=== PATIENT | male | born 1945 | race American Indian/Alaskan Native ===

== ENCOUNTER 2018-01-12 05:55 | Inpatient (IN) | payer MEDICARE, OTHER ==
[2018-01-12] MEDS ORDERED: TYLENOL PR ONE ×2 (06:35→06:46)
[2018-01-12] MEDS ORDERED: MAXIPIME/NS 2 GM/100 ML 2 GM/100 ML BAG IV ONE (06:57)
[2018-01-12] MEDS ORDERED: NACL 0.9% 1000 ML IV ONE (06:57)
--- NOTE | 2018-01-12 07:00 | Emergency Department Report ---
ED General Adult HPI - General Chief complaint: GI Bleed Stated complaint: GI BLEED Time Seen by Provider: 01/12/18 06:46 Source: EMS (ems notes not available at time of chart dictation), RN notes reviewed, old records reviewed Mode of arrival: Stretcher Limitations: Altered Mental Status, Physical Limitation - History of Present Illness Initial comments: This is a 72-year-old male. The patient is previously known to this provider, has a past medical history of stroke, neurogenic dysphasia, recent placement of a PEG tube, comes to us from a local retirement where his primary physician there is Dr. Lay. Patient is sent to the ER by his retirement for evaluation of coffee-ground emesis. Upon arrival to the ER, the patient was found to be septic with a fever and tachycardia. He had urine culture sent last month which demonstrated the following organism: P Stuartii; which was pansensitive with the exception of nitrofurantoin, tetracycline, and tobramycin. The patient is nonverbal and cannot describe exacerbating or relieving factors. No further history is available at this time. Patient found to have suspected pneumonia in the ER, he was hypoxic and placed on room oxygen. A CT scan of the abdomen and pelvis read demonstrated pneumonia, with no obvious intra-abdominal source of infection. Patient was treated empirically according to the sepsis pathway, and had appropriate broad-spectrum antibiotics given. Given renal insufficiency, he was given vancomycin and cefepime instead of Zosyn, which can predispose to worsening renal insufficiency. He is also given Levaquin. Case was discussed with gastroenterology, Dr. Ramos, his group will follow in consultation. Case is presented to the Hospital physician, Dr. Nick Rodrigues; she accepted the patient to the medical service. -: Gradual Severity scale (0 -10): 0 Consistency: other Improves with: other Associated Symptoms: confusion, fever/chills, weakness, other - Related Data Home Medications Medication Instructions Recorded Confirmed Last Taken Amlodipine Besylate [Norvasc] 10 mg PO DAILY 12/27/17 12/27/17 Unknown Finasteride [Proscar] 5 mg PO DAILY 12/27/17 12/27/17 Unknown Previous Rx's Medication Instructions Recorded Last Taken Type Apixaban [Eliquis] 5 mg PO BID #60 tablet 01/04/18 Unknown Rx Aspirin [Aspirin EC] 81 mg PO DAILY #30 tablet. 01/04/18 Unknown Rx AtorvaSTATin [Lipitor] 80 mg PO QHS #30 tablet 01/04/18 Unknown Rx Cefuroxime [Ceftin] 500 mg PO Q12H 5 Days tablet 01/04/18 Unknown Rx HYDROcodone/ACETAMINOPHEN [[place] 1 each PO Q6H PRN #10 tablet 01/04/18 Unknown Rx 5-325 Tablet] Metoprolol [Lopressor TAB] 25 mg PO BID #60 tablet 01/04/18 Unknown Rx Pantoprazole [Protonix] 40 mg PO QDAY #30 tablet 01/04/18 Unknown Rx hydrALAZINE [Apresoline TAB] 50 mg PO Q8HR #30 tablet 01/04/18 Unknown Rx Allergies Allergy/AdvReac Type Severity Reaction Status Date / Time No Known Allergies Allergy Verified 12/26/14 12:14 ED Review of Systems ROS: Stated complaint: GI BLEED Other details as noted in HPI Comment: Unobtainable due to pts medical conditions ED Past Medical Hx - Past Medical History Hx Hypertension: Yes Hx Heart Attack/AMI: No Hx Diabetes: Yes Hx Renal Disease: Yes Hx Sickle Cell Disease: No Hx Seizures: No Hx Kidney Stones: Yes Hx Asthma: No Hx COPD: No Hx Dementia: Yes Additional medical history: high cholesterol. ulcers. anemia. Alzheimer's. Dementia - Surgical History Hx Pacemaker: No Hx Internal Defibrillator: No - Social History Smoking Status: Unknown if ever smoked Substance Use Type: None - Medications Home Medications: Home Medications Medication Instructions Recorded Confirmed Last Taken Type Amlodipine Besylate [Norvasc] 10 mg PO DAILY 12/27/17 12/27/17 Unknown History Finasteride [Proscar] 5 mg PO DAILY 12/27/17 12/27/17 Unknown History Apixaban [Eliquis] 5 mg PO BID #60 tablet 01/04/18 Unknown Rx Aspirin [Aspirin EC] 81 mg PO DAILY #30 tablet. 01/04/18 Unknown Rx AtorvaSTATin [Lipitor] 80 mg PO QHS #30 tablet 01/04/18 Unknown Rx Cefuroxime [Ceftin] 500 mg PO Q12H 5 Days tablet 01/04/18 Unknown Rx HYDROcodone/ACETAMINOPHEN [[place] 1 each PO Q6H PRN #10 tablet 01/04/18 Unknown Rx 5-325 Tablet] Metoprolol [Lopressor TAB] 25 mg PO BID #60 tablet 01/04/18 Unknown Rx Pantoprazole [Protonix] 40 mg PO QDAY #30 tablet 01/04/18 Unknown Rx hydrALAZINE [Apresoline TAB] 50 mg PO Q8HR #30 tablet 01/04/18 Unknown Rx ED Physical Exam - General Limitations: Altered Mental Status, Physical Limitation General appearance: lethargic - Head Head exam: Present: atraumatic, normocephalic - Eye Eye exam: Present: normal appearance - ENT ENT exam: Present: mucous membranes dry - Neck Neck exam: Present: normal inspection, full ROM - Respiratory Respiratory exam: Present: respiratory distress, rales, rhonchi - Cardiovascular Cardiovascular Exam: Present: normal rhythm, tachycardia, normal heart sounds. Absent: systolic murmur, diastolic murmur, rubs, gallop - GI/Abdominal GI/Abdominal exam: Present: soft, normal bowel sounds, other (PEG tube is in place, with no redness, pus or streaking). Absent: distended, tenderness, guarding, rebound, rigid, pulsatile mass - Rectal Rectal exam: Present: normal inspection, heme (-) stool - exam: Present: normal inspection External exam: Present: normal external exam - Extremities Exam Extremities exam: Present: normal inspection, full ROM, other (the compartments are soft. There is no palpable cord.). Absent: tenderness, pedal edema, joint swelling - Back Exam Back exam: Present: normal inspection. Absent: tenderness, CVA tenderness (R), paraspinal tenderness, vertebral tenderness - Neurological Exam Neurological exam: Present: altered, other (nonverbal. Moving 4 extremities. Neurologic examination limited secondary to delirium and acute septic illness.) - Psychiatric Psychiatric exam: Present: normal affect, normal mood - Skin Skin exam: Present: warm, dry, intact, normal color. Absent: rash ED Course Vital Signs 01/12/18 01/12/18 01/12/18 06:06 06:23 06:47 Temperature 101.3 F H Pulse Rate 108 H 98 H Respiratory 28 H 16 16 Rate Blood Pressure Blood Pressure 123/81 [Left] O2 Sat by Pulse 91 95 95 Oximetry 01/12/18 01/12/18 01/12/18 07:00 07:30 09:10 Temperature 100.2 F H 100.2 F H Pulse Rate 100 H 97 H 106 H Respiratory 24 18 18 Rate Blood Pressure 120/80 Blood Pressure 121/80 129/90 [Left] O2 Sat by Pulse 93 100 100 Oximetry ED Medical Decision Making - Lab Data Result diagrams: 01/12/18 07:19 01/12/18 07:19 Vital Signs 01/12/18 01/12/18 01/12/18 06:06 06:23 06:47 Temperature 101.3 F H Pulse Rate 108 H 98 H Respiratory 28 H 16 16 Rate Blood Pressure Blood Pressure 123/81 [Left] O2 Sat by Pulse 91 95 95 Oximetry 01/12/18 01/12/18 01/12/18 07:00 07:30 09:10 Temperature 100.2 F H 100.2 F H Pulse Rate 100 H 97 H 106 H Respiratory 24 18 18 Rate Blood Pressure 120/80 Blood Pressure 121/80 129/90 [Left] O2 Sat by Pulse 93 100 100 Oximetry Lab Results 01/12/18 01/12/18 01/12/18 Range/Units 06:35 07:11 07:19 WBC 12.3 H (4.5-11.0) K/mm3 RBC 4.18 (3.65-5.03) M/mm3 Hgb 12.3 (11.8-15.2) gm/dl Hct 37.6 (35.5-45.6) % MCV 90 (84-94) fl MCH 29 (28-32) pg MCHC 33 (32-34) % RDW 15.2 (13.2-15.2) % Plt Count 524 H (140-440) K/mm3 Lymph % (Auto) 4.6 L (13.4-35.0) % [place] % (Auto) 4.5 (0.0-7.3) % Eos % (Auto) 0.7 (0.0-4.3) % Baso % (Auto) 0.4 (0.0-1.8) % Lymph # 0.6 L (1.2-5.4) K/mm3 Clark # 0.5 (0.0-0.8) K/mm3 Eos # 0.1 (0.0-0.4) K/mm3 Baso # 0.0 (0.0-0.1) K/mm3 Seg Neutrophils % 89.8 H (40.0-70.0) % Seg Neutrophils # 11.0 H (1.8-7.7) K/mm3 PT 17.2 H (12.2-14.9) Sec. INR 1.33 H (0.87-1.13) Sodium (137-145) mmol/L Potassium (3.6-5.0) mmol/L Chloride (98-107) mmol/L Carbon Dioxide (22-30) mmol/L Anion Gap mmol/L BUN (9-20) mg/dL Creatinine (0.8-1.5) mg/dL Estimated GFR ml/min BUN/Creatinine Ratio % Glucose (75-100) mg/dL Lactic Acid (0.7-2.0) mmol/L Calcium (8.4-10.2) mg/dL Magnesium (1.7-2.3) mg/dL Total Bilirubin (0.1-1.2) mg/dL AST (5-40) units/L ALT (7-56) units/L Alkaline Phosphatase (35-129) units/L Troponin T (0.00-0.029) ng/mL Total Protein (6.3-8.2) g/dL Albumin (3.9-5) g/dL Albumin/Globulin Ratio % Triglycerides (2-149) mg/dL Cholesterol (50-199) mg/dL LDL Cholesterol Direct (50-130) mg/dL HDL Cholesterol (40-59) mg/dL Cholesterol/HDL Ratio % Urine Color Yellow (Yellow) Urine Turbidity Clear (Clear) Urine pH 6.0 (5.0-7.0) Ur Specific [place] 1.014 (1.003-1.030) Urine Protein <15 mg/dl (Negative) mg/dL Urine Glucose (UA) Neg (Negative) mg/dL Urine Ketones Neg (Negative) mg/dL Urine Blood Neg (Negative) Urine Nitrite Neg (Negative) Urine Bilirubin Neg (Negative) Urine Urobilinogen < 2.0 (<2.0) mg/dL Ur Leukocyte Esterase Neg (Negative) Urine WBC (Auto) 1.0 (0.0-6.0) /HPF Urine RBC (Auto) 4.0 (0.0-6.0) /HPF U Epithel Cells (Auto) < 1.0 (0-13.0) /HPF Urine Mucus Few /HPF 01/12/18 01/12/18 01/12/18 Range/Units 07:19 07:19 07:19 WBC (4.5-11.0) K/mm3 RBC (3.65-5.03) M/mm3 Hgb (11.8-15.2) gm/dl Hct (35.5-45.6) % MCV (84-94) fl MCH (28-32) pg MCHC (32-34) % RDW (13.2-15.2) % Plt Count (140-440) K/mm3 Lymph % (Auto) (13.4-35.0) % Clark % (Auto) (0.0-7.3) % Eos % (Auto) (0.0-4.3) % Baso % (Auto) (0.0-1.8) % Lymph # (1.2-5.4) K/mm3 Clark # (0.0-0.8) K/mm3 Eos # (0.0-0.4) K/mm3 Baso # (0.0-0.1) K/mm3 Seg Neutrophils % (40.0-70.0) % Seg Neutrophils # (1.8-7.7) K/mm3 PT (12.2-14.9) Sec. INR (0.87-1.13) Sodium 143 (137-145) mmol/L Potassium 4.8 (3.6-5.0) mmol/L Chloride 104.3 (98-107) mmol/L Carbon Dioxide 23 (22-30) mmol/L Anion Gap 21 mmol/L BUN 43 H (9-20) mg/dL Creatinine 1.7 H (0.8-1.5) mg/dL Estimated GFR 48 ml/min BUN/Creatinine Ratio 25 % Glucose 118 H (75-100) mg/dL Lactic Acid 1.20 (0.7-2.0) mmol/L Calcium 9.5 (8.4-10.2) mg/dL Magnesium 2.90 H (1.7-2.3) mg/dL Total Bilirubin 1.70 H (0.1-1.2) mg/dL AST 62 H (5-40) units/L ALT 46 (7-56) units/L Alkaline Phosphatase 105 (35-129) units/L Troponin T 0.172 H* (0.00-0.029) ng/mL Total Protein 8.3 H (6.3-8.2) g/dL Albumin 3.6 L (3.9-5) g/dL Albumin/Globulin Ratio 0.8 % Triglycerides 76 (2-149) mg/dL Cholesterol 90 (50-199) mg/dL LDL Cholesterol Direct 39 L (50-130) mg/dL HDL Cholesterol 35 L (40-59) mg/dL Cholesterol/HDL Ratio 2.57 % Urine Color (Yellow) Urine Turbidity (Clear) Urine pH (5.0-7.0) Ur Specific [place] (1.003-1.030) Urine Protein (Negative) mg/dL Urine Glucose (UA) (Negative) mg/dL Urine Ketones (Negative) mg/dL Urine Blood (Negative) Urine Nitrite (Negative) Urine Bilirubin (Negative) Urine Urobilinogen (<2.0) mg/dL Ur Leukocyte Esterase (Negative) Urine WBC (Auto) (0.0-6.0) /HPF Urine RBC (Auto) (0.0-6.0) /HPF U Epithel Cells (Auto) (0-13.0) /HPF Urine Mucus /HPF - EKG Data -: EKG Interpreted by Fl EKG shows normal: sinus rhythm Rate: tachycardia - EKG Data Interpretation: unchanged when compared t 01/12/18 09:21 Sinus tachycardia, 100 bpm, low voltage, left axis deviation, poor R-wave progression, abnormal EKG, not consistent with a STEMI, appears unchanged when compared to prior EKG from December 28 - Radiology Data Radiology results: report reviewed, image reviewed X-ray the chest, interpreted by radiology: Lower lobe pneumonia CT scan of the abdomen and pelvis, interpreted by radiology: Bilateral lower lobe pneumonia/atelectasis - Medical Decision Making Differential diagnosis, including but not limited to: Sepsis, pneumonia, bacteremia, urinary tract infection patient is managed according to the sepsis pathway and algorithm. Blood cultures, lactic acid ordered, appropriate fluid bolus has been administered. The patient does not demonstrate the need for vasopressor requirements at this time. Critical care attestation.: If time is entered above; I have spent that time in minutes in the direct care of this critically ill patient, excluding procedure time. ED Disposition Clinical Impression: Sepsis Disposition: OP ADMIT IP TO THIS HOSP Is pt being admited?: Yes Condition: Fair Referrals: PRIMARY CARE, [Primary Care Provider] - 3-5 Days Forms: Accompanied Note
[2018-01-12 07:04] LABS: Bilirubin,Urine NEG (Negative); Blood,Urine NEG (Negative); Color,Urine Yellow (Yellow); Mucus,Urine FEW /HPF; Protein,Urine <15 mg/dL mg/dL (Negative); Urobilinogen,Urine < 2.0 mg/dL (<2.0)
--- NOTE | 2018-01-12 07:33 | XRay Report ---
FINAL REPORT EXAM: XR CHEST 1V AP HISTORY: Fever/Sepsis. TECHNIQUE: A single frontal portable radiograph of the chest was obtained. No prior studies are available for comparison. FINDINGS: There is moderate lordotic positioning. The heart is normal in size, and the aortic arch is moderately calcified. There is hazy opacification at the retrocardiac left lung base, in keeping with infiltrate/atelectasis. There is no pleural effusion or pneumothorax. Mild spondylotic changes are seen in the spine. IMPRESSION: Opacification of the left lung base, in keeping with infiltrate and/or atelectasis.
[2018-01-12] MEDS ORDERED: NACL 0.9% 250ML 250 ML ONE (07:39)
[2018-01-12 07:42] LABS: Basophils % (Auto) 0.4 % (0.0-1.8); Eosinophils # (Auto) 0.1 K/mm3 (0.0-0.4); Eosinophils % (Auto) 0.7 % (0.0-4.3); Hematocrit 37.6 % (35.5-45.6); Hemoglobin 12.3 gm/dl (11.8-15.2); Lymphocytes # (Auto) 0.6 K/mm3 (1.2-5.4); Lymphocytes % (Auto) 4.6 % (13.4-35.0); Mean Corpuscular HGB Conc 33 % (32-34); Mean Corpuscular Hemoglobin 29 pg (28-32); Mean Corpuscular Volume 90 fl (84-94); Monocytes # (Auto) 0.5 K/mm3 (0.0-0.8); Monocytes % (Auto) 4.5 % (0.0-7.3); Platelet Count 524 K/mm3 (140-440); Red Blood Count 4.18 M/mm3 (3.65-5.03); Red Cell Distribution Width 15.2 % (13.2-15.2)
[2018-01-12 07:53] LABS: INR 1.33 (0.87-1.13)
[2018-01-12] MEDS ORDERED: PROTONIX IV ONE (08:00)
[2018-01-12] MEDS ORDERED: VANCOMYCIN/NS 1 GM/250 ML 1 GM/250 ML BAG IV NR (08:00)
[2018-01-12] MEDS ORDERED: MAXIPIME 2 GM in NACL 0.9% 20 ML IV ONE (08:00)
[2018-01-12 08:26] LABS: Albumin 3.6 g/dL (3.9-5); Calcium 9.5 mg/dL (8.4-10.2)
[2018-01-12 09:00] LABS: Chol/HDL Ratio 2.57 %
--- NOTE | 2018-01-12 09:08 | Cat Scan Report ---
CT scan of abdomen and pelvis without IV contrast: History: Fever and sepsis. Findings: Left basilar atelectasis/infiltrate. No pleural pericardial effusion. Moderate size sliding hiatal hernia. Faint calcification liver probably old calcified granuloma. No mass. No intrahepatic or extrahepatic duct dilatation. Normal pancreas and spleen. Suspicion of tiny calculi in the gallbladder. Normal adrenals. Vascular calcifications in the kidneys. No calculi kidney parenchyma or bladder. 1.9 cm cyst left kidney No free intraperitoneal fluid or air. No evidence of an adenopathy. Atherosclerotic aorta. Fecal impaction in rectum. Moderate amount of stool in colon. No significant distention. No evidence of appendicitis or diverticulitis. Stable gastrostomy tube. Impression: Left basilar atelectasis/infiltrates. Moderate-sized sliding hiatal hernia. Suspicion of tiny calculi in the gallbladder. Cystoscopy left kidney. Additional findings as detailed above
[2018-01-12] MEDS ORDERED: LEVAQUIN 750MG/150ML 750 MG/150 ML BAG IV ONE (09:12)
[2018-01-12] MEDS ORDERED: NORCO 5/325 PO PRN (10:43)
--- NOTE | 2018-01-12 10:48 | History and Physical Report ---
History of Present Illness Date of examination: 01/12/18 Date of admission: 01/12/18 09:23 Chief complaint: Coffee-ground emesis History of present illness: 72-year-old male patient with history of CVA dysphagia recently underwent PEG placement in intermediate resident presented to the emergency room with history of coffee-ground emesis. Initial evaluation in the emergency room is consistent with possible pneumonia Patient unable to give proper history, Initial evaluation also revealed acute kidney injury, leukocytosis and mild elevation of troponin Past History Past Medical History: hypertension, hyperlipidemia, stroke (the residual weakness, dysphagia), other (carotid artery stenosis) Past Surgical History: Other (PEG placement) Social history: full code, other (intermediate resident). denies: smoking, alcohol abuse Family history: hypertension Medications and Allergies Allergies Allergy/AdvReac Type Severity Reaction Status Date / Time No Known Allergies Allergy Verified 12/26/14 12:14 Home Medications Medication Instructions Recorded Confirmed Last Taken Type Amlodipine Besylate [Norvasc] 10 mg PO DAILY 12/27/17 01/12/18 Unknown History Finasteride [Proscar] 5 mg PO DAILY 12/27/17 01/12/18 Unknown History Apixaban [Eliquis] 5 mg PO BID #60 tablet 01/04/18 01/12/18 Unknown Rx Aspirin [Aspirin EC] 81 mg PO DAILY #30 tablet. 01/04/18 01/12/18 Unknown Rx AtorvaSTATin [Lipitor] 80 mg PO QHS #30 tablet 01/04/18 01/12/18 Unknown Rx HYDROcodone/ACETAMINOPHEN [[place] 1 each PO Q6H PRN #10 tablet 01/04/18 01/12/18 Unknown Rx 5-325 Tablet] Metoprolol [Lopressor TAB] 25 mg PO BID #60 tablet 01/04/18 01/12/18 Unknown Rx hydrALAZINE [Apresoline TAB] 50 mg PO Q8HR #30 tablet 01/04/18 01/12/18 Unknown Rx Active Meds: Active Medications Acetaminophen/Hydrocodone Bitart ([place] 5/325) 1 each PO Q6H PRN PRN Reason: Pain Amlodipine Besylate (Norvasc) 10 mg PO DAILY DERREK Atorvastatin Calcium (Lipitor) 80 mg PO QHS DERREK Finasteride (Proscar) 5 mg PO DAILY DERREK Hydralazine HCl (Apresoline) 50 mg PO Q8HR DERREK Metoprolol Tartrate (Lopressor) 25 mg PO BID DERREK Pantoprazole Sodium (Protonix) 40 mg IV BID DERREK Review of Systems ROS unobtainable: due to mental status Exam - Constitutional Vitals: Temp Pulse Resp BP Pulse Ox 100.2 F H 106 H 18 129/90 100 01/12/18 09:10 01/12/18 09:10 01/12/18 09:10 01/12/18 09:10 01/12/18 09:10 General appearance: Present: no acute distress, cachectic, disheveled, other ( noncommunicative) - EENT Eyes: Present: PERRL, EOM intact - Neck Neck: Present: supple, normal ROM - Respiratory Respiratory effort: normal Respiratory: bilateral: diminished, rhonchi, negative: rales, wheezing - Cardiovascular Rhythm: regular Heart Sounds: Present: S1 & S2 - Extremities Extremities: no ischemia, No edema - Abdominal General gastrointestinal: Present: soft, non-tender, non-distended, normal bowel sounds, other (PEG in place) - Integumentary Integumentary: Present: clear, warm - Musculoskeletal Musculoskeletal: other (residual weakness) - Psychiatric Psychiatric: other (noncommunicative) - Neurologic Neurologic: other (CVA with history of weakness) Results - Labs CBC & Chem 7: 01/12/18 07:19 01/12/18 07:19 Labs: Abnormal lab results 01/12/18 01/12/18 01/12/18 Range/Units 07:11 07:19 07:19 WBC 12.3 H (4.5-11.0) K/mm3 Plt Count 524 H (140-440) K/mm3 Lymph % (Auto) 4.6 L (13.4-35.0) % Lymph # 0.6 L (1.2-5.4) K/mm3 Seg Neutrophils % 89.8 H (40.0-70.0) % Seg Neutrophils # 11.0 H (1.8-7.7) K/mm3 PT 17.2 H (12.2-14.9) Sec. INR 1.33 H (0.87-1.13) BUN 43 H (9-20) mg/dL Creatinine 1.7 H (0.8-1.5) mg/dL Glucose 118 H (75-100) mg/dL Magnesium (1.7-2.3) mg/dL Total Bilirubin 1.70 H (0.1-1.2) mg/dL AST 62 H (5-40) units/L Troponin T 0.172 H* (0.00-0.029) ng/mL Total Protein 8.3 H (6.3-8.2) g/dL Albumin 3.6 L (3.9-5) g/dL LDL Cholesterol Direct 39 L (50-130) mg/dL HDL Cholesterol 35 L (40-59) mg/dL 01/12/18 Range/Units 07:19 WBC (4.5-11.0) K/mm3 Plt Count (140-440) K/mm3 Lymph % (Auto) (13.4-35.0) % Lymph # (1.2-5.4) K/mm3 Seg Neutrophils % (40.0-70.0) % Seg Neutrophils # (1.8-7.7) K/mm3 PT (12.2-14.9) Sec. INR (0.87-1.13) BUN (9-20) mg/dL Creatinine (0.8-1.5) mg/dL Glucose (75-100) mg/dL Magnesium 2.90 H (1.7-2.3) mg/dL Total Bilirubin (0.1-1.2) mg/dL AST (5-40) units/L Troponin T (0.00-0.029) ng/mL Total Protein (6.3-8.2) g/dL Albumin (3.9-5) g/dL LDL Cholesterol Direct (50-130) mg/dL HDL Cholesterol (40-59) mg/dL Assessment and Plan --Coffee-ground emesis; closely monitor H&H and transfuse as needed GI evaluation for possible endoscopy, Protonix --Sepsis; empiric antibiotics, follow cultures, IV fluids Consider ID evaluation if needed --Acute kidney injury; vasomotor nephropathy, gentle hydration, closely monitor renal function Avoid nephrotoxins --Left lower lobe pneumonia; continue antibiotics follow cultures and supportive care --Hypertension; moderate control, continue current antihypertensives and when necessary medications --Dyslipidemia; stable on lipid-lowering medicine --History of CVA with residual weakness; supportive care Physical therapy occupational therapy --Dysphagia; status post PEG; continue PEG care PEG feeds per protocol --DVT prophylaxis; hold Eliquis, SCDs --Full CODE STATUS
[2018-01-12] MEDS ORDERED: VANCOMYCIN PHARMACY TO DOSE IV SCH (11:00)
[2018-01-12] MEDS ORDERED: VANCOMYCIN/NS 1 GM/250 ML 1 GM/250 ML BAG IV SCH (11:00)
[2018-01-12] MEDS: ZOSYN/NS 2.25 GM/50ML 2.25 GM/50 ML BAG IV SCH ×2 (11:33→18:32)
[2018-01-12] MEDS: LOPRESSOR PO SCH ×2 (11:33→22:55)
[2018-01-12] MEDS: APRESOLINE PO SCH (13:16)
[2018-01-12] MEDS ORDERED: ZOSYN/NS 4.5GM/100ML 4.5 GM/100 ML VIAL IV SCH (14:00)
--- NOTE | 2018-01-12 17:27 | Gastroenterology Consultation ---
History of Present Illness - Reason for Consult Consult date: 01/12/18 coffee ground emesis Requesting physician: NICOLE CASTILLO - History of Present Illness Mr Swanson is a 73 yo male with h/o CVA, dementia, and neurogenic dysphagia with recent PEG tube placement who presents with intermediate with reported coffee ground emesis episode. Patient found to be septic on arrival to ED with imaging showing suspected pneumonia. Pt unable to provide history 2/2 mental status, and history obtained from chart review and discussion with care team. He has had no gi bleeding episodes since arrival to the ED and admission to the floor. No reported intolerance to peg tube feedings or blood in peg tube. No melena or hematemesis since admission. H/H normal on admission. Past History Past Medical History: diabetes, hypertension, stroke, other (dementia, ckd) Past Surgical History: Other (peg tube placement) Social history: other (unable to obtain) Family history: other (unable to obtain) Medications and Allergies Allergies Allergy/AdvReac Type Severity Reaction Status Date / Time No Known Allergies Allergy Verified 12/26/14 12:14 Home Medications Medication Instructions Recorded Confirmed Last Taken Type Amlodipine Besylate [Norvasc] 10 mg PO DAILY 12/27/17 01/12/18 Unknown History Finasteride [Proscar] 5 mg PO DAILY 12/27/17 01/12/18 Unknown History Apixaban [Eliquis] 5 mg PO BID #60 tablet 01/04/18 01/12/18 Unknown Rx Aspirin [Aspirin EC] 81 mg PO DAILY #30 tablet. 01/04/18 01/12/18 Unknown Rx AtorvaSTATin [Lipitor] 80 mg PO QHS #30 tablet 01/04/18 01/12/18 Unknown Rx HYDROcodone/ACETAMINOPHEN [[place] 1 each PO Q6H PRN #10 tablet 01/04/18 01/12/18 Unknown Rx 5-325 Tablet] Metoprolol [Lopressor TAB] 25 mg PO BID #60 tablet 01/04/18 01/12/18 Unknown Rx hydrALAZINE [Apresoline TAB] 50 mg PO Q8HR #30 tablet 01/04/18 01/12/18 Unknown Rx Active Meds: Active Medications Acetaminophen/Hydrocodone Bitart ([place] 5/325) 1 each PO Q6H PRN PRN Reason: Pain Amlodipine Besylate (Norvasc) 10 mg PO DAILY [facility]REK Atorvastatin Calcium (Lipitor) 80 mg PO QHS [facility] Finasteride (Proscar) 5 mg PO DAILY [facility] Hydralazine HCl (Apresoline) 50 mg PO Q8HR [facility] Last Admin: 01/12/18 13:16 Dose: 50 mg Piperacillin Sod/Tazobactam Sod (Zosyn/Ns 2.25 Gm/50ml) 2.25 gm in 50 mls @ 100 mls/hr IV Q6HR [facility] Last Admin: 01/12/18 11:33 Dose: 100 mls/hr Vancomycin HCl (Vancomycin/Ns 1 Gm/250 Ml) 1 gm in 250 mls @ 166.667 mls/hr IV Q24HR [facility] Metoprolol Tartrate (Lopressor) 25 mg PO BID [facility] Last Admin: 01/12/18 11:33 Dose: 25 mg Pantoprazole Sodium (Protonix) 40 mg IV BID [facility] Vancomycin HCl (Vancomycin Pharmacy To Dose) 1 each IV PKCONSULT [facility] Review of Systems - Review of Systems ROS unobtainable: due to mental status Exam - Constitutional Vital Signs: Temp Pulse Resp BP Pulse Ox 98.4 F 104 H 20 129/87 97 01/12/18 12:11 01/12/18 12:11 01/12/18 12:11 01/12/18 12:11 01/12/18 12:11 General appearance: other (non-verbal, nad, chronically ill appearing) - EENT ENT: other (dry mucous membranes) - Respiratory Respiratory effort: normal Respiratory: bilateral: CTA - Cardiovascular Rhythm: regular Heart Sounds: Present: S1 & S2 Extremities: No edema - Gastrointestinal General gastrointestinal: Present: soft, non-distended, normal bowel sounds, other (+ peg tube site c/d/i) - Neurologic Neurological: other (non-verbal) - Labs CBC & Chem 7: 01/12/18 07:19 01/12/18 07:19 Lab Results: Laboratory Results - last 24 hr 01/12/18 01/12/18 01/12/18 06:35 07:11 07:19 WBC 12.3 H RBC 4.18 Hgb 12.3 Hct 37.6 MCV 90 MCH 29 MCHC 33 RDW 15.2 Plt Count 524 H Lymph % (Auto) 4.6 L [place] % (Auto) 4.5 Eos % (Auto) 0.7 Baso % (Auto) 0.4 Lymph # 0.6 L [place] # 0.5 Eos # 0.1 Baso # 0.0 Seg Neutrophils % 89.8 H Seg Neutrophils # 11.0 H PT 17.2 H INR 1.33 H Sodium Potassium Chloride Carbon Dioxide Anion Gap BUN Creatinine Estimated GFR BUN/Creatinine Ratio Glucose POC Glucose Lactic Acid Calcium Magnesium Total Bilirubin AST ALT Alkaline Phosphatase Troponin T Total Protein Albumin Albumin/Globulin Ratio Triglycerides Cholesterol LDL Cholesterol Direct HDL Cholesterol Cholesterol/HDL Ratio Urine Color Yellow Urine Turbidity Clear Urine pH 6.0 Ur Specific [place] 1.014 Urine Protein <15 mg/dl Urine Glucose (UA) Neg Urine Ketones Neg Urine Blood Neg Urine Nitrite Neg Urine Bilirubin Neg Urine Urobilinogen < 2.0 Ur Leukocyte Esterase Neg Urine WBC (Auto) 1.0 Urine RBC (Auto) 4.0 U Epithel Cells (Auto) < 1.0 Urine Mucus Few 01/12/18 01/12/18 01/12/18 07:19 07:19 07:19 WBC RBC Hgb Hct MCV MCH MCHC RDW Plt Count Lymph % (Auto) [place] % (Auto) Eos % (Auto) Baso % (Auto) Lymph # [place] # Eos # Baso # Seg Neutrophils % Seg Neutrophils # PT INR Sodium 143 Potassium 4.8 Chloride 104.3 Carbon Dioxide 23 Anion Gap 21 BUN 43 H Creatinine 1.7 H Estimated GFR 48 BUN/Creatinine Ratio 25 Glucose 118 H POC Glucose Lactic Acid 1.20 Calcium 9.5 Magnesium 2.90 H Total Bilirubin 1.70 H AST 62 H ALT 46 Alkaline Phosphatase 105 Troponin T 0.172 H* Total Protein 8.3 H Albumin 3.6 L Albumin/Globulin Ratio 0.8 Triglycerides 76 Cholesterol 90 LDL Cholesterol Direct 39 L HDL Cholesterol 35 L Cholesterol/HDL Ratio 2.57 Urine Color Urine Turbidity Urine pH Ur Specific [place] Urine Protein Urine Glucose (UA) Urine Ketones Urine Blood Urine Nitrite Urine Bilirubin Urine Urobilinogen Ur Leukocyte Esterase Urine WBC (Auto) Urine RBC (Auto) U Epithel Cells (Auto) Urine Mucus 01/12/18 01/12/18 09:49 12:01 WBC RBC Hgb Hct MCV MCH MCHC RDW Plt Count Lymph % (Auto) [place] % (Auto) Eos % (Auto) Baso % (Auto) Lymph # [place] # Eos # Baso # Seg Neutrophils % Seg Neutrophils # PT INR Sodium Potassium Chloride Carbon Dioxide Anion Gap BUN Creatinine Estimated GFR BUN/Creatinine Ratio Glucose POC Glucose 117 H Lactic Acid 0.90 Calcium Magnesium Total Bilirubin AST ALT Alkaline Phosphatase Troponin T Total Protein Albumin Albumin/Globulin Ratio Triglycerides Cholesterol LDL Cholesterol Direct HDL Cholesterol Cholesterol/HDL Ratio Urine Color Urine Turbidity Urine pH Ur Specific [place] Urine Protein Urine Glucose (UA) Urine Ketones Urine Blood Urine Nitrite Urine Bilirubin Urine Urobilinogen Ur Leukocyte Esterase Urine WBC (Auto) Urine RBC (Auto) U Epithel Cells (Auto) Urine Mucus - Imaging CT Scan: report reviewed Assessment and Plan 1. Coffee ground emesis 2. Sepsis 3. oropharyngeal dysphagia -no signs of gi bleeding since admission and H/H stable on initial labs. given sepsis and co-morbidities, would hold off on endoscopy unless there were signs further signs of overt gi bleeding. start PPI BID dosing, trend labs. will follow.
[2018-01-12] MEDS: PROTONIX IV SCH (22:55)
[2018-01-13] MEDS: ZOSYN/NS 2.25 GM/50ML 2.25 GM/50 ML BAG IV SCH ×2 (00:02→06:55)
[2018-01-13] MEDS: APRESOLINE PO SCH ×4 (00:02→21:55)
--- NOTE | 2018-01-13 10:04 | Gastroenterology Progress Note ---
<JS ALFREDO - Last Filed: 01/13/18 10:10> Assessment and Plan 1. Coffee ground emesis 2. Sepsis/penumonia 3. oropharyngeal dysphagia (s/p PEG) -H/H stable- continue to monitor and transfuse as needed -no active signs of bleeding -no plans for an EGD at this time unless overt bleeding develops -continue PPI and supportive care -okay to resume TFs at 10ml/hr- advance per nutrition recommendations -no further GI recommendations -will sign off, please call if needed Subjective Date of service: 01/13/18 Principal diagnosis: coffee-ground emesis Interval history: No acute distress. No signs of active bleeding overnight or this am per nursing. Objective - Constitutional Vitals: Temp Pulse Resp BP Pulse Ox 97.9 F 86 20 109/71 100 01/13/18 07:54 01/13/18 07:54 01/13/18 07:54 01/13/18 07:54 01/13/18 07:54 General appearance: no acute distress, other (nonverbal) - Respiratory Respiratory: bilateral: diminished, rhonchi - Cardiovascular Rhythm: regular Heart Sounds: Present: S1 & S2 - Gastrointestinal General gastrointestinal: Present: soft, non-distended, normal bowel sounds, other (+PEG-site benign) - Labs CBC & Chem 7: 01/12/18 07:19 01/12/18 07:19 Labs: Laboratory Results - last 24 hr 01/12/18 01/12/18 01/12/18 09:49 12:01 15:29 POC Glucose 117 H 114 H Lactic Acid 0.90 01/13/18 01/13/18 00:13 06:22 POC Glucose 88 78 Lactic Acid <JASON AGUIRRE - Last Filed: 01/13/18 15:34> Assessment and Plan Patient seen and examined. Agree with note above. No signs of gi bleeding since admission. okay to restart tube feeds per nutrition recommendations. cont PPI. will sign off, please call as needed or with questions. Objective - Constitutional Vitals: Temp Pulse Resp BP Pulse Ox 98.9 F 80 20 129/78 95 01/13/18 11:13 01/13/18 11:13 01/13/18 11:13 01/13/18 11:13 01/13/18 11:13 - Labs CBC & Chem 7: 05/03/18 07:19 01/12/18 07:19 Labs: Laboratory Results - last 24 hr 01/12/18 01/13/18 01/13/18 15:29 00:13 06:22 POC Glucose 114 H 88 78 01/13/18 11:18 POC Glucose 91
[2018-01-13] MEDS ORDERED: SIMPLE SYRUP FEEDTUBE PRN ×2 (11:18)
[2018-01-13] MEDS ORDERED: PANCREAZE DR 10,500 UNIT FEEDTUBE PRN (11:18)
[2018-01-13] MEDS ORDERED: SODIUM BICARBONATE FEEDTUBE PRN (11:18)
[2018-01-13] MEDS: LOPRESSOR PO SCH ×2 (11:39→21:56)
[2018-01-13] MEDS: NORVASC PO SCH (11:39)
[2018-01-13] MEDS: PROSCAR PO SCH (11:40)
[2018-01-13] MEDS: VANCOMYCIN/NS 1 GM/250 ML 1 GM/250 ML BAG IV SCH (11:41)
[2018-01-13] MEDS: PROTONIX IV SCH (11:41)
[2018-01-13] MEDS: ZOSYN/NS 4.5GM/100ML 4.5 GM/100 ML VIAL IV SCH ×2 (17:56→22:00)
--- NOTE | 2018-01-13 18:25 | Progress Note ---
Assessment and Plan Assessment and plan: --Coffee-ground emesis; no new episodes since admission , hemodynamically stable H&H is stable , GI evaluated the patient , no need for endoscopy at this point Conservative management continue Protonix --Sepsis; due to pneumonia ,empiric antibiotics, follow cultures, IV fluids --Acute kidney injury; vasomotor nephropathy, gentle hydration, closely monitor renal function, Avoid nephrotoxins --Left lower lobe pneumonia; continue antibiotics follow cultures and supportive care --Hypertension; moderate control, continue current antihypertensives --Dyslipidemia; stable on lipid-lowering medicine --History of CVA with residual weakness; supportive care Physical therapy occupational therapy --Dysphagia; status post PEG; continue PEG care PEG feeds per protocol --DVT prophylaxis; hold Eliquis, SCDs --Full CODE STATUS Possible discharge in 1-2 days for staple History Interval history: Patient seen and examined medical records reviewed Patient is noncommunicative, hemodynamically stable No new events reported by the nursing staff GI evaluated no acute intervention Vital signs reviewed Hospitalist Physical - Constitutional Vitals: Temp Pulse Resp BP Pulse Ox 97.6 F 77 20 127/79 96 01/13/18 15:23 01/13/18 15:23 01/13/18 15:23 01/13/18 15:23 01/13/18 15:23 General appearance: Present: no acute distress, cachectic, disheveled, other ( noncommunicative) - EENT Eyes: Present: PERRL, EOM intact - Neck Neck: Present: supple, normal ROM - Respiratory Respiratory effort: normal Respiratory: bilateral: diminished, negative: rales, rhonchi, wheezing - Cardiovascular Rhythm: regular Heart Sounds: Present: S1 & S2 - Extremities Extremities: no ischemia, pulses intact, pulses symmetrical - Abdominal General gastrointestinal: soft, non-tender, non-distended, normal bowel sounds - Integumentary Integumentary: Present: clear, warm - Psychiatric Psychiatric: appropriate mood/affect, cooperative - Neurologic Neurologic: CNII-XII intact, moves all extremities Results - Labs CBC & Chem 7: 01/12/18 07:19 01/12/18 07:19 Labs: Laboratory Last Values WBC 12.3 K/mm3 (4.5-11.0) H 01/12/18 07:19 RBC 4.18 M/mm3 (3.65-5.03) 01/12/18 07:19 Hgb 12.3 gm/dl (11.8-15.2) 01/12/18 07:19 Hct 37.6 % (35.5-45.6) 01/12/18 07:19 MCV 90 fl (84-94) 01/12/18 07:19 MCH 29 pg (28-32) 01/12/18 07:19 MCHC 33 % (32-34) 01/12/18 07:19 RDW 15.2 % (13.2-15.2) 01/12/18 07:19 Plt Count 524 K/mm3 (140-440) H 01/12/18 07:19 Lymph % (Auto) 4.6 % (13.4-35.0) L 01/12/18 07:19 [place] % (Auto) 4.5 % (0.0-7.3) 01/12/18 07:19 Eos % (Auto) 0.7 % (0.0-4.3) 01/12/18 07:19 Baso % (Auto) 0.4 % (0.0-1.8) 01/12/18 07:19 Lymph # 0.6 K/mm3 (1.2-5.4) L 01/12/18 07:19 [place] # 0.5 K/mm3 (0.0-0.8) 01/12/18 07:19 Eos # 0.1 K/mm3 (0.0-0.4) 01/12/18 07:19 Baso # 0.0 K/mm3 (0.0-0.1) 01/12/18 07:19 Seg Neutrophils % 89.8 % (40.0-70.0) H 01/12/18 07:19 Seg Neutrophils # 11.0 K/mm3 (1.8-7.7) H 01/12/18 07:19 PT 17.2 Sec. (12.2-14.9) H 01/12/18 07:11 INR 1.33 (0.87-1.13) H 01/12/18 07:11 Sodium 143 mmol/L (137-145) 01/12/18 07:19 Potassium 4.8 mmol/L (3.6-5.0) 01/12/18 07:19 Chloride 104.3 mmol/L (98-107) 01/12/18 07:19 Carbon Dioxide 23 mmol/L (22-30) 01/12/18 07:19 Anion Gap 21 mmol/L 01/12/18 07:19 BUN 43 mg/dL (9-20) H 01/12/18 07:19 Creatinine 1.7 mg/dL (0.8-1.5) H 01/12/18 07:19 Estimated GFR 48 ml/min 01/12/18 07:19 BUN/Creatinine Ratio 25 % 01/12/18 07:19 Glucose 118 mg/dL (75-100) H 01/12/18 07:19 POC Glucose 78 (70-105) 01/13/18 15:28 Lactic Acid 0.90 mmol/L (0.7-2.0) 01/12/18 09:49 Calcium 9.5 mg/dL (8.4-10.2) 01/12/18 07:19 Magnesium 2.90 mg/dL (1.7-2.3) H 01/12/18 07:19 Total Bilirubin 1.70 mg/dL (0.1-1.2) H 01/12/18 07:19 AST 62 units/L (5-40) H 01/12/18 07:19 ALT 46 units/L (7-56) 01/12/18 07:19 Alkaline Phosphatase 105 units/L (35-129) 01/12/18 07:19 Troponin T 0.172 ng/mL (0.00-0.029) H* 01/12/18 07:19 Total Protein 8.3 g/dL (6.3-8.2) H 01/12/18 07:19 Albumin 3.6 g/dL (3.9-5) L 01/12/18 07:19 Albumin/Globulin Ratio 0.8 % 01/12/18 07:19 Triglycerides 76 mg/dL (2-149) 01/12/18 07:19 Cholesterol 90 mg/dL (50-199) 01/12/18 07:19 LDL Cholesterol Direct 39 mg/dL (50-130) L 01/12/18 07:19 HDL Cholesterol 35 mg/dL (40-59) L 01/12/18 07:19 Cholesterol/HDL Ratio 2.57 % 01/12/18 07:19 Urine Color Yellow (Yellow) 01/12/18 06:35 Urine Turbidity Clear (Clear) 01/12/18 06:35 Urine pH 6.0 (5.0-7.0) 01/12/18 06:35 Ur Specific [employer] 1.014 (1.003-1.030) 01/12/18 06:35 Urine Protein <15 mg/dl mg/dL (Negative) 01/12/18 06:35 Urine Glucose (UA) Neg mg/dL (Negative) 01/12/18 06:35 Urine Ketones Neg mg/dL (Negative) 01/12/18 06:35 Urine Blood Neg (Negative) 01/12/18 06:35 Urine Nitrite Neg (Negative) 01/12/18 06:35 Urine Bilirubin Neg (Negative) 01/12/18 06:35 Urine Urobilinogen < 2.0 mg/dL (<2.0) 01/12/18 06:35 Ur Leukocyte Esterase Neg (Negative) 01/12/18 06:35 Urine WBC (Auto) 1.0 /HPF (0.0-6.0) 01/12/18 06:35 Urine RBC (Auto) 4.0 /HPF (0.0-6.0) 01/12/18 06:35 U Epithel Cells (Auto) < 1.0 /HPF (0-13.0) 01/12/18 06:35 Urine Mucus Few /HPF 01/12/18 06:35
[2018-01-13] MEDS: PROTONIX FEEDTUBE SCH (21:58)
[2018-01-14] MEDS: ZOSYN/NS 4.5GM/100ML 4.5 GM/100 ML VIAL IV SCH (05:47)
[2018-01-14] MEDS: APRESOLINE PO SCH ×2 (05:49→16:20)
[2018-01-14 07:28] LABS: Calcium 8.6 mg/dL (8.4-10.2)
[2018-01-14] MEDS: LOPRESSOR PO SCH (10:47)
[2018-01-14] MEDS: PROSCAR PO SCH (10:47)
[2018-01-14] MEDS: NORVASC PO SCH (10:48)
[2018-01-14] MEDS: PROTONIX FEEDTUBE SCH (10:48)
[2018-01-14] MEDS: VANCOMYCIN/NS 1 GM/250 ML 1 GM/250 ML BAG IV SCH (11:33)
--- NOTE | 2018-01-14 12:53 | Discharge Summary ---
Providers - Providers Date of Admission: 01/12/18 09:23 Date of discharge: 01/14/18 Attending physician: MARK GOODMAN 01/12/18 06:59 Consult to Physician [CONS] Urgent Comment: Consulting Provider: VIRI COLLADO Physician Instructions: Reason For Exam: hx of coffee gound emesis 01/12/18 18:33 Consult to Dietitian/Nutrition [CONS] Routine Physician Instructions: Reason For Exam: Reason for Consult: Write/Manage Tube Feeding Primary care physician: FARA BROWNLEE Hospitalization Condition: Fair Disposition: DC/[place]-03 SNF [facility] CERT Core Measure Documentation - Palliative Care Palliative Care/ Comfort Measures: Not Applicable - Core Measures Any of the following diagnoses?: none Exam - Constitutional Vitals: Temp Pulse Resp BP Pulse Ox 98.2 F 90 20 121/79 100 01/14/18 10:57 01/14/18 10:57 01/14/18 10:57 01/14/18 10:57 01/14/18 10:57 General appearance: Present: no acute distress, well-nourished - EENT Eyes: Present: PERRL, EOM intact - Neck Neck: Present: supple, normal ROM - Respiratory Respiratory effort: normal Respiratory: bilateral: rhonchi, negative: rales, wheezing - Cardiovascular Rhythm: regular Heart Sounds: Present: S1 & S2 - Extremities Extremities: no ischemia, No edema Peripheral Pulses: within normal limits - Abdominal General gastrointestinal: Present: soft, non-tender, non-distended, normal bowel sounds, other (PEG tube in place) - Integumentary Integumentary: Present: clear, warm - Musculoskeletal Musculoskeletal: strength equal bilaterally - Psychiatric Psychiatric: other (noncommunicative) - Neurologic Neurologic: other (minimally communicative) Plan Activity: advance as tolerated, fall precautions Diet: other (PEG feeds per protocol) Special Instructions: physical therapy Additional Instructions: Follow GI as needed. Aspiration precautions. Fall precautions Follow up with: PRIMARY CAREMD [Referring] - 3-5 Days JASON AGUIRRE MD [Staff Physician] - 7 Days Forms: Accompanied Note Prescriptions: Levofloxacin [Levaquin TAB] 500 mg PO Q24HR #5 tablet
[2018-01-14] MEDS ORDERED: LEVAQUIN PO ONE (14:00)
[2018-01-14] MEDS ORDERED: SODIUM BICARBONATE FEEDTUBE PRN (14:06)
[2018-01-14] MEDS ORDERED: PANCREAZE DR 10,500 UNIT FEEDTUBE PRN (14:06)
[2018-01-14] MEDS ORDERED: SIMPLE SYRUP FEEDTUBE PRN ×2 (14:06)
[2018-01-14 16:05] VITALS: BP 114/69
[2018-01-15] MEDS ORDERED: LEVAQUIN PO SCH (14:00)
== END 2018-01-14 18:20 | disposition home or self-care (01) | DRG 871 ==
LOC: ED 05:55 → 3A 09:23 → 4A 10:35
PROVIDERS: ADMIT Internal Medicine; ATTEND Internal Medicine
DX: A41.9 Sepsis, unspecified organism (principal); N17.0 Acute kidney failure with tubular necrosis; J18.1 Lobar pneumonia, unspecified organism; I10 Essential (primary) hypertension; E11.9 Type 2 diabetes mellitus without complications; F03.90 Unspecified dementia, unspecified severity, without behavioral disturbance, psychotic disturbance, mood disturbance, and anxiety; R13.12 Dysphagia, oropharyngeal phase; E78.5 Hyperlipidemia, unspecified; Z86.73 Personal history of transient ischemic attack (TIA), and cerebral infarction without residual deficits; Z79.899 Other long term (current) drug therapy; Z87.442 Personal history of urinary calculi; Z79.82 Long term (current) use of aspirin; Z82.49 Family history of ischemic heart disease and other diseases of the circulatory system
CPT/HCPCS: 36415; 71045; 74176; 80048; 80053; 80061; 81001; 82140; 82962; 83735; 84100; 84484; 85025; 85610; 87040; 87086; 93005; 93010; A9270-GY; C9113; J0692; J2543; J3370; J7030; J7050

== ENCOUNTER 2018-02-25 22:51 | Inpatient (IN) | payer MEDICARE, OTHER ==
[2018-02-25] MEDS ORDERED: NACL 0.9% 500 ML 500 ML IV ONE (23:01)
[2018-02-25] MEDS ORDERED: PROVENTIL IH ONE ×2 (23:26→23:28)
[2018-02-25] MEDS ORDERED: NACL 0.9% 1000 ML IV ONE (23:27)
[2018-02-25] MEDS ORDERED: TYLENOL PR ONE (23:27)
[2018-02-25] MEDS ORDERED: LEVAQUIN 500MG/100ML 500 MG/100 ML BAG IV ONE (23:29)
[2018-02-25] MEDS ORDERED: ZOSYN/NS 3.375GM/50ML 3.375 GM/50 ML BAG IV SCH (23:30)
--- NOTE | 2018-02-25 23:34 | XRay Report ---
FINAL REPORT PROCEDURE: XR CHEST 1V AP TECHNIQUE: Chest radiograph anteroposterior view. CPT 75408 HISTORY: possible Sepsis COMPARISON: 01/12/2018 FINDINGS: Heart: Normal. Mediastinum/Vessels: Moderate atherosclerosis of the aorta. Lungs/Pleural space: Mild vascular congestion. No consolidation, effusion or pneumothorax. Bony thorax: No acute osseous abnormality. Life support devices: None. IMPRESSION: Mild vascular congestion. No consolidation or effusion..
[2018-02-25 23:41] LABS: Mean Corpuscular HGB Conc 30 % (32-34); Mean Corpuscular Hemoglobin 29 pg (28-32); Mean Corpuscular Volume 95 fl (84-94); Platelet Count 384 K/mm3 (140-440); Red Blood Count 3.56 M/mm3 (3.65-5.03); Red Cell Distribution Width 17.7 % (13.2-15.2)
[2018-02-25] MEDS ORDERED: NACL 0.9% 1000 ML 1,500 ML IV ONE (23:42)
[2018-02-25] MEDS ORDERED: VANCOMYCIN/NS 1 GM/250 ML 1 GM/250 ML BAG IV SCH (23:45)
[2018-02-25] MEDS ORDERED: VANCOMYCIN PHARMACY TO DOSE IV SCH (23:45)
[2018-02-25] MEDS ORDERED: ASPIRIN PR ONE (23:48)
--- NOTE | 2018-02-25 23:48 | Emergency Department Report ---
HPI - General Chief Complaint: Fever Time Seen by Provider: 02/25/18 22:51 - HPI HPI: The patient is a 72-year-old male with a history of CVA, hemiplegia, Alzheimer's , noncommunicative, who presents from half-way for evaluation of decreasing baseline activity and mental status since 7 PM earlier today, approximately 4 hours prior to arrival, per nursing staff. This medicine EMS and the patient was not acting his normal self and exhibited increased work of breathing. Per EMS the patient was found was seen hypoxic and hypotensive. ED Past Medical Hx - Past Medical History Previous Medical History?: Yes Hx Hypertension: Yes Hx Heart Attack/AMI: No Hx Diabetes: Yes Hx Renal Disease: Yes Hx Sickle Cell Disease: No Hx Seizures: No Hx Kidney Stones: Yes Hx Asthma: No Hx COPD: No Hx Dementia: Yes Hx HIV: No Additional medical history: high cholesterol. ulcers. anemia. Alzheimer's. Dementia - Surgical History Hx Pacemaker: No Hx Internal Defibrillator: No - Social History Smoking Status: Unknown if ever smoked - Medications Home Medications: Home Medications Medication Instructions Recorded Confirmed Last Taken Type Amlodipine Besylate [Norvasc] 10 mg PO DAILY 12/27/17 01/12/18 Unknown History Finasteride [Proscar] 5 mg PO DAILY 12/27/17 01/12/18 Unknown History Apixaban [Eliquis] 5 mg PO BID #60 tablet 01/04/18 01/12/18 Unknown Rx AtorvaSTATin [Lipitor] 80 mg PO QHS #30 tablet 01/04/18 01/12/18 Unknown Rx HYDROcodone/ACETAMINOPHEN [[place] 1 each PO Q6H PRN #10 tablet 01/04/18 01/12/18 Unknown Rx 5-325 Tablet] Metoprolol [Lopressor TAB] 25 mg PO BID #60 tablet 01/04/18 01/12/18 Unknown Rx hydrALAZINE [Apresoline TAB] 50 mg PO Q8HR #30 tablet 01/04/18 01/12/18 Unknown Rx Levofloxacin [Levaquin TAB] 500 mg PO Q24HR #5 tablet 01/14/18 Unknown Rx ED Review of Systems ROS: Stated complaint: AMS Other details as noted in HPI Comment: Unobtainable due to pts medical conditions (non-communicative) Physical Exam - Physical Exam Vital Signs: Vital Signs 02/25/18 02/25/18 22:56 23:29 Pulse Rate 130 H Pulse Rate [ 78 Anterior Bilateral] Respiratory 44 H Rate Respiratory 30 H Rate [Anterior Bilateral] Blood Pressure 65/46 O2 Sat by Pulse 91 Oximetry Physical Exam: General: well-nourished, well-developed Head: Normocephalic, atraumatic Eyes: normal sclera ENT: Mucous membranes are pale and dry Neck: No neck stiffness, no cervical adenopathy Respiratory: Patient tachypnea, with costal retractions,diminished breath sounds , and rhonchi throughout lung [place], in acute respiratory distress Cardio: S1 and S2 present, no murmurs, rubs, gallops, capillary refill is delayed Abdomen: Normoactive bowel sounds, soft abdomen, no rigidity, no guarding or rebound tenderness Musc: No pitting edema Skin: No rash Neuro: Alert, noncommunicative, unable to follow instructions, Psych: Normal affect ED Course Vital Signs 02/25/18 02/25/18 22:56 23:29 Pulse Rate 130 H Pulse Rate [ 78 Anterior Bilateral] Respiratory 44 H Rate Respiratory 30 H Rate [Anterior Bilateral] Blood Pressure 65/46 O2 Sat by Pulse 91 Oximetry - Central Line Placement Right Femoral Consent Obtained: emergent situation Time Out Performed: Yes ([id number]) Patient Placed on Monitor/Pulse Ox: Yes MD Prep: mask, gown, gloves Central Line Prep: Chlorhexidine scrub Local Anesthesia Used: Lidocaine 1% Amount of Anesthesia Used (mls): 5 Ultrasound Used for Placement: Yes Central Line Lumen Inserted: triple Central Line Position: good blood return, all ports aspirated, flus, sutured in place with 2-0 Dressing Applied: Tegaderm Patient Tolerated Procedure: well, no complications ED Medical Decision Making - Lab Data Result diagrams: 02/25/18 23:15 02/25/18 23:15 - Medical Decision Making The patient was seen and examined by myself. The patient is placed on a threat monitoring analyst and continuous pulse ox. On initial evaluation, the patient was found to be in respiratory distress, hypotensive, tachycardic, and febrile, temperature 101F. Code sepsis was called and the patient is given 30 cc/kg normal saline fluid bolus, albuterol breathing treatment, placed on nonrebreather. X-ray of the chest reveals likely left lower lobe pneumonia. The patient is given triple antibiotic coverage of his pneumonia. Extensive bedside monitoring and reevaluation were performed to assess hypotension responsiveness to fluids resuscitation, in respiratory distress responsiveness to breathing treatments. Lab results revealed low PO2 of 69 on ABG, and leukocytosis 12, elevated lactic acid 7, and elevated creatinine of 5.2. The patient is reevaluated and found to remain hypotensive despite 4 L normal saline fluid bolus. The patient is started on a Levophed drip and a right femoral central line was placed by myself. Dr. Chowdhury the physician on-call for the hospital service was contacted. He agreed to admit the patient for further treatment and close monitoring. The ED admit order was placed. The patient was admitted in critical condition. Critical Care Time: Yes Critical care time in (mins) excluding proc time.: 65 Critical care attestation.: Due to the critical nature of this patients presentation, which necessitated multiple bedside assessments, manipulation and supportive measures to prevent further life threatening deterioration, I would like to bill for a total of 65 minutes of critical care time. This was exclusive of any separately billable procedures. Critical Care Time: 65 min ED Disposition Clinical Impression: Septic shock, Acute hypoxemic respiratory failure, Dehydration, severe Pneumonia Qualifiers: Pneumonia type: due to unspecified organism Laterality: left Lung location: lower lobe of lung Qualified Code(s): J18.1 - Lobar pneumonia, unspecified organism Acute on chronic renal failure Qualifiers: Acute renal failure type: unspecified Chronic kidney disease stage: unspecified stage Qualified Code(s): N17.9 - Acute kidney failure, unspecified Disposition: 09 OP ADMIT IP TO THIS HOSP Is pt being admited?: Yes Does the pt Need Aspirin: Yes Condition: Critical Instructions: Bacterial Pneumonia (ED) Referrals: FARA BROWNLEE MD [Primary Care Provider] - 3-5 Days Time of Disposition: 23:45
[2018-02-25 23:51] LABS: INR 1.63 (0.87-1.13)
[2018-02-25 23:55] LABS: Albumin 2.7 g/dL (3.9-5)
[2018-02-25 23:57] LABS: Hematocrit 33.7 % (35.5-45.6); Hemoglobin 10.2 gm/dl (11.8-15.2)
[2018-02-26] MEDS ORDERED: VANCOMYCIN 1,250 MG in NACL 0.9% 250ML 250 ML IV ONE (00:15)
[2018-02-26] MEDS: ZOSYN/NS 2.25 GM/50ML 2.25 GM/50 ML BAG IV SCH ×4 (00:47→23:20)
[2018-02-26 01:17] LABS: Amorphous Crystals,Urine 3+; Bilirubin,Urine NEG (Negative); Blood,Urine NEG (Negative); Color,Urine Amber (Yellow); Hyaline Casts,Urine 4 /LPF; Mucus,Urine FEW /HPF; Protein,Urine <15 mg/dL mg/dL (Negative)
[2018-02-26] MEDS: LEVOPHED DRIP 4 MG/NS 250 ML 4 MG/250 ML BAG IV ONE ×2 (01:31→06:55)
[2018-02-26 02:19] LABS: Band Neutrophils # (Manual) 5.4 K/mm3; Basophils % (Manual) 0 % (0.0-1.8); Eosinophils % (Manual) 0 % (0.0-4.3); Total Cells Counted 100
[2018-02-26 02:20] LABS: Anisocytosis Few; Hypochromasia Few
[2018-02-26] MEDS ORDERED: KETAMINE HCL IV ONE ×2 (04:08→11:03)
--- NOTE | 2018-02-26 04:37 | Emergency Department Report ---
Blank Doc - Documentation Documentation: Procedure note, endotracheal intubation, delayed sequence 0425 hrs. Asked by hospitalist, Dr. Chowdhury, to evaluate patient for endotracheal intubation due to increased work of breathing, and likelihood of ventilatory failure. On my examination, patient is breathing approximately 30 times for a minute, exhibited significant work effort, despite assist with BiPAP breathing. Although patient has adequate oxygen saturation on this examination, it is clear that he is inevitably going to use suffer respiratory failure due to muscular fatigue and ventilatory failure. I concur with recommendation for endotracheal intubation. Patient was placed in semi-upright position, at approximately 30 of elevation of bed him up BiPAP was continued, and nurse rehab care assistant and respiratory therapists were available for support during procedure. Patient given initial sedation with 100 mg of ketamine, and on quick look after ketamine, larynx and vocal cords could be easily visualized, and patient was intubated directly with #7.5 mm cuffed endotracheal tube, with direct visualization of the cords, at 24 cm, but with some decrease in breath sounds on the left, tube was pulled back to 22 cm, but patient still had decreased breath sounds, but is also productive of significant amounts of respiratory secretions, and although ventilations could be heard, I suspect patient has significant accumulation of respiratory secretions, or possible aspiration 11 field. No sounds could be heard on auscultation of the stomach, PEG tube was in place, some soft and flat, and no gurgling was heard with ventilations during that sound. Postprocedure chest x-ray was ordered, and confirmation in meantime by auscultation and color change by capnometry was confirmed initially. X-ray shows good placement of endotracheal tube 4 cm above the jose luis, and there is no acute pulmonary process identified in either lung field.
[2018-02-26] MEDS ORDERED: LEVOPHED DRIP 4 MG/NS 250 ML 4 MG/250 ML BAG IV ONE (04:47)
--- NOTE | 2018-02-26 04:52 | XRay Report ---
FINAL REPORT PROCEDURE: XR CHEST 1V AP TECHNIQUE: Chest radiograph anteroposterior view. CPT 10719 HISTORY: tube placement, endotracheal COMPARISON: 04/27/2018 FINDINGS: Heart: Normal. Mediastinum/Vessels: Normal. Lungs/Pleural space: Slight vascular congestion. No consolidation, effusion or pneumothorax. Bony thorax: No acute osseous abnormality. Life support devices: The endotracheal tube ends 4 centimeters above the jose luis. IMPRESSION: Slight vascular congestion is again noted. Endotracheal tube is properly positioned..
--- NOTE | 2018-02-26 06:15 | History and Physical Report ---
History of Present Illness Date of examination: 02/26/18 Date of admission: 02/26/18 01:43 Chief complaint: Chief complaint: Increasing shortness of breath for 1 day. High fever of 103F History of present illness: [place]: 72-year-old male with history of cerebrovascular accident hemiplegia. Alzheimer's and nonverbal from [facility] sent for altered mental state. Since yesterday and high fever and increasing shortness of breath and respiratory distress. Patient's temperature was 103.2F in the initial evaluation in the emergency room. Patient was also severely tachypneic with respiratory rate of 40. Sudden onset. No exacerbating or relieving factors. Patient is a resident of [facility]. Past Medical History Previous Medical History?: Yes Hx Hypertension: Yes Hx Diabetes: Yes Hx Renal Disease: Yes Hx Kidney Stones: Yes Hx CVA Hx Asthma: No Hx COPD: No Hx Dementia: Yes Additional medical history: high cholesterol. ulcers. anemia. Alzheimer's. Dementia - Surgical History Hx Pacemaker: No Hx Internal Defibrillator: No - Social History Smoking Status: Unknown if ever smoked Family history Unavailable - Medications Home Medications: Home Medications Medication Instructions Recorded Confirmed Last Taken Type Amlodipine Besylate [Norvasc] 10 mg PO DAILY 12/27/17 01/12/18 Unknown History Finasteride [Proscar] 5 mg PO DAILY 12/27/17 01/12/18 Unknown History Apixaban [Eliquis] 5 mg PO BID #60 tablet 01/04/18 01/12/18 Unknown Rx AtorvaSTATin [Lipitor] 80 mg PO QHS #30 tablet 01/04/18 01/12/18 Unknown Rx HYDROcodone/ACETAMINOPHEN [[place] 1 each PO Q6H PRN #10 tablet 01/04/18 01/12/18 Unknown Rx 5-325 Tablet] Metoprolol [Lopressor TAB] 25 mg PO BID #60 tablet 01/04/18 01/12/18 Unknown Rx hydrALAZINE [Apresoline TAB] 50 mg PO Q8HR #30 tablet 01/04/18 01/12/18 Unknown Rx Levofloxacin [Levaquin TAB] 500 mg PO Q24HR #5 tablet 01/14/18 Unknown Rx Review of Systems ROS: Stated complaint: AMS Other details as noted in HPI Patient has high fever and severe respiratory distress Comment: Unobtainable due to pts medical conditions (non-communicative) Medications and Allergies Allergies Allergy/AdvReac Type Severity Reaction Status Date / Time No Known Allergies Allergy Verified 12/26/14 12:14 Home Medications Medication Instructions Recorded Confirmed Last Taken Type Amlodipine Besylate [Norvasc] 10 mg PO DAILY 12/27/17 02/26/18 Unknown History Finasteride [Proscar] 5 mg PO DAILY 12/27/17 02/26/18 Unknown History HYDROcodone/ACETAMINOPHEN [[place] 1 each PO Q6H PRN #10 tablet 01/04/18 02/26/18 Unknown Rx 5-325 Tablet] Metoprolol [Lopressor TAB] 25 mg PO BID #60 tablet 01/04/18 02/26/18 Unknown Rx hydrALAZINE [Apresoline TAB] 50 mg PO Q8HR #30 tablet 01/04/18 02/26/18 Unknown Rx Acetaminophen 650 mg PO Q6H PRN 02/26/18 02/26/18 Unknown History Apixaban [Eliquis] 2.5 mg PO BID 02/26/18 02/26/18 Unknown History Omeprazole Magnesium [PriLOSEC Otc] 20 mg PO QDAY 02/26/18 02/26/18 Unknown History Torsemide [Demadex] 10 mg PO QDAY 02/26/18 02/26/18 Unknown History Active Meds: Active Medications Piperacillin Sod/Tazobactam Sod (Zosyn/Ns 2.25 Gm/50ml) 2.25 gm in 50 mls @ 100 mls/hr IV Q8H [facility] Last Admin: 02/26/18 00:47 Dose: 100 mls/hr Norepinephrine (Levophed Drip 4 Mg/Ns 250 Ml) 4 mg in 250 mls @ 7.5 mls/hr IV TITR ONE; Protocol Stop: 02/27/18 10:21 Last Admin: 02/26/18 01:31 Dose: 4 mcg/min, 15 mls/hr Vancomycin HCl (Vancomycin Pharmacy To Dose) 1 each IV PKCONSULT [facility] Exam - Physical Exam Narrative exam: Patient on BiPAP and severe respiratory distress - Constitutional Vitals: Temp Pulse Resp BP Pulse Ox 99.8 F H 101 H 31 H 97/64 98 02/26/18 02:30 02/26/18 05:30 02/26/18 05:30 02/26/18 05:30 02/26/18 05:30 General appearance: Present: no acute distress, severe distress, well-nourished - EENT Eyes: Present: PERRL ENT: hearing intact, clear oral mucosa - Neck Neck: Present: supple, normal ROM - Respiratory Respiratory effort: normal Respiratory: bilateral: rales, rhonchi - Cardiovascular Heart rate: 100 Rhythm: regular Heart Sounds: Present: S1 & S2. Absent: rub, click - Extremities Extremities: no ischemia, pulses intact, pulses symmetrical, No edema Peripheral Pulses: within normal limits - Abdominal General gastrointestinal: Present: soft, non-tender, non-distended, normal bowel sounds Male genitourinary: Present: normal - Rectal Rectal Exam: deferred - Integumentary Integumentary: Present: clear, warm, dry - Musculoskeletal Musculoskeletal: left sided weakness, generalized weakness, other - Psychiatric Psychiatric: other (severely altered sensorium) - Neurologic Neurologic: focal deficits, other (severely altered sensorium and nearly unresponsive) Results - Labs CBC & Chem 7: 02/25/18 23:15 02/25/18 23:15 Labs: Laboratory Last Values WBC 12.3 K/mm3 (4.5-11.0) H 02/25/18 23:15 RBC 3.56 M/mm3 (3.65-5.03) L 02/25/18 23:15 Hgb 10.2 gm/dl (11.8-15.2) L 02/25/18 23:15 Hct 33.7 % (35.5-45.6) L 02/25/18 23:15 MCV 95 fl (84-94) H 02/25/18 23:15 MCH 29 pg (28-32) 02/25/18 23:15 MCHC 30 % (32-34) L 02/25/18 23:15 RDW 17.7 % (13.2-15.2) H 02/25/18 23:15 Plt Count 384 K/mm3 (140-440) 02/25/18 23:15 Add Manual Diff Complete 02/25/18 23:15 Total Counted 100 02/25/18 23:15 Seg Neuts % (Manual) 35.0 % (40.0-70.0) L 02/25/18 23:15 Band Neutrophils % 44.0 % 02/25/18 23:15 Lymphocytes % (Manual) 13.0 % (13.4-35.0) L 02/25/18 23:15 Reactive Lymphs % (Man) 0 % 02/25/18 23:15 Monocytes % (Manual) 8.0 % (0.0-7.3) H 02/25/18 23:15 Eosinophils % (Manual) 0 % (0.0-4.3) 02/25/18 23:15 Basophils % (Manual) 0 % (0.0-1.8) 02/25/18 23:15 Metamyelocytes % 0 % 02/25/18 23:15 Myelocytes % 0 % 02/25/18 23:15 Promyelocytes % 0 % 02/25/18 23:15 Blast Cells % 0 % 02/25/18 23:15 Nucleated RBC % Not Reportable 02/25/18 23:15 Seg Neutrophils # Man 4.3 K/mm3 (1.8-7.7) 02/25/18 23:15 Band Neutrophils # 5.4 K/mm3 02/25/18 23:15 Lymphocytes # (Manual) 1.6 K/mm3 (1.2-5.4) 02/25/18 23:15 Abs React Lymphs (Man) 0.0 K/mm3 02/25/18 23:15 Monocytes # (Manual) 1.0 K/mm3 (0.0-0.8) H 02/25/18 23:15 Eosinophils # (Manual) 0.0 K/mm3 (0.0-0.4) 02/25/18 23:15 Basophils # (Manual) 0.0 K/mm3 (0.0-0.1) 02/25/18 23:15 Metamyelocytes # 0.0 K/mm3 02/25/18 23:15 Myelocytes # 0.0 K/mm3 02/25/18 23:15 Promyelocytes # 0.0 K/mm3 02/25/18 23:15 Blast Cells # 0.0 K/mm3 02/25/18 23:15 WBC Morphology Not Reportable 02/25/18 23:15 Hypersegmented Neuts Not Reportable 02/25/18 23:15 Hyposegmented Neuts Not Reportable 02/25/18 23:15 Hypogranular Neuts Not Reportable 02/25/18 23:15 Smudge Cells Not Reportable 02/25/18 23:15 Toxic Granulation Not Reportable 02/25/18 23:15 Toxic Vacuolation Not Reportable 02/25/18 23:15 Dohle Bodies Not Reportable 02/25/18 23:15 Pelger-Huet Anomaly Not Reportable 02/25/18 23:15 Erwin Rods Not Reportable 02/25/18 23:15 Platelet Estimate Appears normal 02/25/18 23:15 Clumped Platelets Not Reportable 02/25/18 23:15 Plt Clumps, EDTA Not Reportable 02/25/18 23:15 Large Platelets Not Reportable 02/25/18 23:15 Giant Platelets Not Reportable 02/25/18 23:15 Platelet Satelliting Not Reportable 02/25/18 23:15 Plt Morphology Comment Not Reportable 02/25/18 23:15 RBC Morphology Not Reportable 02/25/18 23:15 Dimorphic RBCs Not Reportable 02/25/18 23:15 Polychromasia Not Reportable 02/25/18 23:15 Hypochromasia Few 02/25/18 23:15 Poikilocytosis Not Reportable 02/25/18 23:15 Anisocytosis Few 02/25/18 23:15 Microcytosis Not Reportable 02/25/18 23:15 Macrocytosis Not Reportable 02/25/18 23:15 Spherocytes Not Reportable 02/25/18 23:15 Pappenheimer Bodies Not Reportable 02/25/18 23:15 Sickle Cells Not Reportable 02/25/18 23:15 Target Cells Not Reportable 02/25/18 23:15 Tear Drop Cells Not Reportable 02/25/18 23:15 Ovalocytes Not Reportable 02/25/18 23:15 Helmet Cells Not Reportable 02/25/18 23:15 Chase-[place]ron Bodies Not Reportable 02/25/18 23:15 [place] Rings Not Reportable 02/25/18 23:15 Lyle Cells Not Reportable 02/25/18 23:15 Bite Cells Not Reportable 02/25/18 23:15 Crenated Cell Not Reportable 02/25/18 23:15 Elliptocytes Not Reportable 02/25/18 23:15 Acanthocytes (Spur) Not Reportable 02/25/18 23:15 Rouleaux Not Reportable 02/25/18 23:15 Hemoglobin C Crystals Not Reportable 02/25/18 23:15 Schistocytes Not Reportable 02/25/18 23:15 Malaria parasites Not Reportable 02/25/18 23:15 Aric Bodies Not Reportable 02/25/18 23:15 Hem Pathologist Commnt No 02/25/18 23:15 PT 20.3 Sec. (12.2-14.9) H 02/25/18 23:15 INR 1.63 (0.87-1.13) H 02/25/18 23:15 POC ABG pH 7.379 (7.35-7.45) 02/26/18 05:43 POC ABG pCO2 19.5 (35-45) L 02/26/18 05:43 POC ABG pO2 72 (80-105) L 02/26/18 05:43 POC ABG HCO3 11.5 02/26/18 05:43 POC ABG Total CO2 12 02/26/18 05:43 POC ABG O2 Sat 94 02/26/18 05:43 POC ABG Base Excess -14 02/26/18 05:43 VBG pH 7.406 (7.320-7.420) 02/25/18 23:15 FiO2 85 % 02/26/18 05:43 Sodium 152 mmol/L (137-145) H 02/25/18 23:15 Potassium 4.7 mmol/L (3.6-5.0) 02/25/18 23:15 Chloride 108.7 mmol/L (98-107) H 02/25/18 23:15 Carbon Dioxide 18 mmol/L (22-30) L 02/25/18 23:15 Anion Gap 30 mmol/L 02/25/18 23:15 BUN 136 mg/dL (9-20) H 02/25/18 23:15 Creatinine 5.2 mg/dL (0.8-1.5) H 02/25/18 23:15 Estimated GFR 13 ml/min 02/25/18 23:15 BUN/Creatinine Ratio 26 % 02/25/18 23:15 Glucose 87 mg/dL (75-100) 02/25/18 23:15 Lactic Acid 9.70 mmol/L (0.7-2.0) H* 02/26/18 03:06 Calcium 8.0 mg/dL (8.4-10.2) L 02/25/18 23:15 Total Bilirubin 4.50 mg/dL (0.1-1.2) H 02/25/18 23:15 AST 83 units/L (5-40) H 02/25/18 23:15 ALT 48 units/L (7-56) 02/25/18 23:15 Alkaline Phosphatase 117 units/L (35-129) 02/25/18 23:15 Total Protein 6.4 g/dL (6.3-8.2) 02/25/18 23:15 Albumin 2.7 g/dL (3.9-5) L 02/25/18 23:15 Albumin/Globulin Ratio 0.7 % 02/25/18 23:15 Lipase 35 units/L (13-60) 02/26/18 02:58 TSH 2.670 mlU/mL (0.270-4.200) 02/26/18 00:10 Free T4 1.26 ng/dL (0.76-1.46) 02/26/18 00:10 Urine Color [place]ley (Yellow) 02/26/18 00:32 Urine Turbidity Hazy (Clear) 02/26/18 00:32 Urine pH 5.0 (5.0-7.0) 02/26/18 00:32 Ur Specific [place] 1.015 (1.003-1.030) 02/26/18 00:32 Urine Protein <15 mg/dl mg/dL (Negative) 02/26/18 00:32 Urine Glucose (UA) Neg mg/dL (Negative) 02/26/18 00:32 Urine Ketones Neg mg/dL (Negative) 02/26/18 00:32 Urine Blood Neg (Negative) 02/26/18 00:32 Urine Nitrite Neg (Negative) 02/26/18 00:32 Urine Bilirubin Neg (Negative) 02/26/18 00:32 Urine Urobilinogen 4.0 mg/dL (<2.0) 02/26/18 00:32 Ur Leukocyte Esterase Neg (Negative) 02/26/18 00:32 Urine WBC (Auto) 1.0 /HPF (0.0-6.0) 02/26/18 00:32 Urine RBC (Auto) 1.0 /HPF (0.0-6.0) 02/26/18 00:32 U Epithel Cells (Auto) 1.0 /HPF (0-13.0) 02/26/18 00:32 Amorphous Crystals 3+ 02/26/18 00:32 Hyaline Casts 4 /LPF 02/26/18 00:32 Urine Mucus Few /HPF 02/26/18 00:32 - Imaging and Cardiology EKG: report reviewed (sinus tachycardia) Chest x-ray: report reviewed (mild vascular congestion and no infiltrates) Assessment and Plan Assessment and plan: The high probability of a clinically significant, sudden or life threatening deterioration of the [Pulmonary, cadiac, renal] system(s) required my full and direct attention, intervention and personal management. The aggregate critical care time was [45] minutes. This time is in addition to time spent performing reported procedures but includes the following: [x] Data Review and interpretation [x] Patient assessment and monitoring of vital signs [x] Documentation [x] Medication orders and management Advance Directives: Yes (full code) VTE prophylaxis?: Chemical Plan of care discussed with patient/family: Yes - Patient Problems (1) Septic shock Current Visit: Yes Status: Acute Plan to address problem: Patient is a heart rate in the 120s and low blood pressure of 86/50 and high lactic acid and high-grade fever consistent with sepsis and septic shock. IV Zosyn and vancomycin initiated Prognosis poor DO NOT RESUSCITATE to be discussed with the family No family was available We will defer to the hospitalist team (2) Acute hypoxemic respiratory failure Current Visit: Yes Status: Acute Plan to address problem: Patient very tachypneic No infiltrates Probably underlying pneumonia Patient to be intubated because the patient is very tachypneic and increased work of breathing. Requested ER physician Dr. Cosme to intubate. He agreed to intubate. Broad-spectrum IV antibiotics Nebulizer treatments IV [employer] Nurse consult (3) Acute encephalopathy Current Visit: No Status: Acute Plan to address problem: Secondary to sepsis (4) Acute on chronic renal failure Current Visit: Yes Status: Acute Qualifiers: Acute renal failure type: unspecified Chronic kidney disease stage: unspecified stage Qualified Code(s): N17.9 - Acute kidney failure, unspecified ; N18.9 - Chronic kidney disease, unspecified Plan to address problem: IV fluids for now Nephrology consulted (5) Dehydration, severe Current Visit: Yes Status: Acute Plan to address problem: IV fluids for now (6) Sepsis Current Visit: Yes Status: Acute Qualifiers: Sepsis type: sepsis due to unspecified organism Qualified Code(s): A41.9 - Sepsis, unspecified organism Plan to address problem: Elevated blood cultures IV Zosyn and vancomycin (7) Hypertension Current Visit: Yes Status: Chronic Qualifiers: Hypertension type: essential hypertension Qualified Code(s): I10 - Essential (primary) hypertension Plan to address problem: We will hold antihypertensives because of the hypotension (8) BPH (benign prostatic hyperplasia) Current Visit: Yes Status: Chronic Qualifiers: Lower urinary tract symptom presence: symptoms present Plan to address problem: Continue finasteride (9) Hyperlipidemia Current Visit: Yes Status: Chronic Qualifiers: Hyperlipidemia type: mixed hyperlipidemia Qualified Code(s): E78.2 - Mixed hyperlipidemia Plan to address problem: Hold statins for now (10) DVT prophylaxis Current Visit: No Status: Acute Plan to address problem: Heparin 5000 subcutaneous every 12
[2018-02-26] MEDS ORDERED: PANCREAZE DR 10,500 UNIT FEEDTUBE PRN ×2 (06:38→11:06)
[2018-02-26] MEDS ORDERED: MORPHINE IV PRN (06:38)
[2018-02-26] MEDS ORDERED: PHENERGAN PR PRN (06:38)
[2018-02-26] MEDS ORDERED: SIMPLE SYRUP FEEDTUBE PRN ×4 (06:38→11:06)
[2018-02-26] MEDS ORDERED: TYLENOL PR PRN (06:38)
[2018-02-26] MEDS ORDERED: SODIUM BICARBONATE FEEDTUBE PRN ×2 (06:38→11:06)
[2018-02-26] MEDS ORDERED: VASELINE LIP THERAPY TP PRN (06:58)
[2018-02-26] MEDS ORDERED: D5/0.45NS 1,000 ML IV SCH (07:00)
[2018-02-26] MEDS ORDERED: DIPRIVAN 10 MG/ML 1,000 MG/100 ML BOTTLE IV SCH (07:00)
[2018-02-26] MEDS ORDERED: NACL 0.9% 500 ML IV SCH (07:00)
[2018-02-26] MEDS ORDERED: fentaNYL DRIP Premix 2,000 MCG/100 ML BAG IV ONE (07:34)
[2018-02-26] MEDS: fentaNYL DRIP Premix 2,000 MCG/100 ML BAG IV SCH ×2 (07:59→22:49)
[2018-02-26 08:09] LABS: Mean Corpuscular HGB Conc 30 % (32-34); Mean Corpuscular Hemoglobin 29 pg (28-32); Mean Corpuscular Volume 95 fl (84-94); Platelet Count 353 K/mm3 (140-440); Red Blood Count 3.27 M/mm3 (3.65-5.03); Red Cell Distribution Width 17.4 % (13.2-15.2)
[2018-02-26 08:24] LABS: Albumin 2.4 g/dL (3.9-5); Calcium 7.7 mg/dL (8.4-10.2)
[2018-02-26 08:30] LABS: Hemoglobin 9.3 gm/dl (11.8-15.2)
[2018-02-26 08:31] LABS: Hematocrit 31.1 % (35.5-45.6)
--- NOTE | 2018-02-26 08:57 | Consultation ---
History of Present Illness - Reason for Consult Consult date: 02/26/18 acute renal failure - History of Present Illness Obtained from medical record as patient is intubated. The patient is a 72-year-old male with a history of CVA, hemiplegia, Alzheimer's , noncommunicative, who presents from intermediate for evaluation of decreasing baseline activity and mental status. Patient was not acting his normal self and exhibited increased work of breathing. Per EMS the patient was found was seen hypoxic and hypotensive. Medications and Allergies Allergies Allergy/AdvReac Type Severity Reaction Status Date / Time No Known Allergies Allergy Verified 12/26/14 12:14 Home Medications Medication Instructions Recorded Confirmed Last Taken Type Amlodipine Besylate [Norvasc] 10 mg PO DAILY 12/27/17 02/26/18 Unknown History Finasteride [Proscar] 5 mg PO DAILY 12/27/17 02/26/18 Unknown History HYDROcodone/ACETAMINOPHEN [[facility] 1 each PO Q6H PRN #10 tablet 01/04/18 02/26/18 Unknown Rx 5-325 Tablet] Metoprolol [Lopressor TAB] 25 mg PO BID #60 tablet 01/04/18 02/26/18 Unknown Rx hydrALAZINE [Apresoline TAB] 50 mg PO Q8HR #30 tablet 01/04/18 02/26/18 Unknown Rx Acetaminophen 650 mg PO Q6H PRN 02/26/18 02/26/18 Unknown History Apixaban [Eliquis] 2.5 mg PO BID 02/26/18 02/26/18 Unknown History Omeprazole Magnesium [PriLOSEC Otc] 20 mg PO QDAY 02/26/18 02/26/18 Unknown History Torsemide [Demadex] 10 mg PO QDAY 02/26/18 02/26/18 Unknown History Active Meds: Active Medications Acetaminophen (Tylenol) 650 mg IN Q6H PRN PRN Reason: Pain MILD(1-3)/Fever >100.5/GALVIN Acetaminophen (Tylenol) 650 mg FEEDTUBE Q6H PRN PRN Reason: Pain MILD(1-3)/Fever >100.5/GALVIN Lipase/Protease/Amylase (Pancreaze Dr 10,500 Unit) 1 each FEEDTUBE PRN PRN PRN Reason: For Clogged Feeding Tube Famotidine (Pepcid) 20 mg IV BID [facility] Hydrophilic Ointment (Vaseline Lip Therapy) 1 applic TP Q2HR PRN PRN Reason: Dry Lips Piperacillin Sod/Tazobactam Sod (Zosyn/Ns 2.25 Gm/50ml) 2.25 gm in 50 mls @ 100 mls/hr IV Q8H [facility] Last Admin: 02/26/18 08:27 Dose: 100 mls/hr Norepinephrine (Levophed Drip 4 Mg/Ns 250 Ml) 4 mg in 250 mls @ 7.5 mls/hr IV TITR ONE; Protocol Stop: 02/27/18 10:21 Last Admin: 02/26/18 06:55 Dose: 4 mcg/min, 15 mls/hr Dextrose/Sodium Chloride (D5/0.45ns) 1,000 mls @ 125 mls/hr IV DIRECT [facility] Last Admin: 02/26/18 08:44 Dose: 125 mls/hr Fentanyl Citrate (Fentanyl Drip Premix) 2,000 mcg in 100 mls @ 3.402 mls/hr IV TITR [facility]; Protocol Last Admin: 02/26/18 07:59 Dose: 1 mcg/kg/hr, 3.402 mls/hr Propofol (Diprivan 10 Mg/Ml) 1,000 mg in 100 mls @ 2.041 mls/hr IV TITR [facility]; Protocol Morphine Sulfate (Morphine) 2 mg IV Q4H PRN PRN Reason: Pain, Moderate (4-6) Multi-Ingred Cream/Lotion/Oil/Oint (Artificial Tears Ophth Oint) 1 applic OU Q4HR PRN PRN Reason: Dry Eye(s) Promethazine HCl (Phenergan) 25 mg IN Q6H PRN PRN Reason: N/V IF NPO AND NO IV ACCESS Simple Syrup (Simple Syrup) 15 ml FEEDTUBE PRN PRN PRN Reason: Hypoglycemia Simple Syrup (Simple Syrup) 30 ml FEEDTUBE PRN PRN PRN Reason: Hypoglycemia Sodium Bicarbonate (Sodium Bicarbonate) 325 mg FEEDTUBE PRN PRN PRN Reason: For Clogged Feeding Tube Sodium Chloride (Sodium Chloride Flush Syringe 10 Ml) 10 ml IV BID [facility] Sodium Chloride (Sodium Chloride Flush Syringe 10 Ml) 10 ml IV PRN PRN PRN Reason: LINE FLUSH Sodium Chloride (Nacl 0.9% 500 Ml) 1 ml IV DIRECT D[facility] Vancomycin HCl (Vancomycin Pharmacy To Dose) 1 each IV PKCONSULT [facility] Review of Systems ROS unobtainable: due to endotracheal tube Exam - Vital Signs Vital signs: Vital Signs Pulse Resp 128 H 16 02/25/18 22:50 02/25/18 22:50 - General Appearance General appearance: intubated EENT: other (ETT in place) Neck: Present: neck supple Respiratory: Other (Coarse breath sounds) Heart: regular, S1S2 Gastrointestinal: Present: normal. Absent: tenderness, distended Integumentary: warm and dry Neurologic: other (sedated on Fentanyl gtt) Musculoskeletal: Present: other (no edema) Results - Lab Results 02/26/18 07:39 02/26/18 07:39 Most recent lab results Calcium 7.7 mg/dL (8.4-10.2) L 02/26/18 07:39 Assessment and Plan Impression: * Acute kidney injury secondary to prerenal azotemia/ATN due to dehydration vs sepsis * Acute hypoxic respiratory failure * Sepsis * HCAP * Hypernatremia secondary to dehydration * Metabolic acidosis secondary to lactic acidosis Plan: * Renal prognosis is guarded - no acute indication for dialysis today * Continue IVF will change to D5 1/4NS - continue 125ml/hour * Start NaBicarb per NGT * Will obtain urine studies * No serologic work up at this time - suspicion for vasculitis is unlikely as patient w/ minimal proteinuria and w/o microscopic hematuria * Vent management per [facility] * Broad spectrum abx * Dose medications for renal function * Avoid potential nephrotoxins
[2018-02-26 09:58] LABS: Band Neutrophils # (Manual) 2.1 K/mm3; Basophils % (Manual) 0 % (0.0-1.8); Eosinophils % (Manual) 0 % (0.0-4.3); Myelocytes # (Manual) 0.5 K/mm3; Total Cells Counted 100
[2018-02-26 09:59] LABS: Burr Cells Rare; Platelet Estimate Consistent w Auto; Tear Drop Cells Rare
[2018-02-26] MEDS: PEPCID IV SCH ×2 (10:27→22:50)
--- NOTE | 2018-02-26 10:27 | Cat Scan Report ---
CT CHEST, ABDOMEN AND PELVIS WITHOUT CONTRAST: 02/26/18 01:43:00 CLINICAL: Fever and dyspnea. COMPARISON: CT abdomen and pelvis without contrast 01/12/18 TECHNIQUE: Volumetric acquisition and 1.25 millimeter scan reconstructions without contrast. Oral contrast was not given. FINDINGS: Chest: Patchy and confluent air space disease involving the upper lobes, lingula and bilateral lower lobes. Bilateral lower lobe volume loss. No pleural effusion. No mass or lymphadenopathy. A 7 mm right lower lobe calcified granuloma. An endotracheal tube is in satisfactory position. Cardiomegaly and coronary artery calcifications. Extensive atherosclerotic disease aorta with aortic calcifications and ectasia. Normal esophagus. Abdomen: Normal liver size and overall density. A few benign hepatic calcifications. The gallbladder is distended and tiny calculi layer dependently in the gallbladder. No gallbladder wall thickening or pericholecystic fluid. Bile ducts are normal. Mild fatty infiltration of the pancreas and otherwise normal pancreas. The stomach is normal with a gastrostomy tube. Small bowel is normal. The appendix is normal. The colon is normal except for mild diverticulosis of the distal descending colon and sigmoid colon. No mass or lymphadenopathy.No ascites and no pneumoperitoneum. Extensive calcification of the abdominal aorta and iliac arteries. No abdominal aortic aneurysm. The adrenal glands are normal. Small bilateral renal cysts. Renal collecting systems and ureters are nondilated. A 5 mm nonobstructive calculus in the lower midportion of the left kidney. Pelvis: Absence of the uterus a normal vaginal cuff. Normal urinary bladder. The rectum is greatly distended with stool. Mild sigmoid diverticulosis but no diverticulitis. Ovaries are not identified. No adnexal mass or free fluid. Bone windows demonstrate no suspicious bone lesion. IMPRESSION:1. Multilobar pneumonia involving bilateral upper lobes and lower lobes. 2. Bilateral lower lobe atelectasis. 3. Cholelithiasis but no signs of acute cholecystitis. 4. A 5 mm nonobstructive left renal calculus. 5. No signs of pyelonephritis or pyonephrosis.
[2018-02-26] MEDS: SODIUM CHLORIDE FLUSH SYRINGE 10 ML IV SCH ×2 (10:28→22:50)
[2018-02-26] MEDS ORDERED: ZEMURON IV ONE (11:03)
[2018-02-26] MEDS: SODIUM BICARBONATE FEEDTUBE SCH ×2 (13:59→20:00)
[2018-02-26 14:09] LABS: Creatinine,Urine 38.6 mg/dL (0.1-20.0)
[2018-02-26] MEDS: ARTIFICIAL TEARS OPHTH OINT OU PRN (14:48)
[2018-02-26] MEDS: D5NS 0.2% 1,000 ML IV SCH ×2 (16:05→23:20)
--- NOTE | 2018-02-26 16:25 | Consultation ---
History of Present Illness Consult date: 02/26/18 Requesting physician: ROSIBEL ACOSTA Reason for consult: other (Acute HypoxemicResp Failure on MVS; Sepsis Syndrome) History of present illness: PULMONARY/CCM CONSULT NOTE (full dictation # [id number]) Please see dictated notes for full details Medications and Allergies Allergies Allergy/AdvReac Type Severity Reaction Status Date / Time No Known Allergies Allergy Verified 12/26/14 12:14 Home Medications Medication Instructions Recorded Confirmed Last Taken Type Amlodipine Besylate [Norvasc] 10 mg PO DAILY 12/27/17 02/26/18 Unknown History Finasteride [Proscar] 5 mg PO DAILY 12/27/17 02/26/18 Unknown History HYDROcodone/ACETAMINOPHEN [[place] 1 each PO Q6H PRN #10 tablet 01/04/18 02/26/18 Unknown Rx 5-325 Tablet] Metoprolol [Lopressor TAB] 25 mg PO BID #60 tablet 01/04/18 02/26/18 Unknown Rx hydrALAZINE [Apresoline TAB] 50 mg PO Q8HR #30 tablet 01/04/18 02/26/18 Unknown Rx Acetaminophen 650 mg PO Q6H PRN 02/26/18 02/26/18 Unknown History Apixaban [Eliquis] 2.5 mg PO BID 02/26/18 02/26/18 Unknown History Omeprazole Magnesium [PriLOSEC Otc] 20 mg PO QDAY 02/26/18 02/26/18 Unknown History Torsemide [Demadex] 10 mg PO QDAY 02/26/18 02/26/18 Unknown History Active Meds: Active Medications Acetaminophen (Tylenol) 650 mg ID Q6H PRN PRN Reason: Pain MILD(1-3)/Fever >100.5/GALVIN Acetaminophen (Tylenol) 650 mg FEEDTUBE Q6H PRN PRN Reason: Pain MILD(1-3)/Fever >100.5/GALVIN Lipase/Protease/Amylase (Pancreyeny Pitt[place] 10,500 Unit) 1 each FEEDTUBE PRN PRN PRN Reason: For Clogged Feeding Tube Famotidine (Pepcid) 20 mg IV BID DERREK Last Admin: 02/26/18 10:27 Dose: 20 mg Hydrophilic Ointment (Vaseline Lip Therapy) 1 applic TP Q2HR PRN PRN Reason: Dry Lips Last Admin: 02/26/18 16:05 Dose: 1 applic Piperacillin Sod/Tazobactam Sod (Zosyn/Ns 2.25 Gm/50ml) 2.25 gm in 50 mls @ 100 mls/hr IV Q8H DERREK Last Admin: 02/26/18 15:43 Dose: 100 mls/hr Norepinephrine (Levophed Drip 4 Mg/Ns 250 Ml) 4 mg in 250 mls @ 7.5 mls/hr IV TITR ONE; Protocol Stop: 02/27/18 10:21 Last Titration: 02/26/18 15:33 Dose: 6 mcg/min, 22.5 mls/hr Fentanyl Citrate (Fentanyl Drip Premix) 2,000 mcg in 100 mls @ 3.402 mls/hr IV TITR DERREK; Protocol Last Admin: 02/26/18 07:59 Dose: 1 mcg/kg/hr, 3.402 mls/hr Propofol (Diprivan 10 Mg/Ml) 1,000 mg in 100 mls @ 2.041 mls/hr IV TITR DERREK; Protocol Dextrose/Sodium Chloride (D5ns 0.2%) 1,000 mls @ 125 mls/hr IV DIRECT DERREK Last Admin: 02/26/18 16:05 Dose: 125 mls/hr Morphine Sulfate (Morphine) 2 mg IV Q4H PRN PRN Reason: Pain, Moderate (4-6) Multi-Ingred Cream/Lotion/Oil/Oint (Artificial Tears Ophth Oint) 1 applic OU Q4HR PRN PRN Reason: Dry Eye(s) Last Admin: 02/26/18 14:48 Dose: 1 applic Promethazine HCl (Phenergan) 25 mg ID Q6H PRN PRN Reason: N/V IF NPO AND NO IV ACCESS Simple Syrup (Simple Syrup) 15 ml FEEDTUBE PRN PRN PRN Reason: Hypoglycemia Simple Syrup (Simple Syrup) 30 ml FEEDTUBE PRN PRN PRN Reason: Hypoglycemia Sodium Bicarbonate (Sodium Bicarbonate) 325 mg FEEDTUBE PRN PRN PRN Reason: For Clogged Feeding Tube Sodium Bicarbonate (Sodium Bicarbonate) 1,300 mg FEEDTUBE TID DERREK Last Admin: 02/26/18 13:59 Dose: 1,300 mg Sodium Chloride (Sodium Chloride Flush Syringe 10 Ml) 10 ml IV BID DERREK Last Admin: 02/26/18 10:28 Dose: 10 ml Sodium Chloride (Sodium Chloride Flush Syringe 10 Ml) 10 ml IV PRN PRN PRN Reason: LINE FLUSH Sodium Chloride (Nacl 0.9% 500 Ml) 1 ml IV DIRECT DERREK Vancomycin HCl (Vancomycin Pharmacy To Dose) 1 each IV PKCONSULT DERREK Physical Examination Vital signs: Vital Signs Pulse Resp 128 H 16 02/25/18 22:50 02/25/18 22:50 Results - Laboratory Findings CBC and BMP: 02/26/18 07:39 02/26/18 07:39 ABG POC ABG pH 7.379 (7.35-7.45) 02/26/18 12:06 POC ABG pCO2 27.8 (35-45) L 02/26/18 12:06 POC ABG pO2 168 (80-105) H 02/26/18 12:06 POC ABG HCO3 16.4 02/26/18 12:06 POC ABG Total CO2 17 02/26/18 12:06 POC ABG O2 Sat 100 02/26/18 12:06 PT/INR, D-dimer PT 20.3 Sec. (12.2-14.9) H 02/25/18 23:15 INR 1.63 (0.87-1.13) H 02/25/18 23:15 Abnormal lab findings: Abnormal Labs 02/25/18 02/25/18 02/25/18 23:15 23:15 23:15 WBC 12.3 H RBC 3.56 L Hgb 10.2 L Hct 33.7 L MCV 95 H MCHC 30 L RDW 17.7 H Seg Neuts % (Manual) 35.0 L Lymphocytes % (Manual) 13.0 L Monocytes % (Manual) 8.0 H Nucleated RBC % Seg Neutrophils # Man Lymphocytes # (Manual) Monocytes # (Manual) 1.0 H PT 20.3 H INR 1.63 H POC ABG pCO2 POC ABG pO2 Sodium 152 H Chloride 108.7 H Carbon Dioxide 18 L BUN 136 H Creatinine 5.2 H Glucose Lactic Acid Calcium 8.0 L Total Bilirubin 4.50 H AST 83 H Albumin 2.7 L Urine Creatinine 02/25/18 02/25/18 02/26/18 23:15 23:30 03:06 WBC RBC Hgb Hct MCV MCHC RDW Seg Neuts % (Manual) Lymphocytes % (Manual) Monocytes % (Manual) Nucleated RBC % Seg Neutrophils # Man Lymphocytes # (Manual) Monocytes # (Manual) PT INR POC ABG pCO2 25.2 L POC ABG pO2 69 L Sodium Chloride Carbon Dioxide BUN Creatinine Glucose Lactic Acid 7.00 H* 9.70 H* Calcium Total Bilirubin AST Albumin Urine Creatinine 02/26/18 02/26/18 02/26/18 05:12 05:43 07:39 WBC 23.7 H RBC 3.27 L Hgb 9.3 L Hct 31.1 L MCV 95 H MCHC 30 L RDW 17.4 H Seg Neuts % (Manual) Lymphocytes % (Manual) 2.0 L Monocytes % (Manual) Nucleated RBC % 1.0 H Seg Neutrophils # Man 16.1 H Lymphocytes # (Manual) 0.5 L Monocytes # (Manual) 1.2 H PT INR POC ABG pCO2 19.5 L POC ABG pO2 72 L Sodium Chloride Carbon Dioxide BUN Creatinine Glucose Lactic Acid 8.80 H* Calcium Total Bilirubin AST Albumin Urine Creatinine 02/26/18 02/26/18 02/26/18 07:39 12:06 13:08 WBC RBC Hgb Hct MCV MCHC RDW Seg Neuts % (Manual) Lymphocytes % (Manual) Monocytes % (Manual) Nucleated RBC % Seg Neutrophils # Man Lymphocytes # (Manual) Monocytes # (Manual) PT INR POC ABG pCO2 27.8 L POC ABG pO2 168 H Sodium 155 H Chloride 114.2 H Carbon Dioxide 14 L BUN 120 H Creatinine 4.6 H Glucose 108 H Lactic Acid Calcium 7.7 L Total Bilirubin 4.50 H AST 105 H Albumin 2.4 L Urine Creatinine 38.6 H
[2018-02-26 21:24] LABS: INR 1.75 (0.87-1.13)
--- NOTE | 2018-02-27 02:51 | XRay Report ---
FINAL REPORT PROCEDURE: XR CHEST 1V AP TECHNIQUE: Chest radiograph anteroposterior view. CPT 42992 HISTORY: follow up respiratory failure COMPARISON: 02/26/2018 FINDINGS: Heart: Normal. Mediastinum/Vessels: Normal. Lungs/Pleural space: Mild vascular congestion is again noted. No consolidation or effusion. No pneumothorax. Bony thorax: No acute osseous abnormality. Life support devices: The endotracheal tube ends 5 centimeters above the jose luis. IMPRESSION: No significant change in mild vascular congestion. The endotracheal tube is properly positioned..
--- NOTE | 2018-02-27 03:15 | Consultation ---
CONSULTING PHYSICIAN: Dr. Chowdhury. REASON FOR CONSULTATION: Acute hypoxemic respiratory failure, on mechanical ventilator support, sepsis syndrome. 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 He also has a history of Alzheimer dementia. He was at [facility] and sent in secondary to acute on chronic encephalopathy according to the nurse. His son mentioned, he had checked on his dad yesterday or the day before presentation and noticed that he was exhibiting some shortness of breath. The patient was brought into the Emergency Room last night. He was severely tachypneic. His respiratory rate is in the 40s, trial of bilevel positive air pressure ventilation therapy was filled, and he ultimately required intubation. Post-intubation, I am asked to stop by and see him. The patient also was running fevers as high as 103 degrees Fahrenheit and was hypotensive. When I stopped by to see him, he was resting on the mechanical ventilator. He was likely sedated. He would open his eyes to name calling. He was on Levophed drip at 6 mcg per minute. I do not have any history of vomiting or overt aspiration. I do not have any history of seizures. The above is as much of the history of presentation as I have. The patient is not a current smoker. Remote tobacco smoking history is unknown. PAST MEDICAL HISTORY: Hypertension, diabetes, chronic kidney disease, nephrolithiasis, cerebrovascular accident, dementia, hyperlipidemia, peptic ulcer disease, and anemia. PAST SURGICAL HISTORY: Status post percutaneous endoscopic gastrostomy tube placement. MEDICATIONS: He was on at the time I stopped by to see him were reviewed. Pertinent medications included the following: Tylenol p.r.n. He was on Levophed drip at 6 mcg per minute. He was on Pepcid 20 mg IV b.i.d., fentanyl drip was going at 1 mcg/kg per hour, morphine 2 mg IV q.4 hours p.r.n. moderate pain, Zosyn 2.25 grams IV q.8 hours, Propofol drip had been going at 5 mcg per kilogram per minute. He was receiving sodium bicarbonate 1300 mg via feeding tube t.i.d., and vancomycin, he received a one-time dose of 1.25 grams. He also received a one-time dose of Levaquin 500 mg IV. ALLERGIES: No known drug allergies. DIET: Thin gentleman, acute weight loss or gain history is unknown. FAMILY AND SOCIAL HISTORY: [facility] patient. No current alcohol, tobacco, or illicit drug use or abuse. Remote history is unknown. REVIEW OF SYSTEMS: Unobtainable secondary to the patient's medical and mental condition. Since he has been here, no gross hematochezia or melena. No gross hematuria, no hematemesis, no bloody tracheal secretions. No witnessed seizures. Review of systems is otherwise unobtainable or as in the body of history above. PHYSICAL EXAMINATION: VITAL SIGNS: At presentation, he had a fever of 103.2 degrees Fahrenheit rectally, pulse 128, respiratory rate 44, blood pressure was 65/46, O2 sats were 91%, inspired oxygen concentration was not recorded. At the time, I stopped by to see him, he was on the mechanical ventilator settings. He was on the assist control mode of ventilation, tidal volumes were 480, PEEP of 7, rate of 18, and I believe his FiO2 was down to 50%. GENERAL: Elderly looking -[place] male. Normocephalic, atraumatic, on the mechanical ventilator with mildly increased work of breathing. HEAD, EYES, EARS, NOSE, AND THROAT: He had scleral icterus. No conjunctival erythema. Endotracheal tube was taped at the lips around 24 cm. Grossly, there were no palpable lymph nodes in the supraclavicular or submandibular lymph node chains. No gross jugular venous distention. LUNGS: Auscultation of both lung davis, bibasilar rhonchi. No wheezing. HEART: Heart sounds 1 and 2 are heard at the time of my evaluation, regular rate and rhythm. No rubs or murmurs. ABDOMEN: Soft, full, bowel sounds are positive, nontender. He had a PEG tube in place. No palpable hepatosplenomegaly. EXTREMITIES: Without overt digital clubbing or cyanosis, no pedal edema. The skin was actually of normal turgor. No cellulitis. No rash that I could see. NEUROLOGIC: The pupils were equal, round, about 4 mm, reactive to light. He had a left-sided paresis. LABORATORY DATA: From my review were as follows: Admission white cell count 12,300, hemoglobin 10.2, hematocrit 33.7, platelets 384. INR was 1.63. Arterial blood gas showed a pH of 7.42, pCO2 of 25, pO2 of 69 at presentation that was on 100% FiO2. Most recent gas showed a pH of 7.38, pO2 of 168 on 85% FiO2 at that time. Serum sodium on admission 152, potassium 4.7, chloride 109, bicarbonate 18, BUN 136, creatinine 5.2, glucose was 87. Lactic acid level was elevated at 7.0. AST 83. Albumin 2.7. TSH is within normal limits. Urinalysis was unremarkable, negative for nitrites and leukocyte esterase. Lactic acid level peaked at 9.7, it is now trending down. Blood cultures, tracheal aspirate no growth to date. Radiographic studies have been reviewed. I have also reviewed the radiologist's interpretation. A CT scan of the abdomen and pelvis was done. Essentially, it showed multilobar pneumonia involving the upper lobes and lower lobes with lower lobe atelectasis. No obvious pyelonephritis or intraabdominal abscess. A chest x-ray shows cardiomegaly, borderline cardiomegaly with bilateral interstitial and alveolar type infiltrates. The film is rotated to the left. Post-intubation chest x-ray shows the ET tube at the lower border of the clavicular heads. Actually, he also did get a CT scan of the chest without contrast. I have reviewed the CT scan and mediastinal window shows no significant mediastinal adenopathy. He has the consolidation and atelectasis of the lower lobes bilaterally, mostly dependent atelectasis. Lung windows reveal bilateral upper lobe infiltrates and significant motion artifact. It is consistent with aspiration in the supine position though. ASSESSMENT: 1. Severe sepsis with septic shock. 2. Aspiration pneumonia, healthcare associated. 3. Acute on chronic encephalopathy. 4. Acute on chronic kidney injury. 5. Anemia. 6. Hypernatremia. 7. Metabolic acidosis. 8. Lactic acidosis. 9. History of hypertension. 10. History of diabetes. 11. History of Alzheimer dementia. PLAN: 1. We will continue full mechanical ventilator support in the short term. His numbers are much better, not consistent with adult respiratory distress syndrome. I will keep his PEEP at 7. Continue to wean FiO2 to keep sats greater than or equal to about 90%. Aspiration precautions will be continued. Ventilator-associated pneumonia bundle will be instituted. We will continue healthcare-associated pneumonia. Empiric coverage. Infectious Disease consultation may be in order. We will continue to trend his lactic acid level. I will get a CRP level. All adjuncts antibiotics de-escalation down the road. Enteral nutrition will be the feeding modality of choice. He is appropriately on GI prophylaxis. I note his INR is elevated and some evidence of shock liver. He will ultimately require DVT prophylaxis. He is currently on D5 NS, I think going at 125 mL per hour. We will continue same. Nephrology evaluation has been instituted. I will defer to them. He will also benefit from some free water for his hypernatremia. I will give him free water through the feeding tube about 250 mL q.6 hours in the short term. Flu and pneumonia vaccination will be addressed per protocol. Thank you very much for the consult Dr. Chowdhury. We will follow along and make further recommendations as picture progresses/becomes clearer. He is critically ill on life-sustaining interventions including mechanical ventilatory support, at high risk for further deterioration including . At this time, I have spent about 40-45 minutes of critical care time without overlap. JOB# [id number] KALEIGH/TINY OVALLE
[2018-02-27 05:52] LABS: Hematocrit 27.5 % (35.5-45.6); Hemoglobin 8.4 gm/dl (11.8-15.2); Mean Corpuscular HGB Conc 31 % (32-34); Mean Corpuscular Hemoglobin 29 pg (28-32); Mean Corpuscular Volume 94 fl (84-94); Platelet Count 274 K/mm3 (140-440); Red Blood Count 2.92 M/mm3 (3.65-5.03); Red Cell Distribution Width 17.1 % (13.2-15.2)
[2018-02-27 06:17] LABS: Calcium 7.8 mg/dL (8.4-10.2)
[2018-02-27 06:51] LABS: Band Neutrophils # (Manual) 0.4 K/mm3; Total Cells Counted 100
[2018-02-27 06:52] LABS: Anisocytosis 1+; Basophils % (Manual) 0 % (0.0-1.8); Burr Cells 1+; Eosinophils % (Manual) 0 % (0.0-4.3); Platelet Estimate Cons; Poikilocytosis 1+
--- NOTE | 2018-02-27 08:37 | Progress Note ---
Assessment and Plan Impression: * Acute kidney injury secondary to prerenal azotemia/ATN due to dehydration vs sepsis * Acute hypoxic respiratory failure * Sepsis * HCAP * Hypernatremia secondary to dehydration * Metabolic acidosis secondary to lactic acidosis Plan: * Renal function improving - no acute indication for dialysis today * Continue D5 1/4NS - 125ml/hour and free water flushes * Continue NaBicarb per NGT * Vent management per CCM * Broad spectrum abx * Dose medications for renal function * Avoid potential nephrotoxins Subjective Date of service: 02/27/18 Interval history: No acute events overnight. Objective - Vital Signs Vital signs: Vital Signs - 12hr 02/26/18 02/26/18 02/26/18 20:46 21:00 21:16 Temperature Pulse Rate 96 H 97 H 98 H Pulse Rate [ From Monitor] Respiratory 16 15 17 Rate Blood Pressure 102/64 105/65 102/63 O2 Sat by Pulse 99 98 99 Oximetry 02/26/18 02/26/18 02/26/18 21:30 22:00 22:17 Temperature 98.3 F Pulse Rate 98 H 94 H Pulse Rate [ From Monitor] Respiratory 16 Rate Blood Pressure 94/61 108/64 O2 Sat by Pulse 98 100 Oximetry 02/26/18 02/26/18 02/26/18 22:20 22:30 22:36 Temperature Pulse Rate 97 H 97 H 97 H Pulse Rate [ From Monitor] Respiratory 17 17 Rate Blood Pressure 102/62 100/65 O2 Sat by Pulse 99 99 Oximetry 02/26/18 02/26/18 02/26/18 22:45 23:00 23:15 Temperature Pulse Rate 96 H 96 H 98 H Pulse Rate [ From Monitor] Respiratory 17 16 16 Rate Blood Pressure 105/62 105/62 108/64 O2 Sat by Pulse 99 99 100 Oximetry 02/26/18 02/26/18 02/26/18 23:30 23:45 23:59 Temperature 97.9 F Pulse Rate 101 H 103 H Pulse Rate [ From Monitor] Respiratory 18 15 Rate Blood Pressure 108/64 84/56 O2 Sat by Pulse 99 99 Oximetry 02/27/18 02/27/18 02/27/18 00:00 00:16 00:30 Temperature Pulse Rate 107 H 83 94 H Pulse Rate [ 92 H From Monitor] Respiratory 19 18 11 L Rate Blood Pressure 93/59 115/63 115/63 O2 Sat by Pulse 99 100 100 Oximetry 06/18/18 06/18/18 06/18/18 00:45 01:00 01:15 Temperature Pulse Rate 94 H 92 H 91 H Pulse Rate [ From Monitor] Respiratory 17 18 16 Rate Blood Pressure 99/60 105/64 96/61 O2 Sat by Pulse 100 99 100 Oximetry 06/18/18 06/18/18 06/18/18 01:30 01:45 02:00 Temperature Pulse Rate 93 H 96 H 101 H Pulse Rate [ From Monitor] Respiratory 17 15 15 Rate Blood Pressure 104/58 97/63 97/63 O2 Sat by Pulse 100 100 99 Oximetry 06/18/18 06/18/18 06/18/18 02:15 02:30 02:45 Temperature Pulse Rate 95 H 95 H 94 H Pulse Rate [ From Monitor] Respiratory 15 16 16 Rate Blood Pressure 98/65 98/65 92/62 O2 Sat by Pulse 100 100 99 Oximetry /18/18 06/18/18 06/18/18 03:00 03:15 03:25 Temperature Pulse Rate 99 H 94 H 95 H Pulse Rate [ From Monitor] Respiratory 15 17 Rate Blood Pressure 88/55 95/62 95/62 O2 Sat by Pulse 99 100 99 Oximetry /18/18 06/18/18 06/18/18 03:30 03:45 04:00 Temperature 98.8 F Pulse Rate 95 H 96 H 94 H Pulse Rate [ 100 H From Monitor] Respiratory 18 18 16 Rate Blood Pressure 100/64 101/63 97/59 O2 Sat by Pulse 100 100 100 Oximetry /18/18 06/18/18 06/18/18 04:15 04:31 04:45 Temperature Pulse Rate 94 H 98 H 97 H Pulse Rate [ From Monitor] Respiratory 15 11 L 11 L Rate Blood Pressure 94/58 94/58 97/63 O2 Sat by Pulse 99 99 100 Oximetry 06/18/18 06/18/18 06/18/18 05:00 05:15 05:30 Temperature Pulse Rate 94 H 93 H 96 H Pulse Rate [ From Monitor] Respiratory 16 21 17 Rate Blood Pressure 99/57 93/64 98/66 O2 Sat by Pulse 100 100 99 Oximetry 06/18/18 06/18/18 06/18/18 05:45 06:00 06:15 Temperature Pulse Rate 92 H 98 H 97 H Pulse Rate [ From Monitor] Respiratory 16 18 15 Rate Blood Pressure 101/66 106/67 99/65 O2 Sat by Pulse 100 99 99 Oximetry 02/27/18 02/27/18 02/27/18 06:30 06:45 07:00 Temperature Pulse Rate 91 H 102 H 104 H Pulse Rate [ From Monitor] Respiratory 16 18 18 Rate Blood Pressure 101/61 101/59 99/63 O2 Sat by Pulse 99 94 94 Oximetry 02/27/18 02/27/18 02/27/18 07:15 07:30 07:58 Temperature 98.7 F Pulse Rate 100 H 110 H Pulse Rate [ From Monitor] Respiratory 17 19 Rate Blood Pressure 99/63 98/54 O2 Sat by Pulse 93 93 Oximetry - General Appearance General appearance: well-developed, well-nourished EENT: ATNC, other (ETT in place) Respiratory: Present: Other (coarse BS) Cardiology: regular, S1S2 Gastrointestinal: normal, no tenderness, no distended Neurologic: other (sedated) Musculoskeletal: other (no edema) - Lab 02/27/18 04:56 02/27/18 04:56 Most recent lab results Calcium 7.8 mg/dL (8.4-10.2) L 02/27/18 04:56 Urine Creatinine 38.6 mg/dL (0.1-20.0) H 02/26/18 13:08 Urine Sodium 67 mmol/L 02/26/18 13:08
[2018-02-27] MEDS: ZOSYN/NS 2.25 GM/50ML 2.25 GM/50 ML BAG IV SCH ×2 (08:55→16:35)
[2018-02-27] MEDS: D5NS 0.2% 1,000 ML IV SCH ×2 (08:55→18:22)
[2018-02-27] MEDS: LEVOPHED DRIP 4 MG/NS 250 ML 4 MG/250 ML BAG IV SCH ×2 (09:40→15:28)
[2018-02-27] MEDS: PEPCID IV SCH (12:35)
[2018-02-27] MEDS: SODIUM CHLORIDE FLUSH SYRINGE 10 ML IV SCH ×2 (12:37→22:28)
[2018-02-27] MEDS: SODIUM BICARBONATE FEEDTUBE SCH ×3 (12:39→22:19)
[2018-02-27] MEDS: LACTATED RINGERS 1,000 ML IV SCH ×2 (13:10→22:30)
[2018-02-27] MEDS: HEPARIN SUB-Q SCH ×2 (13:10→22:19)
--- NOTE | 2018-02-27 14:18 | Progress Note ---
Assessment and Plan Severe sepsis with septic shock. Aspiration pneumonia, healthcare associated. Acute on chronic encephalopathy. Acute on chronic kidney injury. Anemia. Hypernatremia. Metabolic acidosis. Lactic acidosis. History of hypertension. History of diabetes. History of Alzheimer dementia. - continue full MVS for now - pull ETT back 1-2 cm - reduce TV to 450mls and reduced set rate to 12/min - daily SAT's and SBT's - continue bronchodilators with pulmonary hygiene per RT - continue to wean FiO2 for sats > 90% - addressing VAP bundle daily - continue to wean levophed for MAP > 65 mmHg (at 15 mics/min now) - continue free water flushes - strict I's & O's re: DIANNA and will leave shrestha catheter in place for now - begin LR @ 100mls/hr for 3 liters re: hypotension - trend CRP and lactate prn - continue enteral nutrition as tolerated - continue mobility protocol for pressure ulcer prophylaxis - continue GI & VTE prophylaxis - continue antibiotics empirically - ID consult - contact precautions as now 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 The aggregate critical care time was [35] minutes without overlap. Time includes spent on; [x] Data Review and interpretation [x] Patient assessment and monitoring of vital signs [x] Documentation [x] Medication orders and management Subjective Date of service: 02/27/18 Principal diagnosis: Acute Hypoxemic Resp Failure; Severe Sepsis; Aspiration Pneumonai (HCAP) Interval history: Patient is seen today for: Acute Hypoxemic Resp Failure; Severe Sepsis; Aspiration Pneumonai (HCAP) Seen and examined at bedside; 24hour events reviewed; nursing and respiratory care staff consulted; no adverse overnight events reported to me; remains on MVS ; AMS is persistent; remains on levophed; no emesis or overt aspiration; no seizure activity Objective Vital Signs - 12hr 02/27/18 02/27/18 02/27/18 02:15 02:30 02:45 Temperature Pulse Rate 95 H 95 H 94 H Pulse Rate [ From Monitor] Respiratory 15 16 16 Rate Blood Pressure 98/65 98/65 92/62 O2 Sat by Pulse 100 100 99 Oximetry 06/18/18 06/18/18 06/18/18 03:00 03:15 03:25 Temperature Pulse Rate 99 H 94 H 95 H Pulse Rate [ From Monitor] Respiratory 15 17 Rate Blood Pressure 88/55 95/62 95/62 O2 Sat by Pulse 99 100 99 Oximetry 18/18 06/18/18 06/18/18 03:30 03:45 04:00 Temperature 98.8 F Pulse Rate 95 H 96 H 94 H Pulse Rate [ 100 H From Monitor] Respiratory 18 18 16 Rate Blood Pressure 100/64 101/63 97/59 O2 Sat by Pulse 100 100 100 Oximetry 18/18 06/18/18 06/18/18 04:15 04:31 04:45 Temperature Pulse Rate 94 H 98 H 97 H Pulse Rate [ From Monitor] Respiratory 15 11 L 11 L Rate Blood Pressure 94/58 94/58 97/63 O2 Sat by Pulse 99 99 100 Oximetry 18/18 /18/18 06/18/18 05:00 05:15 05:30 Temperature Pulse Rate 94 H 93 H 96 H Pulse Rate [ From Monitor] Respiratory 16 21 17 Rate Blood Pressure 99/57 93/64 98/66 O2 Sat by Pulse 100 100 99 Oximetry 18/18 06/18/18 06/18/18 05:45 06:00 06:15 Temperature Pulse Rate 92 H 98 H 97 H Pulse Rate [ From Monitor] Respiratory 16 18 15 Rate Blood Pressure 101/66 106/67 99/65 O2 Sat by Pulse 100 99 99 Oximetry 18/18 /18/18 /18/18 06:30 06:45 07:00 Temperature Pulse Rate 91 H 102 H 104 H Pulse Rate [ From Monitor] Respiratory 16 18 18 Rate Blood Pressure 101/61 101/59 99/63 O2 Sat by Pulse 99 94 94 Oximetry 18/18 06/18/18 06/18/18 07:15 07:30 07:45 Temperature Pulse Rate 100 H 110 H 115 H Pulse Rate [ From Monitor] Respiratory 17 19 22 Rate Blood Pressure 99/63 98/54 92/53 O2 Sat by Pulse 93 93 93 Oximetry 18/18 06/18/18 06/18/18 07:58 08:00 08:15 Temperature 98.7 F Pulse Rate 111 H 112 H Pulse Rate [ 111 H From Monitor] Respiratory 19 18 Rate Blood Pressure 103/56 98/56 O2 Sat by Pulse 93 93 Oximetry 02/27/18 02/27/18 02/27/18 08:30 08:45 09:01 Temperature Pulse Rate 115 H 112 H 116 H Pulse Rate [ From Monitor] Respiratory 19 17 24 Rate Blood Pressure 101/56 91/54 91/54 O2 Sat by Pulse 94 94 97 Oximetry 02/27/18 02/27/18 02/27/18 09:04 09:15 09:30 Temperature Pulse Rate 115 H 112 H 109 H Pulse Rate [ From Monitor] Respiratory 21 17 Rate Blood Pressure 90/46 90/46 78/45 O2 Sat by Pulse 96 96 97 Oximetry 02/27/18 02/27/18 02/27/18 09:45 10:00 10:15 Temperature Pulse Rate 103 H 110 H 112 H Pulse Rate [ From Monitor] Respiratory 15 17 17 Rate Blood Pressure 94/45 92/46 90/52 O2 Sat by Pulse 97 96 96 Oximetry 02/27/18 02/27/18 02/27/18 10:30 10:45 11:00 Temperature Pulse Rate 111 H 113 H 113 H Pulse Rate [ From Monitor] Respiratory 18 18 19 Rate Blood Pressure 90/49 90/55 87/45 O2 Sat by Pulse 97 96 95 Oximetry 02/27/18 02/27/18 02/27/18 11:15 11:30 11:39 Temperature 98.6 F Pulse Rate 113 H Pulse Rate [ 109 H From Monitor] Respiratory 18 20 Rate Blood Pressure 86/50 O2 Sat by Pulse 96 97 Oximetry 02/27/18 02/27/18 11:42 12:00 Temperature 98.6 F Pulse Rate 109 H Pulse Rate [ From Monitor] Respiratory Rate Blood Pressure 84/49 O2 Sat by Pulse 96 Oximetry Constitutional: appears uncomfortable, other (elderly looking AAM, normocephalic and atraumativ on MVS with increased respiratory effort) Eyes: icteric ENT: oropharynx moist, other (ETT 24 cm TERESA) Neck: supple, no lymphadenopathy, no JVD, other (no thyromegaly) Effort: mildly labored Ascultation: Bilateral: diminished breath sounds, rales Percussion: Bilateral: not dull Cardiovascular: regular rate and rhythm, other (No R/M) Gastrointestinal: normoactive bowel sounds, soft, non-tender, non-distended, other (+ PEG; No HSM) Integumentary: other (poor turgor) Extremities: no cyanosis, no edema, pulses normal, no ischemia or petechiae Neurologic: pupils equal and round, other (left hemiplegia) Psychiatric: other (unable to assess re: encephalopathy) CBC and BMP: 02/27/18 04:56 02/27/18 04:56 ABG, PT/INR, D-dimer: ABG POC ABG pH 7.453 (7.35-7.45) H 02/27/18 03:39 POC ABG pCO2 27.2 (35-45) L 02/27/18 03:39 POC ABG pO2 91 (80-105) 02/27/18 03:39 POC ABG HCO3 19.0 02/27/18 03:39 POC ABG Total CO2 20 02/27/18 03:39 POC ABG O2 Sat 98 02/27/18 03:39 PT/INR, D-dimer PT 21.5 Sec. (12.2-14.9) H 02/26/18 20:50 INR 1.75 (0.87-1.13) H 02/26/18 20:50 Abnormal lab findings: Abnormal Labs 02/25/18 02/25/18 02/25/18 23:15 23:15 23:15 WBC 12.3 H RBC 3.56 L Hgb 10.2 L Hct 33.7 L MCV 95 H MCHC 30 L RDW 17.7 H Seg Neuts % (Manual) 35.0 L Lymphocytes % (Manual) 13.0 L Monocytes % (Manual) 8.0 H Nucleated RBC % Seg Neutrophils # Man Lymphocytes # (Manual) Monocytes # (Manual) 1.0 H PT 20.3 H INR 1.63 H POC ABG pH POC ABG pCO2 POC ABG pO2 Sodium 152 H Chloride 108.7 H Carbon Dioxide 18 L BUN 136 H Creatinine 5.2 H Glucose POC Glucose Lactic Acid Calcium 8.0 L Total Bilirubin 4.50 H AST 83 H C-Reactive Protein Albumin 2.7 L Urine Creatinine 02/25/18 02/25/18 02/26/18 23:15 23:30 03:06 WBC RBC Hgb Hct MCV MCHC RDW Seg Neuts % (Manual) Lymphocytes % (Manual) Monocytes % (Manual) Nucleated RBC % Seg Neutrophils # Man Lymphocytes # (Manual) Monocytes # (Manual) PT INR POC ABG pH POC ABG pCO2 25.2 L POC ABG pO2 69 L Sodium Chloride Carbon Dioxide BUN Creatinine Glucose POC Glucose Lactic Acid 7.00 H* 9.70 H* Calcium Total Bilirubin AST C-Reactive Protein Albumin Urine Creatinine 02/26/18 02/26/18 02/26/18 05:12 05:43 07:39 WBC 23.7 H RBC 3.27 L Hgb 9.3 L Hct 31.1 L MCV 95 H MCHC 30 L RDW 17.4 H Seg Neuts % (Manual) Lymphocytes % (Manual) 2.0 L Monocytes % (Manual) Nucleated RBC % 1.0 H Seg Neutrophils # Man 16.1 H Lymphocytes # (Manual) 0.5 L Monocytes # (Manual) 1.2 H PT INR POC ABG pH POC ABG pCO2 19.5 L POC ABG pO2 72 L Sodium Chloride Carbon Dioxide BUN Creatinine Glucose POC Glucose Lactic Acid 8.80 H* Calcium Total Bilirubin AST C-Reactive Protein Albumin Urine Creatinine 02/26/18 02/26/18 02/26/18 07:39 12:06 13:08 WBC RBC Hgb Hct MCV MCHC RDW Seg Neuts % (Manual) Lymphocytes % (Manual) Monocytes % (Manual) Nucleated RBC % Seg Neutrophils # Man Lymphocytes # (Manual) Monocytes # (Manual) PT INR POC ABG pH POC ABG pCO2 27.8 L POC ABG pO2 168 H Sodium 155 H Chloride 114.2 H Carbon Dioxide 14 L BUN 120 H Creatinine 4.6 H Glucose 108 H POC Glucose Lactic Acid Calcium 7.7 L Total Bilirubin 4.50 H AST 105 H C-Reactive Protein Albumin 2.4 L Urine Creatinine 38.6 H 02/26/18 02/26/18 02/26/18 18:41 20:50 20:50 WBC RBC Hgb Hct MCV MCHC RDW Seg Neuts % (Manual) Lymphocytes % (Manual) Monocytes % (Manual) Nucleated RBC % Seg Neutrophils # Man Lymphocytes # (Manual) Monocytes # (Manual) PT 21.5 H INR 1.75 H POC ABG pH POC ABG pCO2 POC ABG pO2 Sodium Chloride Carbon Dioxide BUN Creatinine Glucose POC Glucose 135 H Lactic Acid Calcium Total Bilirubin AST C-Reactive Protein 33.90 H Albumin Urine Creatinine 02/27/18 02/27/18 02/27/18 03:39 04:56 04:56 WBC 20.1 H RBC 2.92 L Hgb 8.4 L Hct 27.5 L MCV MCHC 31 L RDW 17.1 H Seg Neuts % (Manual) 92.0 H Lymphocytes % (Manual) 3.0 L Monocytes % (Manual) Nucleated RBC % Seg Neutrophils # Man 18.5 H Lymphocytes # (Manual) 0.6 L Monocytes # (Manual) PT INR POC ABG pH 7.453 H POC ABG pCO2 27.2 L POC ABG pO2 Sodium 149 H Chloride 113.1 H Carbon Dioxide 18 L BUN 103 H Creatinine 3.8 H Glucose 120 H POC Glucose Lactic Acid Calcium 7.8 L Total Bilirubin AST C-Reactive Protein Albumin Urine Creatinine 02/27/18 12:37 WBC RBC Hgb Hct MCV MCHC RDW Seg Neuts % (Manual) Lymphocytes % (Manual) Monocytes % (Manual) Nucleated RBC % Seg Neutrophils # Man Lymphocytes # (Manual) Monocytes # (Manual) PT INR POC ABG pH POC ABG pCO2 POC ABG pO2 Sodium Chloride Carbon Dioxide BUN Creatinine Glucose POC Glucose 169 H Lactic Acid Calcium Total Bilirubin AST C-Reactive Protein Albumin Urine Creatinine Chest x-ray: image reviewed (persistent bilateral infiltrates; ETT low and will be pulled back 1-2 cm) Allied health notes reviewed: nursing
--- NOTE | 2018-02-27 15:15 | Progress Note ---
Assessment and Plan Assessment and plan: 72-year-old male with history of cerebrovascular accident hemiplegia. Alzheimer's and nonverbal from [facility] sent for altered mental state. Since yesterday and high fever and increasing shortness of breath and respiratory distress. Patient's temperature was 103.2F in the initial evaluation in the emergency room. Patient was also severely tachypneic with respiratory rate of 40. Sudden onset. No exacerbating or relieving factors. Patient is a resident of [facility]. Septic Shock * started on vanco and zosyn now on the later with zyvox started and vanco discontinued * follow cultures * continue isolation per ID Acute Hypoxemic Respiratory Failure * Continues on mechanical ventilation * Pulmonary following. * IV solumedrol and Nebs Aspiration Pneumonia * Continue abx as noted above Acute Encephalopathy * patient with alzhimers disease Acute Kidney injury * Likely secondary to ATN * Continue IV fluids BPH * Continue Finasterid Hyperlipidemia * continue statin CVA PER HX * Complete immobility due to frailty per documentation DVT/GI prophy No family present at this time. History Interval history: Patient seen and examined, remains intubated and sedated, opens eyes to verbal stimuli but not following any commands. Hospitalist Physical - Physical exam Narrative exam: General appearance: Present: no acute distress, severe distress, well-nourished - EENT Eyes: Present: PERRL ENT: hearing intact, clear oral mucosa - Neck Neck: Present: supple, normal ROM - Respiratory Respiratory effort: INTUBATED Respiratory: bilateral: rales, rhonchi - Cardiovascular Heart rate: 100 Rhythm: regular Heart Sounds: Present: S1 & S2. Absent: rub, click - Extremities Extremities: no ischemia, pulses intact, pulses symmetrical, No edema Peripheral Pulses: within normal limits - Abdominal General gastrointestinal: Present: soft, non-tender, non-distended, normal bowel sounds Male genitourinary: Present: normal - Rectal Rectal Exam: deferred - Integumentary Integumentary: Present: clear, warm, dry - Musculoskeletal Musculoskeletal: left sided weakness, generalized weakness, other - Psychiatric Psychiatric: other (severely altered sensorium) - Neurologic Neurologic: focal deficits, other (severely altered sensorium and nearly unresponsive) - Constitutional Vitals: Temp Pulse Resp BP Pulse Ox 98.6 F 94 H 19 98/63 96 02/27/18 12:00 02/27/18 15:00 02/27/18 15:00 02/27/18 15:00 02/27/18 15:00 General appearance: Present: no acute distress, severe distress, well-nourished Results - Labs CBC & Chem 7: 02/27/18 04:56 02/27/18 04:56 Labs: Laboratory Last Values WBC 20.1 K/mm3 (4.5-11.0) H 02/27/18 04:56 RBC 2.92 M/mm3 (3.65-5.03) L 02/27/18 04:56 Hgb 8.4 gm/dl (11.8-15.2) L 02/27/18 04:56 Hct 27.5 % (35.5-45.6) L 02/27/18 04:56 MCV 94 fl (84-94) 02/27/18 04:56 MCH 29 pg (28-32) 02/27/18 04:56 MCHC 31 % (32-34) L 02/27/18 04:56 RDW 17.1 % (13.2-15.2) H 02/27/18 04:56 Plt Count 274 K/mm3 (140-440) 02/27/18 04:56 Add Manual Diff Complete 02/27/18 04:56 Total Counted 100 02/27/18 04:56 Seg Neutrophils % [employer] 02/26/18 07:39 Seg Neuts % (Manual) 92.0 % (40.0-70.0) H 02/27/18 04:56 Band Neutrophils % 2.0 % 02/27/18 04:56 Lymphocytes % (Manual) 3.0 % (13.4-35.0) L 02/27/18 04:56 Reactive Lymphs % (Man) 0 % 02/27/18 04:56 Monocytes % (Manual) 3.0 % (0.0-7.3) 02/27/18 04:56 Eosinophils % (Manual) 0 % (0.0-4.3) 02/27/18 04:56 Basophils % (Manual) 0 % (0.0-1.8) 02/27/18 04:56 Metamyelocytes % 0 % 02/27/18 04:56 Myelocytes % 0 % 02/27/18 04:56 Promyelocytes % 0 % 02/27/18 04:56 Blast Cells % 0 % 02/27/18 04:56 Nucleated RBC % Not Reportable 02/27/18 04:56 Seg Neutrophils # Man 18.5 K/mm3 (1.8-7.7) H 02/27/18 04:56 Band Neutrophils # 0.4 K/mm3 02/27/18 04:56 Lymphocytes # (Manual) 0.6 K/mm3 (1.2-5.4) L 02/27/18 04:56 Abs React Lymphs (Man) 0.0 K/mm3 02/27/18 04:56 Monocytes # (Manual) 0.6 K/mm3 (0.0-0.8) 02/27/18 04:56 Eosinophils # (Manual) 0.0 K/mm3 (0.0-0.4) 02/27/18 04:56 Basophils # (Manual) 0.0 K/mm3 (0.0-0.1) 02/27/18 04:56 Metamyelocytes # 0.0 K/mm3 02/27/18 04:56 Myelocytes # 0.0 K/mm3 02/27/18 04:56 Promyelocytes # 0.0 K/mm3 02/27/18 04:56 Blast Cells # 0.0 K/mm3 02/27/18 04:56 WBC Morphology Not Reportable 02/27/18 04:56 Hypersegmented Neuts Not Reportable 02/27/18 04:56 Hyposegmented Neuts Not Reportable 02/27/18 04:56 Hypogranular Neuts Not Reportable 02/27/18 04:56 Smudge Cells Not Reportable 02/27/18 04:56 Toxic Granulation Not Reportable 02/27/18 04:56 Toxic Vacuolation Not Reportable 02/27/18 04:56 Dohle Bodies Not Reportable 02/27/18 04:56 Pelger-Huet Anomaly Not Reportable 02/27/18 04:56 Erwin Rods Not Reportable 02/27/18 04:56 Platelet Estimate Cons 02/27/18 04:56 Clumped Platelets Not Reportable 02/27/18 04:56 Plt Clumps, EDTA Not Reportable 02/27/18 04:56 Large Platelets Not Reportable 02/27/18 04:56 Giant Platelets Not Reportable 02/27/18 04:56 Platelet Satelliting Not Reportable 02/27/18 04:56 Plt Morphology Comment Not Reportable 02/27/18 04:56 RBC Morphology Not Reportable 02/27/18 04:56 Dimorphic RBCs Not Reportable 02/27/18 04:56 Polychromasia Not Reportable 02/27/18 04:56 Hypochromasia Not Reportable 02/27/18 04:56 Poikilocytosis 1+ 02/27/18 04:56 Anisocytosis 1+ 02/27/18 04:56 Microcytosis Not Reportable 02/27/18 04:56 Macrocytosis Not Reportable 02/27/18 04:56 Spherocytes Not Reportable 02/27/18 04:56 Pappenheimer Bodies Not Reportable 02/27/18 04:56 Sickle Cells Not Reportable 02/27/18 04:56 Target Cells Not Reportable 02/27/18 04:56 Tear Drop Cells Not Reportable 02/27/18 04:56 Ovalocytes Not Reportable 02/27/18 04:56 Helmet Cells Not Reportable 02/27/18 04:56 [place] Bodies Not Reportable 02/27/18 04:56 [place] Rings Not Reportable 02/27/18 04:56 [place] Cells 1+ 02/27/18 04:56 Bite Cells Not Reportable 02/27/18 04:56 Crenated Cell Not Reportable 02/27/18 04:56 Elliptocytes Not Reportable 02/27/18 04:56 Acanthocytes (Spur) Not Reportable 02/27/18 04:56 Rouleaux Not Reportable 02/27/18 04:56 Hemoglobin C Crystals Not Reportable 02/27/18 04:56 Schistocytes Not Reportable 02/27/18 04:56 Malaria parasites Not Reportable 02/27/18 04:56 Aric Bodies Not Reportable 02/27/18 04:56 Hem Pathologist Commnt No 02/27/18 04:56 PT 21.5 Sec. (12.2-14.9) H 02/26/18 20:50 INR 1.75 (0.87-1.13) H 02/26/18 20:50 POC ABG pH 7.453 (7.35-7.45) H 02/27/18 03:39 POC ABG pCO2 27.2 (35-45) L 02/27/18 03:39 POC ABG pO2 91 (80-105) 02/27/18 03:39 POC ABG HCO3 19.0 02/27/18 03:39 POC ABG Total CO2 20 02/27/18 03:39 POC ABG O2 Sat 98 02/27/18 03:39 POC ABG Base Excess -5 02/27/18 03:39 VBG pH 7.406 (7.320-7.420) 02/25/18 23:15 FiO2 40 % 02/27/18 03:39 Sodium 149 mmol/L (137-145) H 02/27/18 04:56 Potassium 3.7 mmol/L (3.6-5.0) 02/27/18 04:56 Chloride 113.1 mmol/L (98-107) H 02/27/18 04:56 Carbon Dioxide 18 mmol/L (22-30) L 02/27/18 04:56 Anion Gap 22 mmol/L 02/27/18 04:56 BUN 103 mg/dL (9-20) H 02/27/18 04:56 Creatinine 3.8 mg/dL (0.8-1.5) H 02/27/18 04:56 Estimated GFR 19 ml/min 02/27/18 04:56 BUN/Creatinine Ratio 27 % 02/27/18 04:56 Glucose 120 mg/dL (75-100) H 02/27/18 04:56 POC Glucose 169 (70-105) H 02/27/18 12:37 Lactic Acid 2.90 mmol/L (0.7-2.0) H* 02/27/18 12:45 Calcium 7.8 mg/dL (8.4-10.2) L 02/27/18 04:56 Total Bilirubin 4.50 mg/dL (0.1-1.2) H 02/26/18 07:39 AST 105 units/L (5-40) H 02/26/18 07:39 ALT 48 units/L (7-56) 02/26/18 07:39 Alkaline Phosphatase 109 units/L (35-129) 02/26/18 07:39 C-Reactive Protein 33.90 mg/dL (0.00-1.30) H 02/26/18 20:50 Total Protein 6.4 g/dL (6.3-8.2) 02/26/18 07:39 Albumin 2.4 g/dL (3.9-5) L 02/26/18 07:39 Albumin/Globulin Ratio 0.6 % 02/26/18 07:39 Lipase 35 units/L (13-60) 02/26/18 02:58 TSH 2.670 mlU/mL (0.270-4.200) 02/26/18 00:10 Free T4 1.26 ng/dL (0.76-1.46) 02/26/18 00:10 Urine Color [place] (Yellow) 02/26/18 00:32 Urine Turbidity Hazy (Clear) 02/26/18 00:32 Urine pH 5.0 (5.0-7.0) 02/26/18 00:32 Ur Specific [place] 1.015 (1.003-1.030) 02/26/18 00:32 Urine Protein <15 mg/dl mg/dL (Negative) 02/26/18 00:32 Urine Glucose (UA) Neg mg/dL (Negative) 02/26/18 00:32 Urine Ketones Neg mg/dL (Negative) 02/26/18 00:32 Urine Blood Neg (Negative) 02/26/18 00:32 Urine Nitrite Neg (Negative) 02/26/18 00:32 Urine Bilirubin Neg (Negative) 02/26/18 00:32 Urine Urobilinogen 4.0 mg/dL (<2.0) 02/26/18 00:32 Ur Leukocyte Esterase Neg (Negative) 02/26/18 00:32 Urine WBC (Auto) 1.0 /HPF (0.0-6.0) 02/26/18 00:32 Urine RBC (Auto) 1.0 /HPF (0.0-6.0) 02/26/18 00:32 U Epithel Cells (Auto) 1.0 /HPF (0-13.0) 02/26/18 00:32 Amorphous Crystals 3+ 02/26/18 00:32 Hyaline Casts 4 /LPF 02/26/18 00:32 Urine Mucus Few /HPF 02/26/18 00:32 Urine Creatinine 38.6 mg/dL (0.1-20.0) H 02/26/18 13:08 Urine Sodium 67 mmol/L 02/26/18 13:08
[2018-02-27] MEDS: TYLENOL FEEDTUBE PRN (16:13)
--- NOTE | 2018-02-27 20:48 | Consultation ---
History of Present Illness - Reason for Consult Consult date: 02/27/18 severe sepsis Requesting physician: LEXI MENDEZ - History of Present Illness 72 y/o male with history of previous CVA with residual hemiparesia, non verbal, resident of a long term, admitted on 02/25/18 due to 2 day-history of fever, AMS and worsening SOB. Patient is currently intubated unable to provide a history. In the ED, temp 103.2, HR 128, R 44, BP 65/46, O2 sat 91%, WBC 12.3, Hg 10.2, Plat 384. Band 44%. Creat 5.2. Lactate 7. UA neg. CXR shoed mild vascular congestion. CT showed multilobar pneumonia bilateral upper and lower lobes. Micro: Blood cx 02/26 ngtd Urine cx 02/26 neg Tracheal asp 02/26 MRSA x 2 Abx: zosyn vanco Past History Past Medical History: other (CVA) Past Surgical History: No surgical history Medications and Allergies Allergies Allergy/AdvReac Type Severity Reaction Status Date / Time No Known Allergies Allergy Verified 12/26/14 12:14 Home Medications Medication Instructions Recorded Confirmed Last Taken Type Amlodipine Besylate [Norvasc] 10 mg PO DAILY 12/27/17 02/26/18 Unknown History Finasteride [Proscar] 5 mg PO DAILY 12/27/17 02/26/18 Unknown History HYDROcodone/ACETAMINOPHEN [Parsons 1 each PO Q6H PRN #10 tablet 01/04/18 02/26/18 Unknown Rx 5-325 Tablet] Metoprolol [Lopressor TAB] 25 mg PO BID #60 tablet 01/04/18 02/26/18 Unknown Rx hydrALAZINE [Apresoline TAB] 50 mg PO Q8HR #30 tablet 01/04/18 02/26/18 Unknown Rx Acetaminophen 650 mg PO Q6H PRN 02/26/18 02/26/18 Unknown History Apixaban [Eliquis] 2.5 mg PO BID 02/26/18 02/26/18 Unknown History Omeprazole Magnesium [PriLOSEC Otc] 20 mg PO QDAY 02/26/18 02/26/18 Unknown History Torsemide [Demadex] 10 mg PO QDAY 02/26/18 02/26/18 Unknown History Active Meds: Active Medications Acetaminophen (Tylenol) 650 mg WA Q6H PRN PRN Reason: Pain MILD(1-3)/Fever >100.5/GALVIN Acetaminophen (Tylenol) 650 mg FEEDTUBE Q6H PRN PRN Reason: Pain MILD(1-3)/Fever >100.5/GALVIN Last Admin: 02/27/18 16:13 Dose: 650 mg Lipase/Protease/Amylase (Pancreaze Dr 10,500 Unit) 1 each FEEDTUBE PRN PRN PRN Reason: For Clogged Feeding Tube Famotidine (Pepcid) 20 mg IV DAILY DERREK Last Admin: 02/27/18 12:35 Dose: 20 mg Heparin Sodium (Porcine) (Heparin) 5,000 unit SUB-Q Q12HR DERREK Last Admin: 02/27/18 13:10 Dose: 5,000 unit Hydrophilic Ointment (Vaseline Lip Therapy) 1 applic TP Q2HR PRN PRN Reason: Dry Lips Last Admin: 02/26/18 16:05 Dose: 1 applic Piperacillin Sod/Tazobactam Sod (Zosyn/Ns 2.25 Gm/50ml) 2.25 gm in 50 mls @ 100 mls/hr IV Q8H DERREK Last Admin: 02/27/18 16:35 Dose: 100 mls/hr Fentanyl Citrate (Fentanyl Drip Premix) 2,000 mcg in 100 mls @ 3.402 mls/hr IV TITR DERREK; Protocol Last Admin: 02/26/18 22:49 Dose: 1 mcg/kg/hr, 3.402 mls/hr Propofol (Diprivan 10 Mg/Ml) 1,000 mg in 100 mls @ 2.041 mls/hr IV TITR DERREK; Protocol Dextrose/Sodium Chloride (D5ns 0.2%) 1,000 mls @ 125 mls/hr IV DIRECT DERREK Last Admin: 02/27/18 18:22 Dose: 125 mls/hr Norepinephrine (Levophed Drip 4 Mg/Ns 250 Ml) 4 mg in 250 mls @ 7.5 mls/hr IV TITR DERREK; Protocol Last Titration: 02/27/18 18:28 Dose: 4 mcg/min, 15 mls/hr Lactated Ringer's (Lactated Ringers) 1,000 mls @ 100 mls/hr IV DIRECT DERREK Stop: 03/01/18 22:59 Last Admin: 02/27/18 13:10 Dose: 100 mls/hr Morphine Sulfate (Morphine) 2 mg IV Q4H PRN PRN Reason: Pain, Moderate (4-6) Multi-Ingred Cream/Lotion/Oil/Oint (Artificial Tears Ophth Oint) 1 applic OU Q4HR PRN PRN Reason: Dry Eye(s) Last Admin: 02/26/18 14:48 Dose: 1 applic Promethazine HCl (Phenergan) 25 mg WA Q6H PRN PRN Reason: N/V IF NPO AND NO IV ACCESS Simple Syrup (Simple Syrup) 15 ml FEEDTUBE PRN PRN PRN Reason: Hypoglycemia Simple Syrup (Simple Syrup) 30 ml FEEDTUBE PRN PRN PRN Reason: Hypoglycemia Sodium Bicarbonate (Sodium Bicarbonate) 325 mg FEEDTUBE PRN PRN PRN Reason: For Clogged Feeding Tube Sodium Bicarbonate (Sodium Bicarbonate) 1,300 mg FEEDTUBE TID [facility] Last Admin: 02/27/18 13:09 Dose: 1,300 mg Sodium Chloride (Sodium Chloride Flush Syringe 10 Ml) 10 ml IV BID [facility] Last Admin: 02/27/18 12:37 Dose: 10 ml Sodium Chloride (Sodium Chloride Flush Syringe 10 Ml) 10 ml IV PRN PRN PRN Reason: LINE FLUSH Sodium Chloride (Nacl 0.9% 500 Ml) 1 ml IV DIRECT DERREK Vancomycin HCl (Vancomycin Pharmacy To Dose) 1 each IV PKCONSULT DERREK Physical Examination - Physical Exam Narrative exam: Sedated on the vent NC/AT, ASH, OP with ETT, OGT Neck no LNs Lungs josh scattered rhonchi CV tachycardic Abd soft distended Ext +josh leg edema Neuro sedated Skin no rash Lines: shrestha and right fem TLC - Constitutional Vitals: Vital Signs Temp Pulse Resp BP Pulse Ox 98 F 97 H 19 91/60 95 02/27/18 20:00 02/27/18 18:15 02/27/18 18:15 02/27/18 18:15 02/27/18 18:15 Temperature -Last 24 Hours Temperature 98 F Temperature 100.1 F Temperature 98.6 F Temperature 98.6 F Temperature 98.7 F Temperature 98.8 F Temperature 97.9 F Temperature 98.3 F Results - Labs CBC & Chem 7: 02/27/18 04:56 02/27/18 04:56 Labs: Abnormal lab results 02/26/18 02/26/18 02/27/18 Range/Units 20:50 20:50 03:39 WBC (4.5-11.0) K/mm3 RBC (3.65-5.03) M/mm3 Hgb (11.8-15.2) gm/dl Hct (35.5-45.6) % MCHC (32-34) % RDW (13.2-15.2) % Seg Neuts % (Manual) (40.0-70.0) % Lymphocytes % (Manual) (13.4-35.0) % Seg Neutrophils # Man (1.8-7.7) K/mm3 Lymphocytes # (Manual) (1.2-5.4) K/mm3 PT 21.5 H (12.2-14.9) Sec. INR 1.75 H (0.87-1.13) POC ABG pH 7.453 H (7.35-7.45) POC ABG pCO2 27.2 L (35-45) Sodium (137-145) mmol/L Chloride (98-107) mmol/L Carbon Dioxide (22-30) mmol/L BUN (9-20) mg/dL Creatinine (0.8-1.5) mg/dL Glucose (75-100) mg/dL POC Glucose (70-105) Lactic Acid (0.7-2.0) mmol/L Calcium (8.4-10.2) mg/dL C-Reactive Protein 33.90 H (0.00-1.30) mg/dL 02/27/18 02/27/18 02/27/18 Range/Units 04:56 04:56 12:37 WBC 20.1 H (4.5-11.0) K/mm3 RBC 2.92 L (3.65-5.03) M/mm3 Hgb 8.4 L (11.8-15.2) gm/dl Hct 27.5 L (35.5-45.6) % MCHC 31 L (32-34) % RDW 17.1 H (13.2-15.2) % Seg Neuts % (Manual) 92.0 H (40.0-70.0) % Lymphocytes % (Manual) 3.0 L (13.4-35.0) % Seg Neutrophils # Man 18.5 H (1.8-7.7) K/mm3 Lymphocytes # (Manual) 0.6 L (1.2-5.4) K/mm3 PT (12.2-14.9) Sec. INR (0.87-1.13) POC ABG pH (7.35-7.45) POC ABG pCO2 (35-45) Sodium 149 H (137-145) mmol/L Chloride 113.1 H (98-107) mmol/L Carbon Dioxide 18 L (22-30) mmol/L BUN 103 H (9-20) mg/dL Creatinine 3.8 H (0.8-1.5) mg/dL Glucose 120 H (75-100) mg/dL POC Glucose 169 H (70-105) Lactic Acid (0.7-2.0) mmol/L Calcium 7.8 L (8.4-10.2) mg/dL C-Reactive Protein (0.00-1.30) mg/dL 02/27/18 02/27/18 Range/Units 12:45 17:51 WBC (4.5-11.0) K/mm3 RBC (3.65-5.03) M/mm3 Hgb (11.8-15.2) gm/dl Hct (35.5-45.6) % MCHC (32-34) % RDW (13.2-15.2) % Seg Neuts % (Manual) (40.0-70.0) % Lymphocytes % (Manual) (13.4-35.0) % Seg Neutrophils # Man (1.8-7.7) K/mm3 Lymphocytes # (Manual) (1.2-5.4) K/mm3 PT (12.2-14.9) Sec. INR (0.87-1.13) POC ABG pH (7.35-7.45) POC ABG pCO2 (35-45) Sodium (137-145) mmol/L Chloride (98-107) mmol/L Carbon Dioxide (22-30) mmol/L BUN (9-20) mg/dL Creatinine (0.8-1.5) mg/dL Glucose (75-100) mg/dL POC Glucose 133 H (70-105) Lactic Acid 2.90 H* (0.7-2.0) mmol/L Calcium (8.4-10.2) mg/dL C-Reactive Protein (0.00-1.30) mg/dL Assessment and Plan Assessment: 1) Severe sepsis with septic shock: manifested by fever, leukocytosis, bandemia , hypotension; source pneumonia 2) Multilobar pneumonia: due to MRSA 3) Acute respiratory failure 4) Acute encephalopathy 5) DIANNA 6) History of CVA Plan: -stop vanco -start zyvox IV -continue zosyn for now - will stop soon -contact isolation -remove femoral central line and shrestha cath when possible Thanks Mimi Lay MD
[2018-02-27] MEDS: ZYVOX 600MG/300ML 600 MG/300 ML BAG IV SCH (22:27)
[2018-02-27] MEDS: SODIUM CHLORIDE FLUSH SYRINGE 10 ML IV PRN (22:28)
[2018-02-28] MEDS: fentaNYL DRIP Premix 2,000 MCG/100 ML BAG IV SCH (00:20)
[2018-02-28] MEDS: ZOSYN/NS 2.25 GM/50ML 2.25 GM/50 ML BAG IV SCH ×4 (00:20→23:09)
--- NOTE | 2018-02-28 02:54 | XRay Report ---
FINAL REPORT PROCEDURE: XR CHEST 1V AP TECHNIQUE: Chest radiograph anteroposterior view. CPT 89540 HISTORY: follow up respiratory failure COMPARISON: 02/27/2018 FINDINGS: Heart: Normal. Mediastinum/Vessels: Normal. Lungs/Pleural space: Mild vascular congestion. Slight infiltrate left lower lung. No effusion or pneumothorax. Bony thorax: No acute osseous abnormality. Life support devices: The endotracheal tube ends 4 centimeters above the jose luis. IMPRESSION: Slight infiltrate left lower lung. Mild vascular congestion. Endotracheal tube is properly positioned..
[2018-02-28] MEDS: D5NS 0.2% 1,000 ML IV SCH ×2 (03:27→14:46)
[2018-02-28] MEDS: LEVOPHED DRIP 4 MG/NS 250 ML 4 MG/250 ML BAG IV SCH (07:39)
--- NOTE | 2018-02-28 08:25 | Progress Note ---
Assessment and Plan Impression: * Acute kidney injury secondary to prerenal azotemia/ATN due to dehydration vs sepsis * Acute hypoxic respiratory failure * Sepsis * HCAP * Hypernatremia secondary to dehydration * Metabolic acidosis secondary to lactic acidosis Plan: * Renal function improved - no acute indication for dialysis today * Change IVF to 1/2 NS 100ml/hour * K repletion noted * Continue NaBicarb per NGT * Vent management per CCM * Broad spectrum abx * Dose medications for renal function * Avoid potential nephrotoxins Subjective Date of service: 02/28/18 Principal diagnosis: Acute Hypoxemic Resp Failure; Severe Sepsis; Aspiration Pneumonai (HCAP) Interval history: No acute events overnight. Objective - Vital Signs Vital signs: Vital Signs - 12hr 02/27/18 02/27/18 02/27/18 20:30 20:45 20:51 Temperature Pulse Rate 101 H 98 H 102 H Pulse Rate [ From Monitor] Respiratory 14 16 Rate Blood Pressure 80/50 96/49 96/49 O2 Sat by Pulse 96 100 96 Oximetry 02/27/18 02/27/18 02/27/18 21:00 21:12 21:15 Temperature Pulse Rate 102 H 102 H 98 H Pulse Rate [ From Monitor] Respiratory 16 19 21 Rate Blood Pressure 81/47 81/47 91/44 O2 Sat by Pulse 96 96 96 Oximetry 02/27/18 02/27/18 02/27/18 21:30 21:45 22:00 Temperature Pulse Rate 104 H 100 H 102 H Pulse Rate [ 101 H From Monitor] Respiratory 18 15 18 Rate Blood Pressure 85/52 91/47 90/51 O2 Sat by Pulse 94 95 95 Oximetry 02/27/18 02/27/18 02/27/18 22:15 22:30 22:45 Temperature Pulse Rate 101 H 105 H 104 H Pulse Rate [ From Monitor] Respiratory 14 19 22 Rate Blood Pressure 96/53 102/55 98/53 O2 Sat by Pulse 93 94 95 Oximetry 02/27/18 02/27/18 02/27/18 23:00 23:15 23:30 Temperature Pulse Rate 107 H 105 H 109 H Pulse Rate [ From Monitor] Respiratory 17 19 17 Rate Blood Pressure 91/45 92/46 98/42 O2 Sat by Pulse 93 92 95 Oximetry 02/27/18 02/28/18 02/28/18 23:45 00:00 00:15 Temperature 98.6 F Pulse Rate 106 H 105 H 105 H Pulse Rate [ 110 H From Monitor] Respiratory 19 19 18 Rate Blood Pressure 93/51 75/47 97/52 O2 Sat by Pulse 95 95 95 Oximetry 02/28/18 02/28/18 02/28/18 00:31 00:34 00:45 Temperature Pulse Rate 111 H 110 H 104 H Pulse Rate [ From Monitor] Respiratory 20 18 Rate Blood Pressure 117/72 97/52 120/74 O2 Sat by Pulse 94 97 97 Oximetry 02/28/18 02/28/18 02/28/18 01:00 01:15 01:31 Temperature Pulse Rate 108 H 111 H 117 H Pulse Rate [ From Monitor] Respiratory 21 22 26 H Rate Blood Pressure 120/74 112/70 111/68 O2 Sat by Pulse 98 100 Oximetry 02/28/18 02/28/18 02/28/18 01:45 02:00 02:15 Temperature Pulse Rate 109 H 121 H 125 H Pulse Rate [ From Monitor] Respiratory 22 22 25 H Rate Blood Pressure 110/69 120/69 127/70 O2 Sat by Pulse 99 98 97 Oximetry 02/28/18 02/28/18 02/28/18 02:27 02:31 02:45 Temperature 98.3 F Pulse Rate 144 H 154 H Pulse Rate [ From Monitor] Respiratory 32 H 36 H Rate Blood Pressure 127/70 127/70 O2 Sat by Pulse 93 90 Oximetry 02/28/18 02/28/18 02/28/18 03:00 03:15 03:30 Temperature Pulse Rate 131 H 132 H 122 H Pulse Rate [ From Monitor] Respiratory 24 24 20 Rate Blood Pressure 104/67 117/75 115/70 O2 Sat by Pulse 93 85 85 Oximetry 02/28/18 02/28/18 02/28/18 03:31 03:45 04:00 Temperature Pulse Rate 127 H 120 H 114 H Pulse Rate [ 140 H From Monitor] Respiratory 20 22 Rate Blood Pressure 104/65 107/72 O2 Sat by Pulse 94 93 Oximetry 02/28/18 02/28/18 02/28/18 04:15 04:30 04:45 Temperature Pulse Rate 112 H 111 H 113 H Pulse Rate [ From Monitor] Respiratory 18 21 21 Rate Blood Pressure 112/70 119/72 120/72 O2 Sat by Pulse 94 93 93 Oximetry 02/28/18 02/28/18 02/28/18 05:00 05:15 05:25 Temperature Pulse Rate 113 H 113 H 111 H Pulse Rate [ From Monitor] Respiratory 16 15 Rate Blood Pressure 126/69 124/75 124/75 O2 Sat by Pulse 94 98 97 Oximetry 02/28/18 02/28/18 02/28/18 05:31 05:45 06:01 Temperature Pulse Rate 116 H 109 H 109 H Pulse Rate [ From Monitor] Respiratory 19 16 16 Rate Blood Pressure 122/66 116/75 106/73 O2 Sat by Pulse 96 96 95 Oximetry 02/28/18 02/28/18 02/28/18 06:15 06:30 06:45 Temperature Pulse Rate 108 H 106 H 105 H Pulse Rate [ From Monitor] Respiratory 19 20 16 Rate Blood Pressure 106/73 114/69 109/65 O2 Sat by Pulse 95 95 96 Oximetry 02/28/18 02/28/18 02/28/18 07:00 07:15 08:00 Temperature Pulse Rate 117 H 111 H 102 H Pulse Rate [ From Monitor] Respiratory 20 14 5 L Rate Blood Pressure 120/66 103/62 99/66 O2 Sat by Pulse 94 95 97 Oximetry - General Appearance General appearance: well-developed, well-nourished, intubated EENT: ATNC Respiratory: Present: Other (coarse breath sounds) Neurologic: other (awake) Musculoskeletal: other (no edema) - Lab 02/28/18 09:00 02/28/18 09:00 Most recent lab results Calcium 7.8 mg/dL (8.4-10.2) L 02/27/18 04:56 Urine Creatinine 38.6 mg/dL (0.1-20.0) H 02/26/18 13:08 Urine Sodium 67 mmol/L 02/26/18 13:08
--- NOTE | 2018-02-28 08:31 | Progress Note ---
Assessment and Plan Severe sepsis with septic shock. Aspiration pneumonia, healthcare associated. Acute on chronic encephalopathy. Acute on chronic kidney injury. Anemia. Hypernatremia. Metabolic acidosis. Lactic acidosis. History of hypertension. History of diabetes. History of Alzheimer dementia. - continue full MVS for now - daily SAT's and SBT's - continue bronchodilators with pulmonary hygiene per RT - continue to wean FiO2 for sats > 90% - addressing VAP bundle daily - continue to wean levophed for MAP > 65 mmHg - continue free water flushes - strict I's & O's re: DIANNA and will leave shrestha catheter in place for now - volume resuscitate. Once hemodynamically normal and off vasopressor support, initiate volume restrictive strategies - trend CRP and lactate prn - continue enteral nutrition as tolerated - continue mobility protocol for pressure ulcer prophylaxis - continue GI & VTE prophylaxis - continue antibiotics deescalate an adjust based oon culture results and MICAELA - ID consult notes reviewed - contact precautions as now 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 The aggregate critical care time was [35] minutes without overlap. Time includes spent on; [x] Data Review and interpretation [x] Patient assessment and monitoring of vital signs [x] Documentation [x] Medication orders and management Subjective Date of service: 02/28/18 Principal diagnosis: Acute Hypoxemic Resp Failure; Severe Sepsis; Aspiration Pneumonai (HCAP) Objective Vital Signs - 12hr 02/27/18 02/27/18 02/27/18 20:45 20:51 21:00 Temperature Pulse Rate 98 H 102 H 102 H Pulse Rate [ From Monitor] Respiratory 16 16 Rate Blood Pressure 96/49 96/49 81/47 O2 Sat by Pulse 100 96 96 Oximetry 02/27/18 02/27/18 02/27/18 21:12 21:15 21:30 Temperature Pulse Rate 102 H 98 H 104 H Pulse Rate [ From Monitor] Respiratory 19 21 18 Rate Blood Pressure 81/47 91/44 85/52 O2 Sat by Pulse 96 96 94 Oximetry 02/27/18 02/27/18 02/27/18 21:45 22:00 22:15 Temperature Pulse Rate 100 H 102 H 101 H Pulse Rate [ 101 H From Monitor] Respiratory 15 18 14 Rate Blood Pressure 91/47 90/51 96/53 O2 Sat by Pulse 95 95 93 Oximetry 02/27/18 02/27/18 02/27/18 22:30 22:45 23:00 Temperature Pulse Rate 105 H 104 H 107 H Pulse Rate [ From Monitor] Respiratory 19 22 17 Rate Blood Pressure 102/55 98/53 91/45 O2 Sat by Pulse 94 95 93 Oximetry 02/27/18 02/27/18 02/27/18 23:15 23:30 23:45 Temperature Pulse Rate 105 H 109 H 106 H Pulse Rate [ From Monitor] Respiratory 19 17 19 Rate Blood Pressure 92/46 98/42 93/51 O2 Sat by Pulse 92 95 95 Oximetry 02/28/18 02/28/18 02/28/18 00:00 00:15 00:31 Temperature 98.6 F Pulse Rate 105 H 105 H 111 H Pulse Rate [ 110 H From Monitor] Respiratory 19 18 20 Rate Blood Pressure 75/47 97/52 117/72 O2 Sat by Pulse 95 95 94 Oximetry 02/28/18 02/28/18 02/28/18 00:34 00:45 01:00 Temperature Pulse Rate 110 H 104 H 108 H Pulse Rate [ From Monitor] Respiratory 18 21 Rate Blood Pressure 97/52 120/74 120/74 O2 Sat by Pulse 97 97 Oximetry 02/28/18 02/28/18 02/28/18 01:15 01:31 01:45 Temperature Pulse Rate 111 H 117 H 109 H Pulse Rate [ From Monitor] Respiratory 22 26 H 22 Rate Blood Pressure 112/70 111/68 110/69 O2 Sat by Pulse 98 100 99 Oximetry 02/28/18 02/28/18 02/28/18 02:00 02:15 02:27 Temperature 98.3 F Pulse Rate 121 H 125 H Pulse Rate [ From Monitor] Respiratory 22 25 H Rate Blood Pressure 120/69 127/70 O2 Sat by Pulse 98 97 Oximetry 02/28/18 02/28/18 02/28/18 02:31 02:45 03:00 Temperature Pulse Rate 144 H 154 H 131 H Pulse Rate [ From Monitor] Respiratory 32 H 36 H 24 Rate Blood Pressure 127/70 127/70 104/67 O2 Sat by Pulse 93 90 93 Oximetry 02/28/18 02/28/18 02/28/18 03:15 03:30 03:31 Temperature Pulse Rate 132 H 122 H 127 H Pulse Rate [ From Monitor] Respiratory 24 20 Rate Blood Pressure 117/75 115/70 O2 Sat by Pulse 85 85 Oximetry 02/28/18 02/28/18 02/28/18 03:45 04:00 04:15 Temperature Pulse Rate 120 H 114 H 112 H Pulse Rate [ 140 H From Monitor] Respiratory 20 22 18 Rate Blood Pressure 104/65 107/72 112/70 O2 Sat by Pulse 94 93 94 Oximetry 02/28/18 02/28/18 02/28/18 04:30 04:45 05:00 Temperature Pulse Rate 111 H 113 H 113 H Pulse Rate [ From Monitor] Respiratory 21 21 16 Rate Blood Pressure 119/72 120/72 126/69 O2 Sat by Pulse 93 93 94 Oximetry 02/28/18 02/28/18 02/28/18 05:15 05:25 05:31 Temperature Pulse Rate 113 H 111 H 116 H Pulse Rate [ From Monitor] Respiratory 15 19 Rate Blood Pressure 124/75 124/75 122/66 O2 Sat by Pulse 98 97 96 Oximetry 02/28/18 02/28/18 02/28/18 05:45 06:01 06:15 Temperature Pulse Rate 109 H 109 H 108 H Pulse Rate [ From Monitor] Respiratory 16 16 19 Rate Blood Pressure 116/75 106/73 106/73 O2 Sat by Pulse 96 95 95 Oximetry 02/28/18 02/28/18 02/28/18 06:30 06:45 07:00 Temperature Pulse Rate 106 H 105 H 117 H Pulse Rate [ From Monitor] Respiratory 20 16 20 Rate Blood Pressure 114/69 109/65 120/66 O2 Sat by Pulse 95 96 94 Oximetry 02/28/18 02/28/18 07:15 08:00 Temperature Pulse Rate 111 H 102 H Pulse Rate [ From Monitor] Respiratory 14 5 L Rate Blood Pressure 103/62 99/66 O2 Sat by Pulse 95 97 Oximetry Constitutional: appears uncomfortable, other (elderly looking AAM, normocephalic and atraumativ on MVS with increased respiratory effort) Eyes: icteric ENT: oropharynx moist, other (ETT 24 cm TERESA) Neck: supple, no lymphadenopathy, no JVD, other (no thyromegaly) Effort: mildly labored Ascultation: Bilateral: diminished breath sounds, rales Percussion: Bilateral: not dull Cardiovascular: regular rate and rhythm, other (No R/M) Gastrointestinal: normoactive bowel sounds, soft, non-tender, non-distended, other (+ PEG; No HSM) Integumentary: other (poor turgor) Extremities: no cyanosis, no edema, pulses normal, no ischemia or petechiae Neurologic: pupils equal and round, other (left hemiplegia) Psychiatric: other (unable to assess re: encephalopathy) CBC and BMP: 03/02/18 06:00 03/02/18 06:00 ABG, PT/INR, D-dimer: ABG POC ABG pH 7.477 (7.35-7.45) H 02/28/18 05:28 POC ABG pCO2 24.6 (35-45) L 02/28/18 05:28 POC ABG pO2 57 (80-105) L 02/28/18 05:28 POC ABG HCO3 18.2 02/28/18 05:28 POC ABG Total CO2 19 02/28/18 05:28 POC ABG O2 Sat 92 02/28/18 05:28 PT/INR, D-dimer PT 21.5 Sec. (12.2-14.9) H 02/26/18 20:50 INR 1.75 (0.87-1.13) H 02/26/18 20:50 Abnormal lab findings: Abnormal Labs 02/25/18 02/25/18 02/25/18 23:15 23:15 23:15 WBC 12.3 H RBC 3.56 L Hgb 10.2 L Hct 33.7 L MCV 95 H MCHC 30 L RDW 17.7 H Seg Neuts % (Manual) 35.0 L Lymphocytes % (Manual) 13.0 L Monocytes % (Manual) 8.0 H Nucleated RBC % Seg Neutrophils # Man Lymphocytes # (Manual) Monocytes # (Manual) 1.0 H PT 20.3 H INR 1.63 H POC ABG pH POC ABG pCO2 POC ABG pO2 Sodium 152 H Chloride 108.7 H Carbon Dioxide 18 L BUN 136 H Creatinine 5.2 H Glucose POC Glucose Lactic Acid Calcium 8.0 L Total Bilirubin 4.50 H AST 83 H C-Reactive Protein Albumin 2.7 L Urine Creatinine 02/25/18 02/25/18 02/26/18 23:15 23:30 03:06 WBC RBC Hgb Hct MCV MCHC RDW Seg Neuts % (Manual) Lymphocytes % (Manual) Monocytes % (Manual) Nucleated RBC % Seg Neutrophils # Man Lymphocytes # (Manual) Monocytes # (Manual) PT INR POC ABG pH POC ABG pCO2 25.2 L POC ABG pO2 69 L Sodium Chloride Carbon Dioxide BUN Creatinine Glucose POC Glucose Lactic Acid 7.00 H* 9.70 H* Calcium Total Bilirubin AST C-Reactive Protein Albumin Urine Creatinine 02/26/18 02/26/18 02/26/18 05:12 05:43 07:39 WBC 23.7 H RBC 3.27 L Hgb 9.3 L Hct 31.1 L MCV 95 H MCHC 30 L RDW 17.4 H Seg Neuts % (Manual) Lymphocytes % (Manual) 2.0 L Monocytes % (Manual) Nucleated RBC % 1.0 H Seg Neutrophils # Man 16.1 H Lymphocytes # (Manual) 0.5 L Monocytes # (Manual) 1.2 H PT INR POC ABG pH POC ABG pCO2 19.5 L POC ABG pO2 72 L Sodium Chloride Carbon Dioxide BUN Creatinine Glucose POC Glucose Lactic Acid 8.80 H* Calcium Total Bilirubin AST C-Reactive Protein Albumin Urine Creatinine 02/26/18 02/26/18 02/26/18 07:39 12:06 13:08 WBC RBC Hgb Hct MCV MCHC RDW Seg Neuts % (Manual) Lymphocytes % (Manual) Monocytes % (Manual) Nucleated RBC % Seg Neutrophils # Man Lymphocytes # (Manual) Monocytes # (Manual) PT INR POC ABG pH POC ABG pCO2 27.8 L POC ABG pO2 168 H Sodium 155 H Chloride 114.2 H Carbon Dioxide 14 L BUN 120 H Creatinine 4.6 H Glucose 108 H POC Glucose Lactic Acid Calcium 7.7 L Total Bilirubin 4.50 H AST 105 H C-Reactive Protein Albumin 2.4 L Urine Creatinine 38.6 H 02/26/18 02/26/18 02/26/18 18:41 20:50 20:50 WBC RBC Hgb Hct MCV MCHC RDW Seg Neuts % (Manual) Lymphocytes % (Manual) Monocytes % (Manual) Nucleated RBC % Seg Neutrophils # Man Lymphocytes # (Manual) Monocytes # (Manual) PT 21.5 H INR 1.75 H POC ABG pH POC ABG pCO2 POC ABG pO2 Sodium Chloride Carbon Dioxide BUN Creatinine Glucose POC Glucose 135 H Lactic Acid Calcium Total Bilirubin AST C-Reactive Protein 33.90 H Albumin Urine Creatinine 02/27/18 02/27/18 02/27/18 03:39 04:56 04:56 WBC 20.1 H RBC 2.92 L Hgb 8.4 L Hct 27.5 L MCV MCHC 31 L RDW 17.1 H Seg Neuts % (Manual) 92.0 H Lymphocytes % (Manual) 3.0 L Monocytes % (Manual) Nucleated RBC % Seg Neutrophils # Man 18.5 H Lymphocytes # (Manual) 0.6 L Monocytes # (Manual) PT INR POC ABG pH 7.453 H POC ABG pCO2 27.2 L POC ABG pO2 Sodium 149 H Chloride 113.1 H Carbon Dioxide 18 L BUN 103 H Creatinine 3.8 H Glucose 120 H POC Glucose Lactic Acid Calcium 7.8 L Total Bilirubin AST C-Reactive Protein Albumin Urine Creatinine 02/27/18 02/27/18 02/27/18 12:37 12:45 17:51 WBC RBC Hgb Hct MCV MCHC RDW Seg Neuts % (Manual) Lymphocytes % (Manual) Monocytes % (Manual) Nucleated RBC % Seg Neutrophils # Man Lymphocytes # (Manual) Monocytes # (Manual) PT INR POC ABG pH POC ABG pCO2 POC ABG pO2 Sodium Chloride Carbon Dioxide BUN Creatinine Glucose POC Glucose 169 H 133 H Lactic Acid 2.90 H* Calcium Total Bilirubin AST C-Reactive Protein Albumin Urine Creatinine 02/28/18 02/28/18 02/28/18 00:23 05:00 05:02 WBC RBC Hgb Hct MCV MCHC RDW Seg Neuts % (Manual) Lymphocytes % (Manual) Monocytes % (Manual) Nucleated RBC % Seg Neutrophils # Man Lymphocytes # (Manual) Monocytes # (Manual) PT INR POC ABG pH POC ABG pCO2 POC ABG pO2 Sodium Chloride Carbon Dioxide BUN Creatinine Glucose POC Glucose 161 H 116 H Lactic Acid 2.70 H* Calcium Total Bilirubin AST C-Reactive Protein Albumin Urine Creatinine 02/28/18 02/28/18 05:28 07:04 WBC RBC Hgb Hct MCV MCHC RDW Seg Neuts % (Manual) Lymphocytes % (Manual) Monocytes % (Manual) Nucleated RBC % Seg Neutrophils # Man Lymphocytes # (Manual) Monocytes # (Manual) PT INR POC ABG pH 7.477 H POC ABG pCO2 24.6 L POC ABG pO2 57 L Sodium Chloride Carbon Dioxide BUN Creatinine Glucose POC Glucose Lactic Acid 3.10 H* Calcium Total Bilirubin AST C-Reactive Protein Albumin Urine Creatinine Allied health notes reviewed: nursing
[2018-02-28] MEDS: SODIUM BICARBONATE FEEDTUBE SCH ×3 (08:34→23:09)
--- NOTE | 2018-02-28 08:36 | Progress Note ---
Assessment and Plan Assessment and plan: 72-year-old male with history of cerebrovascular accident hemiplegia. Alzheimer's and nonverbal from [facility] sent for altered mental state. Since yesterday and high fever and increasing shortness of breath and respiratory distress. Patient's temperature was 103.2F in the initial evaluation in the emergency room. Patient was also severely tachypneic with respiratory rate of 40. Sudden onset. No exacerbating or relieving factors. Patient is a resident of intermediate facility. Septic Shock * started on vanco and zosyn now on the later with zyvox started and vanco discontinued * follow cultures * continue isolation per ID Acute Hypoxemic Respiratory Failure * Continues on mechanical ventilation * Pulmonary following. * IV solumedrol and Nebs Aspiration Pneumonia * Continue abx as noted above Acute Encephalopathy * patient with alzhimers disease Acute Kidney injury * Likely secondary to ATN * Continue IV fluids Sacral Pressure ulcer * wound care consult BPH * Continue Finasterid Hyperlipidemia * continue statin CVA PER HX-WITH LEFT SIDED HEMIPLEGIA * Complete immobility due to frailty per documentation ANEMIA * Of chronic disease, monitor closely DVT/GI prophy Discussed with son. The high probability of a clinically significant, sudden or life threatening deterioration of the [PULMONARY] system(s) required my full and direct attention , intervention and personal management. The aggregate critical care time was [35 ] minutes. This time is in addition to time spent performing reported procedures but includes the following: [X] Data Review and interpretation [X] Patient assessment and monitoring of vital signs [X] Documentation [X] Medication orders and management History Interval history: Patient seen and examined, remains intubated and sedated, opens eyes to verbal stimuli but not following any commands. moves left side Hospitalist Physical - Physical exam Narrative exam: General appearance: Present: no acute distress, severe distress, on mechanical ventilation - EENT Eyes: Present: PERRL ENT: hearing intact, clear oral mucosa - Neck Neck: Present: supple, normal ROM - Respiratory Respiratory effort: INTUBATED Respiratory: bilateral: rales, rhonchi - Cardiovascular Heart rate: 100 Rhythm: regular Heart Sounds: Present: S1 & S2. Absent: rub, click - Extremities Extremities: no ischemia, pulses intact, pulses symmetrical, No edema Peripheral Pulses: within normal limits - Abdominal General gastrointestinal: Present: soft, non-tender, non-distended, normal bowel sounds Male genitourinary: Present: normal - Rectal Rectal Exam: deferred - Integumentary Integumentary: Present: scaral pressure ulcer - Musculoskeletal Musculoskeletal: left sided weakness, generalized weakness, other - Psychiatric Psychiatric: other (severely altered sensorium) - Neurologic Neurologic: focal deficits, other (severely altered sensorium and nearly unresponsive) - Constitutional Vitals: Temp Pulse Resp BP Pulse Ox 98.3 F 102 H 5 L 99/66 97 02/28/18 02:27 02/28/18 08:00 02/28/18 08:00 02/28/18 08:00 02/28/18 08:00 General appearance: Present: no acute distress, severe distress, well-nourished Results - Labs CBC & Chem 7: 02/28/18 09:00 02/28/18 09:00 Labs: Laboratory Last Values WBC 20.1 K/mm3 (4.5-11.0) H 02/27/18 04:56 RBC 2.92 M/mm3 (3.65-5.03) L 02/27/18 04:56 Hgb 8.4 gm/dl (11.8-15.2) L 02/27/18 04:56 Hct 27.5 % (35.5-45.6) L 02/27/18 04:56 MCV 94 fl (84-94) 02/27/18 04:56 MCH 29 pg (28-32) 02/27/18 04:56 MCHC 31 % (32-34) L 02/27/18 04:56 RDW 17.1 % (13.2-15.2) H 02/27/18 04:56 Plt Count 274 K/mm3 (140-440) 02/27/18 04:56 Add Manual Diff Complete 02/27/18 04:56 Total Counted 100 02/27/18 04:56 Seg Neutrophils % [place] Worker 02/26/18 07:39 Seg Neuts % (Manual) 92.0 % (40.0-70.0) H 02/27/18 04:56 Band Neutrophils % 2.0 % 02/27/18 04:56 Lymphocytes % (Manual) 3.0 % (13.4-35.0) L 02/27/18 04:56 Reactive Lymphs % (Man) 0 % 02/27/18 04:56 Monocytes % (Manual) 3.0 % (0.0-7.3) 02/27/18 04:56 Eosinophils % (Manual) 0 % (0.0-4.3) 02/27/18 04:56 Basophils % (Manual) 0 % (0.0-1.8) 02/27/18 04:56 Metamyelocytes % 0 % 02/27/18 04:56 Myelocytes % 0 % 02/27/18 04:56 Promyelocytes % 0 % 02/27/18 04:56 Blast Cells % 0 % 02/27/18 04:56 Nucleated RBC % Not Reportable 02/27/18 04:56 Seg Neutrophils # Man 18.5 K/mm3 (1.8-7.7) H 02/27/18 04:56 Band Neutrophils # 0.4 K/mm3 02/27/18 04:56 Lymphocytes # (Manual) 0.6 K/mm3 (1.2-5.4) L 02/27/18 04:56 Abs React Lymphs (Man) 0.0 K/mm3 02/27/18 04:56 Monocytes # (Manual) 0.6 K/mm3 (0.0-0.8) 02/27/18 04:56 Eosinophils # (Manual) 0.0 K/mm3 (0.0-0.4) 02/27/18 04:56 Basophils # (Manual) 0.0 K/mm3 (0.0-0.1) 02/27/18 04:56 Metamyelocytes # 0.0 K/mm3 02/27/18 04:56 Myelocytes # 0.0 K/mm3 02/27/18 04:56 Promyelocytes # 0.0 K/mm3 02/27/18 04:56 Blast Cells # 0.0 K/mm3 02/27/18 04:56 WBC Morphology Not Reportable 02/27/18 04:56 Hypersegmented Neuts Not Reportable 02/27/18 04:56 Hyposegmented Neuts Not Reportable 02/27/18 04:56 Hypogranular Neuts Not Reportable 02/27/18 04:56 Smudge Cells Not Reportable 02/27/18 04:56 Toxic Granulation Not Reportable 02/27/18 04:56 Toxic Vacuolation Not Reportable 02/27/18 04:56 Dohle Bodies Not Reportable 02/27/18 04:56 Pelger-Huet Anomaly Not Reportable 02/27/18 04:56 Erwin Rods Not Reportable 02/27/18 04:56 Platelet Estimate Cons 02/27/18 04:56 Clumped Platelets Not Reportable 02/27/18 04:56 Plt Clumps, EDTA Not Reportable 02/27/18 04:56 Large Platelets Not Reportable 02/27/18 04:56 Giant Platelets Not Reportable 02/27/18 04:56 Platelet Satelliting Not Reportable 02/27/18 04:56 Plt Morphology Comment Not Reportable 02/27/18 04:56 RBC Morphology Not Reportable 02/27/18 04:56 Dimorphic RBCs Not Reportable 02/27/18 04:56 Polychromasia Not Reportable 02/27/18 04:56 Hypochromasia Not Reportable 02/27/18 04:56 Poikilocytosis 1+ 02/27/18 04:56 Anisocytosis 1+ 02/27/18 04:56 Microcytosis Not Reportable 02/27/18 04:56 Macrocytosis Not Reportable 02/27/18 04:56 Spherocytes Not Reportable 02/27/18 04:56 Pappenheimer Bodies Not Reportable 02/27/18 04:56 Sickle Cells Not Reportable 02/27/18 04:56 Target Cells Not Reportable 02/27/18 04:56 Tear Drop Cells Not Reportable 02/27/18 04:56 Ovalocytes Not Reportable 02/27/18 04:56 Helmet Cells Not Reportable 02/27/18 04:56 [place] Bodies Not Reportable 02/27/18 04:56 [place] Rings Not Reportable 02/27/18 04:56 [place] Cells 1+ 02/27/18 04:56 Bite Cells Not Reportable 02/27/18 04:56 Crenated Cell Not Reportable 02/27/18 04:56 Elliptocytes Not Reportable 02/27/18 04:56 Acanthocytes (Spur) Not Reportable 02/27/18 04:56 Rouleaux Not Reportable 02/27/18 04:56 Hemoglobin C Crystals Not Reportable 02/27/18 04:56 Schistocytes Not Reportable 02/27/18 04:56 Malaria parasites Not Reportable 02/27/18 04:56 Aric Bodies Not Reportable 02/27/18 04:56 Hem Pathologist Commnt No 02/27/18 04:56 PT 21.5 Sec. (12.2-14.9) H 02/26/18 20:50 INR 1.75 (0.87-1.13) H 02/26/18 20:50 POC ABG pH 7.477 (7.35-7.45) H 02/28/18 05:28 POC ABG pCO2 24.6 (35-45) L 02/28/18 05:28 POC ABG pO2 57 (80-105) L 02/28/18 05:28 POC ABG HCO3 18.2 02/28/18 05:28 POC ABG Total CO2 19 02/28/18 05:28 POC ABG O2 Sat 92 02/28/18 05:28 POC ABG Base Excess -5 02/28/18 05:28 VBG pH 7.406 (7.320-7.420) 02/25/18 23:15 FiO2 35 % 02/28/18 05:28 Sodium 149 mmol/L (137-145) H 02/27/18 04:56 Potassium 3.7 mmol/L (3.6-5.0) 02/27/18 04:56 Chloride 113.1 mmol/L (98-107) H 02/27/18 04:56 Carbon Dioxide 18 mmol/L (22-30) L 02/27/18 04:56 Anion Gap 22 mmol/L 02/27/18 04:56 BUN 103 mg/dL (9-20) H 02/27/18 04:56 Creatinine 3.8 mg/dL (0.8-1.5) H 02/27/18 04:56 Estimated GFR 19 ml/min 02/27/18 04:56 BUN/Creatinine Ratio 27 % 02/27/18 04:56 Glucose 120 mg/dL (75-100) H 02/27/18 04:56 POC Glucose 116 (70-105) H 02/28/18 05:02 Lactic Acid 3.10 mmol/L (0.7-2.0) H* 02/28/18 07:04 Calcium 7.8 mg/dL (8.4-10.2) L 02/27/18 04:56 Total Bilirubin 4.50 mg/dL (0.1-1.2) H 02/26/18 07:39 AST 105 units/L (5-40) H 02/26/18 07:39 ALT 48 units/L (7-56) 02/26/18 07:39 Alkaline Phosphatase 109 units/L (35-129) 02/26/18 07:39 C-Reactive Protein 33.90 mg/dL (0.00-1.30) H 02/26/18 20:50 Total Protein 6.4 g/dL (6.3-8.2) 02/26/18 07:39 Albumin 2.4 g/dL (3.9-5) L 02/26/18 07:39 Albumin/Globulin Ratio 0.6 % 02/26/18 07:39 Lipase 35 units/L (13-60) 02/26/18 02:58 TSH 2.670 mlU/mL (0.270-4.200) 02/26/18 00:10 Free T4 1.26 ng/dL (0.76-1.46) 02/26/18 00:10 Urine Color [place] (Yellow) 02/26/18 00:32 Urine Turbidity Hazy (Clear) 02/26/18 00:32 Urine pH 5.0 (5.0-7.0) 02/26/18 00:32 Ur Specific [place] 1.015 (1.003-1.030) 02/26/18 00:32 Urine Protein <15 mg/dl mg/dL (Negative) 02/26/18 00:32 Urine Glucose (UA) Neg mg/dL (Negative) 02/26/18 00:32 Urine Ketones Neg mg/dL (Negative) 02/26/18 00:32 Urine Blood Neg (Negative) 02/26/18 00:32 Urine Nitrite Neg (Negative) 02/26/18 00:32 Urine Bilirubin Neg (Negative) 02/26/18 00:32 Urine Urobilinogen 4.0 mg/dL (<2.0) 02/26/18 00:32 Ur Leukocyte Esterase Neg (Negative) 02/26/18 00:32 Urine WBC (Auto) 1.0 /HPF (0.0-6.0) 02/26/18 00:32 Urine RBC (Auto) 1.0 /HPF (0.0-6.0) 02/26/18 00:32 U Epithel Cells (Auto) 1.0 /HPF (0-13.0) 02/26/18 00:32 Amorphous Crystals 3+ 02/26/18 00:32 Hyaline Casts 4 /LPF 02/26/18 00:32 Urine Mucus Few /HPF 02/26/18 00:32 Urine Creatinine 38.6 mg/dL (0.1-20.0) H 02/26/18 13:08 Urine Sodium 67 mmol/L 02/26/18 13:08
[2018-02-28] MEDS: LACTATED RINGERS 1,000 ML IV SCH (09:12)
[2018-02-28 09:27] LABS: Hematocrit 24.1 % (35.5-45.6); Hemoglobin 7.6 gm/dl (11.8-15.2); Mean Corpuscular HGB Conc 31 % (32-34); Mean Corpuscular Hemoglobin 29 pg (28-32); Mean Corpuscular Volume 92 fl (84-94); Platelet Count 257 K/mm3 (140-440); Red Blood Count 2.63 M/mm3 (3.65-5.03); Red Cell Distribution Width 17.4 % (13.2-15.2)
[2018-02-28 09:40] LABS: Calcium 7.6 mg/dL (8.4-10.2)
[2018-02-28 10:31] LABS: Total Cells Counted 100
[2018-02-28 10:32] LABS: Anisocytosis 1+; Band Neutrophils # (Manual) 0.2 K/mm3; Basophils % (Manual) 0 % (0.0-1.8); Burr Cells Few; Large Platelets Few; Ovalocytes 1+; Poikilocytosis 1+; Stomatocytes Few
--- NOTE | 2018-02-28 10:45 | XRay Report ---
AP CHEST: HISTORY: Left arm PICC placement There is mild rotation to left. A left arm PICC has been inserted which terminates in the right atrium. Consider retraction by 2.5 cm to the cavoatrial junction. The endotracheal tube remains in good position. Mild bilateral pulmonary infiltrates or pulmonary edema is stable. Trace left pleural effusion is suspected. Heart size is stable at the upper limits of normal. IMPRESSION: Left arm PICC as described.
[2018-02-28] MEDS: SODIUM CHLORIDE FLUSH SYRINGE 10 ML IV SCH ×2 (11:25→22:44)
[2018-02-28] MEDS: HEPARIN SUB-Q SCH ×2 (11:26→22:44)
[2018-02-28] MEDS: PEPCID IV SCH (11:26)
[2018-02-28] MEDS: KCL 10MEQ/100ML 10 MEQ/100 ML BAG IV SCH ×2 (11:28→12:53)
[2018-02-28] MEDS: ZYVOX 600MG/300ML 600 MG/300 ML BAG IV SCH ×2 (11:29→22:44)
[2018-02-28] MEDS: SODIUM CHLORIDE FLUSH SYRINGE 10 ML IV PRN (12:53)
[2018-02-28] MEDS ORDERED: SODIUM BICARBONATE FEEDTUBE PRN (14:41)
[2018-02-28] MEDS ORDERED: SIMPLE SYRUP FEEDTUBE PRN ×2 (14:41)
[2018-02-28] MEDS ORDERED: PANCREAZE DR 10,500 UNIT FEEDTUBE PRN (14:41)
--- NOTE | 2018-02-28 15:57 | Progress Note ---
Assessment and Plan Assessment: 1) Severe sepsis with septic shock: better, stil on levophed but minimal req, leukocytosis is up; source pneumonia 2) Multilobar pneumonia: due to MRSA and GAS 3) Acute respiratory failure: on the vent 4) Acute encephalopathy 5) DIANNA - better 6) History of CVA Plan: -continue zyvox IV D2 -continue zosyn for now - will stop soon -contact isolation -remove femoral central line and shrestha cath when possible Thanks Mimi Lay MD Subjective Date of service: 02/28/18 Principal diagnosis: Acute Hypoxemic Resp Failure; Severe Sepsis; Aspiration Pneumonai (HCAP) Interval history: Remains on the vent, levophed at 2, on fentanyl and propofol. Micro: Blood cx 02/26 ngtd Urine cx 02/26 neg Tracheal asp 02/26 MRSA and GAS x 2 Current Abx: zyvox 02/28 Previous Abx: zosyn vanco Objective - Exam Narrative Exam: Sedated on the vent NC/AT, ASH, OP with ETT, OGT Neck no LNs Lungs josh scattered rhonchi CV tachycardic Abd soft distended Ext +josh leg edema Neuro sedated Skin no rash Lines: shrestha and right fem TLC - Constitutional Vitals: Vital Signs Temp Pulse Resp BP Pulse Ox 99.6 F 103 H 17 92/57 107 H 02/28/18 15:45 02/28/18 15:15 02/28/18 15:00 02/28/18 15:15 02/28/18 15:15 Temperature -Last 24 Hours Temperature 99.6 F Temperature 99.3 F Temperature 98.5 F Temperature 99.6 F Temperature 99.6 F Temperature 98.3 F Temperature 98.6 F Temperature 98 F Temperature 100.1 F - Labs CBC & Chem 7: 02/28/18 09:00 02/28/18 09:00 Labs: Abnormal lab results 02/27/18 02/28/18 02/28/18 Range/Units 17:51 00:23 05:00 WBC (4.5-11.0) K/mm3 RBC (3.65-5.03) M/mm3 Hgb (11.8-15.2) gm/dl Hct (35.5-45.6) % MCHC (32-34) % RDW (13.2-15.2) % Seg Neuts % (Manual) (40.0-70.0) % Lymphocytes % (Manual) (13.4-35.0) % Seg Neutrophils # Man (1.8-7.7) K/mm3 Monocytes # (Manual) (0.0-0.8) K/mm3 POC ABG pH (7.35-7.45) POC ABG pCO2 (35-45) POC ABG pO2 (80-105) Potassium (3.6-5.0) mmol/L Carbon Dioxide (22-30) mmol/L BUN (9-20) mg/dL Creatinine (0.8-1.5) mg/dL Glucose (75-100) mg/dL POC Glucose 133 H 161 H (70-105) Lactic Acid 2.70 H* (0.7-2.0) mmol/L Calcium (8.4-10.2) mg/dL 02/28/18 02/28/18 02/28/18 Range/Units 05:02 05:28 07:04 WBC (4.5-11.0) K/mm3 RBC (3.65-5.03) M/mm3 Hgb (11.8-15.2) gm/dl Hct (35.5-45.6) % MCHC (32-34) % RDW (13.2-15.2) % Seg Neuts % (Manual) (40.0-70.0) % Lymphocytes % (Manual) (13.4-35.0) % Seg Neutrophils # Man (1.8-7.7) K/mm3 Monocytes # (Manual) (0.0-0.8) K/mm3 POC ABG pH 7.477 H (7.35-7.45) POC ABG pCO2 24.6 L (35-45) POC ABG pO2 57 L (80-105) Potassium (3.6-5.0) mmol/L Carbon Dioxide (22-30) mmol/L BUN (9-20) mg/dL Creatinine (0.8-1.5) mg/dL Glucose (75-100) mg/dL POC Glucose 116 H (70-105) Lactic Acid 3.10 H* (0.7-2.0) mmol/L Calcium (8.4-10.2) mg/dL 02/28/18 02/28/1818 Range/Units 09:00 09:00 11:36 WBC 22.3 H (4.5-11.0) K/mm3 RBC 2.63 L (3.65-5.03) M/mm3 Hgb 7.6 L (11.8-15.2) gm/dl Hct 24.1 L (35.5-45.6) % MCHC 31 L (32-34) % RDW 17.4 H (13.2-15.2) % Seg Neuts % (Manual) 84.0 H (40.0-70.0) % Lymphocytes % (Manual) 8.0 L (13.4-35.0) % Seg Neutrophils # Man 18.7 H (1.8-7.7) K/mm3 Monocytes # (Manual) 1.1 H (0.0-0.8) K/mm3 POC ABG pH (7.35-7.45) POC ABG pCO2 (35-45) POC ABG pO2 (80-105) Potassium 3.3 L (3.6-5.0) mmol/L Carbon Dioxide 21 L (22-30) mmol/L BUN 76 H (9-20) mg/dL Creatinine 2.8 H (0.8-1.5) mg/dL Glucose 104 H (75-100) mg/dL POC Glucose 107 H (70-105) Lactic Acid (0.7-2.0) mmol/L Calcium 7.6 L (8.4-10.2) mg/dL
[2018-02-28] MEDS: NACL 0.45% 1000 ML 1,000 ML IV SCH (16:52)
[2018-02-28 18:20] LABS: Calcium 7.3 mg/dL (8.4-10.2)
--- NOTE | 2018-03-01 05:33 | XRay Report ---
FINAL REPORT EXAM: XR CHEST 1V AP HISTORY: follow up respiratory failure TECHNIQUE: A portable upright view the chest was obtained and compared to the study of 02/28/2018. FINDINGS: The tip of the ET tube is 3.8 cm above the jose luis. The tip of the left-sided PICC line is in good position in the distal superior vena cava. The lungs remain congested with patchy airspace disease throughout the lower 2/3 of both lungs. Pleural effusions cannot be excluded. The heart is mildly enlarged. The bones and soft tissues otherwise are unchanged. IMPRESSION: Stable pulmonary congestion with bilateral airspace disease. Bilateral effusions noted. Overall appearance of the chest is unchanged from the previous study.
[2018-03-01] MEDS: NACL 0.45% 1000 ML 1,000 ML IV SCH ×2 (06:46→18:53)
[2018-03-01] MEDS: ZOSYN/NS 2.25 GM/50ML 2.25 GM/50 ML BAG IV SCH ×2 (08:55→15:57)
[2018-03-01] MEDS: ZYVOX 600MG/300ML 600 MG/300 ML BAG IV SCH (09:57)
[2018-03-01] MEDS: SODIUM BICARBONATE FEEDTUBE SCH ×2 (09:57→16:04)
[2018-03-01] MEDS: PEPCID PO SCH (09:58)
[2018-03-01] MEDS: HEPARIN SUB-Q SCH (09:58)
[2018-03-01] MEDS: SODIUM CHLORIDE FLUSH SYRINGE 10 ML IV SCH (10:00)
[2018-03-01] MEDS: TYLENOL FEEDTUBE PRN (10:02)
--- NOTE | 2018-03-01 11:23 | Progress Note ---
Assessment and Plan Severe sepsis with septic shock. Aspiration pneumonia, healthcare associated. Acute on chronic encephalopathy. Acute on chronic kidney injury. Anemia. Hypernatremia. Metabolic acidosis. Lactic acidosis. History of hypertension. History of diabetes. History of Alzheimer dementia. - continue full MVS for now - ETT repositioned appropriately - continue TV at 450mls and set rate to 12/min - daily SAT's and SBT's - continue bronchodilators with pulmonary hygiene per RT - continue to wean FiO2 for sats > 90% - addressing VAP bundle daily - continue to wean levophed for MAP > 65 mmHg (at 15 mics/min now) - continue free water flushes - strict I's & O's re: DIANNA and will leave shrestha catheter in place for now - gentle volume resuscitation - continue to trend CRP and lactate prn - continue enteral nutrition as tolerated - continue mobility protocol for pressure ulcer prophylaxis - continue GI & VTE prophylaxis - continue antibiotics empirically - ID evaluation ongoing - continue contact precautions as now 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 The aggregate critical care time was [35] minutes without overlap. Time includes spent on; [x] Data Review and interpretation [x] Patient assessment and monitoring of vital signs [x] Documentation [x] Medication orders and management Subjective Date of service: 03/01/18 Principal diagnosis: Acute Hypoxemic Resp Failure; Severe Sepsis; Aspiration Pneumonai (HCAP) Interval history: Patient is seen today for: Acute Hypoxemic Resp Failure; Severe Sepsis; Aspiration Pneumonai (HCAP) Seen and examined at bedside; 24hour events reviewed; nursing and respiratory care staff consulted; no adverse overnight events reported to me; remains on MVS ; remains hypotensive; AMS is persistent; no seizures; no emesis or overt aspiration Objective Vital Signs - 12hr 02/28/18 02/28/18 02/28/18 23:31 23:33 23:45 Temperature Pulse Rate 119 H 120 H 117 H Pulse Rate [ From Monitor] Respiratory 22 23 21 Rate Blood Pressure 94/67 94/67 94/67 O2 Sat by Pulse 92 93 94 Oximetry 03/01/18 03/01/18 03/01/18 00:00 00:15 00:20 Temperature 100.0 F H Pulse Rate 118 H 119 H 116 H Pulse Rate [ 120 H From Monitor] Respiratory 23 24 Rate Blood Pressure 95/63 95/63 95/63 O2 Sat by Pulse 94 96 95 Oximetry 03/01/18 03/01/18 03/01/18 00:30 00:45 01:00 Temperature Pulse Rate 117 H 115 H 112 H Pulse Rate [ From Monitor] Respiratory 22 21 24 Rate Blood Pressure 88/55 94/57 95/59 O2 Sat by Pulse 93 96 95 Oximetry 03/01/18 03/01/18 03/01/18 01:15 01:30 01:45 Temperature Pulse Rate 115 H 110 H 121 H Pulse Rate [ From Monitor] Respiratory 21 23 25 H Rate Blood Pressure 95/59 101/68 101/68 O2 Sat by Pulse 96 94 95 Oximetry 03/01/18 03/01/18 03/01/18 02:00 02:15 02:30 Temperature Pulse Rate 116 H 120 H 116 H Pulse Rate [ From Monitor] Respiratory 24 24 24 Rate Blood Pressure 101/71 101/71 95/62 O2 Sat by Pulse 93 94 94 Oximetry 03/01/18 03/01/18 03/01/18 02:45 03:00 03:15 Temperature Pulse Rate 117 H 120 H 120 H Pulse Rate [ From Monitor] Respiratory 22 20 24 Rate Blood Pressure 95/62 92/51 92/51 O2 Sat by Pulse 95 93 94 Oximetry 03/01/18 03/01/18 03/01/18 03:30 03:45 04:00 Temperature 99.8 F H Pulse Rate 116 H 114 H 112 H Pulse Rate [ 128 H From Monitor] Respiratory 23 22 22 Rate Blood Pressure 88/58 94/59 95/61 O2 Sat by Pulse 94 95 93 Oximetry 03/01/18 03/01/18 03/01/18 04:15 04:30 04:45 Temperature Pulse Rate 115 H 117 H 117 H Pulse Rate [ From Monitor] Respiratory 22 22 22 Rate Blood Pressure 95/61 99/64 99/64 O2 Sat by Pulse 95 94 96 Oximetry 03/01/18 03/01/18 03/01/18 05:00 05:15 05:30 Temperature Pulse Rate 116 H 116 H 119 H Pulse Rate [ From Monitor] Respiratory 21 20 22 Rate Blood Pressure 90/56 90/56 88/63 O2 Sat by Pulse 95 95 95 Oximetry 03/01/18 03/01/18 03/01/18 05:45 06:00 06:15 Temperature Pulse Rate 116 H 113 H 115 H Pulse Rate [ From Monitor] Respiratory 22 23 20 Rate Blood Pressure 88/63 98/67 98/67 O2 Sat by Pulse 95 93 96 Oximetry 03/01/18 03/01/18 03/01/18 06:30 06:45 07:00 Temperature Pulse Rate 117 H 128 H 125 H Pulse Rate [ From Monitor] Respiratory 20 25 H 23 Rate Blood Pressure 99/56 99/56 83/57 O2 Sat by Pulse 94 94 91 Oximetry 03/01/18 03/01/18 03/01/18 07:15 07:30 07:44 Temperature Pulse Rate 128 H 128 H 139 H Pulse Rate [ From Monitor] Respiratory 23 25 H Rate Blood Pressure 105/66 93/55 93/55 O2 Sat by Pulse 92 94 95 Oximetry 03/01/18 03/01/18 07:45 08:00 Temperature Pulse Rate 134 H 128 H Pulse Rate [ From Monitor] Respiratory 26 H 26 H Rate Blood Pressure 93/55 78/48 O2 Sat by Pulse 90 93 Oximetry Constitutional: appears uncomfortable, other (elderly looking AAM, normocephalic and atraumativ on MVS with increased respiratory effort) Eyes: icteric ENT: oropharynx moist, other (ETT 24 cm TERESA) Neck: supple, no lymphadenopathy, no JVD, other (no thyromegaly) Effort: mildly labored Ascultation: Bilateral: diminished breath sounds, rales Percussion: Bilateral: not dull Cardiovascular: regular rate and rhythm, other (No R/M) Gastrointestinal: normoactive bowel sounds, soft, non-tender, non-distended, other (+ PEG; No HSM) Integumentary: other (poor turgor) Extremities: no cyanosis, no edema, pulses normal, no ischemia or petechiae Neurologic: pupils equal and round, other (left hemiplegia) Psychiatric: other (unable to assess re: encephalopathy) CBC and BMP: 03/10/18 06:55 03/10/18 06:55 ABG, PT/INR, D-dimer: ABG POC ABG pH 7.542 (7.35-7.45) H 03/01/18 06:25 POC ABG pCO2 23.3 (35-45) L 03/01/18 06:25 POC ABG pO2 62 (80-105) L 03/01/18 06:25 POC ABG HCO3 20.0 03/01/18 06:25 POC ABG Total CO2 21 03/01/18 06:25 POC ABG O2 Sat 94 03/01/18 06:25 PT/INR, D-dimer PT 21.5 Sec. (12.2-14.9) H 02/26/18 20:50 INR 1.75 (0.87-1.13) H 02/26/18 20:50 Abnormal lab findings: Abnormal Labs 02/25/18 02/25/18 02/25/18 23:15 23:15 23:15 WBC 12.3 H RBC 3.56 L Hgb 10.2 L Hct 33.7 L MCV 95 H MCHC 30 L RDW 17.7 H Seg Neuts % (Manual) 35.0 L Lymphocytes % (Manual) 13.0 L Monocytes % (Manual) 8.0 H Nucleated RBC % Seg Neutrophils # Man Lymphocytes # (Manual) Monocytes # (Manual) 1.0 H PT 20.3 H INR 1.63 H POC ABG pH POC ABG pCO2 POC ABG pO2 Sodium 152 H Potassium Chloride 108.7 H Carbon Dioxide 18 L BUN 136 H Creatinine 5.2 H Glucose POC Glucose Lactic Acid Calcium 8.0 L Phosphorus Total Bilirubin 4.50 H AST 83 H C-Reactive Protein Albumin 2.7 L Urine Creatinine 02/25/18 02/25/18 02/26/18 23:15 23:30 03:06 WBC RBC Hgb Hct MCV MCHC RDW Seg Neuts % (Manual) Lymphocytes % (Manual) Monocytes % (Manual) Nucleated RBC % Seg Neutrophils # Man Lymphocytes # (Manual) Monocytes # (Manual) PT INR POC ABG pH POC ABG pCO2 25.2 L POC ABG pO2 69 L Sodium Potassium Chloride Carbon Dioxide BUN Creatinine Glucose POC Glucose Lactic Acid 7.00 H* 9.70 H* Calcium Phosphorus Total Bilirubin AST C-Reactive Protein Albumin Urine Creatinine 02/26/18 02/26/18 02/26/18 05:12 05:43 07:39 WBC 23.7 H RBC 3.27 L Hgb 9.3 L Hct 31.1 L MCV 95 H MCHC 30 L RDW 17.4 H Seg Neuts % (Manual) Lymphocytes % (Manual) 2.0 L Monocytes % (Manual) Nucleated RBC % 1.0 H Seg Neutrophils # Man 16.1 H Lymphocytes # (Manual) 0.5 L Monocytes # (Manual) 1.2 H PT INR POC ABG pH POC ABG pCO2 19.5 L POC ABG pO2 72 L Sodium Potassium Chloride Carbon Dioxide BUN Creatinine Glucose POC Glucose Lactic Acid 8.80 H* Calcium Phosphorus Total Bilirubin AST C-Reactive Protein Albumin Urine Creatinine 02/26/18 02/26/18 02/26/18 07:39 12:06 13:08 WBC RBC Hgb Hct MCV MCHC RDW Seg Neuts % (Manual) Lymphocytes % (Manual) Monocytes % (Manual) Nucleated RBC % Seg Neutrophils # Man Lymphocytes # (Manual) Monocytes # (Manual) PT INR POC ABG pH POC ABG pCO2 27.8 L POC ABG pO2 168 H Sodium 155 H Potassium Chloride 114.2 H Carbon Dioxide 14 L BUN 120 H Creatinine 4.6 H Glucose 108 H POC Glucose Lactic Acid Calcium 7.7 L Phosphorus Total Bilirubin 4.50 H AST 105 H C-Reactive Protein Albumin 2.4 L Urine Creatinine 38.6 H 02/26/18 02/26/18 02/26/18 18:41 20:50 20:50 WBC RBC Hgb Hct MCV MCHC RDW Seg Neuts % (Manual) Lymphocytes % (Manual) Monocytes % (Manual) Nucleated RBC % Seg Neutrophils # Man Lymphocytes # (Manual) Monocytes # (Manual) PT 21.5 H INR 1.75 H POC ABG pH POC ABG pCO2 POC ABG pO2 Sodium Potassium Chloride Carbon Dioxide BUN Creatinine Glucose POC Glucose 135 H Lactic Acid Calcium Phosphorus Total Bilirubin AST C-Reactive Protein 33.90 H Albumin Urine Creatinine 02/27/18 02/27/18 02/27/18 03:39 04:56 04:56 WBC 20.1 H RBC 2.92 L Hgb 8.4 L Hct 27.5 L MCV MCHC 31 L RDW 17.1 H Seg Neuts % (Manual) 92.0 H Lymphocytes % (Manual) 3.0 L Monocytes % (Manual) Nucleated RBC % Seg Neutrophils # Man 18.5 H Lymphocytes # (Manual) 0.6 L Monocytes # (Manual) PT INR POC ABG pH 7.453 H POC ABG pCO2 27.2 L POC ABG pO2 Sodium 149 H Potassium Chloride 113.1 H Carbon Dioxide 18 L BUN 103 H Creatinine 3.8 H Glucose 120 H POC Glucose Lactic Acid Calcium 7.8 L Phosphorus Total Bilirubin AST C-Reactive Protein Albumin Urine Creatinine 02/27/18 02/27/18 02/27/18 12:37 12:45 17:51 WBC RBC Hgb Hct MCV MCHC RDW Seg Neuts % (Manual) Lymphocytes % (Manual) Monocytes % (Manual) Nucleated RBC % Seg Neutrophils # Man Lymphocytes # (Manual) Monocytes # (Manual) PT INR POC ABG pH POC ABG pCO2 POC ABG pO2 Sodium Potassium Chloride Carbon Dioxide BUN Creatinine Glucose POC Glucose 169 H 133 H Lactic Acid 2.90 H* Calcium Phosphorus Total Bilirubin AST C-Reactive Protein Albumin Urine Creatinine 02/28/18 02/28/18 02/28/18 00:23 05:00 05:02 WBC RBC Hgb Hct MCV MCHC RDW Seg Neuts % (Manual) Lymphocytes % (Manual) Monocytes % (Manual) Nucleated RBC % Seg Neutrophils # Man Lymphocytes # (Manual) Monocytes # (Manual) PT INR POC ABG pH POC ABG pCO2 POC ABG pO2 Sodium Potassium Chloride Carbon Dioxide BUN Creatinine Glucose POC Glucose 161 H 116 H Lactic Acid 2.70 H* Calcium Phosphorus Total Bilirubin AST C-Reactive Protein Albumin Urine Creatinine 02/28/18 02/28/18 02/28/18 05:28 07:04 09:00 WBC 22.3 H RBC 2.63 L Hgb 7.6 L Hct 24.1 L MCV MCHC 31 L RDW 17.4 H Seg Neuts % (Manual) 84.0 H Lymphocytes % (Manual) 8.0 L Monocytes % (Manual) Nucleated RBC % Seg Neutrophils # Man 18.7 H Lymphocytes # (Manual) Monocytes # (Manual) 1.1 H PT INR POC ABG pH 7.477 H POC ABG pCO2 24.6 L POC ABG pO2 57 L Sodium Potassium Chloride Carbon Dioxide BUN Creatinine Glucose POC Glucose Lactic Acid 3.10 H* Calcium Phosphorus Total Bilirubin AST C-Reactive Protein Albumin Urine Creatinine 02/28/18 02/28/18 02/28/18 09:00 11:36 17:10 WBC RBC Hgb Hct MCV MCHC RDW Seg Neuts % (Manual) Lymphocytes % (Manual) Monocytes % (Manual) Nucleated RBC % Seg Neutrophils # Man Lymphocytes # (Manual) Monocytes # (Manual) PT INR POC ABG pH POC ABG pCO2 POC ABG pO2 Sodium Potassium 3.3 L 3.5 L Chloride Carbon Dioxide 21 L 19 L BUN 76 H 69 H Creatinine 2.8 H 2.5 H Glucose 104 H 124 H POC Glucose 107 H Lactic Acid Calcium 7.6 L 7.3 L Phosphorus 1.50 L Total Bilirubin AST C-Reactive Protein Albumin Urine Creatinine 02/28/18 02/28/18 03/01/18 17:36 23:40 06:25 WBC RBC Hgb Hct MCV MCHC RDW Seg Neuts % (Manual) Lymphocytes % (Manual) Monocytes % (Manual) Nucleated RBC % Seg Neutrophils # Man Lymphocytes # (Manual) Monocytes # (Manual) PT INR POC ABG pH 7.542 H POC ABG pCO2 23.3 L POC ABG pO2 62 L Sodium Potassium Chloride Carbon Dioxide BUN Creatinine Glucose POC Glucose 151 H 111 H Lactic Acid Calcium Phosphorus Total Bilirubin AST C-Reactive Protein Albumin Urine Creatinine Chest x-ray: image reviewed (left PICC line in place; persistent R>L basilar infiltrates; ETT in good position) Allied health notes reviewed: nursing
[2018-03-01 11:37] LABS: Calcium 7.5 mg/dL (8.4-10.2)
--- NOTE | 2018-03-01 11:46 | Progress Note ---
Assessment and Plan Impression: * Nonoliguric acute kidney injury secondary to prerenal azotemia/ATN due to dehydration vs sepsis --Baseline SCr 1.6-1.8mg/dL * Acute hypoxic respiratory failure * Sepsis * HCAP --sputum w/ MRSA, group A beta hemolytic strep * Hypernatremia secondary to dehydration - resolved * Metabolic acidosis secondary to lactic acidosis Plan: * Renal function is stable - no acute indication for dialysis today * Continue IVF * Replete lytes prn * Continue NaBicarb per NGT * Vent management per CCM * Broad spectrum abx * Dose medications for renal function * Avoid potential nephrotoxins Subjective Date of service: 03/01/18 Principal diagnosis: Acute Hypoxemic Resp Failure; Severe Sepsis; Aspiration Pneumonai (HCAP) Interval history: No acute events overnight. Objective - Vital Signs Vital signs: Vital Signs - 12hr 02/28/18 03/01/18 03/01/18 23:45 00:00 00:15 Temperature 100.0 F H Pulse Rate 117 H 118 H 119 H Pulse Rate [ 120 H From Monitor] Respiratory 21 23 24 Rate Blood Pressure 94/67 95/63 95/63 O2 Sat by Pulse 94 94 96 Oximetry 03/01/18 03/01/18 03/01/18 00:20 00:30 00:45 Temperature Pulse Rate 116 H 117 H 115 H Pulse Rate [ From Monitor] Respiratory 22 21 Rate Blood Pressure 95/63 88/55 94/57 O2 Sat by Pulse 95 93 96 Oximetry 03/01/18 03/01/18 03/01/18 01:00 01:15 01:30 Temperature Pulse Rate 112 H 115 H 110 H Pulse Rate [ From Monitor] Respiratory 24 21 23 Rate Blood Pressure 95/59 95/59 101/68 O2 Sat by Pulse 95 96 94 Oximetry 03/01/18 03/01/18 03/01/18 01:45 02:00 02:15 Temperature Pulse Rate 121 H 116 H 120 H Pulse Rate [ From Monitor] Respiratory 25 H 24 24 Rate Blood Pressure 101/68 101/71 101/71 O2 Sat by Pulse 95 93 94 Oximetry 03/01/18 03/01/18 03/01/18 02:30 02:45 03:00 Temperature Pulse Rate 116 H 117 H 120 H Pulse Rate [ From Monitor] Respiratory 24 22 20 Rate Blood Pressure 95/62 95/62 92/51 O2 Sat by Pulse 94 95 93 Oximetry 03/01/18 03/01/18 03/01/18 03:15 03:30 03:45 Temperature Pulse Rate 120 H 116 H 114 H Pulse Rate [ From Monitor] Respiratory 24 23 22 Rate Blood Pressure 92/51 88/58 94/59 O2 Sat by Pulse 94 94 95 Oximetry 03/01/1818 03/01/18 04:00 04:15 04:30 Temperature 99.8 F H Pulse Rate 112 H 115 H 117 H Pulse Rate [ 128 H From Monitor] Respiratory 22 22 22 Rate Blood Pressure 95/61 95/61 99/64 O2 Sat by Pulse 93 95 94 Oximetry 03/01/18 03/01/18 03/01/18 04:45 05:00 05:15 Temperature Pulse Rate 117 H 116 H 116 H Pulse Rate [ From Monitor] Respiratory 22 21 20 Rate Blood Pressure 99/64 90/56 90/56 O2 Sat by Pulse 96 95 95 Oximetry 03/01/18 03/01/18 03/01/18 05:30 05:45 06:00 Temperature Pulse Rate 119 H 116 H 113 H Pulse Rate [ From Monitor] Respiratory 22 22 23 Rate Blood Pressure 88/63 88/63 98/67 O2 Sat by Pulse 95 95 93 Oximetry 03/01/18 03/01/18 03/01/18 06:15 06:30 06:45 Temperature Pulse Rate 115 H 117 H 128 H Pulse Rate [ From Monitor] Respiratory 20 20 25 H Rate Blood Pressure 98/67 99/56 99/56 O2 Sat by Pulse 96 94 94 Oximetry 03/01/18 03/01/18 03/01/18 07:00 07:15 07:30 Temperature Pulse Rate 125 H 128 H 128 H Pulse Rate [ From Monitor] Respiratory 23 23 25 H Rate Blood Pressure 83/57 105/66 93/55 O2 Sat by Pulse 91 92 94 Oximetry 03/01/18 03/01/18 03/01/18 07:44 07:45 08:00 Temperature Pulse Rate 139 H 134 H 128 H Pulse Rate [ From Monitor] Respiratory 26 H 26 H Rate Blood Pressure 93/55 93/55 78/48 O2 Sat by Pulse 95 90 93 Oximetry 03/01/18 11:30 Temperature Pulse Rate 126 H Pulse Rate [ From Monitor] Respiratory Rate Blood Pressure 92/48 O2 Sat by Pulse 90 Oximetry - General Appearance General appearance: intubated EENT: ATNC, other (ETT in place) Respiratory: Present: Other (coarse breath sounds) Cardiology: regular, S1S2 Gastrointestinal: normal, no tenderness, no distended Integumentary: no rash Musculoskeletal: other (no edema) - Lab 02/28/18 09:00 03/01/18 10:00 Most recent lab results Calcium 7.5 mg/dL (8.4-10.2) L 03/01/18 10:00 Phosphorus 1.50 mg/dL (2.5-4.5) L 02/28/18 17:10 Magnesium 2.00 mg/dL (1.7-2.3) 02/28/18 17:10 Urine Creatinine 38.6 mg/dL (0.1-20.0) H 02/26/18 13:08 Urine Sodium 67 mmol/L 02/26/18 13:08
[2018-03-01] MEDS ORDERED: KPHOS 20 MMOL in NACL 0.9% 250ML 250 ML IV ONE (13:00)
[2018-03-01] MEDS ORDERED: D50W (25GM) Syringe IV PRN (13:10)
[2018-03-01] MEDS: LEVOPHED DRIP 4 MG/NS 250 ML 4 MG/250 ML BAG IV SCH (15:29)
--- NOTE | 2018-03-01 18:24 | Progress Note ---
Assessment and Plan Assessment: 1) Severe sepsis with septic shock: increased levophed at 10, leukocytosis is up , still fever; source pneumonia 2) Multilobar pneumonia: due to MRSA and GAS 3) Acute respiratory failure: on the vent 4) Acute encephalopathy 5) DIANNA - better 6) History of CVA Plan: -continue zyvox IV D3 -add penicillin G and Clindamycin IV in light of worsening septic shock and GAS -if not better in 1-2 days consider IVIG and repeat chest CT to eval for lung abscesses -stop zosyn -contact isolation -remove shrestha cath when possible Guarded prognosis I am rounding on 03/03 Thanks Mimi Lay MD Subjective Date of service: 03/01/18 Principal diagnosis: Acute Hypoxemic Resp Failure; Severe Sepsis; Aspiration Pneumonai (HCAP) Interval history: Remains on the vent CMV fiO2 40, p12, levophed at 10, on fentanyl and propofol. Micro: Blood cx 02/26 ngtd Urine cx 02/26 neg Tracheal asp 02/26 MRSA and GAS x 2 Current Abx: zyvox 02/28 Previous Abx: zosyn vanco Objective - Exam Narrative Exam: Sedated on the vent NC/AT, ASH, OP with ETT, OGT Neck no LNs Lungs josh scattered rhonchi CV tachycardic Abd soft distended Ext +josh leg edema Neuro sedated Skin no rash Lines: shrestha and right fem TLC - Constitutional Vitals: Vital Signs Temp Pulse Resp BP Pulse Ox 98.8 F 112 H 22 116/88 97 03/01/18 16:00 03/01/18 17:00 03/01/18 17:00 03/01/18 17:00 03/01/18 17:00 Temperature -Last 24 Hours Temperature 98.8 F Temperature 99.6 F Temperature 99.6 F Temperature 99.8 F Temperature 100.0 F Temperature 100.7 F - Labs CBC & Chem 7: 02/28/18 09:00 03/01/18 10:00 Labs: Abnormal lab results 02/28/18 02/28/18 03/01/18 Range/Units 17:10 23:40 06:25 POC ABG pH 7.542 H (7.35-7.45) POC ABG pCO2 23.3 L (35-45) POC ABG pO2 62 L (80-105) Potassium 3.5 L (3.6-5.0) mmol/L Carbon Dioxide 19 L (22-30) mmol/L BUN 69 H (9-20) mg/dL Creatinine 2.5 H (0.8-1.5) mg/dL Glucose 124 H (75-100) mg/dL POC Glucose 111 H (70-105) Calcium 7.3 L (8.4-10.2) mg/dL Phosphorus 1.50 L (2.5-4.5) mg/dL 03/01/18 03/01/18 Range/Units 10:00 12:12 POC ABG pH (7.35-7.45) POC ABG pCO2 (35-45) POC ABG pO2 (80-105) Potassium 3.5 L (3.6-5.0) mmol/L Carbon Dioxide 18 L (22-30) mmol/L BUN 66 H (9-20) mg/dL Creatinine 2.8 H (0.8-1.5) mg/dL Glucose 103 H (75-100) mg/dL POC Glucose 176 H (70-105) Calcium 7.5 L (8.4-10.2) mg/dL Phosphorus (2.5-4.5) mg/dL
--- NOTE | 2018-03-01 18:40 | Progress Note ---
Assessment and Plan Assessment and plan: 72-year-old male with history of cerebrovascular accident hemiplegia. Alzheimer's and nonverbal from [facility] sent for altered mental state. Since yesterday and high fever and increasing shortness of breath and respiratory distress. Patient's temperature was 103.2F in the initial evaluation in the emergency room. Patient was also severely tachypneic with respiratory rate of 40. Sudden onset. No exacerbating or relieving factors. Patient is a resident of care home facility. Septic Shock * started on vanco and zosyn Discontinued,zyvox started * follow cultures * continue isolation per ID * on pressors Acute Hypoxemic Respiratory Failure * Continues on mechanical ventilation >72HRS * Pulmonary following. * Aspiration precautions * IV solumedrol taper and Nebs Aspiration Pneumonia- Multilobar * Continue abx as noted above * Cultures showing MRSA, GAS * PCN AND CLINDAMYCIN ADDED * CONTACT ISOATION Acute Encephalopathy * patient with alzhimers disease Acute Kidney injury * Likely secondary to ATN * improved Sacral Pressure ulcer * wound care consult BPH * Continue Finasterid Hyperlipidemia * continue statin CVA PER HX-WITH LEFT SIDED HEMIPLEGIA * Complete immobility due to frailty per documentation ANEMIA * Of chronic disease, monitor closely DVT/GI prophy Discussed with son. Poor prognosis The high probability of a clinically significant, sudden or life threatening deterioration of the [PULMONARY] system(s) required my full and direct attention , intervention and personal management. The aggregate critical care time was [45 ] minutes. This time is in addition to time spent performing reported procedures but includes the following: [X] Data Review and interpretation [X] Patient assessment and monitoring of vital signs [X] Documentation [X] Medication orders and management History Interval history: Patient seen and examined, remains intubated and sedated, opens eyes to verbal stimuli but not following any commands. moves left side..Still with low bp Hospitalist Physical - Physical exam Narrative exam: General appearance: Present: no acute distress, severe distress, on mechanical ventilation - EENT Eyes: Present: PERRL ENT: hearing intact, clear oral mucosa - Neck Neck: Present: supple, normal ROM - Respiratory Respiratory effort: INTUBATED Respiratory: bilateral: rales, rhonchi - Cardiovascular Heart rate: 100 Rhythm: regular Heart Sounds: Present: S1 & S2. Absent: rub, click - Extremities Extremities: no ischemia, pulses intact, pulses symmetrical, No edema Peripheral Pulses: within normal limits - Abdominal General gastrointestinal: Present: soft, non-tender, non-distended, normal bowel sounds Male genitourinary: Present: normal - Rectal Rectal Exam: deferred - Integumentary Integumentary: Present: scaral pressure ulcer - Musculoskeletal Musculoskeletal: left sided weakness, generalized weakness, other - Psychiatric Psychiatric: other (severely altered sensorium) - Neurologic Neurologic: focal deficits, other (severely altered sensorium and nearly unresponsive) - Constitutional Vitals: Temp Pulse Resp BP Pulse Ox 98.8 F 112 H 22 116/88 97 03/01/18 16:00 03/01/18 17:00 03/01/18 17:00 03/01/18 17:00 03/01/18 17:00 General appearance: Present: no acute distress, severe distress, well-nourished Results - Labs CBC & Chem 7: 02/28/18 09:00 03/01/18 10:00 Labs: Laboratory Last Values WBC 22.3 K/mm3 (4.5-11.0) H 02/28/18 09:00 RBC 2.63 M/mm3 (3.65-5.03) L 02/28/18 09:00 Hgb 7.6 gm/dl (11.8-15.2) L 02/28/18 09:00 Hct 24.1 % (35.5-45.6) L 02/28/18 09:00 MCV 92 fl (84-94) 02/28/18 09:00 MCH 29 pg (28-32) 02/28/18 09:00 MCHC 31 % (32-34) L 02/28/18 09:00 RDW 17.4 % (13.2-15.2) H 02/28/18 09:00 Plt Count 257 K/mm3 (140-440) 02/28/18 09:00 Add Manual Diff Complete 02/28/18 09:00 Total Counted 100 02/28/18 09:00 Seg Neutrophils % Sulfonation Equipment Operator 02/26/18 07:39 Seg Neuts % (Manual) 84.0 % (40.0-70.0) H 02/28/18 09:00 Band Neutrophils % 1.0 % 02/28/18 09:00 Lymphocytes % (Manual) 8.0 % (13.4-35.0) L 02/28/18 09:00 Reactive Lymphs % (Man) 0 % 02/28/18 09:00 Monocytes % (Manual) 5.0 % (0.0-7.3) 02/28/18 09:00 Eosinophils % (Manual) 1.0 % (0.0-4.3) 02/28/18 09:00 Basophils % (Manual) 0 % (0.0-1.8) 02/28/18 09:00 Metamyelocytes % 1.0 % 02/28/18 09:00 Myelocytes % 0 % 02/28/18 09:00 Promyelocytes % 0 % 02/28/18 09:00 Blast Cells % 0 % 02/28/18 09:00 Nucleated RBC % Not Reportable 02/28/18 09:00 Seg Neutrophils # Man 18.7 K/mm3 (1.8-7.7) H 02/28/18 09:00 Band Neutrophils # 0.2 K/mm3 02/28/18 09:00 Lymphocytes # (Manual) 1.8 K/mm3 (1.2-5.4) 02/28/18 09:00 Abs React Lymphs (Man) 0.0 K/mm3 02/28/18 09:00 Monocytes # (Manual) 1.1 K/mm3 (0.0-0.8) H 02/28/18 09:00 Eosinophils # (Manual) 0.2 K/mm3 (0.0-0.4) 02/28/18 09:00 Basophils # (Manual) 0.0 K/mm3 (0.0-0.1) 02/28/18 09:00 Metamyelocytes # 0.2 K/mm3 02/28/18 09:00 Myelocytes # 0.0 K/mm3 02/28/18 09:00 Promyelocytes # 0.0 K/mm3 02/28/18 09:00 Blast Cells # 0.0 K/mm3 02/28/18 09:00 WBC Morphology Not Reportable 02/28/18 09:00 Hypersegmented Neuts Not Reportable 02/28/18 09:00 Hyposegmented Neuts Not Reportable 02/28/18 09:00 Hypogranular Neuts Not Reportable 02/28/18 09:00 Smudge Cells Not Reportable 02/28/18 09:00 Toxic Granulation Not Reportable 02/28/18 09:00 Toxic Vacuolation Not Reportable 02/28/18 09:00 Dohle Bodies Not Reportable 02/28/18 09:00 Pelger-Huet Anomaly Not Reportable 02/28/18 09:00 Erwin Rods Not Reportable 02/28/18 09:00 Platelet Estimate Appears normal 02/28/18 09:00 Clumped Platelets Not Reportable 02/28/18 09:00 Plt Clumps, EDTA Not Reportable 02/28/18 09:00 Large Platelets Few 02/28/18 09:00 Giant Platelets Not Reportable 02/28/18 09:00 Platelet Satelliting Not Reportable 02/28/18 09:00 Plt Morphology Comment Not Reportable 02/28/18 09:00 RBC Morphology Not Reportable 02/28/18 09:00 Dimorphic RBCs Not Reportable 02/28/18 09:00 Polychromasia Few 02/28/18 09:00 Hypochromasia Not Reportable 02/28/18 09:00 Poikilocytosis 1+ 02/28/18 09:00 Anisocytosis 1+ 02/28/18 09:00 Microcytosis Not Reportable 02/28/18 09:00 Macrocytosis Not Reportable 02/28/18 09:00 Spherocytes Not Reportable 02/28/18 09:00 Pappenheimer Bodies Not Reportable 02/28/18 09:00 Sickle Cells Not Reportable 02/28/18 09:00 Target Cells Not Reportable 02/28/18 09:00 Tear Drop Cells Not Reportable 02/28/18 09:00 Ovalocytes 1+ 02/28/18 09:00 Stomatocytes Few 02/28/18 09:00 Helmet Cells Not Reportable 02/28/18 09:00 [place] Bodies Not Reportable 02/28/18 09:00 [place] Rings Not Reportable 02/28/18 09:00 [place] Cells Few 02/28/18 09:00 Bite Cells Not Reportable 02/28/18 09:00 Crenated Cell Not Reportable 02/28/18 09:00 Elliptocytes Few 02/28/18 09:00 Acanthocytes (Spur) Not Reportable 02/28/18 09:00 Rouleaux Not Reportable 02/28/18 09:00 Hemoglobin C Crystals Not Reportable 02/28/18 09:00 Schistocytes Not Reportable 02/28/18 09:00 Malaria parasites Not Reportable 02/28/18 09:00 Aric Bodies Not Reportable 02/28/18 09:00 Hem Pathologist Commnt No 02/28/18 09:00 PT 21.5 Sec. (12.2-14.9) H 02/26/18 20:50 INR 1.75 (0.87-1.13) H 02/26/18 20:50 POC ABG pH 7.542 (7.35-7.45) H 03/01/18 06:25 POC ABG pCO2 23.3 (35-45) L 03/01/18 06:25 POC ABG pO2 62 (80-105) L 03/01/18 06:25 POC ABG HCO3 20.0 03/01/18 06:25 POC ABG Total CO2 21 03/01/18 06:25 POC ABG O2 Sat 94 03/01/18 06:25 POC ABG Base Excess -2 03/01/18 06:25 VBG pH 7.406 (7.320-7.420) 02/25/18 23:15 FiO2 40 % 03/01/18 06:25 Sodium 138 mmol/L (137-145) 03/01/18 10:00 Potassium 3.5 mmol/L (3.6-5.0) L 03/01/18 10:00 Chloride 102.8 mmol/L (98-107) 03/01/18 10:00 Carbon Dioxide 18 mmol/L (22-30) L 03/01/18 10:00 Anion Gap 21 mmol/L 03/01/18 10:00 BUN 66 mg/dL (9-20) H 03/01/18 10:00 Creatinine 2.8 mg/dL (0.8-1.5) H 03/01/18 10:00 Estimated GFR 27 ml/min 03/01/18 10:00 BUN/Creatinine Ratio 24 % 03/01/18 10:00 Glucose 103 mg/dL (75-100) H 03/01/18 10:00 POC Glucose 176 (70-105) H 03/01/18 12:12 Lactic Acid 3.10 mmol/L (0.7-2.0) H* 02/28/18 07:04 Calcium 7.5 mg/dL (8.4-10.2) L 03/01/18 10:00 Phosphorus 1.50 mg/dL (2.5-4.5) L 02/28/18 17:10 Magnesium 2.00 mg/dL (1.7-2.3) 02/28/18 17:10 Total Bilirubin 4.50 mg/dL (0.1-1.2) H 02/26/18 07:39 AST 105 units/L (5-40) H 02/26/18 07:39 ALT 48 units/L (7-56) 02/26/18 07:39 Alkaline Phosphatase 109 units/L (35-129) 02/26/18 07:39 C-Reactive Protein 33.90 mg/dL (0.00-1.30) H 02/26/18 20:50 Total Protein 6.4 g/dL (6.3-8.2) 02/26/18 07:39 Albumin 2.4 g/dL (3.9-5) L 02/26/18 07:39 Albumin/Globulin Ratio 0.6 % 02/26/18 07:39 Lipase 35 units/L (13-60) 02/26/18 02:58 TSH 2.670 mlU/mL (0.270-4.200) 02/26/18 00:10 Free T4 1.26 ng/dL (0.76-1.46) 02/26/18 00:10 Urine Color Lesley (Yellow) 02/26/18 00:32 Urine Turbidity Hazy (Clear) 02/26/18 00:32 Urine pH 5.0 (5.0-7.0) 02/26/18 00:32 Ur Specific [place] 1.015 (1.003-1.030) 02/26/18 00:32 Urine Protein <15 mg/dl mg/dL (Negative) 02/26/18 00:32 Urine Glucose (UA) Neg mg/dL (Negative) 02/26/18 00:32 Urine Ketones Neg mg/dL (Negative) 02/26/18 00:32 Urine Blood Neg (Negative) 02/26/18 00:32 Urine Nitrite Neg (Negative) 02/26/18 00:32 Urine Bilirubin Neg (Negative) 02/26/18 00:32 Urine Urobilinogen 4.0 mg/dL (<2.0) 02/26/18 00:32 Ur Leukocyte Esterase Neg (Negative) 02/26/18 00:32 Urine WBC (Auto) 1.0 /HPF (0.0-6.0) 02/26/18 00:32 Urine RBC (Auto) 1.0 /HPF (0.0-6.0) 02/26/18 00:32 U Epithel Cells (Auto) 1.0 /HPF (0-13.0) 02/26/18 00:32 Amorphous Crystals 3+ 02/26/18 00:32 Hyaline Casts 4 /LPF 02/26/18 00:32 Urine Mucus Few /HPF 02/26/18 00:32 Urine Creatinine 38.6 mg/dL (0.1-20.0) H 02/26/18 13:08 Urine Sodium 67 mmol/L 02/26/18 13:08
[2018-03-01] MEDS: HumuLIN R SUB-Q SCH (18:51)
[2018-03-01] MEDS: fentaNYL DRIP Premix 2,000 MCG/100 ML BAG IV SCH (21:00)
[2018-03-02] MEDS: PFIZERPEN IV SCH ×2 (00:17→10:27)
[2018-03-02] MEDS: CLEOCIN 600 MG/50 mL 600 MG/50 ML BAG IV SCH ×4 (01:14→23:07)
[2018-03-02] MEDS: ZYVOX 600MG/300ML 600 MG/300 ML BAG IV SCH ×3 (01:14→23:03)
[2018-03-02] MEDS: SODIUM CHLORIDE FLUSH SYRINGE 10 ML IV PRN (01:15)
[2018-03-02] MEDS: HEPARIN SUB-Q SCH ×3 (01:16→22:58)
[2018-03-02] MEDS: SODIUM CHLORIDE FLUSH SYRINGE 10 ML IV SCH ×2 (01:16→10:25)
[2018-03-02] MEDS: HumuLIN R SUB-Q SCH ×4 (01:16→17:31)
[2018-03-02] MEDS: SODIUM BICARBONATE FEEDTUBE SCH ×3 (01:20→14:17)
--- NOTE | 2018-03-02 02:41 | XRay Report ---
FINAL REPORT EXAM: XR CHEST 1V AP HISTORY: follow up respiratory failure TECHNIQUE: A portable upright view the chest was obtained and compared to the study of 03/01/2018. FINDINGS: The tip of the ET tube is 5.6 cm above the jose luis. The left-sided PICC line tip is in good position in the superior vena cava. The heart is mildly enlarged. The lungs remain congested. There is stable with patchy airspace disease in both lower lobes. There are small effusions. There are EKG leads overlying the chest wall. The bones and soft tissues otherwise are unchanged. IMPRESSION: Stable pulmonary congestion with airspace disease particularly in the lower lobes. Small effusions noted also.
[2018-03-02] MEDS: PFIZERPEN 4 MIL.UNITS in NACL 0.9% 50 ML IV SCH ×5 (03:44→17:40)
[2018-03-02] MEDS: LEVOPHED DRIP 4 MG/NS 250 ML 4 MG/250 ML BAG IV SCH ×3 (05:48→18:51)
[2018-03-02] MEDS: NACL 0.45% 1000 ML 1,000 ML IV SCH ×2 (05:49→17:35)
[2018-03-02 06:42] LABS: Hematocrit 22.6 % (35.5-45.6); Hemoglobin 7.2 gm/dl (11.8-15.2); Mean Corpuscular HGB Conc 32 % (32-34); Mean Corpuscular Hemoglobin 30 pg (28-32); Mean Corpuscular Volume 93 fl (84-94); Platelet Count 219 K/mm3 (140-440); Red Blood Count 2.43 M/mm3 (3.65-5.03); Red Cell Distribution Width 17.6 % (13.2-15.2)
[2018-03-02 06:58] LABS: Calcium 7.2 mg/dL (8.4-10.2)
--- NOTE | 2018-03-02 08:27 | Progress Note ---
Assessment and Plan Severe sepsis with septic shock. Aspiration pneumonia, healthcare associated. Acute hypoxemic respiratory failure on MVS Acute on chronic encephalopathy. Acute on chronic kidney injury. Anemia. Hypernatremia. Metabolic acidosis. Lactic acidosis. History of hypertension. History of diabetes. History of Alzheimer dementia. - continue full MVS for now - initiate SAT's and SBT's tomorrow -change vasopressor to dopamine in view of bradycardia -discuss with renal need for ROOM ATTENDANTS, as his renal function is worsening and the arrythmias are probably related to his metabolic/electrolyte derangement - continue bronchodilators with pulmonary hygiene per RT - continue to wean FiO2 for sats > 90% - addressing VAP bundle daily - continue to wean levophed for MAP > 65 mmHg - continue free water flushes - strict I's & O's re: DIANNA and will leave shrestha catheter in place for now, especially with worsening renal function - volume resuscitate. Once hemodynamically normal and off vasopressor support, initiate volume restrictive strategies - trend CRP and lactate prn - continue enteral nutrition as tolerated - continue mobility protocol for pressure ulcer prophylaxis - continue GI & VTE prophylaxis - continue antibiotics deescalate an adjust based oon culture results and MICAELA - ID consult notes reviewed - contact precautions - MRSA from trach aspirate - continue other care per attending / other consultants The high probability of a clinically significant, sudden or life threatening deterioration of the [cardiac, respiratory and GI] system(s) required my full and direct attention, intervention and personal management. The aggregate critical care time was [35] minutes without overlap. Time includes spent on; [x] Data Review and interpretation [x] Patient assessment and monitoring of vital signs [x] Documentation [x] Medication orders and management Subjective Date of service: 03/02/18 Principal diagnosis: Acute Hypoxemic Resp Failure; Severe Sepsis; Aspiration Pneumonai (HCAP) Interval history: Seen and examined. Vitals, labs, medications, chart and imaging reviewed. On going bradycardia with ongoing need for vasopressor suppport. Continues to remain critically ill on full ventilatory and on going vasopressor support. Discussed with RT and RN at the bedside Discussed during IDT-ICU rounds Objective Vital Signs - 12hr 03/01/18 03/01/18 03/01/18 20:30 20:46 20:57 Temperature Pulse Rate 128 H 125 H 128 H Pulse Rate [ From Monitor] Pulse Rate [ Left Dorsalis Pedis] Respiratory 23 22 Rate Blood Pressure 105/77 105/77 104/68 O2 Sat by Pulse 96 97 96 Oximetry 03/01/18 03/01/18 03/01/18 21:00 21:16 21:30 Temperature Pulse Rate 132 H 127 H 130 H Pulse Rate [ From Monitor] Pulse Rate [ Left Dorsalis Pedis] Respiratory 22 21 23 Rate Blood Pressure 104/68 104/68 101/77 O2 Sat by Pulse 96 96 94 Oximetry 03/01/18 03/01/18 03/01/18 21:46 22:00 22:16 Temperature Pulse Rate 124 H 128 H 131 H Pulse Rate [ From Monitor] Pulse Rate [ Left Dorsalis Pedis] Respiratory 23 23 25 H Rate Blood Pressure 101/77 104/67 104/67 O2 Sat by Pulse 95 95 96 Oximetry 03/01/18 03/01/18 03/01/18 22:30 22:46 23:00 Temperature Pulse Rate 132 H 143 H 147 H Pulse Rate [ From Monitor] Pulse Rate [ Left Dorsalis Pedis] Respiratory 23 30 H 29 H Rate Blood Pressure 105/75 105/75 105/75 O2 Sat by Pulse 95 95 95 Oximetry 03/01/18 03/01/18 03/01/18 23:16 23:30 23:46 Temperature Pulse Rate 141 H 137 H 137 H Pulse Rate [ From Monitor] Pulse Rate [ Left Dorsalis Pedis] Respiratory 27 H 27 H 26 H Rate Blood Pressure 114/65 98/60 98/60 O2 Sat by Pulse 95 93 96 Oximetry 03/01/18 03/02/18 03/02/18 23:54 00:00 00:16 Temperature 99.7 F H Pulse Rate 129 H 128 H Pulse Rate [ From Monitor] Pulse Rate [ Left Dorsalis Pedis] Respiratory 26 H 26 H Rate Blood Pressure 106/23 98/60 O2 Sat by Pulse 94 97 Oximetry 03/02/18 03/02/18 03/02/18 00:30 00:46 01:00 Temperature Pulse Rate 128 H 131 H 127 H Pulse Rate [ From Monitor] Pulse Rate [ Left Dorsalis Pedis] Respiratory 26 H 27 H 26 H Rate Blood Pressure 98/60 106/23 92/48 O2 Sat by Pulse 97 97 95 Oximetry 03/02/18 03/02/18 03/02/18 01:16 01:30 01:46 Temperature Pulse Rate 129 H 126 H 128 H Pulse Rate [ From Monitor] Pulse Rate [ Left Dorsalis Pedis] Respiratory 26 H 26 H 26 H Rate Blood Pressure 89/54 95/56 95/56 O2 Sat by Pulse 98 96 97 Oximetry 03/02/18 03/02/18 03/02/18 02:00 02:16 02:30 Temperature Pulse Rate 128 H 127 H 132 H Pulse Rate [ From Monitor] Pulse Rate [ Left Dorsalis Pedis] Respiratory 27 H 26 H 28 H Rate Blood Pressure 88/50 92/48 93/55 O2 Sat by Pulse 96 96 93 Oximetry 03/02/18 03/02/18 03/02/18 02:46 03:00 03:16 Temperature Pulse Rate 130 H 139 H 137 H Pulse Rate [ From Monitor] Pulse Rate [ Left Dorsalis Pedis] Respiratory 27 H 28 H 29 H Rate Blood Pressure 93/55 99/62 93/55 O2 Sat by Pulse 96 94 96 Oximetry 03/02/18 03/02/18 03/02/18 03:30 03:46 04:00 Temperature 99.1 F Pulse Rate 136 H 136 H 138 H Pulse Rate [ From Monitor] Pulse Rate [ Left Dorsalis Pedis] Respiratory 29 H 27 H 28 H Rate Blood Pressure 102/66 99/62 97/66 O2 Sat by Pulse 94 96 95 Oximetry 03/02/18 03/02/18 03/02/18 04:16 04:30 04:46 Temperature Pulse Rate 138 H 131 H 129 H Pulse Rate [ From Monitor] Pulse Rate [ Left Dorsalis Pedis] Respiratory 28 H 25 H 23 Rate Blood Pressure 102/66 88/56 97/66 O2 Sat by Pulse 96 94 97 Oximetry 03/02/18 03/02/18 03/02/18 04:50 05:00 05:16 Temperature Pulse Rate 128 H 127 H Pulse Rate [ From Monitor] Pulse Rate [ Left Dorsalis Pedis] Respiratory 22 Rate Blood Pressure 97/60 97/60 97/60 O2 Sat by Pulse 98 97 98 Oximetry 03/02/18 03/02/18 03/02/18 05:30 05:46 06:00 Temperature Pulse Rate 130 H 123 H 119 H Pulse Rate [ From Monitor] Pulse Rate [ Left Dorsalis Pedis] Respiratory 21 20 37 H Rate Blood Pressure 97/60 86/55 93/57 O2 Sat by Pulse 95 96 99 Oximetry 03/02/18 03/02/18 03/02/18 06:16 06:30 06:46 Temperature Pulse Rate 119 H 121 H 119 H Pulse Rate [ From Monitor] Pulse Rate [ Left Dorsalis Pedis] Respiratory 25 H 18 20 Rate Blood Pressure 93/57 87/57 87/57 O2 Sat by Pulse 99 98 98 Oximetry 03/02/18 03/02/18 03/02/18 07:00 07:16 07:30 Temperature Pulse Rate 120 H 120 H 121 H Pulse Rate [ From Monitor] Pulse Rate [ Left Dorsalis Pedis] Respiratory 25 H 18 36 H Rate Blood Pressure 94/59 94/59 98/64 O2 Sat by Pulse 97 98 96 Oximetry 03/02/18 03/02/18 03/02/18 07:46 07:54 08:00 Temperature 100.0 F H Pulse Rate 123 H 121 H Pulse Rate [ 121 H From Monitor] Pulse Rate [ 121 H Left Dorsalis Pedis] Respiratory 29 H 20 Rate Blood Pressure 98/64 98/64 96/62 O2 Sat by Pulse 97 97 98 Oximetry Constitutional: appears uncomfortable, other (elderly looking AAM, normocephalic and atraumativ on MVS with increased respiratory effort) Eyes: icteric ENT: oropharynx moist, other (ETT 24 cm TERESA) Neck: supple, no lymphadenopathy, no JVD, other (no thyromegaly) Effort: mildly labored Ascultation: Bilateral: diminished breath sounds, rales Percussion: Bilateral: not dull Cardiovascular: regular rate and rhythm, other (No R/M) Gastrointestinal: normoactive bowel sounds, soft, non-tender, non-distended, other (+ PEG; No HSM) Integumentary: other (poor turgor) Extremities: no cyanosis, no edema, pulses normal, no ischemia or petechiae Neurologic: pupils equal and round, other (left hemiplegia) Psychiatric: other (unable to assess re: encephalopathy) CBC and BMP: 03/03/18 06:15 03/03/18 06:15 ABG, PT/INR, D-dimer: ABG POC ABG pH 7.473 (7.35-7.45) H 03/02/18 05:21 POC ABG pCO2 21.5 (35-45) L 03/02/18 05:21 POC ABG pO2 79 (80-105) L 03/02/18 05:21 POC ABG HCO3 15.8 03/02/18 05:21 POC ABG Total CO2 16 03/02/18 05:21 POC ABG O2 Sat 97 03/02/18 05:21 PT/INR, D-dimer PT 21.5 Sec. (12.2-14.9) H 02/26/18 20:50 INR 1.75 (0.87-1.13) H 02/26/18 20:50 Abnormal lab findings: Abnormal Labs 02/25/18 02/25/18 02/25/18 23:15 23:15 23:15 WBC 12.3 H RBC 3.56 L Hgb 10.2 L Hct 33.7 L MCV 95 H MCHC 30 L RDW 17.7 H Seg Neuts % (Manual) 35.0 L Lymphocytes % (Manual) 13.0 L Monocytes % (Manual) 8.0 H Nucleated RBC % Seg Neutrophils # Man Lymphocytes # (Manual) Monocytes # (Manual) 1.0 H PT 20.3 H INR 1.63 H POC ABG pH POC ABG pCO2 POC ABG pO2 Sodium 152 H Potassium Chloride 108.7 H Carbon Dioxide 18 L BUN 136 H Creatinine 5.2 H Glucose POC Glucose Lactic Acid Calcium 8.0 L Phosphorus Total Bilirubin 4.50 H AST 83 H C-Reactive Protein Albumin 2.7 L Urine Creatinine 02/25/18 02/25/18 02/26/18 23:15 23:30 03:06 WBC RBC Hgb Hct MCV MCHC RDW Seg Neuts % (Manual) Lymphocytes % (Manual) Monocytes % (Manual) Nucleated RBC % Seg Neutrophils # Man Lymphocytes # (Manual) Monocytes # (Manual) PT INR POC ABG pH POC ABG pCO2 25.2 L POC ABG pO2 69 L Sodium Potassium Chloride Carbon Dioxide BUN Creatinine Glucose POC Glucose Lactic Acid 7.00 H* 9.70 H* Calcium Phosphorus Total Bilirubin AST C-Reactive Protein Albumin Urine Creatinine 02/26/18 02/26/18 02/26/18 05:12 05:43 07:39 WBC 23.7 H RBC 3.27 L Hgb 9.3 L Hct 31.1 L MCV 95 H MCHC 30 L RDW 17.4 H Seg Neuts % (Manual) Lymphocytes % (Manual) 2.0 L Monocytes % (Manual) Nucleated RBC % 1.0 H Seg Neutrophils # Man 16.1 H Lymphocytes # (Manual) 0.5 L Monocytes # (Manual) 1.2 H PT INR POC ABG pH POC ABG pCO2 19.5 L POC ABG pO2 72 L Sodium Potassium Chloride Carbon Dioxide BUN Creatinine Glucose POC Glucose Lactic Acid 8.80 H* Calcium Phosphorus Total Bilirubin AST C-Reactive Protein Albumin Urine Creatinine 02/26/18 02/26/18 02/26/18 07:39 12:06 13:08 WBC RBC Hgb Hct MCV MCHC RDW Seg Neuts % (Manual) Lymphocytes % (Manual) Monocytes % (Manual) Nucleated RBC % Seg Neutrophils # Man Lymphocytes # (Manual) Monocytes # (Manual) PT INR POC ABG pH POC ABG pCO2 27.8 L POC ABG pO2 168 H Sodium 155 H Potassium Chloride 114.2 H Carbon Dioxide 14 L BUN 120 H Creatinine 4.6 H Glucose 108 H POC Glucose Lactic Acid Calcium 7.7 L Phosphorus Total Bilirubin 4.50 H AST 105 H C-Reactive Protein Albumin 2.4 L Urine Creatinine 38.6 H 02/26/18 02/26/18 02/26/18 18:41 20:50 20:50 WBC RBC Hgb Hct MCV MCHC RDW Seg Neuts % (Manual) Lymphocytes % (Manual) Monocytes % (Manual) Nucleated RBC % Seg Neutrophils # Man Lymphocytes # (Manual) Monocytes # (Manual) PT 21.5 H INR 1.75 H POC ABG pH POC ABG pCO2 POC ABG pO2 Sodium Potassium Chloride Carbon Dioxide BUN Creatinine Glucose POC Glucose 135 H Lactic Acid Calcium Phosphorus Total Bilirubin AST C-Reactive Protein 33.90 H Albumin Urine Creatinine 02/27/18 02/27/18 02/27/18 03:39 04:56 04:56 WBC 20.1 H RBC 2.92 L Hgb 8.4 L Hct 27.5 L MCV MCHC 31 L RDW 17.1 H Seg Neuts % (Manual) 92.0 H Lymphocytes % (Manual) 3.0 L Monocytes % (Manual) Nucleated RBC % Seg Neutrophils # Man 18.5 H Lymphocytes # (Manual) 0.6 L Monocytes # (Manual) PT INR POC ABG pH 7.453 H POC ABG pCO2 27.2 L POC ABG pO2 Sodium 149 H Potassium Chloride 113.1 H Carbon Dioxide 18 L BUN 103 H Creatinine 3.8 H Glucose 120 H POC Glucose Lactic Acid Calcium 7.8 L Phosphorus Total Bilirubin AST C-Reactive Protein Albumin Urine Creatinine 02/27/18 02/27/18 02/27/18 12:37 12:45 17:51 WBC RBC Hgb Hct MCV MCHC RDW Seg Neuts % (Manual) Lymphocytes % (Manual) Monocytes % (Manual) Nucleated RBC % Seg Neutrophils # Man Lymphocytes # (Manual) Monocytes # (Manual) PT INR POC ABG pH POC ABG pCO2 POC ABG pO2 Sodium Potassium Chloride Carbon Dioxide BUN Creatinine Glucose POC Glucose 169 H 133 H Lactic Acid 2.90 H* Calcium Phosphorus Total Bilirubin AST C-Reactive Protein Albumin Urine Creatinine 02/28/18 02/28/18 02/28/18 00:23 05:00 05:02 WBC RBC Hgb Hct MCV MCHC RDW Seg Neuts % (Manual) Lymphocytes % (Manual) Monocytes % (Manual) Nucleated RBC % Seg Neutrophils # Man Lymphocytes # (Manual) Monocytes # (Manual) PT INR POC ABG pH POC ABG pCO2 POC ABG pO2 Sodium Potassium Chloride Carbon Dioxide BUN Creatinine Glucose POC Glucose 161 H 116 H Lactic Acid 2.70 H* Calcium Phosphorus Total Bilirubin AST C-Reactive Protein Albumin Urine Creatinine 02/28/18 02/28/18 02/28/18 05:28 07:04 09:00 WBC 22.3 H RBC 2.63 L Hgb 7.6 L Hct 24.1 L MCV MCHC 31 L RDW 17.4 H Seg Neuts % (Manual) 84.0 H Lymphocytes % (Manual) 8.0 L Monocytes % (Manual) Nucleated RBC % Seg Neutrophils # Man 18.7 H Lymphocytes # (Manual) Monocytes # (Manual) 1.1 H PT INR POC ABG pH 7.477 H POC ABG pCO2 24.6 L POC ABG pO2 57 L Sodium Potassium Chloride Carbon Dioxide BUN Creatinine Glucose POC Glucose Lactic Acid 3.10 H* Calcium Phosphorus Total Bilirubin AST C-Reactive Protein Albumin Urine Creatinine 02/28/18 02/28/18 02/28/18 09:00 11:36 17:10 WBC RBC Hgb Hct MCV MCHC RDW Seg Neuts % (Manual) Lymphocytes % (Manual) Monocytes % (Manual) Nucleated RBC % Seg Neutrophils # Man Lymphocytes # (Manual) Monocytes # (Manual) PT INR POC ABG pH POC ABG pCO2 POC ABG pO2 Sodium Potassium 3.3 L 3.5 L Chloride Carbon Dioxide 21 L 19 L BUN 76 H 69 H Creatinine 2.8 H 2.5 H Glucose 104 H 124 H POC Glucose 107 H Lactic Acid Calcium 7.6 L 7.3 L Phosphorus 1.50 L Total Bilirubin AST C-Reactive Protein Albumin Urine Creatinine 02/28/18 02/28/18 03/01/18 17:36 23:40 06:25 WBC RBC Hgb Hct MCV MCHC RDW Seg Neuts % (Manual) Lymphocytes % (Manual) Monocytes % (Manual) Nucleated RBC % Seg Neutrophils # Man Lymphocytes # (Manual) Monocytes # (Manual) PT INR POC ABG pH 7.542 H POC ABG pCO2 23.3 L POC ABG pO2 62 L Sodium Potassium Chloride Carbon Dioxide BUN Creatinine Glucose POC Glucose 151 H 111 H Lactic Acid Calcium Phosphorus Total Bilirubin AST C-Reactive Protein Albumin Urine Creatinine 03/01/18 03/01/18 03/02/18 10:00 12:12 05:21 WBC RBC Hgb Hct MCV MCHC RDW Seg Neuts % (Manual) Lymphocytes % (Manual) Monocytes % (Manual) Nucleated RBC % Seg Neutrophils # Man Lymphocytes # (Manual) Monocytes # (Manual) PT INR POC ABG pH 7.473 H POC ABG pCO2 21.5 L POC ABG pO2 79 L Sodium Potassium 3.5 L Chloride Carbon Dioxide 18 L BUN 66 H Creatinine 2.8 H Glucose 103 H POC Glucose 176 H Lactic Acid Calcium 7.5 L Phosphorus Total Bilirubin AST C-Reactive Protein Albumin Urine Creatinine 03/02/18 03/02/18 06:00 06:00 WBC 18.2 H RBC 2.43 L Hgb 7.2 L Hct 22.6 L MCV MCHC RDW 17.6 H Seg Neuts % (Manual) Lymphocytes % (Manual) Monocytes % (Manual) Nucleated RBC % Seg Neutrophils # Man Lymphocytes # (Manual) Monocytes # (Manual) PT INR POC ABG pH POC ABG pCO2 POC ABG pO2 Sodium Potassium Chloride Carbon Dioxide 17 L BUN 68 H Creatinine 3.1 H Glucose 106 H POC Glucose Lactic Acid Calcium 7.2 L Phosphorus Total Bilirubin AST C-Reactive Protein Albumin Urine Creatinine Chest x-ray: image reviewed Allied health notes reviewed: RT (intra-arterial line)
[2018-03-02] MEDS: PEPCID PO SCH (10:20)
[2018-03-02] MEDS: fentaNYL DRIP Premix 2,000 MCG/100 ML BAG IV SCH (10:30)
--- NOTE | 2018-03-02 10:45 | Progress Note ---
Assessment and Plan Impression: * Nonoliguric acute kidney injury secondary to prerenal azotemia/ATN due to dehydration vs sepsis --Baseline SCr 1.6-1.8mg/dL * Acute hypoxic respiratory failure * Sepsis * HCAP --sputum w/ MRSA, group A beta hemolytic strep * Hypernatremia secondary to dehydration - resolved * Metabolic acidosis secondary to lactic acidosis Plan: * Bolus 500ml NS * Continue IVF * Patient may require addition of pressor - MAP is borderline * Hb 7.2, declining - consider transfusion of pRBC * Replete lytes prn * Continue NaBicarb per NGT * Vent management per CCM * Broad spectrum abx * Dose medications for renal function * Avoid potential nephrotoxins Subjective Date of service: 03/02/18 Principal diagnosis: Acute Hypoxemic Resp Failure; Severe Sepsis; Aspiration Pneumonai (HCAP) Interval history: No acute events overnight Objective - Vital Signs Vital signs: Vital Signs - 12hr 03/01/18 03/01/18 03/01/18 22:46 23:00 23:16 Temperature Pulse Rate 143 H 147 H 141 H Pulse Rate [ From Monitor] Pulse Rate [ Left Dorsalis Pedis] Respiratory 30 H 29 H 27 H Rate Blood Pressure 105/75 105/75 114/65 O2 Sat by Pulse 95 95 95 Oximetry 03/01/18 03/01/18 03/01/18 23:30 23:46 23:54 Temperature 99.7 F H Pulse Rate 137 H 137 H Pulse Rate [ From Monitor] Pulse Rate [ Left Dorsalis Pedis] Respiratory 27 H 26 H Rate Blood Pressure 98/60 98/60 O2 Sat by Pulse 93 96 Oximetry 03/02/18 03/02/18 03/02/18 00:00 00:16 00:30 Temperature Pulse Rate 129 H 128 H 128 H Pulse Rate [ 125 H From Monitor] Pulse Rate [ 123 H Left Dorsalis Pedis] Respiratory 20 26 H 26 H Rate Blood Pressure 106/23 98/60 98/60 O2 Sat by Pulse 97 97 97 Oximetry 03/02/18 03/02/18 03/02/18 00:46 01:00 01:16 Temperature Pulse Rate 131 H 127 H 129 H Pulse Rate [ From Monitor] Pulse Rate [ Left Dorsalis Pedis] Respiratory 27 H 26 H 26 H Rate Blood Pressure 106/23 92/48 89/54 O2 Sat by Pulse 97 95 98 Oximetry 03/02/18 03/02/18 03/02/18 01:30 01:46 02:00 Temperature Pulse Rate 126 H 128 H 128 H Pulse Rate [ From Monitor] Pulse Rate [ Left Dorsalis Pedis] Respiratory 26 H 26 H 27 H Rate Blood Pressure 95/56 95/56 88/50 O2 Sat by Pulse 96 97 96 Oximetry 03/02/18 03/02/18 03/02/18 02:16 02:30 02:46 Temperature Pulse Rate 127 H 132 H 130 H Pulse Rate [ From Monitor] Pulse Rate [ Left Dorsalis Pedis] Respiratory 26 H 28 H 27 H Rate Blood Pressure 92/48 93/55 93/55 O2 Sat by Pulse 96 93 96 Oximetry 03/02/18 03/02/18 03/02/18 03:00 03:16 03:30 Temperature Pulse Rate 139 H 137 H 136 H Pulse Rate [ From Monitor] Pulse Rate [ Left Dorsalis Pedis] Respiratory 28 H 29 H 29 H Rate Blood Pressure 99/62 93/55 102/66 O2 Sat by Pulse 94 96 94 Oximetry 03/02/18 03/02/18 03/02/18 03:46 04:00 04:16 Temperature 99.1 F Pulse Rate 136 H 138 H 138 H Pulse Rate [ 118 H From Monitor] Pulse Rate [ 118 H Left Dorsalis Pedis] Respiratory 27 H 20 28 H Rate Blood Pressure 99/62 97/66 102/66 O2 Sat by Pulse 96 97 96 Oximetry 03/02/18 03/02/18 03/02/18 04:30 04:46 04:50 Temperature Pulse Rate 131 H 129 H 128 H Pulse Rate [ From Monitor] Pulse Rate [ Left Dorsalis Pedis] Respiratory 25 H 23 Rate Blood Pressure 88/56 97/66 97/60 O2 Sat by Pulse 94 97 98 Oximetry 03/02/18 03/02/18 03/02/18 05:00 05:16 05:30 Temperature Pulse Rate 127 H 130 H Pulse Rate [ From Monitor] Pulse Rate [ Left Dorsalis Pedis] Respiratory 22 21 Rate Blood Pressure 97/60 97/60 97/60 O2 Sat by Pulse 97 98 95 Oximetry 03/02/18 03/02/18 03/02/18 05:46 06:00 06:16 Temperature Pulse Rate 123 H 119 H 119 H Pulse Rate [ From Monitor] Pulse Rate [ Left Dorsalis Pedis] Respiratory 20 37 H 25 H Rate Blood Pressure 86/55 93/57 93/57 O2 Sat by Pulse 96 99 99 Oximetry 03/02/18 03/02/18 03/02/18 06:30 06:46 07:00 Temperature Pulse Rate 121 H 119 H 120 H Pulse Rate [ From Monitor] Pulse Rate [ Left Dorsalis Pedis] Respiratory 18 20 25 H Rate Blood Pressure 87/57 87/57 94/59 O2 Sat by Pulse 98 98 97 Oximetry 03/02/18 03/02/18 03/02/18 07:16 07:30 07:46 Temperature Pulse Rate 120 H 121 H 123 H Pulse Rate [ From Monitor] Pulse Rate [ Left Dorsalis Pedis] Respiratory 18 36 H 29 H Rate Blood Pressure 94/59 98/64 98/64 O2 Sat by Pulse 98 96 97 Oximetry 03/02/18 03/02/18 07:54 08:00 Temperature 100.0 F H Pulse Rate 121 H Pulse Rate [ 121 H From Monitor] Pulse Rate [ 121 H Left Dorsalis Pedis] Respiratory 20 Rate Blood Pressure 98/64 96/62 O2 Sat by Pulse 97 98 Oximetry - General Appearance General appearance: intubated EENT: ATNC, other (ETT in place) Respiratory: Present: Other (coarse breath sounds) Cardiology: tachycardia, S1S2 Gastrointestinal: normal, no distended Integumentary: no rash, warm and dry Musculoskeletal: other (no edema) - Lab 03/02/18 06:00 03/02/18 06:00 Most recent lab results Calcium 7.2 mg/dL (8.4-10.2) L 03/02/18 06:00 Phosphorus 1.50 mg/dL (2.5-4.5) L 02/28/18 17:10 Magnesium 2.00 mg/dL (1.7-2.3) 02/28/18 17:10 Urine Creatinine 38.6 mg/dL (0.1-20.0) H 02/26/18 13:08 Urine Sodium 67 mmol/L 02/26/18 13:08
[2018-03-02] MEDS ORDERED: NACL 0.9% 500 ML 500 ML IV ONE (11:30)
--- NOTE | 2018-03-02 21:51 | Progress Note ---
Assessment and Plan - Patient Problems (1) Sacral decubitus ulcer, stage III Current Visit: Yes Status: Acute Plan to address problem: 10 units local wound care. We'll be difficult to heal now in face of severe sepsis and continued to supply nutritional support and local wound care (2) Acute hypoxemic respiratory failure Current Visit: Yes Status: Acute Plan to address problem: Patient remains hypoxic unable to wean this particular time most likely secondary to sepsis and shock. Continue pressor support vent support. (3) Acute on chronic renal failure Current Visit: Yes Status: Acute Qualifiers: Acute renal failure type: unspecified Chronic kidney disease stage: unspecified stage Qualified Code(s): N17.9 - Acute kidney failure, unspecified ; N18.9 - Chronic kidney disease, unspecified Plan to address problem: BUN/creatinine 60 over 3.1. Minimal improvement nephrology following. (4) Pneumonia Current Visit: Yes Status: Acute Qualifiers: Pneumonia type: due to unspecified organism Laterality: left Lung location: lower lobe of lung Qualified Code(s): J18.1 - Lobar pneumonia, unspecified organism Plan to address problem: As likely etiology for acute respiratory failure pneumonia aspiration versus pneumonia. Patient also has evidence of MRSA patients on Clinda Zyvox and penicillin. WBC count remains 18. Fever curve appears to be downtrending somewhat. (5) Septic shock Current Visit: Yes Status: Acute (6) Hypertension Current Visit: Yes Status: Chronic Qualifiers: Hypertension type: essential hypertension Qualified Code(s): I10 - Essential (primary) hypertension History Interval history: Remains intubated and sedated unable to follow commands. Hospitalist Physical - Constitutional Vitals: Temp Pulse Resp BP Pulse Ox 100.1 F H 121 H 17 104/64 99 03/02/18 16:00 03/02/18 19:35 03/02/18 18:30 03/02/18 19:35 03/02/18 19:35 General appearance: Present: no acute distress, severe distress, well-nourished - EENT Eyes: Present: EOM intact ENT: hearing intact - Respiratory Respiratory effort: normal Respiratory: bilateral: CTA, diminished, rhonchi - Cardiovascular Rhythm: other (echocardiogram) - Extremities Extremities: no ischemia, pulses intact Extremity abnormal: edema Peripheral Pulses: within normal limits - Abdominal General gastrointestinal: soft, non-tender, hypoactive bowel sounds, other ( lightly distended) - Integumentary Integumentary: Present: clear, warm, dry - Psychiatric Psychiatric: other (cephalopathic) Results - Labs CBC & Chem 7: 03/02/18 06:00 03/02/18 06:00 Labs: Laboratory Last Values WBC 18.2 K/mm3 (4.5-11.0) H 03/02/18 06:00 RBC 2.43 M/mm3 (3.65-5.03) L 03/02/18 06:00 Hgb 7.2 gm/dl (11.8-15.2) L 03/02/18 06:00 Hct 22.6 % (35.5-45.6) L 03/02/18 06:00 MCV 93 fl (84-94) 03/02/18 06:00 MCH 30 pg (28-32) 03/02/18 06:00 MCHC 32 % (32-34) 03/02/18 06:00 RDW 17.6 % (13.2-15.2) H 03/02/18 06:00 Plt Count 219 K/mm3 (140-440) 03/02/18 06:00 Add Manual Diff Complete 02/28/18 09:00 Total Counted 100 02/28/18 09:00 Seg Neutrophils % Fur Grader 02/26/18 07:39 Seg Neuts % (Manual) 84.0 % (40.0-70.0) H 02/28/18 09:00 Band Neutrophils % 1.0 % 02/28/18 09:00 Lymphocytes % (Manual) 8.0 % (13.4-35.0) L 02/28/18 09:00 Reactive Lymphs % (Man) 0 % 02/28/18 09:00 Monocytes % (Manual) 5.0 % (0.0-7.3) 02/28/18 09:00 Eosinophils % (Manual) 1.0 % (0.0-4.3) 02/28/18 09:00 Basophils % (Manual) 0 % (0.0-1.8) 02/28/18 09:00 Metamyelocytes % 1.0 % 02/28/18 09:00 Myelocytes % 0 % 02/28/18 09:00 Promyelocytes % 0 % 02/28/18 09:00 Blast Cells % 0 % 02/28/18 09:00 Nucleated RBC % Not Reportable 02/28/18 09:00 Seg Neutrophils # Man 18.7 K/mm3 (1.8-7.7) H 02/28/18 09:00 Band Neutrophils # 0.2 K/mm3 02/28/18 09:00 Lymphocytes # (Manual) 1.8 K/mm3 (1.2-5.4) 02/28/18 09:00 Abs React Lymphs (Man) 0.0 K/mm3 02/28/18 09:00 Monocytes # (Manual) 1.1 K/mm3 (0.0-0.8) H 02/28/18 09:00 Eosinophils # (Manual) 0.2 K/mm3 (0.0-0.4) 02/28/18 09:00 Basophils # (Manual) 0.0 K/mm3 (0.0-0.1) 02/28/18 09:00 Metamyelocytes # 0.2 K/mm3 02/28/18 09:00 Myelocytes # 0.0 K/mm3 02/28/18 09:00 Promyelocytes # 0.0 K/mm3 02/28/18 09:00 Blast Cells # 0.0 K/mm3 02/28/18 09:00 WBC Morphology Not Reportable 02/28/18 09:00 Hypersegmented Neuts Not Reportable 02/28/18 09:00 Hyposegmented Neuts Not Reportable 02/28/18 09:00 Hypogranular Neuts Not Reportable 02/28/18 09:00 Smudge Cells Not Reportable 02/28/18 09:00 Toxic Granulation Not Reportable 02/28/18 09:00 Toxic Vacuolation Not Reportable 02/28/18 09:00 Dohle Bodies Not Reportable 02/28/18 09:00 Pelger-Huet Anomaly Not Reportable 02/28/18 09:00 Erwin Rods Not Reportable 02/28/18 09:00 Platelet Estimate Appears normal 02/28/18 09:00 Clumped Platelets Not Reportable 02/28/18 09:00 Plt Clumps, EDTA Not Reportable 02/28/18 09:00 Large Platelets Few 02/28/18 09:00 Giant Platelets Not Reportable 02/28/18 09:00 Platelet Satelliting Not Reportable 02/28/18 09:00 Plt Morphology Comment Not Reportable 02/28/18 09:00 RBC Morphology Not Reportable 02/28/18 09:00 Dimorphic RBCs Not Reportable 02/28/18 09:00 Polychromasia Few 02/28/18 09:00 Hypochromasia Not Reportable 02/28/18 09:00 Poikilocytosis 1+ 02/28/18 09:00 Anisocytosis 1+ 02/28/18 09:00 Microcytosis Not Reportable 02/28/18 09:00 Macrocytosis Not Reportable 02/28/18 09:00 Spherocytes Not Reportable 02/28/18 09:00 Pappenheimer Bodies Not Reportable 02/28/18 09:00 Sickle Cells Not Reportable 02/28/18 09:00 Target Cells Not Reportable 02/28/18 09:00 Tear Drop Cells Not Reportable 02/28/18 09:00 Ovalocytes 1+ 02/28/18 09:00 Stomatocytes Few 02/28/18 09:00 Helmet Cells Not Reportable 02/28/18 09:00 [place] Bodies Not Reportable 02/28/18 09:00 [place] Rings Not Reportable 02/28/18 09:00 [place] Cells Few 02/28/18 09:00 Bite Cells Not Reportable 02/28/18 09:00 Crenated Cell Not Reportable 02/28/18 09:00 Elliptocytes Few 02/28/18 09:00 Acanthocytes (Spur) Not Reportable 02/28/18 09:00 Rouleaux Not Reportable 02/28/18 09:00 Hemoglobin C Crystals Not Reportable 02/28/18 09:00 Schistocytes Not Reportable 02/28/18 09:00 Malaria parasites Not Reportable 02/28/18 09:00 Aric Bodies Not Reportable 02/28/18 09:00 Hem Pathologist Commnt No 02/28/18 09:00 PT 21.5 Sec. (12.2-14.9) H 02/26/18 20:50 INR 1.75 (0.87-1.13) H 02/26/18 20:50 POC ABG pH 7.473 (7.35-7.45) H 03/02/18 05:21 POC ABG pCO2 21.5 (35-45) L 03/02/18 05:21 POC ABG pO2 79 (80-105) L 03/02/18 05:21 POC ABG HCO3 15.8 03/02/18 05:21 POC ABG Total CO2 16 03/02/18 05:21 POC ABG O2 Sat 97 03/02/18 05:21 POC ABG Base Excess -8 03/02/18 05:21 VBG pH 7.406 (7.320-7.420) 02/25/18 23:15 FiO2 40 % 03/02/18 05:21 Sodium 138 mmol/L (137-145) 03/02/18 06:00 Potassium 3.6 mmol/L (3.6-5.0) 03/02/18 06:00 Chloride 101.3 mmol/L (98-107) 03/02/18 06:00 Carbon Dioxide 17 mmol/L (22-30) L 03/02/18 06:00 Anion Gap 23 mmol/L 03/02/18 06:00 BUN 68 mg/dL (9-20) H 03/02/18 06:00 Creatinine 3.1 mg/dL (0.8-1.5) H 03/02/18 06:00 Estimated GFR 24 ml/min 03/02/18 06:00 BUN/Creatinine Ratio 22 % 03/02/18 06:00 Glucose 106 mg/dL (75-100) H 03/02/18 06:00 POC Glucose 109 (70-105) H 03/02/18 17:35 Lactic Acid 3.10 mmol/L (0.7-2.0) H* 02/28/18 07:04 Calcium 7.2 mg/dL (8.4-10.2) L 03/02/18 06:00 Phosphorus 1.50 mg/dL (2.5-4.5) L 02/28/18 17:10 Magnesium 2.00 mg/dL (1.7-2.3) 02/28/18 17:10 Total Bilirubin 4.50 mg/dL (0.1-1.2) H 02/26/18 07:39 AST 105 units/L (5-40) H 02/26/18 07:39 ALT 48 units/L (7-56) 02/26/18 07:39 Alkaline Phosphatase 109 units/L (35-129) 02/26/18 07:39 C-Reactive Protein 33.90 mg/dL (0.00-1.30) H 02/26/18 20:50 Total Protein 6.4 g/dL (6.3-8.2) 02/26/18 07:39 Albumin 2.4 g/dL (3.9-5) L 02/26/18 07:39 Albumin/Globulin Ratio 0.6 % 02/26/18 07:39 Lipase 35 units/L (13-60) 02/26/18 02:58 TSH 2.670 mlU/mL (0.270-4.200) 02/26/18 00:10 Free T4 1.26 ng/dL (0.76-1.46) 02/26/18 00:10 Urine Color Lesley (Yellow) 02/26/18 00:32 Urine Turbidity Hazy (Clear) 02/26/18 00:32 Urine pH 5.0 (5.0-7.0) 02/26/18 00:32 Ur Specific [place] 1.015 (1.003-1.030) 02/26/18 00:32 Urine Protein <15 mg/dl mg/dL (Negative) 02/26/18 00:32 Urine Glucose (UA) Neg mg/dL (Negative) 02/26/18 00:32 Urine Ketones Neg mg/dL (Negative) 02/26/18 00:32 Urine Blood Neg (Negative) 02/26/18 00:32 Urine Nitrite Neg (Negative) 02/26/18 00:32 Urine Bilirubin Neg (Negative) 02/26/18 00:32 Urine Urobilinogen 4.0 mg/dL (<2.0) 02/26/18 00:32 Ur Leukocyte Esterase Neg (Negative) 02/26/18 00:32 Urine WBC (Auto) 1.0 /HPF (0.0-6.0) 02/26/18 00:32 Urine RBC (Auto) 1.0 /HPF (0.0-6.0) 02/26/18 00:32 U Epithel Cells (Auto) 1.0 /HPF (0-13.0) 18 00:32 Amorphous Crystals 3+ 02/26/18 00:32 Hyaline Casts 4 /LPF 02/26/18 00:32 Urine Mucus Few /HPF 02/26/18 00:32 Urine Creatinine 38.6 mg/dL (0.1-20.0) H 02/26/18 13:08 Urine Sodium 67 mmol/L 02/26/18 13:08
--- NOTE | 2018-03-03 02:37 | XRay Report ---
FINAL REPORT EXAM: XR CHEST 1V AP HISTORY: follow up respiratory failure TECHNIQUE: A portable upright view the chest was obtained and compared to the study of 03/02/2018. FINDINGS: The tip of the ET tube is 3.8 cm above the jose luis. The tip of the left-sided PICC line is in good position in the superior vena cava. The lungs remain congested. There patchy airspace disease in both lung bases along with small effusions. This is unchanged. The heart size is normal. The bones and soft tissues otherwise are unchanged. IMPRESSION: Stable pulmonary vascular congestion with bilateral airspace disease particularly in the lung bases. Stable small effusions.
[2018-03-03] MEDS: NACL 0.45% 1000 ML 1,000 ML IV SCH (04:47)
[2018-03-03] MEDS: PFIZERPEN 4 MIL.UNITS in NACL 0.9% 50 ML IV SCH ×5 (04:50→23:01)
[2018-03-03] MEDS: LEVOPHED DRIP 4 MG/NS 250 ML 4 MG/250 ML BAG IV SCH ×3 (04:53→19:21)
[2018-03-03] MEDS: SODIUM BICARBONATE FEEDTUBE SCH ×4 (05:12→20:18)
[2018-03-03] MEDS: HumuLIN R SUB-Q SCH ×4 (05:21→19:13)
[2018-03-03] MEDS: SODIUM CHLORIDE FLUSH SYRINGE 10 ML IV SCH ×2 (05:24→11:35)
[2018-03-03] MEDS: CLEOCIN 600 MG/50 mL 600 MG/50 ML BAG IV SCH ×4 (05:25→23:12)
[2018-03-03] MEDS ORDERED: SODIUM BICARBONATE IV ONE (07:45)
[2018-03-03] MEDS ORDERED: ADRENALIN ONE (07:45)
[2018-03-03] MEDS ORDERED: CALCIUM CHLORIDE IV ONE (07:45)
[2018-03-03] MEDS ORDERED: XYLOCAINE CARDIAC IV ONE (07:45)
--- NOTE | 2018-03-03 08:16 | Progress Note ---
Assessment and Plan 72-year-old male with history of cerebrovascular accident hemiplegia. Alzheimer's and nonverbal from [facility] sent for altered mental state. Since yesterday and high fever and increasing shortness of breath and respiratory distress. Patient's temperature was 103.2F in the initial evaluation in the emergency room. Patient was also severely tachypneic with respiratory rate of 40. Sudden onset. No exacerbating or relieving factors. Patient is a resident of halfway facility. 03/03: Went into cardiopulmonary arrest. Resuscitated according to ACLS protocol and commenced on IV Levophed for hypotension Septic Shock * started on vanco and zosyn Discontinued, Zyvox started * Blood Cx negative Tracheal aspirate positive for MRSA * continue isolation per ID * on pressors Cardiopulmonary arrest * Resuscitated according to ACLS protocol * Commenced on Levophed drip for hypotension Acute Hypoxemic Respiratory Failure * Continues on mechanical ventilation >72HRS * Pulmonary following. * Aspiration precautions * IV solumedrol taper and Nebs Aspiration Pneumonia- Multilobar * Continue abx as noted above * Cultures showing MRSA, GAS * PCN AND CLINDAMYCIN ADDED * CONTACT ISOATION Acute Encephalopathy * patient with alzhimers disease Acute Kidney injury * Likely secondary to ATN * improved Sacral Pressure ulcer * wound care consult BPH * Continue Finasterid Hyperlipidemia * continue statin CVA PER HX-WITH LEFT SIDED HEMIPLEGIA * Complete immobility due to frailty per documentation ANEMIA * Of chronic disease, monitor closely DVT/GI prophy Discussed with son. Poor prognosis The high probability of a clinically significant, sudden or life threatening deterioration of the [PULMONARY] system(s) required my full and direct attention , intervention and personal management. The aggregate critical care time was [45 ] minutes. This time is in addition to time spent performing reported procedures but includes the following: [X] Data Review and interpretation [X] Patient assessment and monitoring of vital signs [X] Documentation [X] Medication orders and management Subjective Date of service: 03/03/18 Principal diagnosis: Acute Hypoxemic Resp Failure; Severe Sepsis; Aspiration Pneumonai (HCAP) Interval history: Patent seen and examined. Patient said to have gone into the cardiopulmonary arrest. Code was called. Resuscitated according to ACLS protocol. Pt still on the vent. Objective - Exam Narrative Exam: Constitutional: Emaciated, intubated and on mechanical ventilation Head: Normocephalic atraumatic Eyes: Pupils are equal round and reactive to light Nose: No enlarged turbinates, no septal deviation. Mouth: Moist mucous membranes. Neck: Supple no thyromegaly. No bruit. No JVD Heart: Regular rate and rhythm, S1-S2 abnormal. No rubs murmurs or gallop Lungs: Clear to auscultation bilaterally no rales or rhonchi Abdomen: Soft, nontender. Bowel sound are present. Extremities: No edema no cyanosis and no clubbing. Neuro: Alert oriented Oriented x3. No focal sensory or motor deficit. Skin: No rashes no hyperemic spots Psychiatry: Euthymic. Calm. - Constitutional Vitals: Vital Signs - 12hr 03/02/18 03/02/18 03/02/18 20:30 20:45 21:00 Temperature Pulse Rate 121 H 121 H 118 H Pulse Rate [ From Monitor] Pulse Rate [ Left Dorsalis Pedis] Respiratory 17 17 18 Rate Blood Pressure 104/69 100/72 114/70 O2 Sat by Pulse 97 Oximetry 03/02/18 03/02/18 03/02/18 21:15 21:30 21:45 Temperature Pulse Rate 114 H 119 H 121 H Pulse Rate [ From Monitor] Pulse Rate [ Left Dorsalis Pedis] Respiratory 14 15 17 Rate Blood Pressure 103/72 96/66 105/68 O2 Sat by Pulse Oximetry 03/02/18 03/02/18 03/02/18 22:00 22:15 22:30 Temperature Pulse Rate 123 H 121 H 133 H Pulse Rate [ 122 H From Monitor] Pulse Rate [ 122 H Left Dorsalis Pedis] Respiratory 16 16 15 Rate Blood Pressure 115/73 110/68 118/64 O2 Sat by Pulse 97 96 97 Oximetry 03/02/18 03/02/18 03/02/18 22:45 23:00 23:16 Temperature Pulse Rate 150 H 126 H 127 H Pulse Rate [ From Monitor] Pulse Rate [ Left Dorsalis Pedis] Respiratory 21 19 21 Rate Blood Pressure 125/60 125/60 88/52 O2 Sat by Pulse 96 97 96 Oximetry 03/02/18 03/02/18 03/02/18 23:30 23:33 23:45 Temperature Pulse Rate 128 H 128 H 136 H Pulse Rate [ From Monitor] Pulse Rate [ Left Dorsalis Pedis] Respiratory 21 20 Rate Blood Pressure 90/53 91/84 84/52 O2 Sat by Pulse 100 99 100 Oximetry 03/03/18 03/03/18 03/03/18 00:00 00:15 00:30 Temperature 100.3 F H Pulse Rate 122 H 120 H 118 H Pulse Rate [ 122 H From Monitor] Pulse Rate [ 125 H Left Dorsalis Pedis] Respiratory 19 20 18 Rate Blood Pressure 92/50 87/55 88/53 O2 Sat by Pulse 100 99 99 Oximetry 03/03/18 03/03/18 03/03/18 00:45 01:00 01:15 Temperature Pulse Rate 122 H 122 H 126 H Pulse Rate [ From Monitor] Pulse Rate [ Left Dorsalis Pedis] Respiratory 20 18 21 Rate Blood Pressure 92/56 98/55 101/63 O2 Sat by Pulse 100 100 100 Oximetry 03/03/18 03/03/18 03/03/18 01:30 01:46 02:00 Temperature Pulse Rate 123 H 134 H 144 H Pulse Rate [ 134 H From Monitor] Pulse Rate [ 135 H Left Dorsalis Pedis] Respiratory 19 23 29 H Rate Blood Pressure 92/56 102/54 102/54 O2 Sat by Pulse 100 100 98 Oximetry 03/03/18 03/03/18 03/03/18 02:15 02:30 02:45 Temperature Pulse Rate 136 H 131 H 133 H Pulse Rate [ From Monitor] Pulse Rate [ Left Dorsalis Pedis] Respiratory 20 19 18 Rate Blood Pressure 106/70 95/59 91/49 O2 Sat by Pulse 96 96 96 Oximetry 03/03/18 03/03/18 03/03/18 02:52 03:32 07:50 Temperature 98 F Pulse Rate 127 H 122 H Pulse Rate [ From Monitor] Pulse Rate [ Left Dorsalis Pedis] Respiratory Rate Blood Pressure 90/54 113/61 O2 Sat by Pulse 99 100 Oximetry 03/03/18 08:00 Temperature 99.8 F H Pulse Rate Pulse Rate [ From Monitor] Pulse Rate [ Left Dorsalis Pedis] Respiratory Rate Blood Pressure O2 Sat by Pulse Oximetry - Labs CBC & Chem 7: 03/03/18 06:15 03/03/18 06:15 Labs: Abnormal lab results 03/02/18 03/02/18 03/03/18 Range/Units 11:47 17:35 00:54 POC ABG pH (7.35-7.45) POC ABG pCO2 (35-45) Sodium (137-145) mmol/L Chloride (98-107) mmol/L Carbon Dioxide (22-30) mmol/L BUN (9-20) mg/dL Creatinine (0.8-1.5) mg/dL POC Glucose 136 H 109 H 131 H (70-105) Calcium (8.4-10.2) mg/dL 03/03/18 03/03/18 Range/Units 03:38 06:15 POC ABG pH 7.451 H (7.35-7.45) POC ABG pCO2 20.5 L (35-45) Sodium 130 L D (137-145) mmol/L Chloride 96.4 L (98-107) mmol/L Carbon Dioxide 14 L (22-30) mmol/L BUN 69 H (9-20) mg/dL Creatinine 3.1 H (0.8-1.5) mg/dL POC Glucose (70-105) Calcium 7.0 L (8.4-10.2) mg/dL
--- NOTE | 2018-03-03 08:16 | Event Note ---
Date: 03/03/18 Code Chay called. I was first Hospitalist to respond because I was the closest doctor to patient. Chest compressions had begun. Patient already intubated. I was told by nursing that patient dante down and lost his pulse. I gave him epi, stopped sedation, iv calcium and 1 amp of bicarb and pulse was restored. Labs reviewed. I updated Speech Language Pathologist, Dr. Brown and handed off patient to attending , Dr. Hardin at nursing station. CCT [id number]
[2018-03-03 09:29] LABS: Hematocrit 20.8 % (35.5-45.6); Hemoglobin 6.3 gm/dl (11.8-15.2); Mean Corpuscular HGB Conc 30 % (32-34); Mean Corpuscular Hemoglobin 29 pg (28-32); Mean Corpuscular Volume 95 fl (84-94); Platelet Count 241 K/mm3 (140-440); Red Cell Distribution Width 17.8 % (13.2-15.2)
[2018-03-03] MEDS: ZYVOX 600MG/300ML 600 MG/300 ML BAG IV SCH ×2 (09:30→23:01)
[2018-03-03] MEDS: PEPCID PO SCH (09:31)
[2018-03-03] MEDS: HEPARIN SUB-Q SCH ×2 (09:31→23:02)
[2018-03-03] MEDS ORDERED: NACL 0.9% 500 ML 500 ML IV ONE (10:15)
[2018-03-03 10:26] LABS: Anisocytosis 1+; Band Neutrophils # (Manual) 2.1 K/mm3; Basophils % (Manual) 0 % (0.0-1.8); Platelet Estimate Consistent w Auto; Total Cells Counted 100
--- NOTE | 2018-03-03 11:36 | Progress Note ---
Assessment and Plan Severe sepsis with septic shock. Aspiration pneumonia, healthcare associated. Acute on chronic encephalopathy. Acute on chronic kidney injury. Anemia. Hypernatremia. Metabolic acidosis. Lactic acidosis. History of hypertension. History of diabetes. History of Alzheimer dementia. - continue full MVS for now - continue TV at 450mls and set rate to 12/min - resume daily SAT's and SBT's - continue bronchodilators with pulmonary hygiene per RT - continue to wean FiO2 for sats > 90% - addressing VAP bundle daily - continue to wean levophed for MAP > 65 mmHg - continue free water flushes - strict I's & O's re: DIANNA and will leave shrestha catheter in place for now - further azotemia management per clinical phlebotomist - continue volume resuscitation - continue to trend CRP and lactate prn - continue enteral nutrition as tolerated - continue mobility protocol for pressure ulcer prophylaxis - continue GI & VTE prophylaxis - continue antibiotics; on vancomycin for MRSA pneumonia and following other cultures - ID evaluation ongoing - continue contact precautions as now 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 The aggregate critical care time was [35] minutes without overlap. Time includes spent on; [x] Data Review and interpretation [x] Patient assessment and monitoring of vital signs [x] Documentation [x] Medication orders and management Subjective Date of service: 03/03/18 Principal diagnosis: Acute Hypoxemic Resp Failure; Severe Sepsis; Aspiration Pneumonai (HCAP) Interval history: Patient is seen today for: Acute Hypoxemic Resp Failure; Severe Sepsis; Aspiration Pneumonai (HCAP) Seen and examined at bedside; 24hour events reviewed; nursing and respiratory care staff consulted; no adverse overnight events reported to me; remains on MVS ; s/p CODE BLUE with ROSC; AMS is persistent; levophed up to 12 mics/min; No emesis or overt aspiration and no gross bleeding Objective Vital Signs - 12hr 03/02/18 03/03/18 03/03/18 23:45 00:00 00:15 Temperature 100.3 F H Pulse Rate 136 H 122 H 120 H Pulse Rate [ 122 H From Monitor] Pulse Rate [ 125 H Left Dorsalis Pedis] Respiratory 20 19 20 Rate Blood Pressure 84/52 92/50 87/55 O2 Sat by Pulse 100 100 99 Oximetry 03/03/18 03/03/18 03/03/18 00:30 00:45 01:00 Temperature Pulse Rate 118 H 122 H 122 H Pulse Rate [ From Monitor] Pulse Rate [ Left Dorsalis Pedis] Respiratory 18 20 18 Rate Blood Pressure 88/53 92/56 98/55 O2 Sat by Pulse 99 100 100 Oximetry 03/03/18 03/03/18 03/03/18 01:15 01:30 01:46 Temperature Pulse Rate 126 H 123 H 134 H Pulse Rate [ From Monitor] Pulse Rate [ Left Dorsalis Pedis] Respiratory 21 19 23 Rate Blood Pressure 101/63 92/56 102/54 O2 Sat by Pulse 100 100 100 Oximetry 03/03/18 03/03/18 03/03/18 02:00 02:15 02:30 Temperature Pulse Rate 144 H 136 H 131 H Pulse Rate [ 134 H From Monitor] Pulse Rate [ 135 H Left Dorsalis Pedis] Respiratory 29 H 20 19 Rate Blood Pressure 102/54 106/70 95/59 O2 Sat by Pulse 98 96 96 Oximetry 03/03/18 03/03/18 03/03/18 02:45 02:52 03:00 Temperature 98 F Pulse Rate 133 H 126 H Pulse Rate [ From Monitor] Pulse Rate [ Left Dorsalis Pedis] Respiratory 18 18 Rate Blood Pressure 91/49 88/49 O2 Sat by Pulse 96 97 Oximetry 03/03/18 03/03/18 03/03/18 03:15 03:30 03:32 Temperature Pulse Rate 126 H 125 H 127 H Pulse Rate [ From Monitor] Pulse Rate [ Left Dorsalis Pedis] Respiratory 17 17 Rate Blood Pressure 90/54 92/58 90/54 O2 Sat by Pulse 96 98 99 Oximetry 03/03/18 03/03/18 03/03/18 03:45 04:00 04:15 Temperature Pulse Rate 122 H 124 H 123 H Pulse Rate [ 134 H From Monitor] Pulse Rate [ 117 H Left Dorsalis Pedis] Respiratory 16 17 17 Rate Blood Pressure 92/58 101/64 99/60 O2 Sat by Pulse 100 99 99 Oximetry 03/03/18 03/03/18 03/03/18 04:30 04:46 05:00 Temperature Pulse Rate 133 H 112 H 153 H Pulse Rate [ From Monitor] Pulse Rate [ Left Dorsalis Pedis] Respiratory 27 H 24 32 H Rate Blood Pressure 99/60 79/48 89/56 O2 Sat by Pulse 100 94 90 Oximetry 03/03/18 03/03/18 03/03/18 05:15 05:30 05:46 Temperature Pulse Rate 140 H 131 H 131 H Pulse Rate [ From Monitor] Pulse Rate [ Left Dorsalis Pedis] Respiratory 35 H 44 H 32 H Rate Blood Pressure 108/54 108/54 76/40 O2 Sat by Pulse 90 94 90 Oximetry 03/03/18 03/03/18 03/03/18 06:00 06:16 06:30 Temperature Pulse Rate 126 H 135 H 134 H Pulse Rate [ 134 H From Monitor] Pulse Rate [ 135 H Left Dorsalis Pedis] Respiratory 35 H 38 H 49 H Rate Blood Pressure 74/41 64/40 74/50 O2 Sat by Pulse 90 92 91 Oximetry 03/03/18 03/03/18 03/03/18 06:46 07:00 07:15 Temperature Pulse Rate 127 H 129 H 142 H Pulse Rate [ From Monitor] Pulse Rate [ Left Dorsalis Pedis] Respiratory 28 H 52 H 33 H Rate Blood Pressure 81/51 90/54 95/59 O2 Sat by Pulse 91 89 90 Oximetry 03/03/18 03/03/18 03/03/18 07:30 07:45 07:50 Temperature Pulse Rate 131 H 119 H 122 H Pulse Rate [ From Monitor] Pulse Rate [ Left Dorsalis Pedis] Respiratory 29 H 32 H Rate Blood Pressure 95/59 79/57 113/61 O2 Sat by Pulse 87 76 L 100 Oximetry 03/03/18 03/03/18 03/03/18 08:00 08:01 08:15 Temperature 99.8 F H Pulse Rate 141 H 134 H Pulse Rate [ 141 H From Monitor] Pulse Rate [ Left Dorsalis Pedis] Respiratory 20 20 18 Rate Blood Pressure 113/61 92/49 O2 Sat by Pulse 98 98 100 Oximetry 03/03/18 03/03/18 08:30 09:47 Temperature Pulse Rate 131 H 121 H Pulse Rate [ From Monitor] Pulse Rate [ Left Dorsalis Pedis] Respiratory 26 H Rate Blood Pressure 92/55 95/64 O2 Sat by Pulse 99 100 Oximetry Constitutional: appears uncomfortable, other (elderly looking AAM, normocephalic and atraumativ on MVS with increased respiratory effort) Eyes: icteric ENT: oropharynx moist, other (ETT 24 cm TERESA) Neck: supple, no lymphadenopathy, no JVD, other (no thyromegaly) Effort: mildly labored Ascultation: Bilateral: diminished breath sounds, rales Percussion: Bilateral: not dull Cardiovascular: regular rate and rhythm, other (No R/M) Gastrointestinal: normoactive bowel sounds, soft, non-tender, non-distended, other (+ PEG; No HSM) Integumentary: other (poor turgor) Extremities: no cyanosis, no edema, pulses normal, no ischemia or petechiae Neurologic: pupils equal and round, other (left hemiplegia) Psychiatric: other (unable to assess re: encephalopathy) CBC and BMP: 03/10/18 06:55 03/10/18 06:55 ABG, PT/INR, D-dimer: ABG POC ABG pH 7.381 (7.35-7.45) 03/03/18 09:38 POC ABG pCO2 23.8 (35-45) L 03/03/18 09:38 POC ABG pO2 156 (80-105) H 03/03/18 09:38 POC ABG HCO3 14.1 03/03/18 09:38 POC ABG Total CO2 15 03/03/18 09:38 POC ABG O2 Sat 99 03/03/18 09:38 PT/INR, D-dimer PT 21.5 Sec. (12.2-14.9) H 02/26/18 20:50 INR 1.75 (0.87-1.13) H 02/26/18 20:50 Abnormal lab findings: Abnormal Labs 02/25/18 02/25/18 02/25/18 23:15 23:15 23:15 WBC 12.3 H RBC 3.56 L Hgb 10.2 L Hct 33.7 L MCV 95 H MCHC 30 L RDW 17.7 H Seg Neuts % (Manual) 35.0 L Lymphocytes % (Manual) 13.0 L Monocytes % (Manual) 8.0 H Nucleated RBC % Seg Neutrophils # Man Lymphocytes # (Manual) Monocytes # (Manual) 1.0 H PT 20.3 H INR 1.63 H POC ABG pH POC ABG pCO2 POC ABG pO2 Sodium 152 H Potassium Chloride 108.7 H Carbon Dioxide 18 L BUN 136 H Creatinine 5.2 H Glucose POC Glucose Lactic Acid Calcium 8.0 L Phosphorus Total Bilirubin 4.50 H AST 83 H C-Reactive Protein Albumin 2.7 L Urine Creatinine Crossmatch 02/25/18 02/25/18 02/26/18 23:15 23:30 03:06 WBC RBC Hgb Hct MCV MCHC RDW Seg Neuts % (Manual) Lymphocytes % (Manual) Monocytes % (Manual) Nucleated RBC % Seg Neutrophils # Man Lymphocytes # (Manual) Monocytes # (Manual) PT INR POC ABG pH POC ABG pCO2 25.2 L POC ABG pO2 69 L Sodium Potassium Chloride Carbon Dioxide BUN Creatinine Glucose POC Glucose Lactic Acid 7.00 H* 9.70 H* Calcium Phosphorus Total Bilirubin AST C-Reactive Protein Albumin Urine Creatinine Crossmatch 02/26/18 02/26/18 02/26/18 05:12 05:43 07:39 WBC 23.7 H RBC 3.27 L Hgb 9.3 L Hct 31.1 L MCV 95 H MCHC 30 L RDW 17.4 H Seg Neuts % (Manual) Lymphocytes % (Manual) 2.0 L Monocytes % (Manual) Nucleated RBC % 1.0 H Seg Neutrophils # Man 16.1 H Lymphocytes # (Manual) 0.5 L Monocytes # (Manual) 1.2 H PT INR POC ABG pH POC ABG pCO2 19.5 L POC ABG pO2 72 L Sodium Potassium Chloride Carbon Dioxide BUN Creatinine Glucose POC Glucose Lactic Acid 8.80 H* Calcium Phosphorus Total Bilirubin AST C-Reactive Protein Albumin Urine Creatinine Crossmatch 02/26/18 02/26/18 02/26/18 07:39 12:06 13:08 WBC RBC Hgb Hct MCV MCHC RDW Seg Neuts % (Manual) Lymphocytes % (Manual) Monocytes % (Manual) Nucleated RBC % Seg Neutrophils # Man Lymphocytes # (Manual) Monocytes # (Manual) PT INR POC ABG pH POC ABG pCO2 27.8 L POC ABG pO2 168 H Sodium 155 H Potassium Chloride 114.2 H Carbon Dioxide 14 L BUN 120 H Creatinine 4.6 H Glucose 108 H POC Glucose Lactic Acid Calcium 7.7 L Phosphorus Total Bilirubin 4.50 H AST 105 H C-Reactive Protein Albumin 2.4 L Urine Creatinine 38.6 H Crossmatch 02/26/18 02/26/18 02/26/18 18:41 20:50 20:50 WBC RBC Hgb Hct MCV MCHC RDW Seg Neuts % (Manual) Lymphocytes % (Manual) Monocytes % (Manual) Nucleated RBC % Seg Neutrophils # Man Lymphocytes # (Manual) Monocytes # (Manual) PT 21.5 H INR 1.75 H POC ABG pH POC ABG pCO2 POC ABG pO2 Sodium Potassium Chloride Carbon Dioxide BUN Creatinine Glucose POC Glucose 135 H Lactic Acid Calcium Phosphorus Total Bilirubin AST C-Reactive Protein 33.90 H Albumin Urine Creatinine Crossmatch 02/27/18 02/27/18 02/27/18 03:39 04:56 04:56 WBC 20.1 H RBC 2.92 L Hgb 8.4 L Hct 27.5 L MCV MCHC 31 L RDW 17.1 H Seg Neuts % (Manual) 92.0 H Lymphocytes % (Manual) 3.0 L Monocytes % (Manual) Nucleated RBC % Seg Neutrophils # Man 18.5 H Lymphocytes # (Manual) 0.6 L Monocytes # (Manual) PT INR POC ABG pH 7.453 H POC ABG pCO2 27.2 L POC ABG pO2 Sodium 149 H Potassium Chloride 113.1 H Carbon Dioxide 18 L BUN 103 H Creatinine 3.8 H Glucose 120 H POC Glucose Lactic Acid Calcium 7.8 L Phosphorus Total Bilirubin AST C-Reactive Protein Albumin Urine Creatinine Crossmatch 02/27/18 02/27/18 02/27/18 12:37 12:45 17:51 WBC RBC Hgb Hct MCV MCHC RDW Seg Neuts % (Manual) Lymphocytes % (Manual) Monocytes % (Manual) Nucleated RBC % Seg Neutrophils # Man Lymphocytes # (Manual) Monocytes # (Manual) PT INR POC ABG pH POC ABG pCO2 POC ABG pO2 Sodium Potassium Chloride Carbon Dioxide BUN Creatinine Glucose POC Glucose 169 H 133 H Lactic Acid 2.90 H* Calcium Phosphorus Total Bilirubin AST C-Reactive Protein Albumin Urine Creatinine Crossmatch 02/28/18 02/28/18 02/28/18 00:23 05:00 05:02 WBC RBC Hgb Hct MCV MCHC RDW Seg Neuts % (Manual) Lymphocytes % (Manual) Monocytes % (Manual) Nucleated RBC % Seg Neutrophils # Man Lymphocytes # (Manual) Monocytes # (Manual) PT INR POC ABG pH POC ABG pCO2 POC ABG pO2 Sodium Potassium Chloride Carbon Dioxide BUN Creatinine Glucose POC Glucose 161 H 116 H Lactic Acid 2.70 H* Calcium Phosphorus Total Bilirubin AST C-Reactive Protein Albumin Urine Creatinine Crossmatch 02/28/18 02/28/18 02/28/18 05:28 07:04 09:00 WBC 22.3 H RBC 2.63 L Hgb 7.6 L Hct 24.1 L MCV MCHC 31 L RDW 17.4 H Seg Neuts % (Manual) 84.0 H Lymphocytes % (Manual) 8.0 L Monocytes % (Manual) Nucleated RBC % Seg Neutrophils # Man 18.7 H Lymphocytes # (Manual) Monocytes # (Manual) 1.1 H PT INR POC ABG pH 7.477 H POC ABG pCO2 24.6 L POC ABG pO2 57 L Sodium Potassium Chloride Carbon Dioxide BUN Creatinine Glucose POC Glucose Lactic Acid 3.10 H* Calcium Phosphorus Total Bilirubin AST C-Reactive Protein Albumin Urine Creatinine Crossmatch 02/28/18 02/28/18 02/28/18 09:00 11:36 17:10 WBC RBC Hgb Hct MCV MCHC RDW Seg Neuts % (Manual) Lymphocytes % (Manual) Monocytes % (Manual) Nucleated RBC % Seg Neutrophils # Man Lymphocytes # (Manual) Monocytes # (Manual) PT INR POC ABG pH POC ABG pCO2 POC ABG pO2 Sodium Potassium 3.3 L 3.5 L Chloride Carbon Dioxide 21 L 19 L BUN 76 H 69 H Creatinine 2.8 H 2.5 H Glucose 104 H 124 H POC Glucose 107 H Lactic Acid Calcium 7.6 L 7.3 L Phosphorus 1.50 L Total Bilirubin AST C-Reactive Protein Albumin Urine Creatinine Crossmatch 02/28/18 02/28/18 03/01/18 17:36 23:40 06:25 WBC RBC Hgb Hct MCV MCHC RDW Seg Neuts % (Manual) Lymphocytes % (Manual) Monocytes % (Manual) Nucleated RBC % Seg Neutrophils # Man Lymphocytes # (Manual) Monocytes # (Manual) PT INR POC ABG pH 7.542 H POC ABG pCO2 23.3 L POC ABG pO2 62 L Sodium Potassium Chloride Carbon Dioxide BUN Creatinine Glucose POC Glucose 151 H 111 H Lactic Acid Calcium Phosphorus Total Bilirubin AST C-Reactive Protein Albumin Urine Creatinine Crossmatch 03/01/18 03/01/18 03/02/18 10:00 12:12 05:21 WBC RBC Hgb Hct MCV MCHC RDW Seg Neuts % (Manual) Lymphocytes % (Manual) Monocytes % (Manual) Nucleated RBC % Seg Neutrophils # Man Lymphocytes # (Manual) Monocytes # (Manual) PT INR POC ABG pH 7.473 H POC ABG pCO2 21.5 L POC ABG pO2 79 L Sodium Potassium 3.5 L Chloride Carbon Dioxide 18 L BUN 66 H Creatinine 2.8 H Glucose 103 H POC Glucose 176 H Lactic Acid Calcium 7.5 L Phosphorus Total Bilirubin AST C-Reactive Protein Albumin Urine Creatinine Crossmatch 03/02/18 03/02/18 03/02/18 06:00 06:00 11:47 WBC 18.2 H RBC 2.43 L Hgb 7.2 L Hct 22.6 L MCV MCHC RDW 17.6 H Seg Neuts % (Manual) Lymphocytes % (Manual) Monocytes % (Manual) Nucleated RBC % Seg Neutrophils # Man Lymphocytes # (Manual) Monocytes # (Manual) PT INR POC ABG pH POC ABG pCO2 POC ABG pO2 Sodium Potassium Chloride Carbon Dioxide 17 L BUN 68 H Creatinine 3.1 H Glucose 106 H POC Glucose 136 H Lactic Acid Calcium 7.2 L Phosphorus Total Bilirubin AST C-Reactive Protein Albumin Urine Creatinine Crossmatch 03/02/18 03/03/18 03/03/18 17:35 00:54 03:38 WBC RBC Hgb Hct MCV MCHC RDW Seg Neuts % (Manual) Lymphocytes % (Manual) Monocytes % (Manual) Nucleated RBC % Seg Neutrophils # Man Lymphocytes # (Manual) Monocytes # (Manual) PT INR POC ABG pH 7.451 H POC ABG pCO2 20.5 L POC ABG pO2 Sodium Potassium Chloride Carbon Dioxide BUN Creatinine Glucose POC Glucose 109 H 131 H Lactic Acid Calcium Phosphorus Total Bilirubin AST C-Reactive Protein Albumin Urine Creatinine Crossmatch 03/03/18 03/03/18 03/03/18 06:15 06:15 08:37 WBC 21.1 H RBC 2.20 L Hgb 6.3 L Hct 20.8 L MCV 95 H MCHC 30 L RDW 17.8 H Seg Neuts % (Manual) 71.0 H Lymphocytes % (Manual) 8.0 L Monocytes % (Manual) Nucleated RBC % Seg Neutrophils # Man 15.0 H Lymphocytes # (Manual) Monocytes # (Manual) 1.3 H PT INR POC ABG pH POC ABG pCO2 POC ABG pO2 Sodium 130 L D Potassium Chloride 96.4 L Carbon Dioxide 14 L BUN 69 H Creatinine 3.1 H Glucose POC Glucose Lactic Acid Calcium 7.0 L Phosphorus Total Bilirubin AST C-Reactive Protein Albumin Urine Creatinine Crossmatch See Detail 03/03/18 09:38 WBC RBC Hgb Hct MCV MCHC RDW Seg Neuts % (Manual) Lymphocytes % (Manual) Monocytes % (Manual) Nucleated RBC % Seg Neutrophils # Man Lymphocytes # (Manual) Monocytes # (Manual) PT INR POC ABG pH POC ABG pCO2 23.8 L POC ABG pO2 156 H Sodium Potassium Chloride Carbon Dioxide BUN Creatinine Glucose POC Glucose Lactic Acid Calcium Phosphorus Total Bilirubin AST C-Reactive Protein Albumin Urine Creatinine Crossmatch Chest x-ray: image reviewed Allied health notes reviewed: nursing
--- NOTE | 2018-03-03 11:42 | Progress Note ---
Assessment and Plan Impression: * Nonoliguric acute kidney injury secondary to prerenal azotemia/ATN due to dehydration vs sepsis --Baseline SCr 1.6-1.8mg/dL * Acute hypoxic respiratory failure * Sepsis * metabolic acidosis * HCAP --sputum w/ MRSA, group A beta hemolytic strep * Hypernatremia secondary to dehydration - resolved * Metabolic acidosis secondary to lactic acidosis Plan: * Bolus 500ml NS * Continue IVF--add NA bicarb * if refractory, may need personal service workers * Patient may require addition of pressor - MAP is borderline * prn transfusion of pRBC * Replete lytes prn * Vent management per CCM * Broad spectrum abx * Dose medications for renal function * Avoid potential nephrotoxins Subjective Date of service: 03/03/18 Principal diagnosis: Acute Hypoxemic Resp Failure; Severe Sepsis; Aspiration Pneumonai (HCAP) Interval history: resting well in bed today Objective - Exam Narrative Exam: General appearance: intubated EENT: ATNC, other (ETT in place) Respiratory: Present: Other (coarse breath sounds) Cardiology: tachycardia, S1S2 Gastrointestinal: normal, no distended Integumentary: no rash, warm and dry Musculoskeletal: other (no edema) - Vital Signs Vital signs: Vital Signs - 12hr 03/02/18 03/03/18 03/03/18 23:45 00:00 00:15 Temperature 100.3 F H Pulse Rate 136 H 122 H 120 H Pulse Rate [ 122 H From Monitor] Pulse Rate [ 125 H Left Dorsalis Pedis] Respiratory 20 19 20 Rate Blood Pressure 84/52 92/50 87/55 O2 Sat by Pulse 100 100 99 Oximetry 03/03/18 03/03/18 03/03/18 00:30 00:45 01:00 Temperature Pulse Rate 118 H 122 H 122 H Pulse Rate [ From Monitor] Pulse Rate [ Left Dorsalis Pedis] Respiratory 18 20 18 Rate Blood Pressure 88/53 92/56 98/55 O2 Sat by Pulse 99 100 100 Oximetry 03/03/18 03/03/18 03/03/18 01:15 01:30 01:46 Temperature Pulse Rate 126 H 123 H 134 H Pulse Rate [ From Monitor] Pulse Rate [ Left Dorsalis Pedis] Respiratory 21 19 23 Rate Blood Pressure 101/63 92/56 102/54 O2 Sat by Pulse 100 100 100 Oximetry 03/03/18 03/03/1818 02:00 02:15 02:30 Temperature Pulse Rate 144 H 136 H 131 H Pulse Rate [ 134 H From Monitor] Pulse Rate [ 135 H Left Dorsalis Pedis] Respiratory 29 H 20 19 Rate Blood Pressure 102/54 106/70 95/59 O2 Sat by Pulse 98 96 96 Oximetry 03/03/18 03/03/18 03/03/18 02:45 02:52 03:00 Temperature 98 F Pulse Rate 133 H 126 H Pulse Rate [ From Monitor] Pulse Rate [ Left Dorsalis Pedis] Respiratory 18 18 Rate Blood Pressure 91/49 88/49 O2 Sat by Pulse 96 97 Oximetry 03/03/18 03/03/18 03/03/18 03:15 03:30 03:32 Temperature Pulse Rate 126 H 125 H 127 H Pulse Rate [ From Monitor] Pulse Rate [ Left Dorsalis Pedis] Respiratory 17 17 Rate Blood Pressure 90/54 92/58 90/54 O2 Sat by Pulse 96 98 99 Oximetry 03/03/18 03/03/18 03/03/18 03:45 04:00 04:15 Temperature Pulse Rate 122 H 124 H 123 H Pulse Rate [ 134 H From Monitor] Pulse Rate [ 117 H Left Dorsalis Pedis] Respiratory 16 17 17 Rate Blood Pressure 92/58 101/64 99/60 O2 Sat by Pulse 100 99 99 Oximetry 03/03/18 03/03/18 03/03/18 04:30 04:46 05:00 Temperature Pulse Rate 133 H 112 H 153 H Pulse Rate [ From Monitor] Pulse Rate [ Left Dorsalis Pedis] Respiratory 27 H 24 32 H Rate Blood Pressure 99/60 79/48 89/56 O2 Sat by Pulse 100 94 90 Oximetry 03/03/18 03/03/18 03/03/18 05:15 05:30 05:46 Temperature Pulse Rate 140 H 131 H 131 H Pulse Rate [ From Monitor] Pulse Rate [ Left Dorsalis Pedis] Respiratory 35 H 44 H 32 H Rate Blood Pressure 108/54 108/54 76/40 O2 Sat by Pulse 90 94 90 Oximetry 03/03/18 03/03/18 03/03/18 06:00 06:16 06:30 Temperature Pulse Rate 126 H 135 H 134 H Pulse Rate [ 134 H From Monitor] Pulse Rate [ 135 H Left Dorsalis Pedis] Respiratory 35 H 38 H 49 H Rate Blood Pressure 74/41 64/40 74/50 O2 Sat by Pulse 90 92 91 Oximetry 03/03/18 03/03/18 03/03/18 06:46 07:00 07:15 Temperature Pulse Rate 127 H 129 H 142 H Pulse Rate [ From Monitor] Pulse Rate [ Left Dorsalis Pedis] Respiratory 28 H 52 H 33 H Rate Blood Pressure 81/51 90/54 95/59 O2 Sat by Pulse 91 89 90 Oximetry 03/03/18 03/03/18 03/03/18 07:30 07:45 07:50 Temperature Pulse Rate 131 H 119 H 122 H Pulse Rate [ From Monitor] Pulse Rate [ Left Dorsalis Pedis] Respiratory 29 H 32 H Rate Blood Pressure 95/59 79/57 113/61 O2 Sat by Pulse 87 76 L 100 Oximetry 03/03/18 03/03/18 03/03/18 08:00 08:01 08:15 Temperature 99.8 F H Pulse Rate 141 H 134 H Pulse Rate [ 141 H From Monitor] Pulse Rate [ Left Dorsalis Pedis] Respiratory 20 20 18 Rate Blood Pressure 113/61 92/49 O2 Sat by Pulse 98 98 100 Oximetry 03/03/18 03/03/18 08:30 09:47 Temperature Pulse Rate 131 H 121 H Pulse Rate [ From Monitor] Pulse Rate [ Left Dorsalis Pedis] Respiratory 26 H Rate Blood Pressure 92/55 95/64 O2 Sat by Pulse 99 100 Oximetry - Lab 03/03/18 06:15 03/03/18 06:15 Most recent lab results Calcium 7.0 mg/dL (8.4-10.2) L 03/03/18 06:15 Phosphorus 1.50 mg/dL (2.5-4.5) L 02/28/18 17:10 Magnesium 2.00 mg/dL (1.7-2.3) 02/28/18 17:10 Urine Creatinine 38.6 mg/dL (0.1-20.0) H 02/26/18 13:08 Urine Sodium 67 mmol/L 02/26/18 13:08
--- NOTE | 2018-03-03 12:13 | Progress Note ---
Assessment and Plan Assessment: 1) Severe sepsis with septic shock: increased levophed at 12 after cardiac arrest, leukocytosis is up, still fever; source pneumonia 2) Complicated Multilobar pneumonia: due to MRSA and GAS 3) Acute respiratory failure: on the vent 4) Acute encephalopathy 5) DIANNA - better 6) History of CVA 7) S/p cardiac arrest Plan: -continue zyvox IV D5 -continue penicillin G and Clindamycin IV D3 -consider repeat chest CT to eval for lung abscesses -contact isolation Guarded prognosis I am rounding tomorrow Thanks Mimi Lay MD Subjective Date of service: 03/03/18 Principal diagnosis: Acute Hypoxemic Resp Failure; Severe Sepsis; Aspiration Pneumonai (HCAP) Interval history: S/p cardiac arrest on VT then PEA s/p CPR this morning, tmax 100.3, remains on the vent CMV fiO2 100%, p12, levophed at 12, on fentanyl and propofol. Micro: Blood cx 02/26 ngtd Urine cx 02/26 neg Tracheal asp 02/26 MRSA and GAS x 2 Current Abx: zyvox 02/28 clinda 03/01 pen G 03/01 Previous Abx: zosyn vanco Objective - Exam Narrative Exam: Sedated on the vent NC/AT, ASH, OP with ETT, OGT Neck no LNs Lungs josh scattered rhonchi CV tachycardic Abd soft distended Ext +josh leg edema Neuro sedated Skin no rash Lines: shrestha and right fem TLC - Constitutional Vitals: Vital Signs Temp Pulse Resp BP Pulse Ox 99.8 F H 121 H 26 H 95/64 100 03/03/18 08:00 03/03/18 09:47 03/03/18 08:30 03/03/18 09:47 03/03/18 09:47 Temperature -Last 24 Hours Temperature 99.8 F Temperature 98 F Temperature 100.3 F Temperature 99.1 F Temperature 100.1 F - Labs CBC & Chem 7: 03/03/18 06:15 03/03/18 06:15 Labs: Abnormal lab results 03/02/18 03/02/18 03/03/18 Range/Units 11:47 17:35 00:54 WBC (4.5-11.0) K/mm3 RBC (3.65-5.03) M/mm3 Hgb (11.8-15.2) gm/dl Hct (35.5-45.6) % MCV (84-94) fl MCHC (32-34) % RDW (13.2-15.2) % Seg Neuts % (Manual) (40.0-70.0) % Lymphocytes % (Manual) (13.4-35.0) % Seg Neutrophils # Man (1.8-7.7) K/mm3 Monocytes # (Manual) (0.0-0.8) K/mm3 POC ABG pH (7.35-7.45) POC ABG pCO2 (35-45) POC ABG pO2 (80-105) Sodium (137-145) mmol/L Chloride (98-107) mmol/L Carbon Dioxide (22-30) mmol/L BUN (9-20) mg/dL Creatinine (0.8-1.5) mg/dL POC Glucose 136 H 109 H 131 H (70-105) Calcium (8.4-10.2) mg/dL Crossmatch 03/03/18 03/03/18 03/03/18 Range/Units 03:38 06:15 06:15 WBC 21.1 H (4.5-11.0) K/mm3 RBC 2.20 L (3.65-5.03) M/mm3 Hgb 6.3 L (11.8-15.2) gm/dl Hct 20.8 L (35.5-45.6) % MCV 95 H (84-94) fl MCHC 30 L (32-34) % RDW 17.8 H (13.2-15.2) % Seg Neuts % (Manual) 71.0 H (40.0-70.0) % Lymphocytes % (Manual) 8.0 L (13.4-35.0) % Seg Neutrophils # Man 15.0 H (1.8-7.7) K/mm3 Monocytes # (Manual) 1.3 H (0.0-0.8) K/mm3 POC ABG pH 7.451 H (7.35-7.45) POC ABG pCO2 20.5 L (35-45) POC ABG pO2 (80-105) Sodium 130 L D (137-145) mmol/L Chloride 96.4 L (98-107) mmol/L Carbon Dioxide 14 L (22-30) mmol/L BUN 69 H (9-20) mg/dL Creatinine 3.1 H (0.8-1.5) mg/dL POC Glucose (70-105) Calcium 7.0 L (8.4-10.2) mg/dL Crossmatch 03/03/18 03/03/18 Range/Units 08:37 09:38 WBC (4.5-11.0) K/mm3 RBC (3.65-5.03) M/mm3 Hgb (11.8-15.2) gm/dl Hct (35.5-45.6) % MCV (84-94) fl MCHC (32-34) % RDW (13.2-15.2) % Seg Neuts % (Manual) (40.0-70.0) % Lymphocytes % (Manual) (13.4-35.0) % Seg Neutrophils # Man (1.8-7.7) K/mm3 Monocytes # (Manual) (0.0-0.8) K/mm3 POC ABG pH (7.35-7.45) POC ABG pCO2 23.8 L (35-45) POC ABG pO2 156 H (80-105) Sodium (137-145) mmol/L Chloride (98-107) mmol/L Carbon Dioxide (22-30) mmol/L BUN (9-20) mg/dL Creatinine (0.8-1.5) mg/dL POC Glucose (70-105) Calcium (8.4-10.2) mg/dL Crossmatch See Detail
[2018-03-03] MEDS ORDERED: SODIUM BICARBONATE IV SCH (13:00)
[2018-03-03] MEDS ORDERED: NACL 0.45% IV SCH (13:00)
[2018-03-03] MEDS: SODIUM BICARBONATE 150 MEQ, KCL 20 MEQ in D5W 1,000 ML IV SCH (13:33)
[2018-03-03] MEDS: DUONEB *Not for PRN Use IH SCH ×2 (16:57→22:29)
[2018-03-04] MEDS: LEVOPHED DRIP 4 MG/NS 250 ML 4 MG/250 ML BAG IV SCH ×3 (00:27→10:09)
[2018-03-04] MEDS: SODIUM CHLORIDE FLUSH SYRINGE 10 ML IV SCH ×2 (00:31→10:00)
[2018-03-04] MEDS: SODIUM BICARBONATE 150 MEQ, KCL 20 MEQ in D5W 1,000 ML IV SCH ×3 (00:41→21:31)
[2018-03-04] MEDS: HumuLIN R SUB-Q SCH ×4 (00:44→18:28)
[2018-03-04] MEDS: DUONEB *Not for PRN Use IH SCH ×3 (02:52→15:31)
[2018-03-04] MEDS: CLEOCIN 600 MG/50 mL 600 MG/50 ML BAG IV SCH ×3 (05:27→21:32)
[2018-03-04] MEDS: PFIZERPEN 4 MIL.UNITS in NACL 0.9% 50 ML IV SCH ×4 (06:46→23:48)
[2018-03-04 06:47] LABS: Calcium 7.1 mg/dL (8.4-10.2)
[2018-03-04 06:54] LABS: C-Reactive Protein 19.8 mg/dL (0.00-1.30)
[2018-03-04 07:02] LABS: Hematocrit 21.7 % (35.5-45.6); Hemoglobin 7.1 gm/dl (11.8-15.2); Mean Corpuscular HGB Conc 33 % (32-34); Mean Corpuscular Hemoglobin 29 pg (28-32); Mean Corpuscular Volume 88 fl (84-94); Platelet Count 247 K/mm3 (140-440); Red Blood Count 2.46 M/mm3 (3.65-5.03); Red Cell Distribution Width 17.2 % (13.2-15.2)
--- NOTE | 2018-03-04 09:22 | XRay Report ---
AP CHEST: HISTORY: Postop code blue Compared to 03/03/18 at 0211 hours. This exam is just presented to me for interpretation. The endotracheal tube and left arm PICC remain in adequate position. Heart size is within normal limits. Patchy airspace densities are identified in the right perihilar region and lingula which probably represent atelectatic changes. If fever is present, pneumonia could be considered. No pleural effusion or pneumothorax is identified. IMPRESSION: Bilateral lung opacities as described above. Given differences in the level of inspiration, no overwhelming change is appreciated since the previous exam.
--- NOTE | 2018-03-04 09:23 | XRay Report ---
AP CHEST: HISTORY: Follow up respiratory failure Compared to 03/03/18 at 0806 hrs. The endotracheal tube and left arm PICC remain in adequate position. Heart size remains within normal limits. Mild increase in central pulmonary venous congestion is suspected. Mild improvement in the right perihilar opacities is demonstrated suggesting decreased atelectasis. The lingular opacity is unchanged. No large pleural effusion or pneumothorax is identified.
--- NOTE | 2018-03-04 09:48 | Progress Note ---
Assessment and Plan Severe sepsis with septic shock. Aspiration pneumonia, healthcare associated. Acute hypoxemic respiratory failure on MVS Acute on chronic encephalopathy. Acute on chronic kidney injury. Anemia. Hypernatremia. Metabolic acidosis. Lactic acidosis. History of hypertension. History of diabetes. History of Alzheimer dementia. - continue full MVS for now - initiate SAT's and SBT's tomorrow -change vasopressor to dopamine in view of bradycardia -discuss with renal need for [employer], as his renal function is worsening and the arrythmias are probably related to his metabolic/electrolyte derangement - continue bronchodilators with pulmonary hygiene per RT - continue to wean FiO2 for sats > 90% - addressing VAP bundle daily - continue to wean levophed for MAP > 65 mmHg - continue free water flushes - strict I's & O's re: DIANNA and will leave shrestha catheter in place for now, especially with worsening renal function - volume resuscitate. Once hemodynamically normal and off vasopressor support, initiate volume restrictive strategies - trend CRP and lactate prn - continue enteral nutrition as tolerated - continue mobility protocol for pressure ulcer prophylaxis - continue GI & VTE prophylaxis - continue antibiotics deescalate an adjust based oon culture results and MICAELA - ID consult notes reviewed - contact precautions - MRSA from trach aspirate - continue other care per attending / other consultants The high probability of a clinically significant, sudden or life threatening deterioration of the [cardiac, respiratory and GI] system(s) required my full and direct attention, intervention and personal management. The aggregate critical care time was [35] minutes without overlap. Time includes spent on; [x] Data Review and interpretation [x] Patient assessment and monitoring of vital signs [x] Documentation [x] Medication orders and management Subjective Date of service: 03/04/18 Principal diagnosis: Acute Hypoxemic Resp Failure; Severe Sepsis; Aspiration Pneumonai (HCAP) Interval history: Seen and examined. Vitals, labs, medications, chart and imaging reviewed. On going bradycardia with ongoing need for vasopressor suppport. s/p PEA arrest yesterday with ROSC within 6 minutes Continues to remain critically ill on full ventilatory and on going vasopressor support. Discussed with RT and RN at the bedside Discussed during IDT-ICU rounds Objective Vital Signs - 12hr 03/03/18 03/03/18 03/03/18 22:00 22:15 22:29 Temperature Pulse Rate 121 H 122 H Pulse Rate [ 112 H Anterior Bilateral Throughout] Pulse Rate [ From Monitor] Respiratory 23 21 Rate Respiratory 28 H Rate [Anterior Bilateral Throughout] Blood Pressure 101/66 110/69 O2 Sat by Pulse 100 100 Oximetry 03/03/18 03/03/18 03/03/18 22:30 22:39 22:45 Temperature Pulse Rate 127 H 125 H Pulse Rate [ 122 H Anterior Bilateral Throughout] Pulse Rate [ From Monitor] Respiratory 25 H 29 H Rate Respiratory 27 H Rate [Anterior Bilateral Throughout] Blood Pressure 120/71 105/67 O2 Sat by Pulse 98 99 Oximetry 03/03/18 03/03/18 03/03/18 23:00 23:04 23:15 Temperature Pulse Rate 123 H 123 H 121 H Pulse Rate [ Anterior Bilateral Throughout] Pulse Rate [ From Monitor] Respiratory 28 H 27 H 25 H Rate Respiratory Rate [Anterior Bilateral Throughout] Blood Pressure 99/65 94/56 96/62 O2 Sat by Pulse 100 100 100 Oximetry 03/03/18 03/03/18 03/04/18 23:30 23:45 00:00 Temperature 98.8 F Pulse Rate 126 H 118 H 128 H Pulse Rate [ Anterior Bilateral Throughout] Pulse Rate [ 114 H From Monitor] Respiratory 31 H 24 24 Rate Respiratory Rate [Anterior Bilateral Throughout] Blood Pressure 100/70 104/55 99/58 O2 Sat by Pulse 100 100 99 Oximetry 03/04/18 03/04/18 03/04/18 00:15 00:30 00:45 Temperature Pulse Rate 137 H 126 H 121 H Pulse Rate [ Anterior Bilateral Throughout] Pulse Rate [ From Monitor] Respiratory 34 H 25 H 26 H Rate Respiratory Rate [Anterior Bilateral Throughout] Blood Pressure 104/55 95/58 92/61 O2 Sat by Pulse 97 98 99 Oximetry 03/04/18 03/04/18 03/04/18 01:00 01:15 01:30 Temperature Pulse Rate 118 H 119 H 120 H Pulse Rate [ Anterior Bilateral Throughout] Pulse Rate [ From Monitor] Respiratory 22 24 25 H Rate Respiratory Rate [Anterior Bilateral Throughout] Blood Pressure 92/61 101/65 102/65 O2 Sat by Pulse 100 98 98 Oximetry 03/04/18 03/04/18 03/04/18 01:45 02:00 02:15 Temperature Pulse Rate 124 H 121 H 123 H Pulse Rate [ Anterior Bilateral Throughout] Pulse Rate [ From Monitor] Respiratory 28 H 24 28 H Rate Respiratory Rate [Anterior Bilateral Throughout] Blood Pressure 107/72 108/73 116/67 O2 Sat by Pulse 98 98 99 Oximetry 03/04/18 03/04/18 03/04/18 02:30 02:45 03:00 Temperature Pulse Rate 125 H 124 H 123 H Pulse Rate [ Anterior Bilateral Throughout] Pulse Rate [ From Monitor] Respiratory 30 H 28 H 26 H Rate Respiratory Rate [Anterior Bilateral Throughout] Blood Pressure 101/71 97/63 95/65 O2 Sat by Pulse 97 99 98 Oximetry 03/04/18 03/04/18 03/04/18 03:01 03:15 03:30 Temperature 100.1 F H Pulse Rate 126 H 126 H Pulse Rate [ Anterior Bilateral Throughout] Pulse Rate [ From Monitor] Respiratory 31 H 28 H Rate Respiratory Rate [Anterior Bilateral Throughout] Blood Pressure 104/69 109/64 O2 Sat by Pulse 100 98 Oximetry 03/04/18 03/04/18 03/04/18 03:45 04:00 04:15 Temperature Pulse Rate 123 H 122 H 123 H Pulse Rate [ Anterior Bilateral Throughout] Pulse Rate [ 125 H From Monitor] Respiratory 27 H 25 H 25 H Rate Respiratory Rate [Anterior Bilateral Throughout] Blood Pressure 96/59 87/58 91/60 O2 Sat by Pulse 99 100 100 Oximetry 03/04/18 03/04/18 03/04/18 04:30 04:45 05:01 Temperature Pulse Rate 125 H 130 H 130 H Pulse Rate [ Anterior Bilateral Throughout] Pulse Rate [ From Monitor] Respiratory 24 23 21 Rate Respiratory Rate [Anterior Bilateral Throughout] Blood Pressure 107/68 102/62 107/76 O2 Sat by Pulse 99 99 98 Oximetry 03/04/18 03/04/18 03/04/18 05:15 05:30 05:45 Temperature Pulse Rate 128 H 129 H 127 H Pulse Rate [ Anterior Bilateral Throughout] Pulse Rate [ From Monitor] Respiratory 29 H 35 H 28 H Rate Respiratory Rate [Anterior Bilateral Throughout] Blood Pressure 107/76 110/61 105/56 O2 Sat by Pulse 99 98 100 Oximetry 03/04/18 03/04/18 03/04/18 06:00 06:15 06:30 Temperature Pulse Rate 133 H 137 H 129 H Pulse Rate [ Anterior Bilateral Throughout] Pulse Rate [ From Monitor] Respiratory 40 H 32 H 26 H Rate Respiratory Rate [Anterior Bilateral Throughout] Blood Pressure 101/63 119/56 O2 Sat by Pulse 95 97 Oximetry 03/04/18 03/04/18 03/04/18 06:45 07:01 07:15 Temperature Pulse Rate 127 H 118 H 116 H Pulse Rate [ Anterior Bilateral Throughout] Pulse Rate [ From Monitor] Respiratory 21 17 17 Rate Respiratory Rate [Anterior Bilateral Throughout] Blood Pressure 104/67 94/55 88/53 O2 Sat by Pulse 99 100 100 Oximetry 03/04/18 03/04/18 03/04/18 07:30 07:45 08:00 Temperature 98.7 F Pulse Rate 116 H 118 H 117 H Pulse Rate [ Anterior Bilateral Throughout] Pulse Rate [ 117 H From Monitor] Respiratory 17 21 19 Rate Respiratory Rate [Anterior Bilateral Throughout] Blood Pressure 91/58 115/67 115/67 O2 Sat by Pulse 100 100 100 Oximetry 03/04/18 03/04/18 03/04/18 08:15 08:24 08:30 Temperature Pulse Rate 120 H 118 H 120 H Pulse Rate [ 118 H Anterior Bilateral Throughout] Pulse Rate [ From Monitor] Respiratory 20 21 Rate Respiratory 21 Rate [Anterior Bilateral Throughout] Blood Pressure 114/66 114/66 104/69 O2 Sat by Pulse 100 100 100 Oximetry 03/04/18 03/04/18 08:35 08:45 Temperature Pulse Rate 117 H Pulse Rate [ 117 H Anterior Bilateral Throughout] Pulse Rate [ From Monitor] Respiratory 19 Rate Respiratory 20 Rate [Anterior Bilateral Throughout] Blood Pressure 108/59 O2 Sat by Pulse 100 Oximetry Constitutional: appears uncomfortable, other (elderly looking AAM, normocephalic and atraumativ on MVS with increased respiratory effort) Eyes: icteric ENT: oropharynx moist, other (ETT 24 cm TERESA) Neck: supple, no lymphadenopathy, no JVD, other (no thyromegaly) Effort: mildly labored Ascultation: Bilateral: diminished breath sounds, rales Percussion: Bilateral: not dull Cardiovascular: regular rate and rhythm, other (No R/M) Gastrointestinal: normoactive bowel sounds, soft, non-tender, non-distended, other (+ PEG; No HSM) Integumentary: other (poor turgor) Extremities: no cyanosis, no edema, pulses normal, no ischemia or petechiae Neurologic: pupils equal and round, other (left hemiplegia) Psychiatric: other (unable to assess re: encephalopathy) CBC and BMP: 03/04/18 05:30 03/04/18 05:30 ABG, PT/INR, D-dimer: ABG POC ABG pH 7.486 (7.35-7.45) H 03/04/18 04:27 POC ABG pCO2 24.8 (35-45) L 03/04/18 04:27 POC ABG pO2 84 (80-105) 03/04/18 04:27 POC ABG HCO3 18.7 03/04/18 04:27 POC ABG Total CO2 19 03/04/18 04:27 POC ABG O2 Sat 97 03/04/18 04:27 PT/INR, D-dimer PT 21.5 Sec. (12.2-14.9) H 02/26/18 20:50 INR 1.75 (0.87-1.13) H 02/26/18 20:50 Abnormal lab findings: Abnormal Labs 02/25/18 02/25/18 02/25/18 23:15 23:15 23:15 WBC 12.3 H RBC 3.56 L Hgb 10.2 L Hct 33.7 L MCV 95 H MCHC 30 L RDW 17.7 H Seg Neuts % (Manual) 35.0 L Lymphocytes % (Manual) 13.0 L Monocytes % (Manual) 8.0 H Nucleated RBC % Seg Neutrophils # Man Lymphocytes # (Manual) Monocytes # (Manual) 1.0 H PT 20.3 H INR 1.63 H POC ABG pH POC ABG pCO2 POC ABG pO2 Sodium 152 H Potassium Chloride 108.7 H Carbon Dioxide 18 L BUN 136 H Creatinine 5.2 H Glucose POC Glucose Lactic Acid Calcium 8.0 L Phosphorus Total Bilirubin 4.50 H AST 83 H C-Reactive Protein Albumin 2.7 L Urine Creatinine Crossmatch 02/25/18 02/25/18 02/26/18 23:15 23:30 03:06 WBC RBC Hgb Hct MCV MCHC RDW Seg Neuts % (Manual) Lymphocytes % (Manual) Monocytes % (Manual) Nucleated RBC % Seg Neutrophils # Man Lymphocytes # (Manual) Monocytes # (Manual) PT INR POC ABG pH POC ABG pCO2 25.2 L POC ABG pO2 69 L Sodium Potassium Chloride Carbon Dioxide BUN Creatinine Glucose POC Glucose Lactic Acid 7.00 H* 9.70 H* Calcium Phosphorus Total Bilirubin AST C-Reactive Protein Albumin Urine Creatinine Crossmatch 02/26/18 02/26/18 02/26/18 05:12 05:43 07:39 WBC 23.7 H RBC 3.27 L Hgb 9.3 L Hct 31.1 L MCV 95 H MCHC 30 L RDW 17.4 H Seg Neuts % (Manual) Lymphocytes % (Manual) 2.0 L Monocytes % (Manual) Nucleated RBC % 1.0 H Seg Neutrophils # Man 16.1 H Lymphocytes # (Manual) 0.5 L Monocytes # (Manual) 1.2 H PT INR POC ABG pH POC ABG pCO2 19.5 L POC ABG pO2 72 L Sodium Potassium Chloride Carbon Dioxide BUN Creatinine Glucose POC Glucose Lactic Acid 8.80 H* Calcium Phosphorus Total Bilirubin AST C-Reactive Protein Albumin Urine Creatinine Crossmatch 02/26/18 02/26/18 02/26/18 07:39 12:06 13:08 WBC RBC Hgb Hct MCV MCHC RDW Seg Neuts % (Manual) Lymphocytes % (Manual) Monocytes % (Manual) Nucleated RBC % Seg Neutrophils # Man Lymphocytes # (Manual) Monocytes # (Manual) PT INR POC ABG pH POC ABG pCO2 27.8 L POC ABG pO2 168 H Sodium 155 H Potassium Chloride 114.2 H Carbon Dioxide 14 L BUN 120 H Creatinine 4.6 H Glucose 108 H POC Glucose Lactic Acid Calcium 7.7 L Phosphorus Total Bilirubin 4.50 H AST 105 H C-Reactive Protein Albumin 2.4 L Urine Creatinine 38.6 H Crossmatch 02/26/18 02/26/18 02/26/18 18:41 20:50 20:50 WBC RBC Hgb Hct MCV MCHC RDW Seg Neuts % (Manual) Lymphocytes % (Manual) Monocytes % (Manual) Nucleated RBC % Seg Neutrophils # Man Lymphocytes # (Manual) Monocytes # (Manual) PT 21.5 H INR 1.75 H POC ABG pH POC ABG pCO2 POC ABG pO2 Sodium Potassium Chloride Carbon Dioxide BUN Creatinine Glucose POC Glucose 135 H Lactic Acid Calcium Phosphorus Total Bilirubin AST C-Reactive Protein 33.90 H Albumin Urine Creatinine Crossmatch 02/27/18 02/27/18 02/27/18 03:39 04:56 04:56 WBC 20.1 H RBC 2.92 L Hgb 8.4 L Hct 27.5 L MCV MCHC 31 L RDW 17.1 H Seg Neuts % (Manual) 92.0 H Lymphocytes % (Manual) 3.0 L Monocytes % (Manual) Nucleated RBC % Seg Neutrophils # Man 18.5 H Lymphocytes # (Manual) 0.6 L Monocytes # (Manual) PT INR POC ABG pH 7.453 H POC ABG pCO2 27.2 L POC ABG pO2 Sodium 149 H Potassium Chloride 113.1 H Carbon Dioxide 18 L BUN 103 H Creatinine 3.8 H Glucose 120 H POC Glucose Lactic Acid Calcium 7.8 L Phosphorus Total Bilirubin AST C-Reactive Protein Albumin Urine Creatinine Crossmatch 02/27/18 02/27/18 02/27/18 12:37 12:45 17:51 WBC RBC Hgb Hct MCV MCHC RDW Seg Neuts % (Manual) Lymphocytes % (Manual) Monocytes % (Manual) Nucleated RBC % Seg Neutrophils # Man Lymphocytes # (Manual) Monocytes # (Manual) PT INR POC ABG pH POC ABG pCO2 POC ABG pO2 Sodium Potassium Chloride Carbon Dioxide BUN Creatinine Glucose POC Glucose 169 H 133 H Lactic Acid 2.90 H* Calcium Phosphorus Total Bilirubin AST C-Reactive Protein Albumin Urine Creatinine Crossmatch 02/28/18 02/28/18 02/28/18 00:23 05:00 05:02 WBC RBC Hgb Hct MCV MCHC RDW Seg Neuts % (Manual) Lymphocytes % (Manual) Monocytes % (Manual) Nucleated RBC % Seg Neutrophils # Man Lymphocytes # (Manual) Monocytes # (Manual) PT INR POC ABG pH POC ABG pCO2 POC ABG pO2 Sodium Potassium Chloride Carbon Dioxide BUN Creatinine Glucose POC Glucose 161 H 116 H Lactic Acid 2.70 H* Calcium Phosphorus Total Bilirubin AST C-Reactive Protein Albumin Urine Creatinine Crossmatch 02/28/18 02/28/18 02/28/18 05:28 07:04 09:00 WBC 22.3 H RBC 2.63 L Hgb 7.6 L Hct 24.1 L MCV MCHC 31 L RDW 17.4 H Seg Neuts % (Manual) 84.0 H Lymphocytes % (Manual) 8.0 L Monocytes % (Manual) Nucleated RBC % Seg Neutrophils # Man 18.7 H Lymphocytes # (Manual) Monocytes # (Manual) 1.1 H PT INR POC ABG pH 7.477 H POC ABG pCO2 24.6 L POC ABG pO2 57 L Sodium Potassium Chloride Carbon Dioxide BUN Creatinine Glucose POC Glucose Lactic Acid 3.10 H* Calcium Phosphorus Total Bilirubin AST C-Reactive Protein Albumin Urine Creatinine Crossmatch 02/28/18 02/28/18 02/28/18 09:00 11:36 17:10 WBC RBC Hgb Hct MCV MCHC RDW Seg Neuts % (Manual) Lymphocytes % (Manual) Monocytes % (Manual) Nucleated RBC % Seg Neutrophils # Man Lymphocytes # (Manual) Monocytes # (Manual) PT INR POC ABG pH POC ABG pCO2 POC ABG pO2 Sodium Potassium 3.3 L 3.5 L Chloride Carbon Dioxide 21 L 19 L BUN 76 H 69 H Creatinine 2.8 H 2.5 H Glucose 104 H 124 H POC Glucose 107 H Lactic Acid Calcium 7.6 L 7.3 L Phosphorus 1.50 L Total Bilirubin AST C-Reactive Protein Albumin Urine Creatinine Crossmatch 02/28/18 02/28/18 03/01/18 17:36 23:40 06:25 WBC RBC Hgb Hct MCV MCHC RDW Seg Neuts % (Manual) Lymphocytes % (Manual) Monocytes % (Manual) Nucleated RBC % Seg Neutrophils # Man Lymphocytes # (Manual) Monocytes # (Manual) PT INR POC ABG pH 7.542 H POC ABG pCO2 23.3 L POC ABG pO2 62 L Sodium Potassium Chloride Carbon Dioxide BUN Creatinine Glucose POC Glucose 151 H 111 H Lactic Acid Calcium Phosphorus Total Bilirubin AST C-Reactive Protein Albumin Urine Creatinine Crossmatch 03/01/18 03/01/18 03/02/18 10:00 12:12 05:21 WBC RBC Hgb Hct MCV MCHC RDW Seg Neuts % (Manual) Lymphocytes % (Manual) Monocytes % (Manual) Nucleated RBC % Seg Neutrophils # Man Lymphocytes # (Manual) Monocytes # (Manual) PT INR POC ABG pH 7.473 H POC ABG pCO2 21.5 L POC ABG pO2 79 L Sodium Potassium 3.5 L Chloride Carbon Dioxide 18 L BUN 66 H Creatinine 2.8 H Glucose 103 H POC Glucose 176 H Lactic Acid Calcium 7.5 L Phosphorus Total Bilirubin AST C-Reactive Protein Albumin Urine Creatinine Crossmatch 03/02/18 03/02/18 03/02/18 06:00 06:00 11:47 WBC 18.2 H RBC 2.43 L Hgb 7.2 L Hct 22.6 L MCV MCHC RDW 17.6 H Seg Neuts % (Manual) Lymphocytes % (Manual) Monocytes % (Manual) Nucleated RBC % Seg Neutrophils # Man Lymphocytes # (Manual) Monocytes # (Manual) PT INR POC ABG pH POC ABG pCO2 POC ABG pO2 Sodium Potassium Chloride Carbon Dioxide 17 L BUN 68 H Creatinine 3.1 H Glucose 106 H POC Glucose 136 H Lactic Acid Calcium 7.2 L Phosphorus Total Bilirubin AST C-Reactive Protein Albumin Urine Creatinine Crossmatch 03/02/18 03/03/18 03/03/18 17:35 00:54 03:38 WBC RBC Hgb Hct MCV MCHC RDW Seg Neuts % (Manual) Lymphocytes % (Manual) Monocytes % (Manual) Nucleated RBC % Seg Neutrophils # Man Lymphocytes # (Manual) Monocytes # (Manual) PT INR POC ABG pH 7.451 H POC ABG pCO2 20.5 L POC ABG pO2 Sodium Potassium Chloride Carbon Dioxide BUN Creatinine Glucose POC Glucose 109 H 131 H Lactic Acid Calcium Phosphorus Total Bilirubin AST C-Reactive Protein Albumin Urine Creatinine Crossmatch 03/03/18 03/03/18 03/03/18 06:15 06:15 08:37 WBC 21.1 H RBC 2.20 L Hgb 6.3 L Hct 20.8 L MCV 95 H MCHC 30 L RDW 17.8 H Seg Neuts % (Manual) 71.0 H Lymphocytes % (Manual) 8.0 L Monocytes % (Manual) Nucleated RBC % Seg Neutrophils # Man 15.0 H Lymphocytes # (Manual) Monocytes # (Manual) 1.3 H PT INR POC ABG pH POC ABG pCO2 POC ABG pO2 Sodium 130 L D Potassium Chloride 96.4 L Carbon Dioxide 14 L BUN 69 H Creatinine 3.1 H Glucose POC Glucose Lactic Acid Calcium 7.0 L Phosphorus Total Bilirubin AST C-Reactive Protein Albumin Urine Creatinine Crossmatch See Detail 03/03/18 03/03/18 03/03/18 09:38 12:13 18:05 WBC RBC Hgb Hct MCV MCHC RDW Seg Neuts % (Manual) Lymphocytes % (Manual) Monocytes % (Manual) Nucleated RBC % Seg Neutrophils # Man Lymphocytes # (Manual) Monocytes # (Manual) PT INR POC ABG pH POC ABG pCO2 23.8 L POC ABG pO2 156 H Sodium Potassium Chloride Carbon Dioxide BUN Creatinine Glucose POC Glucose 119 H 154 H Lactic Acid Calcium Phosphorus Total Bilirubin AST C-Reactive Protein Albumin Urine Creatinine Crossmatch 03/04/18 03/04/18 03/04/18 00:59 04:27 05:30 WBC RBC Hgb Hct MCV MCHC RDW Seg Neuts % (Manual) Lymphocytes % (Manual) Monocytes % (Manual) Nucleated RBC % Seg Neutrophils # Man Lymphocytes # (Manual) Monocytes # (Manual) PT INR POC ABG pH 7.486 H POC ABG pCO2 24.8 L POC ABG pO2 Sodium 135 L Potassium Chloride 96.2 L Carbon Dioxide 19 L BUN 69 H Creatinine 3.1 H Glucose 121 H POC Glucose 159 H Lactic Acid Calcium 7.1 L Phosphorus Total Bilirubin AST C-Reactive Protein 19.80 H Albumin Urine Creatinine Crossmatch 03/04/18 03/04/18 05:30 05:38 WBC 22.6 H RBC 2.46 L Hgb 7.1 L Hct 21.7 L MCV MCHC RDW 17.2 H Seg Neuts % (Manual) Lymphocytes % (Manual) Monocytes % (Manual) Nucleated RBC % Seg Neutrophils # Man Lymphocytes # (Manual) Monocytes # (Manual) PT INR POC ABG pH POC ABG pCO2 POC ABG pO2 Sodium Potassium Chloride Carbon Dioxide BUN Creatinine Glucose POC Glucose 134 H Lactic Acid Calcium Phosphorus Total Bilirubin AST C-Reactive Protein Albumin Urine Creatinine Crossmatch Allied health notes reviewed: RT (intra-arterial line)
[2018-03-04] MEDS: HEPARIN SUB-Q SCH ×2 (10:08→21:40)
[2018-03-04] MEDS: ZYVOX 600MG/300ML 600 MG/300 ML BAG IV SCH ×2 (10:08→21:30)
[2018-03-04] MEDS: SODIUM BICARBONATE FEEDTUBE SCH ×2 (10:08→13:04)
[2018-03-04] MEDS: PEPCID PO SCH (10:08)
[2018-03-04 10:29] LABS: Anisocytosis 1+; Band Neutrophils # (Manual) 2.3 K/mm3; Basophils % (Manual) 0 % (0.0-1.8); Eosinophils % (Manual) 0 % (0.0-4.3); Target Cells Few; Total Cells Counted 100
--- NOTE | 2018-03-04 10:46 | Progress Note ---
Assessment and Plan Impression: * Nonoliguric acute kidney injury secondary to prerenal azotemia/ATN due to dehydration vs sepsis --Baseline SCr 1.6-1.8mg/dL * Acute hypoxic respiratory failure * Sepsis * HCAP --sputum w/ MRSA, group A beta hemolytic strep * Hypernatremia secondary to dehydration - resolved * Metabolic acidosis secondary to lactic acidosis Plan: * Continue IVF--added NA bicarb, co2 is better * if refractory to medical treatment, may need manager intern, no indication today * Keep MAP>65 * prn transfusion of pRBC * Replete lytes prn * Vent management per CCM * Broad spectrum abx * Dose medications for renal function * Avoid potential nephrotoxins Subjective Date of service: 03/04/18 Principal diagnosis: Acute Hypoxemic Resp Failure; Severe Sepsis; Aspiration Pneumonai (HCAP) Interval history: resting well in bed today Objective - Exam Narrative Exam: General appearance: intubated EENT: ATNC, other (ETT in place) Respiratory: Present: Other (coarse breath sounds) Cardiology: tachycardia, S1S2 Gastrointestinal: normal, no distended Integumentary: no rash, warm and dry Musculoskeletal: other (no edema) - Vital Signs Vital signs: Vital Signs - 12hr 03/03/18 03/03/18 03/03/18 22:45 23:00 23:04 Temperature Pulse Rate 125 H 123 H 123 H Pulse Rate [ Anterior Bilateral Throughout] Pulse Rate [ From Monitor] Respiratory 29 H 28 H 27 H Rate Respiratory Rate [Anterior Bilateral Throughout] Blood Pressure 105/67 99/65 94/56 O2 Sat by Pulse 99 100 100 Oximetry 03/03/18 03/03/18 03/03/18 23:15 23:30 23:45 Temperature Pulse Rate 121 H 126 H 118 H Pulse Rate [ Anterior Bilateral Throughout] Pulse Rate [ From Monitor] Respiratory 25 H 31 H 24 Rate Respiratory Rate [Anterior Bilateral Throughout] Blood Pressure 96/62 100/70 104/55 O2 Sat by Pulse 100 100 100 Oximetry 03/04/18 03/04/18 03/04/18 00:00 00:15 00:30 Temperature 98.8 F Pulse Rate 128 H 137 H 126 H Pulse Rate [ Anterior Bilateral Throughout] Pulse Rate [ 114 H From Monitor] Respiratory 24 34 H 25 H Rate Respiratory Rate [Anterior Bilateral Throughout] Blood Pressure 99/58 104/55 95/58 O2 Sat by Pulse 99 97 98 Oximetry 03/04/18 03/04/18 03/04/18 00:45 01:00 01:15 Temperature Pulse Rate 121 H 118 H 119 H Pulse Rate [ Anterior Bilateral Throughout] Pulse Rate [ From Monitor] Respiratory 26 H 22 24 Rate Respiratory Rate [Anterior Bilateral Throughout] Blood Pressure 92/61 92/61 101/65 O2 Sat by Pulse 99 100 98 Oximetry 03/04/18 03/04/18 03/04/18 01:30 01:45 02:00 Temperature Pulse Rate 120 H 124 H 121 H Pulse Rate [ Anterior Bilateral Throughout] Pulse Rate [ From Monitor] Respiratory 25 H 28 H 24 Rate Respiratory Rate [Anterior Bilateral Throughout] Blood Pressure 102/65 107/72 108/73 O2 Sat by Pulse 98 98 98 Oximetry 03/04/18 03/04/18 03/04/18 02:15 02:30 02:45 Temperature Pulse Rate 123 H 125 H 124 H Pulse Rate [ Anterior Bilateral Throughout] Pulse Rate [ From Monitor] Respiratory 28 H 30 H 28 H Rate Respiratory Rate [Anterior Bilateral Throughout] Blood Pressure 116/67 101/71 97/63 O2 Sat by Pulse 99 97 99 Oximetry 03/04/18 03/04/18 03/04/18 03:00 03:01 03:15 Temperature 100.1 F H Pulse Rate 123 H 126 H Pulse Rate [ Anterior Bilateral Throughout] Pulse Rate [ From Monitor] Respiratory 26 H 31 H Rate Respiratory Rate [Anterior Bilateral Throughout] Blood Pressure 95/65 104/69 O2 Sat by Pulse 98 100 Oximetry 03/04/18 03/04/18 03/04/18 03:30 03:45 04:00 Temperature Pulse Rate 126 H 123 H 122 H Pulse Rate [ Anterior Bilateral Throughout] Pulse Rate [ 125 H From Monitor] Respiratory 28 H 27 H 25 H Rate Respiratory Rate [Anterior Bilateral Throughout] Blood Pressure 109/64 96/59 87/58 O2 Sat by Pulse 98 99 100 Oximetry 03/04/18 03/04/18 03/04/18 04:15 04:30 04:45 Temperature Pulse Rate 123 H 125 H 130 H Pulse Rate [ Anterior Bilateral Throughout] Pulse Rate [ From Monitor] Respiratory 25 H 24 23 Rate Respiratory Rate [Anterior Bilateral Throughout] Blood Pressure 91/60 107/68 102/62 O2 Sat by Pulse 100 99 99 Oximetry 03/04/18 03/04/18 03/04/18 05:01 05:15 05:30 Temperature Pulse Rate 130 H 128 H 129 H Pulse Rate [ Anterior Bilateral Throughout] Pulse Rate [ From Monitor] Respiratory 21 29 H 35 H Rate Respiratory Rate [Anterior Bilateral Throughout] Blood Pressure 107/76 107/76 110/61 O2 Sat by Pulse 98 99 98 Oximetry 03/04/18 03/04/18 03/04/18 05:45 06:00 06:15 Temperature Pulse Rate 127 H 133 H 137 H Pulse Rate [ Anterior Bilateral Throughout] Pulse Rate [ From Monitor] Respiratory 28 H 40 H 32 H Rate Respiratory Rate [Anterior Bilateral Throughout] Blood Pressure 105/56 101/63 O2 Sat by Pulse 100 95 Oximetry 03/04/18 03/04/18 03/04/18 06:30 06:45 07:01 Temperature Pulse Rate 129 H 127 H 118 H Pulse Rate [ Anterior Bilateral Throughout] Pulse Rate [ From Monitor] Respiratory 26 H 21 17 Rate Respiratory Rate [Anterior Bilateral Throughout] Blood Pressure 119/56 104/67 94/55 O2 Sat by Pulse 97 99 100 Oximetry 03/04/18 03/04/18 03/04/18 07:15 07:30 07:45 Temperature Pulse Rate 116 H 116 H 118 H Pulse Rate [ Anterior Bilateral Throughout] Pulse Rate [ From Monitor] Respiratory 17 17 21 Rate Respiratory Rate [Anterior Bilateral Throughout] Blood Pressure 88/53 91/58 115/67 O2 Sat by Pulse 100 100 100 Oximetry 03/04/18 03/04/18 03/04/18 08:00 08:15 08:24 Temperature 98.7 F Pulse Rate 117 H 120 H 118 H Pulse Rate [ 118 H Anterior Bilateral Throughout] Pulse Rate [ 117 H From Monitor] Respiratory 19 20 Rate Respiratory 21 Rate [Anterior Bilateral Throughout] Blood Pressure 115/67 114/66 114/66 O2 Sat by Pulse 100 100 100 Oximetry 03/04/18 03/04/18 03/04/18 08:30 08:35 08:45 Temperature Pulse Rate 120 H 117 H Pulse Rate [ 117 H Anterior Bilateral Throughout] Pulse Rate [ From Monitor] Respiratory 21 19 Rate Respiratory 20 Rate [Anterior Bilateral Throughout] Blood Pressure 104/69 108/59 O2 Sat by Pulse 100 100 Oximetry - Lab 03/04/18 05:30 03/04/18 05:30 Most recent lab results Calcium 7.1 mg/dL (8.4-10.2) L 03/04/18 05:30 Phosphorus 1.50 mg/dL (2.5-4.5) L 02/28/18 17:10 Magnesium 2.00 mg/dL (1.7-2.3) 02/28/18 17:10 Urine Creatinine 38.6 mg/dL (0.1-20.0) H 02/26/18 13:08 Urine Sodium 67 mmol/L 02/26/18 13:08
[2018-03-04] MEDS ORDERED: REGLAN IV ONE (12:00)
--- NOTE | 2018-03-04 12:00 | Progress Note ---
Assessment and Plan The high probability of a clinically significant, sudden or life threatening deterioration of the [Pulmonary, cadiac, renal] system(s) required my full and direct attention, intervention and personal management. The aggregate critical care time was [45] minutes. This time is in addition to time spent performing reported procedures but includes the following: [x] Data Review and interpretation [x] Patient assessment and monitoring of vital signs [x] Documentation [x] Medication orders and management - Patient Problems (1) Septic shock Current Visit: Yes Status: Acute Plan to address problem: Severe sepsis with septic shock: increased levophed after cardiac arrest, leukocytosis is up, still fever; source pneumonia Complicated Multilobar pneumonia: due to MRSA and GAS (2) Acute hypoxemic respiratory failure Current Visit: Yes Status: Acute Plan to address problem: Patient on Vent Multilobar PNA On IV Abx--Clindamycin and Zyvox (3) Acute encephalopathy Current Visit: No Status: Acute Plan to address problem: Secondary to sepsis (4) Acute on chronic renal failure Current Visit: Yes Status: Acute Qualifiers: Acute renal failure type: unspecified Chronic kidney disease stage: unspecified stage Qualified Code(s): N17.9 - Acute kidney failure, unspecified ; N18.9 - Chronic kidney disease, unspecified Plan to address problem: IV fluids for now Nephrology consulted (5) Dehydration, severe Current Visit: Yes Status: Acute Plan to address problem: IV fluids for now (6) Sepsis Current Visit: Yes Status: Acute Qualifiers: Sepsis type: sepsis due to unspecified organism Qualified Code(s): A41.9 - Sepsis, unspecified organism Plan to address problem: On Clinda and Zyvox (7) Hypertension Current Visit: Yes Status: Chronic Qualifiers: Hypertension type: essential hypertension Qualified Code(s): I10 - Essential (primary) hypertension Plan to address problem: We will hold antihypertensives because of the hypotension (8) BPH (benign prostatic hyperplasia) Current Visit: Yes Status: Chronic Qualifiers: Lower urinary tract symptom presence: symptoms present Plan to address problem: Continue finasteride (9) Hyperlipidemia Current Visit: Yes Status: Chronic Qualifiers: Hyperlipidemia type: mixed hyperlipidemia Qualified Code(s): E78.2 - Mixed hyperlipidemia Plan to address problem: Hold statins for now (10) DVT prophylaxis Current Visit: No Status: Acute Plan to address problem: Heparin 5000 subcutaneous every 12 Subjective Date of service: 03/04/18 Principal diagnosis: Acute Hypoxemic Resp Failure; Severe Sepsis; Aspiration Pneumonai (HCAP) Interval history: S/p cardiac arrest Objective - Exam Narrative Exam: Patient on BiPAP and severe respiratory distress - Constitutional Vitals: Vital Signs - 12hr 03/04/18 03/04/18 03/04/18 00:00 00:15 00:30 Temperature 98.8 F Pulse Rate 128 H 137 H 126 H Pulse Rate [ Anterior Bilateral Throughout] Pulse Rate [ 114 H From Monitor] Respiratory 24 34 H 25 H Rate Respiratory Rate [Anterior Bilateral Throughout] Blood Pressure 99/58 104/55 95/58 O2 Sat by Pulse 99 97 98 Oximetry 03/04/18 03/04/18 03/04/18 00:45 01:00 01:15 Temperature Pulse Rate 121 H 118 H 119 H Pulse Rate [ Anterior Bilateral Throughout] Pulse Rate [ From Monitor] Respiratory 26 H 22 24 Rate Respiratory Rate [Anterior Bilateral Throughout] Blood Pressure 92/61 92/61 101/65 O2 Sat by Pulse 99 100 98 Oximetry 03/04/18 03/04/18 03/04/18 01:30 01:45 02:00 Temperature Pulse Rate 120 H 124 H 121 H Pulse Rate [ Anterior Bilateral Throughout] Pulse Rate [ From Monitor] Respiratory 25 H 28 H 24 Rate Respiratory Rate [Anterior Bilateral Throughout] Blood Pressure 102/65 107/72 108/73 O2 Sat by Pulse 98 98 98 Oximetry 03/04/18 03/04/18 03/04/18 02:15 02:30 02:45 Temperature Pulse Rate 123 H 125 H 124 H Pulse Rate [ Anterior Bilateral Throughout] Pulse Rate [ From Monitor] Respiratory 28 H 30 H 28 H Rate Respiratory Rate [Anterior Bilateral Throughout] Blood Pressure 116/67 101/71 97/63 O2 Sat by Pulse 99 97 99 Oximetry 03/04/18 03/04/18 03/04/18 03:00 03:01 03:15 Temperature 100.1 F H Pulse Rate 123 H 126 H Pulse Rate [ Anterior Bilateral Throughout] Pulse Rate [ From Monitor] Respiratory 26 H 31 H Rate Respiratory Rate [Anterior Bilateral Throughout] Blood Pressure 95/65 104/69 O2 Sat by Pulse 98 100 Oximetry 03/04/18 03/04/18 03/04/18 03:30 03:45 04:00 Temperature Pulse Rate 126 H 123 H 122 H Pulse Rate [ Anterior Bilateral Throughout] Pulse Rate [ 125 H From Monitor] Respiratory 28 H 27 H 25 H Rate Respiratory Rate [Anterior Bilateral Throughout] Blood Pressure 109/64 96/59 87/58 O2 Sat by Pulse 98 99 100 Oximetry 03/04/18 03/04/18 03/04/18 04:15 04:30 04:45 Temperature Pulse Rate 123 H 125 H 130 H Pulse Rate [ Anterior Bilateral Throughout] Pulse Rate [ From Monitor] Respiratory 25 H 24 23 Rate Respiratory Rate [Anterior Bilateral Throughout] Blood Pressure 91/60 107/68 102/62 O2 Sat by Pulse 100 99 99 Oximetry 03/04/18 03/04/18 03/04/18 05:01 05:15 05:30 Temperature Pulse Rate 130 H 128 H 129 H Pulse Rate [ Anterior Bilateral Throughout] Pulse Rate [ From Monitor] Respiratory 21 29 H 35 H Rate Respiratory Rate [Anterior Bilateral Throughout] Blood Pressure 107/76 107/76 110/61 O2 Sat by Pulse 98 99 98 Oximetry 03/04/18 03/04/18 03/04/18 05:45 06:00 06:15 Temperature Pulse Rate 127 H 133 H 137 H Pulse Rate [ Anterior Bilateral Throughout] Pulse Rate [ From Monitor] Respiratory 28 H 40 H 32 H Rate Respiratory Rate [Anterior Bilateral Throughout] Blood Pressure 105/56 101/63 O2 Sat by Pulse 100 95 Oximetry 03/04/18 03/04/18 03/04/18 06:30 06:45 07:01 Temperature Pulse Rate 129 H 127 H 118 H Pulse Rate [ Anterior Bilateral Throughout] Pulse Rate [ From Monitor] Respiratory 26 H 21 17 Rate Respiratory Rate [Anterior Bilateral Throughout] Blood Pressure 119/56 104/67 94/55 O2 Sat by Pulse 97 99 100 Oximetry 03/04/18 03/04/18 03/04/18 07:15 07:30 07:45 Temperature Pulse Rate 116 H 116 H 118 H Pulse Rate [ Anterior Bilateral Throughout] Pulse Rate [ From Monitor] Respiratory 17 17 21 Rate Respiratory Rate [Anterior Bilateral Throughout] Blood Pressure 88/53 91/58 115/67 O2 Sat by Pulse 100 100 100 Oximetry 03/04/18 03/04/18 03/04/18 08:00 08:15 08:24 Temperature 98.7 F Pulse Rate 117 H 120 H 118 H Pulse Rate [ 118 H Anterior Bilateral Throughout] Pulse Rate [ 117 H From Monitor] Respiratory 19 20 Rate Respiratory 21 Rate [Anterior Bilateral Throughout] Blood Pressure 115/67 114/66 114/66 O2 Sat by Pulse 100 100 100 Oximetry 03/04/18 03/04/18 03/04/18 08:30 08:35 08:45 Temperature Pulse Rate 120 H 117 H Pulse Rate [ 117 H Anterior Bilateral Throughout] Pulse Rate [ From Monitor] Respiratory 21 19 Rate Respiratory 20 Rate [Anterior Bilateral Throughout] Blood Pressure 104/69 108/59 O2 Sat by Pulse 100 100 Oximetry General appearance: Present: no acute distress, well-nourished - EENT Eyes: PERRL, EOM intact ENT: hearing intact, clear oral mucosa Ears: bilateral: normal - Neck Neck: supple, normal ROM - Respiratory Respiratory effort: normal Respiratory: bilateral: CTA - Breasts Breasts: normal - Cardiovascular Rhythm: regular Heart Sounds: Present: S1 & S2. Absent: gallop, rub Extremities: pulses intact, No edema, normal color, Full ROM - Gastrointestinal General gastrointestinal: Present: soft, non-tender, non-distended, normal bowel sounds - Genitourinary Male genitourinary: normal - Integumentary Integumentary: clear, warm, dry - Musculoskeletal Musculoskeletal: 1, strength equal bilaterally - Neurologic Neurologic: moves all extremities - Psychiatric Psychiatric: memory intact, appropriate mood/affect, intact judgment & insight - Labs CBC & Chem 7: 03/04/18 05:30 03/04/18 05:30 Labs: Abnormal lab results 03/03/18 03/03/18 03/03/18 Range/Units 08:37 12:13 18:05 WBC (4.5-11.0) K/mm3 RBC (3.65-5.03) M/mm3 Hgb (11.8-15.2) gm/dl Hct (35.5-45.6) % RDW (13.2-15.2) % Seg Neuts % (Manual) (40.0-70.0) % Lymphocytes % (Manual) (13.4-35.0) % Seg Neutrophils # Man (1.8-7.7) K/mm3 Lymphocytes # (Manual) (1.2-5.4) K/mm3 POC ABG pH (7.35-7.45) POC ABG pCO2 (35-45) Sodium (137-145) mmol/L Chloride (98-107) mmol/L Carbon Dioxide (22-30) mmol/L BUN (9-20) mg/dL Creatinine (0.8-1.5) mg/dL Glucose (75-100) mg/dL POC Glucose 119 H 154 H (70-105) Calcium (8.4-10.2) mg/dL C-Reactive Protein (0.00-1.30) mg/dL Crossmatch See Detail 03/04/18 03/04/18 03/04/18 Range/Units 00:59 04:27 05:30 WBC (4.5-11.0) K/mm3 RBC (3.65-5.03) M/mm3 Hgb (11.8-15.2) gm/dl Hct (35.5-45.6) % RDW (13.2-15.2) % Seg Neuts % (Manual) (40.0-70.0) % Lymphocytes % (Manual) (13.4-35.0) % Seg Neutrophils # Man (1.8-7.7) K/mm3 Lymphocytes # (Manual) (1.2-5.4) K/mm3 POC ABG pH 7.486 H (7.35-7.45) POC ABG pCO2 24.8 L (35-45) Sodium 135 L (137-145) mmol/L Chloride 96.2 L (98-107) mmol/L Carbon Dioxide 19 L (22-30) mmol/L BUN 69 H (9-20) mg/dL Creatinine 3.1 H (0.8-1.5) mg/dL Glucose 121 H (75-100) mg/dL POC Glucose 159 H (70-105) Calcium 7.1 L (8.4-10.2) mg/dL C-Reactive Protein 19.80 H (0.00-1.30) mg/dL Crossmatch 03/04/18 03/04/18 03/04/18 Range/Units 05:30 05:38 11:47 WBC 22.6 H (4.5-11.0) K/mm3 RBC 2.46 L (3.65-5.03) M/mm3 Hgb 7.1 L (11.8-15.2) gm/dl Hct 21.7 L (35.5-45.6) % RDW 17.2 H (13.2-15.2) % Seg Neuts % (Manual) 84.0 H (40.0-70.0) % Lymphocytes % (Manual) 5.0 L (13.4-35.0) % Seg Neutrophils # Man 19.0 H (1.8-7.7) K/mm3 Lymphocytes # (Manual) 1.1 L (1.2-5.4) K/mm3 POC ABG pH (7.35-7.45) POC ABG pCO2 (35-45) Sodium (137-145) mmol/L Chloride (98-107) mmol/L Carbon Dioxide (22-30) mmol/L BUN (9-20) mg/dL Creatinine (0.8-1.5) mg/dL Glucose (75-100) mg/dL POC Glucose 134 H 109 H (70-105) Calcium (8.4-10.2) mg/dL C-Reactive Protein (0.00-1.30) mg/dL Crossmatch
--- NOTE | 2018-03-04 17:17 | Progress Note ---
Assessment and Plan Assessment: 1) Severe sepsis with septic shock: increased levophed at 12 after cardiac arrest, leukocytosis is up, still fever; source pneumonia 2) Complicated Multilobar pneumonia: due to MRSA and GAS 3) Acute respiratory failure: on the vent 4) Acute encephalopathy 5) DIANNA - better 6) History of CVA 7) S/p cardiac arrest Plan: -recheck bloodd ca -continue zyvox IV D6 -continue penicillin G and Clindamycin IV D4 -consider repeat chest CT to eval for lung abscesses -contact isolation Guarded prognosis Thanks Mimi Lay MD Subjective Date of service: 03/04/18 Principal diagnosis: Acute Hypoxemic Resp Failure; Severe Sepsis; Aspiration Pneumonai (HCAP) Interval history: Remains on the vent, alert, n levophed at 4. S/p cardiac arrest on VT then PEA s /p CPR yesterday, tmax 100.1 Micro: Blood cx 02/26 ngtd Urine cx 02/26 neg Tracheal asp 02/26 MRSA and GAS x 2 Current Abx: zyvox 02/28 clinda 03/01 pen G 03/01 Previous Abx: zosyn vanco Objective - Exam Narrative Exam: Sedated eyes open on the vent NC/AT, ASH, OP with ETT, OGT Neck no LNs Lungs josh scattered rhonchi CV tachycardic Abd soft distended Ext +josh leg edema Neuro sedated Skin no rash Lines: shrestha and right fem TLC - Constitutional Vitals: Vital Signs Temp Pulse Resp BP Pulse Ox 98.9 F 119 H 20 90/60 100 03/04/18 12:00 03/04/18 16:15 03/04/18 16:15 03/04/18 16:15 03/04/18 16:15 Temperature -Last 24 Hours Temperature 98.9 F Temperature 98.7 F Temperature 100.1 F Temperature 98.8 F Temperature 98.9 F - Labs CBC & Chem 7: 03/04/18 05:30 03/04/18 05:30 Labs: Abnormal lab results 03/03/18 03/04/18 03/04/18 Range/Units 18:05 00:59 04:27 WBC (4.5-11.0) K/mm3 RBC (3.65-5.03) M/mm3 Hgb (11.8-15.2) gm/dl Hct (35.5-45.6) % RDW (13.2-15.2) % Seg Neuts % (Manual) (40.0-70.0) % Lymphocytes % (Manual) (13.4-35.0) % Seg Neutrophils # Man (1.8-7.7) K/mm3 Lymphocytes # (Manual) (1.2-5.4) K/mm3 POC ABG pH 7.486 H (7.35-7.45) POC ABG pCO2 24.8 L (35-45) Sodium (137-145) mmol/L Chloride (98-107) mmol/L Carbon Dioxide (22-30) mmol/L BUN (9-20) mg/dL Creatinine (0.8-1.5) mg/dL Glucose (75-100) mg/dL POC Glucose 154 H 159 H (70-105) Calcium (8.4-10.2) mg/dL C-Reactive Protein (0.00-1.30) mg/dL 03/04/18 03/04/18 03/04/18 Range/Units 05:30 05:30 05:38 WBC 22.6 H (4.5-11.0) K/mm3 RBC 2.46 L (3.65-5.03) M/mm3 Hgb 7.1 L (11.8-15.2) gm/dl Hct 21.7 L (35.5-45.6) % RDW 17.2 H (13.2-15.2) % Seg Neuts % (Manual) 84.0 H (40.0-70.0) % Lymphocytes % (Manual) 5.0 L (13.4-35.0) % Seg Neutrophils # Man 19.0 H (1.8-7.7) K/mm3 Lymphocytes # (Manual) 1.1 L (1.2-5.4) K/mm3 POC ABG pH (7.35-7.45) POC ABG pCO2 (35-45) Sodium 135 L (137-145) mmol/L Chloride 96.2 L (98-107) mmol/L Carbon Dioxide 19 L (22-30) mmol/L BUN 69 H (9-20) mg/dL Creatinine 3.1 H (0.8-1.5) mg/dL Glucose 121 H (75-100) mg/dL POC Glucose 134 H (70-105) Calcium 7.1 L (8.4-10.2) mg/dL C-Reactive Protein 19.80 H (0.00-1.30) mg/dL 03/04/18 Range/Units 11:47 WBC (4.5-11.0) K/mm3 RBC (3.65-5.03) M/mm3 Hgb (11.8-15.2) gm/dl Hct (35.5-45.6) % RDW (13.2-15.2) % Seg Neuts % (Manual) (40.0-70.0) % Lymphocytes % (Manual) (13.4-35.0) % Seg Neutrophils # Man (1.8-7.7) K/mm3 Lymphocytes # (Manual) (1.2-5.4) K/mm3 POC ABG pH (7.35-7.45) POC ABG pCO2 (35-45) Sodium (137-145) mmol/L Chloride (98-107) mmol/L Carbon Dioxide (22-30) mmol/L BUN (9-20) mg/dL Creatinine (0.8-1.5) mg/dL Glucose (75-100) mg/dL POC Glucose 109 H (70-105) Calcium (8.4-10.2) mg/dL C-Reactive Protein (0.00-1.30) mg/dL
--- NOTE | 2018-03-04 23:07 | Cat Scan Report ---
FINAL REPORT PROCEDURE: CT HEAD/BRAIN WO CON TECHNIQUE: Computerized tomography of the head was performed without contrast material. HISTORY: headache COMPARISON: 12/26/2017 FINDINGS: 2.8 x 2.2 centimeter diffusely calcified lesion with a broad meningeal base in the left frontal region is again identified most consistent with calcified meningioma. Cerebral sulci and ventricles are prominent consistent with cerebral atrophy appropriate for patient's age. Diffuse hypodensity is noted involving predominantly right temporal lobe and extending into the right parietal lobe with effacement of underlying sulci. 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 Irregular areas of encephalomalacia are noted involving right frontal lobe and left cerebellar hemisphere. An acute intra-axial or extra-axial hemorrhage is not identified. Atherosclerotic calcification is noted involving bilateral internal carotid and vertebral arteries. An air-fluid level is noted in left maxillary sinus. There also partial opacification of bilateral mastoid air cells. A well-defined subcutaneous cystic lesion involving the left mastoid region is again identified measuring 2.3 by 1.4 centimeters. IMPRESSION: There is evidence of acute/subacute infarct involving right MCA territory. 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 Acute left maxillary sinusitis Bilateral mastoiditis
[2018-03-05] MEDS: BABY ASPIRIN PO SCH ×2 (00:03→22:23)
[2018-03-05] MEDS: LEVOPHED DRIP 4 MG/NS 250 ML 4 MG/250 ML BAG IV SCH ×3 (00:21→10:07)
[2018-03-05] MEDS ORDERED: KEPPRA 1,000 MG/NS 0.75% 100ML 1,000 MG/100 ML BAG IV ONE (01:46)
[2018-03-05] MEDS ORDERED: ATIVAN IV PRN (01:56)
--- NOTE | 2018-03-05 02:44 | XRay Report ---
FINAL REPORT PROCEDURE: XR CHEST 1V AP TECHNIQUE: Chest radiograph anteroposterior view. CPT 05909 HISTORY: follow up respiratory failure COMPARISON: 03/03/2018 FINDINGS: Heart: Normal. Mediastinum/Vessels: Normal. Lungs/Pleural space: Slightly improved vascular congestion. Scattered densities both lungs may represent slight infiltrates. No effusion or pneumothorax. Bony thorax: No acute osseous abnormality. Life support devices: There is an endotracheal tube this ends 5 centimeters above the jose luis. Left PICC catheter ends in the SVC. IMPRESSION: Slightly improved vascular congestion with bilateral scattered infiltrates both lung bases. Endotracheal tube and PICC catheter are properly positioned..
[2018-03-05] MEDS: HumuLIN R SUB-Q SCH ×4 (02:49→16:59)
[2018-03-05] MEDS: SODIUM CHLORIDE FLUSH SYRINGE 10 ML IV SCH ×2 (03:00→09:09)
[2018-03-05 05:51] LABS: Hematocrit 20.3 % (35.5-45.6); Hemoglobin 6.8 gm/dl (11.8-15.2); Mean Corpuscular HGB Conc 34 % (32-34); Mean Corpuscular Hemoglobin 30 pg (28-32); Mean Corpuscular Volume 88 fl (84-94); Platelet Count 231 K/mm3 (140-440); Red Blood Count 2.29 M/mm3 (3.65-5.03); Red Cell Distribution Width 16.7 % (13.2-15.2)
[2018-03-05 05:59] LABS: Calcium 6.9 mg/dL (8.4-10.2)
[2018-03-05] MEDS: CLEOCIN 600 MG/50 mL 600 MG/50 ML BAG IV SCH ×3 (06:10→22:24)
[2018-03-05] MEDS: PFIZERPEN 4 MIL.UNITS in NACL 0.9% 50 ML IV SCH ×3 (06:15→18:24)
[2018-03-05] MEDS: SODIUM BICARBONATE FEEDTUBE SCH ×4 (07:27→22:21)
[2018-03-05 07:40] LABS: Anisocytosis 1+; Band Neutrophils # (Manual) 1.9 K/mm3; Basophils % (Manual) 0 % (0.0-1.8); Eosinophils % (Manual) 0 % (0.0-4.3); Hypochromasia 1+; Total Cells Counted 100
[2018-03-05 07:41] LABS: Platelet Estimate Consistent w Auto
[2018-03-05] MEDS: DUONEB *Not for PRN Use IH SCH ×4 (08:19→23:50)
[2018-03-05] MEDS: SODIUM BICARBONATE 150 MEQ, KCL 20 MEQ in D5W 1,000 ML IV SCH ×2 (09:06→18:37)
[2018-03-05] MEDS: HEPARIN SUB-Q SCH ×2 (09:08→22:24)
[2018-03-05] MEDS: PEPCID PO SCH (09:08)
--- NOTE | 2018-03-05 10:17 | Progress Note ---
Assessment and Plan Impression: * Nonoliguric acute kidney injury secondary to prerenal azotemia/ATN due to dehydration vs sepsis --Baseline SCr 1.6-1.8mg/dL * Acute hypoxic respiratory failure * Sepsis * HCAP --sputum w/ MRSA, group A beta hemolytic strep * Hypernatremia secondary to dehydration - resolved * Metabolic acidosis secondary to lactic acidosis Plan: * Continue IVF--added NA bicarb, co2 is better * if refractory to medical treatment, may need reshipping clerk, no indication today * Keep MAP>65 * prn transfusion of pRBC * Replete lytes prn * Vent management per CCM * Broad spectrum abx * Dose medications for renal function * Avoid potential nephrotoxins Subjective Date of service: 03/05/18 Principal diagnosis: Acute Hypoxemic Resp Failure; Severe Sepsis; Aspiration Pneumonai (HCAP) Interval history: resting well in bed today Objective - Exam Narrative Exam: General appearance: intubated EENT: ATNC, other (ETT in place) Respiratory: Present: Other (coarse breath sounds) Cardiology: tachycardia, S1S2 Gastrointestinal: normal, no distended Integumentary: no rash, warm and dry Musculoskeletal: other (no edema) - Vital Signs Vital signs: Vital Signs - 12hr 03/04/18 03/04/18 03/04/18 22:45 23:00 23:15 Temperature Pulse Rate 135 H 130 H 129 H Pulse Rate [ Anterior Bilateral Throughout] Respiratory 34 H 25 H 25 H Rate Respiratory Rate [Anterior Bilateral Throughout] Blood Pressure 98/65 133/70 101/66 O2 Sat by Pulse 96 90 92 Oximetry 03/04/18 03/04/18 03/05/18 23:30 23:45 00:00 Temperature 98.5 F Pulse Rate 127 H 124 H 129 H Pulse Rate [ 126 H Anterior Bilateral Throughout] Respiratory 21 25 H 21 Rate Respiratory 22 Rate [Anterior Bilateral Throughout] Blood Pressure 110/68 114/66 105/63 O2 Sat by Pulse 93 94 96 Oximetry 03/05/18 03/05/18 03/05/18 00:03 00:15 00:30 Temperature Pulse Rate 128 H 128 H 125 H Pulse Rate [ Anterior Bilateral Throughout] Respiratory 20 21 21 Rate Respiratory Rate [Anterior Bilateral Throughout] Blood Pressure 118/73 105/63 113/62 O2 Sat by Pulse 96 93 94 Oximetry 03/05/18 03/05/18 03/05/18 00:45 01:00 01:15 Temperature Pulse Rate 123 H 123 H 120 H Pulse Rate [ Anterior Bilateral Throughout] Respiratory 18 20 20 Rate Respiratory Rate [Anterior Bilateral Throughout] Blood Pressure 107/56 100/62 95/58 O2 Sat by Pulse 93 95 95 Oximetry 03/05/18 03/05/18 03/05/18 01:30 01:45 02:00 Temperature Pulse Rate 131 H 124 H 130 H Pulse Rate [ Anterior Bilateral Throughout] Respiratory 26 H 20 27 H Rate Respiratory Rate [Anterior Bilateral Throughout] Blood Pressure 114/83 100/55 100/55 O2 Sat by Pulse 94 94 Oximetry 03/05/18 03/05/18 03/05/18 02:15 02:30 02:45 Temperature Pulse Rate 134 H 138 H 134 H Pulse Rate [ Anterior Bilateral Throughout] Respiratory Rate Respiratory Rate [Anterior Bilateral Throughout] Blood Pressure 130/50 113/75 89/54 O2 Sat by Pulse 90 90 93 Oximetry 03/05/18 03/05/18 03/05/18 03:00 03:15 03:30 Temperature Pulse Rate 129 H 128 H 129 H Pulse Rate [ Anterior Bilateral Throughout] Respiratory Rate Respiratory Rate [Anterior Bilateral Throughout] Blood Pressure 80/45 92/50 92/48 O2 Sat by Pulse 92 91 91 Oximetry 03/05/18 03/05/18 03/05/18 03:40 03:45 04:00 Temperature 99.8 F H Pulse Rate 129 H 133 H Pulse Rate [ Anterior Bilateral Throughout] Respiratory Rate Respiratory Rate [Anterior Bilateral Throughout] Blood Pressure 93/47 127/70 O2 Sat by Pulse 91 96 Oximetry 03/05/18 03/05/18 03/05/18 04:01 04:15 04:30 Temperature Pulse Rate 125 H 124 H 124 H Pulse Rate [ Anterior Bilateral Throughout] Respiratory Rate Respiratory Rate [Anterior Bilateral Throughout] Blood Pressure 85/47 95/53 83/50 O2 Sat by Pulse 91 91 90 Oximetry 03/05/18 03/05/18 03/05/18 04:45 05:00 05:15 Temperature Pulse Rate 122 H 116 H 129 H Pulse Rate [ Anterior Bilateral Throughout] Respiratory Rate Respiratory Rate [Anterior Bilateral Throughout] Blood Pressure 81/45 77/38 127/70 O2 Sat by Pulse 90 78 L 96 Oximetry 03/05/18 03/05/18 03/05/18 05:30 05:45 06:00 Temperature Pulse Rate 131 H 125 H 123 H Pulse Rate [ Anterior Bilateral Throughout] Respiratory Rate Respiratory Rate [Anterior Bilateral Throughout] Blood Pressure 124/74 85/50 97/66 O2 Sat by Pulse 94 96 95 Oximetry 03/05/18 03/05/18 03/05/18 06:15 06:30 06:45 Temperature Pulse Rate 128 H 124 H 124 H Pulse Rate [ Anterior Bilateral Throughout] Respiratory Rate Respiratory Rate [Anterior Bilateral Throughout] Blood Pressure 108/70 109/64 120/72 O2 Sat by Pulse 95 95 96 Oximetry 03/05/18 03/05/18 03/05/18 07:00 07:15 07:30 Temperature Pulse Rate 126 H 126 H 124 H Pulse Rate [ Anterior Bilateral Throughout] Respiratory Rate Respiratory Rate [Anterior Bilateral Throughout] Blood Pressure 125/69 131/76 139/76 O2 Sat by Pulse 97 95 96 Oximetry 03/05/18 03/05/18 03/05/18 07:45 08:00 08:15 Temperature Pulse Rate 124 H 125 H 125 H Pulse Rate [ Anterior Bilateral Throughout] Respiratory Rate Respiratory Rate [Anterior Bilateral Throughout] Blood Pressure 135/78 141/81 125/73 O2 Sat by Pulse 97 97 96 Oximetry 03/05/18 03/05/18 08:19 08:30 Temperature Pulse Rate 124 H 125 H Pulse Rate [ 124 H 127 H Anterior Bilateral Throughout] Respiratory Rate Respiratory 27 H 28 H Rate [Anterior Bilateral Throughout] Blood Pressure 140/77 140/77 O2 Sat by Pulse 99 97 Oximetry - Lab 03/05/18 05:15 03/05/18 05:15 Most recent lab results Calcium 6.9 mg/dL (8.4-10.2) L 03/05/18 05:15 Phosphorus 1.50 mg/dL (2.5-4.5) L 02/28/18 17:10 Magnesium 1.40 mg/dL (1.7-2.3) L 03/03/18 12:37 Urine Creatinine 38.6 mg/dL (0.1-20.0) H 02/26/18 13:08 Urine Sodium 67 mmol/L 02/26/18 13:08
--- NOTE | 2018-03-05 10:32 | Progress Note ---
Assessment and Plan Severe sepsis with septic shock. Aspiration pneumonia, healthcare associated. Acute hypoxemic respiratory failure on MVS Acute right MCA stroke Acute on chronic encephalopathy. Acute on chronic kidney injury. Anemia. Hypernatremia. Metabolic acidosis/lactic acidosis. Leukocytosis History of hypertension. History of diabetes. History of Alzheimer dementia. - continue full MVS for now -secondary stroke prophylaxis, get Neurology consult -Antiseizure medications...Keprra 500mg bid - continue bronchodilators with pulmonary hygiene per RT - continue to wean FiO2 for sats > 90% - addressing VAP bundle daily - strict I's & O's re: DIANNA and will leave shrestha catheter in place for now, especially with worsening renal function - Once hemodynamically normal and off vasopressor support, initiate volume restrictive strategies - trend CRP and lactate prn - continue enteral nutrition as tolerated - continue mobility protocol for pressure ulcer prophylaxis - continue GI & VTE prophylaxis - continue antibiotics deescalate an adjust based on culture results and MICAELA - Antibiotics per ID - contact precautions - MRSA from trach aspirate - continue other care per attending / other consultants The high probability of a clinically significant, sudden or life threatening deterioration of the [cardiac, neurology, respiratory and GI] system(s) required my full and direct attention, intervention and personal management. The aggregate critical care time was [35] minutes without overlap. Time includes spent on; [x] Data Review and interpretation [x] Patient assessment and monitoring of vital signs [x] Documentation [x] Medication orders and management Subjective Date of service: 03/05/18 Principal diagnosis: Acute Hypoxemic Resp Failure; Severe Sepsis; Aspiration Pneumonai (HCAP) Interval history: Seen and examined. Vitals, labs, medications, chart and imaging reviewed. On going bradycardia with ongoing need for vasopressor suppport. Continues to remain critically ill on full ventilatory and on going vasopressor support. Discussed with RT and RN at the bedside Overnight events...I was called late last night with report of new onset seizures. They were reported as tonic-clonic and witnessed by RN. I ordered a stat CT head, which the radiologist called in as frontal meningioma with new acute right MCA infarct. Objective Vital Signs - 12hr 03/04/18 03/04/18 03/04/18 22:45 23:00 23:15 Temperature Pulse Rate 135 H 130 H 129 H Pulse Rate [ Anterior Bilateral Throughout] Respiratory 34 H 25 H 25 H Rate Respiratory Rate [Anterior Bilateral Throughout] Blood Pressure 98/65 133/70 101/66 O2 Sat by Pulse 96 90 92 Oximetry 03/04/18 03/04/18 03/05/18 23:30 23:45 00:00 Temperature 98.5 F Pulse Rate 127 H 124 H 129 H Pulse Rate [ 126 H Anterior Bilateral Throughout] Respiratory 21 25 H 21 Rate Respiratory 22 Rate [Anterior Bilateral Throughout] Blood Pressure 110/68 114/66 105/63 O2 Sat by Pulse 93 94 96 Oximetry 03/05/18 03/05/18 03/05/18 00:03 00:15 00:30 Temperature Pulse Rate 128 H 128 H 125 H Pulse Rate [ Anterior Bilateral Throughout] Respiratory 20 21 21 Rate Respiratory Rate [Anterior Bilateral Throughout] Blood Pressure 118/73 105/63 113/62 O2 Sat by Pulse 96 93 94 Oximetry 03/05/18 03/05/18 03/05/18 00:45 01:00 01:15 Temperature Pulse Rate 123 H 123 H 120 H Pulse Rate [ Anterior Bilateral Throughout] Respiratory 18 20 20 Rate Respiratory Rate [Anterior Bilateral Throughout] Blood Pressure 107/56 100/62 95/58 O2 Sat by Pulse 93 95 95 Oximetry 03/05/18 03/05/18 03/05/18 01:30 01:45 02:00 Temperature Pulse Rate 131 H 124 H 130 H Pulse Rate [ Anterior Bilateral Throughout] Respiratory 26 H 20 27 H Rate Respiratory Rate [Anterior Bilateral Throughout] Blood Pressure 114/83 100/55 100/55 O2 Sat by Pulse 94 94 Oximetry 03/05/18 03/05/18 03/05/18 02:15 02:30 02:45 Temperature Pulse Rate 134 H 138 H 134 H Pulse Rate [ Anterior Bilateral Throughout] Respiratory Rate Respiratory Rate [Anterior Bilateral Throughout] Blood Pressure 130/50 113/75 89/54 O2 Sat by Pulse 90 90 93 Oximetry 03/05/18 03/05/18 03/05/18 03:00 03:15 03:30 Temperature Pulse Rate 129 H 128 H 129 H Pulse Rate [ Anterior Bilateral Throughout] Respiratory Rate Respiratory Rate [Anterior Bilateral Throughout] Blood Pressure 80/45 92/50 92/48 O2 Sat by Pulse 92 91 91 Oximetry 03/05/18 03/05/18 03/05/18 03:40 03:45 04:00 Temperature 99.8 F H Pulse Rate 129 H 133 H Pulse Rate [ Anterior Bilateral Throughout] Respiratory Rate Respiratory Rate [Anterior Bilateral Throughout] Blood Pressure 93/47 127/70 O2 Sat by Pulse 91 96 Oximetry 03/05/18 03/05/18 03/05/18 04:01 04:15 04:30 Temperature Pulse Rate 125 H 124 H 124 H Pulse Rate [ Anterior Bilateral Throughout] Respiratory Rate Respiratory Rate [Anterior Bilateral Throughout] Blood Pressure 85/47 95/53 83/50 O2 Sat by Pulse 91 91 90 Oximetry 03/05/18 03/05/18 03/05/18 04:45 05:00 05:15 Temperature Pulse Rate 122 H 116 H 129 H Pulse Rate [ Anterior Bilateral Throughout] Respiratory Rate Respiratory Rate [Anterior Bilateral Throughout] Blood Pressure 81/45 77/38 127/70 O2 Sat by Pulse 90 78 L 96 Oximetry 03/05/18 03/05/18 03/05/18 05:30 05:45 06:00 Temperature Pulse Rate 131 H 125 H 123 H Pulse Rate [ Anterior Bilateral Throughout] Respiratory Rate Respiratory Rate [Anterior Bilateral Throughout] Blood Pressure 124/74 85/50 97/66 O2 Sat by Pulse 94 96 95 Oximetry 03/05/18 03/05/18 03/05/18 06:15 06:30 06:45 Temperature Pulse Rate 128 H 124 H 124 H Pulse Rate [ Anterior Bilateral Throughout] Respiratory Rate Respiratory Rate [Anterior Bilateral Throughout] Blood Pressure 108/70 109/64 120/72 O2 Sat by Pulse 95 95 96 Oximetry 03/05/18 03/05/18 03/05/18 07:00 07:15 07:30 Temperature Pulse Rate 126 H 126 H 124 H Pulse Rate [ Anterior Bilateral Throughout] Respiratory Rate Respiratory Rate [Anterior Bilateral Throughout] Blood Pressure 125/69 131/76 139/76 O2 Sat by Pulse 97 95 96 Oximetry 03/05/18 03/05/18 03/05/18 07:45 08:00 08:15 Temperature Pulse Rate 124 H 125 H 125 H Pulse Rate [ Anterior Bilateral Throughout] Respiratory Rate Respiratory Rate [Anterior Bilateral Throughout] Blood Pressure 135/78 141/81 125/73 O2 Sat by Pulse 97 97 96 Oximetry 03/05/18 03/05/18 08:19 08:30 Temperature Pulse Rate 124 H 125 H Pulse Rate [ 124 H 127 H Anterior Bilateral Throughout] Respiratory Rate Respiratory 27 H 28 H Rate [Anterior Bilateral Throughout] Blood Pressure 140/77 140/77 O2 Sat by Pulse 99 97 Oximetry Constitutional: appears uncomfortable, other (elderly looking AAM, normocephalic and atraumativ on MVS with increased respiratory effort) Eyes: non-icteric ENT: oropharynx moist, other (ETT 24 cm TERESA) Neck: supple, no lymphadenopathy, no JVD, other (no thyromegaly) Effort: mildly labored Ascultation: Bilateral: diminished breath sounds, rales Percussion: Bilateral: not dull Cardiovascular: regular rate and rhythm, other (No R/M, S1,S2) Gastrointestinal: normoactive bowel sounds, soft, non-tender, non-distended, other (+ PEG; No HSM) Integumentary: other (poor turgor) Extremities: no cyanosis, no edema, pulses normal, no ischemia or petechiae Neurologic: pupils equal and round, unable to assess Psychiatric: other (unable to assess re: encephalopathy) CBC and BMP: 03/05/18 05:15 03/05/18 05:15 ABG, PT/INR, D-dimer: ABG POC ABG pH 7.519 (7.35-7.45) H 03/05/18 05:36 POC ABG pCO2 27.0 (35-45) L 03/05/18 05:36 POC ABG pO2 68 (80-105) L 03/05/18 05:36 POC ABG HCO3 21.9 03/05/18 05:36 POC ABG Total CO2 23 03/05/18 05:36 POC ABG O2 Sat 95 03/05/18 05:36 PT/INR, D-dimer PT 21.5 Sec. (12.2-14.9) H 02/26/18 20:50 INR 1.75 (0.87-1.13) H 02/26/18 20:50 Abnormal lab findings: Abnormal Labs 02/25/18 02/25/18 02/25/18 23:15 23:15 23:15 WBC 12.3 H RBC 3.56 L Hgb 10.2 L Hct 33.7 L MCV 95 H MCHC 30 L RDW 17.7 H Seg Neuts % (Manual) 35.0 L Lymphocytes % (Manual) 13.0 L Monocytes % (Manual) 8.0 H Nucleated RBC % Seg Neutrophils # Man Lymphocytes # (Manual) Monocytes # (Manual) 1.0 H PT 20.3 H INR 1.63 H POC ABG pH POC ABG pCO2 POC ABG pO2 Sodium 152 H Potassium Chloride 108.7 H Carbon Dioxide 18 L BUN 136 H Creatinine 5.2 H Glucose POC Glucose Lactic Acid Calcium 8.0 L Phosphorus Magnesium Total Bilirubin 4.50 H AST 83 H C-Reactive Protein Albumin 2.7 L Urine Creatinine Crossmatch 02/25/18 02/25/18 02/26/18 23:15 23:30 03:06 WBC RBC Hgb Hct MCV MCHC RDW Seg Neuts % (Manual) Lymphocytes % (Manual) Monocytes % (Manual) Nucleated RBC % Seg Neutrophils # Man Lymphocytes # (Manual) Monocytes # (Manual) PT INR POC ABG pH POC ABG pCO2 25.2 L POC ABG pO2 69 L Sodium Potassium Chloride Carbon Dioxide BUN Creatinine Glucose POC Glucose Lactic Acid 7.00 H* 9.70 H* Calcium Phosphorus Magnesium Total Bilirubin AST C-Reactive Protein Albumin Urine Creatinine Crossmatch 02/26/18 02/26/18 02/26/18 05:12 05:43 07:39 WBC 23.7 H RBC 3.27 L Hgb 9.3 L Hct 31.1 L MCV 95 H MCHC 30 L RDW 17.4 H Seg Neuts % (Manual) Lymphocytes % (Manual) 2.0 L Monocytes % (Manual) Nucleated RBC % 1.0 H Seg Neutrophils # Man 16.1 H Lymphocytes # (Manual) 0.5 L Monocytes # (Manual) 1.2 H PT INR POC ABG pH POC ABG pCO2 19.5 L POC ABG pO2 72 L Sodium Potassium Chloride Carbon Dioxide BUN Creatinine Glucose POC Glucose Lactic Acid 8.80 H* Calcium Phosphorus Magnesium Total Bilirubin AST C-Reactive Protein Albumin Urine Creatinine Crossmatch 02/26/18 02/26/18 02/26/18 07:39 12:06 13:08 WBC RBC Hgb Hct MCV MCHC RDW Seg Neuts % (Manual) Lymphocytes % (Manual) Monocytes % (Manual) Nucleated RBC % Seg Neutrophils # Man Lymphocytes # (Manual) Monocytes # (Manual) PT INR POC ABG pH POC ABG pCO2 27.8 L POC ABG pO2 168 H Sodium 155 H Potassium Chloride 114.2 H Carbon Dioxide 14 L BUN 120 H Creatinine 4.6 H Glucose 108 H POC Glucose Lactic Acid Calcium 7.7 L Phosphorus Magnesium Total Bilirubin 4.50 H AST 105 H C-Reactive Protein Albumin 2.4 L Urine Creatinine 38.6 H Crossmatch 02/26/18 02/26/18 02/26/18 18:41 20:50 20:50 WBC RBC Hgb Hct MCV MCHC RDW Seg Neuts % (Manual) Lymphocytes % (Manual) Monocytes % (Manual) Nucleated RBC % Seg Neutrophils # Man Lymphocytes # (Manual) Monocytes # (Manual) PT 21.5 H INR 1.75 H POC ABG pH POC ABG pCO2 POC ABG pO2 Sodium Potassium Chloride Carbon Dioxide BUN Creatinine Glucose POC Glucose 135 H Lactic Acid Calcium Phosphorus Magnesium Total Bilirubin AST C-Reactive Protein 33.90 H Albumin Urine Creatinine Crossmatch 02/27/18 02/27/18 02/27/18 03:39 04:56 04:56 WBC 20.1 H RBC 2.92 L Hgb 8.4 L Hct 27.5 L MCV MCHC 31 L RDW 17.1 H Seg Neuts % (Manual) 92.0 H Lymphocytes % (Manual) 3.0 L Monocytes % (Manual) Nucleated RBC % Seg Neutrophils # Man 18.5 H Lymphocytes # (Manual) 0.6 L Monocytes # (Manual) PT INR POC ABG pH 7.453 H POC ABG pCO2 27.2 L POC ABG pO2 Sodium 149 H Potassium Chloride 113.1 H Carbon Dioxide 18 L BUN 103 H Creatinine 3.8 H Glucose 120 H POC Glucose Lactic Acid Calcium 7.8 L Phosphorus Magnesium Total Bilirubin AST C-Reactive Protein Albumin Urine Creatinine Crossmatch 02/27/18 02/27/18 02/27/18 12:37 12:45 17:51 WBC RBC Hgb Hct MCV MCHC RDW Seg Neuts % (Manual) Lymphocytes % (Manual) Monocytes % (Manual) Nucleated RBC % Seg Neutrophils # Man Lymphocytes # (Manual) Monocytes # (Manual) PT INR POC ABG pH POC ABG pCO2 POC ABG pO2 Sodium Potassium Chloride Carbon Dioxide BUN Creatinine Glucose POC Glucose 169 H 133 H Lactic Acid 2.90 H* Calcium Phosphorus Magnesium Total Bilirubin AST C-Reactive Protein Albumin Urine Creatinine Crossmatch 02/28/18 02/28/18 02/28/18 00:23 05:00 05:02 WBC RBC Hgb Hct MCV MCHC RDW Seg Neuts % (Manual) Lymphocytes % (Manual) Monocytes % (Manual) Nucleated RBC % Seg Neutrophils # Man Lymphocytes # (Manual) Monocytes # (Manual) PT INR POC ABG pH POC ABG pCO2 POC ABG pO2 Sodium Potassium Chloride Carbon Dioxide BUN Creatinine Glucose POC Glucose 161 H 116 H Lactic Acid 2.70 H* Calcium Phosphorus Magnesium Total Bilirubin AST C-Reactive Protein Albumin Urine Creatinine Crossmatch 02/28/18 02/28/18 02/28/18 05:28 07:04 09:00 WBC 22.3 H RBC 2.63 L Hgb 7.6 L Hct 24.1 L MCV MCHC 31 L RDW 17.4 H Seg Neuts % (Manual) 84.0 H Lymphocytes % (Manual) 8.0 L Monocytes % (Manual) Nucleated RBC % Seg Neutrophils # Man 18.7 H Lymphocytes # (Manual) Monocytes # (Manual) 1.1 H PT INR POC ABG pH 7.477 H POC ABG pCO2 24.6 L POC ABG pO2 57 L Sodium Potassium Chloride Carbon Dioxide BUN Creatinine Glucose POC Glucose Lactic Acid 3.10 H* Calcium Phosphorus Magnesium Total Bilirubin AST C-Reactive Protein Albumin Urine Creatinine Crossmatch 02/28/18 02/28/18 02/28/18 09:00 11:36 17:10 WBC RBC Hgb Hct MCV MCHC RDW Seg Neuts % (Manual) Lymphocytes % (Manual) Monocytes % (Manual) Nucleated RBC % Seg Neutrophils # Man Lymphocytes # (Manual) Monocytes # (Manual) PT INR POC ABG pH POC ABG pCO2 POC ABG pO2 Sodium Potassium 3.3 L 3.5 L Chloride Carbon Dioxide 21 L 19 L BUN 76 H 69 H Creatinine 2.8 H 2.5 H Glucose 104 H 124 H POC Glucose 107 H Lactic Acid Calcium 7.6 L 7.3 L Phosphorus 1.50 L Magnesium Total Bilirubin AST C-Reactive Protein Albumin Urine Creatinine Crossmatch 02/28/18 02/28/18 03/01/18 17:36 23:40 06:25 WBC RBC Hgb Hct MCV MCHC RDW Seg Neuts % (Manual) Lymphocytes % (Manual) Monocytes % (Manual) Nucleated RBC % Seg Neutrophils # Man Lymphocytes # (Manual) Monocytes # (Manual) PT INR POC ABG pH 7.542 H POC ABG pCO2 23.3 L POC ABG pO2 62 L Sodium Potassium Chloride Carbon Dioxide BUN Creatinine Glucose POC Glucose 151 H 111 H Lactic Acid Calcium Phosphorus Magnesium Total Bilirubin AST C-Reactive Protein Albumin Urine Creatinine Crossmatch 03/01/18 03/01/18 03/02/18 10:00 12:12 05:21 WBC RBC Hgb Hct MCV MCHC RDW Seg Neuts % (Manual) Lymphocytes % (Manual) Monocytes % (Manual) Nucleated RBC % Seg Neutrophils # Man Lymphocytes # (Manual) Monocytes # (Manual) PT INR POC ABG pH 7.473 H POC ABG pCO2 21.5 L POC ABG pO2 79 L Sodium Potassium 3.5 L Chloride Carbon Dioxide 18 L BUN 66 H Creatinine 2.8 H Glucose 103 H POC Glucose 176 H Lactic Acid Calcium 7.5 L Phosphorus Magnesium Total Bilirubin AST C-Reactive Protein Albumin Urine Creatinine Crossmatch 03/02/18 03/02/18 03/02/18 06:00 06:00 11:47 WBC 18.2 H RBC 2.43 L Hgb 7.2 L Hct 22.6 L MCV MCHC RDW 17.6 H Seg Neuts % (Manual) Lymphocytes % (Manual) Monocytes % (Manual) Nucleated RBC % Seg Neutrophils # Man Lymphocytes # (Manual) Monocytes # (Manual) PT INR POC ABG pH POC ABG pCO2 POC ABG pO2 Sodium Potassium Chloride Carbon Dioxide 17 L BUN 68 H Creatinine 3.1 H Glucose 106 H POC Glucose 136 H Lactic Acid Calcium 7.2 L Phosphorus Magnesium Total Bilirubin AST C-Reactive Protein Albumin Urine Creatinine Crossmatch 03/02/18 03/03/18 03/03/18 17:35 00:54 03:38 WBC RBC Hgb Hct MCV MCHC RDW Seg Neuts % (Manual) Lymphocytes % (Manual) Monocytes % (Manual) Nucleated RBC % Seg Neutrophils # Man Lymphocytes # (Manual) Monocytes # (Manual) PT INR POC ABG pH 7.451 H POC ABG pCO2 20.5 L POC ABG pO2 Sodium Potassium Chloride Carbon Dioxide BUN Creatinine Glucose POC Glucose 109 H 131 H Lactic Acid Calcium Phosphorus Magnesium Total Bilirubin AST C-Reactive Protein Albumin Urine Creatinine Crossmatch 03/03/18 03/03/18 03/03/18 06:15 06:15 08:37 WBC 21.1 H RBC 2.20 L Hgb 6.3 L Hct 20.8 L MCV 95 H MCHC 30 L RDW 17.8 H Seg Neuts % (Manual) 71.0 H Lymphocytes % (Manual) 8.0 L Monocytes % (Manual) Nucleated RBC % Seg Neutrophils # Man 15.0 H Lymphocytes # (Manual) Monocytes # (Manual) 1.3 H PT INR POC ABG pH POC ABG pCO2 POC ABG pO2 Sodium 130 L D Potassium Chloride 96.4 L Carbon Dioxide 14 L BUN 69 H Creatinine 3.1 H Glucose POC Glucose Lactic Acid Calcium 7.0 L Phosphorus Magnesium Total Bilirubin AST C-Reactive Protein Albumin Urine Creatinine Crossmatch See Detail 03/03/18 03/03/18 03/03/18 09:38 12:13 12:37 WBC RBC Hgb Hct MCV MCHC RDW Seg Neuts % (Manual) Lymphocytes % (Manual) Monocytes % (Manual) Nucleated RBC % Seg Neutrophils # Man Lymphocytes # (Manual) Monocytes # (Manual) PT INR POC ABG pH POC ABG pCO2 23.8 L POC ABG pO2 156 H Sodium Potassium Chloride Carbon Dioxide BUN Creatinine Glucose POC Glucose 119 H Lactic Acid Calcium Phosphorus Magnesium 1.40 L Total Bilirubin AST C-Reactive Protein Albumin Urine Creatinine Crossmatch 03/03/18 03/04/18 03/04/18 18:05 00:59 04:27 WBC RBC Hgb Hct MCV MCHC RDW Seg Neuts % (Manual) Lymphocytes % (Manual) Monocytes % (Manual) Nucleated RBC % Seg Neutrophils # Man Lymphocytes # (Manual) Monocytes # (Manual) PT INR POC ABG pH 7.486 H POC ABG pCO2 24.8 L POC ABG pO2 Sodium Potassium Chloride Carbon Dioxide BUN Creatinine Glucose POC Glucose 154 H 159 H Lactic Acid Calcium Phosphorus Magnesium Total Bilirubin AST C-Reactive Protein Albumin Urine Creatinine Crossmatch 03/04/18 03/04/18 03/04/18 05:30 05:30 05:38 WBC 22.6 H RBC 2.46 L Hgb 7.1 L Hct 21.7 L MCV MCHC RDW 17.2 H Seg Neuts % (Manual) 84.0 H Lymphocytes % (Manual) 5.0 L Monocytes % (Manual) Nucleated RBC % Seg Neutrophils # Man 19.0 H Lymphocytes # (Manual) 1.1 L Monocytes # (Manual) PT INR POC ABG pH POC ABG pCO2 POC ABG pO2 Sodium 135 L Potassium Chloride 96.2 L Carbon Dioxide 19 L BUN 69 H Creatinine 3.1 H Glucose 121 H POC Glucose 134 H Lactic Acid Calcium 7.1 L Phosphorus Magnesium Total Bilirubin AST C-Reactive Protein 19.80 H Albumin Urine Creatinine Crossmatch 03/04/18 03/04/18 03/05/18 11:47 17:53 00:22 WBC RBC Hgb Hct MCV MCHC RDW Seg Neuts % (Manual) Lymphocytes % (Manual) Monocytes % (Manual) Nucleated RBC % Seg Neutrophils # Man Lymphocytes # (Manual) Monocytes # (Manual) PT INR POC ABG pH POC ABG pCO2 POC ABG pO2 Sodium Potassium Chloride Carbon Dioxide BUN Creatinine Glucose POC Glucose 109 H 113 H 113 H Lactic Acid Calcium Phosphorus Magnesium Total Bilirubin AST C-Reactive Protein Albumin Urine Creatinine Crossmatch 03/05/18 03/05/18 03/05/18 05:15 05:15 05:36 WBC 24.3 H RBC 2.29 L Hgb 6.8 L Hct 20.3 L MCV MCHC RDW 16.7 H Seg Neuts % (Manual) 88.0 H Lymphocytes % (Manual) 3.0 L Monocytes % (Manual) Nucleated RBC % Seg Neutrophils # Man 21.4 H Lymphocytes # (Manual) 0.7 L Monocytes # (Manual) PT INR POC ABG pH 7.519 H POC ABG pCO2 27.0 L POC ABG pO2 68 L Sodium 132 L Potassium Chloride 91.2 L Carbon Dioxide BUN 69 H Creatinine 3.3 H Glucose POC Glucose Lactic Acid Calcium 6.9 L Phosphorus Magnesium Total Bilirubin AST C-Reactive Protein Albumin Urine Creatinine Crossmatch Allied health notes reviewed: nursing
--- NOTE | 2018-03-05 10:52 | Progress Note ---
Assessment and Plan 72-year-old male with history of cerebrovascular accident and hemiplegia, Alzheimer's and nonverbal from [facility] sent for altered mental state. Since yesterday and high fever and increasing shortness of breath and respiratory distress. Patient's temperature was 103.2F in the initial evaluation in the emergency room. Patient was also severely tachypneic with respiratory rate of 40. Sudden onset. No exacerbating or relieving factors. [facility] 03/03: Went into cardiopulmonary arrest. Resuscitated according to ACLS protocol and commenced on IV Levophed for hypotension 03/05: Pt had recurrent seizure over the night and CT head showed right MCA acute /subacute stroke and calcified meningioma in the left frontal area Septic Shock * started on vanco and zosyn Discontinued, Zyvox started * Blood Cx negative Tracheal aspirate positive for MRSA * continue isolation per ID * on pressors Cardiopulmonary arrest * Resuscitated according to ACLS protocol * Commenced on Levophed drip for hypotension Acute Hypoxemic Respiratory Failure * Continues on mechanical ventilation >72HRS * Pulmonary following. * Aspiration precautions * IV solumedrol taper and Nebs Aspiration Pneumonia- Multilobar * Continue abx as noted above * Cultures showing MRSA, GAS * PCN AND CLINDAMYCIN ADDED * CONTACT ISOATION Acute Encephalopathy * patient with alzhimers disease Acute/ Subacute right MCA distribution stroke * Commence on Keppra after a laoding dose Meningioma left frontal area 2.8 x 2.2cm * calcified, old. Acute Kidney injury * Likely secondary to ATN * improved Sacral Pressure ulcer * wound care consult BPH * Continue Finasteride Hyperlipidemia * continue statin CVA PER HX-WITH LEFT SIDED HEMIPLEGIA * Complete immobility due to frailty per documentation ANEMIA * Of chronic disease. Will transfuse blood one unit DVT/GI prophy Called pt's son and discussed at length with him regarding pt's status and management plan but no response. Poor prognosis The high probability of a clinically significant, sudden or life threatening deterioration of the [PULMONARY] system(s) required my full and direct attention , intervention and personal management. The aggregate critical care time was [45 ] minutes. This time is in addition to time spent performing reported procedures but includes the following: [X] Data Review and interpretation [X] Patient assessment and monitoring of vital signs [X] Documentation [X] Medication orders and management Subjective Date of service: 03/05/18 Principal diagnosis: Acute Hypoxemic Resp Failure; Severe Sepsis; Aspiration Pneumonai (HCAP) Interval history: Patent seen and examined. Said to have recurrent seizures last night for which CT head was done. Findings remarkable for Acute stroke. Pt remanis intubated s/ p cardiopulmonary arrest and supported by mechanical ventilation. Pt still on the vent. Objective - Exam Narrative Exam: Constitutional: intubated and on mechanical ventilation Head: Normocephalic atraumatic Eyes: Pupils are equal round and reactive to light Nose: No enlarged turbinates, no septal deviation. Mouth: Moist mucous membranes. Neck: Supple no thyromegaly. No bruit. No JVD Heart: Regular rate and rhythm, S1-S2 abnormal. No rubs murmurs or gallop Lungs: Decreased breath sound bilaterally no rales or rhonchi Abdomen: Soft, nontender. Bowel sound are present. Extremities: No edema no cyanosis and no clubbing. Neuro: Alert oriented Oriented x3. No focal sensory or motor deficit. Skin: No rashes no hyperemic spots Psychiatry: Euthymic. Calm. - Constitutional Vitals: Vital Signs - 12hr 03/04/18 03/04/18 03/04/18 22:45 23:00 23:15 Temperature Pulse Rate 135 H 130 H 129 H Pulse Rate [ Anterior Bilateral Throughout] Respiratory 34 H 25 H 25 H Rate Respiratory Rate [Anterior Bilateral Throughout] Blood Pressure 98/65 133/70 101/66 O2 Sat by Pulse 96 90 92 Oximetry 03/04/18 03/04/18 03/05/18 23:30 23:45 00:00 Temperature 98.5 F Pulse Rate 127 H 124 H 129 H Pulse Rate [ 126 H Anterior Bilateral Throughout] Respiratory 21 25 H 21 Rate Respiratory 22 Rate [Anterior Bilateral Throughout] Blood Pressure 110/68 114/66 105/63 O2 Sat by Pulse 93 94 96 Oximetry 03/05/18 03/05/18 03/05/18 00:03 00:15 00:30 Temperature Pulse Rate 128 H 128 H 125 H Pulse Rate [ Anterior Bilateral Throughout] Respiratory 20 21 21 Rate Respiratory Rate [Anterior Bilateral Throughout] Blood Pressure 118/73 105/63 113/62 O2 Sat by Pulse 96 93 94 Oximetry 03/05/18 03/05/18 03/05/18 00:45 01:00 01:15 Temperature Pulse Rate 123 H 123 H 120 H Pulse Rate [ Anterior Bilateral Throughout] Respiratory 18 20 20 Rate Respiratory Rate [Anterior Bilateral Throughout] Blood Pressure 107/56 100/62 95/58 O2 Sat by Pulse 93 95 95 Oximetry 03/05/18 03/05/18 03/05/18 01:30 01:45 02:00 Temperature Pulse Rate 131 H 124 H 130 H Pulse Rate [ Anterior Bilateral Throughout] Respiratory 26 H 20 27 H Rate Respiratory Rate [Anterior Bilateral Throughout] Blood Pressure 114/83 100/55 100/55 O2 Sat by Pulse 94 94 Oximetry 03/05/18 03/05/18 03/05/18 02:15 02:30 02:45 Temperature Pulse Rate 134 H 138 H 134 H Pulse Rate [ Anterior Bilateral Throughout] Respiratory Rate Respiratory Rate [Anterior Bilateral Throughout] Blood Pressure 130/50 113/75 89/54 O2 Sat by Pulse 90 90 93 Oximetry 03/05/18 03/05/18 03/05/18 03:00 03:15 03:30 Temperature Pulse Rate 129 H 128 H 129 H Pulse Rate [ Anterior Bilateral Throughout] Respiratory Rate Respiratory Rate [Anterior Bilateral Throughout] Blood Pressure 80/45 92/50 92/48 O2 Sat by Pulse 92 91 91 Oximetry 03/05/18 03/05/18 03/05/18 03:40 03:45 04:00 Temperature 99.8 F H Pulse Rate 129 H 133 H Pulse Rate [ Anterior Bilateral Throughout] Respiratory Rate Respiratory Rate [Anterior Bilateral Throughout] Blood Pressure 93/47 127/70 O2 Sat by Pulse 91 96 Oximetry 03/05/18 03/05/18 03/05/18 04:01 04:15 04:30 Temperature Pulse Rate 125 H 124 H 124 H Pulse Rate [ Anterior Bilateral Throughout] Respiratory Rate Respiratory Rate [Anterior Bilateral Throughout] Blood Pressure 85/47 95/53 83/50 O2 Sat by Pulse 91 91 90 Oximetry 03/05/18 03/05/18 03/05/18 04:45 05:00 05:15 Temperature Pulse Rate 122 H 116 H 129 H Pulse Rate [ Anterior Bilateral Throughout] Respiratory Rate Respiratory Rate [Anterior Bilateral Throughout] Blood Pressure 81/45 77/38 127/70 O2 Sat by Pulse 90 78 L 96 Oximetry 03/05/18 03/05/18 03/05/18 05:30 05:45 06:00 Temperature Pulse Rate 131 H 125 H 123 H Pulse Rate [ Anterior Bilateral Throughout] Respiratory Rate Respiratory Rate [Anterior Bilateral Throughout] Blood Pressure 124/74 85/50 97/66 O2 Sat by Pulse 94 96 95 Oximetry 03/05/18 03/05/18 03/05/18 06:15 06:30 06:45 Temperature Pulse Rate 128 H 124 H 124 H Pulse Rate [ Anterior Bilateral Throughout] Respiratory Rate Respiratory Rate [Anterior Bilateral Throughout] Blood Pressure 108/70 109/64 120/72 O2 Sat by Pulse 95 95 96 Oximetry 03/05/18 03/05/18 03/05/18 07:00 07:15 07:30 Temperature Pulse Rate 126 H 126 H 124 H Pulse Rate [ Anterior Bilateral Throughout] Respiratory Rate Respiratory Rate [Anterior Bilateral Throughout] Blood Pressure 125/69 131/76 139/76 O2 Sat by Pulse 97 95 96 Oximetry 03/05/18 03/05/18 03/05/18 07:45 08:00 08:15 Temperature Pulse Rate 124 H 125 H 125 H Pulse Rate [ Anterior Bilateral Throughout] Respiratory Rate Respiratory Rate [Anterior Bilateral Throughout] Blood Pressure 135/78 141/81 125/73 O2 Sat by Pulse 97 97 96 Oximetry 03/05/18 03/05/18 08:19 08:30 Temperature Pulse Rate 124 H 125 H Pulse Rate [ 124 H 127 H Anterior Bilateral Throughout] Respiratory Rate Respiratory 27 H 28 H Rate [Anterior Bilateral Throughout] Blood Pressure 140/77 140/77 O2 Sat by Pulse 99 97 Oximetry General appearance: Present: no acute distress, well-nourished - EENT Eyes: PERRL, EOM intact ENT: hearing intact, clear oral mucosa Ears: bilateral: normal - Neck Neck: supple, normal ROM - Respiratory Respiratory effort: normal Respiratory: bilateral: CTA - Breasts Breasts: normal - Cardiovascular Rhythm: regular Heart Sounds: Present: S1 & S2. Absent: gallop, rub Extremities: pulses intact, No edema, normal color, Full ROM - Gastrointestinal General gastrointestinal: Present: soft, non-tender, non-distended, normal bowel sounds - Genitourinary Male genitourinary: normal - Integumentary Integumentary: clear, warm, dry - Musculoskeletal Musculoskeletal: 1, strength equal bilaterally - Neurologic Neurologic: moves all extremities - Psychiatric Psychiatric: memory intact, appropriate mood/affect, intact judgment & insight - Labs CBC & Chem 7: 03/05/18 05:15 03/05/18 05:15 Labs: Abnormal lab results 03/03/1818 03/04/18 Range/Units 12:37 11:47 17:53 WBC (4.5-11.0) K/mm3 RBC (3.65-5.03) M/mm3 Hgb (11.8-15.2) gm/dl Hct (35.5-45.6) % RDW (13.2-15.2) % Seg Neuts % (Manual) (40.0-70.0) % Lymphocytes % (Manual) (13.4-35.0) % Seg Neutrophils # Man (1.8-7.7) K/mm3 Lymphocytes # (Manual) (1.2-5.4) K/mm3 POC ABG pH (7.35-7.45) POC ABG pCO2 (35-45) POC ABG pO2 (80-105) Sodium (137-145) mmol/L Chloride (98-107) mmol/L BUN (9-20) mg/dL Creatinine (0.8-1.5) mg/dL POC Glucose 109 H 113 H (70-105) Calcium (8.4-10.2) mg/dL Magnesium 1.40 L (1.7-2.3) mg/dL 03/05/18 03/05/18 03/05/18 Range/Units 00:22 05:15 05:15 WBC 24.3 H (4.5-11.0) K/mm3 RBC 2.29 L (3.65-5.03) M/mm3 Hgb 6.8 L (11.8-15.2) gm/dl Hct 20.3 L (35.5-45.6) % RDW 16.7 H (13.2-15.2) % Seg Neuts % (Manual) 88.0 H (40.0-70.0) % Lymphocytes % (Manual) 3.0 L (13.4-35.0) % Seg Neutrophils # Man 21.4 H (1.8-7.7) K/mm3 Lymphocytes # (Manual) 0.7 L (1.2-5.4) K/mm3 POC ABG pH (7.35-7.45) POC ABG pCO2 (35-45) POC ABG pO2 (80-105) Sodium 132 L (137-145) mmol/L Chloride 91.2 L (98-107) mmol/L BUN 69 H (9-20) mg/dL Creatinine 3.3 H (0.8-1.5) mg/dL POC Glucose 113 H (70-105) Calcium 6.9 L (8.4-10.2) mg/dL Magnesium (1.7-2.3) mg/dL 03/05/18 Range/Units 05:36 WBC (4.5-11.0) K/mm3 RBC (3.65-5.03) M/mm3 Hgb (11.8-15.2) gm/dl Hct (35.5-45.6) % RDW (13.2-15.2) % Seg Neuts % (Manual) (40.0-70.0) % Lymphocytes % (Manual) (13.4-35.0) % Seg Neutrophils # Man (1.8-7.7) K/mm3 Lymphocytes # (Manual) (1.2-5.4) K/mm3 POC ABG pH 7.519 H (7.35-7.45) POC ABG pCO2 27.0 L (35-45) POC ABG pO2 68 L (80-105) Sodium (137-145) mmol/L Chloride (98-107) mmol/L BUN (9-20) mg/dL Creatinine (0.8-1.5) mg/dL POC Glucose (70-105) Calcium (8.4-10.2) mg/dL Magnesium (1.7-2.3) mg/dL
[2018-03-05] MEDS ORDERED: KEPPRA PO SCH (11:00)
[2018-03-05] MEDS ORDERED: NACL 0.9% 500 ML 500 ML IV ONE (11:06)
[2018-03-05] MEDS: ZYVOX 600MG/300ML 600 MG/300 ML BAG IV SCH ×2 (12:06→22:25)
--- NOTE | 2018-03-05 18:49 | Cat Scan Report ---
FINAL REPORT PROCEDURE: CT CHEST WO CON TECHNIQUE: Computerized axial tomography of the chest was performed without contrast material. This study is performed without intravenous contrast and the sensitivity for pathology, including neoplasms, adenopathy, abscess, pulmonary embolism and aortic dissection, is reduced. HISTORY: respiratory failure COMPARISON: No prior studies are available for comparison. TECHNICAL QUALITY: Satisfactory. FINDINGS: Heart and pericardium: No pericardial effusion or thickening. Thoracic aorta: There is atherosclerotic calcification. Pulmonary vasculature: Normal caliber. Lymph nodes: No enlarged thoracic lymph nodes. Lungs: There is airspace consolidation in bilateral lower lobes and inferior bilateral upper lobes. Pleural space: Small right pleural effusion. Musculoskeletal structures: No significant abnormality. Upper abdominal structures: There is free fluid in the upper abdomen and possibly in the gallbladder fossa. IMPRESSION: Bilateral airspace consolidation as described above may be related to pneumonia.
[2018-03-05] MEDS: KEPPRA FEEDTUBE SCH (22:24)
[2018-03-06] MEDS: KEPPRA FEEDTUBE SCH ×3 (01:37→18:06)
[2018-03-06] MEDS: LEVOPHED DRIP 4 MG/NS 250 ML 4 MG/250 ML BAG IV SCH ×2 (01:38→19:02)
[2018-03-06] MEDS: PFIZERPEN 4 MIL.UNITS in NACL 0.9% 50 ML IV SCH ×4 (01:39→18:05)
[2018-03-06] MEDS: HumuLIN R SUB-Q SCH ×4 (01:42→18:56)
[2018-03-06] MEDS: SODIUM BICARBONATE 150 MEQ, KCL 20 MEQ in D5W 1,000 ML IV SCH (04:21)
[2018-03-06 05:02] LABS: Hematocrit 25.8 % (35.5-45.6); Hemoglobin 8.5 gm/dl (11.8-15.2); Mean Corpuscular HGB Conc 33 % (32-34); Mean Corpuscular Hemoglobin 29 pg (28-32); Mean Corpuscular Volume 89 fl (84-94); Platelet Count 220 K/mm3 (140-440); Red Cell Distribution Width 16.3 % (13.2-15.2)
[2018-03-06] MEDS: CLEOCIN 600 MG/50 mL 600 MG/50 ML BAG IV SCH ×3 (06:06→21:50)
[2018-03-06 06:07] LABS: Band Neutrophils # (Manual) 0.4 K/mm3; Basophils % (Manual) 0 % (0.0-1.8); Eosinophils % (Manual) 0 % (0.0-4.3); Monocytes % (Manual) 0.5 % (0.0-7.3); Myelocytes # (Manual) 0.1 K/mm3; Total Cells Counted 200
[2018-03-06 06:09] LABS: Platelet Estimate Consistent w Auto; Target Cells Few
[2018-03-06 06:52] LABS: Calcium 7.2 mg/dL (8.4-10.2)
[2018-03-06] MEDS: SODIUM CHLORIDE FLUSH SYRINGE 10 ML IV SCH ×2 (07:38→15:13)
[2018-03-06] MEDS: DUONEB *Not for PRN Use IH SCH ×3 (08:32→23:23)
--- NOTE | 2018-03-06 09:22 | Progress Note ---
Assessment and Plan Assessment and plan: 72-year-old male with history of cerebrovascular accident hemiplegia. Alzheimer's and nonverbal from [facility] sent for altered mental state. Since yesterday and high fever and increasing shortness of breath and respiratory distress. Patient's temperature was 103.2F in the initial evaluation in the emergency room. Patient was also severely tachypneic with respiratory rate of 40. Sudden onset. No exacerbating or relieving factors. Patient is a resident of assisted facility. Patient continued in the ICU started on broad septurm abx and later de-escalated to Zyvox for MRSA and had rapid response was called following worsening symptoms with chest compression ensuing. CT brain shows New CVA/SUBACUTE CVA, with again noted with mengioma, Neurology consulted and EEG, with extensive family conversation. Nephrology was also on board with notation of Nonoliguric acute kidney injury secondary to prerenal azotemia/ATN due to dehydration vs sepsis and Metabolic acidosis secondary to lactic acidosis among others but with no indication for PHOTOTYPESETTING EQUIPMENT MONITOR at the time. ID/precision farming specialist following 03/03: Went into cardiopulmonary arrest. Resuscitated according to ACLS protocol and commenced on IV Levophed for hypotension 03/05: Pt had recurrent seizure over the night and CT head showed right MCA acute /subacute stroke and calcified meningioma in the left frontal area Acute right MCA stroke * Neurology pending consulted * EEG, WITH anti-seizure meds Septic Shock * started on vanco and zosyn Discontinued,zyvox started * follow cultures * continue isolation per ID * on pressors Cardiopulmonary arrest * Resuscitated according to ACLS protocol * Commenced on Levophed drip for hypotension Acute Hypoxemic Respiratory Failure * Continues on mechanical ventilation >96HRS * Pulmonary following. * Aspiration precautions * Plan for Trach and PEg * MRSA on sputum * Continue nebs, now off solumedrol Aspiration Pneumonia- Multilobar * Continue abx as noted above * Cultures showing MRSA, GAS * PCN AND CLINDAMYCIN ADDED * CONTACT ISOATION Acute ON CHRONIC Encephalopathy * patient with alzhimers disease Acute Kidney injury * Likely secondary to ATN * improved Sacral Pressure ulcer * wound care consult Hypernatermia * Resolving Diabetes. * Continue sliding scale coverage History of Alzheimer dementia. BPH * Continue Finasterid Hyperlipidemia * continue statin CVA PER HX-WITH LEFT SIDED HEMIPLEGIA * Complete immobility due to frailty per documentation ANEMIA * Of chronic disease, monitor closely s/p 3 units PRBC DVT/GI prophy Discussed with son. Poor prognosis Plan for LTAC eval The high probability of a clinically significant, sudden or life threatening deterioration of the [PULMONARY] system(s) required my full and direct attention , intervention and personal management. The aggregate critical care time was [45 ] minutes. This time is in addition to time spent performing reported procedures but includes the following: [X] Data Review and interpretation [X] Patient assessment and monitoring of vital signs [X] Documentation [X] Medication orders and management History Interval history: Patient seen and examined, remains intubated, opens eyes to verbal stimuli but not following any commands. Still with low bp AND ON LEVOPHED Hospitalist Physical - Physical exam Narrative exam: VITAL SIGNS: Reviewed. GENERAL: The patient appeared Chronically ill, on mechanical ventilation. Vital signs as documented. HEAD: No signs of head trauma. Marked temporal wasting EYES: Pupils are equal. Extraocular motions intact. EARS: Hearing grossly intact. MOUTH: ETT NECK: No adenopathy, no JVD. CHEST: Chest with crackles breath sounds bilaterally bases. CARDIAC: Regular rate and rhythm. S1 and S2, without murmurs, gallops, or rubs. VASCULAR: No Edema. Peripheral pulses normal and equal in all extremities. ABDOMEN: Soft, without detectable tenderness. No sign of distention. No rebound or guarding, and no masses palpated. Bowel Sounds normal. MUSCULOSKELETAL: Extremities without clubbing, cyanosis or edema. NEUROLOGIC EXAM: Awake, but lethargic. Unable to examine. Left sided weakness. focal deficits, severely altered sensorium and nearly unresponsive PSYCHIATRIC: unable to assess. SKIN: Pressure Ulcer - Constitutional Vitals: Temp Pulse Resp BP Pulse Ox 98.7 F 123 H 27 H 98/61 100 03/06/18 08:00 03/06/18 08:33 03/06/18 08:33 03/06/18 08:29 03/06/18 08:29 General appearance: Present: no acute distress, well-nourished Results - Labs CBC & Chem 7: 03/08/18 04:30 03/07/18 05:00 Labs: Laboratory Last Values WBC 24.5 K/mm3 (4.5-11.0) H 03/06/18 04:44 RBC 2.90 M/mm3 (3.65-5.03) L 03/06/18 04:44 Hgb 8.5 gm/dl (11.8-15.2) L 03/06/18 04:44 Hct 25.8 % (35.5-45.6) L 03/06/18 04:44 MCV 89 fl (84-94) 03/06/18 04:44 MCH 29 pg (28-32) 03/06/18 04:44 MCHC 33 % (32-34) 03/06/18 04:44 RDW 16.3 % (13.2-15.2) H 03/06/18 04:44 Plt Count 220 K/mm3 (140-440) 03/06/18 04:44 Add Manual Diff Complete 03/06/18 04:44 Total Counted 200 03/06/18 04:44 Seg Neutrophils % Floor Renovator 03/06/18 04:44 Seg Neuts % (Manual) 96.0 % (40.0-70.0) H 03/06/18 04:44 Band Neutrophils % 1.5 % 03/06/18 04:44 Lymphocytes % (Manual) 1.5 % (13.4-35.0) L 03/06/18 04:44 Reactive Lymphs % (Man) 0 % 03/06/18 04:44 Monocytes % (Manual) 0.5 % (0.0-7.3) 03/06/18 04:44 Eosinophils % (Manual) 0 % (0.0-4.3) 03/06/18 04:44 Basophils % (Manual) 0 % (0.0-1.8) 03/06/18 04:44 Metamyelocytes % 0 % 03/06/18 04:44 Myelocytes % 0.5 % 03/06/18 04:44 Promyelocytes % 0 % 03/06/18 04:44 Blast Cells % 0 % 03/06/18 04:44 Nucleated RBC % 1.0 % (0.0-0.9) H 03/06/18 04:44 Seg Neutrophils # Man 23.5 K/mm3 (1.8-7.7) H 03/06/18 04:44 Band Neutrophils # 0.4 K/mm3 03/06/18 04:44 Lymphocytes # (Manual) 0.4 K/mm3 (1.2-5.4) L 03/06/18 04:44 Abs React Lymphs (Man) 0.0 K/mm3 03/06/18 04:44 Monocytes # (Manual) 0.1 K/mm3 (0.0-0.8) 03/06/18 04:44 Eosinophils # (Manual) 0.0 K/mm3 (0.0-0.4) 03/06/18 04:44 Basophils # (Manual) 0.0 K/mm3 (0.0-0.1) 03/06/18 04:44 Metamyelocytes # 0.0 K/mm3 03/06/18 04:44 Myelocytes # 0.1 K/mm3 03/06/18 04:44 Promyelocytes # 0.0 K/mm3 03/06/18 04:44 Blast Cells # 0.0 K/mm3 03/06/18 04:44 WBC Morphology Not Reportable 03/06/18 04:44 Hypersegmented Neuts Not Reportable 03/06/18 04:44 Hyposegmented Neuts Not Reportable 03/06/18 04:44 Hypogranular Neuts Not Reportable 03/06/18 04:44 Smudge Cells Not Reportable 03/06/18 04:44 Toxic Granulation Not Reportable 03/06/18 04:44 Toxic Vacuolation Not Reportable 03/06/18 04:44 Dohle Bodies Not Reportable 03/06/18 04:44 Pelger-Huet Anomaly Not Reportable 03/06/18 04:44 Erwin Rods Not Reportable 03/06/18 04:44 Platelet Estimate Consistent w auto 03/06/18 04:44 Clumped Platelets Not Reportable 03/06/18 04:44 Plt Clumps, EDTA Not Reportable 03/06/18 04:44 Large Platelets Not Reportable 03/06/18 04:44 Giant Platelets Not Reportable 03/06/18 04:44 Platelet Satelliting Not Reportable 03/06/18 04:44 Plt Morphology Comment Not Reportable 03/06/18 04:44 RBC Morphology Not Reportable 03/06/18 04:44 Dimorphic RBCs Not Reportable 03/06/18 04:44 Polychromasia Not Reportable 03/06/18 04:44 Hypochromasia Not Reportable 03/06/18 04:44 Poikilocytosis Not Reportable 03/06/18 04:44 Anisocytosis Not Reportable 03/06/18 04:44 Microcytosis Not Reportable 03/06/18 04:44 Macrocytosis Not Reportable 03/06/18 04:44 Spherocytes Not Reportable 03/06/18 04:44 Pappenheimer Bodies Not Reportable 03/06/18 04:44 Sickle Cells Not Reportable 03/06/18 04:44 Target Cells Few 03/06/18 04:44 Tear Drop Cells Not Reportable 03/06/18 04:44 Ovalocytes Not Reportable 03/06/18 04:44 Stomatocytes Few 02/28/18 09:00 Helmet Cells Not Reportable 03/06/18 04:44 [place] Bodies Not Reportable 03/06/18 04:44 [place] Rings Not Reportable 03/06/18 04:44 Lyle Cells Not Reportable 03/06/18 04:44 Bite Cells Not Reportable 03/06/18 04:44 Crenated Cell Not Reportable 03/06/18 04:44 Elliptocytes Not Reportable 03/06/18 04:44 Acanthocytes (Spur) Not Reportable 03/06/18 04:44 Rouleaux Not Reportable 03/06/18 04:44 Hemoglobin C Crystals Not Reportable 03/06/18 04:44 Schistocytes Not Reportable 03/06/18 04:44 Malaria parasites Not Reportable 03/06/18 04:44 Aric Bodies Not Reportable 03/06/18 04:44 Hem Pathologist Commnt No 03/06/18 04:44 PT 21.5 Sec. (12.2-14.9) H 02/26/18 20:50 INR 1.75 (0.87-1.13) H 02/26/18 20:50 POC ABG pH 7.551 (7.35-7.45) H 03/06/18 04:54 POC ABG pCO2 29.5 (35-45) L 03/06/18 04:54 POC ABG pO2 57 (80-105) L 03/06/18 04:54 POC ABG HCO3 25.9 03/06/18 04:54 POC ABG Total CO2 27 03/06/18 04:54 POC ABG O2 Sat 93 03/06/18 04:54 POC ABG Base Excess 4 03/06/18 04:54 VBG pH 7.406 (7.320-7.420) 02/25/18 23:15 FiO2 40 % 03/06/18 04:54 Sodium 141 mmol/L (137-145) D 03/06/18 00:00 Potassium 4.3 mmol/L (3.6-5.0) 03/06/18 00:00 Chloride 92.9 mmol/L (98-107) L 03/06/18 00:00 Carbon Dioxide 24 mmol/L (22-30) 03/06/18 00:00 Anion Gap 28 mmol/L 03/06/18 00:00 BUN 67 mg/dL (9-20) H 03/06/18 00:00 Creatinine 3.4 mg/dL (0.8-1.5) H 03/06/18 00:00 Estimated GFR 22 ml/min 03/06/18 00:00 BUN/Creatinine Ratio 20 % 03/06/18 00:00 Glucose 97 mg/dL (75-100) 03/06/18 00:00 POC Glucose 108 (70-105) H 03/06/18 05:54 Lactic Acid 3.10 mmol/L (0.7-2.0) H* 02/28/18 07:04 Calcium 7.2 mg/dL (8.4-10.2) L 03/06/18 00:00 Phosphorus 1.50 mg/dL (2.5-4.5) L 02/28/18 17:10 Magnesium 1.40 mg/dL (1.7-2.3) L 03/03/18 12:37 Total Bilirubin 4.50 mg/dL (0.1-1.2) H 02/26/18 07:39 AST 105 units/L (5-40) H 02/26/18 07:39 ALT 48 units/L (7-56) 02/26/18 07:39 Alkaline Phosphatase 109 units/L (35-129) 02/26/18 07:39 C-Reactive Protein 19.80 mg/dL (0.00-1.30) H 03/04/18 05:30 Total Protein 6.4 g/dL (6.3-8.2) 02/26/18 07:39 Albumin 2.4 g/dL (3.9-5) L 02/26/18 07:39 Albumin/Globulin Ratio 0.6 % 02/26/18 07:39 Lipase 35 units/L (13-60) 02/26/18 02:58 TSH 2.670 mlU/mL (0.270-4.200) 02/26/18 00:10 Free T4 1.26 ng/dL (0.76-1.46) 02/26/18 00:10 Urine Color Lesley (Yellow) 02/26/18 00:32 Urine Turbidity Hazy (Clear) 02/26/18 00:32 Urine pH 5.0 (5.0-7.0) 02/26/18 00:32 Ur Specific M[place] 1.015 (1.003-1.030) 02/26/18 00:32 Urine Protein <15 mg/dl mg/dL (Negative) 02/26/18 00:32 Urine Glucose (UA) Neg mg/dL (Negative) 02/26/18 00:32 Urine Ketones Neg mg/dL (Negative) 02/26/18 00:32 Urine Blood Neg (Negative) 02/26/18 00:32 Urine Nitrite Neg (Negative) 02/26/18 00:32 Urine Bilirubin Neg (Negative) 02/26/18 00:32 Urine Urobilinogen 4.0 mg/dL (<2.0) 02/26/18 00:32 Ur Leukocyte Esterase Neg (Negative) 02/26/18 00:32 Urine WBC (Auto) 1.0 /HPF (0.0-6.0) 02/26/18 00:32 Urine RBC (Auto) 1.0 /HPF (0.0-6.0) 02/26/18 00:32 U Epithel Cells (Auto) 1.0 /HPF (0-13.0) 02/26/18 00:32 Amorphous Crystals 3+ 02/26/18 00:32 Hyaline Casts 4 /LPF 02/26/18 00:32 Urine Mucus Few /HPF 02/26/18 00:32 Urine Creatinine 38.6 mg/dL (0.1-20.0) H 02/26/18 13:08 Urine Sodium 67 mmol/L 02/26/18 13:08 Blood Type A POSITIVE 03/03/18 08:37 Antibody Screen Negative 03/03/18 08:37 Crossmatch See Detail 03/03/18 08:37
--- NOTE | 2018-03-06 09:29 | Progress Note ---
Assessment and Plan Impression: * Nonoliguric acute kidney injury secondary to prerenal azotemia/ATN due to dehydration vs sepsis --Baseline SCr 1.6-1.8mg/dL * Acute hypoxic respiratory failure * Sepsis * Asp PNA * HCAP --sputum w/ MRSA, group A beta hemolytic strep * Hypernatremia secondary to dehydration - resolved * Metabolic acidosis secondary to lactic acidosis * CVA with left hemiplegia Plan: * Continue IVF--added NA bicarb, co2 is better * follow up crcl * if refractory to medical treatment, may need rn production, no indication today * Keep MAP>65 * prn transfusion of pRBC * Replete lytes prn * Vent management per CCM * Broad spectrum abx * Dose medications for renal function * Avoid potential nephrotoxins Subjective Date of service: 03/06/18 Principal diagnosis: Acute Hypoxemic Resp Failure; Severe Sepsis; Aspiration Pneumonai (HCAP) Interval history: resting well in bed today Objective - Exam Narrative Exam: General appearance: intubated EENT: ATNC, other (ETT in place) Respiratory: Present: Other (coarse breath sounds) Cardiology: tachycardia, S1S2 Gastrointestinal: normal, no distended Integumentary: no rash, warm and dry Musculoskeletal: other (no edema) - Vital Signs Vital signs: Vital Signs - 12hr 03/05/18 03/05/18 03/05/18 21:30 21:40 21:50 Temperature Pulse Rate 127 H 124 H 124 H Pulse Rate [ Anterior Bilateral Throughout] Pulse Rate [ From Monitor] Respiratory 27 H 25 H 27 H Rate Respiratory Rate [Anterior Bilateral Throughout] Blood Pressure 100/64 107/68 O2 Sat by Pulse 98 97 97 Oximetry 03/05/18 03/05/18 03/05/18 22:00 22:15 22:30 Temperature Pulse Rate 123 H 124 H 127 H Pulse Rate [ Anterior Bilateral Throughout] Pulse Rate [ From Monitor] Respiratory 27 H 26 H 29 H Rate Respiratory Rate [Anterior Bilateral Throughout] Blood Pressure 111/67 98/68 100/61 O2 Sat by Pulse 94 94 94 Oximetry 03/05/18 03/05/18 03/05/18 22:45 23:00 23:15 Temperature Pulse Rate 128 H 127 H 126 H Pulse Rate [ Anterior Bilateral Throughout] Pulse Rate [ From Monitor] Respiratory 28 H 35 H 34 H Rate Respiratory Rate [Anterior Bilateral Throughout] Blood Pressure 93/56 96/44 86/37 O2 Sat by Pulse 94 94 96 Oximetry 03/05/18 03/05/18 03/05/18 23:30 23:45 23:46 Temperature Pulse Rate 123 H 123 H 125 H Pulse Rate [ Anterior Bilateral Throughout] Pulse Rate [ From Monitor] Respiratory 31 H 28 H Rate Respiratory Rate [Anterior Bilateral Throughout] Blood Pressure 101/61 100/59 101/61 O2 Sat by Pulse 95 95 97 Oximetry 03/06/18 03/06/18 03/06/18 00:00 00:15 00:30 Temperature 99.6 F Pulse Rate 121 H 121 H 122 H Pulse Rate [ Anterior Bilateral Throughout] Pulse Rate [ 129 H From Monitor] Respiratory 28 H 26 H 25 H Rate Respiratory Rate [Anterior Bilateral Throughout] Blood Pressure 103/58 97/56 95/63 O2 Sat by Pulse 96 97 97 Oximetry 03/06/18 03/06/18 03/06/18 00:45 01:00 01:15 Temperature Pulse Rate 122 H 126 H 122 H Pulse Rate [ Anterior Bilateral Throughout] Pulse Rate [ From Monitor] Respiratory 22 21 25 H Rate Respiratory Rate [Anterior Bilateral Throughout] Blood Pressure 114/64 114/64 98/56 O2 Sat by Pulse 95 97 95 Oximetry 03/06/18 03/06/18 03/06/18 01:30 01:45 02:00 Temperature Pulse Rate 121 H 121 H 120 H Pulse Rate [ Anterior Bilateral Throughout] Pulse Rate [ From Monitor] Respiratory 25 H 25 H 26 H Rate Respiratory Rate [Anterior Bilateral Throughout] Blood Pressure 89/62 96/48 76/46 O2 Sat by Pulse 97 98 98 Oximetry 03/06/18 03/06/18 03/06/18 02:15 02:30 02:45 Temperature Pulse Rate 118 H 115 H 118 H Pulse Rate [ Anterior Bilateral Throughout] Pulse Rate [ From Monitor] Respiratory 24 25 H 25 H Rate Respiratory Rate [Anterior Bilateral Throughout] Blood Pressure 84/47 89/47 91/56 O2 Sat by Pulse 97 97 96 Oximetry 03/06/18 03/06/18 03/06/18 03:00 03:15 03:30 Temperature Pulse Rate 118 H 118 H 133 H Pulse Rate [ Anterior Bilateral Throughout] Pulse Rate [ From Monitor] Respiratory 26 H 26 H 31 H Rate Respiratory Rate [Anterior Bilateral Throughout] Blood Pressure 90/54 106/62 106/62 O2 Sat by Pulse 97 98 93 Oximetry 03/06/18 03/06/18 03/06/18 03:46 04:00 04:15 Temperature 99.6 F Pulse Rate 138 H 135 H 133 H Pulse Rate [ Anterior Bilateral Throughout] Pulse Rate [ 125 H From Monitor] Respiratory 35 H 30 H 31 H Rate Respiratory Rate [Anterior Bilateral Throughout] Blood Pressure 106/62 112/72 116/71 O2 Sat by Pulse 95 91 92 Oximetry 03/06/18 03/06/18 03/06/18 04:30 04:42 04:46 Temperature Pulse Rate 135 H 130 H 128 H Pulse Rate [ Anterior Bilateral Throughout] Pulse Rate [ From Monitor] Respiratory 30 H 27 H Rate Respiratory Rate [Anterior Bilateral Throughout] Blood Pressure 104/71 104/71 97/62 O2 Sat by Pulse 92 97 93 Oximetry 03/06/18 03/06/18 03/06/18 05:00 05:15 05:30 Temperature Pulse Rate 126 H 124 H 125 H Pulse Rate [ Anterior Bilateral Throughout] Pulse Rate [ From Monitor] Respiratory 26 H 25 H 27 H Rate Respiratory Rate [Anterior Bilateral Throughout] Blood Pressure 98/59 94/53 93/57 O2 Sat by Pulse 96 97 97 Oximetry 03/06/18 03/06/18 03/06/18 05:45 06:00 06:15 Temperature Pulse Rate 123 H 121 H 119 H Pulse Rate [ Anterior Bilateral Throughout] Pulse Rate [ From Monitor] Respiratory 25 H 25 H 26 H Rate Respiratory Rate [Anterior Bilateral Throughout] Blood Pressure 100/59 91/51 93/50 O2 Sat by Pulse 99 99 97 Oximetry 03/06/18 03/06/18 03/06/18 06:30 06:46 07:00 Temperature Pulse Rate 120 H 126 H 119 H Pulse Rate [ Anterior Bilateral Throughout] Pulse Rate [ From Monitor] Respiratory 25 H 31 H 26 H Rate Respiratory Rate [Anterior Bilateral Throughout] Blood Pressure 95/63 112/77 89/58 O2 Sat by Pulse 98 97 100 Oximetry 03/06/18 03/06/18 03/06/18 07:15 08:00 08:29 Temperature 98.7 F Pulse Rate 117 H 124 H Pulse Rate [ Anterior Bilateral Throughout] Pulse Rate [ From Monitor] Respiratory 25 H 25 H Rate Respiratory Rate [Anterior Bilateral Throughout] Blood Pressure 76/41 98/61 O2 Sat by Pulse 100 Oximetry 06/25/18 06/25/18 08:33 09:22 Temperature Pulse Rate Pulse Rate [ 123 H 119 H Anterior Bilateral Throughout] Pulse Rate [ From Monitor] Respiratory Rate Respiratory 27 H 24 Rate [Anterior Bilateral Throughout] Blood Pressure O2 Sat by Pulse Oximetry - Lab 03/06/18 04:44 03/06/18 00:00 Most recent lab results Calcium 7.2 mg/dL (8.4-10.2) L 03/06/18 00:00 Phosphorus 1.50 mg/dL (2.5-4.5) L 02/28/18 17:10 Magnesium 1.40 mg/dL (1.7-2.3) L 03/03/18 12:37 Urine Creatinine 38.6 mg/dL (0.1-20.0) H 02/26/18 13:08 Urine Sodium 67 mmol/L 02/26/18 13:08
[2018-03-06] MEDS: HEPARIN SUB-Q SCH ×2 (10:49→21:53)
[2018-03-06] MEDS: ALBURX 25% (ALBUMIN) IV SCH ×2 (10:50→21:52)
[2018-03-06] MEDS: BABY ASPIRIN PO SCH (10:51)
[2018-03-06] MEDS: SODIUM BICARBONATE FEEDTUBE SCH ×3 (11:08→21:53)
[2018-03-06] MEDS: PEPCID PO SCH (11:09)
[2018-03-06] MEDS: ZYVOX 600MG/300ML 600 MG/300 ML BAG IV SCH ×2 (11:10→21:50)
--- NOTE | 2018-03-06 11:12 | Progress Note ---
Assessment and Plan Assessment: 1) Severe sepsis with septic shock: off levophed, still leukocytosis, no fever; source pneumonia 2) Complicated Multilobar pneumonia: due to MRSA and GAS -CT chest 03/05 josh lower lobes consolidations, no abscesses 3) Acute respiratory failure: on the vent 4) Acute encephalopathy 5) DIANNA - better 6) History of CVA 7) S/p cardiac arrest 8) New CVA - right MCA territory Plan: -continue zyvox IV D814 -continue penicillin G and Clindamycin IV D6/10 -monitor leukcoytosis -contact isolation Thanks Mimi Lay MD Subjective Date of service: 03/06/18 Principal diagnosis: Acute Hypoxemic Resp Failure; Severe Sepsis; Aspiration Pneumonai (HCAP) Interval history: Remains on the vent, alert, off levophed this am no fever x 2 days. Micro: Blood cx 02/26 ngtd Blood cx 03/04 ngtd Urine cx 02/26 neg Tracheal asp 02/26 MRSA and GAS x 2 Current Abx: zyvox 02/28 clinda 03/01 pen G 03/01 Previous Abx: zosyn vanco Objective - Exam Narrative Exam: Sedated eyes open on the vent NC/AT, ASH, OP with ETT, OGT Neck no LNs Lungs josh scattered rhonchi CV tachycardic Abd soft distended Ext +josh leg edema Neuro sedated Skin no rash Lines: - Constitutional Vitals: Vital Signs Temp Pulse Resp BP Pulse Ox 98.7 F 119 H 24 98/61 100 03/06/18 08:00 03/06/18 09:22 03/06/18 09:22 03/06/18 08:29 03/06/18 08:29 Temperature -Last 24 Hours Temperature 98.7 F Temperature 99.6 F Temperature 99.6 F Temperature 99.0 F Temperature 99.1 F Temperature 99.6 F Temperature 99.6 F Temperature 99.5 F Temperature 98.5 F - Labs CBC & Chem 7: 03/06/18 04:44 03/06/18 00:00 Labs: Abnormal lab results 03/03/18 03/05/18 03/05/18 Range/Units 08:37 11:51 16:00 WBC (4.5-11.0) K/mm3 RBC (3.65-5.03) M/mm3 Hgb (11.8-15.2) gm/dl Hct (35.5-45.6) % RDW (13.2-15.2) % Seg Neuts % (Manual) (40.0-70.0) % Lymphocytes % (Manual) (13.4-35.0) % Nucleated RBC % (0.0-0.9) % Seg Neutrophils # Man (1.8-7.7) K/mm3 Lymphocytes # (Manual) (1.2-5.4) K/mm3 POC ABG pH (7.35-7.45) POC ABG pCO2 (35-45) POC ABG pO2 (80-105) Chloride (98-107) mmol/L BUN (9-20) mg/dL Creatinine (0.8-1.5) mg/dL POC Glucose 118 H 131 H (70-105) Calcium (8.4-10.2) mg/dL Crossmatch See Detail 03/06/18 03/06/18 03/06/18 Range/Units 00:00 01:27 04:44 WBC 24.5 H (4.5-11.0) K/mm3 RBC 2.90 L (3.65-5.03) M/mm3 Hgb 8.5 L (11.8-15.2) gm/dl Hct 25.8 L (35.5-45.6) % RDW 16.3 H (13.2-15.2) % Seg Neuts % (Manual) 96.0 H (40.0-70.0) % Lymphocytes % (Manual) 1.5 L (13.4-35.0) % Nucleated RBC % 1.0 H (0.0-0.9) % Seg Neutrophils # Man 23.5 H (1.8-7.7) K/mm3 Lymphocytes # (Manual) 0.4 L (1.2-5.4) K/mm3 POC ABG pH (7.35-7.45) POC ABG pCO2 (35-45) POC ABG pO2 (80-105) Chloride 92.9 L (98-107) mmol/L BUN 67 H (9-20) mg/dL Creatinine 3.4 H (0.8-1.5) mg/dL POC Glucose 127 H (70-105) Calcium 7.2 L (8.4-10.2) mg/dL Crossmatch 03/06/18 03/06/18 Range/Units 04:54 05:54 WBC (4.5-11.0) K/mm3 RBC (3.65-5.03) M/mm3 Hgb (11.8-15.2) gm/dl Hct (35.5-45.6) % RDW (13.2-15.2) % Seg Neuts % (Manual) (40.0-70.0) % Lymphocytes % (Manual) (13.4-35.0) % Nucleated RBC % (0.0-0.9) % Seg Neutrophils # Man (1.8-7.7) K/mm3 Lymphocytes # (Manual) (1.2-5.4) K/mm3 POC ABG pH 7.551 H (7.35-7.45) POC ABG pCO2 29.5 L (35-45) POC ABG pO2 57 L (80-105) Chloride (98-107) mmol/L BUN (9-20) mg/dL Creatinine (0.8-1.5) mg/dL POC Glucose 108 H (70-105) Calcium (8.4-10.2) mg/dL Crossmatch
--- NOTE | 2018-03-06 11:25 | Progress Note ---
Assessment and Plan Severe sepsis with septic shock. Aspiration pneumonia, healthcare associated. Acute on chronic encephalopathy. Acute on chronic kidney injury. Anemia. Hypernatremia. Metabolic acidosis. Lactic acidosis. History of hypertension. History of diabetes. History of Alzheimer dementia. - continue daily SAT's and SBT's - discussed real possibility of tracheostomy with his son - continue bronchodilators with pulmonary hygiene per RT - continue to wean FiO2 for sats > 90% - addressing VAP bundle daily - continue to wean levophed for MAP > 65 mmHg - continue free water flushes - strict I's & O's re: DIANNA and will leave shrestha catheter in place for now - further azotemia management per business services officer (persistent azotemia so far) - continue volume resuscitation - continue to trend CRP and lactate prn - continue enteral nutrition as tolerated - continue mobility protocol for pressure ulcer prophylaxis - continue GI & VTE prophylaxis - continue antibiotics; on vancomycin for MRSA pneumonia and following other cultures - ID evaluation ongoing - continue contact precautions as now 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 The aggregate critical care time was [35] minutes without overlap. Time includes spent on; [x] Data Review and interpretation [x] Patient assessment and monitoring of vital signs [x] Documentation [x] Medication orders and management Subjective Date of service: 03/06/18 Principal diagnosis: Acute Hypoxemic Resp Failure; Severe Sepsis; Aspiration Pneumonai (HCAP) Interval history: Patient is seen today for: Acute Hypoxemic Resp Failure; Severe Sepsis; Aspiration Pneumonai (HCAP) Seen and examined at bedside; 24hour events reviewed; nursing and respiratory care staff consulted; no adverse overnight events reported to me; remains on MVS ; off levophed; AMS is persistent; not tolerating weaning trials well; no gross bleeding but H&H trending down Objective Vital Signs - 12hr 03/05/18 03/05/18 03/05/18 23:30 23:45 23:46 Temperature Pulse Rate 123 H 123 H 125 H Pulse Rate [ Anterior Bilateral Throughout] Pulse Rate [ From Monitor] Respiratory 31 H 28 H Rate Respiratory Rate [Anterior Bilateral Throughout] Blood Pressure 101/61 100/59 101/61 O2 Sat by Pulse 95 95 97 Oximetry 03/06/18 03/06/18 03/06/18 00:00 00:15 00:30 Temperature 99.6 F Pulse Rate 121 H 121 H 122 H Pulse Rate [ Anterior Bilateral Throughout] Pulse Rate [ 129 H From Monitor] Respiratory 28 H 26 H 25 H Rate Respiratory Rate [Anterior Bilateral Throughout] Blood Pressure 103/58 97/56 95/63 O2 Sat by Pulse 96 97 97 Oximetry 03/06/18 03/06/18 03/06/18 00:45 01:00 01:15 Temperature Pulse Rate 122 H 126 H 122 H Pulse Rate [ Anterior Bilateral Throughout] Pulse Rate [ From Monitor] Respiratory 22 21 25 H Rate Respiratory Rate [Anterior Bilateral Throughout] Blood Pressure 114/64 114/64 98/56 O2 Sat by Pulse 95 97 95 Oximetry 03/06/18 03/06/18 03/06/18 01:30 01:45 02:00 Temperature Pulse Rate 121 H 121 H 120 H Pulse Rate [ Anterior Bilateral Throughout] Pulse Rate [ From Monitor] Respiratory 25 H 25 H 26 H Rate Respiratory Rate [Anterior Bilateral Throughout] Blood Pressure 89/62 96/48 76/46 O2 Sat by Pulse 97 98 98 Oximetry 03/06/18 03/06/18 03/06/18 02:15 02:30 02:45 Temperature Pulse Rate 118 H 115 H 118 H Pulse Rate [ Anterior Bilateral Throughout] Pulse Rate [ From Monitor] Respiratory 24 25 H 25 H Rate Respiratory Rate [Anterior Bilateral Throughout] Blood Pressure 84/47 89/47 91/56 O2 Sat by Pulse 97 97 96 Oximetry 03/06/18 03/06/18 03/06/18 03:00 03:15 03:30 Temperature Pulse Rate 118 H 118 H 133 H Pulse Rate [ Anterior Bilateral Throughout] Pulse Rate [ From Monitor] Respiratory 26 H 26 H 31 H Rate Respiratory Rate [Anterior Bilateral Throughout] Blood Pressure 90/54 106/62 106/62 O2 Sat by Pulse 97 98 93 Oximetry 03/06/18 03/06/18 03/06/18 03:46 04:00 04:15 Temperature 99.6 F Pulse Rate 138 H 135 H 133 H Pulse Rate [ Anterior Bilateral Throughout] Pulse Rate [ 125 H From Monitor] Respiratory 35 H 30 H 31 H Rate Respiratory Rate [Anterior Bilateral Throughout] Blood Pressure 106/62 112/72 116/71 O2 Sat by Pulse 95 91 92 Oximetry 03/06/18 03/06/18 03/06/18 04:30 04:42 04:46 Temperature Pulse Rate 135 H 130 H 128 H Pulse Rate [ Anterior Bilateral Throughout] Pulse Rate [ From Monitor] Respiratory 30 H 27 H Rate Respiratory Rate [Anterior Bilateral Throughout] Blood Pressure 104/71 104/71 97/62 O2 Sat by Pulse 92 97 93 Oximetry 03/06/18 03/06/18 03/06/18 05:00 05:15 05:30 Temperature Pulse Rate 126 H 124 H 125 H Pulse Rate [ Anterior Bilateral Throughout] Pulse Rate [ From Monitor] Respiratory 26 H 25 H 27 H Rate Respiratory Rate [Anterior Bilateral Throughout] Blood Pressure 98/59 94/53 93/57 O2 Sat by Pulse 96 97 97 Oximetry 03/06/18 03/06/18 03/06/18 05:45 06:00 06:15 Temperature Pulse Rate 123 H 121 H 119 H Pulse Rate [ Anterior Bilateral Throughout] Pulse Rate [ From Monitor] Respiratory 25 H 25 H 26 H Rate Respiratory Rate [Anterior Bilateral Throughout] Blood Pressure 100/59 91/51 93/50 O2 Sat by Pulse 99 99 97 Oximetry 03/06/18 03/06/18 03/06/18 06:30 06:46 07:00 Temperature Pulse Rate 120 H 126 H 119 H Pulse Rate [ Anterior Bilateral Throughout] Pulse Rate [ From Monitor] Respiratory 25 H 31 H 26 H Rate Respiratory Rate [Anterior Bilateral Throughout] Blood Pressure 95/63 112/77 89/58 O2 Sat by Pulse 98 97 100 Oximetry 03/06/18 03/06/18 03/06/18 07:15 08:00 08:29 Temperature 98.7 F Pulse Rate 117 H 124 H Pulse Rate [ Anterior Bilateral Throughout] Pulse Rate [ From Monitor] Respiratory 25 H 25 H Rate Respiratory Rate [Anterior Bilateral Throughout] Blood Pressure 76/41 98/61 O2 Sat by Pulse 100 Oximetry 03/06/18 03/06/18 08:33 09:22 Temperature Pulse Rate Pulse Rate [ 123 H 119 H Anterior Bilateral Throughout] Pulse Rate [ From Monitor] Respiratory Rate Respiratory 27 H 24 Rate [Anterior Bilateral Throughout] Blood Pressure O2 Sat by Pulse Oximetry Constitutional: appears uncomfortable, other (elderly looking AAM, normocephalic and atraumativ on MVS with increased respiratory effort) Eyes: non-icteric ENT: oropharynx moist, other (ETT 24 cm TERESA) Neck: supple, no lymphadenopathy, no JVD, other (no thyromegaly) Effort: mildly labored Ascultation: Bilateral: diminished breath sounds, rales Percussion: Bilateral: not dull Cardiovascular: regular rate and rhythm, other (No R/M, S1,S2) Gastrointestinal: normoactive bowel sounds, soft, non-tender, non-distended, other (+ PEG; No HSM) Integumentary: other (poor turgor) Extremities: no cyanosis, no edema, pulses normal, no ischemia or petechiae Neurologic: pupils equal and round, unable to assess, other (left hemiplegia post prior CVA) Psychiatric: other (unable to assess re: encephalopathy) CBC and BMP: 03/10/18 06:55 03/10/18 06:55 ABG, PT/INR, D-dimer: ABG POC ABG pH 7.551 (7.35-7.45) H 03/06/18 04:54 POC ABG pCO2 29.5 (35-45) L 03/06/18 04:54 POC ABG pO2 57 (80-105) L 03/06/18 04:54 POC ABG HCO3 25.9 03/06/18 04:54 POC ABG Total CO2 27 03/06/18 04:54 POC ABG O2 Sat 93 03/06/18 04:54 PT/INR, D-dimer PT 21.5 Sec. (12.2-14.9) H 02/26/18 20:50 INR 1.75 (0.87-1.13) H 02/26/18 20:50 Abnormal lab findings: Abnormal Labs 02/25/18 02/25/18 02/25/18 23:15 23:15 23:15 WBC 12.3 H RBC 3.56 L Hgb 10.2 L Hct 33.7 L MCV 95 H MCHC 30 L RDW 17.7 H Seg Neuts % (Manual) 35.0 L Lymphocytes % (Manual) 13.0 L Monocytes % (Manual) 8.0 H Nucleated RBC % Seg Neutrophils # Man Lymphocytes # (Manual) Monocytes # (Manual) 1.0 H PT 20.3 H INR 1.63 H POC ABG pH POC ABG pCO2 POC ABG pO2 Sodium 152 H Potassium Chloride 108.7 H Carbon Dioxide 18 L BUN 136 H Creatinine 5.2 H Glucose POC Glucose Lactic Acid Calcium 8.0 L Phosphorus Magnesium Total Bilirubin 4.50 H AST 83 H C-Reactive Protein Albumin 2.7 L Urine Creatinine Crossmatch 02/25/18 02/25/18 02/26/18 23:15 23:30 03:06 WBC RBC Hgb Hct MCV MCHC RDW Seg Neuts % (Manual) Lymphocytes % (Manual) Monocytes % (Manual) Nucleated RBC % Seg Neutrophils # Man Lymphocytes # (Manual) Monocytes # (Manual) PT INR POC ABG pH POC ABG pCO2 25.2 L POC ABG pO2 69 L Sodium Potassium Chloride Carbon Dioxide BUN Creatinine Glucose POC Glucose Lactic Acid 7.00 H* 9.70 H* Calcium Phosphorus Magnesium Total Bilirubin AST C-Reactive Protein Albumin Urine Creatinine Crossmatch 02/26/18 02/26/18 02/26/18 05:12 05:43 07:39 WBC 23.7 H RBC 3.27 L Hgb 9.3 L Hct 31.1 L MCV 95 H MCHC 30 L RDW 17.4 H Seg Neuts % (Manual) Lymphocytes % (Manual) 2.0 L Monocytes % (Manual) Nucleated RBC % 1.0 H Seg Neutrophils # Man 16.1 H Lymphocytes # (Manual) 0.5 L Monocytes # (Manual) 1.2 H PT INR POC ABG pH POC ABG pCO2 19.5 L POC ABG pO2 72 L Sodium Potassium Chloride Carbon Dioxide BUN Creatinine Glucose POC Glucose Lactic Acid 8.80 H* Calcium Phosphorus Magnesium Total Bilirubin AST C-Reactive Protein Albumin Urine Creatinine Crossmatch 02/26/18 02/26/18 02/26/18 07:39 12:06 13:08 WBC RBC Hgb Hct MCV MCHC RDW Seg Neuts % (Manual) Lymphocytes % (Manual) Monocytes % (Manual) Nucleated RBC % Seg Neutrophils # Man Lymphocytes # (Manual) Monocytes # (Manual) PT INR POC ABG pH POC ABG pCO2 27.8 L POC ABG pO2 168 H Sodium 155 H Potassium Chloride 114.2 H Carbon Dioxide 14 L BUN 120 H Creatinine 4.6 H Glucose 108 H POC Glucose Lactic Acid Calcium 7.7 L Phosphorus Magnesium Total Bilirubin 4.50 H AST 105 H C-Reactive Protein Albumin 2.4 L Urine Creatinine 38.6 H Crossmatch 02/26/18 02/26/18 02/26/18 18:41 20:50 20:50 WBC RBC Hgb Hct MCV MCHC RDW Seg Neuts % (Manual) Lymphocytes % (Manual) Monocytes % (Manual) Nucleated RBC % Seg Neutrophils # Man Lymphocytes # (Manual) Monocytes # (Manual) PT 21.5 H INR 1.75 H POC ABG pH POC ABG pCO2 POC ABG pO2 Sodium Potassium Chloride Carbon Dioxide BUN Creatinine Glucose POC Glucose 135 H Lactic Acid Calcium Phosphorus Magnesium Total Bilirubin AST C-Reactive Protein 33.90 H Albumin Urine Creatinine Crossmatch 02/27/18 02/27/18 02/27/18 03:39 04:56 04:56 WBC 20.1 H RBC 2.92 L Hgb 8.4 L Hct 27.5 L MCV MCHC 31 L RDW 17.1 H Seg Neuts % (Manual) 92.0 H Lymphocytes % (Manual) 3.0 L Monocytes % (Manual) Nucleated RBC % Seg Neutrophils # Man 18.5 H Lymphocytes # (Manual) 0.6 L Monocytes # (Manual) PT INR POC ABG pH 7.453 H POC ABG pCO2 27.2 L POC ABG pO2 Sodium 149 H Potassium Chloride 113.1 H Carbon Dioxide 18 L BUN 103 H Creatinine 3.8 H Glucose 120 H POC Glucose Lactic Acid Calcium 7.8 L Phosphorus Magnesium Total Bilirubin AST C-Reactive Protein Albumin Urine Creatinine Crossmatch 02/27/18 02/27/18 02/27/18 12:37 12:45 17:51 WBC RBC Hgb Hct MCV MCHC RDW Seg Neuts % (Manual) Lymphocytes % (Manual) Monocytes % (Manual) Nucleated RBC % Seg Neutrophils # Man Lymphocytes # (Manual) Monocytes # (Manual) PT INR POC ABG pH POC ABG pCO2 POC ABG pO2 Sodium Potassium Chloride Carbon Dioxide BUN Creatinine Glucose POC Glucose 169 H 133 H Lactic Acid 2.90 H* Calcium Phosphorus Magnesium Total Bilirubin AST C-Reactive Protein Albumin Urine Creatinine Crossmatch 02/28/18 02/28/18 02/28/18 00:23 05:00 05:02 WBC RBC Hgb Hct MCV MCHC RDW Seg Neuts % (Manual) Lymphocytes % (Manual) Monocytes % (Manual) Nucleated RBC % Seg Neutrophils # Man Lymphocytes # (Manual) Monocytes # (Manual) PT INR POC ABG pH POC ABG pCO2 POC ABG pO2 Sodium Potassium Chloride Carbon Dioxide BUN Creatinine Glucose POC Glucose 161 H 116 H Lactic Acid 2.70 H* Calcium Phosphorus Magnesium Total Bilirubin AST C-Reactive Protein Albumin Urine Creatinine Crossmatch 02/28/18 02/28/18 02/28/18 05:28 07:04 09:00 WBC 22.3 H RBC 2.63 L Hgb 7.6 L Hct 24.1 L MCV MCHC 31 L RDW 17.4 H Seg Neuts % (Manual) 84.0 H Lymphocytes % (Manual) 8.0 L Monocytes % (Manual) Nucleated RBC % Seg Neutrophils # Man 18.7 H Lymphocytes # (Manual) Monocytes # (Manual) 1.1 H PT INR POC ABG pH 7.477 H POC ABG pCO2 24.6 L POC ABG pO2 57 L Sodium Potassium Chloride Carbon Dioxide BUN Creatinine Glucose POC Glucose Lactic Acid 3.10 H* Calcium Phosphorus Magnesium Total Bilirubin AST C-Reactive Protein Albumin Urine Creatinine Crossmatch 02/28/18 02/28/18 02/28/18 09:00 11:36 17:10 WBC RBC Hgb Hct MCV MCHC RDW Seg Neuts % (Manual) Lymphocytes % (Manual) Monocytes % (Manual) Nucleated RBC % Seg Neutrophils # Man Lymphocytes # (Manual) Monocytes # (Manual) PT INR POC ABG pH POC ABG pCO2 POC ABG pO2 Sodium Potassium 3.3 L 3.5 L Chloride Carbon Dioxide 21 L 19 L BUN 76 H 69 H Creatinine 2.8 H 2.5 H Glucose 104 H 124 H POC Glucose 107 H Lactic Acid Calcium 7.6 L 7.3 L Phosphorus 1.50 L Magnesium Total Bilirubin AST C-Reactive Protein Albumin Urine Creatinine Crossmatch 02/28/18 02/28/18 03/01/18 17:36 23:40 06:25 WBC RBC Hgb Hct MCV MCHC RDW Seg Neuts % (Manual) Lymphocytes % (Manual) Monocytes % (Manual) Nucleated RBC % Seg Neutrophils # Man Lymphocytes # (Manual) Monocytes # (Manual) PT INR POC ABG pH 7.542 H POC ABG pCO2 23.3 L POC ABG pO2 62 L Sodium Potassium Chloride Carbon Dioxide BUN Creatinine Glucose POC Glucose 151 H 111 H Lactic Acid Calcium Phosphorus Magnesium Total Bilirubin AST C-Reactive Protein Albumin Urine Creatinine Crossmatch 03/01/18 03/01/18 03/02/18 10:00 12:12 05:21 WBC RBC Hgb Hct MCV MCHC RDW Seg Neuts % (Manual) Lymphocytes % (Manual) Monocytes % (Manual) Nucleated RBC % Seg Neutrophils # Man Lymphocytes # (Manual) Monocytes # (Manual) PT INR POC ABG pH 7.473 H POC ABG pCO2 21.5 L POC ABG pO2 79 L Sodium Potassium 3.5 L Chloride Carbon Dioxide 18 L BUN 66 H Creatinine 2.8 H Glucose 103 H POC Glucose 176 H Lactic Acid Calcium 7.5 L Phosphorus Magnesium Total Bilirubin AST C-Reactive Protein Albumin Urine Creatinine Crossmatch 03/02/18 03/02/18 03/02/18 06:00 06:00 11:47 WBC 18.2 H RBC 2.43 L Hgb 7.2 L Hct 22.6 L MCV MCHC RDW 17.6 H Seg Neuts % (Manual) Lymphocytes % (Manual) Monocytes % (Manual) Nucleated RBC % Seg Neutrophils # Man Lymphocytes # (Manual) Monocytes # (Manual) PT INR POC ABG pH POC ABG pCO2 POC ABG pO2 Sodium Potassium Chloride Carbon Dioxide 17 L BUN 68 H Creatinine 3.1 H Glucose 106 H POC Glucose 136 H Lactic Acid Calcium 7.2 L Phosphorus Magnesium Total Bilirubin AST C-Reactive Protein Albumin Urine Creatinine Crossmatch 03/02/18 03/03/18 03/03/18 17:35 00:54 03:38 WBC RBC Hgb Hct MCV MCHC RDW Seg Neuts % (Manual) Lymphocytes % (Manual) Monocytes % (Manual) Nucleated RBC % Seg Neutrophils # Man Lymphocytes # (Manual) Monocytes # (Manual) PT INR POC ABG pH 7.451 H POC ABG pCO2 20.5 L POC ABG pO2 Sodium Potassium Chloride Carbon Dioxide BUN Creatinine Glucose POC Glucose 109 H 131 H Lactic Acid Calcium Phosphorus Magnesium Total Bilirubin AST C-Reactive Protein Albumin Urine Creatinine Crossmatch 03/03/18 03/03/18 03/03/18 06:15 06:15 08:37 WBC 21.1 H RBC 2.20 L Hgb 6.3 L Hct 20.8 L MCV 95 H MCHC 30 L RDW 17.8 H Seg Neuts % (Manual) 71.0 H Lymphocytes % (Manual) 8.0 L Monocytes % (Manual) Nucleated RBC % Seg Neutrophils # Man 15.0 H Lymphocytes # (Manual) Monocytes # (Manual) 1.3 H PT INR POC ABG pH POC ABG pCO2 POC ABG pO2 Sodium 130 L D Potassium Chloride 96.4 L Carbon Dioxide 14 L BUN 69 H Creatinine 3.1 H Glucose POC Glucose Lactic Acid Calcium 7.0 L Phosphorus Magnesium Total Bilirubin AST C-Reactive Protein Albumin Urine Creatinine Crossmatch See Detail 03/03/18 03/03/18 03/03/18 09:38 12:13 12:37 WBC RBC Hgb Hct MCV MCHC RDW Seg Neuts % (Manual) Lymphocytes % (Manual) Monocytes % (Manual) Nucleated RBC % Seg Neutrophils # Man Lymphocytes # (Manual) Monocytes # (Manual) PT INR POC ABG pH POC ABG pCO2 23.8 L POC ABG pO2 156 H Sodium Potassium Chloride Carbon Dioxide BUN Creatinine Glucose POC Glucose 119 H Lactic Acid Calcium Phosphorus Magnesium 1.40 L Total Bilirubin AST C-Reactive Protein Albumin Urine Creatinine Crossmatch 03/03/18 03/04/18 03/04/18 18:05 00:59 04:27 WBC RBC Hgb Hct MCV MCHC RDW Seg Neuts % (Manual) Lymphocytes % (Manual) Monocytes % (Manual) Nucleated RBC % Seg Neutrophils # Man Lymphocytes # (Manual) Monocytes # (Manual) PT INR POC ABG pH 7.486 H POC ABG pCO2 24.8 L POC ABG pO2 Sodium Potassium Chloride Carbon Dioxide BUN Creatinine Glucose POC Glucose 154 H 159 H Lactic Acid Calcium Phosphorus Magnesium Total Bilirubin AST C-Reactive Protein Albumin Urine Creatinine Crossmatch 03/04/18 03/04/18 03/04/18 05:30 05:30 05:38 WBC 22.6 H RBC 2.46 L Hgb 7.1 L Hct 21.7 L MCV MCHC RDW 17.2 H Seg Neuts % (Manual) 84.0 H Lymphocytes % (Manual) 5.0 L Monocytes % (Manual) Nucleated RBC % Seg Neutrophils # Man 19.0 H Lymphocytes # (Manual) 1.1 L Monocytes # (Manual) PT INR POC ABG pH POC ABG pCO2 POC ABG pO2 Sodium 135 L Potassium Chloride 96.2 L Carbon Dioxide 19 L BUN 69 H Creatinine 3.1 H Glucose 121 H POC Glucose 134 H Lactic Acid Calcium 7.1 L Phosphorus Magnesium Total Bilirubin AST C-Reactive Protein 19.80 H Albumin Urine Creatinine Crossmatch 03/04/18 03/04/18 03/05/18 11:47 17:53 00:22 WBC RBC Hgb Hct MCV MCHC RDW Seg Neuts % (Manual) Lymphocytes % (Manual) Monocytes % (Manual) Nucleated RBC % Seg Neutrophils # Man Lymphocytes # (Manual) Monocytes # (Manual) PT INR POC ABG pH POC ABG pCO2 POC ABG pO2 Sodium Potassium Chloride Carbon Dioxide BUN Creatinine Glucose POC Glucose 109 H 113 H 113 H Lactic Acid Calcium Phosphorus Magnesium Total Bilirubin AST C-Reactive Protein Albumin Urine Creatinine Crossmatch 03/05/18 03/05/18 03/05/18 05:15 05:15 05:36 WBC 24.3 H RBC 2.29 L Hgb 6.8 L Hct 20.3 L MCV MCHC RDW 16.7 H Seg Neuts % (Manual) 88.0 H Lymphocytes % (Manual) 3.0 L Monocytes % (Manual) Nucleated RBC % Seg Neutrophils # Man 21.4 H Lymphocytes # (Manual) 0.7 L Monocytes # (Manual) PT INR POC ABG pH 7.519 H POC ABG pCO2 27.0 L POC ABG pO2 68 L Sodium 132 L Potassium Chloride 91.2 L Carbon Dioxide BUN 69 H Creatinine 3.3 H Glucose POC Glucose Lactic Acid Calcium 6.9 L Phosphorus Magnesium Total Bilirubin AST C-Reactive Protein Albumin Urine Creatinine Crossmatch 03/05/18 03/05/18 03/06/18 11:51 16:00 00:00 WBC RBC Hgb Hct MCV MCHC RDW Seg Neuts % (Manual) Lymphocytes % (Manual) Monocytes % (Manual) Nucleated RBC % Seg Neutrophils # Man Lymphocytes # (Manual) Monocytes # (Manual) PT INR POC ABG pH POC ABG pCO2 POC ABG pO2 Sodium Potassium Chloride 92.9 L Carbon Dioxide BUN 67 H Creatinine 3.4 H Glucose POC Glucose 118 H 131 H Lactic Acid Calcium 7.2 L Phosphorus Magnesium Total Bilirubin AST C-Reactive Protein Albumin Urine Creatinine Crossmatch 03/06/18 03/06/18 03/06/18 01:27 04:44 04:54 WBC 24.5 H RBC 2.90 L Hgb 8.5 L Hct 25.8 L MCV MCHC RDW 16.3 H Seg Neuts % (Manual) 96.0 H Lymphocytes % (Manual) 1.5 L Monocytes % (Manual) Nucleated RBC % 1.0 H Seg Neutrophils # Man 23.5 H Lymphocytes # (Manual) 0.4 L Monocytes # (Manual) PT INR POC ABG pH 7.551 H POC ABG pCO2 29.5 L POC ABG pO2 57 L Sodium Potassium Chloride Carbon Dioxide BUN Creatinine Glucose POC Glucose 127 H Lactic Acid Calcium Phosphorus Magnesium Total Bilirubin AST C-Reactive Protein Albumin Urine Creatinine Crossmatch 03/06/18 05:54 WBC RBC Hgb Hct MCV MCHC RDW Seg Neuts % (Manual) Lymphocytes % (Manual) Monocytes % (Manual) Nucleated RBC % Seg Neutrophils # Man Lymphocytes # (Manual) Monocytes # (Manual) PT INR POC ABG pH POC ABG pCO2 POC ABG pO2 Sodium Potassium Chloride Carbon Dioxide BUN Creatinine Glucose POC Glucose 108 H Lactic Acid Calcium Phosphorus Magnesium Total Bilirubin AST C-Reactive Protein Albumin Urine Creatinine Crossmatch Chest x-ray: image reviewed Allied health notes reviewed: nursing
--- NOTE | 2018-03-06 14:52 | Consultation ---
History of Present Illness Consult date: 03/06/18 Requesting physician: PHOENIX PAYNE Reason for Consult: stroke Chief complaint: stroke History of present illness: This 72-year-old -[place] male per ER note: with "history of CVA, hemiplegia, Alzheimer's, noncommunicative, who presents from correction for evaluation of decreasing baseline activity and mental status since 7 PM earlier today, approximately 4 hours prior to arrival, per nursing staff. This medicine EMS and the patient was not acting his normal self and exhibited increased work of breathing. Per EMS the patient was found was seen hypoxic and hypotensive." Last night he had two GTCs per nurse and was treated with levetiracetam and Ativan. CT scan showed new right MCA stroke fairly large. Also seen are several large old strokes and old left meningioma I ordered an EEG has just now been done. No seizures have been seen since the levetiracetam was started. I had previously done a consultation on him for right sided embolic strokes in December of this year. I had suggested possibly a 30 day event monitor as an outpatient. Past History Past Medical History: hypertension, hyperlipidemia, stroke, other (CVA) Past Surgical History: No surgical history Medications and Allergies Allergies Allergy/AdvReac Type Severity Reaction Status Date / Time No Known Allergies Allergy Verified 12/26/14 12:14 Home Medications Medication Instructions Recorded Confirmed Last Taken Type Amlodipine Besylate [Norvasc] 10 mg PO DAILY 12/27/17 02/26/18 Unknown History Finasteride [Proscar] 5 mg PO DAILY 12/27/17 02/26/18 Unknown History HYDROcodone/ACETAMINOPHEN [Gilbert 1 each PO Q6H PRN #10 tablet 01/04/18 02/26/18 Unknown Rx 5-325 Tablet] Metoprolol [Lopressor TAB] 25 mg PO BID #60 tablet 01/04/18 02/26/18 Unknown Rx hydrALAZINE [Apresoline TAB] 50 mg PO Q8HR #30 tablet 01/04/18 02/26/18 Unknown Rx Acetaminophen 650 mg PO Q6H PRN 02/26/18 02/26/18 Unknown History Apixaban [Eliquis] 2.5 mg PO BID 02/26/18 02/26/18 Unknown History Omeprazole Magnesium [PriLOSEC Otc] 20 mg PO QDAY 02/26/18 02/26/18 Unknown History Torsemide [Demadex] 10 mg PO QDAY 02/26/18 02/26/18 Unknown History Active Meds: Active Medications Acetaminophen (Tylenol) 650 mg CA Q6H PRN PRN Reason: Pain MILD(1-3)/Fever >100.5/GALVIN Acetaminophen (Tylenol) 650 mg FEEDTUBE Q6H PRN PRN Reason: Pain MILD(1-3)/Fever >100.5/GALVIN Last Admin: 03/01/18 10:02 Dose: 650 mg Albumin Human (Alburx 25% (Albumin)) 25 gm IV Q12HR [facility] Last Admin: 03/06/18 10:50 Dose: 25 gm Albuterol/Ipratropium (Duoneb *Not For Prn Use*) 1 ampul IH Q8HRT [facility] Last Admin: 03/06/18 08:32 Dose: 1 ampul Lipase/Protease/Amylase (Pancreaze Dr 10,500 Unit) 1 each FEEDTUBE PRN PRN PRN Reason: For Clogged Feeding Tube Aspirin (Baby Aspirin) 81 mg PO QDAY [facility] Last Admin: 03/06/18 10:51 Dose: 81 mg Atorvastatin Calcium (Lipitor) 20 mg PO QHS [facility] Dextrose (D50w (25gm) Syringe) 50 ml IV PRN PRN PRN Reason: Hypoglycemia Famotidine (Pepcid) 20 mg PO DAILY [facility] Last Admin: 03/06/18 11:09 Dose: 20 mg Heparin Sodium (Porcine) (Heparin) 5,000 unit SUB-Q Q12HR [facility] Last Admin: 03/06/18 10:49 Dose: 5,000 unit Hydrophilic Ointment (Vaseline Lip Therapy) 1 applic TP Q2HR PRN PRN Reason: Dry Lips Last Admin: 02/26/18 16:05 Dose: 1 applic Fentanyl Citrate (Fentanyl Drip Premix) 2,000 mcg in 100 mls @ 3.402 mls/hr IV TITR [facility]; Protocol Last Titration: 03/03/18 08:16 Dose: 0 mcg/kg/hr, 0 mls/hr Propofol (Diprivan 10 Mg/Ml) 1,000 mg in 100 mls @ 2.041 mls/hr IV TITR [facility]; Protocol Norepinephrine (Levophed Drip 4 Mg/Ns 250 Ml) 4 mg in 250 mls @ 7.5 mls/hr IV TITR [facility]; Protocol Last Titration: 03/06/18 08:37 Dose: 0 mcg/min, 0 mls/hr Linezolid (Zyvox 600mg/300ml) 600 mg in 300 mls @ 300 mls/hr IV Q12HR [facility]; Protocol Last Admin: 03/06/18 11:10 Dose: 300 mls/hr Clindamycin HCl (Cleocin 600 Mg/50 Ml) 600 mg in 50 mls @ 100 mls/hr IV Q8HR [facility]; Protocol Last Admin: 03/06/18 06:06 Dose: 100 mls/hr Penicillin G Potassium 4 mil. (units/ Sodium Chloride) 50 mls @ 100 mls/hr IV Q6HR [facility] Last Admin: 03/06/18 06:07 Dose: 100 mls/hr Insulin Human Regular (Humulin R) 0 units SUB-Q Q6HR [facility]; Protocol Last Admin: 03/06/18 07:39 Dose: Not Given Levetiracetam (Keppra) 500 mg FEEDTUBE Q12H [facility] Lorazepam (Ativan) 1 mg IV Q4H PRN PRN Reason: Seizures Last Admin: 03/05/18 02:59 Dose: 1 mg Morphine Sulfate (Morphine) 2 mg IV Q4H PRN PRN Reason: Pain, Moderate (4-6) Multi-Ingred Cream/Lotion/Oil/Oint (Artificial Tears Ophth Oint) 1 applic OU Q4HR PRN PRN Reason: Dry Eye(s) Last Admin: 02/26/18 14:48 Dose: 1 applic Promethazine HCl (Phenergan) 25 mg CA Q6H PRN PRN Reason: N/V IF NPO AND NO IV ACCESS Quetiapine Fumarate (Seroquel) 100 mg PO BID [facility] Last Admin: 03/06/18 10:51 Dose: 100 mg Simple Syrup (Simple Syrup) 15 ml FEEDTUBE PRN PRN PRN Reason: Hypoglycemia Simple Syrup (Simple Syrup) 30 ml FEEDTUBE PRN PRN PRN Reason: Hypoglycemia Sodium Bicarbonate (Sodium Bicarbonate) 325 mg FEEDTUBE PRN PRN PRN Reason: For Clogged Feeding Tube Sodium Bicarbonate (Sodium Bicarbonate) 1,300 mg FEEDTUBE TID [facility] Last Admin: 03/06/18 11:08 Dose: 1,300 mg Sodium Chloride (Sodium Chloride Flush Syringe 10 Ml) 10 ml IV BID [facility] Last Admin: 03/06/18 07:38 Dose: Not Given Sodium Chloride (Sodium Chloride Flush Syringe 10 Ml) 10 ml IV PRN PRN PRN Reason: LINE FLUSH Last Admin: 03/02/18 01:15 Dose: 10 ml Sodium Chloride (Nacl 0.9% 500 Ml) 1 ml IV DIRECT [facility] Physical Examination - Vital Signs Vital Signs: Vital Signs Pulse Resp 128 H 16 02/25/18 22:50 02/25/18 22:50 - Physical Exam Narrative exam: General appearance: well developed well nourished (per BMI estimated 24.8 based on weight and prior listed height at 5 ft 7 in) early 70's male in [facility], intubated. HEENT: atraumatic, normocephalic, Misael not enlarged or indurated. No bruits. Oropharynx obscured by endotracheal tube. Neck: supple, no bruits. Heart: no murmur or extra sounds. Extremities: no clubbing or cyanosis, 2+ edema. No dorsalis pedis pulses on either side, no right posterior tibial pulse but cannot check left PT pulse due to bandage. Neurologic Exam: Mental status: not clear that he is awake. Eyes open some spontaneously. Does not obey commands. No response to orientation questions. Cranial nerves: no blink to threat, cannot see fundi since he moves eyes to avoid the light, PERRL (prominent hippus, need to use ophthalmoscope to see reaction), EOMs full horizontally spontaneously, but not tracking me and (+) Doll's eyes, wrinkles right forehead upwards to local pinprick, corneals present X 2, furrows forehead on right to supraorbital pressure on the right, cannot assess Patricio, gags are slightly positive, cough positive to tracheal suction, cannot assess shoulder shrug or tongue protrusion. Cerebellar: cannot assess. Sensory: withdraws to pinprick slightly both hands and more so left>right foot, nailbed pressure produces withdrawal left hand and both feet and adducts right knee. Motor Exam Upper Extremities: semipurposeful motion right towards Arzola, withdraws to nailbed pressure left not right. Slight adduction right arm to supraorbital pressure, adducts left arm with palmar rub. Motor Exam Lower Extremities: no withdraws to nailbed pressure both feet and to plantar rub X 2 and pinprick as noted above. No response to supraorbital pressure or TMJ pressure or chest or neck skin pinch. Reflexes: palmomental is negative, snout is positive, jaw jerk is negative. Triceps are 1+, biceps are trace right and 2 left, and brachioradialis are 1+ bilaterally. Waleska's is negative bilaterally. Knee jerks and ankle jerks are 0 bilaterally without ankle clonus. Toes are downgoing right and upgoing left to Babinski testing. Results - Laboratory Findings CBC and BMP: 03/06/18 04:44 03/06/18 00:00 Abnormal Lab Findings: Abnormal Labs 02/25/18 02/25/18 02/25/18 23:15 23:15 23:15 WBC 12.3 H RBC 3.56 L Hgb 10.2 L Hct 33.7 L MCV 95 H MCHC 30 L RDW 17.7 H Seg Neuts % (Manual) 35.0 L Lymphocytes % (Manual) 13.0 L Monocytes % (Manual) 8.0 H Nucleated RBC % Seg Neutrophils # Man Lymphocytes # (Manual) Monocytes # (Manual) 1.0 H PT 20.3 H INR 1.63 H POC ABG pH POC ABG pCO2 POC ABG pO2 Sodium 152 H Potassium Chloride 108.7 H Carbon Dioxide 18 L BUN 136 H Creatinine 5.2 H Glucose POC Glucose Lactic Acid Calcium 8.0 L Phosphorus Magnesium Total Bilirubin 4.50 H AST 83 H C-Reactive Protein Albumin 2.7 L Urine Creatinine Crossmatch 02/25/18 02/25/18 02/26/18 23:15 23:30 03:06 WBC RBC Hgb Hct MCV MCHC RDW Seg Neuts % (Manual) Lymphocytes % (Manual) Monocytes % (Manual) Nucleated RBC % Seg Neutrophils # Man Lymphocytes # (Manual) Monocytes # (Manual) PT INR POC ABG pH POC ABG pCO2 25.2 L POC ABG pO2 69 L Sodium Potassium Chloride Carbon Dioxide BUN Creatinine Glucose POC Glucose Lactic Acid 7.00 H* 9.70 H* Calcium Phosphorus Magnesium Total Bilirubin AST C-Reactive Protein Albumin Urine Creatinine Crossmatch 02/26/18 02/26/18 02/26/18 05:12 05:43 07:39 WBC 23.7 H RBC 3.27 L Hgb 9.3 L Hct 31.1 L MCV 95 H MCHC 30 L RDW 17.4 H Seg Neuts % (Manual) Lymphocytes % (Manual) 2.0 L Monocytes % (Manual) Nucleated RBC % 1.0 H Seg Neutrophils # Man 16.1 H Lymphocytes # (Manual) 0.5 L Monocytes # (Manual) 1.2 H PT INR POC ABG pH POC ABG pCO2 19.5 L POC ABG pO2 72 L Sodium Potassium Chloride Carbon Dioxide BUN Creatinine Glucose POC Glucose Lactic Acid 8.80 H* Calcium Phosphorus Magnesium Total Bilirubin AST C-Reactive Protein Albumin Urine Creatinine Crossmatch 02/26/18 02/26/18 02/26/18 07:39 12:06 13:08 WBC RBC Hgb Hct MCV MCHC RDW Seg Neuts % (Manual) Lymphocytes % (Manual) Monocytes % (Manual) Nucleated RBC % Seg Neutrophils # Man Lymphocytes # (Manual) Monocytes # (Manual) PT INR POC ABG pH POC ABG pCO2 27.8 L POC ABG pO2 168 H Sodium 155 H Potassium Chloride 114.2 H Carbon Dioxide 14 L BUN 120 H Creatinine 4.6 H Glucose 108 H POC Glucose Lactic Acid Calcium 7.7 L Phosphorus Magnesium Total Bilirubin 4.50 H AST 105 H C-Reactive Protein Albumin 2.4 L Urine Creatinine 38.6 H Crossmatch 02/26/18 02/26/18 02/26/18 18:41 20:50 20:50 WBC RBC Hgb Hct MCV MCHC RDW Seg Neuts % (Manual) Lymphocytes % (Manual) Monocytes % (Manual) Nucleated RBC % Seg Neutrophils # Man Lymphocytes # (Manual) Monocytes # (Manual) PT 21.5 H INR 1.75 H POC ABG pH POC ABG pCO2 POC ABG pO2 Sodium Potassium Chloride Carbon Dioxide BUN Creatinine Glucose POC Glucose 135 H Lactic Acid Calcium Phosphorus Magnesium Total Bilirubin AST C-Reactive Protein 33.90 H Albumin Urine Creatinine Crossmatch 02/27/18 02/27/18 02/27/18 03:39 04:56 04:56 WBC 20.1 H RBC 2.92 L Hgb 8.4 L Hct 27.5 L MCV MCHC 31 L RDW 17.1 H Seg Neuts % (Manual) 92.0 H Lymphocytes % (Manual) 3.0 L Monocytes % (Manual) Nucleated RBC % Seg Neutrophils # Man 18.5 H Lymphocytes # (Manual) 0.6 L Monocytes # (Manual) PT INR POC ABG pH 7.453 H POC ABG pCO2 27.2 L POC ABG pO2 Sodium 149 H Potassium Chloride 113.1 H Carbon Dioxide 18 L BUN 103 H Creatinine 3.8 H Glucose 120 H POC Glucose Lactic Acid Calcium 7.8 L Phosphorus Magnesium Total Bilirubin AST C-Reactive Protein Albumin Urine Creatinine Crossmatch 02/27/18 02/27/18 02/27/18 12:37 12:45 17:51 WBC RBC Hgb Hct MCV MCHC RDW Seg Neuts % (Manual) Lymphocytes % (Manual) Monocytes % (Manual) Nucleated RBC % Seg Neutrophils # Man Lymphocytes # (Manual) Monocytes # (Manual) PT INR POC ABG pH POC ABG pCO2 POC ABG pO2 Sodium Potassium Chloride Carbon Dioxide BUN Creatinine Glucose POC Glucose 169 H 133 H Lactic Acid 2.90 H* Calcium Phosphorus Magnesium Total Bilirubin AST C-Reactive Protein Albumin Urine Creatinine Crossmatch 02/28/18 02/28/18 02/28/18 00:23 05:00 05:02 WBC RBC Hgb Hct MCV MCHC RDW Seg Neuts % (Manual) Lymphocytes % (Manual) Monocytes % (Manual) Nucleated RBC % Seg Neutrophils # Man Lymphocytes # (Manual) Monocytes # (Manual) PT INR POC ABG pH POC ABG pCO2 POC ABG pO2 Sodium Potassium Chloride Carbon Dioxide BUN Creatinine Glucose POC Glucose 161 H 116 H Lactic Acid 2.70 H* Calcium Phosphorus Magnesium Total Bilirubin AST C-Reactive Protein Albumin Urine Creatinine Crossmatch 02/28/18 02/28/18 02/28/18 05:28 07:04 09:00 WBC 22.3 H RBC 2.63 L Hgb 7.6 L Hct 24.1 L MCV MCHC 31 L RDW 17.4 H Seg Neuts % (Manual) 84.0 H Lymphocytes % (Manual) 8.0 L Monocytes % (Manual) Nucleated RBC % Seg Neutrophils # Man 18.7 H Lymphocytes # (Manual) Monocytes # (Manual) 1.1 H PT INR POC ABG pH 7.477 H POC ABG pCO2 24.6 L POC ABG pO2 57 L Sodium Potassium Chloride Carbon Dioxide BUN Creatinine Glucose POC Glucose Lactic Acid 3.10 H* Calcium Phosphorus Magnesium Total Bilirubin AST C-Reactive Protein Albumin Urine Creatinine Crossmatch 02/28/18 02/28/18 02/28/18 09:00 11:36 17:10 WBC RBC Hgb Hct MCV MCHC RDW Seg Neuts % (Manual) Lymphocytes % (Manual) Monocytes % (Manual) Nucleated RBC % Seg Neutrophils # Man Lymphocytes # (Manual) Monocytes # (Manual) PT INR POC ABG pH POC ABG pCO2 POC ABG pO2 Sodium Potassium 3.3 L 3.5 L Chloride Carbon Dioxide 21 L 19 L BUN 76 H 69 H Creatinine 2.8 H 2.5 H Glucose 104 H 124 H POC Glucose 107 H Lactic Acid Calcium 7.6 L 7.3 L Phosphorus 1.50 L Magnesium Total Bilirubin AST C-Reactive Protein Albumin Urine Creatinine Crossmatch 02/28/18 02/28/18 03/01/18 17:36 23:40 06:25 WBC RBC Hgb Hct MCV MCHC RDW Seg Neuts % (Manual) Lymphocytes % (Manual) Monocytes % (Manual) Nucleated RBC % Seg Neutrophils # Man Lymphocytes # (Manual) Monocytes # (Manual) PT INR POC ABG pH 7.542 H POC ABG pCO2 23.3 L POC ABG pO2 62 L Sodium Potassium Chloride Carbon Dioxide BUN Creatinine Glucose POC Glucose 151 H 111 H Lactic Acid Calcium Phosphorus Magnesium Total Bilirubin AST C-Reactive Protein Albumin Urine Creatinine Crossmatch 03/01/18 03/01/18 03/02/18 10:00 12:12 05:21 WBC RBC Hgb Hct MCV MCHC RDW Seg Neuts % (Manual) Lymphocytes % (Manual) Monocytes % (Manual) Nucleated RBC % Seg Neutrophils # Man Lymphocytes # (Manual) Monocytes # (Manual) PT INR POC ABG pH 7.473 H POC ABG pCO2 21.5 L POC ABG pO2 79 L Sodium Potassium 3.5 L Chloride Carbon Dioxide 18 L BUN 66 H Creatinine 2.8 H Glucose 103 H POC Glucose 176 H Lactic Acid Calcium 7.5 L Phosphorus Magnesium Total Bilirubin AST C-Reactive Protein Albumin Urine Creatinine Crossmatch 03/02/18 03/02/18 03/02/18 06:00 06:00 11:47 WBC 18.2 H RBC 2.43 L Hgb 7.2 L Hct 22.6 L MCV MCHC RDW 17.6 H Seg Neuts % (Manual) Lymphocytes % (Manual) Monocytes % (Manual) Nucleated RBC % Seg Neutrophils # Man Lymphocytes # (Manual) Monocytes # (Manual) PT INR POC ABG pH POC ABG pCO2 POC ABG pO2 Sodium Potassium Chloride Carbon Dioxide 17 L BUN 68 H Creatinine 3.1 H Glucose 106 H POC Glucose 136 H Lactic Acid Calcium 7.2 L Phosphorus Magnesium Total Bilirubin AST C-Reactive Protein Albumin Urine Creatinine Crossmatch 03/02/18 03/03/18 03/03/18 17:35 00:54 03:38 WBC RBC Hgb Hct MCV MCHC RDW Seg Neuts % (Manual) Lymphocytes % (Manual) Monocytes % (Manual) Nucleated RBC % Seg Neutrophils # Man Lymphocytes # (Manual) Monocytes # (Manual) PT INR POC ABG pH 7.451 H POC ABG pCO2 20.5 L POC ABG pO2 Sodium Potassium Chloride Carbon Dioxide BUN Creatinine Glucose POC Glucose 109 H 131 H Lactic Acid Calcium Phosphorus Magnesium Total Bilirubin AST C-Reactive Protein Albumin Urine Creatinine Crossmatch 03/03/18 03/03/18 03/03/18 06:15 06:15 08:37 WBC 21.1 H RBC 2.20 L Hgb 6.3 L Hct 20.8 L MCV 95 H MCHC 30 L RDW 17.8 H Seg Neuts % (Manual) 71.0 H Lymphocytes % (Manual) 8.0 L Monocytes % (Manual) Nucleated RBC % Seg Neutrophils # Man 15.0 H Lymphocytes # (Manual) Monocytes # (Manual) 1.3 H PT INR POC ABG pH POC ABG pCO2 POC ABG pO2 Sodium 130 L D Potassium Chloride 96.4 L Carbon Dioxide 14 L BUN 69 H Creatinine 3.1 H Glucose POC Glucose Lactic Acid Calcium 7.0 L Phosphorus Magnesium Total Bilirubin AST C-Reactive Protein Albumin Urine Creatinine Crossmatch See Detail 03/03/18 03/03/18 03/03/18 09:38 12:13 12:37 WBC RBC Hgb Hct MCV MCHC RDW Seg Neuts % (Manual) Lymphocytes % (Manual) Monocytes % (Manual) Nucleated RBC % Seg Neutrophils # Man Lymphocytes # (Manual) Monocytes # (Manual) PT INR POC ABG pH POC ABG pCO2 23.8 L POC ABG pO2 156 H Sodium Potassium Chloride Carbon Dioxide BUN Creatinine Glucose POC Glucose 119 H Lactic Acid Calcium Phosphorus Magnesium 1.40 L Total Bilirubin AST C-Reactive Protein Albumin Urine Creatinine Crossmatch 03/03/18 03/04/18 03/04/18 18:05 00:59 04:27 WBC RBC Hgb Hct MCV MCHC RDW Seg Neuts % (Manual) Lymphocytes % (Manual) Monocytes % (Manual) Nucleated RBC % Seg Neutrophils # Man Lymphocytes # (Manual) Monocytes # (Manual) PT INR POC ABG pH 7.486 H POC ABG pCO2 24.8 L POC ABG pO2 Sodium Potassium Chloride Carbon Dioxide BUN Creatinine Glucose POC Glucose 154 H 159 H Lactic Acid Calcium Phosphorus Magnesium Total Bilirubin AST C-Reactive Protein Albumin Urine Creatinine Crossmatch 03/04/18 03/04/18 03/04/18 05:30 05:30 05:38 WBC 22.6 H RBC 2.46 L Hgb 7.1 L Hct 21.7 L MCV MCHC RDW 17.2 H Seg Neuts % (Manual) 84.0 H Lymphocytes % (Manual) 5.0 L Monocytes % (Manual) Nucleated RBC % Seg Neutrophils # Man 19.0 H Lymphocytes # (Manual) 1.1 L Monocytes # (Manual) PT INR POC ABG pH POC ABG pCO2 POC ABG pO2 Sodium 135 L Potassium Chloride 96.2 L Carbon Dioxide 19 L BUN 69 H Creatinine 3.1 H Glucose 121 H POC Glucose 134 H Lactic Acid Calcium 7.1 L Phosphorus Magnesium Total Bilirubin AST C-Reactive Protein 19.80 H Albumin Urine Creatinine Crossmatch 03/04/18 03/04/18 03/05/18 11:47 17:53 00:22 WBC RBC Hgb Hct MCV MCHC RDW Seg Neuts % (Manual) Lymphocytes % (Manual) Monocytes % (Manual) Nucleated RBC % Seg Neutrophils # Man Lymphocytes # (Manual) Monocytes # (Manual) PT INR POC ABG pH POC ABG pCO2 POC ABG pO2 Sodium Potassium Chloride Carbon Dioxide BUN Creatinine Glucose POC Glucose 109 H 113 H 113 H Lactic Acid Calcium Phosphorus Magnesium Total Bilirubin AST C-Reactive Protein Albumin Urine Creatinine Crossmatch 03/05/18 03/05/18 03/05/18 05:15 05:15 05:36 WBC 24.3 H RBC 2.29 L Hgb 6.8 L Hct 20.3 L MCV MCHC RDW 16.7 H Seg Neuts % (Manual) 88.0 H Lymphocytes % (Manual) 3.0 L Monocytes % (Manual) Nucleated RBC % Seg Neutrophils # Man 21.4 H Lymphocytes # (Manual) 0.7 L Monocytes # (Manual) PT INR POC ABG pH 7.519 H POC ABG pCO2 27.0 L POC ABG pO2 68 L Sodium 132 L Potassium Chloride 91.2 L Carbon Dioxide BUN 69 H Creatinine 3.3 H Glucose POC Glucose Lactic Acid Calcium 6.9 L Phosphorus Magnesium Total Bilirubin AST C-Reactive Protein Albumin Urine Creatinine Crossmatch 03/05/18 03/05/18 03/06/18 11:51 16:00 00:00 WBC RBC Hgb Hct MCV MCHC RDW Seg Neuts % (Manual) Lymphocytes % (Manual) Monocytes % (Manual) Nucleated RBC % Seg Neutrophils # Man Lymphocytes # (Manual) Monocytes # (Manual) PT INR POC ABG pH POC ABG pCO2 POC ABG pO2 Sodium Potassium Chloride 92.9 L Carbon Dioxide BUN 67 H Creatinine 3.4 H Glucose POC Glucose 118 H 131 H Lactic Acid Calcium 7.2 L Phosphorus Magnesium Total Bilirubin AST C-Reactive Protein Albumin Urine Creatinine Crossmatch 03/06/18 03/06/18 03/06/18 01:27 04:44 04:54 WBC 24.5 H RBC 2.90 L Hgb 8.5 L Hct 25.8 L MCV MCHC RDW 16.3 H Seg Neuts % (Manual) 96.0 H Lymphocytes % (Manual) 1.5 L Monocytes % (Manual) Nucleated RBC % 1.0 H Seg Neutrophils # Man 23.5 H Lymphocytes # (Manual) 0.4 L Monocytes # (Manual) PT INR POC ABG pH 7.551 H POC ABG pCO2 29.5 L POC ABG pO2 57 L Sodium Potassium Chloride Carbon Dioxide BUN Creatinine Glucose POC Glucose 127 H Lactic Acid Calcium Phosphorus Magnesium Total Bilirubin AST C-Reactive Protein Albumin Urine Creatinine Crossmatch 03/06/18 03/06/18 05:54 12:08 WBC RBC Hgb Hct MCV MCHC RDW Seg Neuts % (Manual) Lymphocytes % (Manual) Monocytes % (Manual) Nucleated RBC % Seg Neutrophils # Man Lymphocytes # (Manual) Monocytes # (Manual) PT INR POC ABG pH POC ABG pCO2 POC ABG pO2 Sodium Potassium Chloride Carbon Dioxide BUN Creatinine Glucose POC Glucose 108 H 123 H Lactic Acid Calcium Phosphorus Magnesium Total Bilirubin AST C-Reactive Protein Albumin Urine Creatinine Crossmatch Assessment and Plan Impression: 1. Embolic stroke 2. Complex partial seizures with secondary generalization Plan: 1. EEG done, will give preliminary reading. 2. Levetiracetam dose is correct for his renal function. 3. Ordered restraints, primarily for right arm/wrist. 4. If there is consideration for return to Eliquis, should wait 3 weeks given large stroke, to allow return of cerebral autoregulation. 35 min critical care time spent including review of multiple CT scan images. Thank you for an interesting consultation on this unfortunate early 70s male. Signing off. Call for any further questions.
--- NOTE | 2018-03-06 17:09 | Electroencephalogram Report ---
Electroencephalogram EEG Date of exam: 03/06/18 Description: EEG preliminary findings: no alpha activity, tachycardia, slowing left frontal and left temporal at times, no epileptiform activity. Interpretation: EEG preliminary reading: slowing left frontotemporal, which could be due to old strokes and left frontal meningioma. Some tachycardia in EKG channel. No epileptiform activity.
[2018-03-07] MEDS: HumuLIN R SUB-Q SCH ×3 (02:50→12:50)
[2018-03-07] MEDS: PFIZERPEN 4 MIL.UNITS in NACL 0.9% 50 ML IV SCH ×4 (03:25→18:17)
[2018-03-07] MEDS: SODIUM CHLORIDE FLUSH SYRINGE 10 ML IV SCH ×2 (03:28→09:32)
[2018-03-07 05:55] LABS: Hematocrit 21.5 % (35.5-45.6); Hemoglobin 7.3 gm/dl (11.8-15.2); Mean Corpuscular HGB Conc 34 % (32-34); Mean Corpuscular Hemoglobin 30 pg (28-32); Mean Corpuscular Volume 89 fl (84-94); Platelet Count 190 K/mm3 (140-440); Red Blood Count 2.41 M/mm3 (3.65-5.03); Red Cell Distribution Width 16.6 % (13.2-15.2)
[2018-03-07 06:19] LABS: Calcium 7.3 mg/dL (8.4-10.2)
[2018-03-07] MEDS: CLEOCIN 600 MG/50 mL 600 MG/50 ML BAG IV SCH ×3 (06:48→21:34)
[2018-03-07] MEDS: KEPPRA FEEDTUBE SCH ×2 (06:52→18:17)
--- NOTE | 2018-03-07 08:13 | Progress Note ---
Assessment and Plan Severe sepsis with septic shock. Aspiration pneumonia, healthcare associated. Acute hypoxemic respiratory failure on MVS Acute/subacute stroke Acute on chronic encephalopathy. Acute on chronic kidney injury. Anemia. Hypernatremia. Metabolic acidosis/lactic acidosis. Leukocytosis History of hypertension. History of diabetes. History of Alzheimer dementia. - continue full MVS for now -secondary stroke prophylaxis, get Neurology consult -Antiseizure medications...Keprra 500mg bid - continue bronchodilators with pulmonary hygiene per RT - continue to wean FiO2 for sats > 90% - addressing VAP bundle daily - strict I's & O's re: DIANNA and will leave shrestha catheter in place for now, especially with worsening renal function - Once hemodynamically normal and off vasopressor support, initiate volume restrictive strategies - trend CRP and lactate prn - continue enteral nutrition as tolerated - continue mobility protocol for pressure ulcer prophylaxis - continue GI & VTE prophylaxis - continue antibiotics deescalate an adjust based on culture results and MICAELA - Antibiotics per ID - contact precautions - 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 Also discussed the need for trachesotomy and possibly LTACH. He is agreeable but had questions about his father's ability to tolerate anesthesia, which were answered. The high probability of a clinically significant, sudden or life threatening deterioration of the [cardiac, neurology, respiratory and GI] system(s) required my full and direct attention, intervention and personal management. The aggregate critical care time was [35] minutes without overlap. Time includes spent on; [x] Data Review and interpretation [x] Patient assessment and monitoring of vital signs [x] Documentation [x] Medication orders and management Subjective Date of service: 03/07/18 Principal diagnosis: Acute Hypoxemic Resp Failure; Severe Sepsis; Aspiration Pneumonai (HCAP) Interval history: Seen and examined. Overnight events reviewed. Vitals, labs, medications, chart and imaging reviewed. No fevers, no emesis, no acute episodes of desaturations or hemodynamic instability overnigth Continues to remain critically ill on full ventilatory and on going vasopressor support. Discussed with RT and RN at the bedside Objective Vital Signs - 12hr 03/06/18 03/06/18 03/06/18 20:15 20:30 20:45 Temperature Pulse Rate 118 H 117 H 118 H Pulse Rate [ From Monitor] Respiratory 29 H 27 H 27 H Rate Blood Pressure 103/60 103/56 108/57 O2 Sat by Pulse Oximetry 03/06/18 03/06/18 03/06/18 21:00 21:13 21:15 Temperature Pulse Rate 120 H 118 H 123 H Pulse Rate [ From Monitor] Respiratory 18 24 Rate Blood Pressure 108/57 115/68 110/74 O2 Sat by Pulse 100 Oximetry 03/06/18 03/06/18 03/06/18 21:30 21:45 22:00 Temperature Pulse Rate 118 H 116 H 118 H Pulse Rate [ From Monitor] Respiratory 19 34 H 35 H Rate Blood Pressure 98/52 102/58 102/56 O2 Sat by Pulse Oximetry 03/06/18 03/06/18 03/06/18 22:15 22:30 22:45 Temperature Pulse Rate 118 H 116 H 115 H Pulse Rate [ From Monitor] Respiratory 35 H 28 H 28 H Rate Blood Pressure 99/59 100/54 108/56 O2 Sat by Pulse Oximetry 03/06/18 03/06/18 03/06/18 23:00 23:15 23:23 Temperature Pulse Rate 114 H 115 H 115 H Pulse Rate [ From Monitor] Respiratory 27 H 29 H Rate Blood Pressure 82/43 91/47 91/47 O2 Sat by Pulse 100 Oximetry 03/06/18 03/06/18 03/07/18 23:30 23:45 00:00 Temperature 98.6 F Pulse Rate 118 H 117 H 117 H Pulse Rate [ 119 H From Monitor] Respiratory 20 21 30 H Rate Blood Pressure 98/53 95/52 101/51 O2 Sat by Pulse 100 Oximetry 03/07/18 03/07/18 03/07/18 00:15 00:30 00:45 Temperature Pulse Rate 119 H 120 H 119 H Pulse Rate [ From Monitor] Respiratory 34 H 31 H 32 H Rate Blood Pressure 107/57 116/63 105/63 O2 Sat by Pulse Oximetry 03/07/18 03/07/18 03/07/18 01:00 01:15 01:30 Temperature Pulse Rate 125 H 131 H 121 H Pulse Rate [ From Monitor] Respiratory 37 H 34 H 30 H Rate Blood Pressure 109/71 110/71 114/66 O2 Sat by Pulse Oximetry 03/07/18 03/07/18 03/07/18 01:45 02:00 02:15 Temperature Pulse Rate 121 H 120 H 119 H Pulse Rate [ From Monitor] Respiratory 27 H 23 26 H Rate Blood Pressure 102/58 89/53 98/53 O2 Sat by Pulse Oximetry 03/07/18 03/07/18 03/07/18 02:30 02:45 03:00 Temperature Pulse Rate 116 H 115 H 115 H Pulse Rate [ From Monitor] Respiratory 25 H 26 H 25 H Rate Blood Pressure 106/56 99/60 101/60 O2 Sat by Pulse Oximetry 03/07/18 03:55 Temperature Pulse Rate 115 H Pulse Rate [ From Monitor] Respiratory Rate Blood Pressure 103/68 O2 Sat by Pulse 98 Oximetry Constitutional: appears uncomfortable, other (elderly looking AAM, normocephalic and atraumativ on MVS with increased respiratory effort) Eyes: non-icteric ENT: oropharynx moist, other (ETT 24 cm TERESA) Neck: supple, no lymphadenopathy, no JVD, other (no thyromegaly) Effort: mildly labored Ascultation: Bilateral: diminished breath sounds, rales Percussion: Bilateral: not dull Cardiovascular: regular rate and rhythm, other (No R/M, S1,S2) Gastrointestinal: normoactive bowel sounds, soft, non-tender, non-distended, other (+ PEG; No HSM) Integumentary: other (poor turgor) Extremities: no cyanosis, no edema, pulses normal, no ischemia or petechiae Neurologic: pupils equal and round, unable to assess Psychiatric: other (unable to assess re: encephalopathy) CBC and BMP: 03/10/18 20:02 03/11/18 14:25 ABG, PT/INR, D-dimer: ABG POC ABG pH 7.639 (7.35-7.45) H 03/06/18 21:16 POC ABG pCO2 25.3 (35-45) L 03/06/18 21:16 POC ABG pO2 82 (80-105) 03/06/18 21:16 POC ABG HCO3 27.2 03/06/18 21:16 POC ABG Total CO2 28 03/06/18 21:16 POC ABG O2 Sat 98 03/06/18 21:16 PT/INR, D-dimer PT 21.5 Sec. (12.2-14.9) H 02/26/18 20:50 INR 1.75 (0.87-1.13) H 02/26/18 20:50 Abnormal lab findings: Abnormal Labs 02/25/18 02/25/18 02/25/18 23:15 23:15 23:15 WBC 12.3 H RBC 3.56 L Hgb 10.2 L Hct 33.7 L MCV 95 H MCHC 30 L RDW 17.7 H Seg Neuts % (Manual) 35.0 L Lymphocytes % (Manual) 13.0 L Monocytes % (Manual) 8.0 H Nucleated RBC % Seg Neutrophils # Man Lymphocytes # (Manual) Monocytes # (Manual) 1.0 H PT 20.3 H INR 1.63 H POC ABG pH POC ABG pCO2 POC ABG pO2 Sodium 152 H Potassium Chloride 108.7 H Carbon Dioxide 18 L BUN 136 H Creatinine 5.2 H Glucose POC Glucose Lactic Acid Calcium 8.0 L Phosphorus Magnesium Total Bilirubin 4.50 H AST 83 H C-Reactive Protein Albumin 2.7 L Urine Creatinine Crossmatch 02/25/18 02/25/18 02/26/18 23:15 23:30 03:06 WBC RBC Hgb Hct MCV MCHC RDW Seg Neuts % (Manual) Lymphocytes % (Manual) Monocytes % (Manual) Nucleated RBC % Seg Neutrophils # Man Lymphocytes # (Manual) Monocytes # (Manual) PT INR POC ABG pH POC ABG pCO2 25.2 L POC ABG pO2 69 L Sodium Potassium Chloride Carbon Dioxide BUN Creatinine Glucose POC Glucose Lactic Acid 7.00 H* 9.70 H* Calcium Phosphorus Magnesium Total Bilirubin AST C-Reactive Protein Albumin Urine Creatinine Crossmatch 02/26/18 02/26/18 02/26/18 05:12 05:43 07:39 WBC 23.7 H RBC 3.27 L Hgb 9.3 L Hct 31.1 L MCV 95 H MCHC 30 L RDW 17.4 H Seg Neuts % (Manual) Lymphocytes % (Manual) 2.0 L Monocytes % (Manual) Nucleated RBC % 1.0 H Seg Neutrophils # Man 16.1 H Lymphocytes # (Manual) 0.5 L Monocytes # (Manual) 1.2 H PT INR POC ABG pH POC ABG pCO2 19.5 L POC ABG pO2 72 L Sodium Potassium Chloride Carbon Dioxide BUN Creatinine Glucose POC Glucose Lactic Acid 8.80 H* Calcium Phosphorus Magnesium Total Bilirubin AST C-Reactive Protein Albumin Urine Creatinine Crossmatch 02/26/18 02/26/18 02/26/18 07:39 12:06 13:08 WBC RBC Hgb Hct MCV MCHC RDW Seg Neuts % (Manual) Lymphocytes % (Manual) Monocytes % (Manual) Nucleated RBC % Seg Neutrophils # Man Lymphocytes # (Manual) Monocytes # (Manual) PT INR POC ABG pH POC ABG pCO2 27.8 L POC ABG pO2 168 H Sodium 155 H Potassium Chloride 114.2 H Carbon Dioxide 14 L BUN 120 H Creatinine 4.6 H Glucose 108 H POC Glucose Lactic Acid Calcium 7.7 L Phosphorus Magnesium Total Bilirubin 4.50 H AST 105 H C-Reactive Protein Albumin 2.4 L Urine Creatinine 38.6 H Crossmatch 02/26/18 02/26/18 02/26/18 18:41 20:50 20:50 WBC RBC Hgb Hct MCV MCHC RDW Seg Neuts % (Manual) Lymphocytes % (Manual) Monocytes % (Manual) Nucleated RBC % Seg Neutrophils # Man Lymphocytes # (Manual) Monocytes # (Manual) PT 21.5 H INR 1.75 H POC ABG pH POC ABG pCO2 POC ABG pO2 Sodium Potassium Chloride Carbon Dioxide BUN Creatinine Glucose POC Glucose 135 H Lactic Acid Calcium Phosphorus Magnesium Total Bilirubin AST C-Reactive Protein 33.90 H Albumin Urine Creatinine Crossmatch 02/27/18 02/27/18 02/27/18 03:39 04:56 04:56 WBC 20.1 H RBC 2.92 L Hgb 8.4 L Hct 27.5 L MCV MCHC 31 L RDW 17.1 H Seg Neuts % (Manual) 92.0 H Lymphocytes % (Manual) 3.0 L Monocytes % (Manual) Nucleated RBC % Seg Neutrophils # Man 18.5 H Lymphocytes # (Manual) 0.6 L Monocytes # (Manual) PT INR POC ABG pH 7.453 H POC ABG pCO2 27.2 L POC ABG pO2 Sodium 149 H Potassium Chloride 113.1 H Carbon Dioxide 18 L BUN 103 H Creatinine 3.8 H Glucose 120 H POC Glucose Lactic Acid Calcium 7.8 L Phosphorus Magnesium Total Bilirubin AST C-Reactive Protein Albumin Urine Creatinine Crossmatch 02/27/18 02/27/18 02/27/18 12:37 12:45 17:51 WBC RBC Hgb Hct MCV MCHC RDW Seg Neuts % (Manual) Lymphocytes % (Manual) Monocytes % (Manual) Nucleated RBC % Seg Neutrophils # Man Lymphocytes # (Manual) Monocytes # (Manual) PT INR POC ABG pH POC ABG pCO2 POC ABG pO2 Sodium Potassium Chloride Carbon Dioxide BUN Creatinine Glucose POC Glucose 169 H 133 H Lactic Acid 2.90 H* Calcium Phosphorus Magnesium Total Bilirubin AST C-Reactive Protein Albumin Urine Creatinine Crossmatch 02/28/18 02/28/18 02/28/18 00:23 05:00 05:02 WBC RBC Hgb Hct MCV MCHC RDW Seg Neuts % (Manual) Lymphocytes % (Manual) Monocytes % (Manual) Nucleated RBC % Seg Neutrophils # Man Lymphocytes # (Manual) Monocytes # (Manual) PT INR POC ABG pH POC ABG pCO2 POC ABG pO2 Sodium Potassium Chloride Carbon Dioxide BUN Creatinine Glucose POC Glucose 161 H 116 H Lactic Acid 2.70 H* Calcium Phosphorus Magnesium Total Bilirubin AST C-Reactive Protein Albumin Urine Creatinine Crossmatch 02/28/18 02/28/18 02/28/18 05:28 07:04 09:00 WBC 22.3 H RBC 2.63 L Hgb 7.6 L Hct 24.1 L MCV MCHC 31 L RDW 17.4 H Seg Neuts % (Manual) 84.0 H Lymphocytes % (Manual) 8.0 L Monocytes % (Manual) Nucleated RBC % Seg Neutrophils # Man 18.7 H Lymphocytes # (Manual) Monocytes # (Manual) 1.1 H PT INR POC ABG pH 7.477 H POC ABG pCO2 24.6 L POC ABG pO2 57 L Sodium Potassium Chloride Carbon Dioxide BUN Creatinine Glucose POC Glucose Lactic Acid 3.10 H* Calcium Phosphorus Magnesium Total Bilirubin AST C-Reactive Protein Albumin Urine Creatinine Crossmatch 02/28/18 02/28/18 02/28/18 09:00 11:36 17:10 WBC RBC Hgb Hct MCV MCHC RDW Seg Neuts % (Manual) Lymphocytes % (Manual) Monocytes % (Manual) Nucleated RBC % Seg Neutrophils # Man Lymphocytes # (Manual) Monocytes # (Manual) PT INR POC ABG pH POC ABG pCO2 POC ABG pO2 Sodium Potassium 3.3 L 3.5 L Chloride Carbon Dioxide 21 L 19 L BUN 76 H 69 H Creatinine 2.8 H 2.5 H Glucose 104 H 124 H POC Glucose 107 H Lactic Acid Calcium 7.6 L 7.3 L Phosphorus 1.50 L Magnesium Total Bilirubin AST C-Reactive Protein Albumin Urine Creatinine Crossmatch 02/28/18 02/28/18 03/01/18 17:36 23:40 06:25 WBC RBC Hgb Hct MCV MCHC RDW Seg Neuts % (Manual) Lymphocytes % (Manual) Monocytes % (Manual) Nucleated RBC % Seg Neutrophils # Man Lymphocytes # (Manual) Monocytes # (Manual) PT INR POC ABG pH 7.542 H POC ABG pCO2 23.3 L POC ABG pO2 62 L Sodium Potassium Chloride Carbon Dioxide BUN Creatinine Glucose POC Glucose 151 H 111 H Lactic Acid Calcium Phosphorus Magnesium Total Bilirubin AST C-Reactive Protein Albumin Urine Creatinine Crossmatch 03/01/18 03/01/18 03/02/18 10:00 12:12 05:21 WBC RBC Hgb Hct MCV MCHC RDW Seg Neuts % (Manual) Lymphocytes % (Manual) Monocytes % (Manual) Nucleated RBC % Seg Neutrophils # Man Lymphocytes # (Manual) Monocytes # (Manual) PT INR POC ABG pH 7.473 H POC ABG pCO2 21.5 L POC ABG pO2 79 L Sodium Potassium 3.5 L Chloride Carbon Dioxide 18 L BUN 66 H Creatinine 2.8 H Glucose 103 H POC Glucose 176 H Lactic Acid Calcium 7.5 L Phosphorus Magnesium Total Bilirubin AST C-Reactive Protein Albumin Urine Creatinine Crossmatch 03/02/18 03/02/18 03/02/18 06:00 06:00 11:47 WBC 18.2 H RBC 2.43 L Hgb 7.2 L Hct 22.6 L MCV MCHC RDW 17.6 H Seg Neuts % (Manual) Lymphocytes % (Manual) Monocytes % (Manual) Nucleated RBC % Seg Neutrophils # Man Lymphocytes # (Manual) Monocytes # (Manual) PT INR POC ABG pH POC ABG pCO2 POC ABG pO2 Sodium Potassium Chloride Carbon Dioxide 17 L BUN 68 H Creatinine 3.1 H Glucose 106 H POC Glucose 136 H Lactic Acid Calcium 7.2 L Phosphorus Magnesium Total Bilirubin AST C-Reactive Protein Albumin Urine Creatinine Crossmatch 03/02/18 03/03/18 03/03/18 17:35 00:54 03:38 WBC RBC Hgb Hct MCV MCHC RDW Seg Neuts % (Manual) Lymphocytes % (Manual) Monocytes % (Manual) Nucleated RBC % Seg Neutrophils # Man Lymphocytes # (Manual) Monocytes # (Manual) PT INR POC ABG pH 7.451 H POC ABG pCO2 20.5 L POC ABG pO2 Sodium Potassium Chloride Carbon Dioxide BUN Creatinine Glucose POC Glucose 109 H 131 H Lactic Acid Calcium Phosphorus Magnesium Total Bilirubin AST C-Reactive Protein Albumin Urine Creatinine Crossmatch 03/03/18 03/03/18 03/03/18 06:15 06:15 08:37 WBC 21.1 H RBC 2.20 L Hgb 6.3 L Hct 20.8 L MCV 95 H MCHC 30 L RDW 17.8 H Seg Neuts % (Manual) 71.0 H Lymphocytes % (Manual) 8.0 L Monocytes % (Manual) Nucleated RBC % Seg Neutrophils # Man 15.0 H Lymphocytes # (Manual) Monocytes # (Manual) 1.3 H PT INR POC ABG pH POC ABG pCO2 POC ABG pO2 Sodium 130 L D Potassium Chloride 96.4 L Carbon Dioxide 14 L BUN 69 H Creatinine 3.1 H Glucose POC Glucose Lactic Acid Calcium 7.0 L Phosphorus Magnesium Total Bilirubin AST C-Reactive Protein Albumin Urine Creatinine Crossmatch See Detail 03/03/18 03/03/18 03/03/18 09:38 12:13 12:37 WBC RBC Hgb Hct MCV MCHC RDW Seg Neuts % (Manual) Lymphocytes % (Manual) Monocytes % (Manual) Nucleated RBC % Seg Neutrophils # Man Lymphocytes # (Manual) Monocytes # (Manual) PT INR POC ABG pH POC ABG pCO2 23.8 L POC ABG pO2 156 H Sodium Potassium Chloride Carbon Dioxide BUN Creatinine Glucose POC Glucose 119 H Lactic Acid Calcium Phosphorus Magnesium 1.40 L Total Bilirubin AST C-Reactive Protein Albumin Urine Creatinine Crossmatch 03/03/18 03/04/18 03/04/18 18:05 00:59 04:27 WBC RBC Hgb Hct MCV MCHC RDW Seg Neuts % (Manual) Lymphocytes % (Manual) Monocytes % (Manual) Nucleated RBC % Seg Neutrophils # Man Lymphocytes # (Manual) Monocytes # (Manual) PT INR POC ABG pH 7.486 H POC ABG pCO2 24.8 L POC ABG pO2 Sodium Potassium Chloride Carbon Dioxide BUN Creatinine Glucose POC Glucose 154 H 159 H Lactic Acid Calcium Phosphorus Magnesium Total Bilirubin AST C-Reactive Protein Albumin Urine Creatinine Crossmatch 03/04/18 03/04/18 03/04/18 05:30 05:30 05:38 WBC 22.6 H RBC 2.46 L Hgb 7.1 L Hct 21.7 L MCV MCHC RDW 17.2 H Seg Neuts % (Manual) 84.0 H Lymphocytes % (Manual) 5.0 L Monocytes % (Manual) Nucleated RBC % Seg Neutrophils # Man 19.0 H Lymphocytes # (Manual) 1.1 L Monocytes # (Manual) PT INR POC ABG pH POC ABG pCO2 POC ABG pO2 Sodium 135 L Potassium Chloride 96.2 L Carbon Dioxide 19 L BUN 69 H Creatinine 3.1 H Glucose 121 H POC Glucose 134 H Lactic Acid Calcium 7.1 L Phosphorus Magnesium Total Bilirubin AST C-Reactive Protein 19.80 H Albumin Urine Creatinine Crossmatch 03/04/18 03/04/18 03/05/18 11:47 17:53 00:22 WBC RBC Hgb Hct MCV MCHC RDW Seg Neuts % (Manual) Lymphocytes % (Manual) Monocytes % (Manual) Nucleated RBC % Seg Neutrophils # Man Lymphocytes # (Manual) Monocytes # (Manual) PT INR POC ABG pH POC ABG pCO2 POC ABG pO2 Sodium Potassium Chloride Carbon Dioxide BUN Creatinine Glucose POC Glucose 109 H 113 H 113 H Lactic Acid Calcium Phosphorus Magnesium Total Bilirubin AST C-Reactive Protein Albumin Urine Creatinine Crossmatch 03/05/18 03/05/18 03/05/18 05:15 05:15 05:36 WBC 24.3 H RBC 2.29 L Hgb 6.8 L Hct 20.3 L MCV MCHC RDW 16.7 H Seg Neuts % (Manual) 88.0 H Lymphocytes % (Manual) 3.0 L Monocytes % (Manual) Nucleated RBC % Seg Neutrophils # Man 21.4 H Lymphocytes # (Manual) 0.7 L Monocytes # (Manual) PT INR POC ABG pH 7.519 H POC ABG pCO2 27.0 L POC ABG pO2 68 L Sodium 132 L Potassium Chloride 91.2 L Carbon Dioxide BUN 69 H Creatinine 3.3 H Glucose POC Glucose Lactic Acid Calcium 6.9 L Phosphorus Magnesium Total Bilirubin AST C-Reactive Protein Albumin Urine Creatinine Crossmatch 03/05/18 03/05/18 03/06/18 11:51 16:00 00:00 WBC RBC Hgb Hct MCV MCHC RDW Seg Neuts % (Manual) Lymphocytes % (Manual) Monocytes % (Manual) Nucleated RBC % Seg Neutrophils # Man Lymphocytes # (Manual) Monocytes # (Manual) PT INR POC ABG pH POC ABG pCO2 POC ABG pO2 Sodium Potassium Chloride 92.9 L Carbon Dioxide BUN 67 H Creatinine 3.4 H Glucose POC Glucose 118 H 131 H Lactic Acid Calcium 7.2 L Phosphorus Magnesium Total Bilirubin AST C-Reactive Protein Albumin Urine Creatinine Crossmatch 03/06/18 03/06/18 03/06/18 01:27 04:44 04:54 WBC 24.5 H RBC 2.90 L Hgb 8.5 L Hct 25.8 L MCV MCHC RDW 16.3 H Seg Neuts % (Manual) 96.0 H Lymphocytes % (Manual) 1.5 L Monocytes % (Manual) Nucleated RBC % 1.0 H Seg Neutrophils # Man 23.5 H Lymphocytes # (Manual) 0.4 L Monocytes # (Manual) PT INR POC ABG pH 7.551 H POC ABG pCO2 29.5 L POC ABG pO2 57 L Sodium Potassium Chloride Carbon Dioxide BUN Creatinine Glucose POC Glucose 127 H Lactic Acid Calcium Phosphorus Magnesium Total Bilirubin AST C-Reactive Protein Albumin Urine Creatinine Crossmatch 03/06/18 03/06/18 03/06/18 05:54 12:08 21:16 WBC RBC Hgb Hct MCV MCHC RDW Seg Neuts % (Manual) Lymphocytes % (Manual) Monocytes % (Manual) Nucleated RBC % Seg Neutrophils # Man Lymphocytes # (Manual) Monocytes # (Manual) PT INR POC ABG pH 7.639 H POC ABG pCO2 25.3 L POC ABG pO2 Sodium Potassium Chloride Carbon Dioxide BUN Creatinine Glucose POC Glucose 108 H 123 H Lactic Acid Calcium Phosphorus Magnesium Total Bilirubin AST C-Reactive Protein Albumin Urine Creatinine Crossmatch 03/07/18 03/07/18 03/07/18 05:00 05:00 06:32 WBC 17.5 H RBC 2.41 L Hgb 7.3 L Hct 21.5 L MCV MCHC RDW 16.6 H Seg Neuts % (Manual) Lymphocytes % (Manual) Monocytes % (Manual) Nucleated RBC % Seg Neutrophils # Man Lymphocytes # (Manual) Monocytes # (Manual) PT INR POC ABG pH POC ABG pCO2 POC ABG pO2 Sodium Potassium Chloride 90.6 L Carbon Dioxide BUN 65 H Creatinine 3.4 H Glucose POC Glucose 121 H Lactic Acid Calcium 7.3 L Phosphorus Magnesium Total Bilirubin AST C-Reactive Protein Albumin Urine Creatinine Crossmatch Allied health notes reviewed: nursing
[2018-03-07] MEDS: DUONEB *Not for PRN Use IH SCH ×3 (08:26→19:09)
[2018-03-07] MEDS ORDERED: LACTATED RINGERS 500 ML IV SCH (09:00)
--- NOTE | 2018-03-07 09:18 | Progress Note ---
Assessment and Plan Impression: * Nonoliguric acute kidney injury secondary to prerenal azotemia/ATN due to dehydration vs sepsis --Baseline SCr 1.6-1.8mg/dL * Acute hypoxic respiratory failure * Sepsis * Asp PNA * HCAP --sputum w/ MRSA, group A beta hemolytic strep * Hypernatremia secondary to dehydration - resolved * Metabolic acidosis secondary to lactic acidosis * CVA with left hemiplegia Plan: * Continue IVF--co2 is better * follow up crcl * if refractory to medical treatment, may need general administrator, no indication today * Keep MAP>65 * sz likely due to embolic CVA * prn transfusion of pRBC * Replete lytes prn * Vent management per CCM * Broad spectrum abx * Dose medications for renal function * Avoid potential nephrotoxins Subjective Date of service: 03/07/18 Principal diagnosis: Acute Hypoxemic Resp Failure; Severe Sepsis; Aspiration Pneumonai (HCAP) Interval history: resting well in bed today Objective - Exam Narrative Exam: General appearance: intubated EENT: ATNC, other (ETT in place) Respiratory: Present: Other (coarse breath sounds) Cardiology: tachycardia, S1S2 Gastrointestinal: normal, no distended Integumentary: no rash, warm and dry Musculoskeletal: other (no edema) - Vital Signs Vital signs: Vital Signs - 12hr 03/06/18 03/06/18 03/06/18 21:30 21:45 22:00 Temperature Pulse Rate 118 H 116 H 118 H Pulse Rate [ Anterior Bilateral Throughout] Pulse Rate [ From Monitor] Respiratory 19 34 H 35 H Rate Respiratory Rate [Anterior Bilateral Throughout] Blood Pressure 98/52 102/58 102/56 O2 Sat by Pulse Oximetry 03/06/18 03/06/18 03/06/18 22:15 22:30 22:45 Temperature Pulse Rate 118 H 116 H 115 H Pulse Rate [ Anterior Bilateral Throughout] Pulse Rate [ From Monitor] Respiratory 35 H 28 H 28 H Rate Respiratory Rate [Anterior Bilateral Throughout] Blood Pressure 99/59 100/54 108/56 O2 Sat by Pulse Oximetry 03/06/18 03/06/18 03/06/18 23:00 23:15 23:23 Temperature Pulse Rate 114 H 115 H 115 H Pulse Rate [ Anterior Bilateral Throughout] Pulse Rate [ From Monitor] Respiratory 27 H 29 H Rate Respiratory Rate [Anterior Bilateral Throughout] Blood Pressure 82/43 91/47 91/47 O2 Sat by Pulse 100 Oximetry 03/06/18 03/06/18 03/07/18 23:30 23:45 00:00 Temperature 98.6 F Pulse Rate 118 H 117 H 117 H Pulse Rate [ Anterior Bilateral Throughout] Pulse Rate [ 119 H From Monitor] Respiratory 20 21 30 H Rate Respiratory Rate [Anterior Bilateral Throughout] Blood Pressure 98/53 95/52 101/51 O2 Sat by Pulse 100 Oximetry 03/07/18 03/07/18 03/07/18 00:15 00:30 00:45 Temperature Pulse Rate 119 H 120 H 119 H Pulse Rate [ Anterior Bilateral Throughout] Pulse Rate [ From Monitor] Respiratory 34 H 31 H 32 H Rate Respiratory Rate [Anterior Bilateral Throughout] Blood Pressure 107/57 116/63 105/63 O2 Sat by Pulse Oximetry 03/07/18 03/07/18 03/07/18 01:00 01:15 01:30 Temperature Pulse Rate 125 H 131 H 121 H Pulse Rate [ Anterior Bilateral Throughout] Pulse Rate [ From Monitor] Respiratory 37 H 34 H 30 H Rate Respiratory Rate [Anterior Bilateral Throughout] Blood Pressure 109/71 110/71 114/66 O2 Sat by Pulse Oximetry 03/07/18 03/07/18 03/07/18 01:45 02:00 02:15 Temperature Pulse Rate 121 H 120 H 119 H Pulse Rate [ Anterior Bilateral Throughout] Pulse Rate [ From Monitor] Respiratory 27 H 23 26 H Rate Respiratory Rate [Anterior Bilateral Throughout] Blood Pressure 102/58 89/53 98/53 O2 Sat by Pulse Oximetry 03/07/18 03/07/18 03/07/18 02:30 02:45 03:00 Temperature Pulse Rate 116 H 115 H 115 H Pulse Rate [ Anterior Bilateral Throughout] Pulse Rate [ From Monitor] Respiratory 25 H 26 H 25 H Rate Respiratory Rate [Anterior Bilateral Throughout] Blood Pressure 106/56 99/60 101/60 O2 Sat by Pulse Oximetry 03/07/18 03/07/18 03/07/18 03:15 03:30 03:45 Temperature Pulse Rate 119 H 116 H 117 H Pulse Rate [ Anterior Bilateral Throughout] Pulse Rate [ From Monitor] Respiratory 33 H 27 H 17 Rate Respiratory Rate [Anterior Bilateral Throughout] Blood Pressure 109/70 113/66 103/68 O2 Sat by Pulse Oximetry 06/26/18 06/26/18 06/26/18 03:55 04:00 04:15 Temperature Pulse Rate 115 H 114 H 116 H Pulse Rate [ Anterior Bilateral Throughout] Pulse Rate [ From Monitor] Respiratory 21 25 H Rate Respiratory Rate [Anterior Bilateral Throughout] Blood Pressure 103/68 101/54 102/56 O2 Sat by Pulse 98 Oximetry 03/07/18 03/07/18 03/07/18 04:30 04:45 05:00 Temperature Pulse Rate 115 H 116 H 117 H Pulse Rate [ Anterior Bilateral Throughout] Pulse Rate [ From Monitor] Respiratory 22 25 H 24 Rate Respiratory Rate [Anterior Bilateral Throughout] Blood Pressure 98/56 108/48 114/54 O2 Sat by Pulse Oximetry 03/07/18 03/07/18 03/07/18 05:15 05:30 05:45 Temperature Pulse Rate 114 H 116 H 122 H Pulse Rate [ Anterior Bilateral Throughout] Pulse Rate [ From Monitor] Respiratory 23 25 H 29 H Rate Respiratory Rate [Anterior Bilateral Throughout] Blood Pressure 110/64 122/74 125/80 O2 Sat by Pulse Oximetry 03/07/18 03/07/18 03/07/18 06:00 06:15 06:30 Temperature Pulse Rate 124 H 122 H 121 H Pulse Rate [ Anterior Bilateral Throughout] Pulse Rate [ From Monitor] Respiratory 30 H 29 H 31 H Rate Respiratory Rate [Anterior Bilateral Throughout] Blood Pressure 125/80 133/69 130/70 O2 Sat by Pulse Oximetry 03/07/18 03/07/18 03/07/18 06:45 07:00 07:15 Temperature Pulse Rate 117 H 117 H 114 H Pulse Rate [ Anterior Bilateral Throughout] Pulse Rate [ From Monitor] Respiratory 28 H 31 H 27 H Rate Respiratory Rate [Anterior Bilateral Throughout] Blood Pressure 114/61 101/58 112/61 O2 Sat by Pulse Oximetry 03/07/18 03/07/18 03/07/18 07:30 07:45 08:00 Temperature 99.0 F Pulse Rate 116 H 116 H 115 H Pulse Rate [ Anterior Bilateral Throughout] Pulse Rate [ 115 H From Monitor] Respiratory 22 23 19 Rate Respiratory Rate [Anterior Bilateral Throughout] Blood Pressure 110/69 113/68 105/69 O2 Sat by Pulse Oximetry 03/07/18 03/07/18 03/07/18 08:15 08:23 08:26 Temperature Pulse Rate 115 H 114 H Pulse Rate [ 113 H Anterior Bilateral Throughout] Pulse Rate [ From Monitor] Respiratory 26 H 23 Rate Respiratory 19 Rate [Anterior Bilateral Throughout] Blood Pressure 107/66 107/66 O2 Sat by Pulse 99 Oximetry 03/07/18 09:03 Temperature Pulse Rate Pulse Rate [ 115 H Anterior Bilateral Throughout] Pulse Rate [ From Monitor] Respiratory Rate Respiratory 20 Rate [Anterior Bilateral Throughout] Blood Pressure O2 Sat by Pulse Oximetry - Lab 03/07/18 05:00 03/07/18 05:00 Most recent lab results Calcium 7.3 mg/dL (8.4-10.2) L 03/07/18 05:00 Phosphorus 1.50 mg/dL (2.5-4.5) L 02/28/18 17:10 Magnesium 1.40 mg/dL (1.7-2.3) L 03/03/18 12:37 Urine Creatinine 38.6 mg/dL (0.1-20.0) H 02/26/18 13:08 Urine Sodium 67 mmol/L 02/26/18 13:08
[2018-03-07] MEDS: ZYVOX PO SCH (09:31)
[2018-03-07] MEDS: BABY ASPIRIN PO SCH (09:32)
[2018-03-07] MEDS: ALBURX 25% (ALBUMIN) IV SCH ×2 (09:32→21:34)
[2018-03-07] MEDS: PEPCID PO SCH (09:33)
[2018-03-07] MEDS: HEPARIN SUB-Q SCH (09:33)
[2018-03-07 09:38] LABS: Anisocytosis 1+; Band Neutrophils # (Manual) 0.2 K/mm3; Basophils % (Manual) 0 % (0.0-1.8); Hypochromasia 1+; Monocytes % (Manual) 0 % (0.0-7.3); Total Cells Counted 100
[2018-03-07 09:39] LABS: Platelet Estimate Cons
[2018-03-07] MEDS: LEVOPHED DRIP 4 MG/NS 250 ML 4 MG/250 ML BAG IV SCH (10:50)
--- NOTE | 2018-03-07 10:50 | Progress Note ---
Assessment and Plan Assessment and plan: 72-year-old male with history of cerebrovascular accident hemiplegia. Alzheimer's and nonverbal from [facility] sent for altered mental state. Since yesterday and high fever and increasing shortness of breath and respiratory distress. Patient's temperature was 103.2F in the initial evaluation in the emergency room. Patient was also severely tachypneic with respiratory rate of 40. Sudden onset. No exacerbating or relieving factors. Patient is a resident of intermediate facility. Patient continued in the ICU started on broad septurm abx and later de-escalated to Zyvox for MRSA and had rapid response was called following worsening symptoms with chest compression ensuing. CT brain shows New CVA/SUBACUTE CVA, with again noted with mengioma, Neurology consulted and EEG, with extensive family conversation. Nephrology was also on board with notation of Nonoliguric acute kidney injury secondary to prerenal azotemia/ATN due to dehydration vs sepsis and Metabolic acidosis secondary to lactic acidosis among others but with no indication for BRAND MARKETING COORDINATOR at the time. ID/online marketing specialist following 03/03: Went into cardiopulmonary arrest. Resuscitated according to ACLS protocol and commenced on IV Levophed for hypotension 03/05: Pt had recurrent seizure over the night and CT head showed right MCA acute /subacute stroke and calcified meningioma in the left frontal area Acute right MCA stroke * Neurology pending consulted and input noted * EEG, WITH anti-seizure meds Septic Shock * follow cultures * Continue Zyvox and Pen G and Clinda * continue isolation per ID * on pressors Anemia * Transfuse as needed Cardiopulmonary arrest * Resuscitated according to ACLS protocol * Commenced on Levophed drip for hypotension Acute Hypoxemic Respiratory Failure * Continues on mechanical ventilation >96HRS * Pulmonary following. * Aspiration precautions * Plan for Trach and PEg * MRSA on sputum * Continue nebs, now off solumedrol Aspiration Pneumonia- Multilobar * Continue abx as noted above * Cultures showing MRSA, GAS * PCN AND CLINDAMYCIN ADDED * CONTACT ISOATION Acute ON CHRONIC Encephalopathy * patient with alzhimers disease Acute Kidney injury * Likely secondary to ATN * improved Sacral Pressure ulcer * wound care consult Hypernatermia * Resolving Diabetes. * Continue sliding scale coverage History of Alzheimer dementia. BPH * Continue Finasterid Hyperlipidemia * continue statin CVA PER HX-WITH LEFT SIDED HEMIPLEGIA * Complete immobility due to frailty per documentation ANEMIA * Of chronic disease, monitor closely s/p 3 units PRBC DVT/GI prophy Discussed with son. Poor prognosis Plan for LTAC eval The high probability of a clinically significant, sudden or life threatening deterioration of the [PULMONARY] system(s) required my full and direct attention , intervention and personal management. The aggregate critical care time was [45 ] minutes. This time is in addition to time spent performing reported procedures but includes the following: [X] Data Review and interpretation [X] Patient assessment and monitoring of vital signs [X] Documentation [X] Medication orders and management History Interval history: Patient seen and examined, remains intubated, opens eyes to verbal stimuli but not following any commands. Still with low bp AND ON LEVOPHED Hospitalist Physical - Physical exam Narrative exam: VITAL SIGNS: Reviewed. GENERAL: The patient appeared Chronically ill, on mechanical ventilation. Vital signs as documented. HEAD: No signs of head trauma. Marked temporal wasting EYES: Pupils are equal. Extraocular motions intact. EARS: Hearing grossly intact. MOUTH: ETT NECK: No adenopathy, no JVD. CHEST: Chest with crackles breath sounds bilaterally bases. CARDIAC: Regular rate and rhythm. S1 and S2, without murmurs, gallops, or rubs. VASCULAR: No Edema. Peripheral pulses normal and equal in all extremities. ABDOMEN: Soft, without detectable tenderness. No sign of distention. No rebound or guarding, and no masses palpated. Bowel Sounds normal. MUSCULOSKELETAL: Extremities without clubbing, cyanosis or edema. NEUROLOGIC EXAM: Awake, but lethargic. Unable to examine. Left sided weakness. focal deficits, severely altered sensorium and nearly unresponsive PSYCHIATRIC: unable to assess. SKIN: Pressure Ulcer - Constitutional Vitals: Temp Pulse Resp BP Pulse Ox 99.0 F 115 H 20 107/66 99 03/07/18 08:00 03/07/18 09:03 03/07/18 09:03 03/07/18 08:23 03/07/18 08:23 General appearance: Present: no acute distress, well-nourished Results - Labs CBC & Chem 7: 03/08/18 04:30 03/07/18 05:00 Labs: Laboratory Last Values WBC 17.5 K/mm3 (4.5-11.0) H 03/07/18 05:00 RBC 2.41 M/mm3 (3.65-5.03) L 03/07/18 05:00 Hgb 7.3 gm/dl (11.8-15.2) L 03/07/18 05:00 Hct 21.5 % (35.5-45.6) L 03/07/18 05:00 MCV 89 fl (84-94) 03/07/18 05:00 MCH 30 pg (28-32) 03/07/18 05:00 MCHC 34 % (32-34) 03/07/18 05:00 RDW 16.6 % (13.2-15.2) H 03/07/18 05:00 Plt Count 190 K/mm3 (140-440) 03/07/18 05:00 Add Manual Diff Complete 03/07/18 05:00 Total Counted 100 03/07/18 05:00 Seg Neutrophils % Tobacco Drying Machine Operator 03/07/18 05:00 Seg Neuts % (Manual) 97.0 % (40.0-70.0) H 03/07/18 05:00 Band Neutrophils % 1.0 % 03/07/18 05:00 Lymphocytes % (Manual) 1.0 % (13.4-35.0) L 03/07/18 05:00 Reactive Lymphs % (Man) 0 % 03/07/18 05:00 Monocytes % (Manual) 0 % (0.0-7.3) 03/07/18 05:00 Eosinophils % (Manual) 1.0 % (0.0-4.3) 03/07/18 05:00 Basophils % (Manual) 0 % (0.0-1.8) 03/07/18 05:00 Metamyelocytes % 0 % 03/07/18 05:00 Myelocytes % 0 % 03/07/18 05:00 Promyelocytes % 0 % 03/07/18 05:00 Blast Cells % 0 % 03/07/18 05:00 Nucleated RBC % Not Reportable 03/07/18 05:00 Seg Neutrophils # Man 17.0 K/mm3 (1.8-7.7) H 03/07/18 05:00 Band Neutrophils # 0.2 K/mm3 03/07/18 05:00 Lymphocytes # (Manual) 0.2 K/mm3 (1.2-5.4) L 03/07/18 05:00 Abs React Lymphs (Man) 0.0 K/mm3 03/07/18 05:00 Monocytes # (Manual) 0.0 K/mm3 (0.0-0.8) 03/07/18 05:00 Eosinophils # (Manual) 0.2 K/mm3 (0.0-0.4) 03/07/18 05:00 Basophils # (Manual) 0.0 K/mm3 (0.0-0.1) 03/07/18 05:00 Metamyelocytes # 0.0 K/mm3 03/07/18 05:00 Myelocytes # 0.0 K/mm3 03/07/18 05:00 Promyelocytes # 0.0 K/mm3 03/07/18 05:00 Blast Cells # 0.0 K/mm3 03/07/18 05:00 WBC Morphology Not Reportable 03/07/18 05:00 Hypersegmented Neuts Not Reportable 03/07/18 05:00 Hyposegmented Neuts Not Reportable 03/07/18 05:00 Hypogranular Neuts Not Reportable 03/07/18 05:00 Smudge Cells Not Reportable 03/07/18 05:00 Toxic Granulation Not Reportable 03/07/18 05:00 Toxic Vacuolation Not Reportable 03/07/18 05:00 Dohle Bodies Not Reportable 03/07/18 05:00 Pelger-Huet Anomaly Not Reportable 03/07/18 05:00 Erwin Rods Not Reportable 03/07/18 05:00 Platelet Estimate Cons 03/07/18 05:00 Clumped Platelets Not Reportable 03/07/18 05:00 Plt Clumps, EDTA Not Reportable 03/07/18 05:00 Large Platelets Not Reportable 03/07/18 05:00 Giant Platelets Not Reportable 03/07/18 05:00 Platelet Satelliting Not Reportable 03/07/18 05:00 Plt Morphology Comment Not Reportable 03/07/18 05:00 RBC Morphology Not Reportable 03/07/18 05:00 Dimorphic RBCs Not Reportable 03/07/18 05:00 Polychromasia Not Reportable 03/07/18 05:00 Hypochromasia 1+ 03/07/18 05:00 Poikilocytosis Not Reportable 03/07/18 05:00 Anisocytosis 1+ 03/07/18 05:00 Microcytosis Not Reportable 03/07/18 05:00 Macrocytosis Not Reportable 03/07/18 05:00 Spherocytes Not Reportable 03/07/18 05:00 Pappenheimer Bodies Not Reportable 03/07/18 05:00 Sickle Cells Not Reportable 03/07/18 05:00 Target Cells Not Reportable 03/07/18 05:00 Tear Drop Cells Not Reportable 03/07/18 05:00 Ovalocytes Not Reportable 03/07/18 05:00 Stomatocytes Few 02/28/18 09:00 Helmet Cells Not Reportable 03/07/18 05:00 [place] Bodies Not Reportable 03/07/18 05:00 [place] Rings Not Reportable 03/07/18 05:00 L[place] Cells Not Reportable 03/07/18 05:00 Bite Cells Not Reportable 03/07/18 05:00 Crenated Cell Not Reportable 03/07/18 05:00 Elliptocytes Not Reportable 03/07/18 05:00 Acanthocytes (Spur) Not Reportable 03/07/18 05:00 Rouleaux Not Reportable 03/07/18 05:00 Hemoglobin C Crystals Not Reportable 03/07/18 05:00 Schistocytes Not Reportable 03/07/18 05:00 Malaria parasites Not Reportable 03/07/18 05:00 Aric Bodies Not Reportable 03/07/18 05:00 Hem Pathologist Commnt No 03/07/18 05:00 PT 21.5 Sec. (12.2-14.9) H 02/26/18 20:50 INR 1.75 (0.87-1.13) H 02/26/18 20:50 POC ABG pH 7.639 (7.35-7.45) H 03/06/18 21:16 POC ABG pCO2 25.3 (35-45) L 03/06/18 21:16 POC ABG pO2 82 (80-105) 03/06/18 21:16 POC ABG HCO3 27.2 03/06/18 21:16 POC ABG Total CO2 28 03/06/18 21:16 POC ABG O2 Sat 98 03/06/18 21:16 POC ABG Base Excess 6 03/06/18 21:16 VBG pH 7.406 (7.320-7.420) 02/25/18 23:15 FiO2 40 % 03/06/18 21:16 Sodium 138 mmol/L (137-145) 03/07/18 05:00 Potassium 3.8 mmol/L (3.6-5.0) 03/07/18 05:00 Chloride 90.6 mmol/L (98-107) L 03/07/18 05:00 Carbon Dioxide 27 mmol/L (22-30) 03/07/18 05:00 Anion Gap 24 mmol/L 03/07/18 05:00 BUN 65 mg/dL (9-20) H 03/07/18 05:00 Creatinine 3.4 mg/dL (0.8-1.5) H 03/07/18 05:00 Estimated GFR 22 ml/min 03/07/18 05:00 BUN/Creatinine Ratio 19 % 03/07/18 05:00 Glucose 90 mg/dL (75-100) 03/07/18 05:00 POC Glucose 121 (70-105) H 03/07/18 06:32 Lactic Acid 3.10 mmol/L (0.7-2.0) H* 02/28/18 07:04 Calcium 7.3 mg/dL (8.4-10.2) L 03/07/18 05:00 Phosphorus 1.50 mg/dL (2.5-4.5) L 02/28/18 17:10 Magnesium 1.40 mg/dL (1.7-2.3) L 03/03/18 12:37 Total Bilirubin 4.50 mg/dL (0.1-1.2) H 02/26/18 07:39 AST 105 units/L (5-40) H 02/26/18 07:39 ALT 48 units/L (7-56) 02/26/18 07:39 Alkaline Phosphatase 109 units/L (35-129) 02/26/18 07:39 C-Reactive Protein 19.80 mg/dL (0.00-1.30) H 03/04/18 05:30 Total Protein 6.4 g/dL (6.3-8.2) 02/26/18 07:39 Albumin 2.4 g/dL (3.9-5) L 02/26/18 07:39 Albumin/Globulin Ratio 0.6 % 02/26/18 07:39 Lipase 35 units/L (13-60) 02/26/18 02:58 TSH 2.670 mlU/mL (0.270-4.200) 02/26/18 00:10 Free T4 1.26 ng/dL (0.76-1.46) 02/26/18 00:10 Urine Color Lesley (Yellow) 02/26/18 00:32 Urine Turbidity Hazy (Clear) 02/26/18 00:32 Urine pH 5.0 (5.0-7.0) 02/26/18 00:32 Ur Specific [place] 1.015 (1.003-1.030) 02/26/18 00:32 Urine Protein <15 mg/dl mg/dL (Negative) 02/26/18 00:32 Urine Glucose (UA) Neg mg/dL (Negative) 02/26/18 00:32 Urine Ketones Neg mg/dL (Negative) 02/26/18 00:32 Urine Blood Neg (Negative) 02/26/18 00:32 Urine Nitrite Neg (Negative) 02/26/18 00:32 Urine Bilirubin Neg (Negative) 02/26/18 00:32 Urine Urobilinogen 4.0 mg/dL (<2.0) 02/26/18 00:32 Ur Leukocyte Esterase Neg (Negative) 02/26/18 00:32 Urine WBC (Auto) 1.0 /HPF (0.0-6.0) 02/26/18 00:32 Urine RBC (Auto) 1.0 /HPF (0.0-6.0) 02/26/18 00:32 U Epithel Cells (Auto) 1.0 /HPF (0-13.0) 02/26/18 00:32 Amorphous Crystals 3+ 02/26/18 00:32 Hyaline Casts 4 /LPF 02/26/18 00:32 Urine Mucus Few /HPF 02/26/18 00:32 Urine Creatinine 38.6 mg/dL (0.1-20.0) H 02/26/18 13:08 Urine Sodium 67 mmol/L 02/26/18 13:08 Blood Type A POSITIVE 03/03/18 08:37 Antibody Screen Negative 03/03/18 08:37 Crossmatch See Detail 03/03/18 08:37
--- NOTE | 2018-03-07 15:25 | Progress Note ---
Assessment and Plan Assessment: 1) Severe sepsis with septic shock: back on levophedat 1, still leukocytosis but better, no fever; source pneumonia 2) Complicated Multilobar pneumonia: due to MRSA and GAS -CT chest 03/05 josh lower lobes consolidations, no abscesses 3) Acute respiratory failure: on the vent 4) Acute encephalopathy 5) DIANNA - better 6) History of CVA 7) S/p cardiac arrest 8) New CVA - right MCA territory Plan: -continue zyvox IV D9/14 -continue penicillin G and Clindamycin IV D7/10 -monitor leukcoytosis which is better -contact isolation Thanks Mimi Lay MD Subjective Date of service: 03/07/18 Principal diagnosis: Acute Hypoxemic Resp Failure; Severe Sepsis; Aspiration Pneumonai (HCAP) Interval history: Remains on the vent, alert, still levophed at 1 mcg no fever Micro: Blood cx 02/26 ngtd Blood cx 03/04 ngtd Urine cx 02/26 neg Tracheal asp 02/26 MRSA and GAS x 2 Current Abx: zyvox 02/28 clinda 03/01 pen G 03/01 Previous Abx: zosyn vanco Objective - Exam Narrative Exam: Sedated eyes open on the vent NC/AT, ASH, OP with ETT, OGT Neck no LNs Lungs josh scattered rhonchi CV tachycardic Abd soft distended Ext +josh leg edema Neuro sedated Skin no rash Lines: - Constitutional Vitals: Vital Signs Temp Pulse Resp BP Pulse Ox 99.2 F 99 H 27 H 103/60 99 03/07/18 12:00 03/07/18 12:28 03/07/18 12:28 03/07/18 12:28 03/07/18 12:28 Temperature -Last 24 Hours Temperature 99.2 F Temperature 99.0 F Temperature 98.6 F Temperature 98.6 F Temperature 98.6 F Temperature 98.3 F - Labs CBC & Chem 7: 03/07/18 05:00 03/07/18 05:00 Labs: Abnormal lab results 03/06/18 03/07/18 03/07/18 Range/Units 21:16 05:00 05:00 WBC 17.5 H (4.5-11.0) K/mm3 RBC 2.41 L (3.65-5.03) M/mm3 Hgb 7.3 L (11.8-15.2) gm/dl Hct 21.5 L (35.5-45.6) % RDW 16.6 H (13.2-15.2) % Seg Neuts % (Manual) 97.0 H (40.0-70.0) % Lymphocytes % (Manual) 1.0 L (13.4-35.0) % Seg Neutrophils # Man 17.0 H (1.8-7.7) K/mm3 Lymphocytes # (Manual) 0.2 L (1.2-5.4) K/mm3 POC ABG pH 7.639 H (7.35-7.45) POC ABG pCO2 25.3 L (35-45) Chloride 90.6 L (98-107) mmol/L BUN 65 H (9-20) mg/dL Creatinine 3.4 H (0.8-1.5) mg/dL POC Glucose (70-105) Calcium 7.3 L (8.4-10.2) mg/dL 03/07/18 Range/Units 06:32 WBC (4.5-11.0) K/mm3 RBC (3.65-5.03) M/mm3 Hgb (11.8-15.2) gm/dl Hct (35.5-45.6) % RDW (13.2-15.2) % Seg Neuts % (Manual) (40.0-70.0) % Lymphocytes % (Manual) (13.4-35.0) % Seg Neutrophils # Man (1.8-7.7) K/mm3 Lymphocytes # (Manual) (1.2-5.4) K/mm3 POC ABG pH (7.35-7.45) POC ABG pCO2 (35-45) Chloride (98-107) mmol/L BUN (9-20) mg/dL Creatinine (0.8-1.5) mg/dL POC Glucose 121 H (70-105) Calcium (8.4-10.2) mg/dL
[2018-03-07] MEDS: fentaNYL DRIP Premix 2,000 MCG/100 ML BAG IV SCH (20:51)
[2018-03-08] MEDS: HumuLIN R SUB-Q SCH ×4 (01:13→19:03)
[2018-03-08] MEDS: PFIZERPEN 4 MIL.UNITS in NACL 0.9% 50 ML IV SCH ×4 (01:15→17:42)
[2018-03-08] MEDS: DUONEB *Not for PRN Use IH SCH ×3 (01:37→16:08)
[2018-03-08] MEDS: fentaNYL DRIP Premix 2,000 MCG/100 ML BAG IV SCH (02:14)
[2018-03-08 04:50] LABS: Hematocrit 21.2 % (35.5-45.6); Hemoglobin 7.1 gm/dl (11.8-15.2); Mean Corpuscular HGB Conc 33 % (32-34); Mean Corpuscular Hemoglobin 30 pg (28-32); Mean Corpuscular Volume 90 fl (84-94); Platelet Count 178 K/mm3 (140-440); Red Blood Count 2.36 M/mm3 (3.65-5.03); Red Cell Distribution Width 16.5 % (13.2-15.2)
[2018-03-08 06:07] LABS: Band Neutrophils # (Manual) 0.1 K/mm3; Eosinophils % (Manual) 0 % (0.0-4.3); Myelocytes # (Manual) 0.1 K/mm3; Total Cells Counted 100
[2018-03-08 06:08] LABS: Platelet Estimate Consistent w Auto; Target Cells 1+
[2018-03-08] MEDS: CLEOCIN 600 MG/50 mL 600 MG/50 ML BAG IV SCH ×3 (06:09→22:05)
[2018-03-08] MEDS: HEPARIN SUB-Q SCH ×2 (06:12→11:01)
[2018-03-08] MEDS: SODIUM CHLORIDE FLUSH SYRINGE 10 ML IV SCH ×2 (06:13→11:05)
[2018-03-08] MEDS: ZYVOX PO SCH ×2 (06:14→11:00)
[2018-03-08] MEDS: KEPPRA FEEDTUBE SCH ×2 (06:20→17:43)
--- NOTE | 2018-03-08 09:34 | Progress Note ---
Assessment and Plan Impression: * Nonoliguric acute kidney injury secondary to prerenal azotemia/ATN due to dehydration vs sepsis --Baseline SCr 1.6-1.8mg/dL * Acute hypoxic respiratory failure * Sepsis * Asp PNA * HCAP --sputum w/ MRSA, group A beta hemolytic strep * Hypernatremia secondary to dehydration - resolved * Metabolic acidosis secondary to lactic acidosis * CVA with left hemiplegia--Acute Plan: * Continue IVF--co2 is better * follow up crcl * if refractory to medical treatment, may need electrical instrument maker, no indication today * Keep MAP>65 * sz likely due to embolic CVA * prn transfusion of pRBC * Replete lytes prn * Vent management per CCM * Broad spectrum abx * Dose medications for renal function * Avoid potential nephrotoxins Subjective Date of service: 03/08/18 Principal diagnosis: Acute Hypoxemic Resp Failure; Severe Sepsis; Aspiration Pneumonai (HCAP) Interval history: resting well in bed today Objective - Exam Narrative Exam: General appearance: intubated EENT: ATNC, other (ETT in place) Respiratory: Present: Other (coarse breath sounds) Cardiology: tachycardia, S1S2 Gastrointestinal: normal, no distended Integumentary: no rash, warm and dry Musculoskeletal: other (no edema) - Vital Signs Vital signs: Vital Signs - 12hr 03/07/18 03/07/18 03/07/18 21:45 22:00 22:15 Temperature Pulse Rate 118 H 121 H 122 H Pulse Rate [ Anterior Bilateral Throughout] Pulse Rate [ From Monitor] Respiratory 24 22 20 Rate Respiratory Rate [Anterior Bilateral Throughout] Blood Pressure 105/62 107/68 113/71 O2 Sat by Pulse 93 94 94 Oximetry 03/07/18 03/07/18 03/07/18 22:30 22:45 23:00 Temperature Pulse Rate 122 H 123 H 119 H Pulse Rate [ Anterior Bilateral Throughout] Pulse Rate [ From Monitor] Respiratory 21 29 H 25 H Rate Respiratory Rate [Anterior Bilateral Throughout] Blood Pressure 115/70 124/67 92/46 O2 Sat by Pulse 94 96 94 Oximetry 03/07/18 03/07/18 03/07/18 23:15 23:17 23:25 Temperature Pulse Rate 117 H 117 H 121 H Pulse Rate [ Anterior Bilateral Throughout] Pulse Rate [ From Monitor] Respiratory 22 21 Rate Respiratory Rate [Anterior Bilateral Throughout] Blood Pressure 84/43 84/43 124/67 O2 Sat by Pulse 94 93 96 Oximetry 03/07/18 03/07/18 03/08/18 23:30 23:45 00:00 Temperature 98.3 F Pulse Rate 116 H 114 H 117 H Pulse Rate [ Anterior Bilateral Throughout] Pulse Rate [ 116 H From Monitor] Respiratory 19 23 21 Rate Respiratory Rate [Anterior Bilateral Throughout] Blood Pressure 85/39 88/47 91/55 O2 Sat by Pulse 93 95 95 Oximetry 03/08/18 03/08/18 03/08/18 00:15 00:30 00:45 Temperature Pulse Rate 114 H 116 H 113 H Pulse Rate [ Anterior Bilateral Throughout] Pulse Rate [ From Monitor] Respiratory 21 17 15 Rate Respiratory Rate [Anterior Bilateral Throughout] Blood Pressure 91/47 105/57 92/50 O2 Sat by Pulse 95 96 97 Oximetry 03/08/18 03/08/18 03/08/18 01:00 01:15 01:30 Temperature Pulse Rate 113 H 115 H 119 H Pulse Rate [ Anterior Bilateral Throughout] Pulse Rate [ From Monitor] Respiratory 19 17 20 Rate Respiratory Rate [Anterior Bilateral Throughout] Blood Pressure 93/50 86/53 109/67 O2 Sat by Pulse 97 97 96 Oximetry 03/08/18 03/08/18 03/08/18 01:45 02:00 02:15 Temperature Pulse Rate 114 H 113 H 114 H Pulse Rate [ Anterior Bilateral Throughout] Pulse Rate [ From Monitor] Respiratory 17 17 20 Rate Respiratory Rate [Anterior Bilateral Throughout] Blood Pressure 94/47 94/47 81/46 O2 Sat by Pulse 96 96 93 Oximetry 03/08/18 03/08/18 03/08/18 02:30 02:45 03:00 Temperature Pulse Rate 113 H 113 H 113 H Pulse Rate [ Anterior Bilateral Throughout] Pulse Rate [ From Monitor] Respiratory 18 18 18 Rate Respiratory Rate [Anterior Bilateral Throughout] Blood Pressure 86/39 86/43 83/44 O2 Sat by Pulse 93 94 94 Oximetry 03/08/18 03/08/18 03/08/18 03:15 03:30 03:45 Temperature Pulse Rate 113 H 116 H 112 H Pulse Rate [ Anterior Bilateral Throughout] Pulse Rate [ From Monitor] Respiratory 20 22 20 Rate Respiratory Rate [Anterior Bilateral Throughout] Blood Pressure 91/44 101/59 94/47 O2 Sat by Pulse 96 95 94 Oximetry 03/08/18 03/08/18 03/08/18 03:50 04:00 04:15 Temperature 98.6 F Pulse Rate 113 H 113 H 114 H Pulse Rate [ Anterior Bilateral Throughout] Pulse Rate [ 114 H From Monitor] Respiratory 22 20 Rate Respiratory Rate [Anterior Bilateral Throughout] Blood Pressure 124/67 87/43 93/47 O2 Sat by Pulse 94 95 94 Oximetry 03/08/18 03/08/18 03/08/18 04:30 07:39 07:51 Temperature Pulse Rate 112 H 119 H Pulse Rate [ 119 H Anterior Bilateral Throughout] Pulse Rate [ From Monitor] Respiratory 21 Rate Respiratory 24 Rate [Anterior Bilateral Throughout] Blood Pressure 86/46 101/61 O2 Sat by Pulse 94 94 Oximetry 03/08/18 08:40 Temperature Pulse Rate Pulse Rate [ 121 H Anterior Bilateral Throughout] Pulse Rate [ From Monitor] Respiratory Rate Respiratory 18 Rate [Anterior Bilateral Throughout] Blood Pressure O2 Sat by Pulse Oximetry - Lab 03/08/18 04:30 03/07/18 05:00 Most recent lab results Calcium 7.3 mg/dL (8.4-10.2) L 03/07/18 05:00 Phosphorus 5.10 mg/dL (2.5-4.5) H 03/03/18 04:30 Magnesium 1.40 mg/dL (1.7-2.3) L 03/03/18 12:37 Urine Creatinine 38.6 mg/dL (0.1-20.0) H 02/26/18 13:08 Urine Sodium 67 mmol/L 02/26/18 13:08
--- NOTE | 2018-03-08 09:53 | Progress Note ---
Assessment and Plan Assessment and plan: 72-year-old male with history of cerebrovascular accident hemiplegia. Alzheimer's and nonverbal from [facility] sent for altered mental state. Since yesterday and high fever and increasing shortness of breath and respiratory distress. Patient's temperature was 103.2F in the initial evaluation in the emergency room. Patient was also severely tachypneic with respiratory rate of 40. Sudden onset. No exacerbating or relieving factors. Patient is a resident of shelter facility. Patient continued in the ICU started on broad septurm abx and later de-escalated to Zyvox for MRSA and had rapid response was called following worsening symptoms with chest compression ensuing. CT brain shows New CVA/SUBACUTE CVA, with again noted with mengioma, Neurology consulted and EEG, with extensive family conversation. Nephrology was also on board with notation of Nonoliguric acute kidney injury secondary to prerenal azotemia/ATN due to dehydration vs sepsis and Metabolic acidosis secondary to lactic acidosis among others but with no indication for DOOR ATTENDANT at the time. ID/commissioning specialist following 03/03: Went into cardiopulmonary arrest. Resuscitated according to ACLS protocol and commenced on IV Levophed for hypotension 03/05: Pt had recurrent seizure over the night and CT head showed right MCA acute /subacute stroke and calcified meningioma in the left frontal area Acute right MCA stroke * Neurology pending consulted and input noted * EEG, WITH anti-seizure meds Septic Shock * follow cultures * Continue Zyvox and Pen G and Clinda * continue isolation per ID * on pressors Anemia * Transfuse as needed Cardiopulmonary arrest * Resuscitated according to ACLS protocol * Commenced on Levophed drip for hypotension Acute Hypoxemic Respiratory Failure * Continues on mechanical ventilation >96HRS * Pulmonary following. * Aspiration precautions * Plan for Trach and PEg * MRSA on sputum * Continue nebs, now off solumedrol Aspiration Pneumonia- Multilobar * Continue abx as noted above * Cultures showing MRSA, GAS * PCN AND CLINDAMYCIN ADDED * CONTACT ISOATION Acute ON CHRONIC Encephalopathy * patient with alzhimers disease Acute Kidney injury * Likely secondary to ATN * improved Sacral Pressure ulcer * wound care consult Hypernatermia * Resolving Diabetes. * Continue sliding scale coverage History of Alzheimer dementia. BPH * Continue Finasterid Hyperlipidemia * continue statin CVA PER HX-WITH LEFT SIDED HEMIPLEGIA * Complete immobility due to frailty per documentation ANEMIA * Of chronic disease, monitor closely s/p 3 units PRBC DVT/GI prophy Discussed with son. Poor prognosis Plan for LTAC eval CONTINUE [facility]RIANT FOR SAFETY The high probability of a clinically significant, sudden or life threatening deterioration of the [PULMONARY] system(s) required my full and direct attention , intervention and personal management. The aggregate critical care time was [45 ] minutes. This time is in addition to time spent performing reported procedures but includes the following: [X] Data Review and interpretation [X] Patient assessment and monitoring of vital signs [X] Documentation [X] Medication orders and management History Interval history: Patient seen and examined, remains intubated, opens eyes to verbal stimuli but not following any commands. Still with low bp AND ON LEVOPHED Hospitalist Physical - Physical exam Narrative exam: VITAL SIGNS: Reviewed. GENERAL: The patient appeared Chronically ill, on mechanical ventilation. Vital signs as documented. HEAD: No signs of head trauma. Marked temporal wasting EYES: Pupils are equal. Extraocular motions intact. EARS: Hearing grossly intact. MOUTH: ETT NECK: No adenopathy, no JVD. CHEST: Chest with crackles breath sounds bilaterally bases. CARDIAC: Regular rate and rhythm. S1 and S2, without murmurs, gallops, or rubs. VASCULAR: No Edema. Peripheral pulses normal and equal in all extremities. ABDOMEN: Soft, without detectable tenderness. No sign of distention. No rebound or guarding, and no masses palpated. Bowel Sounds normal. MUSCULOSKELETAL: Extremities without clubbing, cyanosis or edema. NEUROLOGIC EXAM: Awake, but lethargic. Unable to examine. Left sided weakness. focal deficits, severely altered sensorium and nearly unresponsive PSYCHIATRIC: unable to assess. SKIN: Pressure Ulcer - Constitutional Vitals: Temp Pulse Resp BP Pulse Ox 98.6 F 121 H 18 101/61 94 03/08/18 04:00 03/08/18 08:40 03/08/18 08:40 03/08/18 07:39 03/08/18 07:39 General appearance: Present: no acute distress, well-nourished Results - Labs CBC & Chem 7: 03/10/18 06:55 03/10/18 06:55 Labs: Laboratory Last Values WBC 13.9 K/mm3 (4.5-11.0) H 03/08/18 04:30 RBC 2.36 M/mm3 (3.65-5.03) L 03/08/18 04:30 Hgb 7.1 gm/dl (11.8-15.2) L 03/08/18 04:30 Hct 21.2 % (35.5-45.6) L 03/08/18 04:30 MCV 90 fl (84-94) 03/08/18 04:30 MCH 30 pg (28-32) 03/08/18 04:30 MCHC 33 % (32-34) 03/08/18 04:30 RDW 16.5 % (13.2-15.2) H 03/08/18 04:30 Plt Count 178 K/mm3 (140-440) 03/08/18 04:30 Add Manual Diff Complete 03/08/18 04:30 Total Counted 100 03/08/18 04:30 Seg Neutrophils % Outsole Rounder 03/08/18 04:30 Seg Neuts % (Manual) 91.0 % (40.0-70.0) H 03/08/18 04:30 Band Neutrophils % 1.0 % 03/08/18 04:30 Lymphocytes % (Manual) 2.0 % (13.4-35.0) L 03/08/18 04:30 Reactive Lymphs % (Man) 0 % 03/08/18 04:30 Monocytes % (Manual) 4.0 % (0.0-7.3) 03/08/18 04:30 Eosinophils % (Manual) 0 % (0.0-4.3) 03/08/18 04:30 Basophils % (Manual) 1.0 % (0.0-1.8) 03/08/18 04:30 Metamyelocytes % 0 % 03/08/18 04:30 Myelocytes % 1.0 % 03/08/18 04:30 Promyelocytes % 0 % 03/08/18 04:30 Blast Cells % 0 % 03/08/18 04:30 Nucleated RBC % Not Reportable 03/08/18 04:30 Seg Neutrophils # Man 12.6 K/mm3 (1.8-7.7) H 03/08/18 04:30 Band Neutrophils # 0.1 K/mm3 03/08/18 04:30 Lymphocytes # (Manual) 0.3 K/mm3 (1.2-5.4) L 03/08/18 04:30 Abs React Lymphs (Man) 0.0 K/mm3 03/08/18 04:30 Monocytes # (Manual) 0.6 K/mm3 (0.0-0.8) 03/08/18 04:30 Eosinophils # (Manual) 0.0 K/mm3 (0.0-0.4) 03/08/18 04:30 Basophils # (Manual) 0.1 K/mm3 (0.0-0.1) 03/08/18 04:30 Metamyelocytes # 0.0 K/mm3 03/08/18 04:30 Myelocytes # 0.1 K/mm3 03/08/18 04:30 Promyelocytes # 0.0 K/mm3 03/08/18 04:30 Blast Cells # 0.0 K/mm3 03/08/18 04:30 WBC Morphology Not Reportable 03/08/18 04:30 Hypersegmented Neuts Not Reportable 03/08/18 04:30 Hyposegmented Neuts Not Reportable 03/08/18 04:30 Hypogranular Neuts Not Reportable 03/08/18 04:30 Smudge Cells Not Reportable 03/08/18 04:30 Toxic Granulation Not Reportable 03/08/18 04:30 Toxic Vacuolation Not Reportable 03/08/18 04:30 Dohle Bodies Not Reportable 03/08/18 04:30 Pelger-Huet Anomaly Not Reportable 03/08/18 04:30 Erwin Rods Not Reportable 03/08/18 04:30 Platelet Estimate Consistent w auto 03/08/18 04:30 Clumped Platelets Not Reportable 03/08/18 04:30 Plt Clumps, EDTA Not Reportable 03/08/18 04:30 Large Platelets Not Reportable 03/08/18 04:30 Giant Platelets Not Reportable 03/08/18 04:30 Platelet Satelliting Not Reportable 03/08/18 04:30 Plt Morphology Comment Not Reportable 03/08/18 04:30 RBC Morphology Not Reportable 03/08/18 04:30 Dimorphic RBCs Not Reportable 03/08/18 04:30 Polychromasia Not Reportable 03/08/18 04:30 Hypochromasia Not Reportable 03/08/18 04:30 Poikilocytosis Not Reportable 03/08/18 04:30 Anisocytosis Not Reportable 03/08/18 04:30 Microcytosis Not Reportable 03/08/18 04:30 Macrocytosis Not Reportable 03/08/18 04:30 Spherocytes Not Reportable 03/08/18 04:30 Pappenheimer Bodies Not Reportable 03/08/18 04:30 Sickle Cells Not Reportable 03/08/18 04:30 Target Cells 1+ 03/08/18 04:30 Tear Drop Cells Not Reportable 03/08/18 04:30 Ovalocytes Not Reportable 03/08/18 04:30 Stomatocytes Few 02/28/18 09:00 Helmet Cells Not Reportable 03/08/18 04:30 [place] Bodies Not Reportable 03/08/18 04:30 [place] Rings Not Reportable 03/08/18 04:30 [place] Cells Not Reportable 03/08/18 04:30 Bite Cells Not Reportable 03/08/18 04:30 Crenated Cell Not Reportable 03/08/18 04:30 Elliptocytes Not Reportable 03/08/18 04:30 Acanthocytes (Spur) Not Reportable 03/08/18 04:30 Rouleaux Not Reportable 03/08/18 04:30 Hemoglobin C Crystals Not Reportable 03/08/18 04:30 Schistocytes Not Reportable 03/08/18 04:30 Malaria parasites Not Reportable 03/08/18 04:30 Aric Bodies Not Reportable 03/08/18 04:30 Hem Pathologist Commnt No 03/08/18 04:30 PT 21.5 Sec. (12.2-14.9) H 02/26/18 20:50 INR 1.75 (0.87-1.13) H 02/26/18 20:50 POC ABG pH 7.639 (7.35-7.45) H 03/06/18 21:16 POC ABG pCO2 25.3 (35-45) L 03/06/18 21:16 POC ABG pO2 82 (80-105) 03/06/18 21:16 POC ABG HCO3 27.2 03/06/18 21:16 POC ABG Total CO2 28 03/06/18 21:16 POC ABG O2 Sat 98 03/06/18 21:16 POC ABG Base Excess 6 03/06/18 21:16 VBG pH 7.406 (7.320-7.420) 02/25/18 23:15 FiO2 40 % 03/06/18 21:16 Sodium 138 mmol/L (137-145) 03/07/18 05:00 Potassium 3.8 mmol/L (3.6-5.0) 03/07/18 05:00 Chloride 90.6 mmol/L (98-107) L 03/07/18 05:00 Carbon Dioxide 27 mmol/L (22-30) 03/07/18 05:00 Anion Gap 24 mmol/L 03/07/18 05:00 BUN 65 mg/dL (9-20) H 03/07/18 05:00 Creatinine 3.4 mg/dL (0.8-1.5) H 03/07/18 05:00 Estimated GFR 22 ml/min 03/07/18 05:00 BUN/Creatinine Ratio 19 % 03/07/18 05:00 Glucose 90 mg/dL (75-100) 03/07/18 05:00 POC Glucose 95 (70-105) 03/08/18 06:04 Lactic Acid 3.10 mmol/L (0.7-2.0) H* 02/28/18 07:04 Calcium 7.3 mg/dL (8.4-10.2) L 03/07/18 05:00 Phosphorus 5.10 mg/dL (2.5-4.5) H 03/03/18 04:30 Magnesium 1.40 mg/dL (1.7-2.3) L 03/03/18 12:37 Total Bilirubin 4.50 mg/dL (0.1-1.2) H 02/26/18 07:39 AST 105 units/L (5-40) H 02/26/18 07:39 ALT 48 units/L (7-56) 02/26/18 07:39 Alkaline Phosphatase 109 units/L (35-129) 02/26/18 07:39 C-Reactive Protein 19.80 mg/dL (0.00-1.30) H 03/04/18 05:30 Total Protein 6.4 g/dL (6.3-8.2) 02/26/18 07:39 Albumin 2.4 g/dL (3.9-5) L 02/26/18 07:39 Albumin/Globulin Ratio 0.6 % 02/26/18 07:39 Lipase 35 units/L (13-60) 02/26/18 02:58 TSH 2.670 mlU/mL (0.270-4.200) 02/26/18 00:10 Free T4 1.26 ng/dL (0.76-1.46) 02/26/18 00:10 Urine Color Lesley (Yellow) 02/26/18 00:32 Urine Turbidity Hazy (Clear) 02/26/18 00:32 Urine pH 5.0 (5.0-7.0) 02/26/18 00:32 Ur Specific [place] 1.015 (1.003-1.030) 02/26/18 00:32 Urine Protein <15 mg/dl mg/dL (Negative) 02/26/18 00:32 Urine Glucose (UA) Neg mg/dL (Negative) 02/26/18 00:32 Urine Ketones Neg mg/dL (Negative) 02/26/18 00:32 Urine Blood Neg (Negative) 02/26/18 00:32 Urine Nitrite Neg (Negative) 02/26/18 00:32 Urine Bilirubin Neg (Negative) 02/26/18 00:32 Urine Urobilinogen 4.0 mg/dL (<2.0) 02/26/18 00:32 Ur Leukocyte Esterase Neg (Negative) 02/26/18 00:32 Urine WBC (Auto) 1.0 /HPF (0.0-6.0) 02/26/18 00:32 Urine RBC (Auto) 1.0 /HPF (0.0-6.0) 02/26/18 00:32 U Epithel Cells (Auto) 1.0 /HPF (0-13.0) 02/26/18 00:32 Amorphous Crystals 3+ 02/26/18 00:32 Hyaline Casts 4 /LPF 02/26/18 00:32 Urine Mucus Few /HPF 02/26/18 00:32 Urine Creatinine 38.6 mg/dL (0.1-20.0) H 02/26/18 13:08 Urine Sodium 67 mmol/L 02/26/18 13:08 Blood Type A POSITIVE 03/03/18 08:37 Antibody Screen Negative 03/03/18 08:37 Crossmatch See Detail 03/03/18 08:37
--- NOTE | 2018-03-08 10:12 | Progress Note ---
Assessment and Plan Assessment: 1) Severe sepsis with septic shock: off pressors, still leukocytosis but better , no fever; source pneumonia 2) Complicated Multilobar pneumonia: due to MRSA and GAS -CT chest 03/05 josh lower lobes consolidations, no abscesses 3) Acute respiratory failure: on the vent 4) Acute encephalopathy 5) DIANNA - better 6) History of CVA 7) S/p cardiac arrest 8) New CVA - right MCA territory Plan: -continue zyvox IV [id number] -continue penicillin G and Clindamycin IV D8/10 -monitor leukcoytosis which is better -contact isolation I am rounding on 03/10 Thanks Mimi Lay MD Subjective Date of service: 03/08/18 Principal diagnosis: Acute Hypoxemic Resp Failure; Severe Sepsis; Aspiration Pneumonai (HCAP) Interval history: Remains on the vent, alert, off pressors, no fever Micro: Blood cx 02/26 ngtd Blood cx 03/04 ngtd Urine cx 02/26 neg Tracheal asp 02/26 MRSA and GAS x 2 Current Abx: zyvox 02/28 clinda 03/01 pen G 03/01 Previous Abx: zosyn vanco Objective - Exam Narrative Exam: Sedated eyes open on the vent NC/AT, ASH, OP with ETT, OGT Neck no LNs Lungs josh scattered rhonchi CV tachycardic Abd soft distended Ext +josh leg edema Neuro sedated Skin no rash Lines: - Constitutional Vitals: Vital Signs Temp Pulse Resp BP Pulse Ox 98.6 F 121 H 18 101/61 94 03/08/18 04:00 03/08/18 08:40 03/08/18 08:40 03/08/18 07:39 03/08/18 07:39 Temperature -Last 24 Hours Temperature 98.6 F Temperature 98.3 F Temperature 98.4 F Temperature 97.8 F Temperature 99.2 F - Labs CBC & Chem 7: 03/08/18 04:30 03/07/18 05:00 Labs: Abnormal lab results 03/03/18 03/08/18 Range/Units 04:30 04:30 WBC 13.9 H (4.5-11.0) K/mm3 RBC 2.36 L (3.65-5.03) M/mm3 Hgb 7.1 L (11.8-15.2) gm/dl Hct 21.2 L (35.5-45.6) % RDW 16.5 H (13.2-15.2) % Seg Neuts % (Manual) 91.0 H (40.0-70.0) % Lymphocytes % (Manual) 2.0 L (13.4-35.0) % Seg Neutrophils # Man 12.6 H (1.8-7.7) K/mm3 Lymphocytes # (Manual) 0.3 L (1.2-5.4) K/mm3 Phosphorus 5.10 H (2.5-4.5) mg/dL
[2018-03-08] MEDS: PEPCID PO SCH (11:03)
[2018-03-08] MEDS: ALBURX 25% (ALBUMIN) IV SCH ×2 (11:03→22:00)
--- NOTE | 2018-03-08 11:28 | Progress Note ---
Assessment and Plan Severe sepsis with septic shock. Aspiration pneumonia, healthcare associated. Acute hypoxemic respiratory failure on MVS Acute/Subacute right MCA stroke Acute on chronic encephalopathy. Acute on chronic kidney injury. Anemia. Hypernatremia. Metabolic acidosis/lactic acidosis. Leukocytosis History of hypertension. History of diabetes. History of Alzheimer dementia. - continue full MVS for now - continue bronchodilators with pulmonary hygiene per RT - continue to wean FiO2 for sats > 90% - addressing VAP bundle daily - strict I's & O's re: DIANNA and will leave shrestha catheter in place for now, especially with worsening renal function -Revisit possibility of HD/UF with renal service to allow for fluid management and attempts at liberating from MVS - trend CRP and lactate prn - continue enteral nutrition as tolerated - continue mobility protocol for pressure ulcer prophylaxis - continue GI & VTE prophylaxis - continue antibiotics deescalate an adjust based on culture results and MICAELA - Antibiotics per ID - contact precautions - 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 The aggregate critical care time was [35] minutes without overlap. Time includes spent on; [x] Data Review and interpretation [x] Patient assessment and monitoring of vital signs [x] Documentation [x] Medication orders and management Subjective Date of service: 03/08/18 Principal diagnosis: Acute Hypoxemic Resp Failure; Severe Sepsis; Aspiration Pneumonai (HCAP) Interval history: Seen and examined. Vitals, labs, medications, chart and imaging reviewed. Continues to remain critically ill on full ventilatory, no fevers, off vasopressor support. On going leukocytosis. Appears more tachypnic, worsening peripheral edema and increased work of breathing Discussed with RT and RN at the bedside Objective Vital Signs - 12hr 03/07/18 03/07/18 03/08/18 23:30 23:45 00:00 Temperature 98.3 F Pulse Rate 116 H 114 H 117 H Pulse Rate [ Anterior Bilateral Throughout] Pulse Rate [ 116 H From Monitor] Respiratory 19 23 21 Rate Respiratory Rate [Anterior Bilateral Throughout] Blood Pressure 85/39 88/47 91/55 O2 Sat by Pulse 93 95 95 Oximetry 03/08/18 03/08/18 03/08/18 00:15 00:30 00:45 Temperature Pulse Rate 114 H 116 H 113 H Pulse Rate [ Anterior Bilateral Throughout] Pulse Rate [ From Monitor] Respiratory 21 17 15 Rate Respiratory Rate [Anterior Bilateral Throughout] Blood Pressure 91/47 105/57 92/50 O2 Sat by Pulse 95 96 97 Oximetry 03/08/18 03/08/18 03/08/18 01:00 01:15 01:30 Temperature Pulse Rate 113 H 115 H 119 H Pulse Rate [ Anterior Bilateral Throughout] Pulse Rate [ From Monitor] Respiratory 19 17 20 Rate Respiratory Rate [Anterior Bilateral Throughout] Blood Pressure 93/50 86/53 109/67 O2 Sat by Pulse 97 97 96 Oximetry 03/08/18 03/08/18 03/08/18 01:45 02:00 02:15 Temperature Pulse Rate 114 H 113 H 114 H Pulse Rate [ Anterior Bilateral Throughout] Pulse Rate [ From Monitor] Respiratory 17 17 20 Rate Respiratory Rate [Anterior Bilateral Throughout] Blood Pressure 94/47 94/47 81/46 O2 Sat by Pulse 96 96 93 Oximetry 03/08/18 03/08/18 03/08/18 02:30 02:45 03:00 Temperature Pulse Rate 113 H 113 H 113 H Pulse Rate [ Anterior Bilateral Throughout] Pulse Rate [ From Monitor] Respiratory 18 18 18 Rate Respiratory Rate [Anterior Bilateral Throughout] Blood Pressure 86/39 86/43 83/44 O2 Sat by Pulse 93 94 94 Oximetry 03/08/18 03/08/18 03/08/18 03:15 03:30 03:45 Temperature Pulse Rate 113 H 116 H 112 H Pulse Rate [ Anterior Bilateral Throughout] Pulse Rate [ From Monitor] Respiratory 20 22 20 Rate Respiratory Rate [Anterior Bilateral Throughout] Blood Pressure 91/44 101/59 94/47 O2 Sat by Pulse 96 95 94 Oximetry 03/08/18 03/08/18 03/08/18 03:50 04:00 04:15 Temperature 98.6 F Pulse Rate 113 H 113 H 114 H Pulse Rate [ Anterior Bilateral Throughout] Pulse Rate [ 114 H From Monitor] Respiratory 22 20 Rate Respiratory Rate [Anterior Bilateral Throughout] Blood Pressure 124/67 87/43 93/47 O2 Sat by Pulse 94 95 94 Oximetry 03/08/18 03/08/18 03/08/18 04:30 04:45 05:00 Temperature Pulse Rate 112 H 114 H 114 H Pulse Rate [ Anterior Bilateral Throughout] Pulse Rate [ From Monitor] Respiratory 21 21 20 Rate Respiratory Rate [Anterior Bilateral Throughout] Blood Pressure 86/46 80/47 89/46 O2 Sat by Pulse 94 94 94 Oximetry 03/08/18 03/08/18 03/08/18 05:15 05:31 05:45 Temperature Pulse Rate 129 H Pulse Rate [ Anterior Bilateral Throughout] Pulse Rate [ From Monitor] Respiratory 33 H 32 H Rate Respiratory Rate [Anterior Bilateral Throughout] Blood Pressure 80/47 80/47 114/71 O2 Sat by Pulse 92 84 Oximetry 03/08/18 03/08/18 03/08/18 06:00 06:15 06:30 Temperature Pulse Rate 120 H 119 H 114 H Pulse Rate [ Anterior Bilateral Throughout] Pulse Rate [ From Monitor] Respiratory 25 H 22 18 Rate Respiratory Rate [Anterior Bilateral Throughout] Blood Pressure 101/53 101/59 81/54 O2 Sat by Pulse 91 90 Oximetry 03/08/18 03/08/18 03/08/18 06:45 07:00 07:15 Temperature Pulse Rate 114 H 115 H 116 H Pulse Rate [ Anterior Bilateral Throughout] Pulse Rate [ From Monitor] Respiratory 19 21 18 Rate Respiratory Rate [Anterior Bilateral Throughout] Blood Pressure 96/60 97/63 95/58 O2 Sat by Pulse 90 92 93 Oximetry 03/08/18 03/08/18 03/08/18 07:30 07:39 07:45 Temperature Pulse Rate 116 H 119 H 120 H Pulse Rate [ Anterior Bilateral Throughout] Pulse Rate [ From Monitor] Respiratory 18 23 Rate Respiratory Rate [Anterior Bilateral Throughout] Blood Pressure 101/61 101/61 102/65 O2 Sat by Pulse 92 94 93 Oximetry 03/08/18 03/08/18 03/08/18 07:51 08:00 08:15 Temperature Pulse Rate 118 H 119 H Pulse Rate [ 119 H Anterior Bilateral Throughout] Pulse Rate [ From Monitor] Respiratory 23 20 Rate Respiratory 24 Rate [Anterior Bilateral Throughout] Blood Pressure 101/66 101/64 O2 Sat by Pulse 94 95 Oximetry 03/08/18 03/08/18 03/08/18 08:30 08:40 08:45 Temperature Pulse Rate 119 H 121 H Pulse Rate [ 121 H Anterior Bilateral Throughout] Pulse Rate [ From Monitor] Respiratory 15 21 Rate Respiratory 18 Rate [Anterior Bilateral Throughout] Blood Pressure 102/63 101/64 O2 Sat by Pulse 94 94 Oximetry 03/08/18 03/08/18 03/08/18 09:00 09:15 09:30 Temperature Pulse Rate 120 H 122 H 120 H Pulse Rate [ Anterior Bilateral Throughout] Pulse Rate [ From Monitor] Respiratory 17 16 20 Rate Respiratory Rate [Anterior Bilateral Throughout] Blood Pressure 101/64 92/59 101/61 O2 Sat by Pulse 94 95 90 Oximetry 03/08/18 03/08/18 03/08/18 09:45 10:00 10:15 Temperature Pulse Rate 119 H 117 H 118 H Pulse Rate [ Anterior Bilateral Throughout] Pulse Rate [ From Monitor] Respiratory 16 15 16 Rate Respiratory Rate [Anterior Bilateral Throughout] Blood Pressure 100/59 84/56 91/61 O2 Sat by Pulse 93 87 93 Oximetry 03/08/18 03/08/18 03/08/18 10:30 10:45 11:00 Temperature Pulse Rate 118 H 117 H 117 H Pulse Rate [ Anterior Bilateral Throughout] Pulse Rate [ From Monitor] Respiratory 18 22 23 Rate Respiratory Rate [Anterior Bilateral Throughout] Blood Pressure 94/61 104/68 96/54 O2 Sat by Pulse 90 93 88 Oximetry 03/08/18 11:15 Temperature Pulse Rate 117 H Pulse Rate [ Anterior Bilateral Throughout] Pulse Rate [ From Monitor] Respiratory 21 Rate Respiratory Rate [Anterior Bilateral Throughout] Blood Pressure 99/53 O2 Sat by Pulse 90 Oximetry Constitutional: appears uncomfortable, other (elderly looking AAM, normocephalic and atraumativ on MVS with increased respiratory effort) Eyes: non-icteric ENT: oropharynx moist, other (ETT 24 cm TERESA) Neck: supple, no lymphadenopathy, no JVD, other (no thyromegaly) Effort: mildly labored Ascultation: Bilateral: diminished breath sounds, rales Percussion: Bilateral: not dull Cardiovascular: regular rate and rhythm, other (No R/M, S1,S2) Gastrointestinal: normoactive bowel sounds, soft, non-tender, non-distended, other (+ PEG; No HSM) Integumentary: other (poor turgor) Extremities: no cyanosis, no edema, pulses normal, no ischemia or petechiae Neurologic: pupils equal and round, unable to assess Psychiatric: other (unable to assess re: encephalopathy) CBC and BMP: 03/10/18 20:02 03/11/18 14:25 ABG, PT/INR, D-dimer: ABG POC ABG pH 7.639 (7.35-7.45) H 03/06/18 21:16 POC ABG pCO2 25.3 (35-45) L 03/06/18 21:16 POC ABG pO2 82 (80-105) 03/06/18 21:16 POC ABG HCO3 27.2 03/06/18 21:16 POC ABG Total CO2 28 03/06/18 21:16 POC ABG O2 Sat 98 03/06/18 21:16 PT/INR, D-dimer PT 21.5 Sec. (12.2-14.9) H 02/26/18 20:50 INR 1.75 (0.87-1.13) H 02/26/18 20:50 Abnormal lab findings: Abnormal Labs 02/25/18 02/25/18 02/25/18 23:15 23:15 23:15 WBC 12.3 H RBC 3.56 L Hgb 10.2 L Hct 33.7 L MCV 95 H MCHC 30 L RDW 17.7 H Seg Neuts % (Manual) 35.0 L Lymphocytes % (Manual) 13.0 L Monocytes % (Manual) 8.0 H Nucleated RBC % Seg Neutrophils # Man Lymphocytes # (Manual) Monocytes # (Manual) 1.0 H PT 20.3 H INR 1.63 H POC ABG pH POC ABG pCO2 POC ABG pO2 Sodium 152 H Potassium Chloride 108.7 H Carbon Dioxide 18 L BUN 136 H Creatinine 5.2 H Glucose POC Glucose Lactic Acid Calcium 8.0 L Phosphorus Magnesium Total Bilirubin 4.50 H AST 83 H C-Reactive Protein Albumin 2.7 L Urine Creatinine Crossmatch 02/25/18 02/25/18 02/26/18 23:15 23:30 03:06 WBC RBC Hgb Hct MCV MCHC RDW Seg Neuts % (Manual) Lymphocytes % (Manual) Monocytes % (Manual) Nucleated RBC % Seg Neutrophils # Man Lymphocytes # (Manual) Monocytes # (Manual) PT INR POC ABG pH POC ABG pCO2 25.2 L POC ABG pO2 69 L Sodium Potassium Chloride Carbon Dioxide BUN Creatinine Glucose POC Glucose Lactic Acid 7.00 H* 9.70 H* Calcium Phosphorus Magnesium Total Bilirubin AST C-Reactive Protein Albumin Urine Creatinine Crossmatch 02/26/18 02/26/18 02/26/18 05:12 05:43 07:39 WBC 23.7 H RBC 3.27 L Hgb 9.3 L Hct 31.1 L MCV 95 H MCHC 30 L RDW 17.4 H Seg Neuts % (Manual) Lymphocytes % (Manual) 2.0 L Monocytes % (Manual) Nucleated RBC % 1.0 H Seg Neutrophils # Man 16.1 H Lymphocytes # (Manual) 0.5 L Monocytes # (Manual) 1.2 H PT INR POC ABG pH POC ABG pCO2 19.5 L POC ABG pO2 72 L Sodium Potassium Chloride Carbon Dioxide BUN Creatinine Glucose POC Glucose Lactic Acid 8.80 H* Calcium Phosphorus Magnesium Total Bilirubin AST C-Reactive Protein Albumin Urine Creatinine Crossmatch 02/26/18 02/26/18 02/26/18 07:39 12:06 13:08 WBC RBC Hgb Hct MCV MCHC RDW Seg Neuts % (Manual) Lymphocytes % (Manual) Monocytes % (Manual) Nucleated RBC % Seg Neutrophils # Man Lymphocytes # (Manual) Monocytes # (Manual) PT INR POC ABG pH POC ABG pCO2 27.8 L POC ABG pO2 168 H Sodium 155 H Potassium Chloride 114.2 H Carbon Dioxide 14 L BUN 120 H Creatinine 4.6 H Glucose 108 H POC Glucose Lactic Acid Calcium 7.7 L Phosphorus Magnesium Total Bilirubin 4.50 H AST 105 H C-Reactive Protein Albumin 2.4 L Urine Creatinine 38.6 H Crossmatch 02/26/18 02/26/18 02/26/18 18:41 20:50 20:50 WBC RBC Hgb Hct MCV MCHC RDW Seg Neuts % (Manual) Lymphocytes % (Manual) Monocytes % (Manual) Nucleated RBC % Seg Neutrophils # Man Lymphocytes # (Manual) Monocytes # (Manual) PT 21.5 H INR 1.75 H POC ABG pH POC ABG pCO2 POC ABG pO2 Sodium Potassium Chloride Carbon Dioxide BUN Creatinine Glucose POC Glucose 135 H Lactic Acid Calcium Phosphorus Magnesium Total Bilirubin AST C-Reactive Protein 33.90 H Albumin Urine Creatinine Crossmatch 02/27/18 02/27/18 02/27/18 03:39 04:56 04:56 WBC 20.1 H RBC 2.92 L Hgb 8.4 L Hct 27.5 L MCV MCHC 31 L RDW 17.1 H Seg Neuts % (Manual) 92.0 H Lymphocytes % (Manual) 3.0 L Monocytes % (Manual) Nucleated RBC % Seg Neutrophils # Man 18.5 H Lymphocytes # (Manual) 0.6 L Monocytes # (Manual) PT INR POC ABG pH 7.453 H POC ABG pCO2 27.2 L POC ABG pO2 Sodium 149 H Potassium Chloride 113.1 H Carbon Dioxide 18 L BUN 103 H Creatinine 3.8 H Glucose 120 H POC Glucose Lactic Acid Calcium 7.8 L Phosphorus Magnesium Total Bilirubin AST C-Reactive Protein Albumin Urine Creatinine Crossmatch 02/27/18 02/27/18 02/27/18 12:37 12:45 17:51 WBC RBC Hgb Hct MCV MCHC RDW Seg Neuts % (Manual) Lymphocytes % (Manual) Monocytes % (Manual) Nucleated RBC % Seg Neutrophils # Man Lymphocytes # (Manual) Monocytes # (Manual) PT INR POC ABG pH POC ABG pCO2 POC ABG pO2 Sodium Potassium Chloride Carbon Dioxide BUN Creatinine Glucose POC Glucose 169 H 133 H Lactic Acid 2.90 H* Calcium Phosphorus Magnesium Total Bilirubin AST C-Reactive Protein Albumin Urine Creatinine Crossmatch 02/28/18 02/28/18 02/28/18 00:23 05:00 05:02 WBC RBC Hgb Hct MCV MCHC RDW Seg Neuts % (Manual) Lymphocytes % (Manual) Monocytes % (Manual) Nucleated RBC % Seg Neutrophils # Man Lymphocytes # (Manual) Monocytes # (Manual) PT INR POC ABG pH POC ABG pCO2 POC ABG pO2 Sodium Potassium Chloride Carbon Dioxide BUN Creatinine Glucose POC Glucose 161 H 116 H Lactic Acid 2.70 H* Calcium Phosphorus Magnesium Total Bilirubin AST C-Reactive Protein Albumin Urine Creatinine Crossmatch 02/28/18 02/28/18 02/28/18 05:28 07:04 09:00 WBC 22.3 H RBC 2.63 L Hgb 7.6 L Hct 24.1 L MCV MCHC 31 L RDW 17.4 H Seg Neuts % (Manual) 84.0 H Lymphocytes % (Manual) 8.0 L Monocytes % (Manual) Nucleated RBC % Seg Neutrophils # Man 18.7 H Lymphocytes # (Manual) Monocytes # (Manual) 1.1 H PT INR POC ABG pH 7.477 H POC ABG pCO2 24.6 L POC ABG pO2 57 L Sodium Potassium Chloride Carbon Dioxide BUN Creatinine Glucose POC Glucose Lactic Acid 3.10 H* Calcium Phosphorus Magnesium Total Bilirubin AST C-Reactive Protein Albumin Urine Creatinine Crossmatch 02/28/18 02/28/18 02/28/18 09:00 11:36 17:10 WBC RBC Hgb Hct MCV MCHC RDW Seg Neuts % (Manual) Lymphocytes % (Manual) Monocytes % (Manual) Nucleated RBC % Seg Neutrophils # Man Lymphocytes # (Manual) Monocytes # (Manual) PT INR POC ABG pH POC ABG pCO2 POC ABG pO2 Sodium Potassium 3.3 L 3.5 L Chloride Carbon Dioxide 21 L 19 L BUN 76 H 69 H Creatinine 2.8 H 2.5 H Glucose 104 H 124 H POC Glucose 107 H Lactic Acid Calcium 7.6 L 7.3 L Phosphorus 1.50 L Magnesium Total Bilirubin AST C-Reactive Protein Albumin Urine Creatinine Crossmatch 02/28/18 02/28/18 03/01/18 17:36 23:40 06:25 WBC RBC Hgb Hct MCV MCHC RDW Seg Neuts % (Manual) Lymphocytes % (Manual) Monocytes % (Manual) Nucleated RBC % Seg Neutrophils # Man Lymphocytes # (Manual) Monocytes # (Manual) PT INR POC ABG pH 7.542 H POC ABG pCO2 23.3 L POC ABG pO2 62 L Sodium Potassium Chloride Carbon Dioxide BUN Creatinine Glucose POC Glucose 151 H 111 H Lactic Acid Calcium Phosphorus Magnesium Total Bilirubin AST C-Reactive Protein Albumin Urine Creatinine Crossmatch 03/01/18 03/01/18 03/02/18 10:00 12:12 05:21 WBC RBC Hgb Hct MCV MCHC RDW Seg Neuts % (Manual) Lymphocytes % (Manual) Monocytes % (Manual) Nucleated RBC % Seg Neutrophils # Man Lymphocytes # (Manual) Monocytes # (Manual) PT INR POC ABG pH 7.473 H POC ABG pCO2 21.5 L POC ABG pO2 79 L Sodium Potassium 3.5 L Chloride Carbon Dioxide 18 L BUN 66 H Creatinine 2.8 H Glucose 103 H POC Glucose 176 H Lactic Acid Calcium 7.5 L Phosphorus Magnesium Total Bilirubin AST C-Reactive Protein Albumin Urine Creatinine Crossmatch 03/02/18 03/02/18 03/02/18 06:00 06:00 11:47 WBC 18.2 H RBC 2.43 L Hgb 7.2 L Hct 22.6 L MCV MCHC RDW 17.6 H Seg Neuts % (Manual) Lymphocytes % (Manual) Monocytes % (Manual) Nucleated RBC % Seg Neutrophils # Man Lymphocytes # (Manual) Monocytes # (Manual) PT INR POC ABG pH POC ABG pCO2 POC ABG pO2 Sodium Potassium Chloride Carbon Dioxide 17 L BUN 68 H Creatinine 3.1 H Glucose 106 H POC Glucose 136 H Lactic Acid Calcium 7.2 L Phosphorus Magnesium Total Bilirubin AST C-Reactive Protein Albumin Urine Creatinine Crossmatch 03/02/18 03/03/18 03/03/18 17:35 00:54 03:38 WBC RBC Hgb Hct MCV MCHC RDW Seg Neuts % (Manual) Lymphocytes % (Manual) Monocytes % (Manual) Nucleated RBC % Seg Neutrophils # Man Lymphocytes # (Manual) Monocytes # (Manual) PT INR POC ABG pH 7.451 H POC ABG pCO2 20.5 L POC ABG pO2 Sodium Potassium Chloride Carbon Dioxide BUN Creatinine Glucose POC Glucose 109 H 131 H Lactic Acid Calcium Phosphorus Magnesium Total Bilirubin AST C-Reactive Protein Albumin Urine Creatinine Crossmatch 03/03/18 03/03/18 03/03/18 04:30 06:15 06:15 WBC 21.1 H RBC 2.20 L Hgb 6.3 L Hct 20.8 L MCV 95 H MCHC 30 L RDW 17.8 H Seg Neuts % (Manual) 71.0 H Lymphocytes % (Manual) 8.0 L Monocytes % (Manual) Nucleated RBC % Seg Neutrophils # Man 15.0 H Lymphocytes # (Manual) Monocytes # (Manual) 1.3 H PT INR POC ABG pH POC ABG pCO2 POC ABG pO2 Sodium 130 L D Potassium Chloride 96.4 L Carbon Dioxide 14 L BUN 69 H Creatinine 3.1 H Glucose POC Glucose Lactic Acid Calcium 7.0 L Phosphorus 5.10 H Magnesium Total Bilirubin AST C-Reactive Protein Albumin Urine Creatinine Crossmatch 03/03/18 03/03/18 03/03/18 08:37 09:38 12:13 WBC RBC Hgb Hct MCV MCHC RDW Seg Neuts % (Manual) Lymphocytes % (Manual) Monocytes % (Manual) Nucleated RBC % Seg Neutrophils # Man Lymphocytes # (Manual) Monocytes # (Manual) PT INR POC ABG pH POC ABG pCO2 23.8 L POC ABG pO2 156 H Sodium Potassium Chloride Carbon Dioxide BUN Creatinine Glucose POC Glucose 119 H Lactic Acid Calcium Phosphorus Magnesium Total Bilirubin AST C-Reactive Protein Albumin Urine Creatinine Crossmatch See Detail 03/03/18 03/03/18 03/04/18 12:37 18:05 00:59 WBC RBC Hgb Hct MCV MCHC RDW Seg Neuts % (Manual) Lymphocytes % (Manual) Monocytes % (Manual) Nucleated RBC % Seg Neutrophils # Man Lymphocytes # (Manual) Monocytes # (Manual) PT INR POC ABG pH POC ABG pCO2 POC ABG pO2 Sodium Potassium Chloride Carbon Dioxide BUN Creatinine Glucose POC Glucose 154 H 159 H Lactic Acid Calcium Phosphorus Magnesium 1.40 L Total Bilirubin AST C-Reactive Protein Albumin Urine Creatinine Crossmatch 03/04/18 03/04/18 03/04/18 04:27 05:30 05:30 WBC 22.6 H RBC 2.46 L Hgb 7.1 L Hct 21.7 L MCV MCHC RDW 17.2 H Seg Neuts % (Manual) 84.0 H Lymphocytes % (Manual) 5.0 L Monocytes % (Manual) Nucleated RBC % Seg Neutrophils # Man 19.0 H Lymphocytes # (Manual) 1.1 L Monocytes # (Manual) PT INR POC ABG pH 7.486 H POC ABG pCO2 24.8 L POC ABG pO2 Sodium 135 L Potassium Chloride 96.2 L Carbon Dioxide 19 L BUN 69 H Creatinine 3.1 H Glucose 121 H POC Glucose Lactic Acid Calcium 7.1 L Phosphorus Magnesium Total Bilirubin AST C-Reactive Protein 19.80 H Albumin Urine Creatinine Crossmatch 03/04/18 03/04/18 03/04/18 05:38 11:47 17:53 WBC RBC Hgb Hct MCV MCHC RDW Seg Neuts % (Manual) Lymphocytes % (Manual) Monocytes % (Manual) Nucleated RBC % Seg Neutrophils # Man Lymphocytes # (Manual) Monocytes # (Manual) PT INR POC ABG pH POC ABG pCO2 POC ABG pO2 Sodium Potassium Chloride Carbon Dioxide BUN Creatinine Glucose POC Glucose 134 H 109 H 113 H Lactic Acid Calcium Phosphorus Magnesium Total Bilirubin AST C-Reactive Protein Albumin Urine Creatinine Crossmatch 03/05/18 03/05/18 03/05/18 00:22 05:15 05:15 WBC 24.3 H RBC 2.29 L Hgb 6.8 L Hct 20.3 L MCV MCHC RDW 16.7 H Seg Neuts % (Manual) 88.0 H Lymphocytes % (Manual) 3.0 L Monocytes % (Manual) Nucleated RBC % Seg Neutrophils # Man 21.4 H Lymphocytes # (Manual) 0.7 L Monocytes # (Manual) PT INR POC ABG pH POC ABG pCO2 POC ABG pO2 Sodium 132 L Potassium Chloride 91.2 L Carbon Dioxide BUN 69 H Creatinine 3.3 H Glucose POC Glucose 113 H Lactic Acid Calcium 6.9 L Phosphorus Magnesium Total Bilirubin AST C-Reactive Protein Albumin Urine Creatinine Crossmatch 03/05/18 03/05/18 03/05/18 05:36 11:51 16:00 WBC RBC Hgb Hct MCV MCHC RDW Seg Neuts % (Manual) Lymphocytes % (Manual) Monocytes % (Manual) Nucleated RBC % Seg Neutrophils # Man Lymphocytes # (Manual) Monocytes # (Manual) PT INR POC ABG pH 7.519 H POC ABG pCO2 27.0 L POC ABG pO2 68 L Sodium Potassium Chloride Carbon Dioxide BUN Creatinine Glucose POC Glucose 118 H 131 H Lactic Acid Calcium Phosphorus Magnesium Total Bilirubin AST C-Reactive Protein Albumin Urine Creatinine Crossmatch 03/06/18 03/06/18 03/06/18 00:00 01:27 04:44 WBC 24.5 H RBC 2.90 L Hgb 8.5 L Hct 25.8 L MCV MCHC RDW 16.3 H Seg Neuts % (Manual) 96.0 H Lymphocytes % (Manual) 1.5 L Monocytes % (Manual) Nucleated RBC % 1.0 H Seg Neutrophils # Man 23.5 H Lymphocytes # (Manual) 0.4 L Monocytes # (Manual) PT INR POC ABG pH POC ABG pCO2 POC ABG pO2 Sodium Potassium Chloride 92.9 L Carbon Dioxide BUN 67 H Creatinine 3.4 H Glucose POC Glucose 127 H Lactic Acid Calcium 7.2 L Phosphorus Magnesium Total Bilirubin AST C-Reactive Protein Albumin Urine Creatinine Crossmatch 03/06/18 03/06/18 03/06/18 04:54 05:54 12:08 WBC RBC Hgb Hct MCV MCHC RDW Seg Neuts % (Manual) Lymphocytes % (Manual) Monocytes % (Manual) Nucleated RBC % Seg Neutrophils # Man Lymphocytes # (Manual) Monocytes # (Manual) PT INR POC ABG pH 7.551 H POC ABG pCO2 29.5 L POC ABG pO2 57 L Sodium Potassium Chloride Carbon Dioxide BUN Creatinine Glucose POC Glucose 108 H 123 H Lactic Acid Calcium Phosphorus Magnesium Total Bilirubin AST C-Reactive Protein Albumin Urine Creatinine Crossmatch 03/06/18 03/07/18 03/07/18 21:16 05:00 05:00 WBC 17.5 H RBC 2.41 L Hgb 7.3 L Hct 21.5 L MCV MCHC RDW 16.6 H Seg Neuts % (Manual) 97.0 H Lymphocytes % (Manual) 1.0 L Monocytes % (Manual) Nucleated RBC % Seg Neutrophils # Man 17.0 H Lymphocytes # (Manual) 0.2 L Monocytes # (Manual) PT INR POC ABG pH 7.639 H POC ABG pCO2 25.3 L POC ABG pO2 Sodium Potassium Chloride 90.6 L Carbon Dioxide BUN 65 H Creatinine 3.4 H Glucose POC Glucose Lactic Acid Calcium 7.3 L Phosphorus Magnesium Total Bilirubin AST C-Reactive Protein Albumin Urine Creatinine Crossmatch 03/07/18 03/08/18 06:32 04:30 WBC 13.9 H RBC 2.36 L Hgb 7.1 L Hct 21.2 L MCV MCHC RDW 16.5 H Seg Neuts % (Manual) 91.0 H Lymphocytes % (Manual) 2.0 L Monocytes % (Manual) Nucleated RBC % Seg Neutrophils # Man 12.6 H Lymphocytes # (Manual) 0.3 L Monocytes # (Manual) PT INR POC ABG pH POC ABG pCO2 POC ABG pO2 Sodium Potassium Chloride Carbon Dioxide BUN Creatinine Glucose POC Glucose 121 H Lactic Acid Calcium Phosphorus Magnesium Total Bilirubin AST C-Reactive Protein Albumin Urine Creatinine Crossmatch Allied health notes reviewed: nursing
--- NOTE | 2018-03-08 12:32 | XRay Report ---
AP CHEST: HISTORY: Desaturations, acute respiratory failure The endotracheal tube terminates 4.3 cm superior to the jose luis. Left arm PICC terminates in the lower SVC. Bilateral lower lung infiltrates have improved slightly since the CT dated 03/05/18. The upper lung zones remain clear. No large pleural effusion or pneumothorax is detected. IMPRESSION: Mild improvement in the bilateral lung infiltrates as described.
[2018-03-08] MEDS: BABY ASPIRIN PO SCH (13:23)
[2018-03-09] MEDS: HumuLIN R SUB-Q SCH ×4 (00:03→17:56)
[2018-03-09] MEDS: DUONEB *Not for PRN Use IH SCH ×4 (00:27→23:24)
[2018-03-09] MEDS: PFIZERPEN 4 MIL.UNITS in NACL 0.9% 50 ML IV SCH ×4 (00:55→17:57)
[2018-03-09] MEDS: KEPPRA FEEDTUBE SCH ×2 (05:30→19:15)
[2018-03-09] MEDS: CLEOCIN 600 MG/50 mL 600 MG/50 ML BAG IV SCH ×3 (05:33→22:44)
[2018-03-09 06:03] LABS: Hemoglobin 6.9 gm/dl (11.8-15.2); Red Blood Count 2.31 M/mm3 (3.65-5.03)
[2018-03-09 06:04] LABS: Basophils # (Auto) 0.1 K/mm3 (0.0-0.1); Basophils % (Auto) 0.6 % (0.0-1.8); Eosinophils # (Auto) 0.1 K/mm3 (0.0-0.4); Hematocrit 20.9 % (35.5-45.6); Lymphocytes # (Auto) 0.7 K/mm3 (1.2-5.4); Lymphocytes % (Auto) 5.5 % (13.4-35.0); Mean Corpuscular HGB Conc 33 % (32-34); Mean Corpuscular Hemoglobin 30 pg (28-32); Mean Corpuscular Volume 90 fl (84-94); Monocytes # (Auto) 0.5 K/mm3 (0.0-0.8); Monocytes % (Auto) 3.7 % (0.0-7.3); Platelet Count 183 K/mm3 (140-440); Red Cell Distribution Width 16.7 % (13.2-15.2)
--- NOTE | 2018-03-09 09:37 | Progress Note ---
Assessment and Plan Impression: * Nonoliguric acute kidney injury secondary to prerenal azotemia/ATN due to dehydration vs sepsis --Baseline SCr 1.6-1.8mg/dL * Acute hypoxic respiratory failure * Sepsis * Asp PNA * HCAP --sputum w/ MRSA, group A beta hemolytic strep * Hypernatremia secondary to dehydration - resolved * Metabolic acidosis secondary to lactic acidosis * CVA with left hemiplegia--Acute Plan: * Continue albumin * follow up crcl--still not collected * if refractory to medical treatment, may need cash application representative, no indication today * Keep MAP>65 * sz likely due to embolic CVA * prn transfusion of pRBC * Replete lytes prn * Vent management per CCM * Broad spectrum abx * Dose medications for renal function * Avoid potential nephrotoxins Subjective Date of service: 03/09/18 Principal diagnosis: Acute Hypoxemic Resp Failure; Severe Sepsis; Aspiration Pneumonai (HCAP) Interval history: resting well in bed today Objective - Exam Narrative Exam: General appearance: intubated EENT: ATNC, other (ETT in place) Respiratory: Present: Other (coarse breath sounds) Cardiology: tachycardia, S1S2 Gastrointestinal: normal, no distended Integumentary: no rash, warm and dry Musculoskeletal: other (no edema) - Vital Signs Vital signs: Vital Signs - 12hr 03/08/18 03/08/18 03/08/18 21:45 22:00 22:15 Temperature Pulse Rate 121 H 124 H 119 H Pulse Rate [ Anterior Bilateral Throughout] Pulse Rate [ Left Dorsalis Pedis] Respiratory 33 H 34 H 32 H Rate Respiratory Rate [Anterior Bilateral Throughout] Blood Pressure 101/70 107/75 111/70 O2 Sat by Pulse 90 93 99 Oximetry 03/08/18 03/08/18 03/08/18 22:30 22:36 22:45 Temperature Pulse Rate 120 H 119 H 118 H Pulse Rate [ Anterior Bilateral Throughout] Pulse Rate [ Left Dorsalis Pedis] Respiratory 24 35 H 24 Rate Respiratory Rate [Anterior Bilateral Throughout] Blood Pressure 101/70 116/75 84/55 O2 Sat by Pulse 96 99 96 Oximetry 03/08/18 03/08/18 03/08/18 23:00 23:15 23:30 Temperature Pulse Rate 116 H 114 H 115 H Pulse Rate [ Anterior Bilateral Throughout] Pulse Rate [ Left Dorsalis Pedis] Respiratory 25 H 19 27 H Rate Respiratory Rate [Anterior Bilateral Throughout] Blood Pressure 84/56 86/50 85/56 O2 Sat by Pulse 98 96 99 Oximetry 03/08/18 03/09/18 03/09/18 23:45 00:00 00:15 Temperature 99.0 F Pulse Rate 117 H 116 H 116 H Pulse Rate [ Anterior Bilateral Throughout] Pulse Rate [ 116 H Left Dorsalis Pedis] Respiratory 28 H 28 H 25 H Rate Respiratory Rate [Anterior Bilateral Throughout] Blood Pressure 92/59 93/56 89/59 O2 Sat by Pulse 100 100 98 Oximetry 03/09/18 03/09/18 03/09/18 00:28 00:30 00:37 Temperature Pulse Rate 118 H 116 H Pulse Rate [ 117 H 118 H Anterior Bilateral Throughout] Pulse Rate [ Left Dorsalis Pedis] Respiratory 13 Rate Respiratory 26 H 30 H Rate [Anterior Bilateral Throughout] Blood Pressure 89/59 101/62 O2 Sat by Pulse 100 99 Oximetry 03/09/18 03/09/18 03/09/18 00:45 01:00 01:15 Temperature Pulse Rate 114 H 115 H 115 H Pulse Rate [ Anterior Bilateral Throughout] Pulse Rate [ Left Dorsalis Pedis] Respiratory 28 H 26 H 26 H Rate Respiratory Rate [Anterior Bilateral Throughout] Blood Pressure 96/54 100/62 96/65 O2 Sat by Pulse 99 99 100 Oximetry 03/09/18 03/09/18 03/09/18 01:30 01:45 02:00 Temperature Pulse Rate 114 H 119 H 125 H Pulse Rate [ Anterior Bilateral Throughout] Pulse Rate [ Left Dorsalis Pedis] Respiratory 28 H 30 H 34 H Rate Respiratory Rate [Anterior Bilateral Throughout] Blood Pressure 90/55 101/62 118/79 O2 Sat by Pulse 100 97 90 Oximetry 03/09/18 03/09/18 03/09/18 02:15 02:30 02:45 Temperature Pulse Rate 117 H 115 H 114 H Pulse Rate [ Anterior Bilateral Throughout] Pulse Rate [ Left Dorsalis Pedis] Respiratory 29 H 27 H 26 H Rate Respiratory Rate [Anterior Bilateral Throughout] Blood Pressure 103/62 91/53 93/52 O2 Sat by Pulse 94 93 Oximetry 03/09/18 03/09/18 03/09/18 03:00 03:15 03:30 Temperature Pulse Rate 118 H 115 H 114 H Pulse Rate [ Anterior Bilateral Throughout] Pulse Rate [ Left Dorsalis Pedis] Respiratory 30 H 28 H 28 H Rate Respiratory Rate [Anterior Bilateral Throughout] Blood Pressure 113/74 96/60 100/61 O2 Sat by Pulse 93 93 97 Oximetry 03/09/18 03/09/18 04:00 04:50 Temperature 99.1 F Pulse Rate 116 H Pulse Rate [ Anterior Bilateral Throughout] Pulse Rate [ Left Dorsalis Pedis] Respiratory Rate Respiratory Rate [Anterior Bilateral Throughout] Blood Pressure 97/59 O2 Sat by Pulse 98 Oximetry - Lab 03/09/18 05:45 03/07/18 05:00 Most recent lab results Calcium 7.3 mg/dL (8.4-10.2) L 03/07/18 05:00 Phosphorus 5.10 mg/dL (2.5-4.5) H 03/03/18 04:30 Magnesium 1.40 mg/dL (1.7-2.3) L 03/03/18 12:37 Urine Creatinine 38.6 mg/dL (0.1-20.0) H 02/26/18 13:08 Urine Sodium 67 mmol/L 02/26/18 13:08
[2018-03-09] MEDS: ZYVOX PO SCH ×2 (11:12→22:47)
[2018-03-09] MEDS: PEPCID PO SCH (11:12)
[2018-03-09] MEDS: BABY ASPIRIN PO SCH (11:12)
[2018-03-09] MEDS: ALBURX 25% (ALBUMIN) IV SCH ×2 (11:13→22:45)
[2018-03-09] MEDS: HEPARIN SUB-Q SCH ×2 (11:13→22:47)
[2018-03-09] MEDS: fentaNYL DRIP Premix 2,000 MCG/100 ML BAG IV SCH ×2 (11:52→20:28)
[2018-03-09] MEDS: SODIUM CHLORIDE FLUSH SYRINGE 10 ML IV SCH ×2 (11:56→22:46)
[2018-03-09 12:55] LABS: Calcium 6.1 mg/dL (8.4-10.2)
[2018-03-09 16:08] LABS: Creatinine 24 Hour,Urine 0.3 (0.8-2.8); Creatinine,Urine 69.2 mg/dL (0.1-20.0)
--- NOTE | 2018-03-09 17:03 | Progress Note ---
Assessment and Plan Assessment and plan: 72-year-old male with history of cerebrovascular accident hemiplegia. Alzheimer's and nonverbal from [facility] sent for altered mental state. Since yesterday and high fever and increasing shortness of breath and respiratory distress. Patient's temperature was 103.2F in the initial evaluation in the emergency room. Patient was also severely tachypneic with respiratory rate of 40. Sudden onset. No exacerbating or relieving factors. Patient is a resident of retirement facility. Patient continued in the ICU started on broad septurm abx and later de-escalated to Zyvox for MRSA and had rapid response was called following worsening symptoms with chest compression ensuing. CT brain shows New CVA/SUBACUTE CVA, with again noted with mengioma, Neurology consulted and EEG, with extensive family conversation. Nephrology was also on board with notation of Nonoliguric acute kidney injury secondary to prerenal azotemia/ATN due to dehydration vs sepsis and Metabolic acidosis secondary to lactic acidosis among others but with no indication for [employer] at the time. ID/foot specialist following 03/03: Went into cardiopulmonary arrest. Resuscitated according to ACLS protocol and commenced on IV Levophed for hypotension 03/05: Pt had recurrent seizure over the night and CT head showed right MCA acute /subacute stroke and calcified meningioma in the left frontal area Acute right MCA stroke * Neurology NOTED * EEG, WITH anti-seizure meds Septic Shock * follow cultures * Continue Zyvox and Pen G and Clinda * continue isolation per ID * on pressors Anemia * Transfuse as needed Cardiopulmonary arrest * Resuscitated according to ACLS protocol * Commenced on Levophed drip for hypotension Acute Hypoxemic Respiratory Failure * Continues on mechanical ventilation >96HRS * Pulmonary following. * Aspiration precautions * AWAITING TRACH PLACEMENT * MRSA on sputum * Continue nebs, now off solumedrol Aspiration Pneumonia- Multilobar * Continue abx as noted above * Cultures showing MRSA, GAS * PCN AND CLINDAMYCIN ADDED * CONTACT ISOATION Acute ON CHRONIC Encephalopathy * patient with alzhimers disease Acute Kidney injury * Likely secondary to ATN * improved Sacral Pressure ulcer * wound care consult Hypernatermia * Resolving Diabetes. * Continue sliding scale coverage History of Alzheimer dementia. BPH * Continue Finasterid Hyperlipidemia * continue statin CVA PER HX-WITH LEFT SIDED HEMIPLEGIA * Complete immobility due to frailty per documentation ANEMIA * Of chronic disease, monitor closely s/p 3 units PRBC DVT/GI prophy Discussed with son. Poor prognosis Plan for LTAC eval CONTINUE RESTRAINT FOR SAFETY The high probability of a clinically significant, sudden or life threatening deterioration of the [PULMONARY] system(s) required my full and direct attention , intervention and personal management. The aggregate critical care time was [45 ] minutes. This time is in addition to time spent performing reported procedures but includes the following: [X] Data Review and interpretation [X] Patient assessment and monitoring of vital signs [X] Documentation [X] Medication orders and management History Interval history: Patient seen and examined, remains intubated, opens eyes to verbal stimuli but not following any commands. Still with low bp AND ON LEVOPHED Hospitalist Physical - Physical exam Narrative exam: VITAL SIGNS: Reviewed. GENERAL: The patient appeared Chronically ill, on mechanical ventilation. Vital signs as documented. HEAD: No signs of head trauma. Marked temporal wasting EYES: Pupils are equal. Extraocular motions intact. EARS: Hearing grossly intact. MOUTH: ETT NECK: No adenopathy, no JVD. CHEST: Chest with crackles breath sounds bilaterally bases. CARDIAC: Regular rate and rhythm. S1 and S2, without murmurs, gallops, or rubs. VASCULAR: No Edema. Peripheral pulses normal and equal in all extremities. ABDOMEN: Soft, without detectable tenderness. No sign of distention. No rebound or guarding, and no masses palpated. Bowel Sounds normal. MUSCULOSKELETAL: Extremities without clubbing, cyanosis or edema. NEUROLOGIC EXAM: Awake, but lethargic. Unable to examine. Left sided weakness. focal deficits, severely altered sensorium and nearly unresponsive PSYCHIATRIC: unable to assess. SKIN: Pressure Ulcer - Constitutional Vitals: Temp Pulse Resp BP Pulse Ox 97.7 F 114 H 22 106/79 95 03/09/18 12:00 03/09/18 16:45 03/09/18 16:45 03/09/18 16:45 03/09/18 16:45 General appearance: Present: no acute distress, well-nourished Results - Labs CBC & Chem 7: 03/10/18 06:55 03/10/18 06:55 Labs: Laboratory Last Values WBC 12.9 K/mm3 (4.5-11.0) H 03/09/18 05:45 RBC 2.31 M/mm3 (3.65-5.03) L 03/09/18 05:45 Hgb 6.9 gm/dl (11.8-15.2) L 03/09/18 05:45 Hct 20.9 % (35.5-45.6) L 03/09/18 05:45 MCV 90 fl (84-94) 03/09/18 05:45 MCH 30 pg (28-32) 03/09/18 05:45 MCHC 33 % (32-34) 03/09/18 05:45 RDW 16.7 % (13.2-15.2) H 03/09/18 05:45 Plt Count 183 K/mm3 (140-440) 03/09/18 05:45 Lymph % (Auto) 5.5 % (13.4-35.0) L 03/09/18 05:45 [place] % (Auto) 3.7 % (0.0-7.3) 03/09/18 05:45 Eos % (Auto) 1.0 % (0.0-4.3) 03/09/18 05:45 Baso % (Auto) 0.6 % (0.0-1.8) 03/09/18 05:45 Lymph # 0.7 K/mm3 (1.2-5.4) L 03/09/18 05:45 [place] # 0.5 K/mm3 (0.0-0.8) 03/09/18 05:45 Eos # 0.1 K/mm3 (0.0-0.4) 03/09/18 05:45 Baso # 0.1 K/mm3 (0.0-0.1) 03/09/18 05:45 Add Manual Diff Complete 03/08/18 04:30 Total Counted 100 03/08/18 04:30 Seg Neutrophils % 89.2 % (40.0-70.0) H 03/09/18 05:45 Seg Neuts % (Manual) 91.0 % (40.0-70.0) H 03/08/18 04:30 Band Neutrophils % 1.0 % 03/08/18 04:30 Lymphocytes % (Manual) 2.0 % (13.4-35.0) L 03/08/18 04:30 Reactive Lymphs % (Man) 0 % 03/08/18 04:30 Monocytes % (Manual) 4.0 % (0.0-7.3) 03/08/18 04:30 Eosinophils % (Manual) 0 % (0.0-4.3) 03/08/18 04:30 Basophils % (Manual) 1.0 % (0.0-1.8) 03/08/18 04:30 Metamyelocytes % 0 % 03/08/18 04:30 Myelocytes % 1.0 % 03/08/18 04:30 Promyelocytes % 0 % 03/08/18 04:30 Blast Cells % 0 % 03/08/18 04:30 Nucleated RBC % Not Reportable 03/08/18 04:30 Seg Neutrophils # 11.5 K/mm3 (1.8-7.7) H 03/09/18 05:45 Seg Neutrophils # Man 12.6 K/mm3 (1.8-7.7) H 03/08/18 04:30 Band Neutrophils # 0.1 K/mm3 03/08/18 04:30 Lymphocytes # (Manual) 0.3 K/mm3 (1.2-5.4) L 03/08/18 04:30 Abs React Lymphs (Man) 0.0 K/mm3 03/08/18 04:30 Monocytes # (Manual) 0.6 K/mm3 (0.0-0.8) 03/08/18 04:30 Eosinophils # (Manual) 0.0 K/mm3 (0.0-0.4) 03/08/18 04:30 Basophils # (Manual) 0.1 K/mm3 (0.0-0.1) 03/08/18 04:30 Metamyelocytes # 0.0 K/mm3 03/08/18 04:30 Myelocytes # 0.1 K/mm3 03/08/18 04:30 Promyelocytes # 0.0 K/mm3 03/08/18 04:30 Blast Cells # 0.0 K/mm3 03/08/18 04:30 WBC Morphology Not Reportable 03/08/18 04:30 Hypersegmented Neuts Not Reportable 03/08/18 04:30 Hyposegmented Neuts Not Reportable 03/08/18 04:30 Hypogranular Neuts Not Reportable 03/08/18 04:30 Smudge Cells Not Reportable 03/08/18 04:30 Toxic Granulation Not Reportable 03/08/18 04:30 Toxic Vacuolation Not Reportable 03/08/18 04:30 Dohle Bodies Not Reportable 03/08/18 04:30 Pelger-Huet Anomaly Not Reportable 03/08/18 04:30 Erwin Rods Not Reportable 03/08/18 04:30 Platelet Estimate Consistent w auto 03/08/18 04:30 Clumped Platelets Not Reportable 03/08/18 04:30 Plt Clumps, EDTA Not Reportable 03/08/18 04:30 Large Platelets Not Reportable 03/08/18 04:30 Giant Platelets Not Reportable 03/08/18 04:30 Platelet Satelliting Not Reportable 03/08/18 04:30 Plt Morphology Comment Not Reportable 03/08/18 04:30 RBC Morphology Not Reportable 03/08/18 04:30 Dimorphic RBCs Not Reportable 03/08/18 04:30 Polychromasia Not Reportable 03/08/18 04:30 Hypochromasia Not Reportable 03/08/18 04:30 Poikilocytosis Not Reportable 03/08/18 04:30 Anisocytosis Not Reportable 03/08/18 04:30 Microcytosis Not Reportable 03/08/18 04:30 Macrocytosis Not Reportable 03/08/18 04:30 Spherocytes Not Reportable 03/08/18 04:30 Pappenheimer Bodies Not Reportable 03/08/18 04:30 Sickle Cells Not Reportable 03/08/18 04:30 Target Cells 1+ 03/08/18 04:30 Tear Drop Cells Not Reportable 03/08/18 04:30 Ovalocytes Not Reportable 03/08/18 04:30 Stomatocytes Few 02/28/18 09:00 Helmet Cells Not Reportable 03/08/18 04:30 [place] Bodies Not Reportable 03/08/18 04:30 [place] Rings Not Reportable 03/08/18 04:30 [place] Cells Not Reportable 03/08/18 04:30 Bite Cells Not Reportable 03/08/18 04:30 Crenated Cell Not Reportable 03/08/18 04:30 Elliptocytes Not Reportable 03/08/18 04:30 Acanthocytes (Spur) Not Reportable 03/08/18 04:30 Rouleaux Not Reportable 03/08/18 04:30 Hemoglobin C Crystals Not Reportable 03/08/18 04:30 Schistocytes Not Reportable 03/08/18 04:30 Malaria parasites Not Reportable 03/08/18 04:30 Aric Bodies Not Reportable 03/08/18 04:30 Hem Pathologist Commnt No 03/08/18 04:30 PT 21.5 Sec. (12.2-14.9) H 02/26/18 20:50 INR 1.75 (0.87-1.13) H 02/26/18 20:50 POC ABG pH 7.498 (7.35-7.45) H 03/08/18 11:54 POC ABG pCO2 30.2 (35-45) L 03/08/18 11:54 POC ABG pO2 44 (80-105) L 03/08/18 11:54 POC ABG HCO3 23.4 03/08/18 11:54 POC ABG Total CO2 24 03/08/18 11:54 POC ABG O2 Sat 85 03/08/18 11:54 POC ABG Base Excess 0 03/08/18 11:54 VBG pH 7.406 (7.320-7.420) 02/25/18 23:15 FiO2 30 % 03/08/18 11:54 Sodium 137 mmol/L (137-145) 03/09/18 12:00 Potassium 3.3 mmol/L (3.6-5.0) L 03/09/18 12:00 Chloride 82.2 mmol/L (98-107) L 03/09/18 12:00 Carbon Dioxide 19 mmol/L (22-30) L D 03/09/18 12:00 Anion Gap 39 mmol/L 03/09/18 12:00 BUN 62 mg/dL (9-20) H 03/09/18 12:00 Creatinine 3.0 mg/dL (0.8-1.5) H 03/09/18 12:00 Estimated GFR 25 ml/min 03/09/18 12:00 BUN/Creatinine Ratio 21 % 03/09/18 12:00 Glucose 77 mg/dL (75-100) 03/09/18 12:00 POC Glucose 122 (70-105) H 03/09/18 06:13 Lactic Acid 3.10 mmol/L (0.7-2.0) H* 02/28/18 07:04 Calcium 6.1 mg/dL (8.4-10.2) L D 03/09/18 12:00 Phosphorus 5.10 mg/dL (2.5-4.5) H 03/03/18 04:30 Magnesium 1.40 mg/dL (1.7-2.3) L 03/03/18 12:37 Total Bilirubin 4.50 mg/dL (0.1-1.2) H 02/26/18 07:39 AST 105 units/L (5-40) H 02/26/18 07:39 ALT 48 units/L (7-56) 02/26/18 07:39 Alkaline Phosphatase 109 units/L (35-129) 02/26/18 07:39 C-Reactive Protein 19.80 mg/dL (0.00-1.30) H 03/04/18 05:30 Total Protein 6.4 g/dL (6.3-8.2) 02/26/18 07:39 Albumin 2.4 g/dL (3.9-5) L 02/26/18 07:39 Albumin/Globulin Ratio 0.6 % 02/26/18 07:39 Lipase 35 units/L (13-60) 02/26/18 02:58 TSH 2.670 mlU/mL (0.270-4.200) 02/26/18 00:10 Free T4 1.26 ng/dL (0.76-1.46) 02/26/18 00:10 Urine Color [place] (Yellow) 02/26/18 00:32 Urine Turbidity Hazy (Clear) 02/26/18 00:32 Urine pH 5.0 (5.0-7.0) 02/26/18 00:32 Ur Specific [place] 1.015 (1.003-1.030) 02/26/18 00:32 Urine Protein <15 mg/dl mg/dL (Negative) 02/26/18 00:32 Urine Glucose (UA) Neg mg/dL (Negative) 02/26/18 00:32 Urine Ketones Neg mg/dL (Negative) 02/26/18 00:32 Urine Blood Neg (Negative) 02/26/18 00:32 Urine Nitrite Neg (Negative) 02/26/18 00:32 Urine Bilirubin Neg (Negative) 02/26/18 00:32 Urine Urobilinogen 4.0 mg/dL (<2.0) 02/26/18 00:32 Ur Leukocyte Esterase Neg (Negative) 02/26/18 00:32 Urine WBC (Auto) 1.0 /HPF (0.0-6.0) 02/26/18 00:32 Urine RBC (Auto) 1.0 /HPF (0.0-6.0) 02/26/18 00:32 U Epithel Cells (Auto) 1.0 /HPF (0-13.0) 02/26/18 00:32 Amorphous Crystals 3+ 02/26/18 00:32 Hyaline Casts 4 /LPF 02/26/18 00:32 Urine Mucus Few /HPF 02/26/18 00:32 Urine Total Volume 490 03/09/18 13:30 Urine Creatinine 69.2 mg/dL (0.1-20.0) H 03/09/18 13:30 Ur Creatinine 24 Hour 0.3 (0.8-2.8) L 03/09/18 13:30 Urine Sodium 67 mmol/L 02/26/18 13:08 Blood Type A POSITIVE 03/03/18 08:37 Antibody Screen Negative 03/03/18 08:37 Crossmatch See Detail 03/03/18 08:37
--- NOTE | 2018-03-09 17:06 | Progress Note ---
Assessment and Plan Severe sepsis with septic shock. Aspiration pneumonia, healthcare associated. Acute hypoxemic respiratory failure on MVS Acute/subacute right MCA stroke Acute on chronic encephalopathy. Acute on chronic kidney injury. Anemia. Hypernatremia. Metabolic acidosis/lactic acidosis. Leukocytosis History of hypertension. History of diabetes. History of Alzheimer dementia. 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 The aggregate critical care time was [35] minutes without overlap. Time includes spent on; [x] Data Review and interpretation [x] Patient assessment and monitoring of vital signs [x] Documentation [x] Medication orders and management Subjective Date of service: 03/09/18 Principal diagnosis: Acute Hypoxemic Resp Failure; Severe Sepsis; Aspiration Pneumonai (HCAP) Interval history: Patient is seen today for: Acute Hypoxemic Resp Failure; Severe Sepsis; Aspiration Pneumonia(HCAP), DIANNA Seen and examined. Vitals, labs, medications, chart and imaging reviewed. Overnight events reviewed. Discussed with RT and RN. 24hour events reviewed; nursing and respiratory care staff consulted; remains on MVS; azotemia is persistent and pulmonary edema is worsening: anarsaca, with worsening work of breathing, increasing FIO2 requirements: AMS is persistent; no gross bleeding:No new issues otherwise Discussed in IDT rounds Objective Vital Signs - 12hr 03/09/18 03/09/18 03/09/18 05:15 05:30 05:45 Temperature Pulse Rate 67 63 79 Pulse Rate [ Anterior Bilateral Throughout] Pulse Rate [ Left Dorsalis Pedis] Respiratory Rate Respiratory Rate [Anterior Bilateral Throughout] Blood Pressure 129/84 128/74 123/69 O2 Sat by Pulse 94 97 95 Oximetry 03/09/18 03/09/18 03/09/18 06:00 06:15 06:30 Temperature Pulse Rate 95 H 83 95 H Pulse Rate [ Anterior Bilateral Throughout] Pulse Rate [ Left Dorsalis Pedis] Respiratory Rate Respiratory Rate [Anterior Bilateral Throughout] Blood Pressure 123/69 102/69 104/62 O2 Sat by Pulse 100 98 97 Oximetry 03/09/18 03/09/18 03/09/18 06:45 07:00 07:15 Temperature Pulse Rate 89 72 92 H Pulse Rate [ Anterior Bilateral Throughout] Pulse Rate [ Left Dorsalis Pedis] Respiratory Rate Respiratory Rate [Anterior Bilateral Throughout] Blood Pressure 113/72 112/69 114/77 O2 Sat by Pulse 97 95 93 Oximetry 03/09/18 03/09/18 03/09/18 07:31 07:45 08:00 Temperature 98.5 F Pulse Rate 84 69 105 H Pulse Rate [ Anterior Bilateral Throughout] Pulse Rate [ 108 H Left Dorsalis Pedis] Respiratory Rate Respiratory Rate [Anterior Bilateral Throughout] Blood Pressure 141/103 126/80 94/50 O2 Sat by Pulse 90 91 95 Oximetry 03/09/18 03/09/18 03/09/18 08:15 08:30 08:45 Temperature Pulse Rate 58 L 117 H Pulse Rate [ Anterior Bilateral Throughout] Pulse Rate [ Left Dorsalis Pedis] Respiratory Rate Respiratory Rate [Anterior Bilateral Throughout] Blood Pressure 127/85 100/63 104/69 O2 Sat by Pulse 94 95 96 Oximetry 03/09/18 03/09/18 03/09/18 09:00 09:15 09:31 Temperature Pulse Rate 93 H 85 Pulse Rate [ Anterior Bilateral Throughout] Pulse Rate [ Left Dorsalis Pedis] Respiratory Rate Respiratory Rate [Anterior Bilateral Throughout] Blood Pressure 101/62 136/96 174/107 O2 Sat by Pulse 95 91 84 Oximetry 03/09/18 03/09/18 03/09/18 09:45 10:00 10:15 Temperature Pulse Rate 100 H 85 114 H Pulse Rate [ Anterior Bilateral Throughout] Pulse Rate [ Left Dorsalis Pedis] Respiratory 34 H 35 H Rate Respiratory Rate [Anterior Bilateral Throughout] Blood Pressure 137/81 129/83 132/88 O2 Sat by Pulse 89 89 91 Oximetry 03/09/18 03/09/18 03/09/18 10:30 10:34 10:45 Temperature Pulse Rate 100 H 114 H Pulse Rate [ 100 H Anterior Bilateral Throughout] Pulse Rate [ Left Dorsalis Pedis] Respiratory 36 H 29 H Rate Respiratory 37 H Rate [Anterior Bilateral Throughout] Blood Pressure 117/73 112/62 O2 Sat by Pulse 90 90 Oximetry 03/09/18 03/09/18 03/09/18 11:00 11:05 11:15 Temperature Pulse Rate 113 H 103 H Pulse Rate [ 107 H Anterior Bilateral Throughout] Pulse Rate [ Left Dorsalis Pedis] Respiratory 26 H 23 Rate Respiratory 34 H Rate [Anterior Bilateral Throughout] Blood Pressure 105/62 103/61 O2 Sat by Pulse 93 94 Oximetry 03/09/18 03/09/18 03/09/18 11:30 11:45 12:00 Temperature 97.7 F Pulse Rate 103 H 96 H 116 H Pulse Rate [ Anterior Bilateral Throughout] Pulse Rate [ 98 H Left Dorsalis Pedis] Respiratory 29 H 29 H 21 Rate Respiratory Rate [Anterior Bilateral Throughout] Blood Pressure 105/73 101/74 103/61 O2 Sat by Pulse 94 94 95 Oximetry 03/09/18 03/09/18 03/09/18 12:15 12:30 12:45 Temperature Pulse Rate 114 H 112 H 110 H Pulse Rate [ Anterior Bilateral Throughout] Pulse Rate [ Left Dorsalis Pedis] Respiratory 20 21 20 Rate Respiratory Rate [Anterior Bilateral Throughout] Blood Pressure 107/62 106/62 105/59 O2 Sat by Pulse 95 95 Oximetry 03/09/18 03/09/18 03/09/18 13:00 13:15 13:30 Temperature Pulse Rate 108 H 109 H 111 H Pulse Rate [ Anterior Bilateral Throughout] Pulse Rate [ Left Dorsalis Pedis] Respiratory 22 21 18 Rate Respiratory Rate [Anterior Bilateral Throughout] Blood Pressure 105/59 104/59 104/59 O2 Sat by Pulse 96 95 95 Oximetry 03/09/18 03/09/18 03/09/18 13:45 14:00 14:15 Temperature Pulse Rate 110 H 110 H 109 H Pulse Rate [ Anterior Bilateral Throughout] Pulse Rate [ Left Dorsalis Pedis] Respiratory 16 22 21 Rate Respiratory Rate [Anterior Bilateral Throughout] Blood Pressure 109/56 104/60 103/57 O2 Sat by Pulse 95 95 Oximetry 03/09/18 03/09/18 03/09/18 14:30 14:45 15:00 Temperature Pulse Rate 110 H 114 H 111 H Pulse Rate [ Anterior Bilateral Throughout] Pulse Rate [ Left Dorsalis Pedis] Respiratory 20 31 H 22 Rate Respiratory Rate [Anterior Bilateral Throughout] Blood Pressure 106/47 104/60 109/75 O2 Sat by Pulse 94 96 91 Oximetry 03/09/18 03/09/18 03/09/18 15:03 15:15 15:30 Temperature Pulse Rate 110 H 109 H 108 H Pulse Rate [ Anterior Bilateral Throughout] Pulse Rate [ Left Dorsalis Pedis] Respiratory 19 20 Rate Respiratory Rate [Anterior Bilateral Throughout] Blood Pressure 105/52 110/67 108/59 O2 Sat by Pulse 95 94 Oximetry 03/09/18 03/09/18 03/09/18 15:45 16:00 16:15 Temperature Pulse Rate 109 H 109 H 112 H Pulse Rate [ Anterior Bilateral Throughout] Pulse Rate [ Left Dorsalis Pedis] Respiratory 20 20 21 Rate Respiratory Rate [Anterior Bilateral Throughout] Blood Pressure 108/64 96/66 102/63 O2 Sat by Pulse 93 94 94 Oximetry 03/09/18 03/09/18 16:30 16:45 Temperature Pulse Rate 112 H 114 H Pulse Rate [ Anterior Bilateral Throughout] Pulse Rate [ Left Dorsalis Pedis] Respiratory 19 22 Rate Respiratory Rate [Anterior Bilateral Throughout] Blood Pressure 106/69 106/79 O2 Sat by Pulse 92 95 Oximetry Constitutional: appears uncomfortable, other (elderly looking AAM, normocephalic and atraumativ on MVS with increased respiratory effort) Eyes: non-icteric ENT: oropharynx moist, other (ETT 24 cm TERESA) Neck: supple, no lymphadenopathy, no JVD, other (no thyromegaly) Effort: very labored Ascultation: Bilateral: diminished breath sounds, rales Percussion: Bilateral: not dull Cardiovascular: regular rate and rhythm, other (No R/M, S1,S2) Gastrointestinal: normoactive bowel sounds, soft, non-tender, non-distended, other (+ PEG; No HSM, scrotal edema) Integumentary: other (poor turgor) Extremities: no cyanosis, pulses normal, no ischemia or petechiae, anasarca Neurologic: pupils equal and round, unable to assess Psychiatric: other (unable to assess re: encephalopathy) CBC and BMP: 03/10/18 20:02 03/11/18 14:25 ABG, PT/INR, D-dimer: ABG POC ABG pH 7.498 (7.35-7.45) H 03/08/18 11:54 POC ABG pCO2 30.2 (35-45) L 03/08/18 11:54 POC ABG pO2 44 (80-105) L 03/08/18 11:54 POC ABG HCO3 23.4 03/08/18 11:54 POC ABG Total CO2 24 03/08/18 11:54 POC ABG O2 Sat 85 03/08/18 11:54 PT/INR, D-dimer PT 21.5 Sec. (12.2-14.9) H 02/26/18 20:50 INR 1.75 (0.87-1.13) H 02/26/18 20:50 Abnormal lab findings: Abnormal Labs 02/25/18 02/25/18 02/25/18 23:15 23:15 23:15 WBC 12.3 H RBC 3.56 L Hgb 10.2 L Hct 33.7 L MCV 95 H MCHC 30 L RDW 17.7 H Lymph % (Auto) Lymph # Seg Neutrophils % Seg Neuts % (Manual) 35.0 L Lymphocytes % (Manual) 13.0 L Monocytes % (Manual) 8.0 H Nucleated RBC % Seg Neutrophils # Seg Neutrophils # Man Lymphocytes # (Manual) Monocytes # (Manual) 1.0 H PT 20.3 H INR 1.63 H POC ABG pH POC ABG pCO2 POC ABG pO2 Sodium 152 H Potassium Chloride 108.7 H Carbon Dioxide 18 L BUN 136 H Creatinine 5.2 H Glucose POC Glucose Lactic Acid Calcium 8.0 L Phosphorus Magnesium Total Bilirubin 4.50 H AST 83 H C-Reactive Protein Albumin 2.7 L Urine Creatinine Ur Creatinine 24 Hour Crossmatch 02/25/18 02/25/18 02/26/18 23:15 23:30 03:06 WBC RBC Hgb Hct MCV MCHC RDW Lymph % (Auto) Lymph # Seg Neutrophils % Seg Neuts % (Manual) Lymphocytes % (Manual) Monocytes % (Manual) Nucleated RBC % Seg Neutrophils # Seg Neutrophils # Man Lymphocytes # (Manual) Monocytes # (Manual) PT INR POC ABG pH POC ABG pCO2 25.2 L POC ABG pO2 69 L Sodium Potassium Chloride Carbon Dioxide BUN Creatinine Glucose POC Glucose Lactic Acid 7.00 H* 9.70 H* Calcium Phosphorus Magnesium Total Bilirubin AST C-Reactive Protein Albumin Urine Creatinine Ur Creatinine 24 Hour Crossmatch 02/26/18 02/26/18 02/26/18 05:12 05:43 07:39 WBC 23.7 H RBC 3.27 L Hgb 9.3 L Hct 31.1 L MCV 95 H MCHC 30 L RDW 17.4 H Lymph % (Auto) Lymph # Seg Neutrophils % Seg Neuts % (Manual) Lymphocytes % (Manual) 2.0 L Monocytes % (Manual) Nucleated RBC % 1.0 H Seg Neutrophils # Seg Neutrophils # Man 16.1 H Lymphocytes # (Manual) 0.5 L Monocytes # (Manual) 1.2 H PT INR POC ABG pH POC ABG pCO2 19.5 L POC ABG pO2 72 L Sodium Potassium Chloride Carbon Dioxide BUN Creatinine Glucose POC Glucose Lactic Acid 8.80 H* Calcium Phosphorus Magnesium Total Bilirubin AST C-Reactive Protein Albumin Urine Creatinine Ur Creatinine 24 Hour Crossmatch 02/26/18 02/26/18 02/26/18 07:39 12:06 13:08 WBC RBC Hgb Hct MCV MCHC RDW Lymph % (Auto) Lymph # Seg Neutrophils % Seg Neuts % (Manual) Lymphocytes % (Manual) Monocytes % (Manual) Nucleated RBC % Seg Neutrophils # Seg Neutrophils # Man Lymphocytes # (Manual) Monocytes # (Manual) PT INR POC ABG pH POC ABG pCO2 27.8 L POC ABG pO2 168 H Sodium 155 H Potassium Chloride 114.2 H Carbon Dioxide 14 L BUN 120 H Creatinine 4.6 H Glucose 108 H POC Glucose Lactic Acid Calcium 7.7 L Phosphorus Magnesium Total Bilirubin 4.50 H AST 105 H C-Reactive Protein Albumin 2.4 L Urine Creatinine 38.6 H Ur Creatinine 24 Hour Crossmatch 02/26/18 02/26/18 02/26/18 18:41 20:50 20:50 WBC RBC Hgb Hct MCV MCHC RDW Lymph % (Auto) Lymph # Seg Neutrophils % Seg Neuts % (Manual) Lymphocytes % (Manual) Monocytes % (Manual) Nucleated RBC % Seg Neutrophils # Seg Neutrophils # Man Lymphocytes # (Manual) Monocytes # (Manual) PT 21.5 H INR 1.75 H POC ABG pH POC ABG pCO2 POC ABG pO2 Sodium Potassium Chloride Carbon Dioxide BUN Creatinine Glucose POC Glucose 135 H Lactic Acid Calcium Phosphorus Magnesium Total Bilirubin AST C-Reactive Protein 33.90 H Albumin Urine Creatinine Ur Creatinine 24 Hour Crossmatch 02/27/18 02/27/18 02/27/18 03:39 04:56 04:56 WBC 20.1 H RBC 2.92 L Hgb 8.4 L Hct 27.5 L MCV MCHC 31 L RDW 17.1 H Lymph % (Auto) Lymph # Seg Neutrophils % Seg Neuts % (Manual) 92.0 H Lymphocytes % (Manual) 3.0 L Monocytes % (Manual) Nucleated RBC % Seg Neutrophils # Seg Neutrophils # Man 18.5 H Lymphocytes # (Manual) 0.6 L Monocytes # (Manual) PT INR POC ABG pH 7.453 H POC ABG pCO2 27.2 L POC ABG pO2 Sodium 149 H Potassium Chloride 113.1 H Carbon Dioxide 18 L BUN 103 H Creatinine 3.8 H Glucose 120 H POC Glucose Lactic Acid Calcium 7.8 L Phosphorus Magnesium Total Bilirubin AST C-Reactive Protein Albumin Urine Creatinine Ur Creatinine 24 Hour Crossmatch 02/27/18 02/27/18 02/27/18 12:37 12:45 17:51 WBC RBC Hgb Hct MCV MCHC RDW Lymph % (Auto) Lymph # Seg Neutrophils % Seg Neuts % (Manual) Lymphocytes % (Manual) Monocytes % (Manual) Nucleated RBC % Seg Neutrophils # Seg Neutrophils # Man Lymphocytes # (Manual) Monocytes # (Manual) PT INR POC ABG pH POC ABG pCO2 POC ABG pO2 Sodium Potassium Chloride Carbon Dioxide BUN Creatinine Glucose POC Glucose 169 H 133 H Lactic Acid 2.90 H* Calcium Phosphorus Magnesium Total Bilirubin AST C-Reactive Protein Albumin Urine Creatinine Ur Creatinine 24 Hour Crossmatch 02/28/18 02/28/18 02/28/18 00:23 05:00 05:02 WBC RBC Hgb Hct MCV MCHC RDW Lymph % (Auto) Lymph # Seg Neutrophils % Seg Neuts % (Manual) Lymphocytes % (Manual) Monocytes % (Manual) Nucleated RBC % Seg Neutrophils # Seg Neutrophils # Man Lymphocytes # (Manual) Monocytes # (Manual) PT INR POC ABG pH POC ABG pCO2 POC ABG pO2 Sodium Potassium Chloride Carbon Dioxide BUN Creatinine Glucose POC Glucose 161 H 116 H Lactic Acid 2.70 H* Calcium Phosphorus Magnesium Total Bilirubin AST C-Reactive Protein Albumin Urine Creatinine Ur Creatinine 24 Hour Crossmatch 02/28/18 02/28/18 02/28/18 05:28 07:04 09:00 WBC 22.3 H RBC 2.63 L Hgb 7.6 L Hct 24.1 L MCV MCHC 31 L RDW 17.4 H Lymph % (Auto) Lymph # Seg Neutrophils % Seg Neuts % (Manual) 84.0 H Lymphocytes % (Manual) 8.0 L Monocytes % (Manual) Nucleated RBC % Seg Neutrophils # Seg Neutrophils # Man 18.7 H Lymphocytes # (Manual) Monocytes # (Manual) 1.1 H PT INR POC ABG pH 7.477 H POC ABG pCO2 24.6 L POC ABG pO2 57 L Sodium Potassium Chloride Carbon Dioxide BUN Creatinine Glucose POC Glucose Lactic Acid 3.10 H* Calcium Phosphorus Magnesium Total Bilirubin AST C-Reactive Protein Albumin Urine Creatinine Ur Creatinine 24 Hour Crossmatch 02/28/18 02/28/18 02/28/18 09:00 11:36 17:10 WBC RBC Hgb Hct MCV MCHC RDW Lymph % (Auto) Lymph # Seg Neutrophils % Seg Neuts % (Manual) Lymphocytes % (Manual) Monocytes % (Manual) Nucleated RBC % Seg Neutrophils # Seg Neutrophils # Man Lymphocytes # (Manual) Monocytes # (Manual) PT INR POC ABG pH POC ABG pCO2 POC ABG pO2 Sodium Potassium 3.3 L 3.5 L Chloride Carbon Dioxide 21 L 19 L BUN 76 H 69 H Creatinine 2.8 H 2.5 H Glucose 104 H 124 H POC Glucose 107 H Lactic Acid Calcium 7.6 L 7.3 L Phosphorus 1.50 L Magnesium Total Bilirubin AST C-Reactive Protein Albumin Urine Creatinine Ur Creatinine 24 Hour Crossmatch 02/28/18 02/28/18 03/01/18 17:36 23:40 06:25 WBC RBC Hgb Hct MCV MCHC RDW Lymph % (Auto) Lymph # Seg Neutrophils % Seg Neuts % (Manual) Lymphocytes % (Manual) Monocytes % (Manual) Nucleated RBC % Seg Neutrophils # Seg Neutrophils # Man Lymphocytes # (Manual) Monocytes # (Manual) PT INR POC ABG pH 7.542 H POC ABG pCO2 23.3 L POC ABG pO2 62 L Sodium Potassium Chloride Carbon Dioxide BUN Creatinine Glucose POC Glucose 151 H 111 H Lactic Acid Calcium Phosphorus Magnesium Total Bilirubin AST C-Reactive Protein Albumin Urine Creatinine Ur Creatinine 24 Hour Crossmatch 03/01/18 03/01/18 03/02/18 10:00 12:12 05:21 WBC RBC Hgb Hct MCV MCHC RDW Lymph % (Auto) Lymph # Seg Neutrophils % Seg Neuts % (Manual) Lymphocytes % (Manual) Monocytes % (Manual) Nucleated RBC % Seg Neutrophils # Seg Neutrophils # Man Lymphocytes # (Manual) Monocytes # (Manual) PT INR POC ABG pH 7.473 H POC ABG pCO2 21.5 L POC ABG pO2 79 L Sodium Potassium 3.5 L Chloride Carbon Dioxide 18 L BUN 66 H Creatinine 2.8 H Glucose 103 H POC Glucose 176 H Lactic Acid Calcium 7.5 L Phosphorus Magnesium Total Bilirubin AST C-Reactive Protein Albumin Urine Creatinine Ur Creatinine 24 Hour Crossmatch 03/02/18 03/02/18 03/02/18 06:00 06:00 11:47 WBC 18.2 H RBC 2.43 L Hgb 7.2 L Hct 22.6 L MCV MCHC RDW 17.6 H Lymph % (Auto) Lymph # Seg Neutrophils % Seg Neuts % (Manual) Lymphocytes % (Manual) Monocytes % (Manual) Nucleated RBC % Seg Neutrophils # Seg Neutrophils # Man Lymphocytes # (Manual) Monocytes # (Manual) PT INR POC ABG pH POC ABG pCO2 POC ABG pO2 Sodium Potassium Chloride Carbon Dioxide 17 L BUN 68 H Creatinine 3.1 H Glucose 106 H POC Glucose 136 H Lactic Acid Calcium 7.2 L Phosphorus Magnesium Total Bilirubin AST C-Reactive Protein Albumin Urine Creatinine Ur Creatinine 24 Hour Crossmatch 03/02/18 03/03/18 03/03/18 17:35 00:54 03:38 WBC RBC Hgb Hct MCV MCHC RDW Lymph % (Auto) Lymph # Seg Neutrophils % Seg Neuts % (Manual) Lymphocytes % (Manual) Monocytes % (Manual) Nucleated RBC % Seg Neutrophils # Seg Neutrophils # Man Lymphocytes # (Manual) Monocytes # (Manual) PT INR POC ABG pH 7.451 H POC ABG pCO2 20.5 L POC ABG pO2 Sodium Potassium Chloride Carbon Dioxide BUN Creatinine Glucose POC Glucose 109 H 131 H Lactic Acid Calcium Phosphorus Magnesium Total Bilirubin AST C-Reactive Protein Albumin Urine Creatinine Ur Creatinine 24 Hour Crossmatch 03/03/18 03/03/18 03/03/18 04:30 06:15 06:15 WBC 21.1 H RBC 2.20 L Hgb 6.3 L Hct 20.8 L MCV 95 H MCHC 30 L RDW 17.8 H Lymph % (Auto) Lymph # Seg Neutrophils % Seg Neuts % (Manual) 71.0 H Lymphocytes % (Manual) 8.0 L Monocytes % (Manual) Nucleated RBC % Seg Neutrophils # Seg Neutrophils # Man 15.0 H Lymphocytes # (Manual) Monocytes # (Manual) 1.3 H PT INR POC ABG pH POC ABG pCO2 POC ABG pO2 Sodium 130 L D Potassium Chloride 96.4 L Carbon Dioxide 14 L BUN 69 H Creatinine 3.1 H Glucose POC Glucose Lactic Acid Calcium 7.0 L Phosphorus 5.10 H Magnesium Total Bilirubin AST C-Reactive Protein Albumin Urine Creatinine Ur Creatinine 24 Hour Crossmatch 03/03/18 03/03/18 03/03/18 08:37 09:38 12:13 WBC RBC Hgb Hct MCV MCHC RDW Lymph % (Auto) Lymph # Seg Neutrophils % Seg Neuts % (Manual) Lymphocytes % (Manual) Monocytes % (Manual) Nucleated RBC % Seg Neutrophils # Seg Neutrophils # Man Lymphocytes # (Manual) Monocytes # (Manual) PT INR POC ABG pH POC ABG pCO2 23.8 L POC ABG pO2 156 H Sodium Potassium Chloride Carbon Dioxide BUN Creatinine Glucose POC Glucose 119 H Lactic Acid Calcium Phosphorus Magnesium Total Bilirubin AST C-Reactive Protein Albumin Urine Creatinine Ur Creatinine 24 Hour Crossmatch See Detail 03/03/18 03/03/18 03/04/18 12:37 18:05 00:59 WBC RBC Hgb Hct MCV MCHC RDW Lymph % (Auto) Lymph # Seg Neutrophils % Seg Neuts % (Manual) Lymphocytes % (Manual) Monocytes % (Manual) Nucleated RBC % Seg Neutrophils # Seg Neutrophils # Man Lymphocytes # (Manual) Monocytes # (Manual) PT INR POC ABG pH POC ABG pCO2 POC ABG pO2 Sodium Potassium Chloride Carbon Dioxide BUN Creatinine Glucose POC Glucose 154 H 159 H Lactic Acid Calcium Phosphorus Magnesium 1.40 L Total Bilirubin AST C-Reactive Protein Albumin Urine Creatinine Ur Creatinine 24 Hour Crossmatch 03/04/18 03/04/18 03/04/18 04:27 05:30 05:30 WBC 22.6 H RBC 2.46 L Hgb 7.1 L Hct 21.7 L MCV MCHC RDW 17.2 H Lymph % (Auto) Lymph # Seg Neutrophils % Seg Neuts % (Manual) 84.0 H Lymphocytes % (Manual) 5.0 L Monocytes % (Manual) Nucleated RBC % Seg Neutrophils # Seg Neutrophils # Man 19.0 H Lymphocytes # (Manual) 1.1 L Monocytes # (Manual) PT INR POC ABG pH 7.486 H POC ABG pCO2 24.8 L POC ABG pO2 Sodium 135 L Potassium Chloride 96.2 L Carbon Dioxide 19 L BUN 69 H Creatinine 3.1 H Glucose 121 H POC Glucose Lactic Acid Calcium 7.1 L Phosphorus Magnesium Total Bilirubin AST C-Reactive Protein 19.80 H Albumin Urine Creatinine Ur Creatinine 24 Hour Crossmatch 03/04/18 03/04/18 03/04/18 05:38 11:47 17:53 WBC RBC Hgb Hct MCV MCHC RDW Lymph % (Auto) Lymph # Seg Neutrophils % Seg Neuts % (Manual) Lymphocytes % (Manual) Monocytes % (Manual) Nucleated RBC % Seg Neutrophils # Seg Neutrophils # Man Lymphocytes # (Manual) Monocytes # (Manual) PT INR POC ABG pH POC ABG pCO2 POC ABG pO2 Sodium Potassium Chloride Carbon Dioxide BUN Creatinine Glucose POC Glucose 134 H 109 H 113 H Lactic Acid Calcium Phosphorus Magnesium Total Bilirubin AST C-Reactive Protein Albumin Urine Creatinine Ur Creatinine 24 Hour Crossmatch 03/05/18 03/05/18 03/05/18 00:22 05:15 05:15 WBC 24.3 H RBC 2.29 L Hgb 6.8 L Hct 20.3 L MCV MCHC RDW 16.7 H Lymph % (Auto) Lymph # Seg Neutrophils % Seg Neuts % (Manual) 88.0 H Lymphocytes % (Manual) 3.0 L Monocytes % (Manual) Nucleated RBC % Seg Neutrophils # Seg Neutrophils # Man 21.4 H Lymphocytes # (Manual) 0.7 L Monocytes # (Manual) PT INR POC ABG pH POC ABG pCO2 POC ABG pO2 Sodium 132 L Potassium Chloride 91.2 L Carbon Dioxide BUN 69 H Creatinine 3.3 H Glucose POC Glucose 113 H Lactic Acid Calcium 6.9 L Phosphorus Magnesium Total Bilirubin AST C-Reactive Protein Albumin Urine Creatinine Ur Creatinine 24 Hour Crossmatch 03/05/18 03/05/18 03/05/18 05:36 11:51 16:00 WBC RBC Hgb Hct MCV MCHC RDW Lymph % (Auto) Lymph # Seg Neutrophils % Seg Neuts % (Manual) Lymphocytes % (Manual) Monocytes % (Manual) Nucleated RBC % Seg Neutrophils # Seg Neutrophils # Man Lymphocytes # (Manual) Monocytes # (Manual) PT INR POC ABG pH 7.519 H POC ABG pCO2 27.0 L POC ABG pO2 68 L Sodium Potassium Chloride Carbon Dioxide BUN Creatinine Glucose POC Glucose 118 H 131 H Lactic Acid Calcium Phosphorus Magnesium Total Bilirubin AST C-Reactive Protein Albumin Urine Creatinine Ur Creatinine 24 Hour Crossmatch 03/06/18 03/06/18 03/06/18 00:00 01:27 04:44 WBC 24.5 H RBC 2.90 L Hgb 8.5 L Hct 25.8 L MCV MCHC RDW 16.3 H Lymph % (Auto) Lymph # Seg Neutrophils % Seg Neuts % (Manual) 96.0 H Lymphocytes % (Manual) 1.5 L Monocytes % (Manual) Nucleated RBC % 1.0 H Seg Neutrophils # Seg Neutrophils # Man 23.5 H Lymphocytes # (Manual) 0.4 L Monocytes # (Manual) PT INR POC ABG pH POC ABG pCO2 POC ABG pO2 Sodium Potassium Chloride 92.9 L Carbon Dioxide BUN 67 H Creatinine 3.4 H Glucose POC Glucose 127 H Lactic Acid Calcium 7.2 L Phosphorus Magnesium Total Bilirubin AST C-Reactive Protein Albumin Urine Creatinine Ur Creatinine 24 Hour Crossmatch 03/06/18 03/06/18 03/06/18 04:54 05:54 12:08 WBC RBC Hgb Hct MCV MCHC RDW Lymph % (Auto) Lymph # Seg Neutrophils % Seg Neuts % (Manual) Lymphocytes % (Manual) Monocytes % (Manual) Nucleated RBC % Seg Neutrophils # Seg Neutrophils # Man Lymphocytes # (Manual) Monocytes # (Manual) PT INR POC ABG pH 7.551 H POC ABG pCO2 29.5 L POC ABG pO2 57 L Sodium Potassium Chloride Carbon Dioxide BUN Creatinine Glucose POC Glucose 108 H 123 H Lactic Acid Calcium Phosphorus Magnesium Total Bilirubin AST C-Reactive Protein Albumin Urine Creatinine Ur Creatinine 24 Hour Crossmatch 03/06/18 03/07/18 03/07/18 21:16 05:00 05:00 WBC 17.5 H RBC 2.41 L Hgb 7.3 L Hct 21.5 L MCV MCHC RDW 16.6 H Lymph % (Auto) Lymph # Seg Neutrophils % Seg Neuts % (Manual) 97.0 H Lymphocytes % (Manual) 1.0 L Monocytes % (Manual) Nucleated RBC % Seg Neutrophils # Seg Neutrophils # Man 17.0 H Lymphocytes # (Manual) 0.2 L Monocytes # (Manual) PT INR POC ABG pH 7.639 H POC ABG pCO2 25.3 L POC ABG pO2 Sodium Potassium Chloride 90.6 L Carbon Dioxide BUN 65 H Creatinine 3.4 H Glucose POC Glucose Lactic Acid Calcium 7.3 L Phosphorus Magnesium Total Bilirubin AST C-Reactive Protein Albumin Urine Creatinine Ur Creatinine 24 Hour Crossmatch 03/07/18 03/08/18 03/08/18 06:32 04:30 11:54 WBC 13.9 H RBC 2.36 L Hgb 7.1 L Hct 21.2 L MCV MCHC RDW 16.5 H Lymph % (Auto) Lymph # Seg Neutrophils % Seg Neuts % (Manual) 91.0 H Lymphocytes % (Manual) 2.0 L Monocytes % (Manual) Nucleated RBC % Seg Neutrophils # Seg Neutrophils # Man 12.6 H Lymphocytes # (Manual) 0.3 L Monocytes # (Manual) PT INR POC ABG pH 7.498 H POC ABG pCO2 30.2 L POC ABG pO2 44 L Sodium Potassium Chloride Carbon Dioxide BUN Creatinine Glucose POC Glucose 121 H Lactic Acid Calcium Phosphorus Magnesium Total Bilirubin AST C-Reactive Protein Albumin Urine Creatinine Ur Creatinine 24 Hour Crossmatch 03/08/18 03/08/18 03/09/18 18:29 23:52 05:45 WBC 12.9 H RBC 2.31 L Hgb 6.9 L Hct 20.9 L MCV MCHC RDW 16.7 H Lymph % (Auto) 5.5 L Lymph # 0.7 L Seg Neutrophils % 89.2 H Seg Neuts % (Manual) Lymphocytes % (Manual) Monocytes % (Manual) Nucleated RBC % Seg Neutrophils # 11.5 H Seg Neutrophils # Man Lymphocytes # (Manual) Monocytes # (Manual) PT INR POC ABG pH POC ABG pCO2 POC ABG pO2 Sodium Potassium Chloride Carbon Dioxide BUN Creatinine Glucose POC Glucose 106 H 115 H Lactic Acid Calcium Phosphorus Magnesium Total Bilirubin AST C-Reactive Protein Albumin Urine Creatinine Ur Creatinine 24 Hour Crossmatch 03/09/18 03/09/18 03/09/18 06:13 12:00 13:30 WBC RBC Hgb Hct MCV MCHC RDW Lymph % (Auto) Lymph # Seg Neutrophils % Seg Neuts % (Manual) Lymphocytes % (Manual) Monocytes % (Manual) Nucleated RBC % Seg Neutrophils # Seg Neutrophils # Man Lymphocytes # (Manual) Monocytes # (Manual) PT INR POC ABG pH POC ABG pCO2 POC ABG pO2 Sodium Potassium 3.3 L Chloride 82.2 L Carbon Dioxide 19 L D BUN 62 H Creatinine 3.0 H Glucose POC Glucose 122 H Lactic Acid Calcium 6.1 L D Phosphorus Magnesium Total Bilirubin AST C-Reactive Protein Albumin Urine Creatinine 69.2 H Ur Creatinine 24 Hour 0.3 L Crossmatch Chest x-ray: image reviewed Allied health notes reviewed: RT
--- NOTE | 2018-03-09 17:23 | Consultation ---
History of Present Illness Consult date: 03/09/18 Chief complaint: VDRF - History of present illness History of present illness: 72 yo M with hx of CVA who resides at [facility]. He is nonverbal at baseline. He was sent to the hospital for AMS, fever and increasing respiratory distress. He was intubated in the emergency room for increasing tachypnea. He was found to have temp of 103.2 in ER and sepsis not responsive to IVF boluses and he was started on levophed. He is being treated for PNA. He has not been able to be weaned from vent and surgery is consulted for tracheostomy placement. The patient already has a PEG tube. Past History Past Medical History: hypertension, hyperlipidemia, stroke, other (CVA) Past Surgical History: Other (PEG tube) Social history: other (lives at [facility]) Family history: no significant family history Medications and Allergies Allergies Allergy/AdvReac Type Severity Reaction Status Date / Time No Known Allergies Allergy Verified 12/26/14 12:14 Home Medications Medication Instructions Recorded Confirmed Last Taken Type Amlodipine Besylate [Norvasc] 10 mg PO DAILY 12/27/17 02/26/18 Unknown History Finasteride [Proscar] 5 mg PO DAILY 12/27/17 02/26/18 Unknown History HYDROcodone/ACETAMINOPHEN [[place] 1 each PO Q6H PRN #10 tablet 01/04/18 02/26/18 Unknown Rx 5-325 Tablet] Metoprolol [Lopressor TAB] 25 mg PO BID #60 tablet 01/04/18 02/26/18 Unknown Rx hydrALAZINE [Apresoline TAB] 50 mg PO Q8HR #30 tablet 01/04/18 02/26/18 Unknown Rx Acetaminophen 650 mg PO Q6H PRN 02/26/18 02/26/18 Unknown History Apixaban [Eliquis] 2.5 mg PO BID 02/26/18 02/26/18 Unknown History Omeprazole Magnesium [PriLOSEC Otc] 20 mg PO QDAY 02/26/18 02/26/18 Unknown History Torsemide [Demadex] 10 mg PO QDAY 02/26/18 02/26/18 Unknown History Active Meds: Active Medications Acetaminophen (Tylenol) 650 mg SC Q6H PRN PRN Reason: Pain MILD(1-3)/Fever >100.5/GALVIN Acetaminophen (Tylenol) 650 mg FEEDTUBE Q6H PRN PRN Reason: Pain MILD(1-3)/Fever >100.5/GALVIN Last Admin: 03/01/18 10:02 Dose: 650 mg Albumin Human (Alburx 25% (Albumin)) 25 gm IV Q12HR [facility] Last Admin: 03/09/18 11:13 Dose: 25 gm Albuterol/Ipratropium (Duoneb *Not For Prn Use*) 1 ampul IH Q8HRT [facility] Last Admin: 03/09/18 16:36 Dose: Not Given Lipase/Protease/Amylase (Pancreaze Dr 10,500 Unit) 1 each FEEDTUBE PRN PRN PRN Reason: For Clogged Feeding Tube Aspirin (Baby Aspirin) 81 mg PO QDAY [facility] Last Admin: 03/09/18 11:12 Dose: 81 mg Atorvastatin Calcium (Lipitor) 20 mg PO QHS [facility] Last Admin: 03/08/18 06:12 Dose: 20 mg Dextrose (D50w (25gm) Syringe) 50 ml IV PRN PRN PRN Reason: Hypoglycemia Famotidine (Pepcid) 20 mg PO DAILY [facility] Last Admin: 03/09/18 11:12 Dose: 20 mg Heparin Sodium (Porcine) (Heparin) 5,000 unit SUB-Q Q12HR [facility] Last Admin: 03/09/18 11:13 Dose: 5,000 unit Hydrophilic Ointment (Vaseline Lip Therapy) 1 applic TP Q2HR PRN PRN Reason: Dry Lips Last Admin: 02/26/18 16:05 Dose: 1 applic Fentanyl Citrate (Fentanyl Drip Premix) 2,000 mcg in 100 mls @ 3.402 mls/hr IV TITR [facility]; Protocol Last Titration: 03/09/18 12:10 Dose: 2 mcg/kg/hr, 6.804 mls/hr Propofol (Diprivan 10 Mg/Ml) 1,000 mg in 100 mls @ 2.041 mls/hr IV TITR [facility]; Protocol Norepinephrine (Levophed Drip 4 Mg/Ns 250 Ml) 4 mg in 250 mls @ 7.5 mls/hr IV TITR [facility]; Protocol Last Titration: 03/07/18 15:30 Dose: 0 mcg/min, 0 mls/hr Clindamycin HCl (Cleocin 600 Mg/50 Ml) 600 mg in 50 mls @ 100 mls/hr IV Q8HR [facility]; Protocol Stop: 03/10/18 21:59 Last Admin: 03/09/18 14:38 Dose: 100 mls/hr Penicillin G Potassium 4 mil. (units/ Sodium Chloride) 50 mls @ 100 mls/hr IV Q6HR [facility] Stop: 03/10/18 11:59 Last Admin: 03/09/18 11:52 Dose: 100 mls/hr Insulin Human Regular (Humulin R) 0 units SUB-Q Q6HR [facility]; Protocol Last Admin: 03/09/18 12:16 Dose: Not Given Levetiracetam (Keppra) 500 mg FEEDTUBE Q12H [facility] Last Admin: 03/09/18 05:30 Dose: 500 mg Linezolid (Zyvox) 600 mg PO BID [facility] Stop: 03/12/18 23:59 Last Admin: 03/09/18 11:12 Dose: 600 mg Lorazepam (Ativan) 1 mg IV Q4H PRN PRN Reason: Seizures Last Admin: 03/05/18 02:59 Dose: 1 mg Morphine Sulfate (Morphine) 2 mg IV Q4H PRN PRN Reason: Pain, Moderate (4-6) Last Admin: 03/07/18 19:54 Dose: 2 mg Multi-Ingred Cream/Lotion/Oil/Oint (Artificial Tears Ophth Oint) 1 applic OU Q4HR PRN PRN Reason: Dry Eye(s) Last Admin: 02/26/18 14:48 Dose: 1 applic Promethazine HCl (Phenergan) 25 mg SC Q6H PRN PRN Reason: N/V IF NPO AND NO IV ACCESS Quetiapine Fumarate (Seroquel) 100 mg PO BID [facility] Last Admin: 03/09/18 11:13 Dose: 100 mg Simple Syrup (Simple Syrup) 15 ml FEEDTUBE PRN PRN PRN Reason: Hypoglycemia Simple Syrup (Simple Syrup) 30 ml FEEDTUBE PRN PRN PRN Reason: Hypoglycemia Sodium Bicarbonate (Sodium Bicarbonate) 325 mg FEEDTUBE PRN PRN PRN Reason: For Clogged Feeding Tube Sodium Chloride (Sodium Chloride Flush Syringe 10 Ml) 10 ml IV BID [facility] Last Admin: 03/09/18 11:56 Dose: 10 ml Sodium Chloride (Sodium Chloride Flush Syringe 10 Ml) 10 ml IV PRN PRN PRN Reason: LINE FLUSH Last Admin: 03/02/18 01:15 Dose: 10 ml Sodium Chloride (Nacl 0.9% 500 Ml) 1 ml IV DIRECT DERREK Review of Systems ROS unobtainable: due to endotracheal tube, due to mental status Exam Vital Signs Pulse Resp 128 H 16 02/25/18 22:50 02/25/18 22:50 Narrative exam: Gen: Intubated, opens eyes to tactile stimuli ENT: no scleral icterus or conjunctival pallor. ETT in place. Trachea midline. CV: s1, S2+. tachy Resp: on vent Abd: soft, NT, ND. PEG tube in place Ext: 3+ pedal edema b/l : shrestha in place Results - Labs 03/09/18 05:45 03/09/18 12:00 Abnormal lab results 03/08/18 03/08/18 03/09/18 Range/Units 18:29 23:52 05:45 WBC 12.9 H (4.5-11.0) K/mm3 RBC 2.31 L (3.65-5.03) M/mm3 Hgb 6.9 L (11.8-15.2) gm/dl Hct 20.9 L (35.5-45.6) % RDW 16.7 H (13.2-15.2) % Lymph % (Auto) 5.5 L (13.4-35.0) % Lymph # 0.7 L (1.2-5.4) K/mm3 Seg Neutrophils % 89.2 H (40.0-70.0) % Seg Neutrophils # 11.5 H (1.8-7.7) K/mm3 Potassium (3.6-5.0) mmol/L Chloride (98-107) mmol/L Carbon Dioxide (22-30) mmol/L BUN (9-20) mg/dL Creatinine (0.8-1.5) mg/dL POC Glucose 106 H 115 H (70-105) Calcium (8.4-10.2) mg/dL Urine Creatinine (0.1-20.0) mg/dL Ur Creatinine 24 Hour (0.8-2.8) 03/09/18 03/09/18 03/09/18 Range/Units 06:13 12:00 13:30 WBC (4.5-11.0) K/mm3 RBC (3.65-5.03) M/mm3 Hgb (11.8-15.2) gm/dl Hct (35.5-45.6) % RDW (13.2-15.2) % Lymph % (Auto) (13.4-35.0) % Lymph # (1.2-5.4) K/mm3 Seg Neutrophils % (40.0-70.0) % Seg Neutrophils # (1.8-7.7) K/mm3 Potassium 3.3 L (3.6-5.0) mmol/L Chloride 82.2 L (98-107) mmol/L Carbon Dioxide 19 L D (22-30) mmol/L BUN 62 H (9-20) mg/dL Creatinine 3.0 H (0.8-1.5) mg/dL POC Glucose 122 H (70-105) Calcium 6.1 L D (8.4-10.2) mg/dL Urine Creatinine 69.2 H (0.1-20.0) mg/dL Ur Creatinine 24 Hour 0.3 L (0.8-2.8) Diabetes panel 03/09/18 Range/Units 12:00 Sodium 137 (137-145) mmol/L Potassium 3.3 L (3.6-5.0) mmol/L Chloride 82.2 L (98-107) mmol/L Carbon Dioxide 19 L D (22-30) mmol/L BUN 62 H (9-20) mg/dL Creatinine 3.0 H (0.8-1.5) mg/dL Glucose 77 (75-100) mg/dL Calcium 6.1 L D (8.4-10.2) mg/dL Calcium panel 03/09/18 Range/Units 12:00 Calcium 6.1 L D (8.4-10.2) mg/dL Pituitary panel 03/09/18 Range/Units 12:00 Sodium 137 (137-145) mmol/L Potassium 3.3 L (3.6-5.0) mmol/L Chloride 82.2 L (98-107) mmol/L Carbon Dioxide 19 L D (22-30) mmol/L BUN 62 H (9-20) mg/dL Creatinine 3.0 H (0.8-1.5) mg/dL Glucose 77 (75-100) mg/dL Calcium 6.1 L D (8.4-10.2) mg/dL Adrenal panel 03/09/18 Range/Units 12:00 Sodium 137 (137-145) mmol/L Potassium 3.3 L (3.6-5.0) mmol/L Chloride 82.2 L (98-107) mmol/L Carbon Dioxide 19 L D (22-30) mmol/L BUN 62 H (9-20) mg/dL Creatinine 3.0 H (0.8-1.5) mg/dL Glucose 77 (75-100) mg/dL Calcium 6.1 L D (8.4-10.2) mg/dL Assessment and Plan 72 yo M with VDRF, septic shock, PNA Off Levophed Plan: 1. No family at bedside, will call patient's son and discuss tracheostomy placement 2. continue vent management per ICU team 3. Patient scheduled tentatively for March 16 at 2:30 pm which is first OR availability for bedside tracheostomy. Thank you for this consultation, please call with questions or concerns.
[2018-03-09 19:00] LABS: Creatinine,Urine 69.2 mg/dL (0.1-20.0)
[2018-03-10] MEDS: HumuLIN R SUB-Q SCH ×5 (00:10→18:34)
[2018-03-10] MEDS: PFIZERPEN 4 MIL.UNITS in NACL 0.9% 50 ML IV SCH ×2 (01:00→05:27)
[2018-03-10] MEDS: CLEOCIN 600 MG/50 mL 600 MG/50 ML BAG IV SCH ×2 (06:22→13:50)
[2018-03-10] MEDS: KEPPRA FEEDTUBE SCH ×2 (06:22→17:54)
[2018-03-10] MEDS: fentaNYL DRIP Premix 2,000 MCG/100 ML BAG IV SCH ×2 (07:10→14:49)
[2018-03-10] MEDS: DUONEB *Not for PRN Use IH SCH ×3 (07:18→23:07)
[2018-03-10 07:35] LABS: Basophils % (Auto) 0.4 % (0.0-1.8); Eosinophils # (Auto) 0.2 K/mm3 (0.0-0.4); Eosinophils % (Auto) 1.9 % (0.0-4.3); Lymphocytes # (Auto) 0.5 K/mm3 (1.2-5.4); Lymphocytes % (Auto) 4.6 % (13.4-35.0); Mean Corpuscular HGB Conc 34 % (32-34); Mean Corpuscular Hemoglobin 31 pg (28-32); Mean Corpuscular Volume 92 fl (84-94); Monocytes # (Auto) 0.3 K/mm3 (0.0-0.8); Monocytes % (Auto) 3.1 % (0.0-7.3); Platelet Count 159 K/mm3 (140-440); Red Blood Count 1.94 M/mm3 (3.65-5.03); Red Cell Distribution Width 16.6 % (13.2-15.2)
[2018-03-10 07:52] LABS: Calcium 7.6 mg/dL (8.4-10.2)
[2018-03-10 08:06] LABS: Hematocrit 17.8 % (35.5-45.6)
--- NOTE | 2018-03-10 08:09 | Progress Note ---
Assessment and Plan Assessment and plan: 72-year-old male with history of cerebrovascular accident hemiplegia. Alzheimer's and nonverbal from [facility] sent for altered mental state. Since yesterday and high fever and increasing shortness of breath and respiratory distress. Patient's temperature was 103.2F in the initial evaluation in the emergency room. Patient was also severely tachypneic with respiratory rate of 40. Sudden onset. No exacerbating or relieving factors. Patient is a resident of halfway facility. Patient continued in the ICU started on broad septurm abx and later de-escalated to Zyvox for MRSA and had rapid response was called following worsening symptoms with chest compression ensuing. CT brain shows New CVA/SUBACUTE CVA, with again noted with mengioma, Neurology consulted and EEG, with extensive family conversation. Nephrology was also on board with notation of Nonoliguric acute kidney injury secondary to prerenal azotemia/ATN due to dehydration vs sepsis and Metabolic acidosis secondary to lactic acidosis among others but with no indication for SCANNING TECH at the time. ID/route sales specialist following 03/03: Went into cardiopulmonary arrest. Resuscitated according to ACLS protocol and commenced on IV Levophed for hypotension 03/05: Pt had recurrent seizure over the night and CT head showed right MCA acute /subacute stroke and calcified meningioma in the left frontal area Acute right MCA stroke * Neurology pending consulted and input noted * EEG, WITH anti-seizure meds Septic Shock * follow cultures * Continue Zyvox and Pen G and Clinda * continue isolation per ID * off pressors Anemia * Transfuse as needed * will give 2 units today Cardiopulmonary arrest * Resuscitated according to ACLS protocol * Commenced on Levophed drip for hypotension Acute Hypoxemic Respiratory Failure * Continues on mechanical ventilation >96HRS * Pulmonary following. * Aspiration precautions * Plan for Trach and PEg * MRSA on sputum * Continue nebs, now off solumedrol Aspiration Pneumonia- Multilobar * Continue abx as noted above * Cultures showing MRSA, GAS * PCN AND CLINDAMYCIN ADDED * CONTACT ISOATION Acute ON CHRONIC Encephalopathy * patient with alzhimers disease Acute Kidney injury * Likely secondary to ATN * improved Sacral Pressure ulcer * wound care consult Hypernatermia * Resolving Diabetes. * Continue sliding scale coverage History of Alzheimer dementia. BPH * Continue Finasterid Hyperlipidemia * continue statin CVA PER HX-WITH LEFT SIDED HEMIPLEGIA * Complete immobility due to frailty per documentation ANEMIA * Of chronic disease, monitor closely s/p 3 units PRBC DVT/GI prophy Discussed with son. Poor prognosis Plan for LTAC eval CONTINUE [employer] The high probability of a clinically significant, sudden or life threatening deterioration of the [PULMONARY] system(s) required my full and direct attention , intervention and personal management. The aggregate critical care time was [45 ] minutes. This time is in addition to time spent performing reported procedures but includes the following: [X] Data Review and interpretation [X] Patient assessment and monitoring of vital signs [X] Documentation [X] Medication orders and management History Interval history: Patient seen and examined, remains intubated, opens eyes to verbal stimuli but not following any commands. Still with low bp AND ON LEVOPHED Hospitalist Physical - Physical exam Narrative exam: VITAL SIGNS: Reviewed. GENERAL: The patient appeared Chronically ill, on mechanical ventilation. Vital signs as documented. HEAD: No signs of head trauma. Marked temporal wasting EYES: Pupils are equal. Extraocular motions intact. EARS: Hearing grossly intact. MOUTH: ETT NECK: No adenopathy, no JVD. CHEST: Chest with crackles breath sounds bilaterally bases. CARDIAC: Regular rate and rhythm. S1 and S2, without murmurs, gallops, or rubs. VASCULAR: No Edema. Peripheral pulses normal and equal in all extremities. ABDOMEN: Soft, without detectable tenderness. No sign of distention. No rebound or guarding, and no masses palpated. Bowel Sounds normal. MUSCULOSKELETAL: Extremities without clubbing, cyanosis or edema. NEUROLOGIC EXAM: Awake, but lethargic. Unable to examine. Left sided weakness. focal deficits, severely altered sensorium and nearly unresponsive PSYCHIATRIC: unable to assess. SKIN: Pressure Ulcer - Constitutional Vitals: Temp Pulse Resp BP Pulse Ox 97.8 F 104 H 13 94/55 96 03/10/18 03:16 03/10/18 08:02 03/10/18 08:02 03/10/18 07:12 03/10/18 07:12 General appearance: Present: no acute distress, well-nourished Results - Labs CBC & Chem 7: 03/10/18 20:02 03/11/18 14:25 Labs: Laboratory Last Values WBC 10.2 K/mm3 (4.5-11.0) 03/10/18 06:55 RBC 1.94 M/mm3 (3.65-5.03) L 03/10/18 06:55 Hgb 6.0 gm/dl (11.8-15.2) L 03/10/18 06:55 Hct 17.8 % (35.5-45.6) L* 03/10/18 06:55 MCV 92 fl (84-94) 03/10/18 06:55 MCH 31 pg (28-32) 03/10/18 06:55 MCHC 34 % (32-34) 03/10/18 06:55 RDW 16.6 % (13.2-15.2) H 03/10/18 06:55 Plt Count 159 K/mm3 (140-440) 03/10/18 06:55 Lymph % (Auto) 4.6 % (13.4-35.0) L 03/10/18 06:55 [place] % (Auto) 3.1 % (0.0-7.3) 03/10/18 06:55 Eos % (Auto) 1.9 % (0.0-4.3) 03/10/18 06:55 Baso % (Auto) 0.4 % (0.0-1.8) 03/10/18 06:55 Lymph # 0.5 K/mm3 (1.2-5.4) L 03/10/18 06:55 [place] # 0.3 K/mm3 (0.0-0.8) 03/10/18 06:55 Eos # 0.2 K/mm3 (0.0-0.4) 03/10/18 06:55 Baso # 0.0 K/mm3 (0.0-0.1) 03/10/18 06:55 Add Manual Diff Complete 03/08/18 04:30 Total Counted 100 03/08/18 04:30 Seg Neutrophils % 90.0 % (40.0-70.0) H 03/10/18 06:55 Seg Neuts % (Manual) 91.0 % (40.0-70.0) H 03/08/18 04:30 Band Neutrophils % 1.0 % 03/08/18 04:30 Lymphocytes % (Manual) 2.0 % (13.4-35.0) L 03/08/18 04:30 Reactive Lymphs % (Man) 0 % 03/08/18 04:30 Monocytes % (Manual) 4.0 % (0.0-7.3) 03/08/18 04:30 Eosinophils % (Manual) 0 % (0.0-4.3) 03/08/18 04:30 Basophils % (Manual) 1.0 % (0.0-1.8) 03/08/18 04:30 Metamyelocytes % 0 % 03/08/18 04:30 Myelocytes % 1.0 % 03/08/18 04:30 Promyelocytes % 0 % 03/08/18 04:30 Blast Cells % 0 % 03/08/18 04:30 Nucleated RBC % Not Reportable 03/08/18 04:30 Seg Neutrophils # 9.1 K/mm3 (1.8-7.7) H 03/10/18 06:55 Seg Neutrophils # Man 12.6 K/mm3 (1.8-7.7) H 03/08/18 04:30 Band Neutrophils # 0.1 K/mm3 03/08/18 04:30 Lymphocytes # (Manual) 0.3 K/mm3 (1.2-5.4) L 03/08/18 04:30 Abs React Lymphs (Man) 0.0 K/mm3 03/08/18 04:30 Monocytes # (Manual) 0.6 K/mm3 (0.0-0.8) 03/08/18 04:30 Eosinophils # (Manual) 0.0 K/mm3 (0.0-0.4) 03/08/18 04:30 Basophils # (Manual) 0.1 K/mm3 (0.0-0.1) 03/08/18 04:30 Metamyelocytes # 0.0 K/mm3 03/08/18 04:30 Myelocytes # 0.1 K/mm3 03/08/18 04:30 Promyelocytes # 0.0 K/mm3 03/08/18 04:30 Blast Cells # 0.0 K/mm3 03/08/18 04:30 WBC Morphology Not Reportable 03/08/18 04:30 Hypersegmented Neuts Not Reportable 03/08/18 04:30 Hyposegmented Neuts Not Reportable 03/08/18 04:30 Hypogranular Neuts Not Reportable 03/08/18 04:30 Smudge Cells Not Reportable 03/08/18 04:30 Toxic Granulation Not Reportable 03/08/18 04:30 Toxic Vacuolation Not Reportable 03/08/18 04:30 Dohle Bodies Not Reportable 03/08/18 04:30 Pelger-Huet Anomaly Not Reportable 03/08/18 04:30 Erwin Rods Not Reportable 03/08/18 04:30 Platelet Estimate Consistent w auto 03/08/18 04:30 Clumped Platelets Not Reportable 03/08/18 04:30 Plt Clumps, EDTA Not Reportable 03/08/18 04:30 Large Platelets Not Reportable 03/08/18 04:30 Giant Platelets Not Reportable 03/08/18 04:30 Platelet Satelliting Not Reportable 03/08/18 04:30 Plt Morphology Comment Not Reportable 03/08/18 04:30 RBC Morphology Not Reportable 03/08/18 04:30 Dimorphic RBCs Not Reportable 03/08/18 04:30 Polychromasia Not Reportable 03/08/18 04:30 Hypochromasia Not Reportable 03/08/18 04:30 Poikilocytosis Not Reportable 03/08/18 04:30 Anisocytosis Not Reportable 03/08/18 04:30 Microcytosis Not Reportable 03/08/18 04:30 Macrocytosis Not Reportable 03/08/18 04:30 Spherocytes Not Reportable 03/08/18 04:30 Pappenheimer Bodies Not Reportable 03/08/18 04:30 Sickle Cells Not Reportable 03/08/18 04:30 Target Cells 1+ 03/08/18 04:30 Tear Drop Cells Not Reportable 03/08/18 04:30 Ovalocytes Not Reportable 03/08/18 04:30 Stomatocytes Few 02/28/18 09:00 Helmet Cells Not Reportable 03/08/18 04:30 Chase-Greenock Bodies Not Reportable 03/08/18 04:30 [place] Rings Not Reportable 03/08/18 04:30 Hardwick Cells Not Reportable 03/08/18 04:30 Bite Cells Not Reportable 03/08/18 04:30 Crenated Cell Not Reportable 03/08/18 04:30 Elliptocytes Not Reportable 03/08/18 04:30 Acanthocytes (Spur) Not Reportable 03/08/18 04:30 Rouleaux Not Reportable 03/08/18 04:30 Hemoglobin C Crystals Not Reportable 03/08/18 04:30 Schistocytes Not Reportable 03/08/18 04:30 Malaria parasites Not Reportable 03/08/18 04:30 Aric Bodies Not Reportable 03/08/18 04:30 Hem Pathologist Commnt No 03/08/18 04:30 PT 21.5 Sec. (12.2-14.9) H 02/26/18 20:50 INR 1.75 (0.87-1.13) H 02/26/18 20:50 POC ABG pH 7.498 (7.35-7.45) H 03/08/18 11:54 POC ABG pCO2 30.2 (35-45) L 03/08/18 11:54 POC ABG pO2 44 (80-105) L 03/08/18 11:54 POC ABG HCO3 23.4 03/08/18 11:54 POC ABG Total CO2 24 03/08/18 11:54 POC ABG O2 Sat 85 03/08/18 11:54 POC ABG Base Excess 0 03/08/18 11:54 VBG pH 7.406 (7.320-7.420) 02/25/18 23:15 FiO2 30 % 03/08/18 11:54 Sodium 135 mmol/L (137-145) L 03/10/18 06:55 Potassium 4.2 mmol/L (3.6-5.0) D 03/10/18 06:55 Chloride 90.2 mmol/L (98-107) L 03/10/18 06:55 Carbon Dioxide 24 mmol/L (22-30) 03/10/18 06:55 Anion Gap 25 mmol/L 03/10/18 06:55 BUN 82 mg/dL (9-20) H 03/10/18 06:55 Creatinine 3.9 mg/dL (0.8-1.5) H 03/10/18 06:55 Estimated GFR 19 ml/min 03/10/18 06:55 BUN/Creatinine Ratio 21 % 03/10/18 06:55 Glucose 88 mg/dL (75-100) 03/10/18 06:55 POC Glucose 86 (70-105) 03/10/18 05:17 Lactic Acid 3.10 mmol/L (0.7-2.0) H* 02/28/18 07:04 Calcium 7.6 mg/dL (8.4-10.2) L D 03/10/18 06:55 Phosphorus 5.10 mg/dL (2.5-4.5) H 03/03/18 04:30 Magnesium 1.40 mg/dL (1.7-2.3) L 03/03/18 12:37 Total Bilirubin 4.50 mg/dL (0.1-1.2) H 02/26/18 07:39 AST 105 units/L (5-40) H 02/26/18 07:39 ALT 48 units/L (7-56) 02/26/18 07:39 Alkaline Phosphatase 109 units/L (35-129) 02/26/18 07:39 C-Reactive Protein 19.80 mg/dL (0.00-1.30) H 03/04/18 05:30 Total Protein 6.4 g/dL (6.3-8.2) 02/26/18 07:39 Albumin 2.4 g/dL (3.9-5) L 02/26/18 07:39 Albumin/Globulin Ratio 0.6 % 02/26/18 07:39 Lipase 35 units/L (13-60) 02/26/18 02:58 TSH 2.670 mlU/mL (0.270-4.200) 02/26/18 00:10 Free T4 1.26 ng/dL (0.76-1.46) 02/26/18 00:10 Urine Color Lesley (Yellow) 02/26/18 00:32 Urine Turbidity Hazy (Clear) 02/26/18 00:32 Urine pH 5.0 (5.0-7.0) 02/26/18 00:32 Ur Specific [place] 1.015 (1.003-1.030) 02/26/18 00:32 Urine Protein <15 mg/dl mg/dL (Negative) 02/26/18 00:32 Urine Glucose (UA) Neg mg/dL (Negative) 02/26/18 00:32 Urine Ketones Neg mg/dL (Negative) 02/26/18 00:32 Urine Blood Neg (Negative) 02/26/18 00:32 Urine Nitrite Neg (Negative) 02/26/18 00:32 Urine Bilirubin Neg (Negative) 02/26/18 00:32 Urine Urobilinogen 4.0 mg/dL (<2.0) 02/26/18 00:32 Ur Leukocyte Esterase Neg (Negative) 02/26/18 00:32 Urine WBC (Auto) 1.0 /HPF (0.0-6.0) 02/26/18 00:32 Urine RBC (Auto) 1.0 /HPF (0.0-6.0) 02/26/18 00:32 U Epithel Cells (Auto) 1.0 /HPF (0-13.0) 02/26/18 00:32 Amorphous Crystals 3+ 02/26/18 00:32 Hyaline Casts 4 /LPF 02/26/18 00:32 Urine Mucus Few /HPF 02/26/18 00:32 Urine Total Volume 490 03/09/18 17:38 Urine Creatinine 69.2 mg/dL (0.1-20.0) H 03/09/18 17:38 Ur Creatinine 24 Hour 0.3 (0.8-2.8) L 03/09/18 13:30 Height (in) 67.0 inches 03/09/18 17:38 Weight (lb) 159.0 lbs 03/09/18 17:38 Creatinine Clearance 7 03/09/18 17:38 Urine Sodium 67 mmol/L 02/26/18 13:08 Blood Type A POSITIVE 03/03/18 08:37 Antibody Screen Negative 03/03/18 08:37 Crossmatch See Detail 03/03/18 08:37
[2018-03-10] MEDS ORDERED: NACL 0.9% 500 ML 500 ML IV NR (08:30)
[2018-03-10] MEDS: HEPARIN SUB-Q SCH ×3 (08:44→22:25)
[2018-03-10] MEDS: SODIUM CHLORIDE FLUSH SYRINGE 10 ML IV SCH ×3 (08:44→22:25)
[2018-03-10] MEDS: ZYVOX PO SCH ×3 (08:45→22:25)
[2018-03-10] MEDS: SODIUM BICARBONATE FEEDTUBE SCH (08:47)
--- NOTE | 2018-03-10 11:17 | Progress Note ---
Assessment and Plan Impression: * Nonoliguric acute kidney injury secondary to prerenal azotemia/ATN due to dehydration vs sepsis --Baseline SCr 1.6-1.8mg/dL --24h urine CrCl 7 ml/min (March 09 2018) * Acute hypoxic respiratory failure * Sepsis * HCAP --sputum w/ MRSA, group A beta hemolytic strep * Hypernatremia secondary to dehydration - resolved * Metabolic acidosis secondary to lactic acidosis * CVA * Cardiac arrest 03/03 * Anemia Plan: * Renal function continues to decline - 24h urine CrCl 7ml/min * Will plan start renal replacement therapy today * IR consulted for vascath placement * Transfuse pRBC - Hb 6.0 today * Replete lytes prn * Continue NaBicarb per NGT * Vent management per CCM * Broad spectrum abx * Dose medications for renal function * Avoid potential nephrotoxins Subjective Date of service: 03/10/18 Principal diagnosis: Acute Hypoxemic Resp Failure; Severe Sepsis; Aspiration Pneumonai (HCAP) Interval history: Patient remains intubated. Objective - Vital Signs Vital signs: Vital Signs - 12hr 03/09/18 03/09/18 03/09/18 23:24 23:26 23:30 Temperature Pulse Rate 108 H 109 H Pulse Rate [ 108 H Anterior Bilateral Throughout] Pulse Rate [ From Monitor] Respiratory 17 Rate Respiratory 16 Rate [Anterior Bilateral Throughout] Blood Pressure 115/74 111/66 O2 Sat by Pulse 97 96 Oximetry 03/09/18 03/09/18 03/09/18 23:34 23:41 23:44 Temperature 98.9 F Pulse Rate 110 H Pulse Rate [ 109 H Anterior Bilateral Throughout] Pulse Rate [ From Monitor] Respiratory 17 Rate Respiratory 15 Rate [Anterior Bilateral Throughout] Blood Pressure 110/65 O2 Sat by Pulse 95 Oximetry 03/09/18 03/10/18 03/10/18 23:45 00:00 00:15 Temperature Pulse Rate 109 H 111 H 109 H Pulse Rate [ Anterior Bilateral Throughout] Pulse Rate [ 111 H From Monitor] Respiratory 15 16 15 Rate Respiratory Rate [Anterior Bilateral Throughout] Blood Pressure 110/65 109/65 103/60 O2 Sat by Pulse 93 91 Oximetry 03/10/18 03/10/18 03/10/18 00:30 00:45 01:00 Temperature Pulse Rate 109 H 108 H 109 H Pulse Rate [ Anterior Bilateral Throughout] Pulse Rate [ From Monitor] Respiratory 14 14 15 Rate Respiratory Rate [Anterior Bilateral Throughout] Blood Pressure 100/64 97/61 97/61 O2 Sat by Pulse 91 92 Oximetry 03/10/18 03/10/18 03/10/18 01:15 01:30 01:45 Temperature Pulse Rate 106 H 106 H 108 H Pulse Rate [ Anterior Bilateral Throughout] Pulse Rate [ From Monitor] Respiratory 14 15 18 Rate Respiratory Rate [Anterior Bilateral Throughout] Blood Pressure 99/58 101/65 111/71 O2 Sat by Pulse 93 92 92 Oximetry 03/10/18 03/10/18 03/10/18 02:00 02:15 02:30 Temperature Pulse Rate 108 H 108 H 107 H Pulse Rate [ Anterior Bilateral Throughout] Pulse Rate [ From Monitor] Respiratory 16 17 16 Rate Respiratory Rate [Anterior Bilateral Throughout] Blood Pressure 115/71 106/72 100/62 O2 Sat by Pulse 95 91 95 Oximetry 03/10/18 03/10/18 03/10/18 02:45 03:00 03:15 Temperature Pulse Rate 107 H 108 H 109 H Pulse Rate [ Anterior Bilateral Throughout] Pulse Rate [ From Monitor] Respiratory 15 15 15 Rate Respiratory Rate [Anterior Bilateral Throughout] Blood Pressure 94/67 98/65 102/68 O2 Sat by Pulse 94 93 93 Oximetry 03/10/18 03/10/18 03/10/18 03:16 03:30 03:46 Temperature 97.8 F Pulse Rate 107 H 114 H Pulse Rate [ Anterior Bilateral Throughout] Pulse Rate [ From Monitor] Respiratory 15 26 H Rate Respiratory Rate [Anterior Bilateral Throughout] Blood Pressure 107/68 74/52 O2 Sat by Pulse 94 92 Oximetry 03/10/18 03/10/18 03/10/18 03:50 04:00 04:15 Temperature Pulse Rate 113 H 121 H 113 H Pulse Rate [ Anterior Bilateral Throughout] Pulse Rate [ 111 H From Monitor] Respiratory 23 Rate Respiratory Rate [Anterior Bilateral Throughout] Blood Pressure 74/52 132/81 109/60 O2 Sat by Pulse 93 93 100 Oximetry 03/10/18 03/10/18 03/10/18 04:30 04:45 05:00 Temperature Pulse Rate 108 H 108 H 107 H Pulse Rate [ Anterior Bilateral Throughout] Pulse Rate [ From Monitor] Respiratory Rate Respiratory Rate [Anterior Bilateral Throughout] Blood Pressure 99/50 91/49 87/49 O2 Sat by Pulse 100 100 99 Oximetry 03/10/18 03/10/18 03/10/18 05:15 05:30 05:45 Temperature Pulse Rate 105 H 106 H 104 H Pulse Rate [ Anterior Bilateral Throughout] Pulse Rate [ From Monitor] Respiratory Rate Respiratory Rate [Anterior Bilateral Throughout] Blood Pressure 99/45 91/47 98/58 O2 Sat by Pulse 98 100 Oximetry 03/10/18 03/10/18 03/10/18 06:00 06:15 07:12 Temperature Pulse Rate 102 H 136 H 104 H Pulse Rate [ Anterior Bilateral Throughout] Pulse Rate [ From Monitor] Respiratory Rate Respiratory Rate [Anterior Bilateral Throughout] Blood Pressure 100/58 97/56 94/55 O2 Sat by Pulse 100 100 96 Oximetry 03/10/18 03/10/18 03/10/18 07:18 08:00 08:02 Temperature 98.3 F Pulse Rate Pulse Rate [ 106 H 104 H Anterior Bilateral Throughout] Pulse Rate [ From Monitor] Respiratory Rate Respiratory 13 13 Rate [Anterior Bilateral Throughout] Blood Pressure O2 Sat by Pulse Oximetry - General Appearance General appearance: intubated EENT: ATNC, other (ETT in place) Respiratory: Present: Wheezes Cardiology: regular, S1S2 Gastrointestinal: normal, no tenderness, no distended Integumentary: no rash, warm and dry Musculoskeletal: other (2+ edema thigh; scrotal edema) - Lab 03/10/18 06:55 03/10/18 06:55 Most recent lab results Calcium 7.6 mg/dL (8.4-10.2) L D 03/10/18 06:55 Phosphorus 5.10 mg/dL (2.5-4.5) H 03/03/18 04:30 Magnesium 1.40 mg/dL (1.7-2.3) L 03/03/18 12:37 Urine Creatinine 69.2 mg/dL (0.1-20.0) H 03/09/18 17:38 Urine Sodium 67 mmol/L 02/26/18 13:08
[2018-03-10] MEDS: ALBURX 25% (ALBUMIN) IV SCH ×2 (12:05→22:24)
[2018-03-10] MEDS: BABY ASPIRIN PO SCH (12:05)
[2018-03-10] MEDS: PEPCID PO SCH (12:06)
[2018-03-10] MEDS ORDERED: NACL 0.9% 100 ML IV PRN (12:39)
--- NOTE | 2018-03-10 13:24 | Operative Report ---
Operative Report Operative Report: Exam: Ultrasound-Guided Placement of Vas Cath Clinical Indication: End-stage renal disease requiring dialysis access Date: 03/10/2018 Procedure: Following an explanation of the risks, benefits and alternatives; written informed consent was obtained the patient's next of kin. Initial ultrasound evaluation of the patient's left neck demonstrated a patent left internal jugular vein. The patient's left neck was prepped and draped in the usual sterile fashion. 1% lidocaine was used for anesthesia. Under ultrasound guidance, the left internal jugular vein was cannulated with a 7 cm 18-gauge needle. A 0.035 guidewire was advanced centrally easily. The needle was removed and following serial dilation, a 20 cm dialysis catheter was advanced over the guidewire centrally. The guidewire was removed. All 3 ports returned nonpulsatile blood. The catheter was flushed and aspirated easily and unlocked with sterile saline. The catheter was securely fastened of the skin surface using 2-0 nylon suture and a sterile dressing applied. The patient tolerated the procedure well. There were no immediate post procedure complications. Post procedure chest x-ray was ordered Impression: Ultrasound guided placement of Vas-Cath via the left internal jugular vein
--- NOTE | 2018-03-10 13:54 | Progress Note ---
Assessment and Plan Severe sepsis with septic shock. Aspiration pneumonia, healthcare associated. Acute on chronic encephalopathy. Acute on chronic kidney injury. Anemia. Hypernatremia. Metabolic acidosis. Lactic acidosis. History of hypertension. History of diabetes. History of Alzheimer dementia. - to recieve 2 units PRBC's - s/p BOLIVAR perezcath - to begin HD/UFcontinue daily SAT's and SBT's - awaiting tracheostomy - continue bronchodilators with pulmonary hygiene per RT - continue to wean FiO2 for sats > 90% - addressing VAP bundle daily - continue to wean levophed for MAP > 65 mmHg - continue free water flushes - strict I's & O's re: DIANNA and will leave shrestha catheter in place for now - further azotemia management per carriage feeder (input appreciated) - conservative volume management strategies at this point - continue to trend CRP and lactate prn - continue enteral nutrition as tolerated - continue mobility protocol for pressure ulcer prophylaxis - continue GI & VTE prophylaxis - continue antibiotics; on vancomycin for MRSA pneumonia and following other cultures - ID evaluation ongoing - continue contact precautions as now 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 The aggregate critical care time was [40] minutes without overlap. Time includes spent on; [x] Data Review and interpretation [x] Patient assessment and monitoring of vital signs [x] Documentation [x] Medication orders and management Subjective Date of service: 03/10/18 Principal diagnosis: Acute Hypoxemic Resp Failure; Severe Sepsis; Aspiration Pneumonai (HCAP) Interval history: Patient is seen today for: Acute Hypoxemic Resp Failure; Severe Sepsis; Aspiration Pneumonai (HCAP) Seen and examined at bedside; 24hour events reviewed; nursing and respiratory care staff consulted; no adverse overnight events reported to me; remains on MVS ; azotemia is persistent and pulmonary edema is worsening with increasing FiO2 needs; AMS is persistent; no gross bleeding but Hb at 6.o; No new issues otherwise Objective Vital Signs - 12hr 03/10/18 03/10/18 03/10/18 02:00 02:15 02:30 Temperature Pulse Rate 108 H 108 H 107 H Pulse Rate [ Anterior Bilateral Throughout] Pulse Rate [ From Monitor] Respiratory 16 17 16 Rate Respiratory Rate [Anterior Bilateral Throughout] Blood Pressure 115/71 106/72 100/62 O2 Sat by Pulse 95 91 95 Oximetry 03/10/18 03/10/18 03/10/18 02:45 03:00 03:15 Temperature Pulse Rate 107 H 108 H 109 H Pulse Rate [ Anterior Bilateral Throughout] Pulse Rate [ From Monitor] Respiratory 15 15 15 Rate Respiratory Rate [Anterior Bilateral Throughout] Blood Pressure 94/67 98/65 102/68 O2 Sat by Pulse 94 93 93 Oximetry 03/10/18 03/10/18 03/10/18 03:16 03:30 03:46 Temperature 97.8 F Pulse Rate 107 H 114 H Pulse Rate [ Anterior Bilateral Throughout] Pulse Rate [ From Monitor] Respiratory 15 26 H Rate Respiratory Rate [Anterior Bilateral Throughout] Blood Pressure 107/68 74/52 O2 Sat by Pulse 94 92 Oximetry 03/10/18 03/10/18 03/10/18 03:50 04:00 04:15 Temperature Pulse Rate 113 H 121 H 113 H Pulse Rate [ Anterior Bilateral Throughout] Pulse Rate [ 111 H From Monitor] Respiratory 23 Rate Respiratory Rate [Anterior Bilateral Throughout] Blood Pressure 74/52 132/81 109/60 O2 Sat by Pulse 93 93 100 Oximetry 03/10/18 03/10/18 03/10/18 04:30 04:45 05:00 Temperature Pulse Rate 108 H 108 H 107 H Pulse Rate [ Anterior Bilateral Throughout] Pulse Rate [ From Monitor] Respiratory Rate Respiratory Rate [Anterior Bilateral Throughout] Blood Pressure 99/50 91/49 87/49 O2 Sat by Pulse 100 100 99 Oximetry 03/10/18 03/10/18 03/10/18 05:15 05:30 05:45 Temperature Pulse Rate 105 H 106 H 104 H Pulse Rate [ Anterior Bilateral Throughout] Pulse Rate [ From Monitor] Respiratory Rate Respiratory Rate [Anterior Bilateral Throughout] Blood Pressure 99/45 91/47 98/58 O2 Sat by Pulse 98 100 Oximetry 03/10/18 03/10/18 03/10/18 06:00 06:15 06:30 Temperature Pulse Rate 102 H 136 H 103 H Pulse Rate [ Anterior Bilateral Throughout] Pulse Rate [ From Monitor] Respiratory Rate Respiratory Rate [Anterior Bilateral Throughout] Blood Pressure 100/58 97/56 101/57 O2 Sat by Pulse 100 100 100 Oximetry 03/10/18 03/10/1803/10/18 06:40 06:50 07:00 Temperature Pulse Rate 102 H 102 H 101 H Pulse Rate [ Anterior Bilateral Throughout] Pulse Rate [ From Monitor] Respiratory Rate Respiratory Rate [Anterior Bilateral Throughout] Blood Pressure 101/57 89/52 94/55 O2 Sat by Pulse 100 100 99 Oximetry 03/10/18 03/10/18 03/10/18 07:10 07:12 07:18 Temperature Pulse Rate 104 H 104 H Pulse Rate [ 106 H Anterior Bilateral Throughout] Pulse Rate [ From Monitor] Respiratory Rate Respiratory 13 Rate [Anterior Bilateral Throughout] Blood Pressure 94/55 94/55 O2 Sat by Pulse 91 96 Oximetry 03/10/18 03/10/18 03/10/18 07:20 07:30 07:40 Temperature Pulse Rate 105 H 105 H 105 H Pulse Rate [ Anterior Bilateral Throughout] Pulse Rate [ From Monitor] Respiratory Rate Respiratory Rate [Anterior Bilateral Throughout] Blood Pressure 102/70 96/62 96/62 O2 Sat by Pulse 90 87 90 Oximetry 03/10/18 03/10/18 03/10/18 07:50 08:00 08:02 Temperature 98.3 F Pulse Rate 103 H 105 H Pulse Rate [ 104 H Anterior Bilateral Throughout] Pulse Rate [ From Monitor] Respiratory Rate Respiratory 13 Rate [Anterior Bilateral Throughout] Blood Pressure 101/55 104/58 O2 Sat by Pulse 90 90 Oximetry 03/10/18 03/10/18 03/10/18 08:10 08:20 08:30 Temperature Pulse Rate 106 H 105 H 105 H Pulse Rate [ Anterior Bilateral Throughout] Pulse Rate [ From Monitor] Respiratory Rate Respiratory Rate [Anterior Bilateral Throughout] Blood Pressure 104/58 95/64 100/63 O2 Sat by Pulse 90 91 88 Oximetry 03/10/18 03/10/18 03/10/18 08:40 08:50 09:00 Temperature Pulse Rate 105 H 104 H 107 H Pulse Rate [ Anterior Bilateral Throughout] Pulse Rate [ From Monitor] Respiratory Rate Respiratory Rate [Anterior Bilateral Throughout] Blood Pressure 100/63 105/64 105/64 O2 Sat by Pulse 90 90 90 Oximetry 03/10/18 03/10/18 03/10/18 09:10 09:20 09:30 Temperature Pulse Rate 104 H 104 H 104 H Pulse Rate [ Anterior Bilateral Throughout] Pulse Rate [ From Monitor] Respiratory Rate Respiratory Rate [Anterior Bilateral Throughout] Blood Pressure 109/67 99/64 103/61 O2 Sat by Pulse 91 91 89 Oximetry 03/10/18 03/10/18 03/10/18 09:40 09:50 10:00 Temperature Pulse Rate 107 H 103 H 106 H Pulse Rate [ Anterior Bilateral Throughout] Pulse Rate [ From Monitor] Respiratory Rate Respiratory Rate [Anterior Bilateral Throughout] Blood Pressure 103/61 95/62 99/58 O2 Sat by Pulse 90 91 88 Oximetry 03/10/18 03/10/18 03/10/18 10:10 10:20 10:30 Temperature Pulse Rate 106 H 106 H 106 H Pulse Rate [ Anterior Bilateral Throughout] Pulse Rate [ From Monitor] Respiratory Rate Respiratory Rate [Anterior Bilateral Throughout] Blood Pressure 99/58 97/63 98/70 O2 Sat by Pulse 90 91 91 Oximetry 03/10/18 03/10/18 03/10/18 10:40 10:50 11:00 Temperature Pulse Rate 105 H 105 H 110 H Pulse Rate [ Anterior Bilateral Throughout] Pulse Rate [ From Monitor] Respiratory Rate Respiratory Rate [Anterior Bilateral Throughout] Blood Pressure 97/63 108/64 93/62 O2 Sat by Pulse 91 91 89 Oximetry 03/10/18 03/10/18 03/10/18 11:10 11:20 11:30 Temperature Pulse Rate 106 H 106 H 105 H Pulse Rate [ Anterior Bilateral Throughout] Pulse Rate [ From Monitor] Respiratory Rate Respiratory Rate [Anterior Bilateral Throughout] Blood Pressure 93/62 99/62 106/64 O2 Sat by Pulse 91 90 94 Oximetry 03/10/18 03/10/18 03/10/18 11:32 11:40 11:50 Temperature Pulse Rate 109 H 107 H 107 H Pulse Rate [ Anterior Bilateral Throughout] Pulse Rate [ From Monitor] Respiratory Rate Respiratory Rate [Anterior Bilateral Throughout] Blood Pressure 99/62 93/62 92/65 O2 Sat by Pulse 97 89 90 Oximetry 03/10/18 03/10/18 03/10/18 12:00 12:10 12:23 Temperature 98.0 F 98 F Pulse Rate 111 H 108 H Pulse Rate [ Anterior Bilateral Throughout] Pulse Rate [ From Monitor] Respiratory Rate Respiratory Rate [Anterior Bilateral Throughout] Blood Pressure 90/65 106/64 O2 Sat by Pulse 95 90 Oximetry 03/10/18 12:52 Temperature Pulse Rate 112 H Pulse Rate [ Anterior Bilateral Throughout] Pulse Rate [ From Monitor] Respiratory Rate Respiratory Rate [Anterior Bilateral Throughout] Blood Pressure 92/61 O2 Sat by Pulse 97 Oximetry Constitutional: appears uncomfortable, other (elderly looking AAM, normocephalic and atraumatic on MVS with increased respiratory effort) Eyes: non-icteric ENT: oropharynx moist, other (ETT 24 cm TERESA) Neck: supple, no lymphadenopathy, no JVD, other (no thyromegaly) Effort: mildly labored Ascultation: Bilateral: diminished breath sounds, rales Percussion: Bilateral: not dull Cardiovascular: regular rate and rhythm, other (No R/M, S1,S2) Gastrointestinal: normoactive bowel sounds, soft, non-tender, non-distended, other (+ PEG; No HSM) Integumentary: other (poor turgor) Extremities: no cyanosis, no edema, pulses normal, no ischemia or petechiae Neurologic: pupils equal and round, unable to assess, other (left hemiplegia post prior CVA) Psychiatric: other (unable to assess re: encephalopathy) CBC and BMP: 03/10/18 06:55 03/10/18 06:55 ABG, PT/INR, D-dimer: ABG POC ABG pH 7.498 (7.35-7.45) H 03/08/18 11:54 POC ABG pCO2 30.2 (35-45) L 03/08/18 11:54 POC ABG pO2 44 (80-105) L 03/08/18 11:54 POC ABG HCO3 23.4 03/08/18 11:54 POC ABG Total CO2 24 03/08/18 11:54 POC ABG O2 Sat 85 03/08/18 11:54 PT/INR, D-dimer PT 21.5 Sec. (12.2-14.9) H 02/26/18 20:50 INR 1.75 (0.87-1.13) H 02/26/18 20:50 Abnormal lab findings: Abnormal Labs 02/25/18 02/25/18 02/25/18 23:15 23:15 23:15 WBC 12.3 H RBC 3.56 L Hgb 10.2 L Hct 33.7 L MCV 95 H MCHC 30 L RDW 17.7 H Lymph % (Auto) Lymph # Seg Neutrophils % Seg Neuts % (Manual) 35.0 L Lymphocytes % (Manual) 13.0 L Monocytes % (Manual) 8.0 H Nucleated RBC % Seg Neutrophils # Seg Neutrophils # Man Lymphocytes # (Manual) Monocytes # (Manual) 1.0 H PT 20.3 H INR 1.63 H POC ABG pH POC ABG pCO2 POC ABG pO2 Sodium 152 H Potassium Chloride 108.7 H Carbon Dioxide 18 L BUN 136 H Creatinine 5.2 H Glucose POC Glucose Lactic Acid Calcium 8.0 L Phosphorus Magnesium Total Bilirubin 4.50 H AST 83 H C-Reactive Protein Albumin 2.7 L Urine Creatinine Ur Creatinine 24 Hour Crossmatch 02/25/18 02/25/18 02/26/18 23:15 23:30 03:06 WBC RBC Hgb Hct MCV MCHC RDW Lymph % (Auto) Lymph # Seg Neutrophils % Seg Neuts % (Manual) Lymphocytes % (Manual) Monocytes % (Manual) Nucleated RBC % Seg Neutrophils # Seg Neutrophils # Man Lymphocytes # (Manual) Monocytes # (Manual) PT INR POC ABG pH POC ABG pCO2 25.2 L POC ABG pO2 69 L Sodium Potassium Chloride Carbon Dioxide BUN Creatinine Glucose POC Glucose Lactic Acid 7.00 H* 9.70 H* Calcium Phosphorus Magnesium Total Bilirubin AST C-Reactive Protein Albumin Urine Creatinine Ur Creatinine 24 Hour Crossmatch 02/26/18 02/26/18 02/26/18 05:12 05:43 07:39 WBC 23.7 H RBC 3.27 L Hgb 9.3 L Hct 31.1 L MCV 95 H MCHC 30 L RDW 17.4 H Lymph % (Auto) Lymph # Seg Neutrophils % Seg Neuts % (Manual) Lymphocytes % (Manual) 2.0 L Monocytes % (Manual) Nucleated RBC % 1.0 H Seg Neutrophils # Seg Neutrophils # Man 16.1 H Lymphocytes # (Manual) 0.5 L Monocytes # (Manual) 1.2 H PT INR POC ABG pH POC ABG pCO2 19.5 L POC ABG pO2 72 L Sodium Potassium Chloride Carbon Dioxide BUN Creatinine Glucose POC Glucose Lactic Acid 8.80 H* Calcium Phosphorus Magnesium Total Bilirubin AST C-Reactive Protein Albumin Urine Creatinine Ur Creatinine 24 Hour Crossmatch 02/26/18 02/26/18 02/26/18 07:39 12:06 13:08 WBC RBC Hgb Hct MCV MCHC RDW Lymph % (Auto) Lymph # Seg Neutrophils % Seg Neuts % (Manual) Lymphocytes % (Manual) Monocytes % (Manual) Nucleated RBC % Seg Neutrophils # Seg Neutrophils # Man Lymphocytes # (Manual) Monocytes # (Manual) PT INR POC ABG pH POC ABG pCO2 27.8 L POC ABG pO2 168 H Sodium 155 H Potassium Chloride 114.2 H Carbon Dioxide 14 L BUN 120 H Creatinine 4.6 H Glucose 108 H POC Glucose Lactic Acid Calcium 7.7 L Phosphorus Magnesium Total Bilirubin 4.50 H AST 105 H C-Reactive Protein Albumin 2.4 L Urine Creatinine 38.6 H Ur Creatinine 24 Hour Crossmatch 02/26/18 02/26/18 02/26/18 18:41 20:50 20:50 WBC RBC Hgb Hct MCV MCHC RDW Lymph % (Auto) Lymph # Seg Neutrophils % Seg Neuts % (Manual) Lymphocytes % (Manual) Monocytes % (Manual) Nucleated RBC % Seg Neutrophils # Seg Neutrophils # Man Lymphocytes # (Manual) Monocytes # (Manual) PT 21.5 H INR 1.75 H POC ABG pH POC ABG pCO2 POC ABG pO2 Sodium Potassium Chloride Carbon Dioxide BUN Creatinine Glucose POC Glucose 135 H Lactic Acid Calcium Phosphorus Magnesium Total Bilirubin AST C-Reactive Protein 33.90 H Albumin Urine Creatinine Ur Creatinine 24 Hour Crossmatch 02/27/18 02/27/18 02/27/18 03:39 04:56 04:56 WBC 20.1 H RBC 2.92 L Hgb 8.4 L Hct 27.5 L MCV MCHC 31 L RDW 17.1 H Lymph % (Auto) Lymph # Seg Neutrophils % Seg Neuts % (Manual) 92.0 H Lymphocytes % (Manual) 3.0 L Monocytes % (Manual) Nucleated RBC % Seg Neutrophils # Seg Neutrophils # Man 18.5 H Lymphocytes # (Manual) 0.6 L Monocytes # (Manual) PT INR POC ABG pH 7.453 H POC ABG pCO2 27.2 L POC ABG pO2 Sodium 149 H Potassium Chloride 113.1 H Carbon Dioxide 18 L BUN 103 H Creatinine 3.8 H Glucose 120 H POC Glucose Lactic Acid Calcium 7.8 L Phosphorus Magnesium Total Bilirubin AST C-Reactive Protein Albumin Urine Creatinine Ur Creatinine 24 Hour Crossmatch 02/27/18 02/27/18 02/27/18 12:37 12:45 17:51 WBC RBC Hgb Hct MCV MCHC RDW Lymph % (Auto) Lymph # Seg Neutrophils % Seg Neuts % (Manual) Lymphocytes % (Manual) Monocytes % (Manual) Nucleated RBC % Seg Neutrophils # Seg Neutrophils # Man Lymphocytes # (Manual) Monocytes # (Manual) PT INR POC ABG pH POC ABG pCO2 POC ABG pO2 Sodium Potassium Chloride Carbon Dioxide BUN Creatinine Glucose POC Glucose 169 H 133 H Lactic Acid 2.90 H* Calcium Phosphorus Magnesium Total Bilirubin AST C-Reactive Protein Albumin Urine Creatinine Ur Creatinine 24 Hour Crossmatch 02/28/18 02/28/18 02/28/18 00:23 05:00 05:02 WBC RBC Hgb Hct MCV MCHC RDW Lymph % (Auto) Lymph # Seg Neutrophils % Seg Neuts % (Manual) Lymphocytes % (Manual) Monocytes % (Manual) Nucleated RBC % Seg Neutrophils # Seg Neutrophils # Man Lymphocytes # (Manual) Monocytes # (Manual) PT INR POC ABG pH POC ABG pCO2 POC ABG pO2 Sodium Potassium Chloride Carbon Dioxide BUN Creatinine Glucose POC Glucose 161 H 116 H Lactic Acid 2.70 H* Calcium Phosphorus Magnesium Total Bilirubin AST C-Reactive Protein Albumin Urine Creatinine Ur Creatinine 24 Hour Crossmatch 02/28/18 02/28/18 02/28/18 05:28 07:04 09:00 WBC 22.3 H RBC 2.63 L Hgb 7.6 L Hct 24.1 L MCV MCHC 31 L RDW 17.4 H Lymph % (Auto) Lymph # Seg Neutrophils % Seg Neuts % (Manual) 84.0 H Lymphocytes % (Manual) 8.0 L Monocytes % (Manual) Nucleated RBC % Seg Neutrophils # Seg Neutrophils # Man 18.7 H Lymphocytes # (Manual) Monocytes # (Manual) 1.1 H PT INR POC ABG pH 7.477 H POC ABG pCO2 24.6 L POC ABG pO2 57 L Sodium Potassium Chloride Carbon Dioxide BUN Creatinine Glucose POC Glucose Lactic Acid 3.10 H* Calcium Phosphorus Magnesium Total Bilirubin AST C-Reactive Protein Albumin Urine Creatinine Ur Creatinine 24 Hour Crossmatch 02/28/18 02/28/18 02/28/18 09:00 11:36 17:10 WBC RBC Hgb Hct MCV MCHC RDW Lymph % (Auto) Lymph # Seg Neutrophils % Seg Neuts % (Manual) Lymphocytes % (Manual) Monocytes % (Manual) Nucleated RBC % Seg Neutrophils # Seg Neutrophils # Man Lymphocytes # (Manual) Monocytes # (Manual) PT INR POC ABG pH POC ABG pCO2 POC ABG pO2 Sodium Potassium 3.3 L 3.5 L Chloride Carbon Dioxide 21 L 19 L BUN 76 H 69 H Creatinine 2.8 H 2.5 H Glucose 104 H 124 H POC Glucose 107 H Lactic Acid Calcium 7.6 L 7.3 L Phosphorus 1.50 L Magnesium Total Bilirubin AST C-Reactive Protein Albumin Urine Creatinine Ur Creatinine 24 Hour Crossmatch 02/28/18 02/28/18 03/01/18 17:36 23:40 06:25 WBC RBC Hgb Hct MCV MCHC RDW Lymph % (Auto) Lymph # Seg Neutrophils % Seg Neuts % (Manual) Lymphocytes % (Manual) Monocytes % (Manual) Nucleated RBC % Seg Neutrophils # Seg Neutrophils # Man Lymphocytes # (Manual) Monocytes # (Manual) PT INR POC ABG pH 7.542 H POC ABG pCO2 23.3 L POC ABG pO2 62 L Sodium Potassium Chloride Carbon Dioxide BUN Creatinine Glucose POC Glucose 151 H 111 H Lactic Acid Calcium Phosphorus Magnesium Total Bilirubin AST C-Reactive Protein Albumin Urine Creatinine Ur Creatinine 24 Hour Crossmatch 03/01/18 03/01/18 03/02/18 10:00 12:12 05:21 WBC RBC Hgb Hct MCV MCHC RDW Lymph % (Auto) Lymph # Seg Neutrophils % Seg Neuts % (Manual) Lymphocytes % (Manual) Monocytes % (Manual) Nucleated RBC % Seg Neutrophils # Seg Neutrophils # Man Lymphocytes # (Manual) Monocytes # (Manual) PT INR POC ABG pH 7.473 H POC ABG pCO2 21.5 L POC ABG pO2 79 L Sodium Potassium 3.5 L Chloride Carbon Dioxide 18 L BUN 66 H Creatinine 2.8 H Glucose 103 H POC Glucose 176 H Lactic Acid Calcium 7.5 L Phosphorus Magnesium Total Bilirubin AST C-Reactive Protein Albumin Urine Creatinine Ur Creatinine 24 Hour Crossmatch 03/02/18 03/02/18 03/02/18 06:00 06:00 11:47 WBC 18.2 H RBC 2.43 L Hgb 7.2 L Hct 22.6 L MCV MCHC RDW 17.6 H Lymph % (Auto) Lymph # Seg Neutrophils % Seg Neuts % (Manual) Lymphocytes % (Manual) Monocytes % (Manual) Nucleated RBC % Seg Neutrophils # Seg Neutrophils # Man Lymphocytes # (Manual) Monocytes # (Manual) PT INR POC ABG pH POC ABG pCO2 POC ABG pO2 Sodium Potassium Chloride Carbon Dioxide 17 L BUN 68 H Creatinine 3.1 H Glucose 106 H POC Glucose 136 H Lactic Acid Calcium 7.2 L Phosphorus Magnesium Total Bilirubin AST C-Reactive Protein Albumin Urine Creatinine Ur Creatinine 24 Hour Crossmatch 03/02/18 03/03/18 03/03/18 17:35 00:54 03:38 WBC RBC Hgb Hct MCV MCHC RDW Lymph % (Auto) Lymph # Seg Neutrophils % Seg Neuts % (Manual) Lymphocytes % (Manual) Monocytes % (Manual) Nucleated RBC % Seg Neutrophils # Seg Neutrophils # Man Lymphocytes # (Manual) Monocytes # (Manual) PT INR POC ABG pH 7.451 H POC ABG pCO2 20.5 L POC ABG pO2 Sodium Potassium Chloride Carbon Dioxide BUN Creatinine Glucose POC Glucose 109 H 131 H Lactic Acid Calcium Phosphorus Magnesium Total Bilirubin AST C-Reactive Protein Albumin Urine Creatinine Ur Creatinine 24 Hour Crossmatch 03/03/18 03/03/18 03/03/18 04:30 06:15 06:15 WBC 21.1 H RBC 2.20 L Hgb 6.3 L Hct 20.8 L MCV 95 H MCHC 30 L RDW 17.8 H Lymph % (Auto) Lymph # Seg Neutrophils % Seg Neuts % (Manual) 71.0 H Lymphocytes % (Manual) 8.0 L Monocytes % (Manual) Nucleated RBC % Seg Neutrophils # Seg Neutrophils # Man 15.0 H Lymphocytes # (Manual) Monocytes # (Manual) 1.3 H PT INR POC ABG pH POC ABG pCO2 POC ABG pO2 Sodium 130 L D Potassium Chloride 96.4 L Carbon Dioxide 14 L BUN 69 H Creatinine 3.1 H Glucose POC Glucose Lactic Acid Calcium 7.0 L Phosphorus 5.10 H Magnesium Total Bilirubin AST C-Reactive Protein Albumin Urine Creatinine Ur Creatinine 24 Hour Crossmatch 03/03/18 03/03/18 03/03/18 08:37 09:38 12:13 WBC RBC Hgb Hct MCV MCHC RDW Lymph % (Auto) Lymph # Seg Neutrophils % Seg Neuts % (Manual) Lymphocytes % (Manual) Monocytes % (Manual) Nucleated RBC % Seg Neutrophils # Seg Neutrophils # Man Lymphocytes # (Manual) Monocytes # (Manual) PT INR POC ABG pH POC ABG pCO2 23.8 L POC ABG pO2 156 H Sodium Potassium Chloride Carbon Dioxide BUN Creatinine Glucose POC Glucose 119 H Lactic Acid Calcium Phosphorus Magnesium Total Bilirubin AST C-Reactive Protein Albumin Urine Creatinine Ur Creatinine 24 Hour Crossmatch See Detail 03/03/18 03/03/18 03/04/18 12:37 18:05 00:59 WBC RBC Hgb Hct MCV MCHC RDW Lymph % (Auto) Lymph # Seg Neutrophils % Seg Neuts % (Manual) Lymphocytes % (Manual) Monocytes % (Manual) Nucleated RBC % Seg Neutrophils # Seg Neutrophils # Man Lymphocytes # (Manual) Monocytes # (Manual) PT INR POC ABG pH POC ABG pCO2 POC ABG pO2 Sodium Potassium Chloride Carbon Dioxide BUN Creatinine Glucose POC Glucose 154 H 159 H Lactic Acid Calcium Phosphorus Magnesium 1.40 L Total Bilirubin AST C-Reactive Protein Albumin Urine Creatinine Ur Creatinine 24 Hour Crossmatch 03/04/18 03/04/18 03/04/18 04:27 05:30 05:30 WBC 22.6 H RBC 2.46 L Hgb 7.1 L Hct 21.7 L MCV MCHC RDW 17.2 H Lymph % (Auto) Lymph # Seg Neutrophils % Seg Neuts % (Manual) 84.0 H Lymphocytes % (Manual) 5.0 L Monocytes % (Manual) Nucleated RBC % Seg Neutrophils # Seg Neutrophils # Man 19.0 H Lymphocytes # (Manual) 1.1 L Monocytes # (Manual) PT INR POC ABG pH 7.486 H POC ABG pCO2 24.8 L POC ABG pO2 Sodium 135 L Potassium Chloride 96.2 L Carbon Dioxide 19 L BUN 69 H Creatinine 3.1 H Glucose 121 H POC Glucose Lactic Acid Calcium 7.1 L Phosphorus Magnesium Total Bilirubin AST C-Reactive Protein 19.80 H Albumin Urine Creatinine Ur Creatinine 24 Hour Crossmatch 03/04/18 03/04/18 03/04/18 05:38 11:47 17:53 WBC RBC Hgb Hct MCV MCHC RDW Lymph % (Auto) Lymph # Seg Neutrophils % Seg Neuts % (Manual) Lymphocytes % (Manual) Monocytes % (Manual) Nucleated RBC % Seg Neutrophils # Seg Neutrophils # Man Lymphocytes # (Manual) Monocytes # (Manual) PT INR POC ABG pH POC ABG pCO2 POC ABG pO2 Sodium Potassium Chloride Carbon Dioxide BUN Creatinine Glucose POC Glucose 134 H 109 H 113 H Lactic Acid Calcium Phosphorus Magnesium Total Bilirubin AST C-Reactive Protein Albumin Urine Creatinine Ur Creatinine 24 Hour Crossmatch 03/05/18 03/05/18 03/05/18 00:22 05:15 05:15 WBC 24.3 H RBC 2.29 L Hgb 6.8 L Hct 20.3 L MCV MCHC RDW 16.7 H Lymph % (Auto) Lymph # Seg Neutrophils % Seg Neuts % (Manual) 88.0 H Lymphocytes % (Manual) 3.0 L Monocytes % (Manual) Nucleated RBC % Seg Neutrophils # Seg Neutrophils # Man 21.4 H Lymphocytes # (Manual) 0.7 L Monocytes # (Manual) PT INR POC ABG pH POC ABG pCO2 POC ABG pO2 Sodium 132 L Potassium Chloride 91.2 L Carbon Dioxide BUN 69 H Creatinine 3.3 H Glucose POC Glucose 113 H Lactic Acid Calcium 6.9 L Phosphorus Magnesium Total Bilirubin AST C-Reactive Protein Albumin Urine Creatinine Ur Creatinine 24 Hour Crossmatch 03/05/18 03/05/18 03/05/18 05:36 11:51 16:00 WBC RBC Hgb Hct MCV MCHC RDW Lymph % (Auto) Lymph # Seg Neutrophils % Seg Neuts % (Manual) Lymphocytes % (Manual) Monocytes % (Manual) Nucleated RBC % Seg Neutrophils # Seg Neutrophils # Man Lymphocytes # (Manual) Monocytes # (Manual) PT INR POC ABG pH 7.519 H POC ABG pCO2 27.0 L POC ABG pO2 68 L Sodium Potassium Chloride Carbon Dioxide BUN Creatinine Glucose POC Glucose 118 H 131 H Lactic Acid Calcium Phosphorus Magnesium Total Bilirubin AST C-Reactive Protein Albumin Urine Creatinine Ur Creatinine 24 Hour Crossmatch 03/06/18 03/06/18 03/06/18 00:00 01:27 04:44 WBC 24.5 H RBC 2.90 L Hgb 8.5 L Hct 25.8 L MCV MCHC RDW 16.3 H Lymph % (Auto) Lymph # Seg Neutrophils % Seg Neuts % (Manual) 96.0 H Lymphocytes % (Manual) 1.5 L Monocytes % (Manual) Nucleated RBC % 1.0 H Seg Neutrophils # Seg Neutrophils # Man 23.5 H Lymphocytes # (Manual) 0.4 L Monocytes # (Manual) PT INR POC ABG pH POC ABG pCO2 POC ABG pO2 Sodium Potassium Chloride 92.9 L Carbon Dioxide BUN 67 H Creatinine 3.4 H Glucose POC Glucose 127 H Lactic Acid Calcium 7.2 L Phosphorus Magnesium Total Bilirubin AST C-Reactive Protein Albumin Urine Creatinine Ur Creatinine 24 Hour Crossmatch 03/06/18 03/06/18 03/06/18 04:54 05:54 12:08 WBC RBC Hgb Hct MCV MCHC RDW Lymph % (Auto) Lymph # Seg Neutrophils % Seg Neuts % (Manual) Lymphocytes % (Manual) Monocytes % (Manual) Nucleated RBC % Seg Neutrophils # Seg Neutrophils # Man Lymphocytes # (Manual) Monocytes # (Manual) PT INR POC ABG pH 7.551 H POC ABG pCO2 29.5 L POC ABG pO2 57 L Sodium Potassium Chloride Carbon Dioxide BUN Creatinine Glucose POC Glucose 108 H 123 H Lactic Acid Calcium Phosphorus Magnesium Total Bilirubin AST C-Reactive Protein Albumin Urine Creatinine Ur Creatinine 24 Hour Crossmatch 03/06/18 03/07/18 03/07/18 21:16 05:00 05:00 WBC 17.5 H RBC 2.41 L Hgb 7.3 L Hct 21.5 L MCV MCHC RDW 16.6 H Lymph % (Auto) Lymph # Seg Neutrophils % Seg Neuts % (Manual) 97.0 H Lymphocytes % (Manual) 1.0 L Monocytes % (Manual) Nucleated RBC % Seg Neutrophils # Seg Neutrophils # Man 17.0 H Lymphocytes # (Manual) 0.2 L Monocytes # (Manual) PT INR POC ABG pH 7.639 H POC ABG pCO2 25.3 L POC ABG pO2 Sodium Potassium Chloride 90.6 L Carbon Dioxide BUN 65 H Creatinine 3.4 H Glucose POC Glucose Lactic Acid Calcium 7.3 L Phosphorus Magnesium Total Bilirubin AST C-Reactive Protein Albumin Urine Creatinine Ur Creatinine 24 Hour Crossmatch 03/07/18 03/08/18 03/08/18 06:32 04:30 11:54 WBC 13.9 H RBC 2.36 L Hgb 7.1 L Hct 21.2 L MCV MCHC RDW 16.5 H Lymph % (Auto) Lymph # Seg Neutrophils % Seg Neuts % (Manual) 91.0 H Lymphocytes % (Manual) 2.0 L Monocytes % (Manual) Nucleated RBC % Seg Neutrophils # Seg Neutrophils # Man 12.6 H Lymphocytes # (Manual) 0.3 L Monocytes # (Manual) PT INR POC ABG pH 7.498 H POC ABG pCO2 30.2 L POC ABG pO2 44 L Sodium Potassium Chloride Carbon Dioxide BUN Creatinine Glucose POC Glucose 121 H Lactic Acid Calcium Phosphorus Magnesium Total Bilirubin AST C-Reactive Protein Albumin Urine Creatinine Ur Creatinine 24 Hour Crossmatch 03/08/18 03/08/18 03/09/18 18:29 23:52 05:45 WBC 12.9 H RBC 2.31 L Hgb 6.9 L Hct 20.9 L MCV MCHC RDW 16.7 H Lymph % (Auto) 5.5 L Lymph # 0.7 L Seg Neutrophils % 89.2 H Seg Neuts % (Manual) Lymphocytes % (Manual) Monocytes % (Manual) Nucleated RBC % Seg Neutrophils # 11.5 H Seg Neutrophils # Man Lymphocytes # (Manual) Monocytes # (Manual) PT INR POC ABG pH POC ABG pCO2 POC ABG pO2 Sodium Potassium Chloride Carbon Dioxide BUN Creatinine Glucose POC Glucose 106 H 115 H Lactic Acid Calcium Phosphorus Magnesium Total Bilirubin AST C-Reactive Protein Albumin Urine Creatinine Ur Creatinine 24 Hour Crossmatch 03/09/18 03/09/18 03/09/18 06:13 12:00 12:20 WBC RBC Hgb Hct MCV MCHC RDW Lymph % (Auto) Lymph # Seg Neutrophils % Seg Neuts % (Manual) Lymphocytes % (Manual) Monocytes % (Manual) Nucleated RBC % Seg Neutrophils # Seg Neutrophils # Man Lymphocytes # (Manual) Monocytes # (Manual) PT INR POC ABG pH POC ABG pCO2 POC ABG pO2 Sodium Potassium 3.3 L Chloride 82.2 L Carbon Dioxide 19 L D BUN 62 H Creatinine 3.0 H Glucose POC Glucose 122 H 113 H Lactic Acid Calcium 6.1 L D Phosphorus Magnesium Total Bilirubin AST C-Reactive Protein Albumin Urine Creatinine Ur Creatinine 24 Hour Crossmatch 03/09/18 03/09/18 03/10/18 13:30 17:38 06:55 WBC RBC 1.94 L Hgb 6.0 L Hct 17.8 L* MCV MCHC RDW 16.6 H Lymph % (Auto) 4.6 L Lymph # 0.5 L Seg Neutrophils % 90.0 H Seg Neuts % (Manual) Lymphocytes % (Manual) Monocytes % (Manual) Nucleated RBC % Seg Neutrophils # 9.1 H Seg Neutrophils # Man Lymphocytes # (Manual) Monocytes # (Manual) PT INR POC ABG pH POC ABG pCO2 POC ABG pO2 Sodium Potassium Chloride Carbon Dioxide BUN Creatinine Glucose POC Glucose Lactic Acid Calcium Phosphorus Magnesium Total Bilirubin AST C-Reactive Protein Albumin Urine Creatinine 69.2 H 69.2 H Ur Creatinine 24 Hour 0.3 L Crossmatch 03/10/18 03/10/18 03/10/18 06:55 09:00 12:14 WBC RBC Hgb Hct MCV MCHC RDW Lymph % (Auto) Lymph # Seg Neutrophils % Seg Neuts % (Manual) Lymphocytes % (Manual) Monocytes % (Manual) Nucleated RBC % Seg Neutrophils # Seg Neutrophils # Man Lymphocytes # (Manual) Monocytes # (Manual) PT INR POC ABG pH POC ABG pCO2 POC ABG pO2 Sodium 135 L Potassium Chloride 90.2 L Carbon Dioxide BUN 82 H Creatinine 3.9 H Glucose POC Glucose 107 H Lactic Acid Calcium 7.6 L D Phosphorus Magnesium Total Bilirubin AST C-Reactive Protein Albumin Urine Creatinine Ur Creatinine 24 Hour Crossmatch See Detail Chest x-ray: image reviewed (new left IJ vascath; increased pulmonary edema and with small effusions) Allied health notes reviewed: nursing
--- NOTE | 2018-03-10 15:47 | XRay Report ---
Portable chest: Tube position. A vas catheter entering the left jugular vein is present with the tip in the low SVC. An endotracheal tube is in good position. A left PICC line tip is at the upper SVC. The heart may be slightly enlarged. There does appear to be mild vascular congestion. There are probable small bilateral effusions with mild perivascular on the right. Compared to prior examination of March 08 the PICC line has been slightly withdrawn and the vascular pattern does appear to have worsened. Impression: 1. Well-positioned vas catheter. 2. Fluid overload pattern.
--- NOTE | 2018-03-10 16:07 | Event Note ---
Date: 03/10/18 I spoke with the patient's TGenevieve Swanson (son) regarding tracheostomy placement. We discussed the indications for the procedure. He is concerned about his father's ability to withstand anesthesia in order to have the procedure. I explained to him that I will discuss his risk with the Sleeper Cutter. The patient is anemic today and is receiving 2 Units of PRBC. Will continue to trend Hb and ensure it is stable prior to undertaking the procedure. Will obtain consent in am. Percutaneous tracheostomy with fiberoptic bronchoscopy is tentatively scheduled for Tuesday02/11/18 @ 930am
--- NOTE | 2018-03-10 16:10 | Progress Note ---
Assessment and Plan Assessment: 1) Severe sepsis with septic shock: off pressors, still leukocytosis but better , no fever; source pneumonia 2) Complicated Multilobar pneumonia: due to MRSA and GAS -CT chest 03/05 josh lower lobes consolidations, no abscesses 3) Acute respiratory failure: on the vent 4) Acute encephalopathy 5) DIANNA - better 6) History of CVA 7) S/p cardiac arrest 8) New CVA - right MCA territory 9) Severe anemia? Plan: -continue zyvox IV D110/26 -stop penicillin G and Clindamycin IV D1 -monitor anemia -contact isolation I am rounding on 03/13 Thanks Mimi Lay MD Subjective Date of service: 03/10/18 Principal diagnosis: Acute Hypoxemic Resp Failure; Severe Sepsis; Aspiration Pneumonai (HCAP) Interval history: Remains on the vent, alert, off pressors, no fever Micro: Blood cx 02/26 neg Blood cx 03/04 neg Urine cx 02/26 neg Tracheal asp 02/26 MRSA and GAS x 2 Current Abx: zyvox 02/28 clinda 03/01 pen G 03/01 Previous Abx: zosyn vanco Objective - Exam Narrative Exam: Sedated eyes open on the vent NC/AT, ASH, OP with ETT, OGT Neck no LNs Lungs josh scattered rhonchi CV tachycardic Abd soft distended Ext +josh leg edema Neuro sedated Skin no rash Lines: - Constitutional Vitals: Vital Signs Temp Pulse Resp BP Pulse Ox 97.7 F 99 H 13 98/55 92 03/10/18 14:49 03/10/18 14:41 03/10/18 08:02 03/10/18 14:41 03/10/18 14:41 Temperature -Last 24 Hours Temperature 97.7 F Temperature 98 F Temperature 98 F Temperature 98.0 F Temperature 98.3 F Temperature 97.8 F Temperature 98.9 F Temperature 99.1 F - Labs CBC & Chem 7: 03/10/18 06:55 03/10/18 06:55 Labs: Abnormal lab results 03/03/18 03/09/18 03/09/18 Range/Units 08:37 12:20 13:30 RBC (3.65-5.03) M/mm3 Hgb (11.8-15.2) gm/dl Hct (35.5-45.6) % RDW (13.2-15.2) % Lymph % (Auto) (13.4-35.0) % Lymph # (1.2-5.4) K/mm3 Seg Neutrophils % (40.0-70.0) % Seg Neutrophils # (1.8-7.7) K/mm3 Sodium (137-145) mmol/L Chloride (98-107) mmol/L BUN (9-20) mg/dL Creatinine (0.8-1.5) mg/dL POC Glucose 113 H (70-105) Calcium (8.4-10.2) mg/dL Urine Creatinine 69.2 H (0.1-20.0) mg/dL Ur Creatinine 24 Hour 0.3 L (0.8-2.8) Crossmatch See Detail 03/09/18 03/10/18 03/10/18 Range/Units 17:38 06:55 06:55 RBC 1.94 L (3.65-5.03) M/mm3 Hgb 6.0 L (11.8-15.2) gm/dl Hct 17.8 L* (35.5-45.6) % RDW 16.6 H (13.2-15.2) % Lymph % (Auto) 4.6 L (13.4-35.0) % Lymph # 0.5 L (1.2-5.4) K/mm3 Seg Neutrophils % 90.0 H (40.0-70.0) % Seg Neutrophils # 9.1 H (1.8-7.7) K/mm3 Sodium 135 L (137-145) mmol/L Chloride 90.2 L (98-107) mmol/L BUN 82 H (9-20) mg/dL Creatinine 3.9 H (0.8-1.5) mg/dL POC Glucose (70-105) Calcium 7.6 L D (8.4-10.2) mg/dL Urine Creatinine 69.2 H (0.1-20.0) mg/dL Ur Creatinine 24 Hour (0.8-2.8) Crossmatch 03/10/18 03/10/18 Range/Units 09:00 12:14 RBC (3.65-5.03) M/mm3 Hgb (11.8-15.2) gm/dl Hct (35.5-45.6) % RDW (13.2-15.2) % Lymph % (Auto) (13.4-35.0) % Lymph # (1.2-5.4) K/mm3 Seg Neutrophils % (40.0-70.0) % Seg Neutrophils # (1.8-7.7) K/mm3 Sodium (137-145) mmol/L Chloride (98-107) mmol/L BUN (9-20) mg/dL Creatinine (0.8-1.5) mg/dL POC Glucose 107 H (70-105) Calcium (8.4-10.2) mg/dL Urine Creatinine (0.1-20.0) mg/dL Ur Creatinine 24 Hour (0.8-2.8) Crossmatch See Detail
[2018-03-10 20:16] LABS: Hematocrit 23.3 % (35.5-45.6); Hemoglobin 7.7 gm/dl (11.8-15.2)
[2018-03-11] MEDS: HumuLIN R SUB-Q SCH ×4 (01:25→18:30)
[2018-03-11] MEDS: fentaNYL DRIP Premix 2,000 MCG/100 ML BAG IV SCH ×3 (05:16→20:17)
[2018-03-11] MEDS: KEPPRA FEEDTUBE SCH ×2 (06:42→18:30)
[2018-03-11] MEDS: DUONEB *Not for PRN Use IH SCH ×3 (09:30→23:21)
--- NOTE | 2018-03-11 10:27 | Progress Note ---
Assessment and Plan Assessment and plan: 72-year-old male with history of cerebrovascular accident hemiplegia. Alzheimer's and nonverbal from [facility] sent for altered mental state. Since yesterday and high fever and increasing shortness of breath and respiratory distress. Patient's temperature was 103.2F in the initial evaluation in the emergency room. Patient was also severely tachypneic with respiratory rate of 40. Sudden onset. No exacerbating or relieving factors. Patient is a resident of retirement facility. Patient continued in the ICU started on broad septurm abx and later de-escalated to Zyvox for MRSA and had rapid response was called following worsening symptoms with chest compression ensuing. CT brain shows New CVA/SUBACUTE CVA, with again noted with mengioma, Neurology consulted and EEG, with extensive family conversation. Nephrology was also on board with notation of Nonoliguric acute kidney injury secondary to prerenal azotemia/ATN due to dehydration vs sepsis and Metabolic acidosis secondary to lactic acidosis among others but with no indication for MIXER BLENDER at the time. ID/slot service specialist following 03/03: Went into cardiopulmonary arrest. Resuscitated according to ACLS protocol and commenced on IV Levophed for hypotension 03/05: Pt had recurrent seizure over the night and CT head showed right MCA acute /subacute stroke and calcified meningioma in the left frontal area Acute right MCA stroke * Neurology pending consulted and input noted * EEG, WITH anti-seizure meds Septic Shock * follow cultures * Continue Zyvox and Pen G and Clinda * continue isolation per ID * off pressors Anemia * Transfuse as needed * will give 2 units * Recheck H/H in am Cardiopulmonary arrest * Resuscitated according to ACLS protocol * Commenced on Levophed drip for hypotension Acute Hypoxemic Respiratory Failure * Continues on mechanical ventilation >96HRS * Pulmonary following. * Aspiration precautions * Trach planned for 03/14 * MRSA on sputum * Continue nebs, now off solumedrol Aspiration Pneumonia- Multilobar * Continue abx as noted above * Cultures showing MRSA, GAS * PCN AND CLINDAMYCIN ADDED * CONTACT ISOATION Acute ON CHRONIC Encephalopathy * patient with alzhimers disease Acute Kidney injury * Likely secondary to ATN * improved Sacral Pressure ulcer * wound care consult Hypernatermia * Resolving Diabetes. * Continue sliding scale coverage History of Alzheimer dementia. BPH * Continue Finasterid Hyperlipidemia * continue statin CVA PER HX-WITH LEFT SIDED HEMIPLEGIA * Complete immobility due to frailty per documentation ANEMIA * Of chronic disease, monitor closely s/p 3 units PRBC DVT/GI prophy Discussed with son. Poor prognosis Plan for LTAC eval CONTINUE [employer] SAF[employer] The high probability of a clinically significant, sudden or life threatening deterioration of the [PULMONARY] system(s) required my full and direct attention , intervention and personal management. The aggregate critical care time was [45 ] minutes. This time is in addition to time spent performing reported procedures but includes the following: [X] Data Review and interpretation [X] Patient assessment and monitoring of vital signs [X] Documentation [X] Medication orders and management History Interval history: Patient seen and examined, remains intubated, opens eyes to verbal stimuli but not following any commands. pressors off, son at bedside with surgeon discussing Trach options Hospitalist Physical - Physical exam Narrative exam: VITAL SIGNS: Reviewed. GENERAL: The patient appeared Chronically ill, on mechanical ventilation. Vital signs as documented. HEAD: No signs of head trauma. Marked temporal wasting EYES: Pupils are equal. Extraocular motions intact. EARS: Hearing grossly intact. MOUTH: ETT NECK: No adenopathy, no JVD. CHEST: Chest with crackles breath sounds bilaterally bases. CARDIAC: Regular rate and rhythm. S1 and S2, without murmurs, gallops, or rubs. VASCULAR: No Edema. Peripheral pulses normal and equal in all extremities. ABDOMEN: Soft, without detectable tenderness. No sign of distention. No rebound or guarding, and no masses palpated. Bowel Sounds normal. MUSCULOSKELETAL: Extremities without clubbing, cyanosis or edema. NEUROLOGIC EXAM: Awake, but lethargic. Unable to examine. Left sided weakness. focal deficits, severely altered sensorium and nearly unresponsive PSYCHIATRIC: unable to assess. SKIN: Pressure Ulcer - Constitutional Vitals: Temp Pulse Resp BP Pulse Ox 98.4 F 115 H 26 H 96/55 92 03/11/18 08:00 03/11/18 09:47 03/11/18 09:47 03/11/18 07:59 03/11/18 07:59 General appearance: Present: no acute distress, well-nourished Results - Labs CBC & Chem 7: 03/10/18 20:02 03/11/18 14:25 Labs: Laboratory Last Values WBC 10.2 K/mm3 (4.5-11.0) 03/10/18 06:55 RBC 1.94 M/mm3 (3.65-5.03) L 03/10/18 06:55 Hgb 7.7 gm/dl (11.8-15.2) L 03/10/18 20:02 Hct 23.3 % (35.5-45.6) L 03/10/18 20:02 MCV 92 fl (84-94) 03/10/18 06:55 MCH 31 pg (28-32) 03/10/18 06:55 MCHC 34 % (32-34) 03/10/18 06:55 RDW 16.6 % (13.2-15.2) H 03/10/18 06:55 Plt Count 159 K/mm3 (140-440) 03/10/18 06:55 Lymph % (Auto) 4.6 % (13.4-35.0) L 03/10/18 06:55 [place] % (Auto) 3.1 % (0.0-7.3) 03/10/18 06:55 Eos % (Auto) 1.9 % (0.0-4.3) 03/10/18 06:55 Baso % (Auto) 0.4 % (0.0-1.8) 03/10/18 06:55 Lymph # 0.5 K/mm3 (1.2-5.4) L 03/10/18 06:55 [place] # 0.3 K/mm3 (0.0-0.8) 03/10/18 06:55 Eos # 0.2 K/mm3 (0.0-0.4) 03/10/18 06:55 Baso # 0.0 K/mm3 (0.0-0.1) 03/10/18 06:55 Add Manual Diff Complete 03/08/18 04:30 Total Counted 100 03/08/18 04:30 Seg Neutrophils % 90.0 % (40.0-70.0) H 03/10/18 06:55 Seg Neuts % (Manual) 91.0 % (40.0-70.0) H 03/08/18 04:30 Band Neutrophils % 1.0 % 03/08/18 04:30 Lymphocytes % (Manual) 2.0 % (13.4-35.0) L 03/08/18 04:30 Reactive Lymphs % (Man) 0 % 03/08/18 04:30 Monocytes % (Manual) 4.0 % (0.0-7.3) 03/08/18 04:30 Eosinophils % (Manual) 0 % (0.0-4.3) 03/08/18 04:30 Basophils % (Manual) 1.0 % (0.0-1.8) 03/08/18 04:30 Metamyelocytes % 0 % 03/08/18 04:30 Myelocytes % 1.0 % 03/08/18 04:30 Promyelocytes % 0 % 03/08/18 04:30 Blast Cells % 0 % 03/08/18 04:30 Nucleated RBC % Not Reportable 03/08/18 04:30 Seg Neutrophils # 9.1 K/mm3 (1.8-7.7) H 03/10/18 06:55 Seg Neutrophils # Man 12.6 K/mm3 (1.8-7.7) H 03/08/18 04:30 Band Neutrophils # 0.1 K/mm3 03/08/18 04:30 Lymphocytes # (Manual) 0.3 K/mm3 (1.2-5.4) L 03/08/18 04:30 Abs React Lymphs (Man) 0.0 K/mm3 03/08/18 04:30 Monocytes # (Manual) 0.6 K/mm3 (0.0-0.8) 03/08/18 04:30 Eosinophils # (Manual) 0.0 K/mm3 (0.0-0.4) 03/08/18 04:30 Basophils # (Manual) 0.1 K/mm3 (0.0-0.1) 03/08/18 04:30 Metamyelocytes # 0.0 K/mm3 03/08/18 04:30 Myelocytes # 0.1 K/mm3 03/08/18 04:30 Promyelocytes # 0.0 K/mm3 03/08/18 04:30 Blast Cells # 0.0 K/mm3 03/08/18 04:30 WBC Morphology Not Reportable 03/08/18 04:30 Hypersegmented Neuts Not Reportable 03/08/18 04:30 Hyposegmented Neuts Not Reportable 03/08/18 04:30 Hypogranular Neuts Not Reportable 03/08/18 04:30 Smudge Cells Not Reportable 03/08/18 04:30 Toxic Granulation Not Reportable 03/08/18 04:30 Toxic Vacuolation Not Reportable 03/08/18 04:30 Dohle Bodies Not Reportable 03/08/18 04:30 Pelger-Huet Anomaly Not Reportable 03/08/18 04:30 Erwin Rods Not Reportable 03/08/18 04:30 Platelet Estimate Consistent w auto 03/08/18 04:30 Clumped Platelets Not Reportable 03/08/18 04:30 Plt Clumps, EDTA Not Reportable 03/08/18 04:30 Large Platelets Not Reportable 03/08/18 04:30 Giant Platelets Not Reportable 03/08/18 04:30 Platelet Satelliting Not Reportable 03/08/18 04:30 Plt Morphology Comment Not Reportable 03/08/18 04:30 RBC Morphology Not Reportable 03/08/18 04:30 Dimorphic RBCs Not Reportable 03/08/18 04:30 Polychromasia Not Reportable 03/08/18 04:30 Hypochromasia Not Reportable 03/08/18 04:30 Poikilocytosis Not Reportable 03/08/18 04:30 Anisocytosis Not Reportable 03/08/18 04:30 Microcytosis Not Reportable 03/08/18 04:30 Macrocytosis Not Reportable 03/08/18 04:30 Spherocytes Not Reportable 03/08/18 04:30 Pappenheimer Bodies Not Reportable 03/08/18 04:30 Sickle Cells Not Reportable 03/08/18 04:30 Target Cells 1+ 03/08/18 04:30 Tear Drop Cells Not Reportable 03/08/18 04:30 Ovalocytes Not Reportable 03/08/18 04:30 Stomatocytes Few 02/28/18 09:00 Helmet Cells Not Reportable 03/08/18 04:30 [place] Bodies Not Reportable 03/08/18 04:30 [place] Rings Not Reportable 03/08/18 04:30 [place] Cells Not Reportable 03/08/18 04:30 Bite Cells Not Reportable 03/08/18 04:30 Crenated Cell Not Reportable 03/08/18 04:30 Elliptocytes Not Reportable 03/08/18 04:30 Acanthocytes (Spur) Not Reportable 03/08/18 04:30 Rouleaux Not Reportable 03/08/18 04:30 Hemoglobin C Crystals Not Reportable 03/08/18 04:30 Schistocytes Not Reportable 03/08/18 04:30 Malaria parasites Not Reportable 03/08/18 04:30 Aric Bodies Not Reportable 03/08/18 04:30 Hem Pathologist Commnt No 03/08/18 04:30 PT 21.5 Sec. (12.2-14.9) H 02/26/18 20:50 INR 1.75 (0.87-1.13) H 02/26/18 20:50 POC ABG pH 7.498 (7.35-7.45) H 03/08/18 11:54 POC ABG pCO2 30.2 (35-45) L 03/08/18 11:54 POC ABG pO2 44 (80-105) L 03/08/18 11:54 POC ABG HCO3 23.4 03/08/18 11:54 POC ABG Total CO2 24 03/08/18 11:54 POC ABG O2 Sat 85 03/08/18 11:54 POC ABG Base Excess 0 03/08/18 11:54 VBG pH 7.406 (7.320-7.420) 02/25/18 23:15 FiO2 30 % 03/08/18 11:54 Sodium 135 mmol/L (137-145) L 03/10/18 06:55 Potassium 4.2 mmol/L (3.6-5.0) D 03/10/18 06:55 Chloride 90.2 mmol/L (98-107) L 03/10/18 06:55 Carbon Dioxide 24 mmol/L (22-30) 03/10/18 06:55 Anion Gap 25 mmol/L 03/10/18 06:55 BUN 82 mg/dL (9-20) H 03/10/18 06:55 Creatinine 3.9 mg/dL (0.8-1.5) H 03/10/18 06:55 Estimated GFR 19 ml/min 03/10/18 06:55 BUN/Creatinine Ratio 21 % 03/10/18 06:55 Glucose 88 mg/dL (75-100) 03/10/18 06:55 POC Glucose 93 (70-105) 03/11/18 05:16 Lactic Acid 3.10 mmol/L (0.7-2.0) H* 02/28/18 07:04 Calcium 7.6 mg/dL (8.4-10.2) L D 03/10/18 06:55 Phosphorus 5.10 mg/dL (2.5-4.5) H 03/03/18 04:30 Magnesium 1.40 mg/dL (1.7-2.3) L 03/03/18 12:37 Total Bilirubin 4.50 mg/dL (0.1-1.2) H 02/26/18 07:39 AST 105 units/L (5-40) H 02/26/18 07:39 ALT 48 units/L (7-56) 02/26/18 07:39 Alkaline Phosphatase 109 units/L (35-129) 02/26/18 07:39 C-Reactive Protein 19.80 mg/dL (0.00-1.30) H 03/04/18 05:30 Total Protein 6.4 g/dL (6.3-8.2) 02/26/18 07:39 Albumin 2.4 g/dL (3.9-5) L 02/26/18 07:39 Albumin/Globulin Ratio 0.6 % 02/26/18 07:39 Lipase 35 units/L (13-60) 02/26/18 02:58 TSH 2.670 mlU/mL (0.270-4.200) 02/26/18 00:10 Free T4 1.26 ng/dL (0.76-1.46) 02/26/18 00:10 Urine Color [place] (Yellow) 02/26/18 00:32 Urine Turbidity Hazy (Clear) 02/26/18 00:32 Urine pH 5.0 (5.0-7.0) 02/26/18 00:32 Ur Specific [place] 1.015 (1.003-1.030) 02/26/18 00:32 Urine Protein <15 mg/dl mg/dL (Negative) 02/26/18 00:32 Urine Glucose (UA) Neg mg/dL (Negative) 02/26/18 00:32 Urine Ketones Neg mg/dL (Negative) 02/26/18 00:32 Urine Blood Neg (Negative) 02/26/18 00:32 Urine Nitrite Neg (Negative) 02/26/18 00:32 Urine Bilirubin Neg (Negative) 02/26/18 00:32 Urine Urobilinogen 4.0 mg/dL (<2.0) 02/26/18 00:32 Ur Leukocyte Esterase Neg (Negative) 02/26/18 00:32 Urine WBC (Auto) 1.0 /HPF (0.0-6.0) 02/26/18 00:32 Urine RBC (Auto) 1.0 /HPF (0.0-6.0) 02/26/18 00:32 U Epithel Cells (Auto) 1.0 /HPF (0-13.0) 02/26/18 00:32 Amorphous Crystals 3+ 02/26/18 00:32 Hyaline Casts 4 /LPF 02/26/18 00:32 Urine Mucus Few /HPF 02/26/18 00:32 Urine Total Volume 490 03/09/18 17:38 Urine Creatinine 69.2 mg/dL (0.1-20.0) H 03/09/18 17:38 Ur Creatinine 24 Hour 0.3 (0.8-2.8) L 03/09/18 13:30 Height (in) 67.0 inches 03/09/18 17:38 Weight (lb) 159.0 lbs 03/09/18 17:38 Creatinine Clearance 7 03/09/18 17:38 Urine Sodium 67 mmol/L 02/26/18 13:08 Blood Type A POSITIVE 03/10/18 09:00 Antibody Screen Negative 03/10/18 09:00 Crossmatch See Detail 03/10/18 09:00
[2018-03-11] MEDS: ZYVOX PO SCH ×2 (10:42→22:15)
[2018-03-11] MEDS: BABY ASPIRIN PO SCH (10:42)
[2018-03-11] MEDS: PEPCID PO SCH (10:42)
[2018-03-11] MEDS: ALBURX 25% (ALBUMIN) IV SCH ×2 (10:42→22:14)
[2018-03-11] MEDS: HEPARIN SUB-Q SCH ×2 (10:43→22:15)
[2018-03-11] MEDS: SODIUM CHLORIDE FLUSH SYRINGE 10 ML IV SCH (10:43)
--- NOTE | 2018-03-11 10:56 | Progress Note ---
Assessment and Plan Severe sepsis with septic shock. Aspiration pneumonia, healthcare associated. Acute hypoxemic respiratory failure on MVS Acute/subacute right MCA stroke Acute on chronic encephalopathy. Acute on chronic kidney injury s/p LIJ HD catheter, HD initiated Anemia. Hypernatremia. Metabolic acidosis/lactic acidosis. Leukocytosis History of hypertension. History of diabetes. History of Alzheimer dementia. 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 Gomez( surgery service), tracheostomy for TuesdayMarch 14 Discussed with Renal, will get another session of HD today. The high probability of a clinically significant, sudden or life threatening deterioration of the [cardiac, neurology, respiratory and GI] system(s) required my full and direct attention, intervention and personal management. The aggregate critical care time was [35] minutes without overlap. Time includes spent on; [x] Data Review and interpretation [x] Patient assessment and monitoring of vital signs [x] Documentation [x] Medication orders and management Subjective Date of service: 03/11/18 Principal diagnosis: Acute Hypoxemic Resp Failure; Severe Sepsis; Aspiration Pneumonai (HCAP) Interval history: Patient is seen today for: Acute Hypoxemic Resp Failure; Severe Sepsis; Aspiration Pneumonai (HCAP) Seen and examined at bedside; 24hour events reviewed; nursing and respiratory care staff consulted; no adverse overnight events reported to me; remains on MVS ; azotemia is persistent and pulmonary edema was worsening with increasing FiO2 needs s/p LIJ HD catheter, s/p HD yesterday with some improvement in ventilatory requirements; AMS is persistent; no gross bleeding ; No new issues otherwise . Objective Vital Signs - 12hr 03/10/18 03/10/18 03/10/18 23:00 23:03 23:07 Temperature Pulse Rate 102 H 102 H Pulse Rate [ 100 H Anterior Bilateral Throughout] Pulse Rate [ From Monitor] Respiratory 12 Rate Respiratory 13 Rate [Anterior Bilateral Throughout] Blood Pressure 106/62 106/62 O2 Sat by Pulse 97 98 Oximetry 03/10/18 03/10/18 03/10/18 23:15 23:17 23:30 Temperature 99 F Pulse Rate 102 H Pulse Rate [ 103 H Anterior Bilateral Throughout] Pulse Rate [ From Monitor] Respiratory 12 Rate Respiratory 13 Rate [Anterior Bilateral Throughout] Blood Pressure 106/62 O2 Sat by Pulse 97 Oximetry 03/10/18 03/10/18 03/10/18 23:31 23:37 23:45 Temperature Pulse Rate 103 H 108 H 105 H Pulse Rate [ Anterior Bilateral Throughout] Pulse Rate [ From Monitor] Respiratory 12 12 Rate Respiratory Rate [Anterior Bilateral Throughout] Blood Pressure 106/62 106/62 O2 Sat by Pulse 97 96 Oximetry 03/10/18 03/10/18 03/11/18 23:47 23:56 00:00 Temperature Pulse Rate 105 H 105 H Pulse Rate [ Anterior Bilateral Throughout] Pulse Rate [ 100 H From Monitor] Respiratory 12 12 13 Rate Respiratory Rate [Anterior Bilateral Throughout] Blood Pressure 106/62 105/59 O2 Sat by Pulse 96 93 96 Oximetry 03/11/18 03/11/18 03/11/18 01:00 02:00 03:00 Temperature Pulse Rate 104 H 106 H 105 H Pulse Rate [ Anterior Bilateral Throughout] Pulse Rate [ From Monitor] Respiratory 16 14 14 Rate Respiratory Rate [Anterior Bilateral Throughout] Blood Pressure 105/59 103/58 104/55 O2 Sat by Pulse 96 94 93 Oximetry 03/11/18 03/11/18 03/11/18 03:17 04:00 04:36 Temperature 98.1 F Pulse Rate 106 H 105 H Pulse Rate [ Anterior Bilateral Throughout] Pulse Rate [ 102 H From Monitor] Respiratory 18 14 Rate Respiratory Rate [Anterior Bilateral Throughout] Blood Pressure 104/55 109/63 O2 Sat by Pulse 94 92 94 Oximetry 03/11/18 03/11/18 03/11/18 05:00 06:01 07:59 Temperature Pulse Rate 105 H 121 H 109 H Pulse Rate [ Anterior Bilateral Throughout] Pulse Rate [ From Monitor] Respiratory 15 24 Rate Respiratory Rate [Anterior Bilateral Throughout] Blood Pressure 100/57 140/83 96/55 O2 Sat by Pulse 92 89 92 Oximetry 03/11/18 03/11/18 03/11/18 08:00 09:30 09:47 Temperature 98.4 F Pulse Rate Pulse Rate [ 113 H 115 H Anterior Bilateral Throughout] Pulse Rate [ From Monitor] Respiratory Rate Respiratory 28 H 26 H Rate [Anterior Bilateral Throughout] Blood Pressure O2 Sat by Pulse Oximetry Constitutional: appears uncomfortable, other (elderly looking AAM, normocephalic and atraumatic on MVS with increased respiratory effort) Eyes: non-icteric ENT: oropharynx moist, other (ETT 24 cm TERESA) Neck: supple, no lymphadenopathy, no JVD, other (no thyromegaly) Effort: mildly labored Ascultation: Bilateral: diminished breath sounds, rales Percussion: Bilateral: not dull Cardiovascular: regular rate and rhythm, other (No R/M, S1,S2) Gastrointestinal: normoactive bowel sounds, soft, non-tender, non-distended, other (+ PEG; No HSM, scrotal edema) Integumentary: other (edema) Extremities: no cyanosis, no edema, pulses normal, no ischemia or petechiae Neurologic: pupils equal and round, unable to assess, other (left hemiplegia post prior CVA, opens eyes to verbal and tactile stimuli) Psychiatric: other (unable to assess re: encephalopathy) CBC and BMP: 03/10/18 20:02 03/11/18 14:25 ABG, PT/INR, D-dimer: ABG POC ABG pH 7.498 (7.35-7.45) H 03/08/18 11:54 POC ABG pCO2 30.2 (35-45) L 03/08/18 11:54 POC ABG pO2 44 (80-105) L 03/08/18 11:54 POC ABG HCO3 23.4 03/08/18 11:54 POC ABG Total CO2 24 03/08/18 11:54 POC ABG O2 Sat 85 03/08/18 11:54 PT/INR, D-dimer PT 21.5 Sec. (12.2-14.9) H 02/26/18 20:50 INR 1.75 (0.87-1.13) H 02/26/18 20:50 Abnormal lab findings: Abnormal Labs 02/25/18 02/25/18 02/25/18 23:15 23:15 23:15 WBC 12.3 H RBC 3.56 L Hgb 10.2 L Hct 33.7 L MCV 95 H MCHC 30 L RDW 17.7 H Lymph % (Auto) Lymph # Seg Neutrophils % Seg Neuts % (Manual) 35.0 L Lymphocytes % (Manual) 13.0 L Monocytes % (Manual) 8.0 H Nucleated RBC % Seg Neutrophils # Seg Neutrophils # Man Lymphocytes # (Manual) Monocytes # (Manual) 1.0 H PT 20.3 H INR 1.63 H POC ABG pH POC ABG pCO2 POC ABG pO2 Sodium 152 H Potassium Chloride 108.7 H Carbon Dioxide 18 L BUN 136 H Creatinine 5.2 H Glucose POC Glucose Lactic Acid Calcium 8.0 L Phosphorus Magnesium Total Bilirubin 4.50 H AST 83 H C-Reactive Protein Albumin 2.7 L Urine Creatinine Ur Creatinine 24 Hour Crossmatch 02/25/18 02/25/18 02/26/18 23:15 23:30 03:06 WBC RBC Hgb Hct MCV MCHC RDW Lymph % (Auto) Lymph # Seg Neutrophils % Seg Neuts % (Manual) Lymphocytes % (Manual) Monocytes % (Manual) Nucleated RBC % Seg Neutrophils # Seg Neutrophils # Man Lymphocytes # (Manual) Monocytes # (Manual) PT INR POC ABG pH POC ABG pCO2 25.2 L POC ABG pO2 69 L Sodium Potassium Chloride Carbon Dioxide BUN Creatinine Glucose POC Glucose Lactic Acid 7.00 H* 9.70 H* Calcium Phosphorus Magnesium Total Bilirubin AST C-Reactive Protein Albumin Urine Creatinine Ur Creatinine 24 Hour Crossmatch 02/26/18 02/26/18 02/26/18 05:12 05:43 07:39 WBC 23.7 H RBC 3.27 L Hgb 9.3 L Hct 31.1 L MCV 95 H MCHC 30 L RDW 17.4 H Lymph % (Auto) Lymph # Seg Neutrophils % Seg Neuts % (Manual) Lymphocytes % (Manual) 2.0 L Monocytes % (Manual) Nucleated RBC % 1.0 H Seg Neutrophils # Seg Neutrophils # Man 16.1 H Lymphocytes # (Manual) 0.5 L Monocytes # (Manual) 1.2 H PT INR POC ABG pH POC ABG pCO2 19.5 L POC ABG pO2 72 L Sodium Potassium Chloride Carbon Dioxide BUN Creatinine Glucose POC Glucose Lactic Acid 8.80 H* Calcium Phosphorus Magnesium Total Bilirubin AST C-Reactive Protein Albumin Urine Creatinine Ur Creatinine 24 Hour Crossmatch 02/26/18 02/26/18 02/26/18 07:39 12:06 13:08 WBC RBC Hgb Hct MCV MCHC RDW Lymph % (Auto) Lymph # Seg Neutrophils % Seg Neuts % (Manual) Lymphocytes % (Manual) Monocytes % (Manual) Nucleated RBC % Seg Neutrophils # Seg Neutrophils # Man Lymphocytes # (Manual) Monocytes # (Manual) PT INR POC ABG pH POC ABG pCO2 27.8 L POC ABG pO2 168 H Sodium 155 H Potassium Chloride 114.2 H Carbon Dioxide 14 L BUN 120 H Creatinine 4.6 H Glucose 108 H POC Glucose Lactic Acid Calcium 7.7 L Phosphorus Magnesium Total Bilirubin 4.50 H AST 105 H C-Reactive Protein Albumin 2.4 L Urine Creatinine 38.6 H Ur Creatinine 24 Hour Crossmatch 02/26/18 02/26/18 02/26/18 18:41 20:50 20:50 WBC RBC Hgb Hct MCV MCHC RDW Lymph % (Auto) Lymph # Seg Neutrophils % Seg Neuts % (Manual) Lymphocytes % (Manual) Monocytes % (Manual) Nucleated RBC % Seg Neutrophils # Seg Neutrophils # Man Lymphocytes # (Manual) Monocytes # (Manual) PT 21.5 H INR 1.75 H POC ABG pH POC ABG pCO2 POC ABG pO2 Sodium Potassium Chloride Carbon Dioxide BUN Creatinine Glucose POC Glucose 135 H Lactic Acid Calcium Phosphorus Magnesium Total Bilirubin AST C-Reactive Protein 33.90 H Albumin Urine Creatinine Ur Creatinine 24 Hour Crossmatch 02/27/18 02/27/18 02/27/18 03:39 04:56 04:56 WBC 20.1 H RBC 2.92 L Hgb 8.4 L Hct 27.5 L MCV MCHC 31 L RDW 17.1 H Lymph % (Auto) Lymph # Seg Neutrophils % Seg Neuts % (Manual) 92.0 H Lymphocytes % (Manual) 3.0 L Monocytes % (Manual) Nucleated RBC % Seg Neutrophils # Seg Neutrophils # Man 18.5 H Lymphocytes # (Manual) 0.6 L Monocytes # (Manual) PT INR POC ABG pH 7.453 H POC ABG pCO2 27.2 L POC ABG pO2 Sodium 149 H Potassium Chloride 113.1 H Carbon Dioxide 18 L BUN 103 H Creatinine 3.8 H Glucose 120 H POC Glucose Lactic Acid Calcium 7.8 L Phosphorus Magnesium Total Bilirubin AST C-Reactive Protein Albumin Urine Creatinine Ur Creatinine 24 Hour Crossmatch 02/27/18 02/27/18 02/27/18 12:37 12:45 17:51 WBC RBC Hgb Hct MCV MCHC RDW Lymph % (Auto) Lymph # Seg Neutrophils % Seg Neuts % (Manual) Lymphocytes % (Manual) Monocytes % (Manual) Nucleated RBC % Seg Neutrophils # Seg Neutrophils # Man Lymphocytes # (Manual) Monocytes # (Manual) PT INR POC ABG pH POC ABG pCO2 POC ABG pO2 Sodium Potassium Chloride Carbon Dioxide BUN Creatinine Glucose POC Glucose 169 H 133 H Lactic Acid 2.90 H* Calcium Phosphorus Magnesium Total Bilirubin AST C-Reactive Protein Albumin Urine Creatinine Ur Creatinine 24 Hour Crossmatch 02/28/18 02/28/18 02/28/18 00:23 05:00 05:02 WBC RBC Hgb Hct MCV MCHC RDW Lymph % (Auto) Lymph # Seg Neutrophils % Seg Neuts % (Manual) Lymphocytes % (Manual) Monocytes % (Manual) Nucleated RBC % Seg Neutrophils # Seg Neutrophils # Man Lymphocytes # (Manual) Monocytes # (Manual) PT INR POC ABG pH POC ABG pCO2 POC ABG pO2 Sodium Potassium Chloride Carbon Dioxide BUN Creatinine Glucose POC Glucose 161 H 116 H Lactic Acid 2.70 H* Calcium Phosphorus Magnesium Total Bilirubin AST C-Reactive Protein Albumin Urine Creatinine Ur Creatinine 24 Hour Crossmatch 02/28/18 02/28/18 02/28/18 05:28 07:04 09:00 WBC 22.3 H RBC 2.63 L Hgb 7.6 L Hct 24.1 L MCV MCHC 31 L RDW 17.4 H Lymph % (Auto) Lymph # Seg Neutrophils % Seg Neuts % (Manual) 84.0 H Lymphocytes % (Manual) 8.0 L Monocytes % (Manual) Nucleated RBC % Seg Neutrophils # Seg Neutrophils # Man 18.7 H Lymphocytes # (Manual) Monocytes # (Manual) 1.1 H PT INR POC ABG pH 7.477 H POC ABG pCO2 24.6 L POC ABG pO2 57 L Sodium Potassium Chloride Carbon Dioxide BUN Creatinine Glucose POC Glucose Lactic Acid 3.10 H* Calcium Phosphorus Magnesium Total Bilirubin AST C-Reactive Protein Albumin Urine Creatinine Ur Creatinine 24 Hour Crossmatch 02/28/18 02/28/18 02/28/18 09:00 11:36 17:10 WBC RBC Hgb Hct MCV MCHC RDW Lymph % (Auto) Lymph # Seg Neutrophils % Seg Neuts % (Manual) Lymphocytes % (Manual) Monocytes % (Manual) Nucleated RBC % Seg Neutrophils # Seg Neutrophils # Man Lymphocytes # (Manual) Monocytes # (Manual) PT INR POC ABG pH POC ABG pCO2 POC ABG pO2 Sodium Potassium 3.3 L 3.5 L Chloride Carbon Dioxide 21 L 19 L BUN 76 H 69 H Creatinine 2.8 H 2.5 H Glucose 104 H 124 H POC Glucose 107 H Lactic Acid Calcium 7.6 L 7.3 L Phosphorus 1.50 L Magnesium Total Bilirubin AST C-Reactive Protein Albumin Urine Creatinine Ur Creatinine 24 Hour Crossmatch 02/28/18 02/28/18 03/01/18 17:36 23:40 06:25 WBC RBC Hgb Hct MCV MCHC RDW Lymph % (Auto) Lymph # Seg Neutrophils % Seg Neuts % (Manual) Lymphocytes % (Manual) Monocytes % (Manual) Nucleated RBC % Seg Neutrophils # Seg Neutrophils # Man Lymphocytes # (Manual) Monocytes # (Manual) PT INR POC ABG pH 7.542 H POC ABG pCO2 23.3 L POC ABG pO2 62 L Sodium Potassium Chloride Carbon Dioxide BUN Creatinine Glucose POC Glucose 151 H 111 H Lactic Acid Calcium Phosphorus Magnesium Total Bilirubin AST C-Reactive Protein Albumin Urine Creatinine Ur Creatinine 24 Hour Crossmatch 03/01/18 03/01/18 03/02/18 10:00 12:12 05:21 WBC RBC Hgb Hct MCV MCHC RDW Lymph % (Auto) Lymph # Seg Neutrophils % Seg Neuts % (Manual) Lymphocytes % (Manual) Monocytes % (Manual) Nucleated RBC % Seg Neutrophils # Seg Neutrophils # Man Lymphocytes # (Manual) Monocytes # (Manual) PT INR POC ABG pH 7.473 H POC ABG pCO2 21.5 L POC ABG pO2 79 L Sodium Potassium 3.5 L Chloride Carbon Dioxide 18 L BUN 66 H Creatinine 2.8 H Glucose 103 H POC Glucose 176 H Lactic Acid Calcium 7.5 L Phosphorus Magnesium Total Bilirubin AST C-Reactive Protein Albumin Urine Creatinine Ur Creatinine 24 Hour Crossmatch 03/02/18 03/02/18 03/02/18 06:00 06:00 11:47 WBC 18.2 H RBC 2.43 L Hgb 7.2 L Hct 22.6 L MCV MCHC RDW 17.6 H Lymph % (Auto) Lymph # Seg Neutrophils % Seg Neuts % (Manual) Lymphocytes % (Manual) Monocytes % (Manual) Nucleated RBC % Seg Neutrophils # Seg Neutrophils # Man Lymphocytes # (Manual) Monocytes # (Manual) PT INR POC ABG pH POC ABG pCO2 POC ABG pO2 Sodium Potassium Chloride Carbon Dioxide 17 L BUN 68 H Creatinine 3.1 H Glucose 106 H POC Glucose 136 H Lactic Acid Calcium 7.2 L Phosphorus Magnesium Total Bilirubin AST C-Reactive Protein Albumin Urine Creatinine Ur Creatinine 24 Hour Crossmatch 03/02/18 03/03/18 03/03/18 17:35 00:54 03:38 WBC RBC Hgb Hct MCV MCHC RDW Lymph % (Auto) Lymph # Seg Neutrophils % Seg Neuts % (Manual) Lymphocytes % (Manual) Monocytes % (Manual) Nucleated RBC % Seg Neutrophils # Seg Neutrophils # Man Lymphocytes # (Manual) Monocytes # (Manual) PT INR POC ABG pH 7.451 H POC ABG pCO2 20.5 L POC ABG pO2 Sodium Potassium Chloride Carbon Dioxide BUN Creatinine Glucose POC Glucose 109 H 131 H Lactic Acid Calcium Phosphorus Magnesium Total Bilirubin AST C-Reactive Protein Albumin Urine Creatinine Ur Creatinine 24 Hour Crossmatch 03/03/18 03/03/18 03/03/18 04:30 06:15 06:15 WBC 21.1 H RBC 2.20 L Hgb 6.3 L Hct 20.8 L MCV 95 H MCHC 30 L RDW 17.8 H Lymph % (Auto) Lymph # Seg Neutrophils % Seg Neuts % (Manual) 71.0 H Lymphocytes % (Manual) 8.0 L Monocytes % (Manual) Nucleated RBC % Seg Neutrophils # Seg Neutrophils # Man 15.0 H Lymphocytes # (Manual) Monocytes # (Manual) 1.3 H PT INR POC ABG pH POC ABG pCO2 POC ABG pO2 Sodium 130 L D Potassium Chloride 96.4 L Carbon Dioxide 14 L BUN 69 H Creatinine 3.1 H Glucose POC Glucose Lactic Acid Calcium 7.0 L Phosphorus 5.10 H Magnesium Total Bilirubin AST C-Reactive Protein Albumin Urine Creatinine Ur Creatinine 24 Hour Crossmatch 03/03/18 03/03/18 03/03/18 08:37 09:38 12:13 WBC RBC Hgb Hct MCV MCHC RDW Lymph % (Auto) Lymph # Seg Neutrophils % Seg Neuts % (Manual) Lymphocytes % (Manual) Monocytes % (Manual) Nucleated RBC % Seg Neutrophils # Seg Neutrophils # Man Lymphocytes # (Manual) Monocytes # (Manual) PT INR POC ABG pH POC ABG pCO2 23.8 L POC ABG pO2 156 H Sodium Potassium Chloride Carbon Dioxide BUN Creatinine Glucose POC Glucose 119 H Lactic Acid Calcium Phosphorus Magnesium Total Bilirubin AST C-Reactive Protein Albumin Urine Creatinine Ur Creatinine 24 Hour Crossmatch See Detail 03/03/18 03/03/18 03/04/18 12:37 18:05 00:59 WBC RBC Hgb Hct MCV MCHC RDW Lymph % (Auto) Lymph # Seg Neutrophils % Seg Neuts % (Manual) Lymphocytes % (Manual) Monocytes % (Manual) Nucleated RBC % Seg Neutrophils # Seg Neutrophils # Man Lymphocytes # (Manual) Monocytes # (Manual) PT INR POC ABG pH POC ABG pCO2 POC ABG pO2 Sodium Potassium Chloride Carbon Dioxide BUN Creatinine Glucose POC Glucose 154 H 159 H Lactic Acid Calcium Phosphorus Magnesium 1.40 L Total Bilirubin AST C-Reactive Protein Albumin Urine Creatinine Ur Creatinine 24 Hour Crossmatch 03/04/18 03/04/18 03/04/18 04:27 05:30 05:30 WBC 22.6 H RBC 2.46 L Hgb 7.1 L Hct 21.7 L MCV MCHC RDW 17.2 H Lymph % (Auto) Lymph # Seg Neutrophils % Seg Neuts % (Manual) 84.0 H Lymphocytes % (Manual) 5.0 L Monocytes % (Manual) Nucleated RBC % Seg Neutrophils # Seg Neutrophils # Man 19.0 H Lymphocytes # (Manual) 1.1 L Monocytes # (Manual) PT INR POC ABG pH 7.486 H POC ABG pCO2 24.8 L POC ABG pO2 Sodium 135 L Potassium Chloride 96.2 L Carbon Dioxide 19 L BUN 69 H Creatinine 3.1 H Glucose 121 H POC Glucose Lactic Acid Calcium 7.1 L Phosphorus Magnesium Total Bilirubin AST C-Reactive Protein 19.80 H Albumin Urine Creatinine Ur Creatinine 24 Hour Crossmatch 03/04/18 03/04/18 03/04/18 05:38 11:47 17:53 WBC RBC Hgb Hct MCV MCHC RDW Lymph % (Auto) Lymph # Seg Neutrophils % Seg Neuts % (Manual) Lymphocytes % (Manual) Monocytes % (Manual) Nucleated RBC % Seg Neutrophils # Seg Neutrophils # Man Lymphocytes # (Manual) Monocytes # (Manual) PT INR POC ABG pH POC ABG pCO2 POC ABG pO2 Sodium Potassium Chloride Carbon Dioxide BUN Creatinine Glucose POC Glucose 134 H 109 H 113 H Lactic Acid Calcium Phosphorus Magnesium Total Bilirubin AST C-Reactive Protein Albumin Urine Creatinine Ur Creatinine 24 Hour Crossmatch 03/05/18 03/05/18 03/05/18 00:22 05:15 05:15 WBC 24.3 H RBC 2.29 L Hgb 6.8 L Hct 20.3 L MCV MCHC RDW 16.7 H Lymph % (Auto) Lymph # Seg Neutrophils % Seg Neuts % (Manual) 88.0 H Lymphocytes % (Manual) 3.0 L Monocytes % (Manual) Nucleated RBC % Seg Neutrophils # Seg Neutrophils # Man 21.4 H Lymphocytes # (Manual) 0.7 L Monocytes # (Manual) PT INR POC ABG pH POC ABG pCO2 POC ABG pO2 Sodium 132 L Potassium Chloride 91.2 L Carbon Dioxide BUN 69 H Creatinine 3.3 H Glucose POC Glucose 113 H Lactic Acid Calcium 6.9 L Phosphorus Magnesium Total Bilirubin AST C-Reactive Protein Albumin Urine Creatinine Ur Creatinine 24 Hour Crossmatch 03/05/18 03/05/18 03/05/18 05:36 11:51 16:00 WBC RBC Hgb Hct MCV MCHC RDW Lymph % (Auto) Lymph # Seg Neutrophils % Seg Neuts % (Manual) Lymphocytes % (Manual) Monocytes % (Manual) Nucleated RBC % Seg Neutrophils # Seg Neutrophils # Man Lymphocytes # (Manual) Monocytes # (Manual) PT INR POC ABG pH 7.519 H POC ABG pCO2 27.0 L POC ABG pO2 68 L Sodium Potassium Chloride Carbon Dioxide BUN Creatinine Glucose POC Glucose 118 H 131 H Lactic Acid Calcium Phosphorus Magnesium Total Bilirubin AST C-Reactive Protein Albumin Urine Creatinine Ur Creatinine 24 Hour Crossmatch 03/06/18 03/06/18 03/06/18 00:00 01:27 04:44 WBC 24.5 H RBC 2.90 L Hgb 8.5 L Hct 25.8 L MCV MCHC RDW 16.3 H Lymph % (Auto) Lymph # Seg Neutrophils % Seg Neuts % (Manual) 96.0 H Lymphocytes % (Manual) 1.5 L Monocytes % (Manual) Nucleated RBC % 1.0 H Seg Neutrophils # Seg Neutrophils # Man 23.5 H Lymphocytes # (Manual) 0.4 L Monocytes # (Manual) PT INR POC ABG pH POC ABG pCO2 POC ABG pO2 Sodium Potassium Chloride 92.9 L Carbon Dioxide BUN 67 H Creatinine 3.4 H Glucose POC Glucose 127 H Lactic Acid Calcium 7.2 L Phosphorus Magnesium Total Bilirubin AST C-Reactive Protein Albumin Urine Creatinine Ur Creatinine 24 Hour Crossmatch 03/06/18 03/06/18 03/06/18 04:54 05:54 12:08 WBC RBC Hgb Hct MCV MCHC RDW Lymph % (Auto) Lymph # Seg Neutrophils % Seg Neuts % (Manual) Lymphocytes % (Manual) Monocytes % (Manual) Nucleated RBC % Seg Neutrophils # Seg Neutrophils # Man Lymphocytes # (Manual) Monocytes # (Manual) PT INR POC ABG pH 7.551 H POC ABG pCO2 29.5 L POC ABG pO2 57 L Sodium Potassium Chloride Carbon Dioxide BUN Creatinine Glucose POC Glucose 108 H 123 H Lactic Acid Calcium Phosphorus Magnesium Total Bilirubin AST C-Reactive Protein Albumin Urine Creatinine Ur Creatinine 24 Hour Crossmatch 03/06/18 03/07/18 03/07/18 21:16 05:00 05:00 WBC 17.5 H RBC 2.41 L Hgb 7.3 L Hct 21.5 L MCV MCHC RDW 16.6 H Lymph % (Auto) Lymph # Seg Neutrophils % Seg Neuts % (Manual) 97.0 H Lymphocytes % (Manual) 1.0 L Monocytes % (Manual) Nucleated RBC % Seg Neutrophils # Seg Neutrophils # Man 17.0 H Lymphocytes # (Manual) 0.2 L Monocytes # (Manual) PT INR POC ABG pH 7.639 H POC ABG pCO2 25.3 L POC ABG pO2 Sodium Potassium Chloride 90.6 L Carbon Dioxide BUN 65 H Creatinine 3.4 H Glucose POC Glucose Lactic Acid Calcium 7.3 L Phosphorus Magnesium Total Bilirubin AST C-Reactive Protein Albumin Urine Creatinine Ur Creatinine 24 Hour Crossmatch 03/07/18 03/08/18 03/08/18 06:32 04:30 11:54 WBC 13.9 H RBC 2.36 L Hgb 7.1 L Hct 21.2 L MCV MCHC RDW 16.5 H Lymph % (Auto) Lymph # Seg Neutrophils % Seg Neuts % (Manual) 91.0 H Lymphocytes % (Manual) 2.0 L Monocytes % (Manual) Nucleated RBC % Seg Neutrophils # Seg Neutrophils # Man 12.6 H Lymphocytes # (Manual) 0.3 L Monocytes # (Manual) PT INR POC ABG pH 7.498 H POC ABG pCO2 30.2 L POC ABG pO2 44 L Sodium Potassium Chloride Carbon Dioxide BUN Creatinine Glucose POC Glucose 121 H Lactic Acid Calcium Phosphorus Magnesium Total Bilirubin AST C-Reactive Protein Albumin Urine Creatinine Ur Creatinine 24 Hour Crossmatch 03/08/18 03/08/18 03/09/18 18:29 23:52 05:45 WBC 12.9 H RBC 2.31 L Hgb 6.9 L Hct 20.9 L MCV MCHC RDW 16.7 H Lymph % (Auto) 5.5 L Lymph # 0.7 L Seg Neutrophils % 89.2 H Seg Neuts % (Manual) Lymphocytes % (Manual) Monocytes % (Manual) Nucleated RBC % Seg Neutrophils # 11.5 H Seg Neutrophils # Man Lymphocytes # (Manual) Monocytes # (Manual) PT INR POC ABG pH POC ABG pCO2 POC ABG pO2 Sodium Potassium Chloride Carbon Dioxide BUN Creatinine Glucose POC Glucose 106 H 115 H Lactic Acid Calcium Phosphorus Magnesium Total Bilirubin AST C-Reactive Protein Albumin Urine Creatinine Ur Creatinine 24 Hour Crossmatch 03/09/18 03/09/18 03/09/18 06:13 12:00 12:20 WBC RBC Hgb Hct MCV MCHC RDW Lymph % (Auto) Lymph # Seg Neutrophils % Seg Neuts % (Manual) Lymphocytes % (Manual) Monocytes % (Manual) Nucleated RBC % Seg Neutrophils # Seg Neutrophils # Man Lymphocytes # (Manual) Monocytes # (Manual) PT INR POC ABG pH POC ABG pCO2 POC ABG pO2 Sodium Potassium 3.3 L Chloride 82.2 L Carbon Dioxide 19 L D BUN 62 H Creatinine 3.0 H Glucose POC Glucose 122 H 113 H Lactic Acid Calcium 6.1 L D Phosphorus Magnesium Total Bilirubin AST C-Reactive Protein Albumin Urine Creatinine Ur Creatinine 24 Hour Crossmatch 03/09/18 03/09/18 03/10/18 13:30 17:38 06:55 WBC RBC 1.94 L Hgb 6.0 L Hct 17.8 L* MCV MCHC RDW 16.6 H Lymph % (Auto) 4.6 L Lymph # 0.5 L Seg Neutrophils % 90.0 H Seg Neuts % (Manual) Lymphocytes % (Manual) Monocytes % (Manual) Nucleated RBC % Seg Neutrophils # 9.1 H Seg Neutrophils # Man Lymphocytes # (Manual) Monocytes # (Manual) PT INR POC ABG pH POC ABG pCO2 POC ABG pO2 Sodium Potassium Chloride Carbon Dioxide BUN Creatinine Glucose POC Glucose Lactic Acid Calcium Phosphorus Magnesium Total Bilirubin AST C-Reactive Protein Albumin Urine Creatinine 69.2 H 69.2 H Ur Creatinine 24 Hour 0.3 L Crossmatch 03/10/18 03/10/18 03/10/18 06:55 09:00 12:14 WBC RBC Hgb Hct MCV MCHC RDW Lymph % (Auto) Lymph # Seg Neutrophils % Seg Neuts % (Manual) Lymphocytes % (Manual) Monocytes % (Manual) Nucleated RBC % Seg Neutrophils # Seg Neutrophils # Man Lymphocytes # (Manual) Monocytes # (Manual) PT INR POC ABG pH POC ABG pCO2 POC ABG pO2 Sodium 135 L Potassium Chloride 90.2 L Carbon Dioxide BUN 82 H Creatinine 3.9 H Glucose POC Glucose 107 H Lactic Acid Calcium 7.6 L D Phosphorus Magnesium Total Bilirubin AST C-Reactive Protein Albumin Urine Creatinine Ur Creatinine 24 Hour Crossmatch See Detail 03/10/18 03/10/18 18:14 20:02 WBC RBC Hgb 7.7 L Hct 23.3 L MCV MCHC RDW Lymph % (Auto) Lymph # Seg Neutrophils % Seg Neuts % (Manual) Lymphocytes % (Manual) Monocytes % (Manual) Nucleated RBC % Seg Neutrophils # Seg Neutrophils # Man Lymphocytes # (Manual) Monocytes # (Manual) PT INR POC ABG pH POC ABG pCO2 POC ABG pO2 Sodium Potassium Chloride Carbon Dioxide BUN Creatinine Glucose POC Glucose 126 H Lactic Acid Calcium Phosphorus Magnesium Total Bilirubin AST C-Reactive Protein Albumin Urine Creatinine Ur Creatinine 24 Hour Crossmatch Chest x-ray: image reviewed Allied health notes reviewed: nursing
--- NOTE | 2018-03-11 11:17 | Progress Note ---
Subjective Principal diagnosis: Acute Hypoxemic Resp Failure; Severe Sepsis; Aspiration Pneumonai (HCAP) Interval history: Patient was seen today for follow-up on multiple renal related issues Events of this hospitalization noted,started renal replacement due to worsening renal function patient has been currently oliguric currently on ventilator, Vitals labs intake output medications were reviewed Social history: Reviewed Allergies: Reviewed Family history: Reviewed Physical examination HEENT: Oral mucosa moist no pallor or icterus Neck: Supple no JVD Chest: Clear to auscultation anteriorly CVS: Regular rate and rhythm S1 and S2 heard Abdomen: Soft nontender no suprapubic masses no organomegaly appreciable Extremity: Dry skin less than 1+ peripheral edema Musculoskeletal: No joint effusion noted in knees and ankle Neurological: Alert awake Dermatology: No petechial rashes Psychiatry: No evidence of any agitation and aggression noted Assessment and plan Nonoliguric acute kidney injury baseline creatinine between 1.6-1.8 due to worsening renal failure patient has been planned to be placed on hemodialysis, no emergent indication for dialysis today Will likely require dialysis tomorrow Events of this hospitalization noted Mild hyponatremia to follow Hypokalemia currently better Creatinine clearance was around 7 mL/m on 03/09/2018 We'll continue to monitor for any meaningful recovery of renal function here Respiratory failure, sepsis, HCAP, CVA, cardiac arrest on March 03\ New stroke noted in MCA territory Admitted with severe sepsis, multilobar pneumonia due to MRSA and GAS, CT scan of the chest showed evidence of bilateral lower lobe consolidation no abscesses Overall long-term prognosis appears to be poor given the multiple comorbidities Continue with supportive care for now Patient will need daily labs White cell count is improving 10.2 thousand on 03/10 We'll continue to follow and make recommendation from renal standpoint Objective - Vital Signs Vital signs: Vital Signs - 12hr 03/10/18 03/10/18 03/10/18 23:30 23:31 23:37 Temperature 99 F Pulse Rate 103 H 108 H Pulse Rate [ Anterior Bilateral Throughout] Pulse Rate [ From Monitor] Respiratory 12 Rate Respiratory Rate [Anterior Bilateral Throughout] Blood Pressure 106/62 O2 Sat by Pulse 97 Oximetry 03/10/18 03/10/18 03/10/18 23:45 23:47 23:56 Temperature Pulse Rate 105 H 105 H Pulse Rate [ Anterior Bilateral Throughout] Pulse Rate [ 100 H From Monitor] Respiratory 12 12 12 Rate Respiratory Rate [Anterior Bilateral Throughout] Blood Pressure 106/62 106/62 O2 Sat by Pulse 96 96 93 Oximetry 03/11/18 03/11/18 03/11/18 00:00 01:00 02:00 Temperature Pulse Rate 105 H 104 H 106 H Pulse Rate [ Anterior Bilateral Throughout] Pulse Rate [ From Monitor] Respiratory 13 16 14 Rate Respiratory Rate [Anterior Bilateral Throughout] Blood Pressure 105/59 105/59 103/58 O2 Sat by Pulse 96 96 94 Oximetry 03/11/18 03/11/18 03/11/18 03:00 03:17 04:00 Temperature 98.1 F Pulse Rate 105 H 106 H 105 H Pulse Rate [ Anterior Bilateral Throughout] Pulse Rate [ From Monitor] Respiratory 14 18 Rate Respiratory Rate [Anterior Bilateral Throughout] Blood Pressure 104/55 104/55 109/63 O2 Sat by Pulse 93 94 92 Oximetry 03/11/18 03/11/18 03/11/18 04:36 05:00 06:01 Temperature Pulse Rate 105 H 121 H Pulse Rate [ Anterior Bilateral Throughout] Pulse Rate [ 102 H From Monitor] Respiratory 14 15 24 Rate Respiratory Rate [Anterior Bilateral Throughout] Blood Pressure 100/57 140/83 O2 Sat by Pulse 94 92 89 Oximetry 03/11/18 03/11/18 03/11/18 07:59 08:00 09:30 Temperature 98.4 F Pulse Rate 109 H Pulse Rate [ 113 H Anterior Bilateral Throughout] Pulse Rate [ From Monitor] Respiratory Rate Respiratory 28 H Rate [Anterior Bilateral Throughout] Blood Pressure 96/55 O2 Sat by Pulse 92 Oximetry 03/11/18 09:47 Temperature Pulse Rate Pulse Rate [ 115 H Anterior Bilateral Throughout] Pulse Rate [ From Monitor] Respiratory Rate Respiratory 26 H Rate [Anterior Bilateral Throughout] Blood Pressure O2 Sat by Pulse Oximetry - Lab 03/10/18 20:02 03/11/18 14:25 Most recent lab results Calcium 7.6 mg/dL (8.4-10.2) L D 03/10/18 06:55 Phosphorus 5.10 mg/dL (2.5-4.5) H 03/03/18 04:30 Magnesium 1.40 mg/dL (1.7-2.3) L 03/03/18 12:37 Urine Creatinine 69.2 mg/dL (0.1-20.0) H 03/09/18 17:38 Urine Sodium 67 mmol/L 02/26/18 13:08
--- NOTE | 2018-03-11 12:23 | Event Note ---
Date: 03/11/18 Discussed with patient's son ABBEY Swanson at the bedside. All risks, benefits, and alternatives to tracheostomy discussed and questions answered. Consent obtained. I spoke with Dr. Frazier regarding tracheostomy and she in agreement to proceed. Patient is optimized. She has discussed this with the son as well. Tracheostomy: Monday 02/12
[2018-03-12] MEDS: fentaNYL DRIP Premix 2,000 MCG/100 ML BAG IV SCH ×2 (05:34→17:08)
[2018-03-12] MEDS: KEPPRA FEEDTUBE SCH ×2 (05:34→17:08)
[2018-03-12] MEDS: SODIUM CHLORIDE FLUSH SYRINGE 10 ML IV SCH ×2 (05:40→09:39)
[2018-03-12 06:21] LABS: Hematocrit 22.6 % (35.5-45.6); Hemoglobin 7.4 gm/dl (11.8-15.2); Mean Corpuscular HGB Conc 33 % (32-34); Mean Corpuscular Hemoglobin 30 pg (28-32); Mean Corpuscular Volume 93 fl (84-94); Platelet Count 141 K/mm3 (140-440); Red Blood Count 2.44 M/mm3 (3.65-5.03); Red Cell Distribution Width 16.1 % (13.2-15.2)
[2018-03-12 06:28] LABS: Calcium 7.9 mg/dL (8.4-10.2)
[2018-03-12] MEDS: HumuLIN R SUB-Q SCH ×4 (07:55→18:09)
[2018-03-12] MEDS: DUONEB *Not for PRN Use IH SCH ×3 (09:21→23:15)
[2018-03-12] MEDS: ALBURX 25% (ALBUMIN) IV SCH ×2 (09:36→22:04)
[2018-03-12] MEDS: ZYVOX PO SCH ×2 (09:37→22:03)
[2018-03-12] MEDS: BABY ASPIRIN PO SCH (09:37)
[2018-03-12] MEDS: PEPCID PO SCH (09:38)
[2018-03-12] MEDS: HEPARIN SUB-Q SCH ×2 (09:38→22:02)
--- NOTE | 2018-03-12 10:25 | Progress Note ---
Assessment and Plan 72-year-old male with history of cerebrovascular accident and hemiplegia, Alzheimer's and nonverbal from [facility] sent for altered mental state. Since yesterday and high fever and increasing shortness of breath and respiratory distress. Patient's temperature was 103.2F in the initial evaluation in the emergency room. Patient was also severely tachypneic with respiratory rate of 40. Sudden onset. No exacerbating or relieving factors. [facility] is a resident of [facility]. 03/03: Went into cardiopulmonary arrest. Resuscitated according to ACLS protocol and commenced on IV Levophed for hypotension 03/05: Pt had recurrent seizure over the night and CT head showed right MCA acute /subacute stroke and calcified meningioma in the left frontal area 03/12: commence on renal replacemtn therapy 03/11 Septic Shock * started on Zyvox started * Blood Cx negative Tracheal aspirate positive for MRSA * continue isolation per ID * on pressors Cardiopulmonary arrest * Resuscitated according to ACLS protocol * Continue with Levophed drip for hypotension Acute Hypoxemic Respiratory Failure * Continues on mechanical ventilation >72HRS * Pulmonary following. * Aspiration precautions * IV solumedrol taper and Nebs Aspiration Pneumonia- Multilobar * Continue abx as noted above * Cultures showing MRSA, GAS * PCN AND CLINDAMYCIN ADDED * CONTACT ISOATION Acute Encephalopathy * patient with alzhimers disease Acute/ Subacute right MCA distribution stroke * Continue with Keppra Meningioma left frontal area 2.8 x 2.2cm * calcified, old. Acute Kidney injury now requiring rnal replacemtn therapy * Likely secondary to ATN Sacral Pressure ulcer * wound care consult BPH * Continue Finasteride Hyperlipidemia * continue statin CVA PER HX-WITH LEFT SIDED HEMIPLEGIA * Complete immobility due to frailty per documentation ANEMIA * Of chronic disease. Will transfuse blood one unit DVT/GI prophy Poor prognosis The high probability of a clinically significant, sudden or life threatening deterioration of the [PULMONARY] system(s) required my full and direct attention , intervention and personal management. The aggregate critical care time was [45 ] minutes. This time is in addition to time spent performing reported procedures but includes the following: [X] Data Review and interpretation [X] Patient assessment and monitoring of vital signs [X] Documentation [X] Medication orders and management Subjective Date of service: 03/12/18 Principal diagnosis: Acute Hypoxemic Resp Failure; Severe Sepsis; Aspiration Pneumonai (HCAP) Interval history: Patent seen and examined. No overnight event reported by pt's nursing staff. No more seizure. Pt remanis intubated s/p cardiopulmonary arrest and supported by mechanical ventilation in the ICU Objective - Exam Narrative Exam: Constitutional: intubated and on mechanical ventilation. Afebrile Head: Normocephalic atraumatic Eyes: Pupils are equal round and reactive to light Nose: No enlarged turbinates, no septal deviation. Mouth: Moist mucous membranes. Neck: Supple no thyromegaly. No bruit. No JVD Heart: Regular rate and rhythm, S1-S2 abnormal. No rubs murmurs or gallop Lungs: Decreased breath sound bilaterally no rales or rhonchi Abdomen: Soft, nontender. Bowel sound are present. Extremities: No edema no cyanosis and no clubbing. Neuro: Alert oriented Oriented x3. No focal sensory or motor deficit. Skin: No rashes no hyperemic spots Psychiatry: Euthymic. Calm. - Constitutional Vitals: Vital Signs - 12hr 03/11/18 03/11/18 03/11/18 22:38 23:00 23:19 Temperature Pulse Rate 121 H 143 H 111 H Pulse Rate [ Anterior Bilateral Throughout] Pulse Rate [ From Monitor] Respiratory 26 H 14 Rate Respiratory Rate [Anterior Bilateral Throughout] Blood Pressure 110/69 110/69 111/62 O2 Sat by Pulse 94 93 92 Oximetry 03/11/18 03/11/18 03/12/18 23:21 23:33 00:00 Temperature 98.8 F Pulse Rate 105 H Pulse Rate [ 107 H 109 H Anterior Bilateral Throughout] Pulse Rate [ 107 H From Monitor] Respiratory 24 Rate Respiratory 24 22 Rate [Anterior Bilateral Throughout] Blood Pressure 100/58 O2 Sat by Pulse 93 Oximetry 03/12/18 03/12/18 03/12/18 01:00 02:00 03:00 Temperature Pulse Rate 127 H 122 H 119 H Pulse Rate [ Anterior Bilateral Throughout] Pulse Rate [ From Monitor] Respiratory 27 H 25 H 21 Rate Respiratory Rate [Anterior Bilateral Throughout] Blood Pressure 103/64 104/65 105/67 O2 Sat by Pulse 92 93 88 Oximetry 03/12/18 03/12/18 03/12/18 03:37 04:00 05:00 Temperature 99.1 F Pulse Rate 126 H 111 H 105 H Pulse Rate [ Anterior Bilateral Throughout] Pulse Rate [ 111 H From Monitor] Respiratory 18 18 Rate Respiratory Rate [Anterior Bilateral Throughout] Blood Pressure 105/67 105/67 108/64 O2 Sat by Pulse 90 93 97 Oximetry 03/12/18 03/12/18 03/12/18 06:00 07:00 08:00 Temperature 98.2 F Pulse Rate 107 H 109 H 104 H Pulse Rate [ Anterior Bilateral Throughout] Pulse Rate [ 100 H From Monitor] Respiratory 18 29 H 17 Rate Respiratory Rate [Anterior Bilateral Throughout] Blood Pressure 110/67 154/103 113/70 O2 Sat by Pulse 98 97 98 Oximetry 03/12/18 03/12/18 03/12/18 09:00 09:22 09:45 Temperature Pulse Rate 104 H 105 H Pulse Rate [ 111 H 114 H Anterior Bilateral Throughout] Pulse Rate [ From Monitor] Respiratory 16 Rate Respiratory 24 22 Rate [Anterior Bilateral Throughout] Blood Pressure 109/71 109/71 O2 Sat by Pulse 94 96 Oximetry - Labs CBC & Chem 7: 03/12/18 05:45 03/12/18 05:45 Labs: Abnormal lab results 03/11/18 03/12/18 03/12/18 Range/Units 14:25 04:19 05:45 RBC (3.65-5.03) M/mm3 Hgb (11.8-15.2) gm/dl Hct (35.5-45.6) % RDW (13.2-15.2) % POC ABG pO2 71 L (80-105) Chloride 94.6 L 95.1 L (98-107) mmol/L BUN 69 H 72 H (9-20) mg/dL Creatinine 3.7 H 4.0 H (0.8-1.5) mg/dL Calcium 8.0 L 7.9 L (8.4-10.2) mg/dL 03/12/18 Range/Units 05:45 RBC 2.44 L (3.65-5.03) M/mm3 Hgb 7.4 L (11.8-15.2) gm/dl Hct 22.6 L (35.5-45.6) % RDW 16.1 H (13.2-15.2) % POC ABG pO2 (80-105) Chloride (98-107) mmol/L BUN (9-20) mg/dL Creatinine (0.8-1.5) mg/dL Calcium (8.4-10.2) mg/dL
--- NOTE | 2018-03-12 10:59 | Progress Note ---
Subjective Principal diagnosis: Acute Hypoxemic Resp Failure; Severe Sepsis; Aspiration Pneumonai (HCAP) Interval history: Patient was seen today for follow-up on multiple renal related issues resting comfortably in bed patient has been currently oliguric currently on ventilator, Vitals labs intake output medications were reviewed Social history: Reviewed Allergies: Reviewed Family history: Reviewed Physical examination HEENT: Oral mucosa moist no pallor or icterus Neck: Supple no JVD Chest: Clear to auscultation anteriorly CVS: Regular rate and rhythm S1 and S2 heard Abdomen: Soft nontender no suprapubic masses no organomegaly appreciable Extremity: Dry skin less than 1+ peripheral edema Musculoskeletal: No joint effusion noted in knees and ankle Neurological: Alert awake Dermatology: No petechial rashes Psychiatry: No evidence of any agitation and aggression noted Assessment and plan Acute kidney injury: No emergent indication for renal replacement therapy today , blood pressure is borderline oxygen requirement satisfactory, monitor labs possibly consider for hemodialysis treatment tomorrow morning Due to worsening renal failure hemodialysis is initiated baseline creatinine between 1.6-1.8 Hyponatremia, hypokalemia to monitor and follow Creatinine clearance was less than 10 cc around March 09, 2018 Monitor for recovery of renal function Multiple comorbidities including pneumonia new stroke, cardiac arrest March 03, multilobar pneumonia overall prognosis in general appears to very poor patient still remains high risk for mortality Reevaluate for hemodialysis treatment tomorrow morning 9 emergent acute indication for hemodialysis treatment today Labs show a hemoglobin of 7.4 platelet count 141,000 potassium 4.2 creatinine [address] scan of the chest showed evidence of bilateral lower lobe consolidation no abscesses Overall long-term prognosis appears to be poor given the multiple comorbidities Continue with supportive care for now Patient will need daily labs White cell count is improving 10.2 thousand on 03/10 We'll continue to follow and make recommendation from renal standpoint Objective - Vital Signs Vital signs: Vital Signs - 12hr 03/11/18 03/11/18 03/11/18 23:00 23:19 23:21 Temperature Pulse Rate 143 H 111 H Pulse Rate [ 107 H Anterior Bilateral Throughout] Pulse Rate [ From Monitor] Respiratory 14 Rate Respiratory 24 Rate [Anterior Bilateral Throughout] Blood Pressure 110/69 111/62 O2 Sat by Pulse 93 92 Oximetry 03/11/18 03/12/18 03/12/18 23:33 00:00 01:00 Temperature 98.8 F Pulse Rate 105 H 127 H Pulse Rate [ 109 H Anterior Bilateral Throughout] Pulse Rate [ 107 H From Monitor] Respiratory 24 27 H Rate Respiratory 22 Rate [Anterior Bilateral Throughout] Blood Pressure 100/58 103/64 O2 Sat by Pulse 93 92 Oximetry 03/12/18 03/12/18 03/12/18 02:00 03:00 03:37 Temperature Pulse Rate 122 H 119 H 126 H Pulse Rate [ Anterior Bilateral Throughout] Pulse Rate [ From Monitor] Respiratory 25 H 21 Rate Respiratory Rate [Anterior Bilateral Throughout] Blood Pressure 104/65 105/67 105/67 O2 Sat by Pulse 93 88 90 Oximetry 03/12/18 03/12/18 03/12/18 04:00 05:00 06:00 Temperature 99.1 F Pulse Rate 111 H 105 H 107 H Pulse Rate [ Anterior Bilateral Throughout] Pulse Rate [ 111 H From Monitor] Respiratory 18 18 18 Rate Respiratory Rate [Anterior Bilateral Throughout] Blood Pressure 105/67 108/64 110/67 O2 Sat by Pulse 93 97 98 Oximetry 03/12/18 03/12/18 03/12/18 07:00 08:00 09:00 Temperature 98.2 F Pulse Rate 109 H 104 H 104 H Pulse Rate [ Anterior Bilateral Throughout] Pulse Rate [ 100 H From Monitor] Respiratory 29 H 17 16 Rate Respiratory Rate [Anterior Bilateral Throughout] Blood Pressure 154/103 113/70 109/71 O2 Sat by Pulse 97 98 94 Oximetry 03/12/18 03/12/18 09:22 09:45 Temperature Pulse Rate 105 H Pulse Rate [ 111 H 114 H Anterior Bilateral Throughout] Pulse Rate [ From Monitor] Respiratory Rate Respiratory 24 22 Rate [Anterior Bilateral Throughout] Blood Pressure 109/71 O2 Sat by Pulse 96 Oximetry - Lab 03/12/18 05:45 03/12/18 05:45 Most recent lab results Calcium 7.9 mg/dL (8.4-10.2) L 03/12/18 05:45 Phosphorus 5.10 mg/dL (2.5-4.5) H 03/03/18 04:30 Magnesium 1.40 mg/dL (1.7-2.3) L 03/03/18 12:37 Urine Creatinine 69.2 mg/dL (0.1-20.0) H 03/09/18 17:38 Urine Sodium 67 mmol/L 02/26/18 13:08
--- NOTE | 2018-03-12 15:09 | Ultrasound Report ---
FINAL REPORT PROCEDURE: US RENAL BILAT TECHNIQUE: Real-time sonography in multiple planes of the kidneys, ureters and urinary bladder was performed with image documentation. CPT 54547 HISTORY: Acute and chronic renal insufficiency COMPARISON: No prior studies are available for comparison. FINDINGS: The echogenicity of the renal cortex bilaterally appears diffusely increased consistent with chronic renal parenchymal disease. Hypoechoic nodules with increased through sound transmission and enhancement of the posterior wall seen in the right and left kidneys consistent with several renal cortical cysts. On the right these measure up to 2.5 centimeters, on the left up to 2.1 centimeter in diameter. No calculi are seen. No definite solid masses are identified. There is no hydronephrosis. The right kidney measures 9.7 x 5.2 x 4.2 centimeter. The left kidney 9.8 x 4.2 x 5.4 centimeter. Urinary bladder is only partially filled. Free fluid/ascites collected along the edges of the liver and in the lower pelvis. IMPRESSION: Multiple renal cortical cyst visualized. No hydronephrosis identified. Echogenicity the renal cortex bilaterally appears mildly diffusely increased consistent with chronic renal parenchymal disease. Small to moderate amount of ascites appears to be present as well..
--- NOTE | 2018-03-12 15:29 | Progress Note ---
Assessment and Plan Severe sepsis with septic shock. Aspiration pneumonia, healthcare associated. Acute on chronic encephalopathy. Acute on chronic kidney injury. Anemia. Hypernatremia. Metabolic acidosis. Lactic acidosis. History of hypertension. History of diabetes. History of Alzheimer dementia. - tolerating HD/UF well so far - s/p BOLIVAR anacath - awaiting tracheostomy - continue bronchodilators with pulmonary hygiene per RT - continue to wean FiO2 for sats > 90% - continue addressing VAP bundle daily - continue to wean levophed for MAP > 65 mmHg - strict I's & O's re: DIANNA and will leave shrestha catheter in place for now - further azotemia management per power generation engineer (input appreciated) - conservative volume management strategies at this point - continue to trend CRP and lactate prn - continue enteral nutrition as tolerated - continue mobility protocol for pressure ulcer prophylaxis - continue GI & VTE prophylaxis - continue antibiotics; on vancomycin for MRSA pneumonia and following other cultures - ID evaluation ongoing - continue contact precautions as now 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 The aggregate critical care time was [30] minutes without overlap. Time includes spent on; [x] Data Review and interpretation [x] Patient assessment and monitoring of vital signs [x] Documentation [x] Medication orders and management Subjective Date of service: 03/12/18 Principal diagnosis: Acute Hypoxemic Resp Failure; Severe Sepsis; Aspiration Pneumonai (HCAP) Interval history: Patient is seen today for: Acute Hypoxemic Resp Failure; Severe Sepsis; Aspiration Pneumonai (HCAP) Seen and examined at bedside; 24hour events reviewed; nursing and respiratory care staff consulted; no adverse overnight events reported to me; remains on MVS ; tentatively for tracheostomy on ; AMS is persistent Objective Vital Signs - 12hr 03/12/18 03/12/18 03/12/18 03:37 04:00 05:00 Temperature 99.1 F Pulse Rate 126 H 111 H 105 H Pulse Rate [ Anterior Bilateral Throughout] Pulse Rate [ 111 H From Monitor] Respiratory 18 18 Rate Respiratory Rate [Anterior Bilateral Throughout] Blood Pressure 105/67 105/67 108/64 O2 Sat by Pulse 90 93 97 Oximetry 03/12/18 03/12/18 03/12/18 06:00 07:00 08:00 Temperature 98.2 F Pulse Rate 107 H 109 H 104 H Pulse Rate [ Anterior Bilateral Throughout] Pulse Rate [ 100 H From Monitor] Respiratory 18 29 H 17 Rate Respiratory Rate [Anterior Bilateral Throughout] Blood Pressure 110/67 154/103 113/70 O2 Sat by Pulse 98 97 98 Oximetry 03/12/18 03/12/18 03/12/18 09:00 09:22 09:45 Temperature Pulse Rate 104 H 105 H Pulse Rate [ 111 H 114 H Anterior Bilateral Throughout] Pulse Rate [ From Monitor] Respiratory 16 Rate Respiratory 24 22 Rate [Anterior Bilateral Throughout] Blood Pressure 109/71 109/71 O2 Sat by Pulse 94 96 Oximetry 03/12/18 03/12/18 03/12/18 10:00 11:00 12:00 Temperature 98.7 F Pulse Rate 109 H 113 H Pulse Rate [ Anterior Bilateral Throughout] Pulse Rate [ From Monitor] Respiratory 18 15 Rate Respiratory Rate [Anterior Bilateral Throughout] Blood Pressure 99/72 89/58 O2 Sat by Pulse 96 94 Oximetry Constitutional: appears uncomfortable, other (elderly looking AAM, normocephalic and atraumativ on MVS with increased respiratory effort) Eyes: non-icteric ENT: oropharynx moist, other (ETT 24 cm TERESA) Neck: supple, no lymphadenopathy, no JVD, other (no thyromegaly) Effort: very labored Ascultation: Bilateral: diminished breath sounds, rales Percussion: Bilateral: not dull Cardiovascular: regular rate and rhythm, other (No R/M, S1,S2) Gastrointestinal: normoactive bowel sounds, soft, non-tender, non-distended, other (+ PEG; No HSM, scrotal edema) Integumentary: other (poor turgor) Extremities: no cyanosis, pulses normal, no ischemia or petechiae, anasarca Neurologic: pupils equal and round, unable to assess Psychiatric: other (unable to assess re: encephalopathy) CBC and BMP: 03/12/18 05:45 03/12/18 05:45 ABG, PT/INR, D-dimer: ABG POC ABG pH 7.391 (7.35-7.45) 03/12/18 04:19 POC ABG pCO2 41.3 (35-45) 03/12/18 04:19 POC ABG pO2 71 (80-105) L 03/12/18 04:19 POC ABG HCO3 25.1 03/12/18 04:19 POC ABG Total CO2 26 03/12/18 04:19 POC ABG O2 Sat 94 03/12/18 04:19 PT/INR, D-dimer PT 21.5 Sec. (12.2-14.9) H 02/26/18 20:50 INR 1.75 (0.87-1.13) H 02/26/18 20:50 Abnormal lab findings: Abnormal Labs 02/25/18 02/25/18 02/25/18 23:15 23:15 23:15 WBC 12.3 H RBC 3.56 L Hgb 10.2 L Hct 33.7 L MCV 95 H MCHC 30 L RDW 17.7 H Lymph % (Auto) Lymph # Seg Neutrophils % Seg Neuts % (Manual) 35.0 L Lymphocytes % (Manual) 13.0 L Monocytes % (Manual) 8.0 H Nucleated RBC % Seg Neutrophils # Seg Neutrophils # Man Lymphocytes # (Manual) Monocytes # (Manual) 1.0 H PT 20.3 H INR 1.63 H POC ABG pH POC ABG pCO2 POC ABG pO2 Sodium 152 H Potassium Chloride 108.7 H Carbon Dioxide 18 L BUN 136 H Creatinine 5.2 H Glucose POC Glucose Lactic Acid Calcium 8.0 L Phosphorus Magnesium Total Bilirubin 4.50 H AST 83 H C-Reactive Protein Albumin 2.7 L Urine Creatinine Ur Creatinine 24 Hour Crossmatch 02/25/18 02/25/18 02/26/18 23:15 23:30 03:06 WBC RBC Hgb Hct MCV MCHC RDW Lymph % (Auto) Lymph # Seg Neutrophils % Seg Neuts % (Manual) Lymphocytes % (Manual) Monocytes % (Manual) Nucleated RBC % Seg Neutrophils # Seg Neutrophils # Man Lymphocytes # (Manual) Monocytes # (Manual) PT INR POC ABG pH POC ABG pCO2 25.2 L POC ABG pO2 69 L Sodium Potassium Chloride Carbon Dioxide BUN Creatinine Glucose POC Glucose Lactic Acid 7.00 H* 9.70 H* Calcium Phosphorus Magnesium Total Bilirubin AST C-Reactive Protein Albumin Urine Creatinine Ur Creatinine 24 Hour Crossmatch 02/26/18 02/26/18 02/26/18 05:12 05:43 07:39 WBC 23.7 H RBC 3.27 L Hgb 9.3 L Hct 31.1 L MCV 95 H MCHC 30 L RDW 17.4 H Lymph % (Auto) Lymph # Seg Neutrophils % Seg Neuts % (Manual) Lymphocytes % (Manual) 2.0 L Monocytes % (Manual) Nucleated RBC % 1.0 H Seg Neutrophils # Seg Neutrophils # Man 16.1 H Lymphocytes # (Manual) 0.5 L Monocytes # (Manual) 1.2 H PT INR POC ABG pH POC ABG pCO2 19.5 L POC ABG pO2 72 L Sodium Potassium Chloride Carbon Dioxide BUN Creatinine Glucose POC Glucose Lactic Acid 8.80 H* Calcium Phosphorus Magnesium Total Bilirubin AST C-Reactive Protein Albumin Urine Creatinine Ur Creatinine 24 Hour Crossmatch 02/26/18 02/26/18 02/26/18 07:39 12:06 13:08 WBC RBC Hgb Hct MCV MCHC RDW Lymph % (Auto) Lymph # Seg Neutrophils % Seg Neuts % (Manual) Lymphocytes % (Manual) Monocytes % (Manual) Nucleated RBC % Seg Neutrophils # Seg Neutrophils # Man Lymphocytes # (Manual) Monocytes # (Manual) PT INR POC ABG pH POC ABG pCO2 27.8 L POC ABG pO2 168 H Sodium 155 H Potassium Chloride 114.2 H Carbon Dioxide 14 L BUN 120 H Creatinine 4.6 H Glucose 108 H POC Glucose Lactic Acid Calcium 7.7 L Phosphorus Magnesium Total Bilirubin 4.50 H AST 105 H C-Reactive Protein Albumin 2.4 L Urine Creatinine 38.6 H Ur Creatinine 24 Hour Crossmatch 02/26/18 02/26/18 02/26/18 18:41 20:50 20:50 WBC RBC Hgb Hct MCV MCHC RDW Lymph % (Auto) Lymph # Seg Neutrophils % Seg Neuts % (Manual) Lymphocytes % (Manual) Monocytes % (Manual) Nucleated RBC % Seg Neutrophils # Seg Neutrophils # Man Lymphocytes # (Manual) Monocytes # (Manual) PT 21.5 H INR 1.75 H POC ABG pH POC ABG pCO2 POC ABG pO2 Sodium Potassium Chloride Carbon Dioxide BUN Creatinine Glucose POC Glucose 135 H Lactic Acid Calcium Phosphorus Magnesium Total Bilirubin AST C-Reactive Protein 33.90 H Albumin Urine Creatinine Ur Creatinine 24 Hour Crossmatch 02/27/18 02/27/18 02/27/18 03:39 04:56 04:56 WBC 20.1 H RBC 2.92 L Hgb 8.4 L Hct 27.5 L MCV MCHC 31 L RDW 17.1 H Lymph % (Auto) Lymph # Seg Neutrophils % Seg Neuts % (Manual) 92.0 H Lymphocytes % (Manual) 3.0 L Monocytes % (Manual) Nucleated RBC % Seg Neutrophils # Seg Neutrophils # Man 18.5 H Lymphocytes # (Manual) 0.6 L Monocytes # (Manual) PT INR POC ABG pH 7.453 H POC ABG pCO2 27.2 L POC ABG pO2 Sodium 149 H Potassium Chloride 113.1 H Carbon Dioxide 18 L BUN 103 H Creatinine 3.8 H Glucose 120 H POC Glucose Lactic Acid Calcium 7.8 L Phosphorus Magnesium Total Bilirubin AST C-Reactive Protein Albumin Urine Creatinine Ur Creatinine 24 Hour Crossmatch 02/27/18 02/27/18 02/27/18 12:37 12:45 17:51 WBC RBC Hgb Hct MCV MCHC RDW Lymph % (Auto) Lymph # Seg Neutrophils % Seg Neuts % (Manual) Lymphocytes % (Manual) Monocytes % (Manual) Nucleated RBC % Seg Neutrophils # Seg Neutrophils # Man Lymphocytes # (Manual) Monocytes # (Manual) PT INR POC ABG pH POC ABG pCO2 POC ABG pO2 Sodium Potassium Chloride Carbon Dioxide BUN Creatinine Glucose POC Glucose 169 H 133 H Lactic Acid 2.90 H* Calcium Phosphorus Magnesium Total Bilirubin AST C-Reactive Protein Albumin Urine Creatinine Ur Creatinine 24 Hour Crossmatch 02/28/18 02/28/18 02/28/18 00:23 05:00 05:02 WBC RBC Hgb Hct MCV MCHC RDW Lymph % (Auto) Lymph # Seg Neutrophils % Seg Neuts % (Manual) Lymphocytes % (Manual) Monocytes % (Manual) Nucleated RBC % Seg Neutrophils # Seg Neutrophils # Man Lymphocytes # (Manual) Monocytes # (Manual) PT INR POC ABG pH POC ABG pCO2 POC ABG pO2 Sodium Potassium Chloride Carbon Dioxide BUN Creatinine Glucose POC Glucose 161 H 116 H Lactic Acid 2.70 H* Calcium Phosphorus Magnesium Total Bilirubin AST C-Reactive Protein Albumin Urine Creatinine Ur Creatinine 24 Hour Crossmatch 02/28/18 02/28/18 02/28/18 05:28 07:04 09:00 WBC 22.3 H RBC 2.63 L Hgb 7.6 L Hct 24.1 L MCV MCHC 31 L RDW 17.4 H Lymph % (Auto) Lymph # Seg Neutrophils % Seg Neuts % (Manual) 84.0 H Lymphocytes % (Manual) 8.0 L Monocytes % (Manual) Nucleated RBC % Seg Neutrophils # Seg Neutrophils # Man 18.7 H Lymphocytes # (Manual) Monocytes # (Manual) 1.1 H PT INR POC ABG pH 7.477 H POC ABG pCO2 24.6 L POC ABG pO2 57 L Sodium Potassium Chloride Carbon Dioxide BUN Creatinine Glucose POC Glucose Lactic Acid 3.10 H* Calcium Phosphorus Magnesium Total Bilirubin AST C-Reactive Protein Albumin Urine Creatinine Ur Creatinine 24 Hour Crossmatch 02/28/18 02/28/18 02/28/18 09:00 11:36 17:10 WBC RBC Hgb Hct MCV MCHC RDW Lymph % (Auto) Lymph # Seg Neutrophils % Seg Neuts % (Manual) Lymphocytes % (Manual) Monocytes % (Manual) Nucleated RBC % Seg Neutrophils # Seg Neutrophils # Man Lymphocytes # (Manual) Monocytes # (Manual) PT INR POC ABG pH POC ABG pCO2 POC ABG pO2 Sodium Potassium 3.3 L 3.5 L Chloride Carbon Dioxide 21 L 19 L BUN 76 H 69 H Creatinine 2.8 H 2.5 H Glucose 104 H 124 H POC Glucose 107 H Lactic Acid Calcium 7.6 L 7.3 L Phosphorus 1.50 L Magnesium Total Bilirubin AST C-Reactive Protein Albumin Urine Creatinine Ur Creatinine 24 Hour Crossmatch 02/28/18 02/28/18 03/01/18 17:36 23:40 06:25 WBC RBC Hgb Hct MCV MCHC RDW Lymph % (Auto) Lymph # Seg Neutrophils % Seg Neuts % (Manual) Lymphocytes % (Manual) Monocytes % (Manual) Nucleated RBC % Seg Neutrophils # Seg Neutrophils # Man Lymphocytes # (Manual) Monocytes # (Manual) PT INR POC ABG pH 7.542 H POC ABG pCO2 23.3 L POC ABG pO2 62 L Sodium Potassium Chloride Carbon Dioxide BUN Creatinine Glucose POC Glucose 151 H 111 H Lactic Acid Calcium Phosphorus Magnesium Total Bilirubin AST C-Reactive Protein Albumin Urine Creatinine Ur Creatinine 24 Hour Crossmatch 03/01/18 03/01/18 03/02/18 10:00 12:12 05:21 WBC RBC Hgb Hct MCV MCHC RDW Lymph % (Auto) Lymph # Seg Neutrophils % Seg Neuts % (Manual) Lymphocytes % (Manual) Monocytes % (Manual) Nucleated RBC % Seg Neutrophils # Seg Neutrophils # Man Lymphocytes # (Manual) Monocytes # (Manual) PT INR POC ABG pH 7.473 H POC ABG pCO2 21.5 L POC ABG pO2 79 L Sodium Potassium 3.5 L Chloride Carbon Dioxide 18 L BUN 66 H Creatinine 2.8 H Glucose 103 H POC Glucose 176 H Lactic Acid Calcium 7.5 L Phosphorus Magnesium Total Bilirubin AST C-Reactive Protein Albumin Urine Creatinine Ur Creatinine 24 Hour Crossmatch 03/02/18 03/02/18 03/02/18 06:00 06:00 11:47 WBC 18.2 H RBC 2.43 L Hgb 7.2 L Hct 22.6 L MCV MCHC RDW 17.6 H Lymph % (Auto) Lymph # Seg Neutrophils % Seg Neuts % (Manual) Lymphocytes % (Manual) Monocytes % (Manual) Nucleated RBC % Seg Neutrophils # Seg Neutrophils # Man Lymphocytes # (Manual) Monocytes # (Manual) PT INR POC ABG pH POC ABG pCO2 POC ABG pO2 Sodium Potassium Chloride Carbon Dioxide 17 L BUN 68 H Creatinine 3.1 H Glucose 106 H POC Glucose 136 H Lactic Acid Calcium 7.2 L Phosphorus Magnesium Total Bilirubin AST C-Reactive Protein Albumin Urine Creatinine Ur Creatinine 24 Hour Crossmatch 03/02/18 03/03/18 03/03/18 17:35 00:54 03:38 WBC RBC Hgb Hct MCV MCHC RDW Lymph % (Auto) Lymph # Seg Neutrophils % Seg Neuts % (Manual) Lymphocytes % (Manual) Monocytes % (Manual) Nucleated RBC % Seg Neutrophils # Seg Neutrophils # Man Lymphocytes # (Manual) Monocytes # (Manual) PT INR POC ABG pH 7.451 H POC ABG pCO2 20.5 L POC ABG pO2 Sodium Potassium Chloride Carbon Dioxide BUN Creatinine Glucose POC Glucose 109 H 131 H Lactic Acid Calcium Phosphorus Magnesium Total Bilirubin AST C-Reactive Protein Albumin Urine Creatinine Ur Creatinine 24 Hour Crossmatch 03/03/18 03/03/18 03/03/18 04:30 06:15 06:15 WBC 21.1 H RBC 2.20 L Hgb 6.3 L Hct 20.8 L MCV 95 H MCHC 30 L RDW 17.8 H Lymph % (Auto) Lymph # Seg Neutrophils % Seg Neuts % (Manual) 71.0 H Lymphocytes % (Manual) 8.0 L Monocytes % (Manual) Nucleated RBC % Seg Neutrophils # Seg Neutrophils # Man 15.0 H Lymphocytes # (Manual) Monocytes # (Manual) 1.3 H PT INR POC ABG pH POC ABG pCO2 POC ABG pO2 Sodium 130 L D Potassium Chloride 96.4 L Carbon Dioxide 14 L BUN 69 H Creatinine 3.1 H Glucose POC Glucose Lactic Acid Calcium 7.0 L Phosphorus 5.10 H Magnesium Total Bilirubin AST C-Reactive Protein Albumin Urine Creatinine Ur Creatinine 24 Hour Crossmatch 03/03/18 03/03/18 03/03/18 08:37 09:38 12:13 WBC RBC Hgb Hct MCV MCHC RDW Lymph % (Auto) Lymph # Seg Neutrophils % Seg Neuts % (Manual) Lymphocytes % (Manual) Monocytes % (Manual) Nucleated RBC % Seg Neutrophils # Seg Neutrophils # Man Lymphocytes # (Manual) Monocytes # (Manual) PT INR POC ABG pH POC ABG pCO2 23.8 L POC ABG pO2 156 H Sodium Potassium Chloride Carbon Dioxide BUN Creatinine Glucose POC Glucose 119 H Lactic Acid Calcium Phosphorus Magnesium Total Bilirubin AST C-Reactive Protein Albumin Urine Creatinine Ur Creatinine 24 Hour Crossmatch See Detail 03/03/18 03/03/18 03/04/18 12:37 18:05 00:59 WBC RBC Hgb Hct MCV MCHC RDW Lymph % (Auto) Lymph # Seg Neutrophils % Seg Neuts % (Manual) Lymphocytes % (Manual) Monocytes % (Manual) Nucleated RBC % Seg Neutrophils # Seg Neutrophils # Man Lymphocytes # (Manual) Monocytes # (Manual) PT INR POC ABG pH POC ABG pCO2 POC ABG pO2 Sodium Potassium Chloride Carbon Dioxide BUN Creatinine Glucose POC Glucose 154 H 159 H Lactic Acid Calcium Phosphorus Magnesium 1.40 L Total Bilirubin AST C-Reactive Protein Albumin Urine Creatinine Ur Creatinine 24 Hour Crossmatch 03/04/18 03/04/18 03/04/18 04:27 05:30 05:30 WBC 22.6 H RBC 2.46 L Hgb 7.1 L Hct 21.7 L MCV MCHC RDW 17.2 H Lymph % (Auto) Lymph # Seg Neutrophils % Seg Neuts % (Manual) 84.0 H Lymphocytes % (Manual) 5.0 L Monocytes % (Manual) Nucleated RBC % Seg Neutrophils # Seg Neutrophils # Man 19.0 H Lymphocytes # (Manual) 1.1 L Monocytes # (Manual) PT INR POC ABG pH 7.486 H POC ABG pCO2 24.8 L POC ABG pO2 Sodium 135 L Potassium Chloride 96.2 L Carbon Dioxide 19 L BUN 69 H Creatinine 3.1 H Glucose 121 H POC Glucose Lactic Acid Calcium 7.1 L Phosphorus Magnesium Total Bilirubin AST C-Reactive Protein 19.80 H Albumin Urine Creatinine Ur Creatinine 24 Hour Crossmatch 03/04/18 03/04/18 03/04/18 05:38 11:47 17:53 WBC RBC Hgb Hct MCV MCHC RDW Lymph % (Auto) Lymph # Seg Neutrophils % Seg Neuts % (Manual) Lymphocytes % (Manual) Monocytes % (Manual) Nucleated RBC % Seg Neutrophils # Seg Neutrophils # Man Lymphocytes # (Manual) Monocytes # (Manual) PT INR POC ABG pH POC ABG pCO2 POC ABG pO2 Sodium Potassium Chloride Carbon Dioxide BUN Creatinine Glucose POC Glucose 134 H 109 H 113 H Lactic Acid Calcium Phosphorus Magnesium Total Bilirubin AST C-Reactive Protein Albumin Urine Creatinine Ur Creatinine 24 Hour Crossmatch 03/05/18 03/05/18 03/05/18 00:22 05:15 05:15 WBC 24.3 H RBC 2.29 L Hgb 6.8 L Hct 20.3 L MCV MCHC RDW 16.7 H Lymph % (Auto) Lymph # Seg Neutrophils % Seg Neuts % (Manual) 88.0 H Lymphocytes % (Manual) 3.0 L Monocytes % (Manual) Nucleated RBC % Seg Neutrophils # Seg Neutrophils # Man 21.4 H Lymphocytes # (Manual) 0.7 L Monocytes # (Manual) PT INR POC ABG pH POC ABG pCO2 POC ABG pO2 Sodium 132 L Potassium Chloride 91.2 L Carbon Dioxide BUN 69 H Creatinine 3.3 H Glucose POC Glucose 113 H Lactic Acid Calcium 6.9 L Phosphorus Magnesium Total Bilirubin AST C-Reactive Protein Albumin Urine Creatinine Ur Creatinine 24 Hour Crossmatch 03/05/18 03/05/18 03/05/18 05:36 11:51 16:00 WBC RBC Hgb Hct MCV MCHC RDW Lymph % (Auto) Lymph # Seg Neutrophils % Seg Neuts % (Manual) Lymphocytes % (Manual) Monocytes % (Manual) Nucleated RBC % Seg Neutrophils # Seg Neutrophils # Man Lymphocytes # (Manual) Monocytes # (Manual) PT INR POC ABG pH 7.519 H POC ABG pCO2 27.0 L POC ABG pO2 68 L Sodium Potassium Chloride Carbon Dioxide BUN Creatinine Glucose POC Glucose 118 H 131 H Lactic Acid Calcium Phosphorus Magnesium Total Bilirubin AST C-Reactive Protein Albumin Urine Creatinine Ur Creatinine 24 Hour Crossmatch 03/06/18 03/06/1803/06/18 00:00 01:27 04:44 WBC 24.5 H RBC 2.90 L Hgb 8.5 L Hct 25.8 L MCV MCHC RDW 16.3 H Lymph % (Auto) Lymph # Seg Neutrophils % Seg Neuts % (Manual) 96.0 H Lymphocytes % (Manual) 1.5 L Monocytes % (Manual) Nucleated RBC % 1.0 H Seg Neutrophils # Seg Neutrophils # Man 23.5 H Lymphocytes # (Manual) 0.4 L Monocytes # (Manual) PT INR POC ABG pH POC ABG pCO2 POC ABG pO2 Sodium Potassium Chloride 92.9 L Carbon Dioxide BUN 67 H Creatinine 3.4 H Glucose POC Glucose 127 H Lactic Acid Calcium 7.2 L Phosphorus Magnesium Total Bilirubin AST C-Reactive Protein Albumin Urine Creatinine Ur Creatinine 24 Hour Crossmatch 03/06/18 03/06/18 03/06/18 04:54 05:54 12:08 WBC RBC Hgb Hct MCV MCHC RDW Lymph % (Auto) Lymph # Seg Neutrophils % Seg Neuts % (Manual) Lymphocytes % (Manual) Monocytes % (Manual) Nucleated RBC % Seg Neutrophils # Seg Neutrophils # Man Lymphocytes # (Manual) Monocytes # (Manual) PT INR POC ABG pH 7.551 H POC ABG pCO2 29.5 L POC ABG pO2 57 L Sodium Potassium Chloride Carbon Dioxide BUN Creatinine Glucose POC Glucose 108 H 123 H Lactic Acid Calcium Phosphorus Magnesium Total Bilirubin AST C-Reactive Protein Albumin Urine Creatinine Ur Creatinine 24 Hour Crossmatch 03/06/18 03/07/18 03/07/18 21:16 05:00 05:00 WBC 17.5 H RBC 2.41 L Hgb 7.3 L Hct 21.5 L MCV MCHC RDW 16.6 H Lymph % (Auto) Lymph # Seg Neutrophils % Seg Neuts % (Manual) 97.0 H Lymphocytes % (Manual) 1.0 L Monocytes % (Manual) Nucleated RBC % Seg Neutrophils # Seg Neutrophils # Man 17.0 H Lymphocytes # (Manual) 0.2 L Monocytes # (Manual) PT INR POC ABG pH 7.639 H POC ABG pCO2 25.3 L POC ABG pO2 Sodium Potassium Chloride 90.6 L Carbon Dioxide BUN 65 H Creatinine 3.4 H Glucose POC Glucose Lactic Acid Calcium 7.3 L Phosphorus Magnesium Total Bilirubin AST C-Reactive Protein Albumin Urine Creatinine Ur Creatinine 24 Hour Crossmatch 03/07/18 03/08/18 03/08/18 06:32 04:30 11:54 WBC 13.9 H RBC 2.36 L Hgb 7.1 L Hct 21.2 L MCV MCHC RDW 16.5 H Lymph % (Auto) Lymph # Seg Neutrophils % Seg Neuts % (Manual) 91.0 H Lymphocytes % (Manual) 2.0 L Monocytes % (Manual) Nucleated RBC % Seg Neutrophils # Seg Neutrophils # Man 12.6 H Lymphocytes # (Manual) 0.3 L Monocytes # (Manual) PT INR POC ABG pH 7.498 H POC ABG pCO2 30.2 L POC ABG pO2 44 L Sodium Potassium Chloride Carbon Dioxide BUN Creatinine Glucose POC Glucose 121 H Lactic Acid Calcium Phosphorus Magnesium Total Bilirubin AST C-Reactive Protein Albumin Urine Creatinine Ur Creatinine 24 Hour Crossmatch 03/08/18 03/08/18 03/09/18 18:29 23:52 05:45 WBC 12.9 H RBC 2.31 L Hgb 6.9 L Hct 20.9 L MCV MCHC RDW 16.7 H Lymph % (Auto) 5.5 L Lymph # 0.7 L Seg Neutrophils % 89.2 H Seg Neuts % (Manual) Lymphocytes % (Manual) Monocytes % (Manual) Nucleated RBC % Seg Neutrophils # 11.5 H Seg Neutrophils # Man Lymphocytes # (Manual) Monocytes # (Manual) PT INR POC ABG pH POC ABG pCO2 POC ABG pO2 Sodium Potassium Chloride Carbon Dioxide BUN Creatinine Glucose POC Glucose 106 H 115 H Lactic Acid Calcium Phosphorus Magnesium Total Bilirubin AST C-Reactive Protein Albumin Urine Creatinine Ur Creatinine 24 Hour Crossmatch 03/09/18 03/09/18 03/09/18 06:13 12:00 12:20 WBC RBC Hgb Hct MCV MCHC RDW Lymph % (Auto) Lymph # Seg Neutrophils % Seg Neuts % (Manual) Lymphocytes % (Manual) Monocytes % (Manual) Nucleated RBC % Seg Neutrophils # Seg Neutrophils # Man Lymphocytes # (Manual) Monocytes # (Manual) PT INR POC ABG pH POC ABG pCO2 POC ABG pO2 Sodium Potassium 3.3 L Chloride 82.2 L Carbon Dioxide 19 L D BUN 62 H Creatinine 3.0 H Glucose POC Glucose 122 H 113 H Lactic Acid Calcium 6.1 L D Phosphorus Magnesium Total Bilirubin AST C-Reactive Protein Albumin Urine Creatinine Ur Creatinine 24 Hour Crossmatch 03/09/18 03/09/18 03/10/18 13:30 17:38 06:55 WBC RBC 1.94 L Hgb 6.0 L Hct 17.8 L* MCV MCHC RDW 16.6 H Lymph % (Auto) 4.6 L Lymph # 0.5 L Seg Neutrophils % 90.0 H Seg Neuts % (Manual) Lymphocytes % (Manual) Monocytes % (Manual) Nucleated RBC % Seg Neutrophils # 9.1 H Seg Neutrophils # Man Lymphocytes # (Manual) Monocytes # (Manual) PT INR POC ABG pH POC ABG pCO2 POC ABG pO2 Sodium Potassium Chloride Carbon Dioxide BUN Creatinine Glucose POC Glucose Lactic Acid Calcium Phosphorus Magnesium Total Bilirubin AST C-Reactive Protein Albumin Urine Creatinine 69.2 H 69.2 H Ur Creatinine 24 Hour 0.3 L Crossmatch 03/10/18 03/10/18 03/10/18 06:55 09:00 12:14 WBC RBC Hgb Hct MCV MCHC RDW Lymph % (Auto) Lymph # Seg Neutrophils % Seg Neuts % (Manual) Lymphocytes % (Manual) Monocytes % (Manual) Nucleated RBC % Seg Neutrophils # Seg Neutrophils # Man Lymphocytes # (Manual) Monocytes # (Manual) PT INR POC ABG pH POC ABG pCO2 POC ABG pO2 Sodium 135 L Potassium Chloride 90.2 L Carbon Dioxide BUN 82 H Creatinine 3.9 H Glucose POC Glucose 107 H Lactic Acid Calcium 7.6 L D Phosphorus Magnesium Total Bilirubin AST C-Reactive Protein Albumin Urine Creatinine Ur Creatinine 24 Hour Crossmatch See Detail 03/10/18 03/10/18 03/11/18 18:14 20:02 14:25 WBC RBC Hgb 7.7 L Hct 23.3 L MCV MCHC RDW Lymph % (Auto) Lymph # Seg Neutrophils % Seg Neuts % (Manual) Lymphocytes % (Manual) Monocytes % (Manual) Nucleated RBC % Seg Neutrophils # Seg Neutrophils # Man Lymphocytes # (Manual) Monocytes # (Manual) PT INR POC ABG pH POC ABG pCO2 POC ABG pO2 Sodium Potassium Chloride 94.6 L Carbon Dioxide BUN 69 H Creatinine 3.7 H Glucose POC Glucose 126 H Lactic Acid Calcium 8.0 L Phosphorus Magnesium Total Bilirubin AST C-Reactive Protein Albumin Urine Creatinine Ur Creatinine 24 Hour Crossmatch 03/12/18 03/12/18 03/12/18 04:19 05:45 05:45 WBC RBC 2.44 L Hgb 7.4 L Hct 22.6 L MCV MCHC RDW 16.1 H Lymph % (Auto) Lymph # Seg Neutrophils % Seg Neuts % (Manual) Lymphocytes % (Manual) Monocytes % (Manual) Nucleated RBC % Seg Neutrophils # Seg Neutrophils # Man Lymphocytes # (Manual) Monocytes # (Manual) PT INR POC ABG pH POC ABG pCO2 POC ABG pO2 71 L Sodium Potassium Chloride 95.1 L Carbon Dioxide BUN 72 H Creatinine 4.0 H Glucose POC Glucose Lactic Acid Calcium 7.9 L Phosphorus Magnesium Total Bilirubin AST C-Reactive Protein Albumin Urine Creatinine Ur Creatinine 24 Hour Crossmatch Allied health notes reviewed: RT
[2018-03-13] MEDS: fentaNYL DRIP Premix 2,000 MCG/100 ML BAG IV SCH ×4 (02:45→23:42)
[2018-03-13] MEDS: KEPPRA FEEDTUBE SCH ×2 (06:30→18:32)
[2018-03-13] MEDS: HumuLIN R SUB-Q SCH ×4 (06:47→18:33)
[2018-03-13] MEDS: DUONEB *Not for PRN Use IH SCH ×3 (08:25→23:21)
--- NOTE | 2018-03-13 08:47 | Progress Note ---
Assessment and Plan 72-year-old male with history of cerebrovascular accident and hemiplegia, Alzheimer's and nonverbal from [facility] sent for altered mental state. Since yesterday and high fever and increasing shortness of breath and respiratory distress. Patient's temperature was 103.2F in the initial evaluation in the emergency room. Patient was also severely tachypneic with respiratory rate of 40. Sudden onset. No exacerbating or relieving factors. [facility] a [facility] of [facility]. 03/03: Went into cardiopulmonary arrest. Resuscitated according to ACLS protocol and commenced on IV Levophed for hypotension 03/05: Pt had recurrent seizure over the night and CT head showed right MCA acute /subacute stroke and calcified meningioma in the left frontal area 03/12: commence on renal replacemtn therapy 03/11 Septic Shock * started on Zyvox started * Blood Cx negative Tracheal aspirate positive for MRSA * continue isolation per ID * on pressors Cardiopulmonary arrest * Resuscitated according to ACLS protocol * Continue with Levophed drip for hypotension Acute Hypoxemic Respiratory Failure * Continues on mechanical ventilation >72HRS * Pulmonary following. * Aspiration precautions * IV solumedrol taper and Nebs Aspiration Pneumonia- Multilobar * Continue abx as noted above * Cultures showing MRSA, GAS * PCN AND CLINDAMYCIN ADDED * CONTACT [facility] Acute Encephalopathy * patient with alzhimers disease Acute/ Subacute right MCA distribution stroke * Continue with Keppra Meningioma left frontal area 2.8 x 2.2cm * calcified, old. Acute Kidney injury now requiring rnal replacemtn therapy * Likely secondary to ATN Sacral Pressure ulcer * wound care consult BPH * Continue Finasteride Hyperlipidemia * continue statin CVA PER HX-WITH LEFT SIDED HEMIPLEGIA * Complete immobility due to frailty per documentation ANEMIA * Of chronic disease. Will transfuse blood one unit DVT/GI prophy Poor prognosis The high probability of a clinically significant, sudden or life threatening deterioration of the [PULMONARY] system(s) required my full and direct attention , intervention and personal management. The aggregate critical care time was [45 ] minutes. This time is in addition to time spent performing reported procedures but includes the following: [X] Data Review and interpretation [X] Patient assessment and monitoring of vital signs [X] Documentation [X] Medication orders and management Subjective Date of service: 03/13/18 Principal diagnosis: Acute Hypoxemic Resp Failure; Severe Sepsis; Aspiration Pneumonai (HCAP) Interval history: Patent seen and examined. No overnight event reported by pt's nursing staff. No more seizure. Pt remanis intubated s/p cardiopulmonary arrest and supported by mechanical ventilation in the ICU Objective - Exam Narrative Exam: Constitutional: intubated and on mechanical ventilation. Afebrile. in no distress Head: Normocephalic atraumatic Eyes: Pupils are equal round and reactive to light Nose: No enlarged turbinates, no septal deviation. Mouth: Moist mucous membranes. Neck: Supple no thyromegaly. No bruit. No JVD Heart: Regular rate and rhythm, S1-S2 abnormal. No rubs murmurs or gallop Lungs: Decreased breath sound bilaterally no rales or rhonchi Abdomen: Soft, nontender. Bowel sound are present. Extremities: No edema no cyanosis and no clubbing. Neuro: Alert oriented Oriented x3. No focal sensory or motor deficit. Skin: No rashes no hyperemic spots Psychiatry: Euthymic. Calm. - Constitutional Vitals: Vital Signs - 12hr 03/12/18 03/12/18 03/12/18 21:00 22:00 23:00 Temperature Pulse Rate 102 H 108 H 98 H Pulse Rate [ Anterior Bilateral Throughout] Pulse Rate [ From Monitor] Respiratory 14 14 14 Rate Respiratory Rate [Anterior Bilateral Throughout] Blood Pressure 120/76 118/66 107/68 O2 Sat by Pulse 97 96 96 Oximetry 03/12/18 03/12/18 03/12/18 23:07 23:13 23:15 Temperature Pulse Rate 103 H 102 H Pulse Rate [ 103 H Anterior Bilateral Throughout] Pulse Rate [ From Monitor] Respiratory 14 Rate Respiratory 18 Rate [Anterior Bilateral Throughout] Blood Pressure 107/68 107/68 O2 Sat by Pulse 97 96 Oximetry 03/12/18 03/13/18 03/13/18 23:34 00:00 00:47 Temperature 98.8 F 98.8 F Pulse Rate 109 H Pulse Rate [ 105 H Anterior Bilateral Throughout] Pulse Rate [ 98 H From Monitor] Respiratory 14 Rate Respiratory 16 Rate [Anterior Bilateral Throughout] Blood Pressure 115/65 O2 Sat by Pulse 98 Oximetry 03/13/18 03/13/18 03/13/18 01:00 02:00 03:00 Temperature Pulse Rate 106 H 109 H 111 H Pulse Rate [ Anterior Bilateral Throughout] Pulse Rate [ From Monitor] Respiratory 14 15 15 Rate Respiratory Rate [Anterior Bilateral Throughout] Blood Pressure 115/72 124/79 134/87 O2 Sat by Pulse 97 97 96 Oximetry 03/13/18 03/13/18 03/13/18 03:24 04:00 04:01 Temperature 97.5 F L Pulse Rate 109 H 123 H Pulse Rate [ Anterior Bilateral Throughout] Pulse Rate [ 98 H From Monitor] Respiratory 30 H 20 Rate Respiratory Rate [Anterior Bilateral Throughout] Blood Pressure 134/87 134/87 O2 Sat by Pulse 98 95 93 Oximetry 03/13/18 03/13/18 03/13/18 05:00 06:00 07:00 Temperature 97.5 F L Pulse Rate 111 H 111 H 111 H Pulse Rate [ Anterior Bilateral Throughout] Pulse Rate [ From Monitor] Respiratory 12 12 12 Rate Respiratory Rate [Anterior Bilateral Throughout] Blood Pressure 152/100 136/72 108/73 O2 Sat by Pulse 100 100 100 Oximetry 03/13/18 03/13/18 08:17 08:25 Temperature Pulse Rate 112 H Pulse Rate [ 113 H Anterior Bilateral Throughout] Pulse Rate [ From Monitor] Respiratory Rate Respiratory 13 Rate [Anterior Bilateral Throughout] Blood Pressure 111/72 O2 Sat by Pulse 98 Oximetry - Labs CBC & Chem 7: 03/12/18 05:45 03/13/18 06:30 Labs: Abnormal lab results 03/13/18 Range/Units 06:30 Sodium 136 L (137-145) mmol/L Chloride 91.8 L (98-107) mmol/L BUN 76 H (9-20) mg/dL Creatinine 4.1 H (0.8-1.5) mg/dL Calcium 8.0 L (8.4-10.2) mg/dL
[2018-03-13] MEDS: BABY ASPIRIN PO SCH (09:47)
[2018-03-13] MEDS: PEPCID PO SCH (09:47)
[2018-03-13] MEDS: HEPARIN SUB-Q SCH ×2 (09:48→23:42)
[2018-03-13] MEDS: SODIUM CHLORIDE FLUSH SYRINGE 10 ML IV SCH ×2 (10:02→19:24)
[2018-03-13] MEDS ORDERED: NACL 0.9% 100 ML IV PRN (10:18)
--- NOTE | 2018-03-13 10:43 | Progress Note ---
Assessment and Plan - Patient Problems (1) Acute on chronic renal failure Current Visit: Yes Status: Acute Qualifiers: Acute renal failure type: unspecified Chronic kidney disease stage: unspecified stage Qualified Code(s): N17.9 - Acute kidney failure, unspecified ; N18.9 - Chronic kidney disease, unspecified Plan to address problem: DIANNA- multifactorial. Multiple comorbid conditions-poor prognosis. Monitor renal function/ urine output. ID notes reviewed. Adjust meds per renal function. Poor candidate for [facility] dialysis (2) Acute hypoxemic respiratory failure Current Visit: Yes Status: Acute (3) Pneumonia Current Visit: Yes Status: Acute Qualifiers: Pneumonia type: due to unspecified organism Laterality: left Lung location: lower lobe of lung Qualified Code(s): J18.1 - Lobar pneumonia, unspecified organism (4) Sepsis Current Visit: Yes Status: Acute Qualifiers: Sepsis type: sepsis due to unspecified organism Qualified Code(s): A41.9 - Sepsis, unspecified organism (5) Acute CVA (cerebrovascular accident) Current Visit: No Status: Acute (6) Acute encephalopathy Current Visit: No Status: Acute Subjective Date of service: 03/13/18 Principal diagnosis: Acute Hypoxemic Resp Failure; Severe Sepsis; Aspiration Pneumonai (HCAP) Interval history: pt is orally intubated, on ventilator, Fio2- 55%, sedated. Chart was reviewed, spoke with pt's nurse. Objective - Vital Signs Vital signs: Vital Signs - 12hr 03/12/18 03/12/18 03/12/18 23:00 23:07 23:13 Temperature Pulse Rate 98 H 103 H 102 H Pulse Rate [ Anterior Bilateral Throughout] Pulse Rate [ From Monitor] Respiratory 14 14 Rate Respiratory Rate [Anterior Bilateral Throughout] Blood Pressure 107/68 107/68 107/68 O2 Sat by Pulse 96 97 96 Oximetry 03/12/18 03/12/18 03/13/18 23:15 23:34 00:00 Temperature 98.8 F Pulse Rate 109 H Pulse Rate [ 103 H 105 H Anterior Bilateral Throughout] Pulse Rate [ 98 H From Monitor] Respiratory 14 Rate Respiratory 18 16 Rate [Anterior Bilateral Throughout] Blood Pressure 115/65 O2 Sat by Pulse 98 Oximetry 03/13/18 03/13/18 03/13/18 00:47 01:00 02:00 Temperature 98.8 F Pulse Rate 106 H 109 H Pulse Rate [ Anterior Bilateral Throughout] Pulse Rate [ From Monitor] Respiratory 14 15 Rate Respiratory Rate [Anterior Bilateral Throughout] Blood Pressure 115/72 124/79 O2 Sat by Pulse 97 97 Oximetry 03/13/18 03/13/18 03/13/18 03:00 03:24 04:00 Temperature 97.5 F L Pulse Rate 111 H 109 H Pulse Rate [ Anterior Bilateral Throughout] Pulse Rate [ 98 H From Monitor] Respiratory 15 30 H Rate Respiratory Rate [Anterior Bilateral Throughout] Blood Pressure 134/87 134/87 O2 Sat by Pulse 96 98 95 Oximetry 03/13/18 03/13/18 03/13/18 04:01 05:00 06:00 Temperature 97.5 F L Pulse Rate 123 H 111 H 111 H Pulse Rate [ Anterior Bilateral Throughout] Pulse Rate [ From Monitor] Respiratory 20 12 12 Rate Respiratory Rate [Anterior Bilateral Throughout] Blood Pressure 134/87 152/100 136/72 O2 Sat by Pulse 93 100 100 Oximetry 03/13/18 03/13/18 03/13/18 07:00 08:00 08:17 Temperature 98.5 F Pulse Rate 111 H 114 H 112 H Pulse Rate [ Anterior Bilateral Throughout] Pulse Rate [ 110 H From Monitor] Respiratory 12 22 Rate Respiratory Rate [Anterior Bilateral Throughout] Blood Pressure 108/73 108/73 111/72 O2 Sat by Pulse 100 95 98 Oximetry 03/13/18 03/13/18 03/13/18 08:25 09:00 09:07 Temperature Pulse Rate 112 H Pulse Rate [ 113 H 116 H Anterior Bilateral Throughout] Pulse Rate [ From Monitor] Respiratory 12 Rate Respiratory 13 15 Rate [Anterior Bilateral Throughout] Blood Pressure 143/79 O2 Sat by Pulse 99 Oximetry 03/13/18 10:00 Temperature Pulse Rate 118 H Pulse Rate [ Anterior Bilateral Throughout] Pulse Rate [ From Monitor] Respiratory 13 Rate Respiratory Rate [Anterior Bilateral Throughout] Blood Pressure 141/80 O2 Sat by Pulse 98 Oximetry - General Appearance General appearance: chronically ill, sedated on ventilator EENT: mucous membranes dry Neck: no JVD Respiratory: Present: Decreased Breath Sounds Cardiology: regular, tachycardia Gastrointestinal: normoactive bowel sounds Neurologic: other (eyes open, not following commands) - Lab 03/12/18 05:45 03/13/18 06:30 Most recent lab results Calcium 8.0 mg/dL (8.4-10.2) L 03/13/18 06:30 Phosphorus 5.10 mg/dL (2.5-4.5) H 03/03/18 04:30 Magnesium 1.40 mg/dL (1.7-2.3) L 03/03/18 12:37 Urine Creatinine 69.2 mg/dL (0.1-20.0) H 03/09/18 17:38 Urine Sodium 67 mmol/L 02/26/18 13:08
--- NOTE | 2018-03-13 11:40 | Progress Note ---
Assessment and Plan Severe sepsis with septic shock. Aspiration pneumonia, healthcare associated. Acute on chronic encephalopathy. Acute on chronic kidney injury. Anemia. Hypernatremia. Metabolic acidosis. Lactic acidosis. History of hypertension. History of diabetes. History of Alzheimer dementia. - get ABG and address as necessary - keep Peep at 7 cmH2O for now - tolerating HD/UF well so far - s/p LIJ vascath - awaiting tracheostomy - continue bronchodilators with pulmonary hygiene per RT - continue to wean FiO2 for sats > 90% - continue addressing VAP bundle daily - continue to wean levophed for MAP > 65 mmHg - strict I's & O's re: DIANNA and will leave shrestha catheter in place for now - further azotemia management per portfolio specialist (input appreciated) - conservative volume management strategies at this point - continue to trend CRP and lactate prn - continue enteral nutrition as tolerated - continue mobility protocol for pressure ulcer prophylaxis - continue GI & VTE prophylaxis - continue antibiotics; on vancomycin for MRSA pneumonia and following other cultures - ID evaluation ongoing - continue contact precautions as now 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 The aggregate critical care time was [30] minutes without overlap. Time includes spent on; [x] Data Review and interpretation [x] Patient assessment and monitoring of vital signs [x] Documentation [x] Medication orders and management Subjective Date of service: 03/13/18 Principal diagnosis: Acute Hypoxemic Resp Failure; Severe Sepsis; Aspiration Pneumonai (HCAP) Interval history: Patient is seen today for: Acute Hypoxemic Resp Failure; Severe Sepsis; Aspiration Pneumonai (HCAP) Seen and examined at bedside; 24hour events reviewed; nursing and respiratory care staff consulted; no adverse overnight events reported to me; remains on MVS ; remains hypoxemic with FiO2 at 55%; AMS is persistent; awaiting tentative tracheostomy tomorrow if indices appropriate; no emesis or overt aspiration Objective Vital Signs - 12hr 03/13/18 03/13/18 03/13/18 00:00 00:47 01:00 Temperature 98.8 F 98.8 F Pulse Rate 109 H 106 H Pulse Rate [ Anterior Bilateral Throughout] Pulse Rate [ 98 H From Monitor] Respiratory 14 14 Rate Respiratory Rate [Anterior Bilateral Throughout] Respiratory Rate [pt denies ] Blood Pressure 115/65 115/72 O2 Sat by Pulse 98 97 Oximetry 03/13/18 03/13/18 03/13/18 02:00 03:00 03:24 Temperature Pulse Rate 109 H 111 H 109 H Pulse Rate [ Anterior Bilateral Throughout] Pulse Rate [ From Monitor] Respiratory 15 15 Rate Respiratory Rate [Anterior Bilateral Throughout] Respiratory Rate [pt denies ] Blood Pressure 124/79 134/87 134/87 O2 Sat by Pulse 97 96 98 Oximetry 03/13/18 03/13/18 03/13/18 04:00 04:01 05:00 Temperature 97.5 F L 97.5 F L Pulse Rate 123 H 111 H Pulse Rate [ Anterior Bilateral Throughout] Pulse Rate [ 98 H From Monitor] Respiratory 30 H 20 12 Rate Respiratory Rate [Anterior Bilateral Throughout] Respiratory Rate [pt denies ] Blood Pressure 134/87 152/100 O2 Sat by Pulse 95 93 100 Oximetry 03/13/18 03/13/18 03/13/18 06:00 07:00 08:00 Temperature 98.5 F Pulse Rate 111 H 111 H 114 H Pulse Rate [ Anterior Bilateral Throughout] Pulse Rate [ 110 H From Monitor] Respiratory 12 12 22 Rate Respiratory Rate [Anterior Bilateral Throughout] Respiratory Rate [pt denies ] Blood Pressure 136/72 108/73 108/73 O2 Sat by Pulse 100 100 95 Oximetry 03/13/18 03/13/18 03/13/18 08:17 08:25 09:00 Temperature Pulse Rate 112 H 112 H Pulse Rate [ 113 H Anterior Bilateral Throughout] Pulse Rate [ From Monitor] Respiratory 12 Rate Respiratory 13 Rate [Anterior Bilateral Throughout] Respiratory Rate [pt denies ] Blood Pressure 111/72 143/79 O2 Sat by Pulse 98 99 Oximetry 03/13/18 03/13/18 03/13/18 09:07 10:00 11:00 Temperature Pulse Rate 118 H 113 H Pulse Rate [ 116 H Anterior Bilateral Throughout] Pulse Rate [ From Monitor] Respiratory 13 12 Rate Respiratory 15 Rate [Anterior Bilateral Throughout] Respiratory 20 Rate [pt denies ] Blood Pressure 141/80 118/54 O2 Sat by Pulse 98 97 Oximetry 03/13/18 11:32 Temperature Pulse Rate 117 H Pulse Rate [ Anterior Bilateral Throughout] Pulse Rate [ From Monitor] Respiratory Rate Respiratory Rate [Anterior Bilateral Throughout] Respiratory Rate [pt denies ] Blood Pressure 118/54 O2 Sat by Pulse 99 Oximetry Constitutional: appears uncomfortable, other (elderly looking AAM, normocephalic and atraumativ on MVS with increased respiratory effort) Eyes: non-icteric ENT: oropharynx moist, other (ETT 24 cm TERESA) Neck: supple, no lymphadenopathy, no JVD, other (no thyromegaly) Effort: mildly labored Ascultation: Bilateral: diminished breath sounds, rales Percussion: Bilateral: not dull Cardiovascular: regular rate and rhythm, other (No R/M, S1,S2) Gastrointestinal: normoactive bowel sounds, soft, non-tender, non-distended, other (+ PEG; No HSM, scrotal edema) Integumentary: other (poor turgor) Extremities: no cyanosis, pulses normal, no ischemia or petechiae, anasarca Neurologic: pupils equal and round, unable to assess Psychiatric: other (unable to assess re: encephalopathy) CBC and BMP: 03/12/18 05:45 03/13/18 06:30 ABG, PT/INR, D-dimer: ABG POC ABG pH 7.391 (7.35-7.45) 03/12/18 04:19 POC ABG pCO2 41.3 (35-45) 03/12/18 04:19 POC ABG pO2 71 (80-105) L 03/12/18 04:19 POC ABG HCO3 25.1 03/12/18 04:19 POC ABG Total CO2 26 03/12/18 04:19 POC ABG O2 Sat 94 03/12/18 04:19 PT/INR, D-dimer PT 21.5 Sec. (12.2-14.9) H 02/26/18 20:50 INR 1.75 (0.87-1.13) H 02/26/18 20:50 Abnormal lab findings: Abnormal Labs 02/25/18 02/25/18 02/25/18 23:15 23:15 23:15 WBC 12.3 H RBC 3.56 L Hgb 10.2 L Hct 33.7 L MCV 95 H MCHC 30 L RDW 17.7 H Lymph % (Auto) Lymph # Seg Neutrophils % Seg Neuts % (Manual) 35.0 L Lymphocytes % (Manual) 13.0 L Monocytes % (Manual) 8.0 H Nucleated RBC % Seg Neutrophils # Seg Neutrophils # Man Lymphocytes # (Manual) Monocytes # (Manual) 1.0 H PT 20.3 H INR 1.63 H POC ABG pH POC ABG pCO2 POC ABG pO2 Sodium 152 H Potassium Chloride 108.7 H Carbon Dioxide 18 L BUN 136 H Creatinine 5.2 H Glucose POC Glucose Lactic Acid Calcium 8.0 L Phosphorus Magnesium Total Bilirubin 4.50 H AST 83 H C-Reactive Protein Albumin 2.7 L Urine Creatinine Ur Creatinine 24 Hour Crossmatch 02/25/18 02/25/18 02/26/18 23:15 23:30 03:06 WBC RBC Hgb Hct MCV MCHC RDW Lymph % (Auto) Lymph # Seg Neutrophils % Seg Neuts % (Manual) Lymphocytes % (Manual) Monocytes % (Manual) Nucleated RBC % Seg Neutrophils # Seg Neutrophils # Man Lymphocytes # (Manual) Monocytes # (Manual) PT INR POC ABG pH POC ABG pCO2 25.2 L POC ABG pO2 69 L Sodium Potassium Chloride Carbon Dioxide BUN Creatinine Glucose POC Glucose Lactic Acid 7.00 H* 9.70 H* Calcium Phosphorus Magnesium Total Bilirubin AST C-Reactive Protein Albumin Urine Creatinine Ur Creatinine 24 Hour Crossmatch 02/26/18 02/26/18 02/26/18 05:12 05:43 07:39 WBC 23.7 H RBC 3.27 L Hgb 9.3 L Hct 31.1 L MCV 95 H MCHC 30 L RDW 17.4 H Lymph % (Auto) Lymph # Seg Neutrophils % Seg Neuts % (Manual) Lymphocytes % (Manual) 2.0 L Monocytes % (Manual) Nucleated RBC % 1.0 H Seg Neutrophils # Seg Neutrophils # Man 16.1 H Lymphocytes # (Manual) 0.5 L Monocytes # (Manual) 1.2 H PT INR POC ABG pH POC ABG pCO2 19.5 L POC ABG pO2 72 L Sodium Potassium Chloride Carbon Dioxide BUN Creatinine Glucose POC Glucose Lactic Acid 8.80 H* Calcium Phosphorus Magnesium Total Bilirubin AST C-Reactive Protein Albumin Urine Creatinine Ur Creatinine 24 Hour Crossmatch 02/26/18 02/26/18 02/26/18 07:39 12:06 13:08 WBC RBC Hgb Hct MCV MCHC RDW Lymph % (Auto) Lymph # Seg Neutrophils % Seg Neuts % (Manual) Lymphocytes % (Manual) Monocytes % (Manual) Nucleated RBC % Seg Neutrophils # Seg Neutrophils # Man Lymphocytes # (Manual) Monocytes # (Manual) PT INR POC ABG pH POC ABG pCO2 27.8 L POC ABG pO2 168 H Sodium 155 H Potassium Chloride 114.2 H Carbon Dioxide 14 L BUN 120 H Creatinine 4.6 H Glucose 108 H POC Glucose Lactic Acid Calcium 7.7 L Phosphorus Magnesium Total Bilirubin 4.50 H AST 105 H C-Reactive Protein Albumin 2.4 L Urine Creatinine 38.6 H Ur Creatinine 24 Hour Crossmatch 02/26/18 02/26/18 02/26/18 18:41 20:50 20:50 WBC RBC Hgb Hct MCV MCHC RDW Lymph % (Auto) Lymph # Seg Neutrophils % Seg Neuts % (Manual) Lymphocytes % (Manual) Monocytes % (Manual) Nucleated RBC % Seg Neutrophils # Seg Neutrophils # Man Lymphocytes # (Manual) Monocytes # (Manual) PT 21.5 H INR 1.75 H POC ABG pH POC ABG pCO2 POC ABG pO2 Sodium Potassium Chloride Carbon Dioxide BUN Creatinine Glucose POC Glucose 135 H Lactic Acid Calcium Phosphorus Magnesium Total Bilirubin AST C-Reactive Protein 33.90 H Albumin Urine Creatinine Ur Creatinine 24 Hour Crossmatch 02/27/18 02/27/18 02/27/18 03:39 04:56 04:56 WBC 20.1 H RBC 2.92 L Hgb 8.4 L Hct 27.5 L MCV MCHC 31 L RDW 17.1 H Lymph % (Auto) Lymph # Seg Neutrophils % Seg Neuts % (Manual) 92.0 H Lymphocytes % (Manual) 3.0 L Monocytes % (Manual) Nucleated RBC % Seg Neutrophils # Seg Neutrophils # Man 18.5 H Lymphocytes # (Manual) 0.6 L Monocytes # (Manual) PT INR POC ABG pH 7.453 H POC ABG pCO2 27.2 L POC ABG pO2 Sodium 149 H Potassium Chloride 113.1 H Carbon Dioxide 18 L BUN 103 H Creatinine 3.8 H Glucose 120 H POC Glucose Lactic Acid Calcium 7.8 L Phosphorus Magnesium Total Bilirubin AST C-Reactive Protein Albumin Urine Creatinine Ur Creatinine 24 Hour Crossmatch 02/27/18 02/27/18 02/27/18 12:37 12:45 17:51 WBC RBC Hgb Hct MCV MCHC RDW Lymph % (Auto) Lymph # Seg Neutrophils % Seg Neuts % (Manual) Lymphocytes % (Manual) Monocytes % (Manual) Nucleated RBC % Seg Neutrophils # Seg Neutrophils # Man Lymphocytes # (Manual) Monocytes # (Manual) PT INR POC ABG pH POC ABG pCO2 POC ABG pO2 Sodium Potassium Chloride Carbon Dioxide BUN Creatinine Glucose POC Glucose 169 H 133 H Lactic Acid 2.90 H* Calcium Phosphorus Magnesium Total Bilirubin AST C-Reactive Protein Albumin Urine Creatinine Ur Creatinine 24 Hour Crossmatch 02/28/18 02/28/18 02/28/18 00:23 05:00 05:02 WBC RBC Hgb Hct MCV MCHC RDW Lymph % (Auto) Lymph # Seg Neutrophils % Seg Neuts % (Manual) Lymphocytes % (Manual) Monocytes % (Manual) Nucleated RBC % Seg Neutrophils # Seg Neutrophils # Man Lymphocytes # (Manual) Monocytes # (Manual) PT INR POC ABG pH POC ABG pCO2 POC ABG pO2 Sodium Potassium Chloride Carbon Dioxide BUN Creatinine Glucose POC Glucose 161 H 116 H Lactic Acid 2.70 H* Calcium Phosphorus Magnesium Total Bilirubin AST C-Reactive Protein Albumin Urine Creatinine Ur Creatinine 24 Hour Crossmatch 02/28/18 02/28/18 02/28/18 05:28 07:04 09:00 WBC 22.3 H RBC 2.63 L Hgb 7.6 L Hct 24.1 L MCV MCHC 31 L RDW 17.4 H Lymph % (Auto) Lymph # Seg Neutrophils % Seg Neuts % (Manual) 84.0 H Lymphocytes % (Manual) 8.0 L Monocytes % (Manual) Nucleated RBC % Seg Neutrophils # Seg Neutrophils # Man 18.7 H Lymphocytes # (Manual) Monocytes # (Manual) 1.1 H PT INR POC ABG pH 7.477 H POC ABG pCO2 24.6 L POC ABG pO2 57 L Sodium Potassium Chloride Carbon Dioxide BUN Creatinine Glucose POC Glucose Lactic Acid 3.10 H* Calcium Phosphorus Magnesium Total Bilirubin AST C-Reactive Protein Albumin Urine Creatinine Ur Creatinine 24 Hour Crossmatch 02/28/18 02/28/18 02/28/18 09:00 11:36 17:10 WBC RBC Hgb Hct MCV MCHC RDW Lymph % (Auto) Lymph # Seg Neutrophils % Seg Neuts % (Manual) Lymphocytes % (Manual) Monocytes % (Manual) Nucleated RBC % Seg Neutrophils # Seg Neutrophils # Man Lymphocytes # (Manual) Monocytes # (Manual) PT INR POC ABG pH POC ABG pCO2 POC ABG pO2 Sodium Potassium 3.3 L 3.5 L Chloride Carbon Dioxide 21 L 19 L BUN 76 H 69 H Creatinine 2.8 H 2.5 H Glucose 104 H 124 H POC Glucose 107 H Lactic Acid Calcium 7.6 L 7.3 L Phosphorus 1.50 L Magnesium Total Bilirubin AST C-Reactive Protein Albumin Urine Creatinine Ur Creatinine 24 Hour Crossmatch 02/28/18 02/28/18 03/01/18 17:36 23:40 06:25 WBC RBC Hgb Hct MCV MCHC RDW Lymph % (Auto) Lymph # Seg Neutrophils % Seg Neuts % (Manual) Lymphocytes % (Manual) Monocytes % (Manual) Nucleated RBC % Seg Neutrophils # Seg Neutrophils # Man Lymphocytes # (Manual) Monocytes # (Manual) PT INR POC ABG pH 7.542 H POC ABG pCO2 23.3 L POC ABG pO2 62 L Sodium Potassium Chloride Carbon Dioxide BUN Creatinine Glucose POC Glucose 151 H 111 H Lactic Acid Calcium Phosphorus Magnesium Total Bilirubin AST C-Reactive Protein Albumin Urine Creatinine Ur Creatinine 24 Hour Crossmatch 03/01/18 03/01/18 03/02/18 10:00 12:12 05:21 WBC RBC Hgb Hct MCV MCHC RDW Lymph % (Auto) Lymph # Seg Neutrophils % Seg Neuts % (Manual) Lymphocytes % (Manual) Monocytes % (Manual) Nucleated RBC % Seg Neutrophils # Seg Neutrophils # Man Lymphocytes # (Manual) Monocytes # (Manual) PT INR POC ABG pH 7.473 H POC ABG pCO2 21.5 L POC ABG pO2 79 L Sodium Potassium 3.5 L Chloride Carbon Dioxide 18 L BUN 66 H Creatinine 2.8 H Glucose 103 H POC Glucose 176 H Lactic Acid Calcium 7.5 L Phosphorus Magnesium Total Bilirubin AST C-Reactive Protein Albumin Urine Creatinine Ur Creatinine 24 Hour Crossmatch 03/02/18 03/02/18 03/02/18 06:00 06:00 11:47 WBC 18.2 H RBC 2.43 L Hgb 7.2 L Hct 22.6 L MCV MCHC RDW 17.6 H Lymph % (Auto) Lymph # Seg Neutrophils % Seg Neuts % (Manual) Lymphocytes % (Manual) Monocytes % (Manual) Nucleated RBC % Seg Neutrophils # Seg Neutrophils # Man Lymphocytes # (Manual) Monocytes # (Manual) PT INR POC ABG pH POC ABG pCO2 POC ABG pO2 Sodium Potassium Chloride Carbon Dioxide 17 L BUN 68 H Creatinine 3.1 H Glucose 106 H POC Glucose 136 H Lactic Acid Calcium 7.2 L Phosphorus Magnesium Total Bilirubin AST C-Reactive Protein Albumin Urine Creatinine Ur Creatinine 24 Hour Crossmatch 03/02/18 03/03/18 03/03/18 17:35 00:54 03:38 WBC RBC Hgb Hct MCV MCHC RDW Lymph % (Auto) Lymph # Seg Neutrophils % Seg Neuts % (Manual) Lymphocytes % (Manual) Monocytes % (Manual) Nucleated RBC % Seg Neutrophils # Seg Neutrophils # Man Lymphocytes # (Manual) Monocytes # (Manual) PT INR POC ABG pH 7.451 H POC ABG pCO2 20.5 L POC ABG pO2 Sodium Potassium Chloride Carbon Dioxide BUN Creatinine Glucose POC Glucose 109 H 131 H Lactic Acid Calcium Phosphorus Magnesium Total Bilirubin AST C-Reactive Protein Albumin Urine Creatinine Ur Creatinine 24 Hour Crossmatch 03/03/18 03/03/18 03/03/18 04:30 06:15 06:15 WBC 21.1 H RBC 2.20 L Hgb 6.3 L Hct 20.8 L MCV 95 H MCHC 30 L RDW 17.8 H Lymph % (Auto) Lymph # Seg Neutrophils % Seg Neuts % (Manual) 71.0 H Lymphocytes % (Manual) 8.0 L Monocytes % (Manual) Nucleated RBC % Seg Neutrophils # Seg Neutrophils # Man 15.0 H Lymphocytes # (Manual) Monocytes # (Manual) 1.3 H PT INR POC ABG pH POC ABG pCO2 POC ABG pO2 Sodium 130 L D Potassium Chloride 96.4 L Carbon Dioxide 14 L BUN 69 H Creatinine 3.1 H Glucose POC Glucose Lactic Acid Calcium 7.0 L Phosphorus 5.10 H Magnesium Total Bilirubin AST C-Reactive Protein Albumin Urine Creatinine Ur Creatinine 24 Hour Crossmatch 03/03/18 03/03/18 03/03/18 08:37 09:38 12:13 WBC RBC Hgb Hct MCV MCHC RDW Lymph % (Auto) Lymph # Seg Neutrophils % Seg Neuts % (Manual) Lymphocytes % (Manual) Monocytes % (Manual) Nucleated RBC % Seg Neutrophils # Seg Neutrophils # Man Lymphocytes # (Manual) Monocytes # (Manual) PT INR POC ABG pH POC ABG pCO2 23.8 L POC ABG pO2 156 H Sodium Potassium Chloride Carbon Dioxide BUN Creatinine Glucose POC Glucose 119 H Lactic Acid Calcium Phosphorus Magnesium Total Bilirubin AST C-Reactive Protein Albumin Urine Creatinine Ur Creatinine 24 Hour Crossmatch See Detail 03/03/18 03/03/18 03/04/18 12:37 18:05 00:59 WBC RBC Hgb Hct MCV MCHC RDW Lymph % (Auto) Lymph # Seg Neutrophils % Seg Neuts % (Manual) Lymphocytes % (Manual) Monocytes % (Manual) Nucleated RBC % Seg Neutrophils # Seg Neutrophils # Man Lymphocytes # (Manual) Monocytes # (Manual) PT INR POC ABG pH POC ABG pCO2 POC ABG pO2 Sodium Potassium Chloride Carbon Dioxide BUN Creatinine Glucose POC Glucose 154 H 159 H Lactic Acid Calcium Phosphorus Magnesium 1.40 L Total Bilirubin AST C-Reactive Protein Albumin Urine Creatinine Ur Creatinine 24 Hour Crossmatch 03/04/18 03/04/18 03/04/18 04:27 05:30 05:30 WBC 22.6 H RBC 2.46 L Hgb 7.1 L Hct 21.7 L MCV MCHC RDW 17.2 H Lymph % (Auto) Lymph # Seg Neutrophils % Seg Neuts % (Manual) 84.0 H Lymphocytes % (Manual) 5.0 L Monocytes % (Manual) Nucleated RBC % Seg Neutrophils # Seg Neutrophils # Man 19.0 H Lymphocytes # (Manual) 1.1 L Monocytes # (Manual) PT INR POC ABG pH 7.486 H POC ABG pCO2 24.8 L POC ABG pO2 Sodium 135 L Potassium Chloride 96.2 L Carbon Dioxide 19 L BUN 69 H Creatinine 3.1 H Glucose 121 H POC Glucose Lactic Acid Calcium 7.1 L Phosphorus Magnesium Total Bilirubin AST C-Reactive Protein 19.80 H Albumin Urine Creatinine Ur Creatinine 24 Hour Crossmatch 03/04/18 03/04/18 03/04/18 05:38 11:47 17:53 WBC RBC Hgb Hct MCV MCHC RDW Lymph % (Auto) Lymph # Seg Neutrophils % Seg Neuts % (Manual) Lymphocytes % (Manual) Monocytes % (Manual) Nucleated RBC % Seg Neutrophils # Seg Neutrophils # Man Lymphocytes # (Manual) Monocytes # (Manual) PT INR POC ABG pH POC ABG pCO2 POC ABG pO2 Sodium Potassium Chloride Carbon Dioxide BUN Creatinine Glucose POC Glucose 134 H 109 H 113 H Lactic Acid Calcium Phosphorus Magnesium Total Bilirubin AST C-Reactive Protein Albumin Urine Creatinine Ur Creatinine 24 Hour Crossmatch 03/05/18 03/05/18 03/05/18 00:22 05:15 05:15 WBC 24.3 H RBC 2.29 L Hgb 6.8 L Hct 20.3 L MCV MCHC RDW 16.7 H Lymph % (Auto) Lymph # Seg Neutrophils % Seg Neuts % (Manual) 88.0 H Lymphocytes % (Manual) 3.0 L Monocytes % (Manual) Nucleated RBC % Seg Neutrophils # Seg Neutrophils # Man 21.4 H Lymphocytes # (Manual) 0.7 L Monocytes # (Manual) PT INR POC ABG pH POC ABG pCO2 POC ABG pO2 Sodium 132 L Potassium Chloride 91.2 L Carbon Dioxide BUN 69 H Creatinine 3.3 H Glucose POC Glucose 113 H Lactic Acid Calcium 6.9 L Phosphorus Magnesium Total Bilirubin AST C-Reactive Protein Albumin Urine Creatinine Ur Creatinine 24 Hour Crossmatch 03/05/18 03/05/18 03/05/18 05:36 11:51 16:00 WBC RBC Hgb Hct MCV MCHC RDW Lymph % (Auto) Lymph # Seg Neutrophils % Seg Neuts % (Manual) Lymphocytes % (Manual) Monocytes % (Manual) Nucleated RBC % Seg Neutrophils # Seg Neutrophils # Man Lymphocytes # (Manual) Monocytes # (Manual) PT INR POC ABG pH 7.519 H POC ABG pCO2 27.0 L POC ABG pO2 68 L Sodium Potassium Chloride Carbon Dioxide BUN Creatinine Glucose POC Glucose 118 H 131 H Lactic Acid Calcium Phosphorus Magnesium Total Bilirubin AST C-Reactive Protein Albumin Urine Creatinine Ur Creatinine 24 Hour Crossmatch 03/06/18 03/06/18 03/06/18 00:00 01:27 04:44 WBC 24.5 H RBC 2.90 L Hgb 8.5 L Hct 25.8 L MCV MCHC RDW 16.3 H Lymph % (Auto) Lymph # Seg Neutrophils % Seg Neuts % (Manual) 96.0 H Lymphocytes % (Manual) 1.5 L Monocytes % (Manual) Nucleated RBC % 1.0 H Seg Neutrophils # Seg Neutrophils # Man 23.5 H Lymphocytes # (Manual) 0.4 L Monocytes # (Manual) PT INR POC ABG pH POC ABG pCO2 POC ABG pO2 Sodium Potassium Chloride 92.9 L Carbon Dioxide BUN 67 H Creatinine 3.4 H Glucose POC Glucose 127 H Lactic Acid Calcium 7.2 L Phosphorus Magnesium Total Bilirubin AST C-Reactive Protein Albumin Urine Creatinine Ur Creatinine 24 Hour Crossmatch 03/06/18 03/06/18 03/06/18 04:54 05:54 12:08 WBC RBC Hgb Hct MCV MCHC RDW Lymph % (Auto) Lymph # Seg Neutrophils % Seg Neuts % (Manual) Lymphocytes % (Manual) Monocytes % (Manual) Nucleated RBC % Seg Neutrophils # Seg Neutrophils # Man Lymphocytes # (Manual) Monocytes # (Manual) PT INR POC ABG pH 7.551 H POC ABG pCO2 29.5 L POC ABG pO2 57 L Sodium Potassium Chloride Carbon Dioxide BUN Creatinine Glucose POC Glucose 108 H 123 H Lactic Acid Calcium Phosphorus Magnesium Total Bilirubin AST C-Reactive Protein Albumin Urine Creatinine Ur Creatinine 24 Hour Crossmatch 03/06/18 03/07/18 03/07/18 21:16 05:00 05:00 WBC 17.5 H RBC 2.41 L Hgb 7.3 L Hct 21.5 L MCV MCHC RDW 16.6 H Lymph % (Auto) Lymph # Seg Neutrophils % Seg Neuts % (Manual) 97.0 H Lymphocytes % (Manual) 1.0 L Monocytes % (Manual) Nucleated RBC % Seg Neutrophils # Seg Neutrophils # Man 17.0 H Lymphocytes # (Manual) 0.2 L Monocytes # (Manual) PT INR POC ABG pH 7.639 H POC ABG pCO2 25.3 L POC ABG pO2 Sodium Potassium Chloride 90.6 L Carbon Dioxide BUN 65 H Creatinine 3.4 H Glucose POC Glucose Lactic Acid Calcium 7.3 L Phosphorus Magnesium Total Bilirubin AST C-Reactive Protein Albumin Urine Creatinine Ur Creatinine 24 Hour Crossmatch 03/07/18 03/08/18 03/08/18 06:32 04:30 11:54 WBC 13.9 H RBC 2.36 L Hgb 7.1 L Hct 21.2 L MCV MCHC RDW 16.5 H Lymph % (Auto) Lymph # Seg Neutrophils % Seg Neuts % (Manual) 91.0 H Lymphocytes % (Manual) 2.0 L Monocytes % (Manual) Nucleated RBC % Seg Neutrophils # Seg Neutrophils # Man 12.6 H Lymphocytes # (Manual) 0.3 L Monocytes # (Manual) PT INR POC ABG pH 7.498 H POC ABG pCO2 30.2 L POC ABG pO2 44 L Sodium Potassium Chloride Carbon Dioxide BUN Creatinine Glucose POC Glucose 121 H Lactic Acid Calcium Phosphorus Magnesium Total Bilirubin AST C-Reactive Protein Albumin Urine Creatinine Ur Creatinine 24 Hour Crossmatch 03/08/18 03/08/18 03/09/18 18:29 23:52 05:45 WBC 12.9 H RBC 2.31 L Hgb 6.9 L Hct 20.9 L MCV MCHC RDW 16.7 H Lymph % (Auto) 5.5 L Lymph # 0.7 L Seg Neutrophils % 89.2 H Seg Neuts % (Manual) Lymphocytes % (Manual) Monocytes % (Manual) Nucleated RBC % Seg Neutrophils # 11.5 H Seg Neutrophils # Man Lymphocytes # (Manual) Monocytes # (Manual) PT INR POC ABG pH POC ABG pCO2 POC ABG pO2 Sodium Potassium Chloride Carbon Dioxide BUN Creatinine Glucose POC Glucose 106 H 115 H Lactic Acid Calcium Phosphorus Magnesium Total Bilirubin AST C-Reactive Protein Albumin Urine Creatinine Ur Creatinine 24 Hour Crossmatch 03/09/18 03/09/18 03/09/18 06:13 12:00 12:20 WBC RBC Hgb Hct MCV MCHC RDW Lymph % (Auto) Lymph # Seg Neutrophils % Seg Neuts % (Manual) Lymphocytes % (Manual) Monocytes % (Manual) Nucleated RBC % Seg Neutrophils # Seg Neutrophils # Man Lymphocytes # (Manual) Monocytes # (Manual) PT INR POC ABG pH POC ABG pCO2 POC ABG pO2 Sodium Potassium 3.3 L Chloride 82.2 L Carbon Dioxide 19 L D BUN 62 H Creatinine 3.0 H Glucose POC Glucose 122 H 113 H Lactic Acid Calcium 6.1 L D Phosphorus Magnesium Total Bilirubin AST C-Reactive Protein Albumin Urine Creatinine Ur Creatinine 24 Hour Crossmatch 03/09/18 03/09/18 03/10/18 13:30 17:38 06:55 WBC RBC 1.94 L Hgb 6.0 L Hct 17.8 L* MCV MCHC RDW 16.6 H Lymph % (Auto) 4.6 L Lymph # 0.5 L Seg Neutrophils % 90.0 H Seg Neuts % (Manual) Lymphocytes % (Manual) Monocytes % (Manual) Nucleated RBC % Seg Neutrophils # 9.1 H Seg Neutrophils # Man Lymphocytes # (Manual) Monocytes # (Manual) PT INR POC ABG pH POC ABG pCO2 POC ABG pO2 Sodium Potassium Chloride Carbon Dioxide BUN Creatinine Glucose POC Glucose Lactic Acid Calcium Phosphorus Magnesium Total Bilirubin AST C-Reactive Protein Albumin Urine Creatinine 69.2 H 69.2 H Ur Creatinine 24 Hour 0.3 L Crossmatch 03/10/18 03/10/18 03/10/18 06:55 09:00 12:14 WBC RBC Hgb Hct MCV MCHC RDW Lymph % (Auto) Lymph # Seg Neutrophils % Seg Neuts % (Manual) Lymphocytes % (Manual) Monocytes % (Manual) Nucleated RBC % Seg Neutrophils # Seg Neutrophils # Man Lymphocytes # (Manual) Monocytes # (Manual) PT INR POC ABG pH POC ABG pCO2 POC ABG pO2 Sodium 135 L Potassium Chloride 90.2 L Carbon Dioxide BUN 82 H Creatinine 3.9 H Glucose POC Glucose 107 H Lactic Acid Calcium 7.6 L D Phosphorus Magnesium Total Bilirubin AST C-Reactive Protein Albumin Urine Creatinine Ur Creatinine 24 Hour Crossmatch See Detail 03/10/18 03/10/18 03/11/18 18:14 20:02 14:25 WBC RBC Hgb 7.7 L Hct 23.3 L MCV MCHC RDW Lymph % (Auto) Lymph # Seg Neutrophils % Seg Neuts % (Manual) Lymphocytes % (Manual) Monocytes % (Manual) Nucleated RBC % Seg Neutrophils # Seg Neutrophils # Man Lymphocytes # (Manual) Monocytes # (Manual) PT INR POC ABG pH POC ABG pCO2 POC ABG pO2 Sodium Potassium Chloride 94.6 L Carbon Dioxide BUN 69 H Creatinine 3.7 H Glucose POC Glucose 126 H Lactic Acid Calcium 8.0 L Phosphorus Magnesium Total Bilirubin AST C-Reactive Protein Albumin Urine Creatinine Ur Creatinine 24 Hour Crossmatch 03/12/18 03/12/18 03/12/18 04:19 05:45 05:45 WBC RBC 2.44 L Hgb 7.4 L Hct 22.6 L MCV MCHC RDW 16.1 H Lymph % (Auto) Lymph # Seg Neutrophils % Seg Neuts % (Manual) Lymphocytes % (Manual) Monocytes % (Manual) Nucleated RBC % Seg Neutrophils # Seg Neutrophils # Man Lymphocytes # (Manual) Monocytes # (Manual) PT INR POC ABG pH POC ABG pCO2 POC ABG pO2 71 L Sodium Potassium Chloride 95.1 L Carbon Dioxide BUN 72 H Creatinine 4.0 H Glucose POC Glucose Lactic Acid Calcium 7.9 L Phosphorus Magnesium Total Bilirubin AST C-Reactive Protein Albumin Urine Creatinine Ur Creatinine 24 Hour Crossmatch 03/13/18 06:30 WBC RBC Hgb Hct MCV MCHC RDW Lymph % (Auto) Lymph # Seg Neutrophils % Seg Neuts % (Manual) Lymphocytes % (Manual) Monocytes % (Manual) Nucleated RBC % Seg Neutrophils # Seg Neutrophils # Man Lymphocytes # (Manual) Monocytes # (Manual) PT INR POC ABG pH POC ABG pCO2 POC ABG pO2 Sodium 136 L Potassium Chloride 91.8 L Carbon Dioxide BUN 76 H Creatinine 4.1 H Glucose POC Glucose Lactic Acid Calcium 8.0 L Phosphorus Magnesium Total Bilirubin AST C-Reactive Protein Albumin Urine Creatinine Ur Creatinine 24 Hour Crossmatch Allied health notes reviewed: RT
--- NOTE | 2018-03-13 12:08 | Progress Note ---
Assessment and Plan Assessment: 1) Severe sepsis with septic shock: resolved; source pneumonia 2) Complicated Multilobar pneumonia: due to MRSA and GAS -CT chest 03/05 josh lower lobes consolidations, no abscesses -S/P penicillin G and Clindamycin IV 10 days 3) Acute respiratory failure: on the vent 4) Acute encephalopathy 5) DIANNA - better 6) History of CVA 7) S/p cardiac arrest 8) New CVA - right MCA territory 9) Severe anemia? Plan: -stop zyvox IV D101/23 -contact isolation I am signing off Thanks Mimi Lay MD Subjective Date of service: 03/13/18 Principal diagnosis: Acute Hypoxemic Resp Failure; Severe Sepsis; Aspiration Pneumonai (HCAP) Interval history: Remains on the vent, alert, off pressors, no fever Micro: Blood cx 02/26 neg Blood cx 03/04 neg Urine cx 02/26 neg Tracheal asp 02/26 MRSA and GAS x 2 Current Abx: zyvox 02/28 Previous Abx: zosyn vanco clinda 03/01-03/10 pen G 03/01-03/10 Objective - Exam Narrative Exam: Sedated eyes open on the vent NC/AT, ASH, OP with ETT, OGT Neck no LNs Lungs josh scattered rhonchi CV tachycardic Abd soft distended Ext +josh leg edema Neuro sedated Skin no rash Lines: left SC perm cath - Constitutional Vitals: Vital Signs Temp Pulse Resp BP Pulse Ox 98.5 F 117 H 12 118/54 99 03/13/18 08:00 03/13/18 11:32 03/13/18 11:00 03/13/18 11:32 03/13/18 11:32 Temperature -Last 24 Hours Temperature 98.5 F Temperature 97.5 F Temperature 97.5 F Temperature 98.8 F Temperature 98.8 F Temperature 98.9 F Temperature 98.6 F - Labs CBC & Chem 7: 03/12/18 05:45 03/13/18 06:30 Labs: Abnormal lab results 03/13/18 Range/Units 06:30 Sodium 136 L (137-145) mmol/L Chloride 91.8 L (98-107) mmol/L BUN 76 H (9-20) mg/dL Creatinine 4.1 H (0.8-1.5) mg/dL Calcium 8.0 L (8.4-10.2) mg/dL
[2018-03-13] MEDS ORDERED: NACL 0.9% 250ML 250 ML IV ONE (20:09)
[2018-03-13] MEDS: LOPRESSOR IV PRN (20:18)
[2018-03-13] MEDS ORDERED: Vasostrict IV SCH (21:00)
[2018-03-14] MEDS: KEPPRA FEEDTUBE SCH ×2 (06:17→17:58)
[2018-03-14 06:18] LABS: Calcium 7.9 mg/dL (8.4-10.2)
[2018-03-14] MEDS: SODIUM CHLORIDE FLUSH SYRINGE 10 ML IV SCH ×3 (06:19→22:00)
[2018-03-14] MEDS: HumuLIN R SUB-Q SCH ×3 (06:19→19:22)
[2018-03-14] MEDS: LOPRESSOR IV PRN (07:50)
[2018-03-14] MEDS: DUONEB *Not for PRN Use IH SCH ×3 (08:33→23:17)
[2018-03-14 08:50] LABS: Hematocrit 24.2 % (35.5-45.6); Hemoglobin 7.9 gm/dl (11.8-15.2); Mean Corpuscular HGB Conc 33 % (32-34); Mean Corpuscular Hemoglobin 31 pg (28-32); Mean Corpuscular Volume 94 fl (84-94); Platelet Count 148 K/mm3 (140-440); Red Blood Count 2.58 M/mm3 (3.65-5.03)
--- NOTE | 2018-03-14 09:08 | Event Note ---
Date: 03/14/18 I came to see patient at 730am. The patient still has tube feeds running. There was an order to nursing placed yesterday to hold the TF at midnight last night, however this was not done. The procedure will need to be cancelled today and scheduled for a late date. I notified the patient's son ABBEY Swanson [phone].
--- NOTE | 2018-03-14 09:53 | Progress Note ---
Assessment and Plan Assessment and plan: 72-year-old male with history of cerebrovascular accident and hemiplegia, Alzheimer's and nonverbal from [facility] sent for altered mental state. Since yesterday and high fever and increasing shortness of breath and respiratory distress. Patient's temperature was 103.2F in the initial evaluation in the emergency room. Patient was also severely tachypneic with respiratory rate of 40. Sudden onset. No exacerbating or relieving factors. Patient is a resident of assisted facility. 03/03: Went into cardiopulmonary arrest. Resuscitated according to ACLS protocol and commenced on IV Levophed for hypotension 03/05: Pt had recurrent seizure over the night and CT head showed right MCA acute /subacute stroke and calcified meningioma in the left frontal area 03/12: commence on renal replacemtn therapy 03/11 --Acute hypoxic respiratory failure; vent dependent Schedule for tracheostomy today, canceled as patient was not NPO ventilatory support, nebulizers, pulmonary following --Severe sepsis with septic shock;Resolved, --Acute kidney injury; secondary to ATN On hemodialysis, nephrology following, HD per schedule --Metabolic encephalopathy; multifactorial supportive care --Status post cardiac arrest/anoxic encephalopathy Continue supportive care, poor prognosis --Acute/ Subacute right MCA distribution stroke Supportive care --Meningioma left frontal area 2.8 x 2.2cm Prophylactic seizure medications with Keppra --Sacral Pressure ulcer Continue wound care --History of BPH Continue Finasteride --Hyperlipidemia; statin --Anemia of chronic disease; Closely monitor transfuse as needed --DVT prophylaxis; heparin renal dose Poor prognosis The high probability of a clinically significant, sudden or life threatening deterioration of the [neurological , adrenal metabolic and PULMONARY] system(s) required my full and direct attention, intervention and personal management. The aggregate critical care time was [32] minutes. This time is in addition to time spent performing reported procedures but includes the following: [X] Data Review and interpretation [X] Patient assessment and monitoring of vital signs [X] Documentation [X] Medication orders and management History Interval history: Since seen and examined medical records reviewed, Patient's son is at the bedside Had an episode of SVT in the morning, significantly improved heart rate ranges in the 100 210 Remains intubated on ventilatory support Initially scheduled for tracheostomy, patient was not placed on nothing by mouth Tracheostomy rescheduled per surgery\ Vital signs reviewed Hospitalist Physical - Constitutional Vitals: Temp Pulse Resp BP Pulse Ox 99.5 F 113 H 20 113/66 96 03/14/18 08:00 03/14/18 09:12 03/14/18 09:12 03/14/18 09:00 03/14/18 09:00 General appearance: Present: no acute distress, well-nourished, other ( intubated on vent and sedated) - EENT Eyes: Present: PERRL, EOM intact - Neck Neck: Present: supple - Respiratory Respiratory effort: normal Respiratory: bilateral: diminished, rhonchi, negative: rales, wheezing - Cardiovascular Rhythm: regular Heart Sounds: Present: S1 & S2 - Extremities Extremity abnormal: edema - Abdominal General gastrointestinal: soft, non-tender, non-distended, normal bowel sounds, other (PEG tube in place) - Integumentary Integumentary: Present: clear, warm - Psychiatric Psychiatric: other (noncommunicative) - Neurologic Neurologic: other (intubated and sedated) Results - Labs CBC & Chem 7: 03/14/18 08:30 03/14/18 05:30 Labs: Laboratory Last Values WBC 9.3 K/mm3 (4.5-11.0) 03/14/18 08:30 RBC 2.58 M/mm3 (3.65-5.03) L 03/14/18 08:30 Hgb 7.9 gm/dl (11.8-15.2) L 03/14/18 08:30 Hct 24.2 % (35.5-45.6) L 03/14/18 08:30 MCV 94 fl (84-94) 03/14/18 08:30 MCH 31 pg (28-32) 03/14/18 08:30 MCHC 33 % (32-34) 03/14/18 08:30 RDW 16.0 % (13.2-15.2) H 03/14/18 08:30 Plt Count 148 K/mm3 (140-440) 03/14/18 08:30 Lymph % (Auto) 4.6 % (13.4-35.0) L 03/10/18 06:55 [place] % (Auto) 3.1 % (0.0-7.3) 03/10/18 06:55 Eos % (Auto) 1.9 % (0.0-4.3) 03/10/18 06:55 Baso % (Auto) 0.4 % (0.0-1.8) 03/10/18 06:55 Lymph # 0.5 K/mm3 (1.2-5.4) L 03/10/18 06:55 [place] # 0.3 K/mm3 (0.0-0.8) 03/10/18 06:55 Eos # 0.2 K/mm3 (0.0-0.4) 03/10/18 06:55 Baso # 0.0 K/mm3 (0.0-0.1) 03/10/18 06:55 Add Manual Diff Complete 03/08/18 04:30 Total Counted 100 03/08/18 04:30 Seg Neutrophils % 90.0 % (40.0-70.0) H 03/10/18 06:55 Seg Neuts % (Manual) 91.0 % (40.0-70.0) H 03/08/18 04:30 Band Neutrophils % 1.0 % 03/08/18 04:30 Lymphocytes % (Manual) 2.0 % (13.4-35.0) L 03/08/18 04:30 Reactive Lymphs % (Man) 0 % 03/08/18 04:30 Monocytes % (Manual) 4.0 % (0.0-7.3) 03/08/18 04:30 Eosinophils % (Manual) 0 % (0.0-4.3) 03/08/18 04:30 Basophils % (Manual) 1.0 % (0.0-1.8) 03/08/18 04:30 Metamyelocytes % 0 % 03/08/18 04:30 Myelocytes % 1.0 % 03/08/18 04:30 Promyelocytes % 0 % 03/08/18 04:30 Blast Cells % 0 % 03/08/18 04:30 Nucleated RBC % Not Reportable 03/08/18 04:30 Seg Neutrophils # 9.1 K/mm3 (1.8-7.7) H 03/10/18 06:55 Seg Neutrophils # Man 12.6 K/mm3 (1.8-7.7) H 03/08/18 04:30 Band Neutrophils # 0.1 K/mm3 03/08/18 04:30 Lymphocytes # (Manual) 0.3 K/mm3 (1.2-5.4) L 03/08/18 04:30 Abs React Lymphs (Man) 0.0 K/mm3 03/08/18 04:30 Monocytes # (Manual) 0.6 K/mm3 (0.0-0.8) 03/08/18 04:30 Eosinophils # (Manual) 0.0 K/mm3 (0.0-0.4) 03/08/18 04:30 Basophils # (Manual) 0.1 K/mm3 (0.0-0.1) 03/08/18 04:30 Metamyelocytes # 0.0 K/mm3 03/08/18 04:30 Myelocytes # 0.1 K/mm3 03/08/18 04:30 Promyelocytes # 0.0 K/mm3 03/08/18 04:30 Blast Cells # 0.0 K/mm3 03/08/18 04:30 WBC Morphology Not Reportable 03/08/18 04:30 Hypersegmented Neuts Not Reportable 03/08/18 04:30 Hyposegmented Neuts Not Reportable 03/08/18 04:30 Hypogranular Neuts Not Reportable 03/08/18 04:30 Smudge Cells Not Reportable 03/08/18 04:30 Toxic Granulation Not Reportable 03/08/18 04:30 Toxic Vacuolation Not Reportable 03/08/18 04:30 Dohle Bodies Not Reportable 03/08/18 04:30 Pelger-Huet Anomaly Not Reportable 03/08/18 04:30 Erwin Rods Not Reportable 03/08/18 04:30 Platelet Estimate Consistent w auto 03/08/18 04:30 Clumped Platelets Not Reportable 03/08/18 04:30 Plt Clumps, EDTA Not Reportable 03/08/18 04:30 Large Platelets Not Reportable 03/08/18 04:30 Giant Platelets Not Reportable 03/08/18 04:30 Platelet Satelliting Not Reportable 03/08/18 04:30 Plt Morphology Comment Not Reportable 03/08/18 04:30 RBC Morphology Not Reportable 03/08/18 04:30 Dimorphic RBCs Not Reportable 03/08/18 04:30 Polychromasia Not Reportable 03/08/18 04:30 Hypochromasia Not Reportable 03/08/18 04:30 Poikilocytosis Not Reportable 03/08/18 04:30 Anisocytosis Not Reportable 03/08/18 04:30 Microcytosis Not Reportable 03/08/18 04:30 Macrocytosis Not Reportable 03/08/18 04:30 Spherocytes Not Reportable 03/08/18 04:30 Pappenheimer Bodies Not Reportable 03/08/18 04:30 Sickle Cells Not Reportable 03/08/18 04:30 Target Cells 1+ 03/08/18 04:30 Tear Drop Cells Not Reportable 03/08/18 04:30 Ovalocytes Not Reportable 03/08/18 04:30 Stomatocytes Few 02/28/18 09:00 Helmet Cells Not Reportable 03/08/18 04:30 [place] Bodies Not Reportable 03/08/18 04:30 Roca Rings Not Reportable 03/08/18 04:30 Lyle Cells Not Reportable 03/08/18 04:30 Bite Cells Not Reportable 03/08/18 04:30 Crenated Cell Not Reportable 03/08/18 04:30 Elliptocytes Not Reportable 03/08/18 04:30 Acanthocytes (Spur) Not Reportable 03/08/18 04:30 Rouleaux Not Reportable 03/08/18 04:30 Hemoglobin C Crystals Not Reportable 03/08/18 04:30 Schistocytes Not Reportable 03/08/18 04:30 Malaria parasites Not Reportable 03/08/18 04:30 Aric Bodies Not Reportable 03/08/18 04:30 Hem Pathologist Commnt No 03/08/18 04:30 PT 21.5 Sec. (12.2-14.9) H 02/26/18 20:50 INR 1.75 (0.87-1.13) H 02/26/18 20:50 POC ABG pH 7.287 (7.35-7.45) L 03/13/18 12:38 POC ABG pCO2 54.6 (35-45) H 03/13/18 12:38 POC ABG pO2 78 (80-105) L 03/13/18 12:38 POC ABG HCO3 26.1 03/13/18 12:38 POC ABG Total CO2 28 03/13/18 12:38 POC ABG O2 Sat 93 03/13/18 12:38 POC ABG Base Excess -1 03/13/18 12:38 VBG pH 7.406 (7.320-7.420) 02/25/18 23:15 FiO2 55 % 03/13/18 12:38 Sodium 135 mmol/L (137-145) L 03/14/18 05:30 Potassium 4.2 mmol/L (3.6-5.0) 03/14/18 05:30 Chloride 87.4 mmol/L (98-107) L 03/14/18 05:30 Carbon Dioxide 27 mmol/L (22-30) 03/14/18 05:30 Anion Gap 17 mmol/L 03/14/18 05:30 BUN 60 mg/dL (9-20) H 03/14/18 05:30 Creatinine 3.7 mg/dL (0.8-1.5) H 03/14/18 05:30 Estimated GFR 20 ml/min 03/14/18 05:30 BUN/Creatinine Ratio 16 % 03/14/18 05:30 Glucose 102 mg/dL (75-100) H 03/14/18 05:30 POC Glucose 100 (70-105) 03/14/18 05:50 Lactic Acid 3.10 mmol/L (0.7-2.0) H* 02/28/18 07:04 Calcium 7.9 mg/dL (8.4-10.2) L 03/14/18 05:30 Phosphorus 5.10 mg/dL (2.5-4.5) H 03/03/18 04:30 Magnesium 1.60 mg/dL (1.7-2.3) L 03/14/18 05:30 Total Bilirubin 4.50 mg/dL (0.1-1.2) H 02/26/18 07:39 AST 105 units/L (5-40) H 02/26/18 07:39 ALT 48 units/L (7-56) 02/26/18 07:39 Alkaline Phosphatase 109 units/L (35-129) 02/26/18 07:39 C-Reactive Protein 19.80 mg/dL (0.00-1.30) H 03/04/18 05:30 Total Protein 6.4 g/dL (6.3-8.2) 02/26/18 07:39 Albumin 2.4 g/dL (3.9-5) L 02/26/18 07:39 Albumin/Globulin Ratio 0.6 % 02/26/18 07:39 Lipase 35 units/L (13-60) 02/26/18 02:58 TSH 2.670 mlU/mL (0.270-4.200) 02/26/18 00:10 Free T4 1.26 ng/dL (0.76-1.46) 02/26/18 00:10 Urine Color [place] (Yellow) 02/26/18 00:32 Urine Turbidity Hazy (Clear) 02/26/18 00:32 Urine pH 5.0 (5.0-7.0) 02/26/18 00:32 Ur Specific [place] 1.015 (1.003-1.030) 02/26/18 00:32 Urine Protein <15 mg/dl mg/dL (Negative) 02/26/18 00:32 Urine Glucose (UA) Neg mg/dL (Negative) 02/26/18 00:32 Urine Ketones Neg mg/dL (Negative) 02/26/18 00:32 Urine Blood Neg (Negative) 02/26/18 00:32 Urine Nitrite Neg (Negative) 02/26/18 00:32 Urine Bilirubin Neg (Negative) 02/26/18 00:32 Urine Urobilinogen 4.0 mg/dL (<2.0) 02/26/18 00:32 Ur Leukocyte Esterase Neg (Negative) 02/26/18 00:32 Urine WBC (Auto) 1.0 /HPF (0.0-6.0) 02/26/18 00:32 Urine RBC (Auto) 1.0 /HPF (0.0-6.0) 02/26/18 00:32 U Epithel Cells (Auto) 1.0 /HPF (0-13.0) 02/26/18 00:32 Amorphous Crystals 3+ 02/26/18 00:32 Hyaline Casts 4 /LPF 02/26/18 00:32 Urine Mucus Few /HPF 02/26/18 00:32 Urine Total Volume 490 03/09/18 17:38 Urine Creatinine 69.2 mg/dL (0.1-20.0) H 03/09/18 17:38 Ur Creatinine 24 Hour 0.3 (0.8-2.8) L 03/09/18 13:30 Height (in) 67.0 inches 03/09/18 17:38 Weight (lb) 159.0 lbs 03/09/18 17:38 Creatinine Clearance 7 03/09/18 17:38 Urine Sodium 67 mmol/L 02/26/18 13:08 Hep Bs Antigen Non-reactive (Negative) 03/11/18 14:25 Hepatitis C Antibody Non-reactive (NonReactive) 03/11/18 14:44 Blood Type A POSITIVE 03/10/18 09:00 Antibody Screen Negative 03/10/18 09:00 Crossmatch See Detail 03/10/18 09:00
--- NOTE | 2018-03-14 10:16 | Progress Note ---
Assessment and Plan - Patient Problems (1) Acute on chronic renal failure Current Visit: Yes Status: Acute Qualifiers: Acute renal failure type: unspecified Chronic kidney disease stage: unspecified stage Qualified Code(s): N17.9 - Acute kidney failure, unspecified ; N18.9 - Chronic kidney disease, unspecified Plan to address problem: DIANNA/ ATN-S/P cardiorespiratory arrest, Acute respiratory failure, Sepsis- multifactorial. Multiple comorbid conditions-poor prognosis. Monitor renal function/ urine output. ID notes reviewed. Adjust meds per renal function. Continue supportive care (2) Acute hypoxemic respiratory failure Current Visit: Yes Status: Acute (3) Pneumonia Current Visit: Yes Status: Acute Qualifiers: Pneumonia type: due to unspecified organism Laterality: left Lung location: lower lobe of lung Qualified Code(s): J18.1 - Lobar pneumonia, unspecified organism (4) Sepsis Current Visit: Yes Status: Acute Qualifiers: Sepsis type: sepsis due to unspecified organism Qualified Code(s): A41.9 - Sepsis, unspecified organism (5) Acute CVA (cerebrovascular accident) Current Visit: No Status: Acute (6) Acute encephalopathy Current Visit: No Status: Acute Subjective Date of service: 03/14/18 Principal diagnosis: Acute Hypoxemic Resp Failure; Severe Sepsis; Aspiration Pneumonai (HCAP) Interval history: pt is orally intubated, on ventilator, Fio2- 50%, sedated. Chart was reviewed, spoke with pt's nurse. clinical condition same Objective - Vital Signs Vital signs: Vital Signs - 12hr 03/13/18 03/13/18 03/13/18 23:00 23:17 23:40 Temperature 99.0 F Pulse Rate 106 H 108 H Pulse Rate [ Anterior Bilateral Throughout] Pulse Rate [ From Monitor] Respiratory 20 Rate Respiratory Rate [Anterior Bilateral Throughout] Blood Pressure 103/59 103/59 O2 Sat by Pulse 100 100 Oximetry 03/14/18 03/14/18 03/14/18 00:00 01:00 02:00 Temperature Pulse Rate 106 H 108 H 108 H Pulse Rate [ 111 H Anterior Bilateral Throughout] Pulse Rate [ From Monitor] Respiratory 20 20 20 Rate Respiratory 18 Rate [Anterior Bilateral Throughout] Blood Pressure 98/62 96/52 95/55 O2 Sat by Pulse 100 97 95 Oximetry 03/14/18 03/14/18 03/14/18 03:00 03:39 03:58 Temperature 99.2 F Pulse Rate 108 H 113 H Pulse Rate [ Anterior Bilateral Throughout] Pulse Rate [ From Monitor] Respiratory 17 Rate Respiratory Rate [Anterior Bilateral Throughout] Blood Pressure 117/60 109/63 O2 Sat by Pulse 96 99 Oximetry 03/14/18 03/14/18 03/14/18 04:00 05:00 06:01 Temperature Pulse Rate 114 H 113 H 137 H Pulse Rate [ Anterior Bilateral Throughout] Pulse Rate [ 129 H From Monitor] Respiratory 16 18 21 Rate Respiratory Rate [Anterior Bilateral Throughout] Blood Pressure 107/52 119/62 108/72 O2 Sat by Pulse 96 94 92 Oximetry 03/14/18 03/14/18 03/14/18 07:00 08:00 08:30 Temperature 99.5 F Pulse Rate 121 H 104 H 120 H Pulse Rate [ Anterior Bilateral Throughout] Pulse Rate [ 110 H From Monitor] Respiratory 16 20 Rate Respiratory Rate [Anterior Bilateral Throughout] Blood Pressure 109/74 102/63 116/99 O2 Sat by Pulse 99 94 97 Oximetry 03/14/18 03/14/18 03/14/18 08:33 09:00 09:12 Temperature Pulse Rate 112 H Pulse Rate [ 114 H 113 H Anterior Bilateral Throughout] Pulse Rate [ From Monitor] Respiratory 20 Rate Respiratory 22 20 Rate [Anterior Bilateral Throughout] Blood Pressure 113/66 O2 Sat by Pulse 96 Oximetry - General Appearance General appearance: chronically ill, sedated on ventilator EENT: mucous membranes dry Neck: no JVD Respiratory: Present: Decreased Breath Sounds Cardiology: regular, tachycardia Gastrointestinal: normoactive bowel sounds Musculoskeletal: other (left IJ vas cath in place) - Lab 03/14/18 08:30 03/14/18 05:30 Most recent lab results Calcium 7.9 mg/dL (8.4-10.2) L 03/14/18 05:30 Phosphorus 5.10 mg/dL (2.5-4.5) H 03/03/18 04:30 Magnesium 1.60 mg/dL (1.7-2.3) L 03/14/18 05:30 Urine Creatinine 69.2 mg/dL (0.1-20.0) H 03/09/18 17:38 Urine Sodium 67 mmol/L 02/26/18 13:08
[2018-03-14] MEDS: PEPCID PO SCH (11:00)
[2018-03-14] MEDS: BABY ASPIRIN PO SCH (11:10)
[2018-03-14] MEDS: HEPARIN SUB-Q SCH ×2 (11:15→21:56)
--- NOTE | 2018-03-14 12:09 | Consultation ---
History of Present Illness Consult date: 03/14/18 Requesting physician: CAROLYN DAILY Consult reason: atrial fibrillation History of present illness: The patient is nonverbal. The history was obtained from chart review. He has a h /o CVA with hemiplegia. He was admitted from a SNF with fever, tachypnea and intubated for acute respiratory failure. He also developed septic shock which has currently resolved. In addition, there was evidence of acute on CKD. Last night, he went into rapid Afib. Echo reported an EF of 60-65%. Past History Past Medical History: hypertension, hyperlipidemia, stroke (with left hemiplegia ) Past Surgical History: Other (PEG tube) Social history: other (lives at [facility]) Family history: no significant family history Medications and Allergies Allergies Allergy/AdvReac Type Severity Reaction Status Date / Time No Known Allergies Allergy Verified 12/26/14 12:14 Home Medications Medication Instructions Recorded Confirmed Last Taken Type Amlodipine Besylate [Norvasc] 10 mg PO DAILY 12/27/17 02/26/18 Unknown History Finasteride [Proscar] 5 mg PO DAILY 12/27/17 02/26/18 Unknown History HYDROcodone/ACETAMINOPHEN [Leon 1 each PO Q6H PRN #10 tablet 01/04/18 02/26/18 Unknown Rx 5-325 Tablet] Metoprolol [Lopressor TAB] 25 mg PO BID #60 tablet 01/04/18 02/26/18 Unknown Rx hydrALAZINE [Apresoline TAB] 50 mg PO Q8HR #30 tablet 01/04/18 02/26/18 Unknown Rx Acetaminophen 650 mg PO Q6H PRN 02/26/18 02/26/18 Unknown History Apixaban [Eliquis] 2.5 mg PO BID 02/26/18 02/26/18 Unknown History Omeprazole Magnesium [PriLOSEC Otc] 20 mg PO QDAY 02/26/18 02/26/18 Unknown History Torsemide [Demadex] 10 mg PO QDAY 02/26/18 02/26/18 Unknown History Active Meds: Active Medications Acetaminophen (Tylenol) 650 mg MO Q6H PRN PRN Reason: Pain MILD(1-3)/Fever >100.5/GALVIN Acetaminophen (Tylenol) 650 mg FEEDTUBE Q6H PRN PRN Reason: Pain MILD(1-3)/Fever >100.5/GALVIN Last Admin: 03/01/18 10:02 Dose: 650 mg Albuterol/Ipratropium (Duoneb *Not For Prn Use*) 1 ampul IH Q8HRT [facility] Last Admin: 03/14/18 08:33 Dose: 1 ampul Lipase/Protease/Amylase (Pancreaze Dr 10,500 Unit) 1 each FEEDTUBE PRN PRN PRN Reason: For Clogged Feeding Tube Aspirin (Baby Aspirin) 81 mg PO QDAY [facility] Last Admin: 03/13/18 09:47 Dose: 81 mg Atorvastatin Calcium (Lipitor) 20 mg PO QHS [facility] Last Admin: 03/13/18 23:41 Dose: 20 mg Dextrose (D50w (25gm) Syringe) 50 ml IV PRN PRN PRN Reason: Hypoglycemia Famotidine (Pepcid) 20 mg PO DAILY [facility] Last Admin: 03/13/18 09:47 Dose: 20 mg Heparin Sodium (Porcine) (Heparin) 5,000 unit SUB-Q Q12HR [facility] Last Admin: 03/13/18 23:42 Dose: 5,000 unit Heparin Sodium (Porcine) (Heparin) 5,000 unit IV TARIQ PRN PRN Reason: hemodialysis Hydrophilic Ointment (Vaseline Lip Therapy) 1 applic TP Q2HR PRN PRN Reason: Dry Lips Last Admin: 02/26/18 16:05 Dose: 1 applic Fentanyl Citrate (Fentanyl Drip Premix) 2,000 mcg in 100 mls @ 3.402 mls/hr IV TITR [facility]; Protocol Last Admin: 03/13/18 23:42 Dose: 2 mcg/kg/hr, 6.804 mls/hr Propofol (Diprivan 10 Mg/Ml) 1,000 mg in 100 mls @ 2.041 mls/hr IV TITR [facility]; Protocol Norepinephrine (Levophed Drip 4 Mg/Ns 250 Ml) 4 mg in 250 mls @ 7.5 mls/hr IV TITR [facility]; Protocol Last Titration: 03/07/18 15:30 Dose: 0 mcg/min, 0 mls/hr Sodium Chloride (Nacl 0.9%) 100 mls @ 999 mls/hr IV TARIQ PRN PRN Reason: Hypotension Sodium Chloride (Nacl 0.9%) 100 mls @ 999 mls/hr IV TARIQ PRN PRN Reason: Hypotension Vasopressin 20 unit/ Sodium (Chloride) 101 mls @ 9.09 mls/hr IV TITR DERREK Insulin Human Regular (Humulin R) 0 units SUB-Q Q6HR [facility]; Protocol Last Admin: 03/14/18 06:19 Dose: Not Given Levetiracetam (Keppra) 500 mg FEEDTUBE Q12H [facility] Last Admin: 03/14/18 06:17 Dose: 500 mg Lorazepam (Ativan) 1 mg IV Q4H PRN PRN Reason: Seizures Last Admin: 03/05/18 02:59 Dose: 1 mg Metoprolol Tartrate (Lopressor) 5 mg IV Q6HR PRN PRN Reason: HR > 135 Last Admin: 03/13/18 20:18 Dose: 5 mg Morphine Sulfate (Morphine) 2 mg IV Q4H PRN PRN Reason: Pain, Moderate (4-6) Last Admin: 03/07/18 19:54 Dose: 2 mg Multi-Ingred Cream/Lotion/Oil/Oint (Artificial Tears Ophth Oint) 1 applic OU Q4HR PRN PRN Reason: Dry Eye(s) Last Admin: 02/26/18 14:48 Dose: 1 applic Promethazine HCl (Phenergan) 25 mg MO Q6H PRN PRN Reason: N/V IF NPO AND NO IV ACCESS Quetiapine Fumarate (Seroquel) 100 mg PO BID [facility] Last Admin: 03/13/18 23:41 Dose: 100 mg Simple Syrup (Simple Syrup) 15 ml FEEDTUBE PRN PRN PRN Reason: Hypoglycemia Simple Syrup (Simple Syrup) 30 ml FEEDTUBE PRN PRN PRN Reason: Hypoglycemia Sodium Bicarbonate (Sodium Bicarbonate) 325 mg FEEDTUBE PRN PRN PRN Reason: For Clogged Feeding Tube Sodium Chloride (Sodium Chloride Flush Syringe 10 Ml) 10 ml IV BID [facility] Last Admin: 03/14/18 06:19 Dose: 10 ml Sodium Chloride (Sodium Chloride Flush Syringe 10 Ml) 10 ml IV PRN PRN PRN Reason: LINE FLUSH Last Admin: 03/02/18 01:15 Dose: 10 ml Sodium Chloride (Nacl 0.9% 500 Ml) 1 ml IV DIRECT DERREK Review of Systems ROS unobtainable: due to endotracheal tube, due to mental status Physical Examination Vital Signs Last Vital Signs Temp 99.5 F 03/14/18 08:00 Pulse 115 H 03/14/18 11:35 Resp 20 03/14/18 09:12 BP 114/55 03/14/18 11:35 Pulse Ox 98 03/14/18 11:35 General appearance: no acute distress HEENT: Positive: EOMI, Normocephaly, Mucus Membranes Moist Neck: Positive: neck supple, trachea midline Cardiac: Positive: irregularly irregular, S1/S2 Lungs: Positive: Wheezes, Rhonchi Neuro: Positive: Other (nonverbal, left hemiplegia) Abdomen: Positive: Soft, Active Bowel Sounds. Negative: Tender Skin: Positive: Clear. Negative: Rash Musculoskeletal: Decreased Range of Motion Extremities: Present: +1 Edema (bilaterally) Results 03/14/18 08:30 03/14/18 05:30 CBC 03/14/18 Range/Units 08:30 WBC 9.3 (4.5-11.0) K/mm3 RBC 2.58 L (3.65-5.03) M/mm3 Hgb 7.9 L (11.8-15.2) gm/dl Hct 24.2 L (35.5-45.6) % Plt Count 148 (140-440) K/mm3 Comprehensive Metabolic Panel 03/14/18 Range/Units 05:30 Sodium 135 L (137-145) mmol/L Potassium 4.2 (3.6-5.0) mmol/L Chloride 87.4 L (98-107) mmol/L Carbon Dioxide 27 (22-30) mmol/L BUN 60 H (9-20) mg/dL Creatinine 3.7 H (0.8-1.5) mg/dL Glucose 102 H (75-100) mg/dL Calcium 7.9 L (8.4-10.2) mg/dL - Imaging and Cardiology EKG: image reviewed EKG interpretations - Telemetry EKG Rhythm: Atrial Fibrillation (with RVR) - EKG Supraventricular dysrhythmia: atrial fibrillation (with RVR) Assessment and Plan Due to low NL BPs, will use IV Amiodarone for his Afib for now (Awaiting Trach) . With severe anemia, will be hesitant about full anticoagulation. - Patient Problems (1) Atrial fibrillation with RVR Current Visit: Yes Status: Acute (2) New onset atrial fibrillation Current Visit: Yes Status: Acute (3) Acute hypoxemic respiratory failure Current Visit: Yes Status: Acute (4) Sepsis Current Visit: Yes Status: Acute Qualifiers: Sepsis type: sepsis due to unspecified organism Qualified Code(s): A41.9 - Sepsis, unspecified organism (5) Acute kidney injury superimposed on CKD Current Visit: Yes Status: Acute (6) Anemia Current Visit: Yes Status: Acute Qualifiers: Anemia type: unspecified type Qualified Code(s): D64.9 - Anemia, unspecified
--- NOTE | 2018-03-14 12:12 | Progress Note ---
Assessment and Plan Severe sepsis with septic shock. Aspiration pneumonia, healthcare associated. Acute on chronic encephalopathy. Acute on chronic kidney injury. Anemia. Hypernatremia. Metabolic acidosis. Lactic acidosis. History of hypertension. History of diabetes. History of Alzheimer dementia. - metoprolol 5 mg IV q6h prn ordered for RVR - cardiology evaluation ongoing - tracheostomy tentatively rescheduled for tuesday - get ABG and address as necessary - keep Peep at 7 cmH2O for now - repeat CXR in am +/- ? thoracentesis - tolerating HD/UF well so far - s/p LIJ vascath - continue bronchodilators with pulmonary hygiene per RT - continue to wean FiO2 for sats > 90% - continue addressing VAP bundle daily - begin vasopressin if MAP ,60mmHg re; tachycardia - strict I's & O's re: DIANNA and will leave shrestha catheter in place for now - further azotemia management per java websphere developer (input appreciated) - conservative volume management strategies at this point - continue to trend CRP and lactate prn - continue enteral nutrition as tolerated - continue mobility protocol for pressure ulcer prophylaxis - continue GI & VTE prophylaxis - continue antibiotics; on vancomycin for MRSA pneumonia and following other cultures - ID evaluation ongoing (de-escalate Anti-infective's per ID recs) - continue contact precautions re: 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 The aggregate critical care time was [35] minutes without overlap. Time includes spent on; [x] Data Review and interpretation [x] Patient assessment and monitoring of vital signs [x] Documentation [x] Medication orders and management Subjective Date of service: 03/14/18 Principal diagnosis: Acute Hypoxemic Resp Failure; Severe Sepsis; Aspiration Pneumonai (HCAP) Interval history: Patient is seen today for: Acute Hypoxemic Resp Failure; Severe Sepsis; Aspiration Pneumonai (HCAP) Seen and examined at bedside; 24hour events reviewed; nursing and respiratory care staff consulted; no adverse overnight events reported to me; remains on MVS ; trach procedure cancelled due to logistics; AMS is persistent; he remains hypoxemic Resquiring 55% FiO2 and Peep of 7 for 94% sats; no emesis or overt aspiration reported. Developed A-fib with RVR yesterday evening and to be seen by cardiology today Objective Vital Signs - 12hr 03/14/18 03/14/18 03/14/18 01:00 02:00 03:00 Temperature Pulse Rate 108 H 108 H 108 H Pulse Rate [ Anterior Bilateral Throughout] Pulse Rate [ From Monitor] Respiratory 20 20 17 Rate Respiratory Rate [Anterior Bilateral Throughout] Blood Pressure 96/52 95/55 117/60 O2 Sat by Pulse 97 95 96 Oximetry 03/14/18 03/14/18 03/14/18 03:39 03:58 04:00 Temperature 99.2 F Pulse Rate 113 H 114 H Pulse Rate [ Anterior Bilateral Throughout] Pulse Rate [ 129 H From Monitor] Respiratory 16 Rate Respiratory Rate [Anterior Bilateral Throughout] Blood Pressure 109/63 107/52 O2 Sat by Pulse 99 96 Oximetry 03/14/18 03/14/18 03/14/18 05:00 06:01 07:00 Temperature Pulse Rate 113 H 137 H 121 H Pulse Rate [ Anterior Bilateral Throughout] Pulse Rate [ From Monitor] Respiratory 18 21 16 Rate Respiratory Rate [Anterior Bilateral Throughout] Blood Pressure 119/62 108/72 109/74 O2 Sat by Pulse 94 92 99 Oximetry 03/14/18 03/14/18 03/14/18 08:00 08:30 08:33 Temperature 99.5 F Pulse Rate 104 H 120 H Pulse Rate [ 114 H Anterior Bilateral Throughout] Pulse Rate [ 110 H From Monitor] Respiratory 20 Rate Respiratory 22 Rate [Anterior Bilateral Throughout] Blood Pressure 102/63 116/99 O2 Sat by Pulse 94 97 Oximetry 03/14/18 03/14/18 03/14/18 09:00 09:12 11:35 Temperature Pulse Rate 112 H 115 H Pulse Rate [ 113 H Anterior Bilateral Throughout] Pulse Rate [ From Monitor] Respiratory 20 Rate Respiratory 20 Rate [Anterior Bilateral Throughout] Blood Pressure 113/66 114/55 O2 Sat by Pulse 96 98 Oximetry Constitutional: appears uncomfortable, other (elderly looking AAM, normocephalic and atraumativ on MVS with increased respiratory effort) Eyes: non-icteric ENT: oropharynx moist, other (ETT 24 cm TERESA) Neck: supple, no lymphadenopathy, no JVD, other (no thyromegaly) Effort: mildly labored Ascultation: Right: diminished breath sounds (base), Bilateral: rhonchi Percussion: Right: dull (base) Cardiovascular: irregular rhythm, other (No R/M, S1,S2) Gastrointestinal: normoactive bowel sounds, soft, non-tender, non-distended, other (+ PEG; No HSM, scrotal edema) Integumentary: other (poor turgor) Extremities: no cyanosis, pulses normal, no ischemia or petechiae, anasarca Neurologic: pupils equal and round, unable to assess Psychiatric: other (unable to assess re: encephalopathy) CBC and BMP: 03/14/18 08:30 03/14/18 05:30 ABG, PT/INR, D-dimer: ABG POC ABG pH 7.287 (7.35-7.45) L 03/13/18 12:38 POC ABG pCO2 54.6 (35-45) H 03/13/18 12:38 POC ABG pO2 78 (80-105) L 03/13/18 12:38 POC ABG HCO3 26.1 03/13/18 12:38 POC ABG Total CO2 28 03/13/18 12:38 POC ABG O2 Sat 93 03/13/18 12:38 PT/INR, D-dimer PT 21.5 Sec. (12.2-14.9) H 02/26/18 20:50 INR 1.75 (0.87-1.13) H 02/26/18 20:50 Abnormal lab findings: Abnormal Labs 02/25/18 02/25/18 02/25/18 23:15 23:15 23:15 WBC 12.3 H RBC 3.56 L Hgb 10.2 L Hct 33.7 L MCV 95 H MCHC 30 L RDW 17.7 H Lymph % (Auto) Lymph # Seg Neutrophils % Seg Neuts % (Manual) 35.0 L Lymphocytes % (Manual) 13.0 L Monocytes % (Manual) 8.0 H Nucleated RBC % Seg Neutrophils # Seg Neutrophils # Man Lymphocytes # (Manual) Monocytes # (Manual) 1.0 H PT 20.3 H INR 1.63 H POC ABG pH POC ABG pCO2 POC ABG pO2 Sodium 152 H Potassium Chloride 108.7 H Carbon Dioxide 18 L BUN 136 H Creatinine 5.2 H Glucose POC Glucose Lactic Acid Calcium 8.0 L Phosphorus Magnesium Total Bilirubin 4.50 H AST 83 H C-Reactive Protein Albumin 2.7 L Urine Creatinine Ur Creatinine 24 Hour Crossmatch 02/25/18 02/25/18 02/26/18 23:15 23:30 03:06 WBC RBC Hgb Hct MCV MCHC RDW Lymph % (Auto) Lymph # Seg Neutrophils % Seg Neuts % (Manual) Lymphocytes % (Manual) Monocytes % (Manual) Nucleated RBC % Seg Neutrophils # Seg Neutrophils # Man Lymphocytes # (Manual) Monocytes # (Manual) PT INR POC ABG pH POC ABG pCO2 25.2 L POC ABG pO2 69 L Sodium Potassium Chloride Carbon Dioxide BUN Creatinine Glucose POC Glucose Lactic Acid 7.00 H* 9.70 H* Calcium Phosphorus Magnesium Total Bilirubin AST C-Reactive Protein Albumin Urine Creatinine Ur Creatinine 24 Hour Crossmatch 02/26/18 02/26/18 02/26/18 05:12 05:43 07:39 WBC 23.7 H RBC 3.27 L Hgb 9.3 L Hct 31.1 L MCV 95 H MCHC 30 L RDW 17.4 H Lymph % (Auto) Lymph # Seg Neutrophils % Seg Neuts % (Manual) Lymphocytes % (Manual) 2.0 L Monocytes % (Manual) Nucleated RBC % 1.0 H Seg Neutrophils # Seg Neutrophils # Man 16.1 H Lymphocytes # (Manual) 0.5 L Monocytes # (Manual) 1.2 H PT INR POC ABG pH POC ABG pCO2 19.5 L POC ABG pO2 72 L Sodium Potassium Chloride Carbon Dioxide BUN Creatinine Glucose POC Glucose Lactic Acid 8.80 H* Calcium Phosphorus Magnesium Total Bilirubin AST C-Reactive Protein Albumin Urine Creatinine Ur Creatinine 24 Hour Crossmatch 02/26/18 02/26/18 02/26/18 07:39 12:06 13:08 WBC RBC Hgb Hct MCV MCHC RDW Lymph % (Auto) Lymph # Seg Neutrophils % Seg Neuts % (Manual) Lymphocytes % (Manual) Monocytes % (Manual) Nucleated RBC % Seg Neutrophils # Seg Neutrophils # Man Lymphocytes # (Manual) Monocytes # (Manual) PT INR POC ABG pH POC ABG pCO2 27.8 L POC ABG pO2 168 H Sodium 155 H Potassium Chloride 114.2 H Carbon Dioxide 14 L BUN 120 H Creatinine 4.6 H Glucose 108 H POC Glucose Lactic Acid Calcium 7.7 L Phosphorus Magnesium Total Bilirubin 4.50 H AST 105 H C-Reactive Protein Albumin 2.4 L Urine Creatinine 38.6 H Ur Creatinine 24 Hour Crossmatch 02/26/18 02/26/18 02/26/18 18:41 20:50 20:50 WBC RBC Hgb Hct MCV MCHC RDW Lymph % (Auto) Lymph # Seg Neutrophils % Seg Neuts % (Manual) Lymphocytes % (Manual) Monocytes % (Manual) Nucleated RBC % Seg Neutrophils # Seg Neutrophils # Man Lymphocytes # (Manual) Monocytes # (Manual) PT 21.5 H INR 1.75 H POC ABG pH POC ABG pCO2 POC ABG pO2 Sodium Potassium Chloride Carbon Dioxide BUN Creatinine Glucose POC Glucose 135 H Lactic Acid Calcium Phosphorus Magnesium Total Bilirubin AST C-Reactive Protein 33.90 H Albumin Urine Creatinine Ur Creatinine 24 Hour Crossmatch 02/27/18 02/27/18 02/27/18 03:39 04:56 04:56 WBC 20.1 H RBC 2.92 L Hgb 8.4 L Hct 27.5 L MCV MCHC 31 L RDW 17.1 H Lymph % (Auto) Lymph # Seg Neutrophils % Seg Neuts % (Manual) 92.0 H Lymphocytes % (Manual) 3.0 L Monocytes % (Manual) Nucleated RBC % Seg Neutrophils # Seg Neutrophils # Man 18.5 H Lymphocytes # (Manual) 0.6 L Monocytes # (Manual) PT INR POC ABG pH 7.453 H POC ABG pCO2 27.2 L POC ABG pO2 Sodium 149 H Potassium Chloride 113.1 H Carbon Dioxide 18 L BUN 103 H Creatinine 3.8 H Glucose 120 H POC Glucose Lactic Acid Calcium 7.8 L Phosphorus Magnesium Total Bilirubin AST C-Reactive Protein Albumin Urine Creatinine Ur Creatinine 24 Hour Crossmatch 02/27/18 02/27/18 02/27/18 12:37 12:45 17:51 WBC RBC Hgb Hct MCV MCHC RDW Lymph % (Auto) Lymph # Seg Neutrophils % Seg Neuts % (Manual) Lymphocytes % (Manual) Monocytes % (Manual) Nucleated RBC % Seg Neutrophils # Seg Neutrophils # Man Lymphocytes # (Manual) Monocytes # (Manual) PT INR POC ABG pH POC ABG pCO2 POC ABG pO2 Sodium Potassium Chloride Carbon Dioxide BUN Creatinine Glucose POC Glucose 169 H 133 H Lactic Acid 2.90 H* Calcium Phosphorus Magnesium Total Bilirubin AST C-Reactive Protein Albumin Urine Creatinine Ur Creatinine 24 Hour Crossmatch 02/28/18 02/28/18 02/28/18 00:23 05:00 05:02 WBC RBC Hgb Hct MCV MCHC RDW Lymph % (Auto) Lymph # Seg Neutrophils % Seg Neuts % (Manual) Lymphocytes % (Manual) Monocytes % (Manual) Nucleated RBC % Seg Neutrophils # Seg Neutrophils # Man Lymphocytes # (Manual) Monocytes # (Manual) PT INR POC ABG pH POC ABG pCO2 POC ABG pO2 Sodium Potassium Chloride Carbon Dioxide BUN Creatinine Glucose POC Glucose 161 H 116 H Lactic Acid 2.70 H* Calcium Phosphorus Magnesium Total Bilirubin AST C-Reactive Protein Albumin Urine Creatinine Ur Creatinine 24 Hour Crossmatch 02/28/18 02/28/18 02/28/18 05:28 07:04 09:00 WBC 22.3 H RBC 2.63 L Hgb 7.6 L Hct 24.1 L MCV MCHC 31 L RDW 17.4 H Lymph % (Auto) Lymph # Seg Neutrophils % Seg Neuts % (Manual) 84.0 H Lymphocytes % (Manual) 8.0 L Monocytes % (Manual) Nucleated RBC % Seg Neutrophils # Seg Neutrophils # Man 18.7 H Lymphocytes # (Manual) Monocytes # (Manual) 1.1 H PT INR POC ABG pH 7.477 H POC ABG pCO2 24.6 L POC ABG pO2 57 L Sodium Potassium Chloride Carbon Dioxide BUN Creatinine Glucose POC Glucose Lactic Acid 3.10 H* Calcium Phosphorus Magnesium Total Bilirubin AST C-Reactive Protein Albumin Urine Creatinine Ur Creatinine 24 Hour Crossmatch 02/28/18 02/28/18 02/28/18 09:00 11:36 17:10 WBC RBC Hgb Hct MCV MCHC RDW Lymph % (Auto) Lymph # Seg Neutrophils % Seg Neuts % (Manual) Lymphocytes % (Manual) Monocytes % (Manual) Nucleated RBC % Seg Neutrophils # Seg Neutrophils # Man Lymphocytes # (Manual) Monocytes # (Manual) PT INR POC ABG pH POC ABG pCO2 POC ABG pO2 Sodium Potassium 3.3 L 3.5 L Chloride Carbon Dioxide 21 L 19 L BUN 76 H 69 H Creatinine 2.8 H 2.5 H Glucose 104 H 124 H POC Glucose 107 H Lactic Acid Calcium 7.6 L 7.3 L Phosphorus 1.50 L Magnesium Total Bilirubin AST C-Reactive Protein Albumin Urine Creatinine Ur Creatinine 24 Hour Crossmatch 02/28/18 02/28/18 03/01/18 17:36 23:40 06:25 WBC RBC Hgb Hct MCV MCHC RDW Lymph % (Auto) Lymph # Seg Neutrophils % Seg Neuts % (Manual) Lymphocytes % (Manual) Monocytes % (Manual) Nucleated RBC % Seg Neutrophils # Seg Neutrophils # Man Lymphocytes # (Manual) Monocytes # (Manual) PT INR POC ABG pH 7.542 H POC ABG pCO2 23.3 L POC ABG pO2 62 L Sodium Potassium Chloride Carbon Dioxide BUN Creatinine Glucose POC Glucose 151 H 111 H Lactic Acid Calcium Phosphorus Magnesium Total Bilirubin AST C-Reactive Protein Albumin Urine Creatinine Ur Creatinine 24 Hour Crossmatch 03/01/18 03/01/18 03/02/18 10:00 12:12 05:21 WBC RBC Hgb Hct MCV MCHC RDW Lymph % (Auto) Lymph # Seg Neutrophils % Seg Neuts % (Manual) Lymphocytes % (Manual) Monocytes % (Manual) Nucleated RBC % Seg Neutrophils # Seg Neutrophils # Man Lymphocytes # (Manual) Monocytes # (Manual) PT INR POC ABG pH 7.473 H POC ABG pCO2 21.5 L POC ABG pO2 79 L Sodium Potassium 3.5 L Chloride Carbon Dioxide 18 L BUN 66 H Creatinine 2.8 H Glucose 103 H POC Glucose 176 H Lactic Acid Calcium 7.5 L Phosphorus Magnesium Total Bilirubin AST C-Reactive Protein Albumin Urine Creatinine Ur Creatinine 24 Hour Crossmatch 03/02/18 03/02/18 03/02/18 06:00 06:00 11:47 WBC 18.2 H RBC 2.43 L Hgb 7.2 L Hct 22.6 L MCV MCHC RDW 17.6 H Lymph % (Auto) Lymph # Seg Neutrophils % Seg Neuts % (Manual) Lymphocytes % (Manual) Monocytes % (Manual) Nucleated RBC % Seg Neutrophils # Seg Neutrophils # Man Lymphocytes # (Manual) Monocytes # (Manual) PT INR POC ABG pH POC ABG pCO2 POC ABG pO2 Sodium Potassium Chloride Carbon Dioxide 17 L BUN 68 H Creatinine 3.1 H Glucose 106 H POC Glucose 136 H Lactic Acid Calcium 7.2 L Phosphorus Magnesium Total Bilirubin AST C-Reactive Protein Albumin Urine Creatinine Ur Creatinine 24 Hour Crossmatch 03/02/18 03/03/18 03/03/18 17:35 00:54 03:38 WBC RBC Hgb Hct MCV MCHC RDW Lymph % (Auto) Lymph # Seg Neutrophils % Seg Neuts % (Manual) Lymphocytes % (Manual) Monocytes % (Manual) Nucleated RBC % Seg Neutrophils # Seg Neutrophils # Man Lymphocytes # (Manual) Monocytes # (Manual) PT INR POC ABG pH 7.451 H POC ABG pCO2 20.5 L POC ABG pO2 Sodium Potassium Chloride Carbon Dioxide BUN Creatinine Glucose POC Glucose 109 H 131 H Lactic Acid Calcium Phosphorus Magnesium Total Bilirubin AST C-Reactive Protein Albumin Urine Creatinine Ur Creatinine 24 Hour Crossmatch 03/03/18 03/03/18 03/03/18 04:30 06:15 06:15 WBC 21.1 H RBC 2.20 L Hgb 6.3 L Hct 20.8 L MCV 95 H MCHC 30 L RDW 17.8 H Lymph % (Auto) Lymph # Seg Neutrophils % Seg Neuts % (Manual) 71.0 H Lymphocytes % (Manual) 8.0 L Monocytes % (Manual) Nucleated RBC % Seg Neutrophils # Seg Neutrophils # Man 15.0 H Lymphocytes # (Manual) Monocytes # (Manual) 1.3 H PT INR POC ABG pH POC ABG pCO2 POC ABG pO2 Sodium 130 L D Potassium Chloride 96.4 L Carbon Dioxide 14 L BUN 69 H Creatinine 3.1 H Glucose POC Glucose Lactic Acid Calcium 7.0 L Phosphorus 5.10 H Magnesium Total Bilirubin AST C-Reactive Protein Albumin Urine Creatinine Ur Creatinine 24 Hour Crossmatch 03/03/18 03/03/18 03/03/18 08:37 09:38 12:13 WBC RBC Hgb Hct MCV MCHC RDW Lymph % (Auto) Lymph # Seg Neutrophils % Seg Neuts % (Manual) Lymphocytes % (Manual) Monocytes % (Manual) Nucleated RBC % Seg Neutrophils # Seg Neutrophils # Man Lymphocytes # (Manual) Monocytes # (Manual) PT INR POC ABG pH POC ABG pCO2 23.8 L POC ABG pO2 156 H Sodium Potassium Chloride Carbon Dioxide BUN Creatinine Glucose POC Glucose 119 H Lactic Acid Calcium Phosphorus Magnesium Total Bilirubin AST C-Reactive Protein Albumin Urine Creatinine Ur Creatinine 24 Hour Crossmatch See Detail 03/03/18 03/03/18 03/04/18 12:37 18:05 00:59 WBC RBC Hgb Hct MCV MCHC RDW Lymph % (Auto) Lymph # Seg Neutrophils % Seg Neuts % (Manual) Lymphocytes % (Manual) Monocytes % (Manual) Nucleated RBC % Seg Neutrophils # Seg Neutrophils # Man Lymphocytes # (Manual) Monocytes # (Manual) PT INR POC ABG pH POC ABG pCO2 POC ABG pO2 Sodium Potassium Chloride Carbon Dioxide BUN Creatinine Glucose POC Glucose 154 H 159 H Lactic Acid Calcium Phosphorus Magnesium 1.40 L Total Bilirubin AST C-Reactive Protein Albumin Urine Creatinine Ur Creatinine 24 Hour Crossmatch 03/04/18 03/04/18 03/04/18 04:27 05:30 05:30 WBC 22.6 H RBC 2.46 L Hgb 7.1 L Hct 21.7 L MCV MCHC RDW 17.2 H Lymph % (Auto) Lymph # Seg Neutrophils % Seg Neuts % (Manual) 84.0 H Lymphocytes % (Manual) 5.0 L Monocytes % (Manual) Nucleated RBC % Seg Neutrophils # Seg Neutrophils # Man 19.0 H Lymphocytes # (Manual) 1.1 L Monocytes # (Manual) PT INR POC ABG pH 7.486 H POC ABG pCO2 24.8 L POC ABG pO2 Sodium 135 L Potassium Chloride 96.2 L Carbon Dioxide 19 L BUN 69 H Creatinine 3.1 H Glucose 121 H POC Glucose Lactic Acid Calcium 7.1 L Phosphorus Magnesium Total Bilirubin AST C-Reactive Protein 19.80 H Albumin Urine Creatinine Ur Creatinine 24 Hour Crossmatch 03/04/18 03/04/18 03/04/18 05:38 11:47 17:53 WBC RBC Hgb Hct MCV MCHC RDW Lymph % (Auto) Lymph # Seg Neutrophils % Seg Neuts % (Manual) Lymphocytes % (Manual) Monocytes % (Manual) Nucleated RBC % Seg Neutrophils # Seg Neutrophils # Man Lymphocytes # (Manual) Monocytes # (Manual) PT INR POC ABG pH POC ABG pCO2 POC ABG pO2 Sodium Potassium Chloride Carbon Dioxide BUN Creatinine Glucose POC Glucose 134 H 109 H 113 H Lactic Acid Calcium Phosphorus Magnesium Total Bilirubin AST C-Reactive Protein Albumin Urine Creatinine Ur Creatinine 24 Hour Crossmatch 03/05/18 03/05/18 03/05/18 00:22 05:15 05:15 WBC 24.3 H RBC 2.29 L Hgb 6.8 L Hct 20.3 L MCV MCHC RDW 16.7 H Lymph % (Auto) Lymph # Seg Neutrophils % Seg Neuts % (Manual) 88.0 H Lymphocytes % (Manual) 3.0 L Monocytes % (Manual) Nucleated RBC % Seg Neutrophils # Seg Neutrophils # Man 21.4 H Lymphocytes # (Manual) 0.7 L Monocytes # (Manual) PT INR POC ABG pH POC ABG pCO2 POC ABG pO2 Sodium 132 L Potassium Chloride 91.2 L Carbon Dioxide BUN 69 H Creatinine 3.3 H Glucose POC Glucose 113 H Lactic Acid Calcium 6.9 L Phosphorus Magnesium Total Bilirubin AST C-Reactive Protein Albumin Urine Creatinine Ur Creatinine 24 Hour Crossmatch 03/05/18 03/05/18 03/05/18 05:36 11:51 16:00 WBC RBC Hgb Hct MCV MCHC RDW Lymph % (Auto) Lymph # Seg Neutrophils % Seg Neuts % (Manual) Lymphocytes % (Manual) Monocytes % (Manual) Nucleated RBC % Seg Neutrophils # Seg Neutrophils # Man Lymphocytes # (Manual) Monocytes # (Manual) PT INR POC ABG pH 7.519 H POC ABG pCO2 27.0 L POC ABG pO2 68 L Sodium Potassium Chloride Carbon Dioxide BUN Creatinine Glucose POC Glucose 118 H 131 H Lactic Acid Calcium Phosphorus Magnesium Total Bilirubin AST C-Reactive Protein Albumin Urine Creatinine Ur Creatinine 24 Hour Crossmatch 03/06/18 03/06/18 03/06/18 00:00 01:27 04:44 WBC 24.5 H RBC 2.90 L Hgb 8.5 L Hct 25.8 L MCV MCHC RDW 16.3 H Lymph % (Auto) Lymph # Seg Neutrophils % Seg Neuts % (Manual) 96.0 H Lymphocytes % (Manual) 1.5 L Monocytes % (Manual) Nucleated RBC % 1.0 H Seg Neutrophils # Seg Neutrophils # Man 23.5 H Lymphocytes # (Manual) 0.4 L Monocytes # (Manual) PT INR POC ABG pH POC ABG pCO2 POC ABG pO2 Sodium Potassium Chloride 92.9 L Carbon Dioxide BUN 67 H Creatinine 3.4 H Glucose POC Glucose 127 H Lactic Acid Calcium 7.2 L Phosphorus Magnesium Total Bilirubin AST C-Reactive Protein Albumin Urine Creatinine Ur Creatinine 24 Hour Crossmatch 03/06/18 03/06/18 03/06/18 04:54 05:54 12:08 WBC RBC Hgb Hct MCV MCHC RDW Lymph % (Auto) Lymph # Seg Neutrophils % Seg Neuts % (Manual) Lymphocytes % (Manual) Monocytes % (Manual) Nucleated RBC % Seg Neutrophils # Seg Neutrophils # Man Lymphocytes # (Manual) Monocytes # (Manual) PT INR POC ABG pH 7.551 H POC ABG pCO2 29.5 L POC ABG pO2 57 L Sodium Potassium Chloride Carbon Dioxide BUN Creatinine Glucose POC Glucose 108 H 123 H Lactic Acid Calcium Phosphorus Magnesium Total Bilirubin AST C-Reactive Protein Albumin Urine Creatinine Ur Creatinine 24 Hour Crossmatch 03/06/18 03/07/18 03/07/18 21:16 05:00 05:00 WBC 17.5 H RBC 2.41 L Hgb 7.3 L Hct 21.5 L MCV MCHC RDW 16.6 H Lymph % (Auto) Lymph # Seg Neutrophils % Seg Neuts % (Manual) 97.0 H Lymphocytes % (Manual) 1.0 L Monocytes % (Manual) Nucleated RBC % Seg Neutrophils # Seg Neutrophils # Man 17.0 H Lymphocytes # (Manual) 0.2 L Monocytes # (Manual) PT INR POC ABG pH 7.639 H POC ABG pCO2 25.3 L POC ABG pO2 Sodium Potassium Chloride 90.6 L Carbon Dioxide BUN 65 H Creatinine 3.4 H Glucose POC Glucose Lactic Acid Calcium 7.3 L Phosphorus Magnesium Total Bilirubin AST C-Reactive Protein Albumin Urine Creatinine Ur Creatinine 24 Hour Crossmatch 03/07/18 03/08/18 03/08/18 06:32 04:30 11:54 WBC 13.9 H RBC 2.36 L Hgb 7.1 L Hct 21.2 L MCV MCHC RDW 16.5 H Lymph % (Auto) Lymph # Seg Neutrophils % Seg Neuts % (Manual) 91.0 H Lymphocytes % (Manual) 2.0 L Monocytes % (Manual) Nucleated RBC % Seg Neutrophils # Seg Neutrophils # Man 12.6 H Lymphocytes # (Manual) 0.3 L Monocytes # (Manual) PT INR POC ABG pH 7.498 H POC ABG pCO2 30.2 L POC ABG pO2 44 L Sodium Potassium Chloride Carbon Dioxide BUN Creatinine Glucose POC Glucose 121 H Lactic Acid Calcium Phosphorus Magnesium Total Bilirubin AST C-Reactive Protein Albumin Urine Creatinine Ur Creatinine 24 Hour Crossmatch 03/08/18 03/08/18 03/09/18 18:29 23:52 05:45 WBC 12.9 H RBC 2.31 L Hgb 6.9 L Hct 20.9 L MCV MCHC RDW 16.7 H Lymph % (Auto) 5.5 L Lymph # 0.7 L Seg Neutrophils % 89.2 H Seg Neuts % (Manual) Lymphocytes % (Manual) Monocytes % (Manual) Nucleated RBC % Seg Neutrophils # 11.5 H Seg Neutrophils # Man Lymphocytes # (Manual) Monocytes # (Manual) PT INR POC ABG pH POC ABG pCO2 POC ABG pO2 Sodium Potassium Chloride Carbon Dioxide BUN Creatinine Glucose POC Glucose 106 H 115 H Lactic Acid Calcium Phosphorus Magnesium Total Bilirubin AST C-Reactive Protein Albumin Urine Creatinine Ur Creatinine 24 Hour Crossmatch 03/09/18 03/09/18 03/09/18 06:13 12:00 12:20 WBC RBC Hgb Hct MCV MCHC RDW Lymph % (Auto) Lymph # Seg Neutrophils % Seg Neuts % (Manual) Lymphocytes % (Manual) Monocytes % (Manual) Nucleated RBC % Seg Neutrophils # Seg Neutrophils # Man Lymphocytes # (Manual) Monocytes # (Manual) PT INR POC ABG pH POC ABG pCO2 POC ABG pO2 Sodium Potassium 3.3 L Chloride 82.2 L Carbon Dioxide 19 L D BUN 62 H Creatinine 3.0 H Glucose POC Glucose 122 H 113 H Lactic Acid Calcium 6.1 L D Phosphorus Magnesium Total Bilirubin AST C-Reactive Protein Albumin Urine Creatinine Ur Creatinine 24 Hour Crossmatch 03/09/18 03/09/18 03/10/18 13:30 17:38 06:55 WBC RBC 1.94 L Hgb 6.0 L Hct 17.8 L* MCV MCHC RDW 16.6 H Lymph % (Auto) 4.6 L Lymph # 0.5 L Seg Neutrophils % 90.0 H Seg Neuts % (Manual) Lymphocytes % (Manual) Monocytes % (Manual) Nucleated RBC % Seg Neutrophils # 9.1 H Seg Neutrophils # Man Lymphocytes # (Manual) Monocytes # (Manual) PT INR POC ABG pH POC ABG pCO2 POC ABG pO2 Sodium Potassium Chloride Carbon Dioxide BUN Creatinine Glucose POC Glucose Lactic Acid Calcium Phosphorus Magnesium Total Bilirubin AST C-Reactive Protein Albumin Urine Creatinine 69.2 H 69.2 H Ur Creatinine 24 Hour 0.3 L Crossmatch 03/10/18 03/10/18 03/10/18 06:55 09:00 12:14 WBC RBC Hgb Hct MCV MCHC RDW Lymph % (Auto) Lymph # Seg Neutrophils % Seg Neuts % (Manual) Lymphocytes % (Manual) Monocytes % (Manual) Nucleated RBC % Seg Neutrophils # Seg Neutrophils # Man Lymphocytes # (Manual) Monocytes # (Manual) PT INR POC ABG pH POC ABG pCO2 POC ABG pO2 Sodium 135 L Potassium Chloride 90.2 L Carbon Dioxide BUN 82 H Creatinine 3.9 H Glucose POC Glucose 107 H Lactic Acid Calcium 7.6 L D Phosphorus Magnesium Total Bilirubin AST C-Reactive Protein Albumin Urine Creatinine Ur Creatinine 24 Hour Crossmatch See Detail 03/10/18 03/10/18 03/11/18 18:14 20:02 14:25 WBC RBC Hgb 7.7 L Hct 23.3 L MCV MCHC RDW Lymph % (Auto) Lymph # Seg Neutrophils % Seg Neuts % (Manual) Lymphocytes % (Manual) Monocytes % (Manual) Nucleated RBC % Seg Neutrophils # Seg Neutrophils # Man Lymphocytes # (Manual) Monocytes # (Manual) PT INR POC ABG pH POC ABG pCO2 POC ABG pO2 Sodium Potassium Chloride 94.6 L Carbon Dioxide BUN 69 H Creatinine 3.7 H Glucose POC Glucose 126 H Lactic Acid Calcium 8.0 L Phosphorus Magnesium Total Bilirubin AST C-Reactive Protein Albumin Urine Creatinine Ur Creatinine 24 Hour Crossmatch 03/12/18 03/12/18 03/12/18 04:19 05:45 05:45 WBC RBC 2.44 L Hgb 7.4 L Hct 22.6 L MCV MCHC RDW 16.1 H Lymph % (Auto) Lymph # Seg Neutrophils % Seg Neuts % (Manual) Lymphocytes % (Manual) Monocytes % (Manual) Nucleated RBC % Seg Neutrophils # Seg Neutrophils # Man Lymphocytes # (Manual) Monocytes # (Manual) PT INR POC ABG pH POC ABG pCO2 POC ABG pO2 71 L Sodium Potassium Chloride 95.1 L Carbon Dioxide BUN 72 H Creatinine 4.0 H Glucose POC Glucose Lactic Acid Calcium 7.9 L Phosphorus Magnesium Total Bilirubin AST C-Reactive Protein Albumin Urine Creatinine Ur Creatinine 24 Hour Crossmatch 03/13/18 03/13/18 03/13/18 06:30 12:38 18:32 WBC RBC Hgb Hct MCV MCHC RDW Lymph % (Auto) Lymph # Seg Neutrophils % Seg Neuts % (Manual) Lymphocytes % (Manual) Monocytes % (Manual) Nucleated RBC % Seg Neutrophils # Seg Neutrophils # Man Lymphocytes # (Manual) Monocytes # (Manual) PT INR POC ABG pH 7.287 L POC ABG pCO2 54.6 H POC ABG pO2 78 L Sodium 136 L Potassium Chloride 91.8 L Carbon Dioxide BUN 76 H Creatinine 4.1 H Glucose POC Glucose 106 H Lactic Acid Calcium 8.0 L Phosphorus Magnesium Total Bilirubin AST C-Reactive Protein Albumin Urine Creatinine Ur Creatinine 24 Hour Crossmatch 03/13/18 03/14/18 03/14/18 23:34 05:30 05:30 WBC RBC Hgb Hct MCV MCHC RDW Lymph % (Auto) Lymph # Seg Neutrophils % Seg Neuts % (Manual) Lymphocytes % (Manual) Monocytes % (Manual) Nucleated RBC % Seg Neutrophils # Seg Neutrophils # Man Lymphocytes # (Manual) Monocytes # (Manual) PT INR POC ABG pH POC ABG pCO2 POC ABG pO2 Sodium 135 L Potassium Chloride 87.4 L Carbon Dioxide BUN 60 H Creatinine 3.7 H Glucose 102 H POC Glucose 111 H Lactic Acid Calcium 7.9 L Phosphorus Magnesium 1.60 L Total Bilirubin AST C-Reactive Protein Albumin Urine Creatinine Ur Creatinine 24 Hour Crossmatch 03/14/18 08:30 WBC RBC 2.58 L Hgb 7.9 L Hct 24.2 L MCV MCHC RDW 16.0 H Lymph % (Auto) Lymph # Seg Neutrophils % Seg Neuts % (Manual) Lymphocytes % (Manual) Monocytes % (Manual) Nucleated RBC % Seg Neutrophils # Seg Neutrophils # Man Lymphocytes # (Manual) Monocytes # (Manual) PT INR POC ABG pH POC ABG pCO2 POC ABG pO2 Sodium Potassium Chloride Carbon Dioxide BUN Creatinine Glucose POC Glucose Lactic Acid Calcium Phosphorus Magnesium Total Bilirubin AST C-Reactive Protein Albumin Urine Creatinine Ur Creatinine 24 Hour Crossmatch Chest x-ray: pending Allied health notes reviewed: RT
[2018-03-14] MEDS: fentaNYL DRIP Premix 2,000 MCG/100 ML BAG IV SCH ×2 (12:13→21:55)
[2018-03-14] MEDS ORDERED: MAGNESIUM SULFATE 2GM/50ML 2 GM/50 ML BAG IV ONE (13:00)
[2018-03-14] MEDS ORDERED: CORDARONE 150 MG in D5W 97 ML IV ONE (13:30)
[2018-03-14] MEDS: LOPRESSOR PO SCH ×2 (13:52→22:33)
[2018-03-14] MEDS: CORDARONE 900 MG in D5W 482 ML IV SCH (13:56)
--- NOTE | 2018-03-14 17:51 | XRay Report ---
FINAL REPORT EXAM: XR CHEST 1V AP HISTORY: pulmonary edema TECHNIQUE: Frontal portable examination of the chest PRIORS: 03/05/2018 FINDINGS: Oblique patient position limits the examination. Stable position of endotracheal tube. A left venous catheter remains in place with distal tip near the cavoatrial junction region. A new left venous catheter is also in place with distal tip near the cavoatrial junction region. Nonspecific slightly greater patchy opacity in left lung base. Slightly greater prominence of nonspecific patchy opacity right midlung. No pneumothorax. Right cardiac margin obscured. No definite evidence of vascular congestion. No acute displaced fracture. IMPRESSION: Bilateral pulmonary opacities may again reflect edema and/or pneumonia as well as atelectasis
[2018-03-14] MEDS ORDERED: TRANSDERM-SCOP TD SCH (18:00)
[2018-03-14] MEDS: ROBINUL PO SCH (21:54)
[2018-03-15] MEDS: HumuLIN R SUB-Q SCH ×4 (04:19→21:59)
[2018-03-15] MEDS: fentaNYL DRIP Premix 2,000 MCG/100 ML BAG IV SCH (06:38)
[2018-03-15] MEDS: CORDARONE 900 MG in D5W 482 ML IV SCH (06:41)
[2018-03-15] MEDS: KEPPRA FEEDTUBE SCH ×2 (06:53→18:26)
[2018-03-15 07:35] LABS: Albumin 2.8 g/dL (3.9-5); Calcium 7.9 mg/dL (8.4-10.2)
[2018-03-15 07:43] LABS: Basophils % (Auto) 0.3 % (0.0-1.8); Eosinophils # (Auto) 0.1 K/mm3 (0.0-0.4); Eosinophils % (Auto) 0.8 % (0.0-4.3); Hemoglobin 7.2 gm/dl (11.8-15.2); Lymphocytes # (Auto) 0.8 K/mm3 (1.2-5.4); Lymphocytes % (Auto) 8.7 % (13.4-35.0); Mean Corpuscular HGB Conc 33 % (32-34); Mean Corpuscular Hemoglobin 30 pg (28-32); Mean Corpuscular Volume 92 fl (84-94); Monocytes # (Auto) 0.8 K/mm3 (0.0-0.8); Monocytes % (Auto) 8.7 % (0.0-7.3); Platelet Count 130 K/mm3 (140-440); Red Blood Count 2.39 M/mm3 (3.65-5.03); Red Cell Distribution Width 16.2 % (13.2-15.2)
[2018-03-15] MEDS: DUONEB *Not for PRN Use IH SCH ×3 (07:55→23:25)
--- NOTE | 2018-03-15 08:34 | Progress Note ---
Assessment and Plan Assessment and plan: 72-year-old male with history of cerebrovascular accident and hemiplegia, Alzheimer's and nonverbal from [facility] was admitted with altered mental state.Patient was febrile 103.2F as well as and respiratory failure 03/03: Went into cardiopulmonary arrest. Resuscitated according to ACLS protocol and commenced on IV Levophed for hypotension 03/05: Pt had recurrent seizure over the night and CT head showed right MCA acute /subacute stroke and calcified meningioma in the left frontal area 03/12: commence on renal replacemtn therapy 03/11 --Acute hypoxic respiratory failure; vent dependent Planning Tracheostomy on 03/17/2018 Continue ventilatory support, nebulizers, pulmonary following --Severe sepsis with septic shock;Resolved, --Acute kidney injury; secondary to ATN On hemodialysis, nephrology following, HD per schedule --Metabolic encephalopathy; multifactorial supportive care --Status post cardiac arrest/anoxic encephalopathy Continue supportive care, poor prognosis --Acute/ Subacute right MCA distribution stroke Supportive care --Meningioma left frontal area 2.8 x 2.2cm Prophylactic seizure medications with Keppra --Sacral Pressure ulcer Continue wound care --History of BPH Continue Finasteride --Hyperlipidemia; statin --Anemia of chronic disease; Closely monitor transfuse as needed --DVT prophylaxis; heparin renal dose Poor prognosis The high probability of a clinically significant, sudden or life threatening deterioration of the [neurological , renal ,metabolic and PULMONARY] system(s) required my full and direct attention, intervention and personal management. The aggregate critical care time was [32] minutes. This time is in addition to time spent performing reported procedures but includes the following: [X] Data Review and interpretation [X] Patient assessment and monitoring of vital signs [X] Documentation [X] Medication orders and management History Interval history: Patient seen and examined medical records reviewed Remains intubated on ventilatory support, vent dependent Awaiting tracheostomy, scheduled for 03/17/2018 New events reported by the nursing Vital signs reviewed Hospitalist Physical - Constitutional Vitals: Temp Pulse Resp BP Pulse Ox 98.3 F 109 H 18 98/65 99 03/15/18 07:56 03/15/18 07:55 03/15/18 07:55 03/15/18 07:52 03/15/18 07:52 General appearance: Present: no acute distress, well-nourished, other ( intubated on vent and sedated) - EENT Eyes: Present: PERRL, scleral icterus - Neck Neck: Present: supple, normal ROM - Respiratory Respiratory effort: normal Respiratory: bilateral: diminished, rhonchi, negative: rales, wheezing - Cardiovascular Rhythm: regular Heart Sounds: Present: S1 & S2 - Extremities Extremities: no ischemia, No edema - Abdominal General gastrointestinal: soft, non-tender, non-distended, other (PEG in place) - Integumentary Integumentary: Present: clear, warm - Psychiatric Psychiatric: other (intubated and sedated) - Neurologic Neurologic: other (intubated and sedated) Results - Labs CBC & Chem 7: 03/15/18 06:45 03/15/18 06:45 Labs: Laboratory Last Values WBC 9.3 K/mm3 (4.5-11.0) 03/15/18 06:45 RBC 2.39 M/mm3 (3.65-5.03) L 03/15/18 06:45 Hgb 7.2 gm/dl (11.8-15.2) L 03/15/18 06:45 Hct 22.0 % (35.5-45.6) L 03/15/18 06:45 MCV 92 fl (84-94) 03/15/18 06:45 MCH 30 pg (28-32) 03/15/18 06:45 MCHC 33 % (32-34) 03/15/18 06:45 RDW 16.2 % (13.2-15.2) H 03/15/18 06:45 Plt Count 130 K/mm3 (140-440) L 03/15/18 06:45 Lymph % (Auto) 8.7 % (13.4-35.0) L 03/15/18 06:45 Carson % (Auto) 8.7 % (0.0-7.3) H 03/15/18 06:45 Eos % (Auto) 0.8 % (0.0-4.3) 03/15/18 06:45 Baso % (Auto) 0.3 % (0.0-1.8) 03/15/18 06:45 Lymph # 0.8 K/mm3 (1.2-5.4) L 03/15/18 06:45 Carson # 0.8 K/mm3 (0.0-0.8) 03/15/18 06:45 Eos # 0.1 K/mm3 (0.0-0.4) 03/15/18 06:45 Baso # 0.0 K/mm3 (0.0-0.1) 03/15/18 06:45 Add Manual Diff Complete 03/08/18 04:30 Total Counted 100 03/08/18 04:30 Seg Neutrophils % 81.5 % (40.0-70.0) H 03/15/18 06:45 Seg Neuts % (Manual) 91.0 % (40.0-70.0) H 03/08/18 04:30 Band Neutrophils % 1.0 % 03/08/18 04:30 Lymphocytes % (Manual) 2.0 % (13.4-35.0) L 03/08/18 04:30 Reactive Lymphs % (Man) 0 % 03/08/18 04:30 Monocytes % (Manual) 4.0 % (0.0-7.3) 03/08/18 04:30 Eosinophils % (Manual) 0 % (0.0-4.3) 03/08/18 04:30 Basophils % (Manual) 1.0 % (0.0-1.8) 03/08/18 04:30 Metamyelocytes % 0 % 03/08/18 04:30 Myelocytes % 1.0 % 03/08/18 04:30 Promyelocytes % 0 % 03/08/18 04:30 Blast Cells % 0 % 03/08/18 04:30 Nucleated RBC % Not Reportable 03/08/18 04:30 Seg Neutrophils # 7.6 K/mm3 (1.8-7.7) 03/15/18 06:45 Seg Neutrophils # Man 12.6 K/mm3 (1.8-7.7) H 03/08/18 04:30 Band Neutrophils # 0.1 K/mm3 03/08/18 04:30 Lymphocytes # (Manual) 0.3 K/mm3 (1.2-5.4) L 03/08/18 04:30 Abs React Lymphs (Man) 0.0 K/mm3 03/08/18 04:30 Monocytes # (Manual) 0.6 K/mm3 (0.0-0.8) 03/08/18 04:30 Eosinophils # (Manual) 0.0 K/mm3 (0.0-0.4) 03/08/18 04:30 Basophils # (Manual) 0.1 K/mm3 (0.0-0.1) 03/08/18 04:30 Metamyelocytes # 0.0 K/mm3 03/08/18 04:30 Myelocytes # 0.1 K/mm3 03/08/18 04:30 Promyelocytes # 0.0 K/mm3 03/08/18 04:30 Blast Cells # 0.0 K/mm3 03/08/18 04:30 WBC Morphology Not Reportable 03/08/18 04:30 Hypersegmented Neuts Not Reportable 03/08/18 04:30 Hyposegmented Neuts Not Reportable 03/08/18 04:30 Hypogranular Neuts Not Reportable 03/08/18 04:30 Smudge Cells Not Reportable 03/08/18 04:30 Toxic Granulation Not Reportable 03/08/18 04:30 Toxic Vacuolation Not Reportable 03/08/18 04:30 Dohle Bodies Not Reportable 03/08/18 04:30 Pelger-Huet Anomaly Not Reportable 03/08/18 04:30 Erwin Rods Not Reportable 03/08/18 04:30 Platelet Estimate Consistent w auto 03/08/18 04:30 Clumped Platelets Not Reportable 03/08/18 04:30 Plt Clumps, EDTA Not Reportable 03/08/18 04:30 Large Platelets Not Reportable 03/08/18 04:30 Giant Platelets Not Reportable 03/08/18 04:30 Platelet Satelliting Not Reportable 03/08/18 04:30 Plt Morphology Comment Not Reportable 03/08/18 04:30 RBC Morphology Not Reportable 03/08/18 04:30 Dimorphic RBCs Not Reportable 03/08/18 04:30 Polychromasia Not Reportable 03/08/18 04:30 Hypochromasia Not Reportable 03/08/18 04:30 Poikilocytosis Not Reportable 03/08/18 04:30 Anisocytosis Not Reportable 03/08/18 04:30 Microcytosis Not Reportable 03/08/18 04:30 Macrocytosis Not Reportable 03/08/18 04:30 Spherocytes Not Reportable 03/08/18 04:30 Pappenheimer Bodies Not Reportable 03/08/18 04:30 Sickle Cells Not Reportable 03/08/18 04:30 Target Cells 1+ 03/08/18 04:30 Tear Drop Cells Not Reportable 03/08/18 04:30 Ovalocytes Not Reportable 03/08/18 04:30 Stomatocytes Few 02/28/18 09:00 Helmet Cells Not Reportable 03/08/18 04:30 [place] Bodies Not Reportable 03/08/18 04:30 [place] Rings Not Reportable 03/08/18 04:30 [place] Cells Not Reportable 03/08/18 04:30 Bite Cells Not Reportable 03/08/18 04:30 Crenated Cell Not Reportable 03/08/18 04:30 Elliptocytes Not Reportable 03/08/18 04:30 Acanthocytes (Spur) Not Reportable 03/08/18 04:30 Rouleaux Not Reportable 03/08/18 04:30 Hemoglobin C Crystals Not Reportable 03/08/18 04:30 Schistocytes Not Reportable 03/08/18 04:30 Malaria parasites Not Reportable 03/08/18 04:30 Aric Bodies Not Reportable 03/08/18 04:30 Hem Pathologist Commnt No 03/08/18 04:30 PT 21.5 Sec. (12.2-14.9) H 02/26/18 20:50 INR 1.75 (0.87-1.13) H 02/26/18 20:50 POC ABG pH 7.483 (7.35-7.45) H 03/14/18 13:10 POC ABG pCO2 30.7 (35-45) L 03/14/18 13:10 POC ABG pO2 55 (80-105) L 03/14/18 13:10 POC ABG HCO3 23.0 03/14/18 13:10 POC ABG Total CO2 24 03/14/18 13:10 POC ABG O2 Sat 91 03/14/18 13:10 POC ABG Base Excess 0 03/14/18 13:10 VBG pH 7.406 (7.320-7.420) 02/25/18 23:15 FiO2 50 % 03/14/18 13:10 Sodium 133 mmol/L (137-145) L 03/15/18 06:45 Potassium 3.9 mmol/L (3.6-5.0) 03/15/18 06:45 Chloride 90.7 mmol/L (98-107) L 03/15/18 06:45 Carbon Dioxide 23 mmol/L (22-30) 03/15/18 06:45 Anion Gap 23 mmol/L 03/15/18 06:45 BUN 64 mg/dL (9-20) H 03/15/18 06:45 Creatinine 4.7 mg/dL (0.8-1.5) H 03/15/18 06:45 Estimated GFR 15 ml/min 03/15/18 06:45 BUN/Creatinine Ratio 14 % 03/15/18 06:45 Glucose 118 mg/dL (75-100) H 03/15/18 06:45 POC Glucose 129 (70-105) H 03/14/18 18:05 Lactic Acid 3.10 mmol/L (0.7-2.0) H* 02/28/18 07:04 Calcium 7.9 mg/dL (8.4-10.2) L 03/15/18 06:45 Phosphorus 5.10 mg/dL (2.5-4.5) H 03/03/18 04:30 Magnesium 1.60 mg/dL (1.7-2.3) L 03/14/18 05:30 Total Bilirubin 0.80 mg/dL (0.1-1.2) 03/15/18 06:45 AST 55 units/L (5-40) H 03/15/18 06:45 ALT 19 units/L (7-56) 03/15/18 06:45 Alkaline Phosphatase 117 units/L (35-129) 03/15/18 06:45 C-Reactive Protein 19.80 mg/dL (0.00-1.30) H 03/04/18 05:30 Total Protein 6.2 g/dL (6.3-8.2) L 03/15/18 06:45 Albumin 2.8 g/dL (3.9-5) L 03/15/18 06:45 Albumin/Globulin Ratio 0.8 % 03/15/18 06:45 Lipase 35 units/L (13-60) 02/26/18 02:58 TSH 2.670 mlU/mL (0.270-4.200) 02/26/18 00:10 Free T4 1.26 ng/dL (0.76-1.46) 02/26/18 00:10 Urine Color Lesley (Yellow) 02/26/18 00:32 Urine Turbidity Hazy (Clear) 02/26/18 00:32 Urine pH 5.0 (5.0-7.0) 02/26/18 00:32 Ur Specific Wilber 1.015 (1.003-1.030) 02/26/18 00:32 Urine Protein <15 mg/dl mg/dL (Negative) 02/26/18 00:32 Urine Glucose (UA) Neg mg/dL (Negative) 02/26/18 00:32 Urine Ketones Neg mg/dL (Negative) 02/26/18 00:32 Urine Blood Neg (Negative) 02/26/18 00:32 Urine Nitrite Neg (Negative) 02/26/18 00:32 Urine Bilirubin Neg (Negative) 02/26/18 00:32 Urine Urobilinogen 4.0 mg/dL (<2.0) 02/26/18 00:32 Ur Leukocyte Esterase Neg (Negative) 02/26/18 00:32 Urine WBC (Auto) 1.0 /HPF (0.0-6.0) 02/26/18 00:32 Urine RBC (Auto) 1.0 /HPF (0.0-6.0) 02/26/18 00:32 U Epithel Cells (Auto) 1.0 /HPF (0-13.0) 02/26/18 00:32 Amorphous Crystals 3+ 02/26/18 00:32 Hyaline Casts 4 /LPF 02/26/18 00:32 Urine Mucus Few /HPF 02/26/18 00:32 Urine Total Volume 490 03/09/18 17:38 Urine Creatinine 69.2 mg/dL (0.1-20.0) H 03/09/18 17:38 Ur Creatinine 24 Hour 0.3 (0.8-2.8) L 03/09/18 13:30 Height (in) 67.0 inches 03/09/18 17:38 Weight (lb) 159.0 lbs 03/09/18 17:38 Creatinine Clearance 7 03/09/18 17:38 Urine Sodium 67 mmol/L 02/26/18 13:08 Hep Bs Antigen Non-reactive (Negative) 03/11/18 14:25 Hepatitis C Antibody Non-reactive (NonReactive) 03/11/18 14:44 Blood Type A POSITIVE 03/10/18 09:00 Antibody Screen Negative 03/10/18 09:00 Crossmatch See Detail 03/10/18 09:00
[2018-03-15] MEDS: ROBINUL PO SCH ×3 (08:53→21:57)
--- NOTE | 2018-03-15 09:10 | Progress Note ---
Assessment and Plan - Patient Problems (1) Acute on chronic renal failure Current Visit: Yes Status: Acute Qualifiers: Acute renal failure type: unspecified Chronic kidney disease stage: unspecified stage Qualified Code(s): N17.9 - Acute kidney failure, unspecified ; N18.9 - Chronic kidney disease, unspecified Plan to address problem: DIANNA/ ATN-S/P cardiorespiratory arrest, Acute respiratory failure, Sepsis- multifactorial. Multiple comorbid conditions-poor prognosis. Monitor renal function/ urine output. Hypotension. Hold off HD today. Adjust meds per renal function. Continue supportive care. Doubt HD alter the clinical outcome (2) Acute hypoxemic respiratory failure Current Visit: Yes Status: Acute (3) Pneumonia Current Visit: Yes Status: Acute Qualifiers: Pneumonia type: due to unspecified organism Laterality: left Lung location: lower lobe of lung Qualified Code(s): J18.1 - Lobar pneumonia, unspecified organism (4) Sepsis Current Visit: Yes Status: Acute Qualifiers: Sepsis type: sepsis due to unspecified organism Qualified Code(s): A41.9 - Sepsis, unspecified organism (5) Acute CVA (cerebrovascular accident) Current Visit: No Status: Acute (6) Acute encephalopathy Current Visit: No Status: Acute Subjective Date of service: 03/15/18 Principal diagnosis: Acute Hypoxemic Resp Failure; Severe Sepsis; Aspiration Pneumonai (HCAP) Interval history: pt is orally intubated, on ventilator, Fio2- 50%, sedated. Chart was reviewed, spoke with pt's nurse. clinical condition worsening. Reported to be hypotensive- -on Vasopressin drip. Also was placed on Amiodarone drip last night. Objective - Vital Signs Vital signs: Vital Signs - 12hr 03/14/18 03/14/18 03/14/18 22:00 22:06 22:33 Temperature Pulse Rate 102 H 103 H 93 H Pulse Rate [ Anterior Bilateral Throughout] Pulse Rate [ From Monitor] Pulse Rate [ Left Dorsalis Pedis] Pulse Rate [ Left Radial] Pulse Rate [ Right Dorsalis Pedis] Pulse Rate [ Right Radial] Respiratory 21 20 Rate Respiratory Rate [Anterior Bilateral Throughout] Blood Pressure 101/68 116/67 93/56 O2 Sat by Pulse 92 97 Oximetry 03/14/18 03/14/18 03/14/18 23:00 23:15 23:17 Temperature Pulse Rate 92 H 109 H Pulse Rate [ 90 Anterior Bilateral Throughout] Pulse Rate [ From Monitor] Pulse Rate [ Left Dorsalis Pedis] Pulse Rate [ Left Radial] Pulse Rate [ Right Dorsalis Pedis] Pulse Rate [ Right Radial] Respiratory 19 Rate Respiratory 20 Rate [Anterior Bilateral Throughout] Blood Pressure 111/58 111/58 O2 Sat by Pulse 95 97 Oximetry 03/15/18 03/15/18 03/15/18 00:00 01:00 02:00 Temperature Pulse Rate 87 89 91 H Pulse Rate [ Anterior Bilateral Throughout] Pulse Rate [ 87 From Monitor] Pulse Rate [ 87 Left Dorsalis Pedis] Pulse Rate [ 87 Left Radial] Pulse Rate [ 87 Right Dorsalis Pedis] Pulse Rate [ 87 Right Radial] Respiratory 20 22 21 Rate Respiratory Rate [Anterior Bilateral Throughout] Blood Pressure 100/57 108/65 110/63 O2 Sat by Pulse 91 95 97 Oximetry 03/15/18 03/15/18 03/15/18 03:00 03:17 04:00 Temperature 98.6 F Pulse Rate 95 H 97 H 98 H Pulse Rate [ Anterior Bilateral Throughout] Pulse Rate [ 98 H From Monitor] Pulse Rate [ 98 H Left Dorsalis Pedis] Pulse Rate [ 98 H Left Radial] Pulse Rate [ 98 H Right Dorsalis Pedis] Pulse Rate [ 98 H Right Radial] Respiratory 18 18 Rate Respiratory Rate [Anterior Bilateral Throughout] Blood Pressure 113/68 113/68 93/69 O2 Sat by Pulse 95 95 96 Oximetry 03/15/18 03/15/18 03/15/18 05:00 06:00 07:00 Temperature Pulse Rate 99 H 103 H 108 H Pulse Rate [ Anterior Bilateral Throughout] Pulse Rate [ From Monitor] Pulse Rate [ Left Dorsalis Pedis] Pulse Rate [ Left Radial] Pulse Rate [ Right Dorsalis Pedis] Pulse Rate [ Right Radial] Respiratory 17 22 23 Rate Respiratory Rate [Anterior Bilateral Throughout] Blood Pressure 89/71 101/74 98/65 O2 Sat by Pulse 94 94 94 Oximetry 03/15/18 03/15/18 03/15/18 07:52 07:55 07:56 Temperature 98.3 F Pulse Rate 106 H Pulse Rate [ 109 H Anterior Bilateral Throughout] Pulse Rate [ From Monitor] Pulse Rate [ Left Dorsalis Pedis] Pulse Rate [ Left Radial] Pulse Rate [ Right Dorsalis Pedis] Pulse Rate [ Right Radial] Respiratory Rate Respiratory 18 Rate [Anterior Bilateral Throughout] Blood Pressure 98/65 O2 Sat by Pulse 99 Oximetry 03/15/18 08:00 Temperature Pulse Rate 104 H Pulse Rate [ Anterior Bilateral Throughout] Pulse Rate [ From Monitor] Pulse Rate [ Left Dorsalis Pedis] Pulse Rate [ Left Radial] Pulse Rate [ Right Dorsalis Pedis] Pulse Rate [ Right Radial] Respiratory 20 Rate Respiratory Rate [Anterior Bilateral Throughout] Blood Pressure 80/47 O2 Sat by Pulse 96 Oximetry - General Appearance General appearance: chronically ill, sedated on ventilator EENT: mucous membranes dry Neck: no JVD Respiratory: Present: Decreased Breath Sounds Cardiology: regular Gastrointestinal: normoactive bowel sounds, other (PEG) Musculoskeletal: other (left IJ vas cath) - Lab 03/15/18 06:45 03/15/18 06:45 Most recent lab results Calcium 7.9 mg/dL (8.4-10.2) L 03/15/18 06:45 Phosphorus 5.10 mg/dL (2.5-4.5) H 03/03/18 04:30 Magnesium 1.60 mg/dL (1.7-2.3) L 03/14/18 05:30 Urine Creatinine 69.2 mg/dL (0.1-20.0) H 03/09/18 17:38 Urine Sodium 67 mmol/L 02/26/18 13:08
--- NOTE | 2018-03-15 09:59 | Event Note ---
Date: 03/15/18 intubated mech vent unresp bp 80/50 hr 105 sinus tach chest: decreased breath sounds cor:rrr abd: soft. peg ext. no edema
[2018-03-15] MEDS: Vasostrict 20 UNIT in NACL 0.9% 100 ML IV SCH ×2 (10:01→21:46)
--- NOTE | 2018-03-15 10:03 | Event Note ---
Date: 03/15/18 intubated mech vent unresp no family present bp 80/50 hr 100 tel afib chest: diminished breath sounds cor: irr irr abd: soft. peg ext: 1+ edema bilat le cr 4.7 h/h 7.2/22 k+ 3.9 IMP: acute resp failure acute/chronc kidney disease afib sepsis Plan: continue current cardiac mgt per nephrology vent mgt per process description writer
[2018-03-15] MEDS: BABY ASPIRIN PO SCH (10:34)
[2018-03-15] MEDS: LOPRESSOR PO SCH ×2 (10:34→21:49)
[2018-03-15] MEDS: PEPCID PO SCH (10:34)
[2018-03-15] MEDS: HEPARIN SUB-Q SCH ×2 (10:34→21:48)
[2018-03-15] MEDS: SODIUM CHLORIDE FLUSH SYRINGE 10 ML IV SCH ×2 (10:35→21:58)
--- NOTE | 2018-03-15 14:40 | Progress Note ---
Assessment and Plan Severe sepsis with septic shock. Aspiration pneumonia, healthcare associated. Acute on chronic encephalopathy. Acute on chronic kidney injury. Anemia. Hypernatremia. Metabolic acidosis. Lactic acidosis. History of hypertension. History of diabetes. History of Alzheimer dementia. - metoprolol 5 mg IV q6h prn ordered for RVR - cardiology evaluation ongoing - tracheostomy tentatively rescheduled for tuesday - get ABG and address as necessary - keep Peep at 7 cmH2O for now - repeat CXR in am +/- ? thoracentesis - tolerating HD/UF well so far - s/p LIJ vascath - continue bronchodilators with pulmonary hygiene per RT - continue to wean FiO2 for sats > 90% - continue addressing VAP bundle daily - begin vasopressin if MAP ,60mmHg re; tachycardia - strict I's & O's re: DIANNA and will leave shrestha catheter in place for now - further azotemia management per manager performance improvement (input appreciated) - conservative volume management strategies at this point - continue to trend CRP and lactate prn - continue enteral nutrition as tolerated - continue mobility protocol for pressure ulcer prophylaxis - continue GI & VTE prophylaxis - continue antibiotics; on vancomycin for MRSA pneumonia and following other cultures - ID evaluation ongoing (de-escalate Anti-infective's per ID recs) - continue contact precautions re: 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 The aggregate critical care time was [35] minutes without overlap. Time includes spent on; [x] Data Review and interpretation [x] Patient assessment and monitoring of vital signs [x] Documentation [x] Medication orders and management Subjective Date of service: 03/15/18 Principal diagnosis: Acute Hypoxemic Resp Failure; Severe Sepsis; Aspiration Pneumonai (HCAP) Interval history: Patient is seen today for: Acute Hypoxemic Resp Failure; Severe Sepsis; Aspiration Pneumonai (HCAP) Seen and examined at bedside; 24hour events reviewed; nursing and respiratory care staff consulted; no adverse overnight events reported to me; remains on MVS ; still hypoxemic; AMS is persistent; no emesis or overt aspiration; + A-fib with RVR and on amiodarone; cardiology consulted Objective Vital Signs - 12hr 03/15/18 03/15/18 03/15/18 03:00 03:17 04:00 Temperature 98.6 F Pulse Rate 95 H 97 H 98 H Pulse Rate [ Anterior Bilateral Throughout] Pulse Rate [ 98 H From Monitor] Pulse Rate [ 98 H Left Dorsalis Pedis] Pulse Rate [ 98 H Left Radial] Pulse Rate [ 98 H Right Dorsalis Pedis] Pulse Rate [ 98 H Right Radial] Respiratory 18 18 Rate Respiratory Rate [Anterior Bilateral Throughout] Blood Pressure 113/68 113/68 93/69 O2 Sat by Pulse 95 95 96 Oximetry 03/15/18 03/15/18 03/15/18 05:00 06:00 07:00 Temperature Pulse Rate 99 H 103 H 108 H Pulse Rate [ Anterior Bilateral Throughout] Pulse Rate [ From Monitor] Pulse Rate [ Left Dorsalis Pedis] Pulse Rate [ Left Radial] Pulse Rate [ Right Dorsalis Pedis] Pulse Rate [ Right Radial] Respiratory 17 22 23 Rate Respiratory Rate [Anterior Bilateral Throughout] Blood Pressure 89/71 101/74 98/65 O2 Sat by Pulse 94 94 94 Oximetry 03/15/18 03/15/18 03/15/18 07:52 07:55 07:56 Temperature 98.3 F Pulse Rate 106 H Pulse Rate [ 109 H Anterior Bilateral Throughout] Pulse Rate [ From Monitor] Pulse Rate [ Left Dorsalis Pedis] Pulse Rate [ Left Radial] Pulse Rate [ Right Dorsalis Pedis] Pulse Rate [ Right Radial] Respiratory Rate Respiratory 18 Rate [Anterior Bilateral Throughout] Blood Pressure 98/65 O2 Sat by Pulse 99 Oximetry 03/15/18 03/15/18 03/15/18 08:00 08:35 10:34 Temperature Pulse Rate 104 H 95 H Pulse Rate [ 111 H Anterior Bilateral Throughout] Pulse Rate [ From Monitor] Pulse Rate [ Left Dorsalis Pedis] Pulse Rate [ Left Radial] Pulse Rate [ Right Dorsalis Pedis] Pulse Rate [ Right Radial] Respiratory 20 Rate Respiratory 21 Rate [Anterior Bilateral Throughout] Blood Pressure 80/47 89/57 O2 Sat by Pulse 96 Oximetry 03/15/18 03/15/18 03/15/18 10:44 12:00 13:53 Temperature 99.1 F Pulse Rate 96 H 99 H Pulse Rate [ Anterior Bilateral Throughout] Pulse Rate [ From Monitor] Pulse Rate [ Left Dorsalis Pedis] Pulse Rate [ Left Radial] Pulse Rate [ Right Dorsalis Pedis] Pulse Rate [ Right Radial] Respiratory Rate Respiratory Rate [Anterior Bilateral Throughout] Blood Pressure 93/62 106/64 O2 Sat by Pulse 94 98 Oximetry Constitutional: appears uncomfortable, other (elderly looking AAM, normocephalic and atraumatic on MVS with increased respiratory effort) Eyes: non-icteric ENT: oropharynx moist, other (ETT 24 cm TERESA) Neck: supple, no lymphadenopathy, no JVD, other (no thyromegaly) Effort: mildly labored Ascultation: Right: diminished breath sounds (base), Bilateral: rales Percussion: Right: dull (base), Bilateral: not dull Cardiovascular: irregular rhythm, other (No R/M, S1,S2) Gastrointestinal: normoactive bowel sounds, soft, non-tender, non-distended, other (+ PEG; No HSM, scrotal edema) Integumentary: other (poor turgor) Extremities: no cyanosis, pulses normal, no ischemia or petechiae, anasarca Neurologic: pupils equal and round, unable to assess Psychiatric: other (unable to assess re: encephalopathy) CBC and BMP: 03/18/18 11:35 03/17/18 04:40 ABG, PT/INR, D-dimer: ABG POC ABG pH 7.483 (7.35-7.45) H 03/14/18 13:10 POC ABG pCO2 30.7 (35-45) L 03/14/18 13:10 POC ABG pO2 55 (80-105) L 03/14/18 13:10 POC ABG HCO3 23.0 03/14/18 13:10 POC ABG Total CO2 24 03/14/18 13:10 POC ABG O2 Sat 91 03/14/18 13:10 PT/INR, D-dimer PT 21.5 Sec. (12.2-14.9) H 02/26/18 20:50 INR 1.75 (0.87-1.13) H 02/26/18 20:50 Abnormal lab findings: Abnormal Labs 02/25/18 02/25/18 02/25/18 23:15 23:15 23:15 WBC 12.3 H RBC 3.56 L Hgb 10.2 L Hct 33.7 L MCV 95 H MCHC 30 L RDW 17.7 H Plt Count Lymph % (Auto) [place] % (Auto) Lymph # Seg Neutrophils % Seg Neuts % (Manual) 35.0 L Lymphocytes % (Manual) 13.0 L Monocytes % (Manual) 8.0 H Nucleated RBC % Seg Neutrophils # Seg Neutrophils # Man Lymphocytes # (Manual) Monocytes # (Manual) 1.0 H PT 20.3 H INR 1.63 H POC ABG pH POC ABG pCO2 POC ABG pO2 Sodium 152 H Potassium Chloride 108.7 H Carbon Dioxide 18 L BUN 136 H Creatinine 5.2 H Glucose POC Glucose Lactic Acid Calcium 8.0 L Phosphorus Magnesium Total Bilirubin 4.50 H AST 83 H C-Reactive Protein Total Protein Albumin 2.7 L Urine Creatinine Ur Creatinine 24 Hour Crossmatch 02/25/18 02/25/18 02/26/18 23:15 23:30 03:06 WBC RBC Hgb Hct MCV MCHC RDW Plt Count Lymph % (Auto) [place] % (Auto) Lymph # Seg Neutrophils % Seg Neuts % (Manual) Lymphocytes % (Manual) Monocytes % (Manual) Nucleated RBC % Seg Neutrophils # Seg Neutrophils # Man Lymphocytes # (Manual) Monocytes # (Manual) PT INR POC ABG pH POC ABG pCO2 25.2 L POC ABG pO2 69 L Sodium Potassium Chloride Carbon Dioxide BUN Creatinine Glucose POC Glucose Lactic Acid 7.00 H* 9.70 H* Calcium Phosphorus Magnesium Total Bilirubin AST C-Reactive Protein Total Protein Albumin Urine Creatinine Ur Creatinine 24 Hour Crossmatch 02/26/18 02/26/18 02/26/18 05:12 05:43 07:39 WBC 23.7 H RBC 3.27 L Hgb 9.3 L Hct 31.1 L MCV 95 H MCHC 30 L RDW 17.4 H Plt Count Lymph % (Auto) [place] % (Auto) Lymph # Seg Neutrophils % Seg Neuts % (Manual) Lymphocytes % (Manual) 2.0 L Monocytes % (Manual) Nucleated RBC % 1.0 H Seg Neutrophils # Seg Neutrophils # Man 16.1 H Lymphocytes # (Manual) 0.5 L Monocytes # (Manual) 1.2 H PT INR POC ABG pH POC ABG pCO2 19.5 L POC ABG pO2 72 L Sodium Potassium Chloride Carbon Dioxide BUN Creatinine Glucose POC Glucose Lactic Acid 8.80 H* Calcium Phosphorus Magnesium Total Bilirubin AST C-Reactive Protein Total Protein Albumin Urine Creatinine Ur Creatinine 24 Hour Crossmatch 02/26/18 02/26/18 02/26/18 07:39 12:06 13:08 WBC RBC Hgb Hct MCV MCHC RDW Plt Count Lymph % (Auto) [place] % (Auto) Lymph # Seg Neutrophils % Seg Neuts % (Manual) Lymphocytes % (Manual) Monocytes % (Manual) Nucleated RBC % Seg Neutrophils # Seg Neutrophils # Man Lymphocytes # (Manual) Monocytes # (Manual) PT INR POC ABG pH POC ABG pCO2 27.8 L POC ABG pO2 168 H Sodium 155 H Potassium Chloride 114.2 H Carbon Dioxide 14 L BUN 120 H Creatinine 4.6 H Glucose 108 H POC Glucose Lactic Acid Calcium 7.7 L Phosphorus Magnesium Total Bilirubin 4.50 H AST 105 H C-Reactive Protein Total Protein Albumin 2.4 L Urine Creatinine 38.6 H Ur Creatinine 24 Hour Crossmatch 02/26/18 02/26/18 02/26/18 18:41 20:50 20:50 WBC RBC Hgb Hct MCV MCHC RDW Plt Count Lymph % (Auto) [place] % (Auto) Lymph # Seg Neutrophils % Seg Neuts % (Manual) Lymphocytes % (Manual) Monocytes % (Manual) Nucleated RBC % Seg Neutrophils # Seg Neutrophils # Man Lymphocytes # (Manual) Monocytes # (Manual) PT 21.5 H INR 1.75 H POC ABG pH POC ABG pCO2 POC ABG pO2 Sodium Potassium Chloride Carbon Dioxide BUN Creatinine Glucose POC Glucose 135 H Lactic Acid Calcium Phosphorus Magnesium Total Bilirubin AST C-Reactive Protein 33.90 H Total Protein Albumin Urine Creatinine Ur Creatinine 24 Hour Crossmatch 02/27/18 02/27/18 02/27/18 03:39 04:56 04:56 WBC 20.1 H RBC 2.92 L Hgb 8.4 L Hct 27.5 L MCV MCHC 31 L RDW 17.1 H Plt Count Lymph % (Auto) [place] % (Auto) Lymph # Seg Neutrophils % Seg Neuts % (Manual) 92.0 H Lymphocytes % (Manual) 3.0 L Monocytes % (Manual) Nucleated RBC % Seg Neutrophils # Seg Neutrophils # Man 18.5 H Lymphocytes # (Manual) 0.6 L Monocytes # (Manual) PT INR POC ABG pH 7.453 H POC ABG pCO2 27.2 L POC ABG pO2 Sodium 149 H Potassium Chloride 113.1 H Carbon Dioxide 18 L BUN 103 H Creatinine 3.8 H Glucose 120 H POC Glucose Lactic Acid Calcium 7.8 L Phosphorus Magnesium Total Bilirubin AST C-Reactive Protein Total Protein Albumin Urine Creatinine Ur Creatinine 24 Hour Crossmatch 02/27/18 02/27/18 02/27/18 12:37 12:45 17:51 WBC RBC Hgb Hct MCV MCHC RDW Plt Count Lymph % (Auto) [place] % (Auto) Lymph # Seg Neutrophils % Seg Neuts % (Manual) Lymphocytes % (Manual) Monocytes % (Manual) Nucleated RBC % Seg Neutrophils # Seg Neutrophils # Man Lymphocytes # (Manual) Monocytes # (Manual) PT INR POC ABG pH POC ABG pCO2 POC ABG pO2 Sodium Potassium Chloride Carbon Dioxide BUN Creatinine Glucose POC Glucose 169 H 133 H Lactic Acid 2.90 H* Calcium Phosphorus Magnesium Total Bilirubin AST C-Reactive Protein Total Protein Albumin Urine Creatinine Ur Creatinine 24 Hour Crossmatch 02/28/18 02/28/18 02/28/18 00:23 05:00 05:02 WBC RBC Hgb Hct MCV MCHC RDW Plt Count Lymph % (Auto) [place] % (Auto) Lymph # Seg Neutrophils % Seg Neuts % (Manual) Lymphocytes % (Manual) Monocytes % (Manual) Nucleated RBC % Seg Neutrophils # Seg Neutrophils # Man Lymphocytes # (Manual) Monocytes # (Manual) PT INR POC ABG pH POC ABG pCO2 POC ABG pO2 Sodium Potassium Chloride Carbon Dioxide BUN Creatinine Glucose POC Glucose 161 H 116 H Lactic Acid 2.70 H* Calcium Phosphorus Magnesium Total Bilirubin AST C-Reactive Protein Total Protein Albumin Urine Creatinine Ur Creatinine 24 Hour Crossmatch 02/28/18 02/28/18 02/28/18 05:28 07:04 09:00 WBC 22.3 H RBC 2.63 L Hgb 7.6 L Hct 24.1 L MCV MCHC 31 L RDW 17.4 H Plt Count Lymph % (Auto) [place] % (Auto) Lymph # Seg Neutrophils % Seg Neuts % (Manual) 84.0 H Lymphocytes % (Manual) 8.0 L Monocytes % (Manual) Nucleated RBC % Seg Neutrophils # Seg Neutrophils # Man 18.7 H Lymphocytes # (Manual) Monocytes # (Manual) 1.1 H PT INR POC ABG pH 7.477 H POC ABG pCO2 24.6 L POC ABG pO2 57 L Sodium Potassium Chloride Carbon Dioxide BUN Creatinine Glucose POC Glucose Lactic Acid 3.10 H* Calcium Phosphorus Magnesium Total Bilirubin AST C-Reactive Protein Total Protein Albumin Urine Creatinine Ur Creatinine 24 Hour Crossmatch 02/28/18 02/28/18 02/28/18 09:00 11:36 17:10 WBC RBC Hgb Hct MCV MCHC RDW Plt Count Lymph % (Auto) [place] % (Auto) Lymph # Seg Neutrophils % Seg Neuts % (Manual) Lymphocytes % (Manual) Monocytes % (Manual) Nucleated RBC % Seg Neutrophils # Seg Neutrophils # Man Lymphocytes # (Manual) Monocytes # (Manual) PT INR POC ABG pH POC ABG pCO2 POC ABG pO2 Sodium Potassium 3.3 L 3.5 L Chloride Carbon Dioxide 21 L 19 L BUN 76 H 69 H Creatinine 2.8 H 2.5 H Glucose 104 H 124 H POC Glucose 107 H Lactic Acid Calcium 7.6 L 7.3 L Phosphorus 1.50 L Magnesium Total Bilirubin AST C-Reactive Protein Total Protein Albumin Urine Creatinine Ur Creatinine 24 Hour Crossmatch 02/28/18 02/28/18 03/01/18 17:36 23:40 06:25 WBC RBC Hgb Hct MCV MCHC RDW Plt Count Lymph % (Auto) [place] % (Auto) Lymph # Seg Neutrophils % Seg Neuts % (Manual) Lymphocytes % (Manual) Monocytes % (Manual) Nucleated RBC % Seg Neutrophils # Seg Neutrophils # Man Lymphocytes # (Manual) Monocytes # (Manual) PT INR POC ABG pH 7.542 H POC ABG pCO2 23.3 L POC ABG pO2 62 L Sodium Potassium Chloride Carbon Dioxide BUN Creatinine Glucose POC Glucose 151 H 111 H Lactic Acid Calcium Phosphorus Magnesium Total Bilirubin AST C-Reactive Protein Total Protein Albumin Urine Creatinine Ur Creatinine 24 Hour Crossmatch 03/01/18 03/01/18 03/02/18 10:00 12:12 05:21 WBC RBC Hgb Hct MCV MCHC RDW Plt Count Lymph % (Auto) [place] % (Auto) Lymph # Seg Neutrophils % Seg Neuts % (Manual) Lymphocytes % (Manual) Monocytes % (Manual) Nucleated RBC % Seg Neutrophils # Seg Neutrophils # Man Lymphocytes # (Manual) Monocytes # (Manual) PT INR POC ABG pH 7.473 H POC ABG pCO2 21.5 L POC ABG pO2 79 L Sodium Potassium 3.5 L Chloride Carbon Dioxide 18 L BUN 66 H Creatinine 2.8 H Glucose 103 H POC Glucose 176 H Lactic Acid Calcium 7.5 L Phosphorus Magnesium Total Bilirubin AST C-Reactive Protein Total Protein Albumin Urine Creatinine Ur Creatinine 24 Hour Crossmatch 03/02/18 03/02/18 03/02/18 06:00 06:00 11:47 WBC 18.2 H RBC 2.43 L Hgb 7.2 L Hct 22.6 L MCV MCHC RDW 17.6 H Plt Count Lymph % (Auto) [place] % (Auto) Lymph # Seg Neutrophils % Seg Neuts % (Manual) Lymphocytes % (Manual) Monocytes % (Manual) Nucleated RBC % Seg Neutrophils # Seg Neutrophils # Man Lymphocytes # (Manual) Monocytes # (Manual) PT INR POC ABG pH POC ABG pCO2 POC ABG pO2 Sodium Potassium Chloride Carbon Dioxide 17 L BUN 68 H Creatinine 3.1 H Glucose 106 H POC Glucose 136 H Lactic Acid Calcium 7.2 L Phosphorus Magnesium Total Bilirubin AST C-Reactive Protein Total Protein Albumin Urine Creatinine Ur Creatinine 24 Hour Crossmatch 03/02/18 03/03/18 03/03/18 17:35 00:54 03:38 WBC RBC Hgb Hct MCV MCHC RDW Plt Count Lymph % (Auto) [place] % (Auto) Lymph # Seg Neutrophils % Seg Neuts % (Manual) Lymphocytes % (Manual) Monocytes % (Manual) Nucleated RBC % Seg Neutrophils # Seg Neutrophils # Man Lymphocytes # (Manual) Monocytes # (Manual) PT INR POC ABG pH 7.451 H POC ABG pCO2 20.5 L POC ABG pO2 Sodium Potassium Chloride Carbon Dioxide BUN Creatinine Glucose POC Glucose 109 H 131 H Lactic Acid Calcium Phosphorus Magnesium Total Bilirubin AST C-Reactive Protein Total Protein Albumin Urine Creatinine Ur Creatinine 24 Hour Crossmatch 03/03/18 03/03/18 03/03/18 04:30 06:15 06:15 WBC 21.1 H RBC 2.20 L Hgb 6.3 L Hct 20.8 L MCV 95 H MCHC 30 L RDW 17.8 H Plt Count Lymph % (Auto) [place] % (Auto) Lymph # Seg Neutrophils % Seg Neuts % (Manual) 71.0 H Lymphocytes % (Manual) 8.0 L Monocytes % (Manual) Nucleated RBC % Seg Neutrophils # Seg Neutrophils # Man 15.0 H Lymphocytes # (Manual) Monocytes # (Manual) 1.3 H PT INR POC ABG pH POC ABG pCO2 POC ABG pO2 Sodium 130 L D Potassium Chloride 96.4 L Carbon Dioxide 14 L BUN 69 H Creatinine 3.1 H Glucose POC Glucose Lactic Acid Calcium 7.0 L Phosphorus 5.10 H Magnesium Total Bilirubin AST C-Reactive Protein Total Protein Albumin Urine Creatinine Ur Creatinine 24 Hour Crossmatch 03/03/18 03/03/18 03/03/18 08:37 09:38 12:13 WBC RBC Hgb Hct MCV MCHC RDW Plt Count Lymph % (Auto) [place] % (Auto) Lymph # Seg Neutrophils % Seg Neuts % (Manual) Lymphocytes % (Manual) Monocytes % (Manual) Nucleated RBC % Seg Neutrophils # Seg Neutrophils # Man Lymphocytes # (Manual) Monocytes # (Manual) PT INR POC ABG pH POC ABG pCO2 23.8 L POC ABG pO2 156 H Sodium Potassium Chloride Carbon Dioxide BUN Creatinine Glucose POC Glucose 119 H Lactic Acid Calcium Phosphorus Magnesium Total Bilirubin AST C-Reactive Protein Total Protein Albumin Urine Creatinine Ur Creatinine 24 Hour Crossmatch See Detail 03/03/18 03/03/18 03/04/18 12:37 18:05 00:59 WBC RBC Hgb Hct MCV MCHC RDW Plt Count Lymph % (Auto) [place] % (Auto) Lymph # Seg Neutrophils % Seg Neuts % (Manual) Lymphocytes % (Manual) Monocytes % (Manual) Nucleated RBC % Seg Neutrophils # Seg Neutrophils # Man Lymphocytes # (Manual) Monocytes # (Manual) PT INR POC ABG pH POC ABG pCO2 POC ABG pO2 Sodium Potassium Chloride Carbon Dioxide BUN Creatinine Glucose POC Glucose 154 H 159 H Lactic Acid Calcium Phosphorus Magnesium 1.40 L Total Bilirubin AST C-Reactive Protein Total Protein Albumin Urine Creatinine Ur Creatinine 24 Hour Crossmatch 03/04/18 03/04/18 03/04/18 04:27 05:30 05:30 WBC 22.6 H RBC 2.46 L Hgb 7.1 L Hct 21.7 L MCV MCHC RDW 17.2 H Plt Count Lymph % (Auto) [place] % (Auto) Lymph # Seg Neutrophils % Seg Neuts % (Manual) 84.0 H Lymphocytes % (Manual) 5.0 L Monocytes % (Manual) Nucleated RBC % Seg Neutrophils # Seg Neutrophils # Man 19.0 H Lymphocytes # (Manual) 1.1 L Monocytes # (Manual) PT INR POC ABG pH 7.486 H POC ABG pCO2 24.8 L POC ABG pO2 Sodium 135 L Potassium Chloride 96.2 L Carbon Dioxide 19 L BUN 69 H Creatinine 3.1 H Glucose 121 H POC Glucose Lactic Acid Calcium 7.1 L Phosphorus Magnesium Total Bilirubin AST C-Reactive Protein 19.80 H Total Protein Albumin Urine Creatinine Ur Creatinine 24 Hour Crossmatch 03/04/18 03/04/18 03/04/18 05:38 11:47 17:53 WBC RBC Hgb Hct MCV MCHC RDW Plt Count Lymph % (Auto) [place] % (Auto) Lymph # Seg Neutrophils % Seg Neuts % (Manual) Lymphocytes % (Manual) Monocytes % (Manual) Nucleated RBC % Seg Neutrophils # Seg Neutrophils # Man Lymphocytes # (Manual) Monocytes # (Manual) PT INR POC ABG pH POC ABG pCO2 POC ABG pO2 Sodium Potassium Chloride Carbon Dioxide BUN Creatinine Glucose POC Glucose 134 H 109 H 113 H Lactic Acid Calcium Phosphorus Magnesium Total Bilirubin AST C-Reactive Protein Total Protein Albumin Urine Creatinine Ur Creatinine 24 Hour Crossmatch 03/05/18 03/05/18 03/05/18 00:22 05:15 05:15 WBC 24.3 H RBC 2.29 L Hgb 6.8 L Hct 20.3 L MCV MCHC RDW 16.7 H Plt Count Lymph % (Auto) [place] % (Auto) Lymph # Seg Neutrophils % Seg Neuts % (Manual) 88.0 H Lymphocytes % (Manual) 3.0 L Monocytes % (Manual) Nucleated RBC % Seg Neutrophils # Seg Neutrophils # Man 21.4 H Lymphocytes # (Manual) 0.7 L Monocytes # (Manual) PT INR POC ABG pH POC ABG pCO2 POC ABG pO2 Sodium 132 L Potassium Chloride 91.2 L Carbon Dioxide BUN 69 H Creatinine 3.3 H Glucose POC Glucose 113 H Lactic Acid Calcium 6.9 L Phosphorus Magnesium Total Bilirubin AST C-Reactive Protein Total Protein Albumin Urine Creatinine Ur Creatinine 24 Hour Crossmatch 03/05/18 03/05/18 03/05/18 05:36 11:51 16:00 WBC RBC Hgb Hct MCV MCHC RDW Plt Count Lymph % (Auto) [place] % (Auto) Lymph # Seg Neutrophils % Seg Neuts % (Manual) Lymphocytes % (Manual) Monocytes % (Manual) Nucleated RBC % Seg Neutrophils # Seg Neutrophils # Man Lymphocytes # (Manual) Monocytes # (Manual) PT INR POC ABG pH 7.519 H POC ABG pCO2 27.0 L POC ABG pO2 68 L Sodium Potassium Chloride Carbon Dioxide BUN Creatinine Glucose POC Glucose 118 H 131 H Lactic Acid Calcium Phosphorus Magnesium Total Bilirubin AST C-Reactive Protein Total Protein Albumin Urine Creatinine Ur Creatinine 24 Hour Crossmatch 03/06/18 03/06/18 03/06/18 00:00 01:27 04:44 WBC 24.5 H RBC 2.90 L Hgb 8.5 L Hct 25.8 L MCV MCHC RDW 16.3 H Plt Count Lymph % (Auto) [place] % (Auto) Lymph # Seg Neutrophils % Seg Neuts % (Manual) 96.0 H Lymphocytes % (Manual) 1.5 L Monocytes % (Manual) Nucleated RBC % 1.0 H Seg Neutrophils # Seg Neutrophils # Man 23.5 H Lymphocytes # (Manual) 0.4 L Monocytes # (Manual) PT INR POC ABG pH POC ABG pCO2 POC ABG pO2 Sodium Potassium Chloride 92.9 L Carbon Dioxide BUN 67 H Creatinine 3.4 H Glucose POC Glucose 127 H Lactic Acid Calcium 7.2 L Phosphorus Magnesium Total Bilirubin AST C-Reactive Protein Total Protein Albumin Urine Creatinine Ur Creatinine 24 Hour Crossmatch 03/06/18 03/06/18 03/06/18 04:54 05:54 12:08 WBC RBC Hgb Hct MCV MCHC RDW Plt Count Lymph % (Auto) [place] % (Auto) Lymph # Seg Neutrophils % Seg Neuts % (Manual) Lymphocytes % (Manual) Monocytes % (Manual) Nucleated RBC % Seg Neutrophils # Seg Neutrophils # Man Lymphocytes # (Manual) Monocytes # (Manual) PT INR POC ABG pH 7.551 H POC ABG pCO2 29.5 L POC ABG pO2 57 L Sodium Potassium Chloride Carbon Dioxide BUN Creatinine Glucose POC Glucose 108 H 123 H Lactic Acid Calcium Phosphorus Magnesium Total Bilirubin AST C-Reactive Protein Total Protein Albumin Urine Creatinine Ur Creatinine 24 Hour Crossmatch 03/06/18 03/07/18 03/07/18 21:16 05:00 05:00 WBC 17.5 H RBC 2.41 L Hgb 7.3 L Hct 21.5 L MCV MCHC RDW 16.6 H Plt Count Lymph % (Auto) [place] % (Auto) Lymph # Seg Neutrophils % Seg Neuts % (Manual) 97.0 H Lymphocytes % (Manual) 1.0 L Monocytes % (Manual) Nucleated RBC % Seg Neutrophils # Seg Neutrophils # Man 17.0 H Lymphocytes # (Manual) 0.2 L Monocytes # (Manual) PT INR POC ABG pH 7.639 H POC ABG pCO2 25.3 L POC ABG pO2 Sodium Potassium Chloride 90.6 L Carbon Dioxide BUN 65 H Creatinine 3.4 H Glucose POC Glucose Lactic Acid Calcium 7.3 L Phosphorus Magnesium Total Bilirubin AST C-Reactive Protein Total Protein Albumin Urine Creatinine Ur Creatinine 24 Hour Crossmatch 03/07/18 03/08/18 03/08/18 06:32 04:30 11:54 WBC 13.9 H RBC 2.36 L Hgb 7.1 L Hct 21.2 L MCV MCHC RDW 16.5 H Plt Count Lymph % (Auto) [place] % (Auto) Lymph # Seg Neutrophils % Seg Neuts % (Manual) 91.0 H Lymphocytes % (Manual) 2.0 L Monocytes % (Manual) Nucleated RBC % Seg Neutrophils # Seg Neutrophils # Man 12.6 H Lymphocytes # (Manual) 0.3 L Monocytes # (Manual) PT INR POC ABG pH 7.498 H POC ABG pCO2 30.2 L POC ABG pO2 44 L Sodium Potassium Chloride Carbon Dioxide BUN Creatinine Glucose POC Glucose 121 H Lactic Acid Calcium Phosphorus Magnesium Total Bilirubin AST C-Reactive Protein Total Protein Albumin Urine Creatinine Ur Creatinine 24 Hour Crossmatch 03/08/18 03/08/18 03/09/18 18:29 23:52 05:45 WBC 12.9 H RBC 2.31 L Hgb 6.9 L Hct 20.9 L MCV MCHC RDW 16.7 H Plt Count Lymph % (Auto) 5.5 L [place] % (Auto) Lymph # 0.7 L Seg Neutrophils % 89.2 H Seg Neuts % (Manual) Lymphocytes % (Manual) Monocytes % (Manual) Nucleated RBC % Seg Neutrophils # 11.5 H Seg Neutrophils # Man Lymphocytes # (Manual) Monocytes # (Manual) PT INR POC ABG pH POC ABG pCO2 POC ABG pO2 Sodium Potassium Chloride Carbon Dioxide BUN Creatinine Glucose POC Glucose 106 H 115 H Lactic Acid Calcium Phosphorus Magnesium Total Bilirubin AST C-Reactive Protein Total Protein Albumin Urine Creatinine Ur Creatinine 24 Hour Crossmatch 03/09/18 03/09/18 03/09/18 06:13 12:00 12:20 WBC RBC Hgb Hct MCV MCHC RDW Plt Count Lymph % (Auto) [place] % (Auto) Lymph # Seg Neutrophils % Seg Neuts % (Manual) Lymphocytes % (Manual) Monocytes % (Manual) Nucleated RBC % Seg Neutrophils # Seg Neutrophils # Man Lymphocytes # (Manual) Monocytes # (Manual) PT INR POC ABG pH POC ABG pCO2 POC ABG pO2 Sodium Potassium 3.3 L Chloride 82.2 L Carbon Dioxide 19 L D BUN 62 H Creatinine 3.0 H Glucose POC Glucose 122 H 113 H Lactic Acid Calcium 6.1 L D Phosphorus Magnesium Total Bilirubin AST C-Reactive Protein Total Protein Albumin Urine Creatinine Ur Creatinine 24 Hour Crossmatch 03/09/18 03/09/18 03/10/18 13:30 17:38 06:55 WBC RBC 1.94 L Hgb 6.0 L Hct 17.8 L* MCV MCHC RDW 16.6 H Plt Count Lymph % (Auto) 4.6 L [place] % (Auto) Lymph # 0.5 L Seg Neutrophils % 90.0 H Seg Neuts % (Manual) Lymphocytes % (Manual) Monocytes % (Manual) Nucleated RBC % Seg Neutrophils # 9.1 H Seg Neutrophils # Man Lymphocytes # (Manual) Monocytes # (Manual) PT INR POC ABG pH POC ABG pCO2 POC ABG pO2 Sodium Potassium Chloride Carbon Dioxide BUN Creatinine Glucose POC Glucose Lactic Acid Calcium Phosphorus Magnesium Total Bilirubin AST C-Reactive Protein Total Protein Albumin Urine Creatinine 69.2 H 69.2 H Ur Creatinine 24 Hour 0.3 L Crossmatch 03/10/18 03/10/18 03/10/18 06:55 09:00 12:14 WBC RBC Hgb Hct MCV MCHC RDW Plt Count Lymph % (Auto) [place] % (Auto) Lymph # Seg Neutrophils % Seg Neuts % (Manual) Lymphocytes % (Manual) Monocytes % (Manual) Nucleated RBC % Seg Neutrophils # Seg Neutrophils # Man Lymphocytes # (Manual) Monocytes # (Manual) PT INR POC ABG pH POC ABG pCO2 POC ABG pO2 Sodium 135 L Potassium Chloride 90.2 L Carbon Dioxide BUN 82 H Creatinine 3.9 H Glucose POC Glucose 107 H Lactic Acid Calcium 7.6 L D Phosphorus Magnesium Total Bilirubin AST C-Reactive Protein Total Protein Albumin Urine Creatinine Ur Creatinine 24 Hour Crossmatch See Detail 03/10/18 03/10/18 03/11/18 18:14 20:02 14:25 WBC RBC Hgb 7.7 L Hct 23.3 L MCV MCHC RDW Plt Count Lymph % (Auto) [place] % (Auto) Lymph # Seg Neutrophils % Seg Neuts % (Manual) Lymphocytes % (Manual) Monocytes % (Manual) Nucleated RBC % Seg Neutrophils # Seg Neutrophils # Man Lymphocytes # (Manual) Monocytes # (Manual) PT INR POC ABG pH POC ABG pCO2 POC ABG pO2 Sodium Potassium Chloride 94.6 L Carbon Dioxide BUN 69 H Creatinine 3.7 H Glucose POC Glucose 126 H Lactic Acid Calcium 8.0 L Phosphorus Magnesium Total Bilirubin AST C-Reactive Protein Total Protein Albumin Urine Creatinine Ur Creatinine 24 Hour Crossmatch 03/12/18 03/12/18 03/12/18 04:19 05:45 05:45 WBC RBC 2.44 L Hgb 7.4 L Hct 22.6 L MCV MCHC RDW 16.1 H Plt Count Lymph % (Auto) [place] % (Auto) Lymph # Seg Neutrophils % Seg Neuts % (Manual) Lymphocytes % (Manual) Monocytes % (Manual) Nucleated RBC % Seg Neutrophils # Seg Neutrophils # Man Lymphocytes # (Manual) Monocytes # (Manual) PT INR POC ABG pH POC ABG pCO2 POC ABG pO2 71 L Sodium Potassium Chloride 95.1 L Carbon Dioxide BUN 72 H Creatinine 4.0 H Glucose POC Glucose Lactic Acid Calcium 7.9 L Phosphorus Magnesium Total Bilirubin AST C-Reactive Protein Total Protein Albumin Urine Creatinine Ur Creatinine 24 Hour Crossmatch 03/13/18 03/13/18 03/13/18 06:30 12:38 18:32 WBC RBC Hgb Hct MCV MCHC RDW Plt Count Lymph % (Auto) [place] % (Auto) Lymph # Seg Neutrophils % Seg Neuts % (Manual) Lymphocytes % (Manual) Monocytes % (Manual) Nucleated RBC % Seg Neutrophils # Seg Neutrophils # Man Lymphocytes # (Manual) Monocytes # (Manual) PT INR POC ABG pH 7.287 L POC ABG pCO2 54.6 H POC ABG pO2 78 L Sodium 136 L Potassium Chloride 91.8 L Carbon Dioxide BUN 76 H Creatinine 4.1 H Glucose POC Glucose 106 H Lactic Acid Calcium 8.0 L Phosphorus Magnesium Total Bilirubin AST C-Reactive Protein Total Protein Albumin Urine Creatinine Ur Creatinine 24 Hour Crossmatch 03/13/18 03/14/18 03/14/18 23:34 05:30 05:30 WBC RBC Hgb Hct MCV MCHC RDW Plt Count Lymph % (Auto) [place] % (Auto) Lymph # Seg Neutrophils % Seg Neuts % (Manual) Lymphocytes % (Manual) Monocytes % (Manual) Nucleated RBC % Seg Neutrophils # Seg Neutrophils # Man Lymphocytes # (Manual) Monocytes # (Manual) PT INR POC ABG pH POC ABG pCO2 POC ABG pO2 Sodium 135 L Potassium Chloride 87.4 L Carbon Dioxide BUN 60 H Creatinine 3.7 H Glucose 102 H POC Glucose 111 H Lactic Acid Calcium 7.9 L Phosphorus Magnesium 1.60 L Total Bilirubin AST C-Reactive Protein Total Protein Albumin Urine Creatinine Ur Creatinine 24 Hour Crossmatch 03/14/18 03/14/18 03/14/18 08:30 12:10 13:02 WBC RBC 2.58 L Hgb 7.9 L Hct 24.2 L MCV MCHC RDW 16.0 H Plt Count Lymph % (Auto) [place] % (Auto) Lymph # Seg Neutrophils % Seg Neuts % (Manual) Lymphocytes % (Manual) Monocytes % (Manual) Nucleated RBC % Seg Neutrophils # Seg Neutrophils # Man Lymphocytes # (Manual) Monocytes # (Manual) PT INR POC ABG pH POC ABG pCO2 POC ABG pO2 43 L Sodium Potassium Chloride Carbon Dioxide BUN Creatinine Glucose POC Glucose 118 H Lactic Acid Calcium Phosphorus Magnesium Total Bilirubin AST C-Reactive Protein Total Protein Albumin Urine Creatinine Ur Creatinine 24 Hour Crossmatch 03/14/18 03/14/18 03/15/18 13:10 18:05 06:45 WBC RBC 2.39 L Hgb 7.2 L Hct 22.0 L MCV MCHC RDW 16.2 H Plt Count 130 L Lymph % (Auto) 8.7 L [place] % (Auto) 8.7 H Lymph # 0.8 L Seg Neutrophils % 81.5 H Seg Neuts % (Manual) Lymphocytes % (Manual) Monocytes % (Manual) Nucleated RBC % Seg Neutrophils # Seg Neutrophils # Man Lymphocytes # (Manual) Monocytes # (Manual) PT INR POC ABG pH 7.483 H POC ABG pCO2 30.7 L POC ABG pO2 55 L Sodium Potassium Chloride Carbon Dioxide BUN Creatinine Glucose POC Glucose 129 H Lactic Acid Calcium Phosphorus Magnesium Total Bilirubin AST C-Reactive Protein Total Protein Albumin Urine Creatinine Ur Creatinine 24 Hour Crossmatch 03/15/18 06:45 WBC RBC Hgb Hct MCV MCHC RDW Plt Count Lymph % (Auto) [place] % (Auto) Lymph # Seg Neutrophils % Seg Neuts % (Manual) Lymphocytes % (Manual) Monocytes % (Manual) Nucleated RBC % Seg Neutrophils # Seg Neutrophils # Man Lymphocytes # (Manual) Monocytes # (Manual) PT INR POC ABG pH POC ABG pCO2 POC ABG pO2 Sodium 133 L Potassium Chloride 90.7 L Carbon Dioxide BUN 64 H Creatinine 4.7 H Glucose 118 H POC Glucose Lactic Acid Calcium 7.9 L Phosphorus Magnesium Total Bilirubin AST 55 H C-Reactive Protein Total Protein 6.2 L Albumin 2.8 L Urine Creatinine Ur Creatinine 24 Hour Crossmatch Allied health notes reviewed: RT
[2018-03-15] MEDS ORDERED: NACL 0.9% 250ML 250 ML IV ONE (16:52)
[2018-03-15] MEDS ORDERED: ALBURX 25% (ALBUMIN) IV ONE (16:53)
[2018-03-15] MEDS ORDERED: NACL 0.9% 1000 ML 1,000 ML IV SCH (18:00)
[2018-03-15] MEDS ORDERED: ADRENALIN ONE (19:30)
[2018-03-16] MEDS: HumuLIN R SUB-Q SCH ×4 (02:50→18:25)
[2018-03-16] MEDS: CORDARONE 900 MG in D5W 482 ML IV SCH (03:41)
[2018-03-16 06:52] LABS: Hematocrit 22.5 % (35.5-45.6); Hemoglobin 7.5 gm/dl (11.8-15.2); Mean Corpuscular HGB Conc 33 % (32-34); Mean Corpuscular Hemoglobin 31 pg (28-32); Mean Corpuscular Volume 93 fl (84-94); Platelet Count 166 K/mm3 (140-440); Red Blood Count 2.43 M/mm3 (3.65-5.03); Red Cell Distribution Width 16.3 % (13.2-15.2)
[2018-03-16 07:08] LABS: Albumin 2.8 g/dL (3.9-5); Bilirubin,Direct 0.5 mg/dL (0-0.2)
[2018-03-16] MEDS: DUONEB *Not for PRN Use IH SCH ×2 (08:06→18:09)
[2018-03-16] MEDS: Vasostrict 20 UNIT in NACL 0.9% 100 ML IV SCH ×2 (08:29→16:00)
--- NOTE | 2018-03-16 09:00 | Progress Note ---
Assessment and Plan - Patient Problems (1) Acute on chronic renal failure Current Visit: Yes Status: Acute Qualifiers: Acute renal failure type: unspecified Chronic kidney disease stage: unspecified stage Qualified Code(s): N17.9 - Acute kidney failure, unspecified ; N18.9 - Chronic kidney disease, unspecified Plan to address problem: DIANNA/ ATN-S/P cardiorespiratory arrest, Acute respiratory failure, Sepsis- multifactorial, Peripheral edema. Multiple comorbid conditions-poor prognosis. Monitor renal function/ urine output. Adjust meds per renal function. Continue supportive care. HD with UF as tolerated today. Discussed with pt's son at bed side about the prognosis and regarding dialysis. Pt is for tracheostomy tomorrow. Son wants to wait for 1-2 wks , if no improvement-may consider stopping dialysis (2) Acute hypoxemic respiratory failure Current Visit: Yes Status: Acute (3) Pneumonia Current Visit: Yes Status: Acute Qualifiers: Pneumonia type: due to unspecified organism Laterality: left Lung location: lower lobe of lung Qualified Code(s): J18.1 - Lobar pneumonia, unspecified organism (4) Sepsis Current Visit: Yes Status: Acute Qualifiers: Sepsis type: sepsis due to unspecified organism Qualified Code(s): A41.9 - Sepsis, unspecified organism (5) Acute CVA (cerebrovascular accident) Current Visit: No Status: Acute (6) Acute encephalopathy Current Visit: No Status: Acute Subjective Date of service: 03/16/18 Principal diagnosis: Acute Hypoxemic Resp Failure; Severe Sepsis; Aspiration Pneumonai (HCAP) Interval history: pt is orally intubated, on ventilator, Fio2- 50%, sedated. Chart was reviewed, spoke with pt's nurse. clinical condition -same. Non communicative Objective - Vital Signs Vital signs: Vital Signs - 12hr 03/15/18 03/15/18 03/15/18 21:49 22:00 22:35 Temperature Pulse Rate 92 H 94 H 107 H Pulse Rate [ Anterior Bilateral Throughout] Pulse Rate [ Anterior Bilateral] Pulse Rate [ From Monitor] Respiratory 31 H 31 H Rate Respiratory Rate [Anterior Bilateral Throughout] Respiratory Rate [Anterior Bilateral] Respiratory 16 Rate [pt denies ] Blood Pressure 133/87 131/90 126/87 O2 Sat by Pulse 98 100 Oximetry 03/15/18 03/15/18 03/15/18 23:00 23:09 23:22 Temperature 99.5 F Pulse Rate 116 H 111 H Pulse Rate [ Anterior Bilateral Throughout] Pulse Rate [ Anterior Bilateral] Pulse Rate [ From Monitor] Respiratory 26 H Rate Respiratory Rate [Anterior Bilateral Throughout] Respiratory Rate [Anterior Bilateral] Respiratory Rate [pt denies ] Blood Pressure 139/83 139/83 O2 Sat by Pulse 97 100 Oximetry 03/15/18 03/15/18 03/16/18 23:35 23:48 00:00 Temperature Pulse Rate 122 H Pulse Rate [ 107 H 113 H Anterior Bilateral Throughout] Pulse Rate [ Anterior Bilateral] Pulse Rate [ 125 H From Monitor] Respiratory 31 H Rate Respiratory 26 H 28 H Rate [Anterior Bilateral Throughout] Respiratory Rate [Anterior Bilateral] Respiratory Rate [pt denies ] Blood Pressure 140/87 O2 Sat by Pulse 93 Oximetry 03/16/18 03/16/18 03/16/18 01:00 02:00 03:00 Temperature Pulse Rate 126 H 113 H 125 H Pulse Rate [ Anterior Bilateral Throughout] Pulse Rate [ Anterior Bilateral] Pulse Rate [ From Monitor] Respiratory 31 H 33 H 35 H Rate Respiratory Rate [Anterior Bilateral Throughout] Respiratory Rate [Anterior Bilateral] Respiratory Rate [pt denies ] Blood Pressure 134/91 141/97 127/85 O2 Sat by Pulse 95 91 89 Oximetry 03/16/18 03/16/18 03/16/18 03:14 03:54 04:00 Temperature 98.4 F Pulse Rate 115 H 124 H Pulse Rate [ Anterior Bilateral Throughout] Pulse Rate [ Anterior Bilateral] Pulse Rate [ 114 H From Monitor] Respiratory 38 H Rate Respiratory Rate [Anterior Bilateral Throughout] Respiratory Rate [Anterior Bilateral] Respiratory Rate [pt denies ] Blood Pressure 121/78 124/89 O2 Sat by Pulse 97 94 Oximetry 03/16/18 03/16/18 03/16/18 05:00 06:00 07:00 Temperature Pulse Rate 115 H 117 H 117 H Pulse Rate [ Anterior Bilateral Throughout] Pulse Rate [ Anterior Bilateral] Pulse Rate [ From Monitor] Respiratory 33 H 16 29 H Rate Respiratory Rate [Anterior Bilateral Throughout] Respiratory Rate [Anterior Bilateral] Respiratory Rate [pt denies ] Blood Pressure 135/85 129/80 146/41 O2 Sat by Pulse 95 91 91 Oximetry 03/16/18 03/16/18 03/16/18 08:00 08:05 08:07 Temperature 97.4 F L Pulse Rate 119 H 113 H Pulse Rate [ 106 H Anterior Bilateral Throughout] Pulse Rate [ 106 H Anterior Bilateral] Pulse Rate [ From Monitor] Respiratory 32 H 16 Rate Respiratory 36 H Rate [Anterior Bilateral Throughout] Respiratory 36 H Rate [Anterior Bilateral] Respiratory Rate [pt denies ] Blood Pressure 124/85 124/85 O2 Sat by Pulse 90 94 Oximetry 03/16/18 08:21 Temperature Pulse Rate Pulse Rate [ 117 H Anterior Bilateral Throughout] Pulse Rate [ 116 H Anterior Bilateral] Pulse Rate [ From Monitor] Respiratory Rate Respiratory 36 H Rate [Anterior Bilateral Throughout] Respiratory 36 H Rate [Anterior Bilateral] Respiratory Rate [pt denies ] Blood Pressure O2 Sat by Pulse Oximetry - General Appearance General appearance: chronically ill, sedated on ventilator EENT: mucous membranes dry Neck: no JVD Respiratory: Present: Decreased Breath Sounds Cardiology: regular, systolic murmur Musculoskeletal: other (2+edema) - Lab 03/16/18 05:45 03/16/18 05:45 Most recent lab results Calcium 8.0 mg/dL (8.4-10.2) L 03/16/18 05:45 Phosphorus 5.10 mg/dL (2.5-4.5) H 03/03/18 04:30 Magnesium 1.60 mg/dL (1.7-2.3) L 03/14/18 05:30 Urine Creatinine 69.2 mg/dL (0.1-20.0) H 03/09/18 17:38 Urine Sodium 67 mmol/L 02/26/18 13:08
[2018-03-16 09:01] LABS: Band Neutrophils # (Manual) 0.1 K/mm3; Basophils % (Manual) 0 % (0.0-1.8); Eosinophils % (Manual) 0 % (0.0-4.3); Total Cells Counted 100
[2018-03-16 09:09] LABS: Anisocytosis 1+; Hypochromasia 1+
[2018-03-16 09:10] LABS: Platelet Estimate Cons
[2018-03-16] MEDS: HEPARIN SUB-Q SCH ×2 (09:32→21:01)
[2018-03-16] MEDS: BABY ASPIRIN PO SCH (09:32)
[2018-03-16] MEDS: ROBINUL PO SCH ×3 (09:32→20:15)
[2018-03-16] MEDS: PEPCID PO SCH (09:32)
[2018-03-16] MEDS: LOPRESSOR PO SCH (09:32)
[2018-03-16] MEDS: KEPPRA FEEDTUBE SCH ×2 (09:49→18:35)
[2018-03-16] MEDS ORDERED: NACL 0.9% 100 ML IV PRN (10:17)
--- NOTE | 2018-03-16 10:35 | Progress Note ---
Assessment and Plan Due to low BPs, will use IV Amiodarone for his Afib for now (Awaiting Trach). Cont amio gtt and give additional bolus of IV amio. With severe anemia and upcoming trach placement, will be hesitant about full anticoagulation. Repeat CXR. Volume optimization per nephrology - pt for HD today. The patient has been seen in conjunction with Dr. Pittman who agrees with the assessment and plan of care. - Patient Problems (1) Atrial fibrillation with RVR Current Visit: Yes Status: Acute (2) New onset atrial fibrillation Current Visit: Yes Status: Acute (3) Acute hypoxemic respiratory failure Current Visit: Yes Status: Acute (4) Sepsis Current Visit: Yes Status: Acute Qualifiers: Sepsis type: sepsis due to unspecified organism Qualified Code(s): A41.9 - Sepsis, unspecified organism (5) Acute kidney injury superimposed on CKD Current Visit: Yes Status: Acute (6) Anemia Current Visit: Yes Status: Acute Qualifiers: Anemia type: unspecified type Qualified Code(s): D64.9 - Anemia, unspecified Subjective Date of service: 03/16/18 Principal diagnosis: Acute Hypoxemic Resp Failure; Severe Sepsis; Aspiration Pneumonai (HCAP) Interval history: pt remains intubated, nonverbal. in AFib with intermittent RVR. on vaso gtt. no family at bedside. Objective Last Vital Signs Temp 97.4 F L 03/16/18 08:00 Pulse 116 H 03/16/18 08:21 Resp 36 H 03/16/18 08:21 BP 124/85 03/16/18 08:07 Pulse Ox 94 03/16/18 08:07 - Physical Examination General: Other (intubated, nonverbal) HEENT: Positive: EOMI, Normocephaly, Mucus Membranes Moist Neck: Positive: neck supple, trachea midline Cardiac: Positive: irregularly irregular, S1/S2, Tachycardia Lungs: Positive: Decreased Breath Sounds, Wheezes, Rhonchi Neuro: Positive: Other (nonverbal, left hemiplegia) Abdomen: Positive: Soft, Active Bowel Sounds. Negative: Tender Skin: Positive: Clear. Negative: Rash Musculoskeletal: Decreased Range of Motion Extremities: Present: +3 Edema (BLE) - Labs and Meds Cardiac Enzymes 03/16/18 Range/Units 05:45 AST 55 H (5-40) units/L CBC 03/16/18 Range/Units 05:45 WBC 10.3 (4.5-11.0) K/mm3 RBC 2.43 L (3.65-5.03) M/mm3 Hgb 7.5 L (11.8-15.2) gm/dl Hct 22.5 L (35.5-45.6) % Plt Count 166 (140-440) K/mm3 Comprehensive Metabolic Panel 03/16/18 03/16/18 Range/Units 05:45 05:45 Sodium 128 L (137-145) mmol/L Potassium 3.7 (3.6-5.0) mmol/L Chloride 85.4 L (98-107) mmol/L Carbon Dioxide 21 L (22-30) mmol/L BUN 65 H (9-20) mg/dL Creatinine 4.8 H (0.8-1.5) mg/dL Glucose 201 H (75-100) mg/dL Calcium 8.0 L (8.4-10.2) mg/dL Direct Bilirubin 0.5 H (0-0.2) mg/dL Indirect Bilirubin 0.3 mg/dL AST 55 H (5-40) units/L ALT 19 (7-56) units/L Alkaline Phosphatase 112 (35-129) units/L Total Protein 6.3 (6.3-8.2) g/dL Albumin 2.8 L (3.9-5) g/dL - Imaging and Cardiology EKG: image reviewed - Telemetry EKG Rhythm: Atrial Fibrillation - Allied health notes Allied health notes reviewed: RT
--- NOTE | 2018-03-16 11:02 | Progress Note ---
Assessment and Plan Severe sepsis with septic shock. Aspiration pneumonia, healthcare associated. Acute hypoxemic respiratory failure on MVS Atrial fibrillation with RVR Acute/subacute right MCA stroke Acute on chronic encephalopathy. Acute on chronic kidney injury. Anemia. Hyponatremia. Metabolic acidosis/lactic acidosis. Leukocytosis History of hypertension. History of diabetes. History of Alzheimer dementia. 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 The aggregate critical care time was [35] minutes without overlap. Time includes spent on; [x] Data Review and interpretation [x] Patient assessment and monitoring of vital signs [x] Documentation [x] Medication orders and management Subjective Date of service: 03/16/18 Principal diagnosis: Acute Hypoxemic Resp Failure; Severe Sepsis; Aspiration Pneumonai (HCAP) Interval history: Patient is seen today for: Acute Hypoxemic Resp Failure; Severe Sepsis; Aspiration Pneumonia(HCAP), DIANNA Seen and examined. Vitals, labs, medications, chart and imaging reviewed. Overnight events reviewed. Discussed with RT and RN. 24hour events reviewed; nursing and respiratory care staff consulted; remains on MVS; vasopressin resumed yesterday for MAPs in the 50s Got a NS bolus and albumin Afib with RVR requiring amiodarone bolus and infusion; AMS is persistent; no gross bleeding: Currently getting HD Discussed in IDT rounds For trachesotomy placement in the morning Objective Vital Signs - 12hr 03/15/18 03/15/18 03/15/18 23:09 23:22 23:35 Temperature 99.5 F Pulse Rate 111 H Pulse Rate [ 107 H Anterior Bilateral Throughout] Pulse Rate [ Anterior Bilateral] Pulse Rate [ From Monitor] Respiratory Rate Respiratory 26 H Rate [Anterior Bilateral Throughout] Respiratory Rate [Anterior Bilateral] Blood Pressure 139/83 O2 Sat by Pulse 100 Oximetry 03/15/18 03/16/18 03/16/18 23:48 00:00 01:00 Temperature Pulse Rate 122 H 126 H Pulse Rate [ 113 H Anterior Bilateral Throughout] Pulse Rate [ Anterior Bilateral] Pulse Rate [ 125 H From Monitor] Respiratory 31 H 31 H Rate Respiratory 28 H Rate [Anterior Bilateral Throughout] Respiratory Rate [Anterior Bilateral] Blood Pressure 140/87 134/91 O2 Sat by Pulse 93 95 Oximetry 03/16/18 03/16/18 03/16/18 02:00 03:00 03:14 Temperature 98.4 F Pulse Rate 113 H 125 H Pulse Rate [ Anterior Bilateral Throughout] Pulse Rate [ Anterior Bilateral] Pulse Rate [ From Monitor] Respiratory 33 H 35 H Rate Respiratory Rate [Anterior Bilateral Throughout] Respiratory Rate [Anterior Bilateral] Blood Pressure 141/97 127/85 O2 Sat by Pulse 91 89 Oximetry 03/16/18 03/16/18 03/16/18 03:54 04:00 05:00 Temperature Pulse Rate 115 H 124 H 115 H Pulse Rate [ Anterior Bilateral Throughout] Pulse Rate [ Anterior Bilateral] Pulse Rate [ 114 H From Monitor] Respiratory 38 H 33 H Rate Respiratory Rate [Anterior Bilateral Throughout] Respiratory Rate [Anterior Bilateral] Blood Pressure 121/78 124/89 135/85 O2 Sat by Pulse 97 94 95 Oximetry 03/16/18 03/16/18 03/16/18 06:00 07:00 08:00 Temperature 97.4 F L Pulse Rate 117 H 117 H 119 H Pulse Rate [ Anterior Bilateral Throughout] Pulse Rate [ Anterior Bilateral] Pulse Rate [ From Monitor] Respiratory 16 29 H 32 H Rate Respiratory Rate [Anterior Bilateral Throughout] Respiratory Rate [Anterior Bilateral] Blood Pressure 129/80 146/41 124/85 O2 Sat by Pulse 91 91 90 Oximetry 03/16/18 03/16/18 03/16/18 08:05 08:07 08:21 Temperature Pulse Rate 113 H Pulse Rate [ 106 H 117 H Anterior Bilateral Throughout] Pulse Rate [ 106 H 116 H Anterior Bilateral] Pulse Rate [ From Monitor] Respiratory 16 Rate Respiratory 36 H 36 H Rate [Anterior Bilateral Throughout] Respiratory 36 H 36 H Rate [Anterior Bilateral] Blood Pressure 124/85 O2 Sat by Pulse 94 Oximetry Constitutional: appears uncomfortable, other (elderly looking AAM, normocephalic and atraumativ on MVS with increased respiratory effort) Eyes: non-icteric ENT: oropharynx moist, other (ETT 24 cm TERESA) Neck: supple, no lymphadenopathy, no JVD, other (no thyromegaly) Effort: mildly labored Ascultation: Right: diminished breath sounds (base), Bilateral: rales, rhonchi Percussion: Right: dull (base), Bilateral: not dull Cardiovascular: irregular rhythm, other (No R/M, S1,S2) Gastrointestinal: normoactive bowel sounds, soft, non-tender, non-distended, other (+ PEG; No HSM, scrotal edema) Integumentary: other (poor turgor) Extremities: no cyanosis, pulses normal, no ischemia or petechiae, anasarca Neurologic: pupils equal and round, unable to assess Psychiatric: other (unable to assess re: encephalopathy) CBC and BMP: 03/16/18 05:45 03/16/18 05:45 ABG, PT/INR, D-dimer: ABG POC ABG pH 7.483 (7.35-7.45) H 03/14/18 13:10 POC ABG pCO2 30.7 (35-45) L 03/14/18 13:10 POC ABG pO2 55 (80-105) L 03/14/18 13:10 POC ABG HCO3 23.0 03/14/18 13:10 POC ABG Total CO2 24 03/14/18 13:10 POC ABG O2 Sat 91 03/14/18 13:10 PT/INR, D-dimer PT 21.5 Sec. (12.2-14.9) H 02/26/18 20:50 INR 1.75 (0.87-1.13) H 02/26/18 20:50 Abnormal lab findings: Abnormal Labs 02/25/18 02/25/18 02/25/18 23:15 23:15 23:15 WBC 12.3 H RBC 3.56 L Hgb 10.2 L Hct 33.7 L MCV 95 H MCHC 30 L RDW 17.7 H Plt Count Lymph % (Auto) [place] % (Auto) Lymph # Seg Neutrophils % Seg Neuts % (Manual) 35.0 L Lymphocytes % (Manual) 13.0 L Monocytes % (Manual) 8.0 H Nucleated RBC % Seg Neutrophils # Seg Neutrophils # Man Lymphocytes # (Manual) Monocytes # (Manual) 1.0 H PT 20.3 H INR 1.63 H POC ABG pH POC ABG pCO2 POC ABG pO2 Sodium 152 H Potassium Chloride 108.7 H Carbon Dioxide 18 L BUN 136 H Creatinine 5.2 H Glucose POC Glucose Lactic Acid Calcium 8.0 L Phosphorus Magnesium Total Bilirubin 4.50 H Direct Bilirubin AST 83 H C-Reactive Protein Total Protein Albumin 2.7 L Urine Creatinine Ur Creatinine 24 Hour Crossmatch 02/25/18 02/25/18 02/26/18 23:15 23:30 03:06 WBC RBC Hgb Hct MCV MCHC RDW Plt Count Lymph % (Auto) [place] % (Auto) Lymph # Seg Neutrophils % Seg Neuts % (Manual) Lymphocytes % (Manual) Monocytes % (Manual) Nucleated RBC % Seg Neutrophils # Seg Neutrophils # Man Lymphocytes # (Manual) Monocytes # (Manual) PT INR POC ABG pH POC ABG pCO2 25.2 L POC ABG pO2 69 L Sodium Potassium Chloride Carbon Dioxide BUN Creatinine Glucose POC Glucose Lactic Acid 7.00 H* 9.70 H* Calcium Phosphorus Magnesium Total Bilirubin Direct Bilirubin AST C-Reactive Protein Total Protein Albumin Urine Creatinine Ur Creatinine 24 Hour Crossmatch 02/26/18 02/26/18 02/26/18 05:12 05:43 07:39 WBC 23.7 H RBC 3.27 L Hgb 9.3 L Hct 31.1 L MCV 95 H MCHC 30 L RDW 17.4 H Plt Count Lymph % (Auto) [place] % (Auto) Lymph # Seg Neutrophils % Seg Neuts % (Manual) Lymphocytes % (Manual) 2.0 L Monocytes % (Manual) Nucleated RBC % 1.0 H Seg Neutrophils # Seg Neutrophils # Man 16.1 H Lymphocytes # (Manual) 0.5 L Monocytes # (Manual) 1.2 H PT INR POC ABG pH POC ABG pCO2 19.5 L POC ABG pO2 72 L Sodium Potassium Chloride Carbon Dioxide BUN Creatinine Glucose POC Glucose Lactic Acid 8.80 H* Calcium Phosphorus Magnesium Total Bilirubin Direct Bilirubin AST C-Reactive Protein Total Protein Albumin Urine Creatinine Ur Creatinine 24 Hour Crossmatch 02/26/18 02/26/18 02/26/18 07:39 12:06 13:08 WBC RBC Hgb Hct MCV MCHC RDW Plt Count Lymph % (Auto) [place] % (Auto) Lymph # Seg Neutrophils % Seg Neuts % (Manual) Lymphocytes % (Manual) Monocytes % (Manual) Nucleated RBC % Seg Neutrophils # Seg Neutrophils # Man Lymphocytes # (Manual) Monocytes # (Manual) PT INR POC ABG pH POC ABG pCO2 27.8 L POC ABG pO2 168 H Sodium 155 H Potassium Chloride 114.2 H Carbon Dioxide 14 L BUN 120 H Creatinine 4.6 H Glucose 108 H POC Glucose Lactic Acid Calcium 7.7 L Phosphorus Magnesium Total Bilirubin 4.50 H Direct Bilirubin AST 105 H C-Reactive Protein Total Protein Albumin 2.4 L Urine Creatinine 38.6 H Ur Creatinine 24 Hour Crossmatch 02/26/18 02/26/18 02/26/18 18:41 20:50 20:50 WBC RBC Hgb Hct MCV MCHC RDW Plt Count Lymph % (Auto) [place] % (Auto) Lymph # Seg Neutrophils % Seg Neuts % (Manual) Lymphocytes % (Manual) Monocytes % (Manual) Nucleated RBC % Seg Neutrophils # Seg Neutrophils # Man Lymphocytes # (Manual) Monocytes # (Manual) PT 21.5 H INR 1.75 H POC ABG pH POC ABG pCO2 POC ABG pO2 Sodium Potassium Chloride Carbon Dioxide BUN Creatinine Glucose POC Glucose 135 H Lactic Acid Calcium Phosphorus Magnesium Total Bilirubin Direct Bilirubin AST C-Reactive Protein 33.90 H Total Protein Albumin Urine Creatinine Ur Creatinine 24 Hour Crossmatch 02/27/18 02/27/18 02/27/18 03:39 04:56 04:56 WBC 20.1 H RBC 2.92 L Hgb 8.4 L Hct 27.5 L MCV MCHC 31 L RDW 17.1 H Plt Count Lymph % (Auto) [place] % (Auto) Lymph # Seg Neutrophils % Seg Neuts % (Manual) 92.0 H Lymphocytes % (Manual) 3.0 L Monocytes % (Manual) Nucleated RBC % Seg Neutrophils # Seg Neutrophils # Man 18.5 H Lymphocytes # (Manual) 0.6 L Monocytes # (Manual) PT INR POC ABG pH 7.453 H POC ABG pCO2 27.2 L POC ABG pO2 Sodium 149 H Potassium Chloride 113.1 H Carbon Dioxide 18 L BUN 103 H Creatinine 3.8 H Glucose 120 H POC Glucose Lactic Acid Calcium 7.8 L Phosphorus Magnesium Total Bilirubin Direct Bilirubin AST C-Reactive Protein Total Protein Albumin Urine Creatinine Ur Creatinine 24 Hour Crossmatch 02/27/18 02/27/18 02/27/18 12:37 12:45 17:51 WBC RBC Hgb Hct MCV MCHC RDW Plt Count Lymph % (Auto) [place] % (Auto) Lymph # Seg Neutrophils % Seg Neuts % (Manual) Lymphocytes % (Manual) Monocytes % (Manual) Nucleated RBC % Seg Neutrophils # Seg Neutrophils # Man Lymphocytes # (Manual) Monocytes # (Manual) PT INR POC ABG pH POC ABG pCO2 POC ABG pO2 Sodium Potassium Chloride Carbon Dioxide BUN Creatinine Glucose POC Glucose 169 H 133 H Lactic Acid 2.90 H* Calcium Phosphorus Magnesium Total Bilirubin Direct Bilirubin AST C-Reactive Protein Total Protein Albumin Urine Creatinine Ur Creatinine 24 Hour Crossmatch 02/28/18 02/28/18 02/28/18 00:23 05:00 05:02 WBC RBC Hgb Hct MCV MCHC RDW Plt Count Lymph % (Auto) [place] % (Auto) Lymph # Seg Neutrophils % Seg Neuts % (Manual) Lymphocytes % (Manual) Monocytes % (Manual) Nucleated RBC % Seg Neutrophils # Seg Neutrophils # Man Lymphocytes # (Manual) Monocytes # (Manual) PT INR POC ABG pH POC ABG pCO2 POC ABG pO2 Sodium Potassium Chloride Carbon Dioxide BUN Creatinine Glucose POC Glucose 161 H 116 H Lactic Acid 2.70 H* Calcium Phosphorus Magnesium Total Bilirubin Direct Bilirubin AST C-Reactive Protein Total Protein Albumin Urine Creatinine Ur Creatinine 24 Hour Crossmatch 02/28/18 02/28/18 02/28/18 05:28 07:04 09:00 WBC 22.3 H RBC 2.63 L Hgb 7.6 L Hct 24.1 L MCV MCHC 31 L RDW 17.4 H Plt Count Lymph % (Auto) [place] % (Auto) Lymph # Seg Neutrophils % Seg Neuts % (Manual) 84.0 H Lymphocytes % (Manual) 8.0 L Monocytes % (Manual) Nucleated RBC % Seg Neutrophils # Seg Neutrophils # Man 18.7 H Lymphocytes # (Manual) Monocytes # (Manual) 1.1 H PT INR POC ABG pH 7.477 H POC ABG pCO2 24.6 L POC ABG pO2 57 L Sodium Potassium Chloride Carbon Dioxide BUN Creatinine Glucose POC Glucose Lactic Acid 3.10 H* Calcium Phosphorus Magnesium Total Bilirubin Direct Bilirubin AST C-Reactive Protein Total Protein Albumin Urine Creatinine Ur Creatinine 24 Hour Crossmatch 02/28/18 02/28/18 02/28/18 09:00 11:36 17:10 WBC RBC Hgb Hct MCV MCHC RDW Plt Count Lymph % (Auto) [place] % (Auto) Lymph # Seg Neutrophils % Seg Neuts % (Manual) Lymphocytes % (Manual) Monocytes % (Manual) Nucleated RBC % Seg Neutrophils # Seg Neutrophils # Man Lymphocytes # (Manual) Monocytes # (Manual) PT INR POC ABG pH POC ABG pCO2 POC ABG pO2 Sodium Potassium 3.3 L 3.5 L Chloride Carbon Dioxide 21 L 19 L BUN 76 H 69 H Creatinine 2.8 H 2.5 H Glucose 104 H 124 H POC Glucose 107 H Lactic Acid Calcium 7.6 L 7.3 L Phosphorus 1.50 L Magnesium Total Bilirubin Direct Bilirubin AST C-Reactive Protein Total Protein Albumin Urine Creatinine Ur Creatinine 24 Hour Crossmatch 02/28/18 02/28/18 03/01/18 17:36 23:40 06:25 WBC RBC Hgb Hct MCV MCHC RDW Plt Count Lymph % (Auto) [place] % (Auto) Lymph # Seg Neutrophils % Seg Neuts % (Manual) Lymphocytes % (Manual) Monocytes % (Manual) Nucleated RBC % Seg Neutrophils # Seg Neutrophils # Man Lymphocytes # (Manual) Monocytes # (Manual) PT INR POC ABG pH 7.542 H POC ABG pCO2 23.3 L POC ABG pO2 62 L Sodium Potassium Chloride Carbon Dioxide BUN Creatinine Glucose POC Glucose 151 H 111 H Lactic Acid Calcium Phosphorus Magnesium Total Bilirubin Direct Bilirubin AST C-Reactive Protein Total Protein Albumin Urine Creatinine Ur Creatinine 24 Hour Crossmatch 03/01/18 03/01/18 03/02/18 10:00 12:12 05:21 WBC RBC Hgb Hct MCV MCHC RDW Plt Count Lymph % (Auto) [place] % (Auto) Lymph # Seg Neutrophils % Seg Neuts % (Manual) Lymphocytes % (Manual) Monocytes % (Manual) Nucleated RBC % Seg Neutrophils # Seg Neutrophils # Man Lymphocytes # (Manual) Monocytes # (Manual) PT INR POC ABG pH 7.473 H POC ABG pCO2 21.5 L POC ABG pO2 79 L Sodium Potassium 3.5 L Chloride Carbon Dioxide 18 L BUN 66 H Creatinine 2.8 H Glucose 103 H POC Glucose 176 H Lactic Acid Calcium 7.5 L Phosphorus Magnesium Total Bilirubin Direct Bilirubin AST C-Reactive Protein Total Protein Albumin Urine Creatinine Ur Creatinine 24 Hour Crossmatch 03/02/18 03/02/18 03/02/18 06:00 06:00 11:47 WBC 18.2 H RBC 2.43 L Hgb 7.2 L Hct 22.6 L MCV MCHC RDW 17.6 H Plt Count Lymph % (Auto) [place] % (Auto) Lymph # Seg Neutrophils % Seg Neuts % (Manual) Lymphocytes % (Manual) Monocytes % (Manual) Nucleated RBC % Seg Neutrophils # Seg Neutrophils # Man Lymphocytes # (Manual) Monocytes # (Manual) PT INR POC ABG pH POC ABG pCO2 POC ABG pO2 Sodium Potassium Chloride Carbon Dioxide 17 L BUN 68 H Creatinine 3.1 H Glucose 106 H POC Glucose 136 H Lactic Acid Calcium 7.2 L Phosphorus Magnesium Total Bilirubin Direct Bilirubin AST C-Reactive Protein Total Protein Albumin Urine Creatinine Ur Creatinine 24 Hour Crossmatch 03/02/18 03/03/18 03/03/18 17:35 00:54 03:38 WBC RBC Hgb Hct MCV MCHC RDW Plt Count Lymph % (Auto) [place] % (Auto) Lymph # Seg Neutrophils % Seg Neuts % (Manual) Lymphocytes % (Manual) Monocytes % (Manual) Nucleated RBC % Seg Neutrophils # Seg Neutrophils # Man Lymphocytes # (Manual) Monocytes # (Manual) PT INR POC ABG pH 7.451 H POC ABG pCO2 20.5 L POC ABG pO2 Sodium Potassium Chloride Carbon Dioxide BUN Creatinine Glucose POC Glucose 109 H 131 H Lactic Acid Calcium Phosphorus Magnesium Total Bilirubin Direct Bilirubin AST C-Reactive Protein Total Protein Albumin Urine Creatinine Ur Creatinine 24 Hour Crossmatch 03/03/18 03/03/18 03/03/18 04:30 06:15 06:15 WBC 21.1 H RBC 2.20 L Hgb 6.3 L Hct 20.8 L MCV 95 H MCHC 30 L RDW 17.8 H Plt Count Lymph % (Auto) [place] % (Auto) Lymph # Seg Neutrophils % Seg Neuts % (Manual) 71.0 H Lymphocytes % (Manual) 8.0 L Monocytes % (Manual) Nucleated RBC % Seg Neutrophils # Seg Neutrophils # Man 15.0 H Lymphocytes # (Manual) Monocytes # (Manual) 1.3 H PT INR POC ABG pH POC ABG pCO2 POC ABG pO2 Sodium 130 L D Potassium Chloride 96.4 L Carbon Dioxide 14 L BUN 69 H Creatinine 3.1 H Glucose POC Glucose Lactic Acid Calcium 7.0 L Phosphorus 5.10 H Magnesium Total Bilirubin Direct Bilirubin AST C-Reactive Protein Total Protein Albumin Urine Creatinine Ur Creatinine 24 Hour Crossmatch 03/03/18 03/03/18 03/03/18 08:37 09:38 12:13 WBC RBC Hgb Hct MCV MCHC RDW Plt Count Lymph % (Auto) [place] % (Auto) Lymph # Seg Neutrophils % Seg Neuts % (Manual) Lymphocytes % (Manual) Monocytes % (Manual) Nucleated RBC % Seg Neutrophils # Seg Neutrophils # Man Lymphocytes # (Manual) Monocytes # (Manual) PT INR POC ABG pH POC ABG pCO2 23.8 L POC ABG pO2 156 H Sodium Potassium Chloride Carbon Dioxide BUN Creatinine Glucose POC Glucose 119 H Lactic Acid Calcium Phosphorus Magnesium Total Bilirubin Direct Bilirubin AST C-Reactive Protein Total Protein Albumin Urine Creatinine Ur Creatinine 24 Hour Crossmatch See Detail 03/03/18 03/03/18 03/04/18 12:37 18:05 00:59 WBC RBC Hgb Hct MCV MCHC RDW Plt Count Lymph % (Auto) [place] % (Auto) Lymph # Seg Neutrophils % Seg Neuts % (Manual) Lymphocytes % (Manual) Monocytes % (Manual) Nucleated RBC % Seg Neutrophils # Seg Neutrophils # Man Lymphocytes # (Manual) Monocytes # (Manual) PT INR POC ABG pH POC ABG pCO2 POC ABG pO2 Sodium Potassium Chloride Carbon Dioxide BUN Creatinine Glucose POC Glucose 154 H 159 H Lactic Acid Calcium Phosphorus Magnesium 1.40 L Total Bilirubin Direct Bilirubin AST C-Reactive Protein Total Protein Albumin Urine Creatinine Ur Creatinine 24 Hour Crossmatch 03/04/18 03/04/18 03/04/18 04:27 05:30 05:30 WBC 22.6 H RBC 2.46 L Hgb 7.1 L Hct 21.7 L MCV MCHC RDW 17.2 H Plt Count Lymph % (Auto) [place] % (Auto) Lymph # Seg Neutrophils % Seg Neuts % (Manual) 84.0 H Lymphocytes % (Manual) 5.0 L Monocytes % (Manual) Nucleated RBC % Seg Neutrophils # Seg Neutrophils # Man 19.0 H Lymphocytes # (Manual) 1.1 L Monocytes # (Manual) PT INR POC ABG pH 7.486 H POC ABG pCO2 24.8 L POC ABG pO2 Sodium 135 L Potassium Chloride 96.2 L Carbon Dioxide 19 L BUN 69 H Creatinine 3.1 H Glucose 121 H POC Glucose Lactic Acid Calcium 7.1 L Phosphorus Magnesium Total Bilirubin Direct Bilirubin AST C-Reactive Protein 19.80 H Total Protein Albumin Urine Creatinine Ur Creatinine 24 Hour Crossmatch 03/04/18 03/04/18 03/04/18 05:38 11:47 17:53 WBC RBC Hgb Hct MCV MCHC RDW Plt Count Lymph % (Auto) [place] % (Auto) Lymph # Seg Neutrophils % Seg Neuts % (Manual) Lymphocytes % (Manual) Monocytes % (Manual) Nucleated RBC % Seg Neutrophils # Seg Neutrophils # Man Lymphocytes # (Manual) Monocytes # (Manual) PT INR POC ABG pH POC ABG pCO2 POC ABG pO2 Sodium Potassium Chloride Carbon Dioxide BUN Creatinine Glucose POC Glucose 134 H 109 H 113 H Lactic Acid Calcium Phosphorus Magnesium Total Bilirubin Direct Bilirubin AST C-Reactive Protein Total Protein Albumin Urine Creatinine Ur Creatinine 24 Hour Crossmatch 03/05/18 03/05/18 03/05/18 00:22 05:15 05:15 WBC 24.3 H RBC 2.29 L Hgb 6.8 L Hct 20.3 L MCV MCHC RDW 16.7 H Plt Count Lymph % (Auto) [place] % (Auto) Lymph # Seg Neutrophils % Seg Neuts % (Manual) 88.0 H Lymphocytes % (Manual) 3.0 L Monocytes % (Manual) Nucleated RBC % Seg Neutrophils # Seg Neutrophils # Man 21.4 H Lymphocytes # (Manual) 0.7 L Monocytes # (Manual) PT INR POC ABG pH POC ABG pCO2 POC ABG pO2 Sodium 132 L Potassium Chloride 91.2 L Carbon Dioxide BUN 69 H Creatinine 3.3 H Glucose POC Glucose 113 H Lactic Acid Calcium 6.9 L Phosphorus Magnesium Total Bilirubin Direct Bilirubin AST C-Reactive Protein Total Protein Albumin Urine Creatinine Ur Creatinine 24 Hour Crossmatch 03/05/18 03/05/18 03/05/18 05:36 11:51 16:00 WBC RBC Hgb Hct MCV MCHC RDW Plt Count Lymph % (Auto) [place] % (Auto) Lymph # Seg Neutrophils % Seg Neuts % (Manual) Lymphocytes % (Manual) Monocytes % (Manual) Nucleated RBC % Seg Neutrophils # Seg Neutrophils # Man Lymphocytes # (Manual) Monocytes # (Manual) PT INR POC ABG pH 7.519 H POC ABG pCO2 27.0 L POC ABG pO2 68 L Sodium Potassium Chloride Carbon Dioxide BUN Creatinine Glucose POC Glucose 118 H 131 H Lactic Acid Calcium Phosphorus Magnesium Total Bilirubin Direct Bilirubin AST C-Reactive Protein Total Protein Albumin Urine Creatinine Ur Creatinine 24 Hour Crossmatch 03/06/18 03/06/18 03/06/18 00:00 01:27 04:44 WBC 24.5 H RBC 2.90 L Hgb 8.5 L Hct 25.8 L MCV MCHC RDW 16.3 H Plt Count Lymph % (Auto) [place] % (Auto) Lymph # Seg Neutrophils % Seg Neuts % (Manual) 96.0 H Lymphocytes % (Manual) 1.5 L Monocytes % (Manual) Nucleated RBC % 1.0 H Seg Neutrophils # Seg Neutrophils # Man 23.5 H Lymphocytes # (Manual) 0.4 L Monocytes # (Manual) PT INR POC ABG pH POC ABG pCO2 POC ABG pO2 Sodium Potassium Chloride 92.9 L Carbon Dioxide BUN 67 H Creatinine 3.4 H Glucose POC Glucose 127 H Lactic Acid Calcium 7.2 L Phosphorus Magnesium Total Bilirubin Direct Bilirubin AST C-Reactive Protein Total Protein Albumin Urine Creatinine Ur Creatinine 24 Hour Crossmatch 03/06/18 03/06/18 03/06/18 04:54 05:54 12:08 WBC RBC Hgb Hct MCV MCHC RDW Plt Count Lymph % (Auto) [place] % (Auto) Lymph # Seg Neutrophils % Seg Neuts % (Manual) Lymphocytes % (Manual) Monocytes % (Manual) Nucleated RBC % Seg Neutrophils # Seg Neutrophils # Man Lymphocytes # (Manual) Monocytes # (Manual) PT INR POC ABG pH 7.551 H POC ABG pCO2 29.5 L POC ABG pO2 57 L Sodium Potassium Chloride Carbon Dioxide BUN Creatinine Glucose POC Glucose 108 H 123 H Lactic Acid Calcium Phosphorus Magnesium Total Bilirubin Direct Bilirubin AST C-Reactive Protein Total Protein Albumin Urine Creatinine Ur Creatinine 24 Hour Crossmatch 03/06/18 03/07/18 03/07/18 21:16 05:00 05:00 WBC 17.5 H RBC 2.41 L Hgb 7.3 L Hct 21.5 L MCV MCHC RDW 16.6 H Plt Count Lymph % (Auto) [place] % (Auto) Lymph # Seg Neutrophils % Seg Neuts % (Manual) 97.0 H Lymphocytes % (Manual) 1.0 L Monocytes % (Manual) Nucleated RBC % Seg Neutrophils # Seg Neutrophils # Man 17.0 H Lymphocytes # (Manual) 0.2 L Monocytes # (Manual) PT INR POC ABG pH 7.639 H POC ABG pCO2 25.3 L POC ABG pO2 Sodium Potassium Chloride 90.6 L Carbon Dioxide BUN 65 H Creatinine 3.4 H Glucose POC Glucose Lactic Acid Calcium 7.3 L Phosphorus Magnesium Total Bilirubin Direct Bilirubin AST C-Reactive Protein Total Protein Albumin Urine Creatinine Ur Creatinine 24 Hour Crossmatch 03/07/18 03/08/18 03/08/18 06:32 04:30 11:54 WBC 13.9 H RBC 2.36 L Hgb 7.1 L Hct 21.2 L MCV MCHC RDW 16.5 H Plt Count Lymph % (Auto) [place] % (Auto) Lymph # Seg Neutrophils % Seg Neuts % (Manual) 91.0 H Lymphocytes % (Manual) 2.0 L Monocytes % (Manual) Nucleated RBC % Seg Neutrophils # Seg Neutrophils # Man 12.6 H Lymphocytes # (Manual) 0.3 L Monocytes # (Manual) PT INR POC ABG pH 7.498 H POC ABG pCO2 30.2 L POC ABG pO2 44 L Sodium Potassium Chloride Carbon Dioxide BUN Creatinine Glucose POC Glucose 121 H Lactic Acid Calcium Phosphorus Magnesium Total Bilirubin Direct Bilirubin AST C-Reactive Protein Total Protein Albumin Urine Creatinine Ur Creatinine 24 Hour Crossmatch 03/08/18 03/08/18 03/09/18 18:29 23:52 05:45 WBC 12.9 H RBC 2.31 L Hgb 6.9 L Hct 20.9 L MCV MCHC RDW 16.7 H Plt Count Lymph % (Auto) 5.5 L [place] % (Auto) Lymph # 0.7 L Seg Neutrophils % 89.2 H Seg Neuts % (Manual) Lymphocytes % (Manual) Monocytes % (Manual) Nucleated RBC % Seg Neutrophils # 11.5 H Seg Neutrophils # Man Lymphocytes # (Manual) Monocytes # (Manual) PT INR POC ABG pH POC ABG pCO2 POC ABG pO2 Sodium Potassium Chloride Carbon Dioxide BUN Creatinine Glucose POC Glucose 106 H 115 H Lactic Acid Calcium Phosphorus Magnesium Total Bilirubin Direct Bilirubin AST C-Reactive Protein Total Protein Albumin Urine Creatinine Ur Creatinine 24 Hour Crossmatch 03/09/18 03/09/18 03/09/18 06:13 12:00 12:20 WBC RBC Hgb Hct MCV MCHC RDW Plt Count Lymph % (Auto) [place] % (Auto) Lymph # Seg Neutrophils % Seg Neuts % (Manual) Lymphocytes % (Manual) Monocytes % (Manual) Nucleated RBC % Seg Neutrophils # Seg Neutrophils # Man Lymphocytes # (Manual) Monocytes # (Manual) PT INR POC ABG pH POC ABG pCO2 POC ABG pO2 Sodium Potassium 3.3 L Chloride 82.2 L Carbon Dioxide 19 L D BUN 62 H Creatinine 3.0 H Glucose POC Glucose 122 H 113 H Lactic Acid Calcium 6.1 L D Phosphorus Magnesium Total Bilirubin Direct Bilirubin AST C-Reactive Protein Total Protein Albumin Urine Creatinine Ur Creatinine 24 Hour Crossmatch 03/09/18 03/09/18 03/10/18 13:30 17:38 06:55 WBC RBC 1.94 L Hgb 6.0 L Hct 17.8 L* MCV MCHC RDW 16.6 H Plt Count Lymph % (Auto) 4.6 L [place] % (Auto) Lymph # 0.5 L Seg Neutrophils % 90.0 H Seg Neuts % (Manual) Lymphocytes % (Manual) Monocytes % (Manual) Nucleated RBC % Seg Neutrophils # 9.1 H Seg Neutrophils # Man Lymphocytes # (Manual) Monocytes # (Manual) PT INR POC ABG pH POC ABG pCO2 POC ABG pO2 Sodium Potassium Chloride Carbon Dioxide BUN Creatinine Glucose POC Glucose Lactic Acid Calcium Phosphorus Magnesium Total Bilirubin Direct Bilirubin AST C-Reactive Protein Total Protein Albumin Urine Creatinine 69.2 H 69.2 H Ur Creatinine 24 Hour 0.3 L Crossmatch 03/10/18 03/10/18 03/10/18 06:55 09:00 12:14 WBC RBC Hgb Hct MCV MCHC RDW Plt Count Lymph % (Auto) [place] % (Auto) Lymph # Seg Neutrophils % Seg Neuts % (Manual) Lymphocytes % (Manual) Monocytes % (Manual) Nucleated RBC % Seg Neutrophils # Seg Neutrophils # Man Lymphocytes # (Manual) Monocytes # (Manual) PT INR POC ABG pH POC ABG pCO2 POC ABG pO2 Sodium 135 L Potassium Chloride 90.2 L Carbon Dioxide BUN 82 H Creatinine 3.9 H Glucose POC Glucose 107 H Lactic Acid Calcium 7.6 L D Phosphorus Magnesium Total Bilirubin Direct Bilirubin AST C-Reactive Protein Total Protein Albumin Urine Creatinine Ur Creatinine 24 Hour Crossmatch See Detail 03/10/18 03/10/18 03/11/18 18:14 20:02 14:25 WBC RBC Hgb 7.7 L Hct 23.3 L MCV MCHC RDW Plt Count Lymph % (Auto) [place] % (Auto) Lymph # Seg Neutrophils % Seg Neuts % (Manual) Lymphocytes % (Manual) Monocytes % (Manual) Nucleated RBC % Seg Neutrophils # Seg Neutrophils # Man Lymphocytes # (Manual) Monocytes # (Manual) PT INR POC ABG pH POC ABG pCO2 POC ABG pO2 Sodium Potassium Chloride 94.6 L Carbon Dioxide BUN 69 H Creatinine 3.7 H Glucose POC Glucose 126 H Lactic Acid Calcium 8.0 L Phosphorus Magnesium Total Bilirubin Direct Bilirubin AST C-Reactive Protein Total Protein Albumin Urine Creatinine Ur Creatinine 24 Hour Crossmatch 03/12/18 03/12/18 03/12/18 04:19 05:45 05:45 WBC RBC 2.44 L Hgb 7.4 L Hct 22.6 L MCV MCHC RDW 16.1 H Plt Count Lymph % (Auto) [place] % (Auto) Lymph # Seg Neutrophils % Seg Neuts % (Manual) Lymphocytes % (Manual) Monocytes % (Manual) Nucleated RBC % Seg Neutrophils # Seg Neutrophils # Man Lymphocytes # (Manual) Monocytes # (Manual) PT INR POC ABG pH POC ABG pCO2 POC ABG pO2 71 L Sodium Potassium Chloride 95.1 L Carbon Dioxide BUN 72 H Creatinine 4.0 H Glucose POC Glucose Lactic Acid Calcium 7.9 L Phosphorus Magnesium Total Bilirubin Direct Bilirubin AST C-Reactive Protein Total Protein Albumin Urine Creatinine Ur Creatinine 24 Hour Crossmatch 03/13/18 03/13/18 03/13/18 06:30 12:38 18:32 WBC RBC Hgb Hct MCV MCHC RDW Plt Count Lymph % (Auto) [place] % (Auto) Lymph # Seg Neutrophils % Seg Neuts % (Manual) Lymphocytes % (Manual) Monocytes % (Manual) Nucleated RBC % Seg Neutrophils # Seg Neutrophils # Man Lymphocytes # (Manual) Monocytes # (Manual) PT INR POC ABG pH 7.287 L POC ABG pCO2 54.6 H POC ABG pO2 78 L Sodium 136 L Potassium Chloride 91.8 L Carbon Dioxide BUN 76 H Creatinine 4.1 H Glucose POC Glucose 106 H Lactic Acid Calcium 8.0 L Phosphorus Magnesium Total Bilirubin Direct Bilirubin AST C-Reactive Protein Total Protein Albumin Urine Creatinine Ur Creatinine 24 Hour Crossmatch 03/13/18 03/14/18 03/14/18 23:34 05:30 05:30 WBC RBC Hgb Hct MCV MCHC RDW Plt Count Lymph % (Auto) [place] % (Auto) Lymph # Seg Neutrophils % Seg Neuts % (Manual) Lymphocytes % (Manual) Monocytes % (Manual) Nucleated RBC % Seg Neutrophils # Seg Neutrophils # Man Lymphocytes # (Manual) Monocytes # (Manual) PT INR POC ABG pH POC ABG pCO2 POC ABG pO2 Sodium 135 L Potassium Chloride 87.4 L Carbon Dioxide BUN 60 H Creatinine 3.7 H Glucose 102 H POC Glucose 111 H Lactic Acid Calcium 7.9 L Phosphorus Magnesium 1.60 L Total Bilirubin Direct Bilirubin AST C-Reactive Protein Total Protein Albumin Urine Creatinine Ur Creatinine 24 Hour Crossmatch 03/14/18 03/14/18 03/14/18 08:30 12:10 13:02 WBC RBC 2.58 L Hgb 7.9 L Hct 24.2 L MCV MCHC RDW 16.0 H Plt Count Lymph % (Auto) [place] % (Auto) Lymph # Seg Neutrophils % Seg Neuts % (Manual) Lymphocytes % (Manual) Monocytes % (Manual) Nucleated RBC % Seg Neutrophils # Seg Neutrophils # Man Lymphocytes # (Manual) Monocytes # (Manual) PT INR POC ABG pH POC ABG pCO2 POC ABG pO2 43 L Sodium Potassium Chloride Carbon Dioxide BUN Creatinine Glucose POC Glucose 118 H Lactic Acid Calcium Phosphorus Magnesium Total Bilirubin Direct Bilirubin AST C-Reactive Protein Total Protein Albumin Urine Creatinine Ur Creatinine 24 Hour Crossmatch 03/14/18 03/14/18 03/15/18 13:10 18:05 06:45 WBC RBC 2.39 L Hgb 7.2 L Hct 22.0 L MCV MCHC RDW 16.2 H Plt Count 130 L Lymph % (Auto) 8.7 L [place] % (Auto) 8.7 H Lymph # 0.8 L Seg Neutrophils % 81.5 H Seg Neuts % (Manual) Lymphocytes % (Manual) Monocytes % (Manual) Nucleated RBC % Seg Neutrophils # Seg Neutrophils # Man Lymphocytes # (Manual) Monocytes # (Manual) PT INR POC ABG pH 7.483 H POC ABG pCO2 30.7 L POC ABG pO2 55 L Sodium Potassium Chloride Carbon Dioxide BUN Creatinine Glucose POC Glucose 129 H Lactic Acid Calcium Phosphorus Magnesium Total Bilirubin Direct Bilirubin AST C-Reactive Protein Total Protein Albumin Urine Creatinine Ur Creatinine 24 Hour Crossmatch 03/15/18 03/15/18 03/15/18 06:45 12:22 18:01 WBC RBC Hgb Hct MCV MCHC RDW Plt Count Lymph % (Auto) [place] % (Auto) Lymph # Seg Neutrophils % Seg Neuts % (Manual) Lymphocytes % (Manual) Monocytes % (Manual) Nucleated RBC % Seg Neutrophils # Seg Neutrophils # Man Lymphocytes # (Manual) Monocytes # (Manual) PT INR POC ABG pH POC ABG pCO2 POC ABG pO2 Sodium 133 L Potassium Chloride 90.7 L Carbon Dioxide BUN 64 H Creatinine 4.7 H Glucose 118 H POC Glucose 140 H 162 H Lactic Acid Calcium 7.9 L Phosphorus Magnesium Total Bilirubin Direct Bilirubin AST 55 H C-Reactive Protein Total Protein 6.2 L Albumin 2.8 L Urine Creatinine Ur Creatinine 24 Hour Crossmatch 03/15/18 03/16/18 03/16/18 Unknown 00:13 05:26 WBC RBC Hgb Hct MCV MCHC RDW Plt Count Lymph % (Auto) [place] % (Auto) Lymph # Seg Neutrophils % Seg Neuts % (Manual) Lymphocytes % (Manual) Monocytes % (Manual) Nucleated RBC % Seg Neutrophils # Seg Neutrophils # Man Lymphocytes # (Manual) Monocytes # (Manual) PT INR POC ABG pH POC ABG pCO2 POC ABG pO2 Sodium Potassium Chloride Carbon Dioxide BUN Creatinine Glucose POC Glucose 141 H 162 H Lactic Acid 2.60 H* Calcium Phosphorus Magnesium Total Bilirubin Direct Bilirubin AST C-Reactive Protein Total Protein Albumin Urine Creatinine Ur Creatinine 24 Hour Crossmatch 03/16/18 03/16/18 03/16/18 05:45 05:45 05:45 WBC RBC 2.43 L Hgb 7.5 L Hct 22.5 L MCV MCHC RDW 16.3 H Plt Count Lymph % (Auto) [place] % (Auto) Lymph # Seg Neutrophils % Seg Neuts % (Manual) 89.0 H Lymphocytes % (Manual) 4.0 L Monocytes % (Manual) Nucleated RBC % Seg Neutrophils # Seg Neutrophils # Man 9.2 H Lymphocytes # (Manual) 0.4 L Monocytes # (Manual) PT INR POC ABG pH POC ABG pCO2 POC ABG pO2 Sodium 128 L Potassium Chloride 85.4 L Carbon Dioxide 21 L BUN 65 H Creatinine 4.8 H Glucose 201 H POC Glucose Lactic Acid Calcium 8.0 L Phosphorus Magnesium Total Bilirubin Direct Bilirubin 0.5 H AST 55 H C-Reactive Protein Total Protein Albumin 2.8 L Urine Creatinine Ur Creatinine 24 Hour Crossmatch Allied health notes reviewed: RT
--- NOTE | 2018-03-16 11:04 | XRay Report ---
AP CHEST: HISTORY: Heart failure Lines and tubes are unchanged in position. Pulmonary venous congestion has significantly decreased since 03/14/18. Cardiomegaly is stable. The right hemidiaphragm is mildly elevated. No pleural effusion or pneumothorax is appreciated. IMPRESSION: Decreased pulmonary venous congestion since the exam 2 days ago.
--- NOTE | 2018-03-16 11:23 | Progress Note ---
Assessment and Plan Assessment and plan: 72-year-old male with history of cerebrovascular accident and hemiplegia, Alzheimer's and nonverbal from [facility] was admitted with altered mental state.Patient was febrile 103.2F as well as and respiratory failure 03/03: Went into cardiopulmonary arrest. s/p CPR per ACLS protocol , encephalopathy 03/05: Pt had recurrent seizure over the night and CT head showed right MCA acute /subacute stroke and calcified meningioma in the left frontal area 03/12: commence on renal replacemtn therapy 03/11 --Acute hypoxic respiratory failure; vent dependent Tracheostomy scheduled for tomorrow Continue ventilatory support, nebulizers, pulmonary following --Severe sepsis with septic shock;Resolved, --Acute kidney injury; secondary to ATN On hemodialysis, nephrology following, HD per schedule --Metabolic encephalopathy; multifactorial supportive care --Status post cardiac arrest/anoxic encephalopathy Continue supportive care, poor prognosis --Acute/ Subacute right MCA distribution stroke Supportive care --Meningioma left frontal area 2.8 x 2.2cm Prophylactic seizure medications with Keppra --Sacral Pressure ulcer Continue wound care --History of BPH Continue Finasteride --Hyperlipidemia; statin --Anemia of chronic disease; Closely monitor transfuse as needed --DVT prophylaxis; heparin renal dose Poor prognosis The high probability of a clinically significant, sudden or life threatening deterioration of the [neurological , renal ,metabolic and PULMONARY] system(s) required my full and direct attention, intervention and personal management. The aggregate critical care time was [31] minutes. This time is in addition to time spent performing reported procedures but includes the following: [X] Data Review and interpretation [X] Patient assessment and monitoring of vital signs [X] Documentation [X] Medication orders and management History Interval history: Patient seen and examined medical records reviewed Remains intubated on ventilatory support, vent dependent Surgery scheduling tracheostomy for tomorrow No new events reported by the nursing Clinical signs reviewed Hospitalist Physical - Constitutional Vitals: Temp Pulse Resp BP Pulse Ox 97.4 F L 116 H 36 H 124/85 94 03/16/18 08:00 03/16/18 08:21 03/16/18 08:21 03/16/18 08:07 03/16/18 08:07 General appearance: Present: no acute distress, well-nourished, other ( intubated on vent and sedated) - EENT Eyes: Present: PERRL, EOM intact - Neck Neck: Present: supple, normal ROM - Respiratory Respiratory effort: normal Respiratory: bilateral: diminished, rhonchi, negative: rales, wheezing - Cardiovascular Rhythm: regular Heart Sounds: Present: S1 & S2 - Extremities Extremities: no ischemia Extremity abnormal: edema - Abdominal General gastrointestinal: soft, non-tender, non-distended, normal bowel sounds - Integumentary Integumentary: Present: clear, warm - Psychiatric Psychiatric: other (unresponsive) - Neurologic Neurologic: other (unresponsive) Results - Labs CBC & Chem 7: 03/16/18 05:45 03/16/18 05:45 Labs: Laboratory Last Values WBC 10.3 K/mm3 (4.5-11.0) 03/16/18 05:45 RBC 2.43 M/mm3 (3.65-5.03) L 03/16/18 05:45 Hgb 7.5 gm/dl (11.8-15.2) L 03/16/18 05:45 Hct 22.5 % (35.5-45.6) L 03/16/18 05:45 MCV 93 fl (84-94) 03/16/18 05:45 MCH 31 pg (28-32) 03/16/18 05:45 MCHC 33 % (32-34) 03/16/18 05:45 RDW 16.3 % (13.2-15.2) H 03/16/18 05:45 Plt Count 166 K/mm3 (140-440) 03/16/18 05:45 Lymph % (Auto) 8.7 % (13.4-35.0) L 03/15/18 06:45 [place] % (Auto) 8.7 % (0.0-7.3) H 03/15/18 06:45 Eos % (Auto) 0.8 % (0.0-4.3) 03/15/18 06:45 Baso % (Auto) 0.3 % (0.0-1.8) 03/15/18 06:45 Lymph # 0.8 K/mm3 (1.2-5.4) L 03/15/18 06:45 [place] # 0.8 K/mm3 (0.0-0.8) 03/15/18 06:45 Eos # 0.1 K/mm3 (0.0-0.4) 03/15/18 06:45 Baso # 0.0 K/mm3 (0.0-0.1) 03/15/18 06:45 Add Manual Diff Complete 03/16/18 05:45 Total Counted 100 03/16/18 05:45 Seg Neutrophils % 81.5 % (40.0-70.0) H 03/15/18 06:45 Seg Neuts % (Manual) 89.0 % (40.0-70.0) H 03/16/18 05:45 Band Neutrophils % 1.0 % 03/16/18 05:45 Lymphocytes % (Manual) 4.0 % (13.4-35.0) L 03/16/18 05:45 Reactive Lymphs % (Man) 0 % 03/16/18 05:45 Monocytes % (Manual) 5.0 % (0.0-7.3) 03/16/18 05:45 Eosinophils % (Manual) 0 % (0.0-4.3) 03/16/18 05:45 Basophils % (Manual) 0 % (0.0-1.8) 03/16/18 05:45 Metamyelocytes % 1.0 % 03/16/18 05:45 Myelocytes % 0 % 03/16/18 05:45 Promyelocytes % 0 % 03/16/18 05:45 Blast Cells % 0 % 03/16/18 05:45 Nucleated RBC % Not Reportable 03/16/18 05:45 Seg Neutrophils # 7.6 K/mm3 (1.8-7.7) 03/15/18 06:45 Seg Neutrophils # Man 9.2 K/mm3 (1.8-7.7) H 03/16/18 05:45 Band Neutrophils # 0.1 K/mm3 03/16/18 05:45 Lymphocytes # (Manual) 0.4 K/mm3 (1.2-5.4) L 03/16/18 05:45 Abs React Lymphs (Man) 0.0 K/mm3 03/16/18 05:45 Monocytes # (Manual) 0.5 K/mm3 (0.0-0.8) 03/16/18 05:45 Eosinophils # (Manual) 0.0 K/mm3 (0.0-0.4) 03/16/18 05:45 Basophils # (Manual) 0.0 K/mm3 (0.0-0.1) 03/16/18 05:45 Metamyelocytes # 0.1 K/mm3 03/16/18 05:45 Myelocytes # 0.0 K/mm3 03/16/18 05:45 Promyelocytes # 0.0 K/mm3 03/16/18 05:45 Blast Cells # 0.0 K/mm3 03/16/18 05:45 WBC Morphology Not Reportable 03/16/18 05:45 Hypersegmented Neuts Not Reportable 03/16/18 05:45 Hyposegmented Neuts Not Reportable 03/16/18 05:45 Hypogranular Neuts Not Reportable 03/16/18 05:45 Smudge Cells Not Reportable 03/16/18 05:45 Toxic Granulation Not Reportable 03/16/18 05:45 Toxic Vacuolation Not Reportable 03/16/18 05:45 Dohle Bodies Not Reportable 03/16/18 05:45 Pelger-Huet Anomaly Not Reportable 03/16/18 05:45 Erwin Rods Not Reportable 03/16/18 05:45 Platelet Estimate Cons 03/16/18 05:45 Clumped Platelets Not Reportable 03/16/18 05:45 Plt Clumps, EDTA Not Reportable 03/16/18 05:45 Large Platelets Not Reportable 03/16/18 05:45 Giant Platelets Not Reportable 03/16/18 05:45 Platelet Satelliting Not Reportable 03/16/18 05:45 Plt Morphology Comment Not Reportable 03/16/18 05:45 RBC Morphology Not Reportable 03/16/18 05:45 Dimorphic RBCs Not Reportable 03/16/18 05:45 Polychromasia Not Reportable 03/16/18 05:45 Hypochromasia 1+ 03/16/18 05:45 Poikilocytosis Not Reportable 03/16/18 05:45 Anisocytosis 1+ 03/16/18 05:45 Microcytosis Not Reportable 03/16/18 05:45 Macrocytosis Not Reportable 03/16/18 05:45 Spherocytes Not Reportable 03/16/18 05:45 Pappenheimer Bodies Not Reportable 03/16/18 05:45 Sickle Cells Not Reportable 03/16/18 05:45 Target Cells Not Reportable 03/16/18 05:45 Tear Drop Cells Not Reportable 03/16/18 05:45 Ovalocytes Not Reportable 03/16/18 05:45 Stomatocytes Few 02/28/18 09:00 Helmet Cells Not Reportable 03/16/18 05:45 [place] Bodies Not Reportable 03/16/18 05:45 [place] Rings Not Reportable 03/16/18 05:45 [place] Cells Not Reportable 03/16/18 05:45 Bite Cells Not Reportable 03/16/18 05:45 Crenated Cell Not Reportable 03/16/18 05:45 Elliptocytes Not Reportable 03/16/18 05:45 Acanthocytes (Spur) Not Reportable 03/16/18 05:45 Rouleaux Not Reportable 03/16/18 05:45 Hemoglobin C Crystals Not Reportable 03/16/18 05:45 Schistocytes Not Reportable 03/16/18 05:45 Malaria parasites Not Reportable 03/16/18 05:45 Aric Bodies Not Reportable 03/16/18 05:45 Hem Pathologist Commnt No 03/16/18 05:45 PT 21.5 Sec. (12.2-14.9) H 02/26/18 20:50 INR 1.75 (0.87-1.13) H 02/26/18 20:50 POC ABG pH 7.483 (7.35-7.45) H 03/14/18 13:10 POC ABG pCO2 30.7 (35-45) L 03/14/18 13:10 POC ABG pO2 55 (80-105) L 03/14/18 13:10 POC ABG HCO3 23.0 03/14/18 13:10 POC ABG Total CO2 24 03/14/18 13:10 POC ABG O2 Sat 91 03/14/18 13:10 POC ABG Base Excess 0 03/14/18 13:10 VBG pH 7.406 (7.320-7.420) 02/25/18 23:15 FiO2 50 % 03/14/18 13:10 Sodium 128 mmol/L (137-145) L 03/16/18 05:45 Potassium 3.7 mmol/L (3.6-5.0) 03/16/18 05:45 Chloride 85.4 mmol/L (98-107) L 03/16/18 05:45 Carbon Dioxide 21 mmol/L (22-30) L 03/16/18 05:45 Anion Gap 25 mmol/L 03/16/18 05:45 BUN 65 mg/dL (9-20) H 03/16/18 05:45 Creatinine 4.8 mg/dL (0.8-1.5) H 03/16/18 05:45 Estimated GFR 15 ml/min 03/16/18 05:45 BUN/Creatinine Ratio 14 % 03/16/18 05:45 Glucose 201 mg/dL (75-100) H 03/16/18 05:45 POC Glucose 162 (70-105) H 03/16/18 05:26 Lactic Acid 2.60 mmol/L (0.7-2.0) H* 03/15/18 Unknown Calcium 8.0 mg/dL (8.4-10.2) L 03/16/18 05:45 Phosphorus 5.10 mg/dL (2.5-4.5) H 03/03/18 04:30 Magnesium 1.60 mg/dL (1.7-2.3) L 03/14/18 05:30 Total Bilirubin 0.80 mg/dL (0.1-1.2) 03/16/18 05:45 Direct Bilirubin 0.5 mg/dL (0-0.2) H 03/16/18 05:45 Indirect Bilirubin 0.3 mg/dL 03/16/18 05:45 AST 55 units/L (5-40) H 03/16/18 05:45 ALT 19 units/L (7-56) 03/16/18 05:45 Alkaline Phosphatase 112 units/L (35-129) 03/16/18 05:45 C-Reactive Protein 19.80 mg/dL (0.00-1.30) H 03/04/18 05:30 Total Protein 6.3 g/dL (6.3-8.2) 03/16/18 05:45 Albumin 2.8 g/dL (3.9-5) L 03/16/18 05:45 Albumin/Globulin Ratio 0.8 % 03/16/18 05:45 Lipase 35 units/L (13-60) 02/26/18 02:58 TSH 2.670 mlU/mL (0.270-4.200) 02/26/18 00:10 Free T4 1.26 ng/dL (0.76-1.46) 02/26/18 00:10 Urine Color [place] (Yellow) 02/26/18 00:32 Urine Turbidity Hazy (Clear) 02/26/18 00:32 Urine pH 5.0 (5.0-7.0) 02/26/18 00:32 Ur Specific [place] 1.015 (1.003-1.030) 02/26/18 00:32 Urine Protein <15 mg/dl mg/dL (Negative) 02/26/18 00:32 Urine Glucose (UA) Neg mg/dL (Negative) 02/26/18 00:32 Urine Ketones Neg mg/dL (Negative) 02/26/18 00:32 Urine Blood Neg (Negative) 02/26/18 00:32 Urine Nitrite Neg (Negative) 02/26/18 00:32 Urine Bilirubin Neg (Negative) 02/26/18 00:32 Urine Urobilinogen 4.0 mg/dL (<2.0) 02/26/18 00:32 Ur Leukocyte Esterase Neg (Negative) 02/26/18 00:32 Urine WBC (Auto) 1.0 /HPF (0.0-6.0) 02/26/18 00:32 Urine RBC (Auto) 1.0 /HPF (0.0-6.0) 02/26/18 00:32 U Epithel Cells (Auto) 1.0 /HPF (0-13.0) 02/26/18 00:32 Amorphous Crystals 3+ 02/26/18 00:32 Hyaline Casts 4 /LPF 02/26/18 00:32 Urine Mucus Few /HPF 02/26/18 00:32 Urine Total Volume 490 03/09/18 17:38 Urine Creatinine 69.2 mg/dL (0.1-20.0) H 03/09/18 17:38 Ur Creatinine 24 Hour 0.3 (0.8-2.8) L 03/09/18 13:30 Height (in) 67.0 inches 03/09/18 17:38 Weight (lb) 159.0 lbs 03/09/18 17:38 Creatinine Clearance 7 03/09/18 17:38 Urine Sodium 67 mmol/L 02/26/18 13:08 Hep Bs Antigen Non-reactive (Negative) 03/11/18 14:25 Hepatitis C Antibody Non-reactive (NonReactive) 03/11/18 14:44 Blood Type A POSITIVE 03/10/18 09:00 Antibody Screen Negative 03/10/18 09:00 Crossmatch See Detail 03/10/18 09:00
[2018-03-16] MEDS ORDERED: CORDARONE 150 MG in D5W 100 ML IV ONE (11:30)
[2018-03-16] MEDS: SODIUM CHLORIDE FLUSH SYRINGE 10 ML IV SCH ×2 (13:54→21:02)
[2018-03-16] MEDS ORDERED: NACL 0.9 (PRIMING MACHINE ONLY DIALYSIS) MC ONE (15:06)
--- NOTE | 2018-03-16 15:34 | Event Note ---
Date: 03/16/18 Bedside tracheostomy rescheduled for tomorrow 03/17/18. Pt orders placed to keep NPO p MN and stop TF at MN. Patient's nurse Rick and Dr. Grant aware. A message was left for the patient's son ABBEY Swanson to update him.
[2018-03-16] MEDS: fentaNYL DRIP Premix 2,000 MCG/100 ML BAG IV SCH (15:57)
[2018-03-17] MEDS: DUONEB *Not for PRN Use IH SCH ×4 (00:10→23:52)
[2018-03-17] MEDS: Vasostrict 20 UNIT in NACL 0.9% 100 ML IV SCH (00:40)
[2018-03-17] MEDS: HumuLIN R SUB-Q SCH ×2 (01:00→06:10)
[2018-03-17 05:16] LABS: Calcium 8.2 mg/dL (8.4-10.2)
[2018-03-17 05:38] LABS: Hematocrit 22.3 % (35.5-45.6); Hemoglobin 7.4 gm/dl (11.8-15.2); Mean Corpuscular HGB Conc 33 % (32-34); Mean Corpuscular Hemoglobin 30 pg (28-32); Mean Corpuscular Volume 92 fl (84-94); Platelet Count 207 K/mm3 (140-440); Red Blood Count 2.42 M/mm3 (3.65-5.03); Red Cell Distribution Width 16.1 % (13.2-15.2)
[2018-03-17] MEDS: KEPPRA FEEDTUBE SCH (06:14)
[2018-03-17] MEDS: ROBINUL PO SCH ×2 (08:00→21:04)
[2018-03-17] MEDS: KCL 10MEQ/100ML 10 MEQ/100 ML BAG IV SCH ×3 (09:05→11:55)
[2018-03-17] MEDS: HEPARIN SUB-Q SCH ×2 (10:00→21:04)
[2018-03-17] MEDS: PEPCID PO SCH (10:00)
[2018-03-17] MEDS: SODIUM CHLORIDE FLUSH SYRINGE 10 ML IV SCH ×2 (10:00→21:05)
[2018-03-17] MEDS: BABY ASPIRIN PO SCH (10:00)
--- NOTE | 2018-03-17 10:01 | Progress Note ---
Assessment and Plan Continue amio gtt and plan for conversion to PO amio following trach placement. Pt currently NPO. With severe anemia and upcoming trach placement, will be hesitant about full anticoagulation. Volume optimization per nephrology - s/p first HD treatment yesterday. The patient has been seen in conjunction with Dr. Pittman who agrees with the assessment and plan of care. - Patient Problems (1) Atrial fibrillation with RVR Current Visit: Yes Status: Acute (2) New onset atrial fibrillation Current Visit: Yes Status: Acute (3) Acute hypoxemic respiratory failure Current Visit: Yes Status: Acute (4) Sepsis Current Visit: Yes Status: Acute Qualifiers: Sepsis type: sepsis due to unspecified organism Qualified Code(s): A41.9 - Sepsis, unspecified organism (5) Acute kidney injury superimposed on CKD Current Visit: Yes Status: Acute (6) Anemia Current Visit: Yes Status: Acute Qualifiers: Anemia type: unspecified type Qualified Code(s): D64.9 - Anemia, unspecified Subjective Date of service: 03/17/18 Principal diagnosis: Acute Hypoxemic Resp Failure; Severe Sepsis; Aspiration Pneumonai (HCAP) Interval history: pt remains intubated, nonverbal. in AFib with HR 100s. no family at bedside. for trach today. s/p first HD treatment yesterday. Objective Last Vital Signs Temp 98.6 F 03/17/18 03:20 Pulse 89 03/17/18 08:25 Resp 22 03/17/18 08:25 BP 127/64 03/17/18 08:00 Pulse Ox 99 03/17/18 08:00 - Physical Examination General: Other (intubated, nonverbal) HEENT: Positive: EOMI, Normocephaly, Mucus Membranes Moist Neck: Positive: neck supple, trachea midline Lungs: Positive: Decreased Breath Sounds, Rales, Wheezes, Ventilated Respirations Neuro: Positive: Other (nonverbal, left hemiplegia) Abdomen: Positive: Soft, Active Bowel Sounds. Negative: Tender Skin: Positive: Clear. Negative: Rash Musculoskeletal: Decreased Range of Motion Extremities: Present: +3 Edema (BLE) - Labs and Meds CBC 03/17/18 Range/Units 04:40 WBC 8.4 (4.5-11.0) K/mm3 RBC 2.42 L (3.65-5.03) M/mm3 Hgb 7.4 L (11.8-15.2) gm/dl Hct 22.3 L (35.5-45.6) % Plt Count 207 (140-440) K/mm3 Comprehensive Metabolic Panel 03/17/18 Range/Units 04:40 Sodium 133 L (137-145) mmol/L Potassium 3.4 L (3.6-5.0) mmol/L Chloride 90.3 L (98-107) mmol/L Carbon Dioxide 24 (22-30) mmol/L BUN 45 H (9-20) mg/dL Creatinine 3.6 H (0.8-1.5) mg/dL Glucose 92 (75-100) mg/dL Calcium 8.2 L (8.4-10.2) mg/dL - Imaging and Cardiology EKG: image reviewed - Telemetry EKG Rhythm: Atrial Fibrillation - Allied health notes Allied health notes reviewed: RT
[2018-03-17] MEDS ORDERED: NACL 0.9% 1000 ML 1,000 ML IV SCH (11:00)
--- NOTE | 2018-03-17 13:09 | Progress Note ---
Assessment and Plan Severe sepsis with septic shock. Aspiration pneumonia, healthcare associated. Acute hypoxemic respiratory failure on MVS Atrial fibrillation with RVR Acute/subacute right MCA stroke Acute on chronic encephalopathy. Acute on chronic kidney injury. Anemia. Hyponatremia. Metabolic acidosis/lactic acidosis. Leukocytosis History of hypertension. History of diabetes. History of Alzheimer dementia. 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 The aggregate critical care time was [35] minutes without overlap. Time includes spent on; [x] Data Review and interpretation [x] Patient assessment and monitoring of vital signs [x] Documentation [x] Medication orders and management Subjective Date of service: 03/17/18 Principal diagnosis: Acute Hypoxemic Resp Failure; Severe Sepsis; Aspiration Pneumonai (HCAP) Interval history: Patient is seen today for: Acute Hypoxemic Resp Failure; Severe Sepsis; Aspiration Pneumonia(HCAP), DIANNA Seen and examined. Vitals, labs, medications, chart and imaging reviewed. Overnight events reviewed. Discussed with RT and RN. 24hour events reviewed; nursing and respiratory care staff consulted; remains on MVS; For trachesotomy placement today Objective Vital Signs - 12hr 03/17/18 03/17/18 03/17/18 02:00 03:00 03:20 Temperature 98.6 F Pulse Rate 115 H 108 H Pulse Rate [ Anterior Bilateral Throughout] Pulse Rate [ From Monitor] Respiratory 26 H 24 Rate Respiratory Rate [Anterior Bilateral Throughout] Blood Pressure 146/73 124/65 O2 Sat by Pulse 95 98 Oximetry 03/17/18 03/17/18 03/17/18 04:00 04:01 04:15 Temperature Pulse Rate 108 H 105 H Pulse Rate [ Anterior Bilateral Throughout] Pulse Rate [ From Monitor] Respiratory 26 H Rate Respiratory Rate [Anterior Bilateral Throughout] Blood Pressure 114/69 108/66 O2 Sat by Pulse 97 96 98 Oximetry 03/17/18 03/17/18 03/17/18 05:00 06:01 07:00 Temperature Pulse Rate 119 H 115 H 100 H Pulse Rate [ Anterior Bilateral Throughout] Pulse Rate [ From Monitor] Respiratory 26 H 26 H 26 H Rate Respiratory Rate [Anterior Bilateral Throughout] Blood Pressure 114/69 115/64 132/68 O2 Sat by Pulse 96 94 94 Oximetry 03/17/18 03/17/18 03/17/18 07:48 07:51 08:00 Temperature 98.8 F Pulse Rate 106 H 96 H Pulse Rate [ 104 H Anterior Bilateral Throughout] Pulse Rate [ 103 H From Monitor] Respiratory 22 Rate Respiratory 26 H Rate [Anterior Bilateral Throughout] Blood Pressure 117/68 127/64 O2 Sat by Pulse 98 99 Oximetry 03/17/18 03/17/18 03/17/18 08:25 09:00 10:00 Temperature Pulse Rate 101 H 101 H Pulse Rate [ 89 Anterior Bilateral Throughout] Pulse Rate [ From Monitor] Respiratory 21 21 Rate Respiratory 22 Rate [Anterior Bilateral Throughout] Blood Pressure 106/63 108/62 O2 Sat by Pulse 97 94 Oximetry 03/17/18 11:19 Temperature Pulse Rate 102 H Pulse Rate [ Anterior Bilateral Throughout] Pulse Rate [ From Monitor] Respiratory Rate Respiratory Rate [Anterior Bilateral Throughout] Blood Pressure 110/72 O2 Sat by Pulse 96 Oximetry Constitutional: appears uncomfortable, other (elderly looking AAM, normocephalic and atraumativ on MVS with increased respiratory effort) Eyes: non-icteric ENT: oropharynx moist, other (ETT 24 cm TERESA) Neck: supple, no lymphadenopathy, no JVD, other (no thyromegaly) Effort: mildly labored Ascultation: Right: diminished breath sounds (base), Bilateral: rales, rhonchi Percussion: Right: dull (base), Bilateral: not dull Cardiovascular: irregular rhythm, other (No R/M, S1,S2) Gastrointestinal: normoactive bowel sounds, soft, non-tender, non-distended, other (+ PEG; No HSM, scrotal edema) Integumentary: other (poor turgor) Extremities: no cyanosis, pulses normal, no ischemia or petechiae, anasarca Neurologic: pupils equal and round, unable to assess Psychiatric: other (unable to assess re: encephalopathy) CBC and BMP: 03/17/18 04:40 03/17/18 04:40 ABG, PT/INR, D-dimer: ABG POC ABG pH 7.483 (7.35-7.45) H 03/14/18 13:10 POC ABG pCO2 30.7 (35-45) L 03/14/18 13:10 POC ABG pO2 55 (80-105) L 03/14/18 13:10 POC ABG HCO3 23.0 03/14/18 13:10 POC ABG Total CO2 24 03/14/18 13:10 POC ABG O2 Sat 91 03/14/18 13:10 PT/INR, D-dimer PT 21.5 Sec. (12.2-14.9) H 02/26/18 20:50 INR 1.75 (0.87-1.13) H 02/26/18 20:50 Abnormal lab findings: Abnormal Labs 02/25/18 02/25/18 02/25/18 23:15 23:15 23:15 WBC 12.3 H RBC 3.56 L Hgb 10.2 L Hct 33.7 L MCV 95 H MCHC 30 L RDW 17.7 H Plt Count Lymph % (Auto) [place] % (Auto) Lymph # Seg Neutrophils % Seg Neuts % (Manual) 35.0 L Lymphocytes % (Manual) 13.0 L Monocytes % (Manual) 8.0 H Nucleated RBC % Seg Neutrophils # Seg Neutrophils # Man Lymphocytes # (Manual) Monocytes # (Manual) 1.0 H PT 20.3 H INR 1.63 H POC ABG pH POC ABG pCO2 POC ABG pO2 Sodium 152 H Potassium Chloride 108.7 H Carbon Dioxide 18 L BUN 136 H Creatinine 5.2 H Glucose POC Glucose Lactic Acid Calcium 8.0 L Phosphorus Magnesium Total Bilirubin 4.50 H Direct Bilirubin AST 83 H C-Reactive Protein Total Protein Albumin 2.7 L Urine Creatinine Ur Creatinine 24 Hour Crossmatch 02/25/18 02/25/18 02/26/18 23:15 23:30 03:06 WBC RBC Hgb Hct MCV MCHC RDW Plt Count Lymph % (Auto) [place] % (Auto) Lymph # Seg Neutrophils % Seg Neuts % (Manual) Lymphocytes % (Manual) Monocytes % (Manual) Nucleated RBC % Seg Neutrophils # Seg Neutrophils # Man Lymphocytes # (Manual) Monocytes # (Manual) PT INR POC ABG pH POC ABG pCO2 25.2 L POC ABG pO2 69 L Sodium Potassium Chloride Carbon Dioxide BUN Creatinine Glucose POC Glucose Lactic Acid 7.00 H* 9.70 H* Calcium Phosphorus Magnesium Total Bilirubin Direct Bilirubin AST C-Reactive Protein Total Protein Albumin Urine Creatinine Ur Creatinine 24 Hour Crossmatch 02/26/18 02/26/18 02/26/18 05:12 05:43 07:39 WBC 23.7 H RBC 3.27 L Hgb 9.3 L Hct 31.1 L MCV 95 H MCHC 30 L RDW 17.4 H Plt Count Lymph % (Auto) [place] % (Auto) Lymph # Seg Neutrophils % Seg Neuts % (Manual) Lymphocytes % (Manual) 2.0 L Monocytes % (Manual) Nucleated RBC % 1.0 H Seg Neutrophils # Seg Neutrophils # Man 16.1 H Lymphocytes # (Manual) 0.5 L Monocytes # (Manual) 1.2 H PT INR POC ABG pH POC ABG pCO2 19.5 L POC ABG pO2 72 L Sodium Potassium Chloride Carbon Dioxide BUN Creatinine Glucose POC Glucose Lactic Acid 8.80 H* Calcium Phosphorus Magnesium Total Bilirubin Direct Bilirubin AST C-Reactive Protein Total Protein Albumin Urine Creatinine Ur Creatinine 24 Hour Crossmatch 02/26/18 02/26/18 02/26/18 07:39 12:06 13:08 WBC RBC Hgb Hct MCV MCHC RDW Plt Count Lymph % (Auto) [place] % (Auto) Lymph # Seg Neutrophils % Seg Neuts % (Manual) Lymphocytes % (Manual) Monocytes % (Manual) Nucleated RBC % Seg Neutrophils # Seg Neutrophils # Man Lymphocytes # (Manual) Monocytes # (Manual) PT INR POC ABG pH POC ABG pCO2 27.8 L POC ABG pO2 168 H Sodium 155 H Potassium Chloride 114.2 H Carbon Dioxide 14 L BUN 120 H Creatinine 4.6 H Glucose 108 H POC Glucose Lactic Acid Calcium 7.7 L Phosphorus Magnesium Total Bilirubin 4.50 H Direct Bilirubin AST 105 H C-Reactive Protein Total Protein Albumin 2.4 L Urine Creatinine 38.6 H Ur Creatinine 24 Hour Crossmatch 02/26/18 02/26/18 02/26/18 18:41 20:50 20:50 WBC RBC Hgb Hct MCV MCHC RDW Plt Count Lymph % (Auto) [place] % (Auto) Lymph # Seg Neutrophils % Seg Neuts % (Manual) Lymphocytes % (Manual) Monocytes % (Manual) Nucleated RBC % Seg Neutrophils # Seg Neutrophils # Man Lymphocytes # (Manual) Monocytes # (Manual) PT 21.5 H INR 1.75 H POC ABG pH POC ABG pCO2 POC ABG pO2 Sodium Potassium Chloride Carbon Dioxide BUN Creatinine Glucose POC Glucose 135 H Lactic Acid Calcium Phosphorus Magnesium Total Bilirubin Direct Bilirubin AST C-Reactive Protein 33.90 H Total Protein Albumin Urine Creatinine Ur Creatinine 24 Hour Crossmatch 02/27/18 02/27/18 02/27/18 03:39 04:56 04:56 WBC 20.1 H RBC 2.92 L Hgb 8.4 L Hct 27.5 L MCV MCHC 31 L RDW 17.1 H Plt Count Lymph % (Auto) [place] % (Auto) Lymph # Seg Neutrophils % Seg Neuts % (Manual) 92.0 H Lymphocytes % (Manual) 3.0 L Monocytes % (Manual) Nucleated RBC % Seg Neutrophils # Seg Neutrophils # Man 18.5 H Lymphocytes # (Manual) 0.6 L Monocytes # (Manual) PT INR POC ABG pH 7.453 H POC ABG pCO2 27.2 L POC ABG pO2 Sodium 149 H Potassium Chloride 113.1 H Carbon Dioxide 18 L BUN 103 H Creatinine 3.8 H Glucose 120 H POC Glucose Lactic Acid Calcium 7.8 L Phosphorus Magnesium Total Bilirubin Direct Bilirubin AST C-Reactive Protein Total Protein Albumin Urine Creatinine Ur Creatinine 24 Hour Crossmatch 02/27/18 02/27/18 02/27/18 12:37 12:45 17:51 WBC RBC Hgb Hct MCV MCHC RDW Plt Count Lymph % (Auto) [place] % (Auto) Lymph # Seg Neutrophils % Seg Neuts % (Manual) Lymphocytes % (Manual) Monocytes % (Manual) Nucleated RBC % Seg Neutrophils # Seg Neutrophils # Man Lymphocytes # (Manual) Monocytes # (Manual) PT INR POC ABG pH POC ABG pCO2 POC ABG pO2 Sodium Potassium Chloride Carbon Dioxide BUN Creatinine Glucose POC Glucose 169 H 133 H Lactic Acid 2.90 H* Calcium Phosphorus Magnesium Total Bilirubin Direct Bilirubin AST C-Reactive Protein Total Protein Albumin Urine Creatinine Ur Creatinine 24 Hour Crossmatch 02/28/18 02/28/18 02/28/18 00:23 05:00 05:02 WBC RBC Hgb Hct MCV MCHC RDW Plt Count Lymph % (Auto) [place] % (Auto) Lymph # Seg Neutrophils % Seg Neuts % (Manual) Lymphocytes % (Manual) Monocytes % (Manual) Nucleated RBC % Seg Neutrophils # Seg Neutrophils # Man Lymphocytes # (Manual) Monocytes # (Manual) PT INR POC ABG pH POC ABG pCO2 POC ABG pO2 Sodium Potassium Chloride Carbon Dioxide BUN Creatinine Glucose POC Glucose 161 H 116 H Lactic Acid 2.70 H* Calcium Phosphorus Magnesium Total Bilirubin Direct Bilirubin AST C-Reactive Protein Total Protein Albumin Urine Creatinine Ur Creatinine 24 Hour Crossmatch 02/28/18 02/28/18 02/28/18 05:28 07:04 09:00 WBC 22.3 H RBC 2.63 L Hgb 7.6 L Hct 24.1 L MCV MCHC 31 L RDW 17.4 H Plt Count Lymph % (Auto) [place] % (Auto) Lymph # Seg Neutrophils % Seg Neuts % (Manual) 84.0 H Lymphocytes % (Manual) 8.0 L Monocytes % (Manual) Nucleated RBC % Seg Neutrophils # Seg Neutrophils # Man 18.7 H Lymphocytes # (Manual) Monocytes # (Manual) 1.1 H PT INR POC ABG pH 7.477 H POC ABG pCO2 24.6 L POC ABG pO2 57 L Sodium Potassium Chloride Carbon Dioxide BUN Creatinine Glucose POC Glucose Lactic Acid 3.10 H* Calcium Phosphorus Magnesium Total Bilirubin Direct Bilirubin AST C-Reactive Protein Total Protein Albumin Urine Creatinine Ur Creatinine 24 Hour Crossmatch 02/28/18 02/28/18 02/28/18 09:00 11:36 17:10 WBC RBC Hgb Hct MCV MCHC RDW Plt Count Lymph % (Auto) [place] % (Auto) Lymph # Seg Neutrophils % Seg Neuts % (Manual) Lymphocytes % (Manual) Monocytes % (Manual) Nucleated RBC % Seg Neutrophils # Seg Neutrophils # Man Lymphocytes # (Manual) Monocytes # (Manual) PT INR POC ABG pH POC ABG pCO2 POC ABG pO2 Sodium Potassium 3.3 L 3.5 L Chloride Carbon Dioxide 21 L 19 L BUN 76 H 69 H Creatinine 2.8 H 2.5 H Glucose 104 H 124 H POC Glucose 107 H Lactic Acid Calcium 7.6 L 7.3 L Phosphorus 1.50 L Magnesium Total Bilirubin Direct Bilirubin AST C-Reactive Protein Total Protein Albumin Urine Creatinine Ur Creatinine 24 Hour Crossmatch 02/28/18 02/28/18 03/01/18 17:36 23:40 06:25 WBC RBC Hgb Hct MCV MCHC RDW Plt Count Lymph % (Auto) [place] % (Auto) Lymph # Seg Neutrophils % Seg Neuts % (Manual) Lymphocytes % (Manual) Monocytes % (Manual) Nucleated RBC % Seg Neutrophils # Seg Neutrophils # Man Lymphocytes # (Manual) Monocytes # (Manual) PT INR POC ABG pH 7.542 H POC ABG pCO2 23.3 L POC ABG pO2 62 L Sodium Potassium Chloride Carbon Dioxide BUN Creatinine Glucose POC Glucose 151 H 111 H Lactic Acid Calcium Phosphorus Magnesium Total Bilirubin Direct Bilirubin AST C-Reactive Protein Total Protein Albumin Urine Creatinine Ur Creatinine 24 Hour Crossmatch 03/01/18 03/01/18 03/02/18 10:00 12:12 05:21 WBC RBC Hgb Hct MCV MCHC RDW Plt Count Lymph % (Auto) [place] % (Auto) Lymph # Seg Neutrophils % Seg Neuts % (Manual) Lymphocytes % (Manual) Monocytes % (Manual) Nucleated RBC % Seg Neutrophils # Seg Neutrophils # Man Lymphocytes # (Manual) Monocytes # (Manual) PT INR POC ABG pH 7.473 H POC ABG pCO2 21.5 L POC ABG pO2 79 L Sodium Potassium 3.5 L Chloride Carbon Dioxide 18 L BUN 66 H Creatinine 2.8 H Glucose 103 H POC Glucose 176 H Lactic Acid Calcium 7.5 L Phosphorus Magnesium Total Bilirubin Direct Bilirubin AST C-Reactive Protein Total Protein Albumin Urine Creatinine Ur Creatinine 24 Hour Crossmatch 03/02/18 03/02/18 03/02/18 06:00 06:00 11:47 WBC 18.2 H RBC 2.43 L Hgb 7.2 L Hct 22.6 L MCV MCHC RDW 17.6 H Plt Count Lymph % (Auto) [place] % (Auto) Lymph # Seg Neutrophils % Seg Neuts % (Manual) Lymphocytes % (Manual) Monocytes % (Manual) Nucleated RBC % Seg Neutrophils # Seg Neutrophils # Man Lymphocytes # (Manual) Monocytes # (Manual) PT INR POC ABG pH POC ABG pCO2 POC ABG pO2 Sodium Potassium Chloride Carbon Dioxide 17 L BUN 68 H Creatinine 3.1 H Glucose 106 H POC Glucose 136 H Lactic Acid Calcium 7.2 L Phosphorus Magnesium Total Bilirubin Direct Bilirubin AST C-Reactive Protein Total Protein Albumin Urine Creatinine Ur Creatinine 24 Hour Crossmatch 03/02/18 03/03/18 03/03/18 17:35 00:54 03:38 WBC RBC Hgb Hct MCV MCHC RDW Plt Count Lymph % (Auto) [place] % (Auto) Lymph # Seg Neutrophils % Seg Neuts % (Manual) Lymphocytes % (Manual) Monocytes % (Manual) Nucleated RBC % Seg Neutrophils # Seg Neutrophils # Man Lymphocytes # (Manual) Monocytes # (Manual) PT INR POC ABG pH 7.451 H POC ABG pCO2 20.5 L POC ABG pO2 Sodium Potassium Chloride Carbon Dioxide BUN Creatinine Glucose POC Glucose 109 H 131 H Lactic Acid Calcium Phosphorus Magnesium Total Bilirubin Direct Bilirubin AST C-Reactive Protein Total Protein Albumin Urine Creatinine Ur Creatinine 24 Hour Crossmatch 03/03/18 03/03/18 03/03/18 04:30 06:15 06:15 WBC 21.1 H RBC 2.20 L Hgb 6.3 L Hct 20.8 L MCV 95 H MCHC 30 L RDW 17.8 H Plt Count Lymph % (Auto) [place] % (Auto) Lymph # Seg Neutrophils % Seg Neuts % (Manual) 71.0 H Lymphocytes % (Manual) 8.0 L Monocytes % (Manual) Nucleated RBC % Seg Neutrophils # Seg Neutrophils # Man 15.0 H Lymphocytes # (Manual) Monocytes # (Manual) 1.3 H PT INR POC ABG pH POC ABG pCO2 POC ABG pO2 Sodium 130 L D Potassium Chloride 96.4 L Carbon Dioxide 14 L BUN 69 H Creatinine 3.1 H Glucose POC Glucose Lactic Acid Calcium 7.0 L Phosphorus 5.10 H Magnesium Total Bilirubin Direct Bilirubin AST C-Reactive Protein Total Protein Albumin Urine Creatinine Ur Creatinine 24 Hour Crossmatch 03/03/18 03/03/18 03/03/18 08:37 09:38 12:13 WBC RBC Hgb Hct MCV MCHC RDW Plt Count Lymph % (Auto) [place] % (Auto) Lymph # Seg Neutrophils % Seg Neuts % (Manual) Lymphocytes % (Manual) Monocytes % (Manual) Nucleated RBC % Seg Neutrophils # Seg Neutrophils # Man Lymphocytes # (Manual) Monocytes # (Manual) PT INR POC ABG pH POC ABG pCO2 23.8 L POC ABG pO2 156 H Sodium Potassium Chloride Carbon Dioxide BUN Creatinine Glucose POC Glucose 119 H Lactic Acid Calcium Phosphorus Magnesium Total Bilirubin Direct Bilirubin AST C-Reactive Protein Total Protein Albumin Urine Creatinine Ur Creatinine 24 Hour Crossmatch See Detail 03/03/18 03/03/18 03/04/18 12:37 18:05 00:59 WBC RBC Hgb Hct MCV MCHC RDW Plt Count Lymph % (Auto) [place] % (Auto) Lymph # Seg Neutrophils % Seg Neuts % (Manual) Lymphocytes % (Manual) Monocytes % (Manual) Nucleated RBC % Seg Neutrophils # Seg Neutrophils # Man Lymphocytes # (Manual) Monocytes # (Manual) PT INR POC ABG pH POC ABG pCO2 POC ABG pO2 Sodium Potassium Chloride Carbon Dioxide BUN Creatinine Glucose POC Glucose 154 H 159 H Lactic Acid Calcium Phosphorus Magnesium 1.40 L Total Bilirubin Direct Bilirubin AST C-Reactive Protein Total Protein Albumin Urine Creatinine Ur Creatinine 24 Hour Crossmatch 03/04/18 03/04/18 03/04/18 04:27 05:30 05:30 WBC 22.6 H RBC 2.46 L Hgb 7.1 L Hct 21.7 L MCV MCHC RDW 17.2 H Plt Count Lymph % (Auto) [place] % (Auto) Lymph # Seg Neutrophils % Seg Neuts % (Manual) 84.0 H Lymphocytes % (Manual) 5.0 L Monocytes % (Manual) Nucleated RBC % Seg Neutrophils # Seg Neutrophils # Man 19.0 H Lymphocytes # (Manual) 1.1 L Monocytes # (Manual) PT INR POC ABG pH 7.486 H POC ABG pCO2 24.8 L POC ABG pO2 Sodium 135 L Potassium Chloride 96.2 L Carbon Dioxide 19 L BUN 69 H Creatinine 3.1 H Glucose 121 H POC Glucose Lactic Acid Calcium 7.1 L Phosphorus Magnesium Total Bilirubin Direct Bilirubin AST C-Reactive Protein 19.80 H Total Protein Albumin Urine Creatinine Ur Creatinine 24 Hour Crossmatch 03/04/18 03/04/18 03/04/18 05:38 11:47 17:53 WBC RBC Hgb Hct MCV MCHC RDW Plt Count Lymph % (Auto) [place] % (Auto) Lymph # Seg Neutrophils % Seg Neuts % (Manual) Lymphocytes % (Manual) Monocytes % (Manual) Nucleated RBC % Seg Neutrophils # Seg Neutrophils # Man Lymphocytes # (Manual) Monocytes # (Manual) PT INR POC ABG pH POC ABG pCO2 POC ABG pO2 Sodium Potassium Chloride Carbon Dioxide BUN Creatinine Glucose POC Glucose 134 H 109 H 113 H Lactic Acid Calcium Phosphorus Magnesium Total Bilirubin Direct Bilirubin AST C-Reactive Protein Total Protein Albumin Urine Creatinine Ur Creatinine 24 Hour Crossmatch 03/05/18 03/05/18 03/05/18 00:22 05:15 05:15 WBC 24.3 H RBC 2.29 L Hgb 6.8 L Hct 20.3 L MCV MCHC RDW 16.7 H Plt Count Lymph % (Auto) [place] % (Auto) Lymph # Seg Neutrophils % Seg Neuts % (Manual) 88.0 H Lymphocytes % (Manual) 3.0 L Monocytes % (Manual) Nucleated RBC % Seg Neutrophils # Seg Neutrophils # Man 21.4 H Lymphocytes # (Manual) 0.7 L Monocytes # (Manual) PT INR POC ABG pH POC ABG pCO2 POC ABG pO2 Sodium 132 L Potassium Chloride 91.2 L Carbon Dioxide BUN 69 H Creatinine 3.3 H Glucose POC Glucose 113 H Lactic Acid Calcium 6.9 L Phosphorus Magnesium Total Bilirubin Direct Bilirubin AST C-Reactive Protein Total Protein Albumin Urine Creatinine Ur Creatinine 24 Hour Crossmatch 03/05/18 03/05/18 03/05/18 05:36 11:51 16:00 WBC RBC Hgb Hct MCV MCHC RDW Plt Count Lymph % (Auto) [place] % (Auto) Lymph # Seg Neutrophils % Seg Neuts % (Manual) Lymphocytes % (Manual) Monocytes % (Manual) Nucleated RBC % Seg Neutrophils # Seg Neutrophils # Man Lymphocytes # (Manual) Monocytes # (Manual) PT INR POC ABG pH 7.519 H POC ABG pCO2 27.0 L POC ABG pO2 68 L Sodium Potassium Chloride Carbon Dioxide BUN Creatinine Glucose POC Glucose 118 H 131 H Lactic Acid Calcium Phosphorus Magnesium Total Bilirubin Direct Bilirubin AST C-Reactive Protein Total Protein Albumin Urine Creatinine Ur Creatinine 24 Hour Crossmatch 03/06/18 03/06/18 03/06/18 00:00 01:27 04:44 WBC 24.5 H RBC 2.90 L Hgb 8.5 L Hct 25.8 L MCV MCHC RDW 16.3 H Plt Count Lymph % (Auto) [place] % (Auto) Lymph # Seg Neutrophils % Seg Neuts % (Manual) 96.0 H Lymphocytes % (Manual) 1.5 L Monocytes % (Manual) Nucleated RBC % 1.0 H Seg Neutrophils # Seg Neutrophils # Man 23.5 H Lymphocytes # (Manual) 0.4 L Monocytes # (Manual) PT INR POC ABG pH POC ABG pCO2 POC ABG pO2 Sodium Potassium Chloride 92.9 L Carbon Dioxide BUN 67 H Creatinine 3.4 H Glucose POC Glucose 127 H Lactic Acid Calcium 7.2 L Phosphorus Magnesium Total Bilirubin Direct Bilirubin AST C-Reactive Protein Total Protein Albumin Urine Creatinine Ur Creatinine 24 Hour Crossmatch 03/06/18 03/06/18 03/06/18 04:54 05:54 12:08 WBC RBC Hgb Hct MCV MCHC RDW Plt Count Lymph % (Auto) [place] % (Auto) Lymph # Seg Neutrophils % Seg Neuts % (Manual) Lymphocytes % (Manual) Monocytes % (Manual) Nucleated RBC % Seg Neutrophils # Seg Neutrophils # Man Lymphocytes # (Manual) Monocytes # (Manual) PT INR POC ABG pH 7.551 H POC ABG pCO2 29.5 L POC ABG pO2 57 L Sodium Potassium Chloride Carbon Dioxide BUN Creatinine Glucose POC Glucose 108 H 123 H Lactic Acid Calcium Phosphorus Magnesium Total Bilirubin Direct Bilirubin AST C-Reactive Protein Total Protein Albumin Urine Creatinine Ur Creatinine 24 Hour Crossmatch 03/06/18 03/07/18 03/07/18 21:16 05:00 05:00 WBC 17.5 H RBC 2.41 L Hgb 7.3 L Hct 21.5 L MCV MCHC RDW 16.6 H Plt Count Lymph % (Auto) [place] % (Auto) Lymph # Seg Neutrophils % Seg Neuts % (Manual) 97.0 H Lymphocytes % (Manual) 1.0 L Monocytes % (Manual) Nucleated RBC % Seg Neutrophils # Seg Neutrophils # Man 17.0 H Lymphocytes # (Manual) 0.2 L Monocytes # (Manual) PT INR POC ABG pH 7.639 H POC ABG pCO2 25.3 L POC ABG pO2 Sodium Potassium Chloride 90.6 L Carbon Dioxide BUN 65 H Creatinine 3.4 H Glucose POC Glucose Lactic Acid Calcium 7.3 L Phosphorus Magnesium Total Bilirubin Direct Bilirubin AST C-Reactive Protein Total Protein Albumin Urine Creatinine Ur Creatinine 24 Hour Crossmatch 03/07/18 03/08/18 03/08/18 06:32 04:30 11:54 WBC 13.9 H RBC 2.36 L Hgb 7.1 L Hct 21.2 L MCV MCHC RDW 16.5 H Plt Count Lymph % (Auto) [place] % (Auto) Lymph # Seg Neutrophils % Seg Neuts % (Manual) 91.0 H Lymphocytes % (Manual) 2.0 L Monocytes % (Manual) Nucleated RBC % Seg Neutrophils # Seg Neutrophils # Man 12.6 H Lymphocytes # (Manual) 0.3 L Monocytes # (Manual) PT INR POC ABG pH 7.498 H POC ABG pCO2 30.2 L POC ABG pO2 44 L Sodium Potassium Chloride Carbon Dioxide BUN Creatinine Glucose POC Glucose 121 H Lactic Acid Calcium Phosphorus Magnesium Total Bilirubin Direct Bilirubin AST C-Reactive Protein Total Protein Albumin Urine Creatinine Ur Creatinine 24 Hour Crossmatch 03/08/18 03/08/18 03/09/18 18:29 23:52 05:45 WBC 12.9 H RBC 2.31 L Hgb 6.9 L Hct 20.9 L MCV MCHC RDW 16.7 H Plt Count Lymph % (Auto) 5.5 L [place] % (Auto) Lymph # 0.7 L Seg Neutrophils % 89.2 H Seg Neuts % (Manual) Lymphocytes % (Manual) Monocytes % (Manual) Nucleated RBC % Seg Neutrophils # 11.5 H Seg Neutrophils # Man Lymphocytes # (Manual) Monocytes # (Manual) PT INR POC ABG pH POC ABG pCO2 POC ABG pO2 Sodium Potassium Chloride Carbon Dioxide BUN Creatinine Glucose POC Glucose 106 H 115 H Lactic Acid Calcium Phosphorus Magnesium Total Bilirubin Direct Bilirubin AST C-Reactive Protein Total Protein Albumin Urine Creatinine Ur Creatinine 24 Hour Crossmatch 03/09/18 03/09/18 03/09/18 06:13 12:00 12:20 WBC RBC Hgb Hct MCV MCHC RDW Plt Count Lymph % (Auto) [place] % (Auto) Lymph # Seg Neutrophils % Seg Neuts % (Manual) Lymphocytes % (Manual) Monocytes % (Manual) Nucleated RBC % Seg Neutrophils # Seg Neutrophils # Man Lymphocytes # (Manual) Monocytes # (Manual) PT INR POC ABG pH POC ABG pCO2 POC ABG pO2 Sodium Potassium 3.3 L Chloride 82.2 L Carbon Dioxide 19 L D BUN 62 H Creatinine 3.0 H Glucose POC Glucose 122 H 113 H Lactic Acid Calcium 6.1 L D Phosphorus Magnesium Total Bilirubin Direct Bilirubin AST C-Reactive Protein Total Protein Albumin Urine Creatinine Ur Creatinine 24 Hour Crossmatch 03/09/18 03/09/18 03/10/18 13:30 17:38 06:55 WBC RBC 1.94 L Hgb 6.0 L Hct 17.8 L* MCV MCHC RDW 16.6 H Plt Count Lymph % (Auto) 4.6 L [place] % (Auto) Lymph # 0.5 L Seg Neutrophils % 90.0 H Seg Neuts % (Manual) Lymphocytes % (Manual) Monocytes % (Manual) Nucleated RBC % Seg Neutrophils # 9.1 H Seg Neutrophils # Man Lymphocytes # (Manual) Monocytes # (Manual) PT INR POC ABG pH POC ABG pCO2 POC ABG pO2 Sodium Potassium Chloride Carbon Dioxide BUN Creatinine Glucose POC Glucose Lactic Acid Calcium Phosphorus Magnesium Total Bilirubin Direct Bilirubin AST C-Reactive Protein Total Protein Albumin Urine Creatinine 69.2 H 69.2 H Ur Creatinine 24 Hour 0.3 L Crossmatch 03/10/18 03/10/18 03/10/18 06:55 09:00 12:14 WBC RBC Hgb Hct MCV MCHC RDW Plt Count Lymph % (Auto) [place] % (Auto) Lymph # Seg Neutrophils % Seg Neuts % (Manual) Lymphocytes % (Manual) Monocytes % (Manual) Nucleated RBC % Seg Neutrophils # Seg Neutrophils # Man Lymphocytes # (Manual) Monocytes # (Manual) PT INR POC ABG pH POC ABG pCO2 POC ABG pO2 Sodium 135 L Potassium Chloride 90.2 L Carbon Dioxide BUN 82 H Creatinine 3.9 H Glucose POC Glucose 107 H Lactic Acid Calcium 7.6 L D Phosphorus Magnesium Total Bilirubin Direct Bilirubin AST C-Reactive Protein Total Protein Albumin Urine Creatinine Ur Creatinine 24 Hour Crossmatch See Detail 03/10/18 03/10/18 03/11/18 18:14 20:02 14:25 WBC RBC Hgb 7.7 L Hct 23.3 L MCV MCHC RDW Plt Count Lymph % (Auto) [place] % (Auto) Lymph # Seg Neutrophils % Seg Neuts % (Manual) Lymphocytes % (Manual) Monocytes % (Manual) Nucleated RBC % Seg Neutrophils # Seg Neutrophils # Man Lymphocytes # (Manual) Monocytes # (Manual) PT INR POC ABG pH POC ABG pCO2 POC ABG pO2 Sodium Potassium Chloride 94.6 L Carbon Dioxide BUN 69 H Creatinine 3.7 H Glucose POC Glucose 126 H Lactic Acid Calcium 8.0 L Phosphorus Magnesium Total Bilirubin Direct Bilirubin AST C-Reactive Protein Total Protein Albumin Urine Creatinine Ur Creatinine 24 Hour Crossmatch 03/12/18 03/12/18 03/12/18 04:19 05:45 05:45 WBC RBC 2.44 L Hgb 7.4 L Hct 22.6 L MCV MCHC RDW 16.1 H Plt Count Lymph % (Auto) [place] % (Auto) Lymph # Seg Neutrophils % Seg Neuts % (Manual) Lymphocytes % (Manual) Monocytes % (Manual) Nucleated RBC % Seg Neutrophils # Seg Neutrophils # Man Lymphocytes # (Manual) Monocytes # (Manual) PT INR POC ABG pH POC ABG pCO2 POC ABG pO2 71 L Sodium Potassium Chloride 95.1 L Carbon Dioxide BUN 72 H Creatinine 4.0 H Glucose POC Glucose Lactic Acid Calcium 7.9 L Phosphorus Magnesium Total Bilirubin Direct Bilirubin AST C-Reactive Protein Total Protein Albumin Urine Creatinine Ur Creatinine 24 Hour Crossmatch 03/13/18 03/13/18 03/13/18 06:30 12:38 18:32 WBC RBC Hgb Hct MCV MCHC RDW Plt Count Lymph % (Auto) [place] % (Auto) Lymph # Seg Neutrophils % Seg Neuts % (Manual) Lymphocytes % (Manual) Monocytes % (Manual) Nucleated RBC % Seg Neutrophils # Seg Neutrophils # Man Lymphocytes # (Manual) Monocytes # (Manual) PT INR POC ABG pH 7.287 L POC ABG pCO2 54.6 H POC ABG pO2 78 L Sodium 136 L Potassium Chloride 91.8 L Carbon Dioxide BUN 76 H Creatinine 4.1 H Glucose POC Glucose 106 H Lactic Acid Calcium 8.0 L Phosphorus Magnesium Total Bilirubin Direct Bilirubin AST C-Reactive Protein Total Protein Albumin Urine Creatinine Ur Creatinine 24 Hour Crossmatch 03/13/18 03/14/18 03/14/18 23:34 05:30 05:30 WBC RBC Hgb Hct MCV MCHC RDW Plt Count Lymph % (Auto) [place] % (Auto) Lymph # Seg Neutrophils % Seg Neuts % (Manual) Lymphocytes % (Manual) Monocytes % (Manual) Nucleated RBC % Seg Neutrophils # Seg Neutrophils # Man Lymphocytes # (Manual) Monocytes # (Manual) PT INR POC ABG pH POC ABG pCO2 POC ABG pO2 Sodium 135 L Potassium Chloride 87.4 L Carbon Dioxide BUN 60 H Creatinine 3.7 H Glucose 102 H POC Glucose 111 H Lactic Acid Calcium 7.9 L Phosphorus Magnesium 1.60 L Total Bilirubin Direct Bilirubin AST C-Reactive Protein Total Protein Albumin Urine Creatinine Ur Creatinine 24 Hour Crossmatch 03/14/18 03/14/18 03/14/18 08:30 12:10 13:10 WBC RBC 2.58 L Hgb 7.9 L Hct 24.2 L MCV MCHC RDW 16.0 H Plt Count Lymph % (Auto) [place] % (Auto) Lymph # Seg Neutrophils % Seg Neuts % (Manual) Lymphocytes % (Manual) Monocytes % (Manual) Nucleated RBC % Seg Neutrophils # Seg Neutrophils # Man Lymphocytes # (Manual) Monocytes # (Manual) PT INR POC ABG pH 7.483 H POC ABG pCO2 30.7 L POC ABG pO2 55 L Sodium Potassium Chloride Carbon Dioxide BUN Creatinine Glucose POC Glucose 118 H Lactic Acid Calcium Phosphorus Magnesium Total Bilirubin Direct Bilirubin AST C-Reactive Protein Total Protein Albumin Urine Creatinine Ur Creatinine 24 Hour Crossmatch 03/14/18 03/15/18 03/15/18 18:05 06:45 06:45 WBC RBC 2.39 L Hgb 7.2 L Hct 22.0 L MCV MCHC RDW 16.2 H Plt Count 130 L Lymph % (Auto) 8.7 L [place] % (Auto) 8.7 H Lymph # 0.8 L Seg Neutrophils % 81.5 H Seg Neuts % (Manual) Lymphocytes % (Manual) Monocytes % (Manual) Nucleated RBC % Seg Neutrophils # Seg Neutrophils # Man Lymphocytes # (Manual) Monocytes # (Manual) PT INR POC ABG pH POC ABG pCO2 POC ABG pO2 Sodium 133 L Potassium Chloride 90.7 L Carbon Dioxide BUN 64 H Creatinine 4.7 H Glucose 118 H POC Glucose 129 H Lactic Acid Calcium 7.9 L Phosphorus Magnesium Total Bilirubin Direct Bilirubin AST 55 H C-Reactive Protein Total Protein 6.2 L Albumin 2.8 L Urine Creatinine Ur Creatinine 24 Hour Crossmatch 03/15/18 03/15/18 03/15/18 12:22 18:01 Unknown WBC RBC Hgb Hct MCV MCHC RDW Plt Count Lymph % (Auto) [place] % (Auto) Lymph # Seg Neutrophils % Seg Neuts % (Manual) Lymphocytes % (Manual) Monocytes % (Manual) Nucleated RBC % Seg Neutrophils # Seg Neutrophils # Man Lymphocytes # (Manual) Monocytes # (Manual) PT INR POC ABG pH POC ABG pCO2 POC ABG pO2 Sodium Potassium Chloride Carbon Dioxide BUN Creatinine Glucose POC Glucose 140 H 162 H Lactic Acid 2.60 H* Calcium Phosphorus Magnesium Total Bilirubin Direct Bilirubin AST C-Reactive Protein Total Protein Albumin Urine Creatinine Ur Creatinine 24 Hour Crossmatch 03/16/18 03/16/18 03/16/18 00:13 05:26 05:45 WBC RBC Hgb Hct MCV MCHC RDW Plt Count Lymph % (Auto) [place] % (Auto) Lymph # Seg Neutrophils % Seg Neuts % (Manual) Lymphocytes % (Manual) Monocytes % (Manual) Nucleated RBC % Seg Neutrophils # Seg Neutrophils # Man Lymphocytes # (Manual) Monocytes # (Manual) PT INR POC ABG pH POC ABG pCO2 POC ABG pO2 Sodium 128 L Potassium Chloride 85.4 L Carbon Dioxide 21 L BUN 65 H Creatinine 4.8 H Glucose 201 H POC Glucose 141 H 162 H Lactic Acid Calcium 8.0 L Phosphorus Magnesium Total Bilirubin Direct Bilirubin AST C-Reactive Protein Total Protein Albumin Urine Creatinine Ur Creatinine 24 Hour Crossmatch 03/16/18 03/16/18 03/16/18 05:45 05:45 12:03 WBC RBC 2.43 L Hgb 7.5 L Hct 22.5 L MCV MCHC RDW 16.3 H Plt Count Lymph % (Auto) [place] % (Auto) Lymph # Seg Neutrophils % Seg Neuts % (Manual) 89.0 H Lymphocytes % (Manual) 4.0 L Monocytes % (Manual) Nucleated RBC % Seg Neutrophils # Seg Neutrophils # Man 9.2 H Lymphocytes # (Manual) 0.4 L Monocytes # (Manual) PT INR POC ABG pH POC ABG pCO2 POC ABG pO2 Sodium Potassium Chloride Carbon Dioxide BUN Creatinine Glucose POC Glucose 157 H Lactic Acid Calcium Phosphorus Magnesium Total Bilirubin Direct Bilirubin 0.5 H AST 55 H C-Reactive Protein Total Protein Albumin 2.8 L Urine Creatinine Ur Creatinine 24 Hour Crossmatch 03/17/18 03/17/18 03/17/18 00:03 04:40 04:40 WBC RBC 2.42 L Hgb 7.4 L Hct 22.3 L MCV MCHC RDW 16.1 H Plt Count Lymph % (Auto) [place] % (Auto) Lymph # Seg Neutrophils % Seg Neuts % (Manual) Lymphocytes % (Manual) Monocytes % (Manual) Nucleated RBC % Seg Neutrophils # Seg Neutrophils # Man Lymphocytes # (Manual) Monocytes # (Manual) PT INR POC ABG pH POC ABG pCO2 POC ABG pO2 Sodium 133 L Potassium 3.4 L Chloride 90.3 L Carbon Dioxide BUN 45 H Creatinine 3.6 H Glucose POC Glucose 108 H Lactic Acid Calcium 8.2 L Phosphorus Magnesium Total Bilirubin Direct Bilirubin AST C-Reactive Protein Total Protein Albumin Urine Creatinine Ur Creatinine 24 Hour Crossmatch Allied health notes reviewed: RT
--- NOTE | 2018-03-17 13:38 | Progress Note ---
Assessment and Plan impression * Acute renal failure. Most likely secondary to ATN * Status post cardiac arrest * Respiratory failure * Encephalopathy * Sepsis * CVA * hypokalemia Recommendations * No evidence of renal recovery at this time * Continue maintenance dialysis as needed. Plan to dialyze him again tomorrow if stable * Avoid nephrotoxins * Adjust diet and meds for GFR less than 10 * Monitor fluid status and electrolytes closely * His overall prognosis appears to be extremely poor Subjective Date of service: 03/17/18 Principal diagnosis: Acute Hypoxemic Resp Failure; Severe Sepsis; Aspiration Pneumonai (HCAP) Interval history: patient remains on the ventilator. On 50% FiO2. Sedated. Currently off pressors. On amiodarone drip Objective - Vital Signs Vital signs: Vital Signs - 12hr 03/17/18 03/17/18 03/17/18 02:00 03:00 03:20 Temperature 98.6 F Pulse Rate 115 H 108 H Pulse Rate [ Anterior Bilateral Throughout] Pulse Rate [ From Monitor] Respiratory 26 H 24 Rate Respiratory Rate [Anterior Bilateral Throughout] Blood Pressure 146/73 124/65 O2 Sat by Pulse 95 98 Oximetry 03/17/18 03/17/18 03/17/18 04:00 04:01 04:15 Temperature Pulse Rate 108 H 105 H Pulse Rate [ Anterior Bilateral Throughout] Pulse Rate [ From Monitor] Respiratory 26 H Rate Respiratory Rate [Anterior Bilateral Throughout] Blood Pressure 114/69 108/66 O2 Sat by Pulse 97 96 98 Oximetry 03/17/18 03/17/18 03/17/18 05:00 06:01 07:00 Temperature Pulse Rate 119 H 115 H 100 H Pulse Rate [ Anterior Bilateral Throughout] Pulse Rate [ From Monitor] Respiratory 26 H 26 H 26 H Rate Respiratory Rate [Anterior Bilateral Throughout] Blood Pressure 114/69 115/64 132/68 O2 Sat by Pulse 96 94 94 Oximetry 03/17/18 03/17/18 03/17/18 07:48 07:51 08:00 Temperature 98.8 F Pulse Rate 106 H 96 H Pulse Rate [ 104 H Anterior Bilateral Throughout] Pulse Rate [ 103 H From Monitor] Respiratory 22 Rate Respiratory 26 H Rate [Anterior Bilateral Throughout] Blood Pressure 117/68 127/64 O2 Sat by Pulse 98 99 Oximetry 03/17/18 03/17/18 03/17/18 08:25 09:00 10:00 Temperature Pulse Rate 101 H 101 H Pulse Rate [ 89 Anterior Bilateral Throughout] Pulse Rate [ From Monitor] Respiratory 21 21 Rate Respiratory 22 Rate [Anterior Bilateral Throughout] Blood Pressure 106/63 108/62 O2 Sat by Pulse 97 94 Oximetry 03/17/18 03/17/18 11:19 12:15 Temperature Pulse Rate 102 H Pulse Rate [ Anterior Bilateral Throughout] Pulse Rate [ 103 H From Monitor] Respiratory Rate Respiratory Rate [Anterior Bilateral Throughout] Blood Pressure 110/72 O2 Sat by Pulse 96 Oximetry - General Appearance General appearance: well-developed, well-nourished, appears stated age, intubated EENT: PERRL, mucous membranes moist Neck: no JVD, other (left IJ Vas-Cath in place) Respiratory: Present: Clear to Ascultation Cardiology: regular, normal heart rate, S1S2, no murmurs Gastrointestinal: normal, normoactive bowel sounds Integumentary: no rash - Lab 03/17/18 04:40 03/17/18 04:40 Most recent lab results Calcium 8.2 mg/dL (8.4-10.2) L 03/17/18 04:40 Phosphorus 5.10 mg/dL (2.5-4.5) H 03/03/18 04:30 Magnesium 1.60 mg/dL (1.7-2.3) L 03/14/18 05:30 Urine Creatinine 69.2 mg/dL (0.1-20.0) H 03/09/18 17:38 Urine Sodium 67 mmol/L 02/26/18 13:08
[2018-03-17] MEDS ORDERED: XYLOCAINE MPF 2% ONE ×2 (14:30→15:45)
[2018-03-17] MEDS ORDERED: WATER FOR IRRIG STERILE IR ONE (14:31)
[2018-03-17] MEDS ORDERED: NACL 0.9% 1000 ML 1,000 ML ONE (14:36)
[2018-03-17] MEDS: CORDARONE 900 MG in D5W 482 ML IV SCH (15:00)
[2018-03-17] MEDS ORDERED: ZEMURON IV ONE (15:45)
[2018-03-17] MEDS ORDERED: AMIDATE IV ONE (15:45)
[2018-03-17] MEDS ORDERED: DIPRIVAN 10 MG/ML IV ONE (15:46)
--- NOTE | 2018-03-17 16:38 | Post Operative Note ---
Date of procedure: 03/17/18 Pre-op diagnosis: ventilator dependent respiratory failure Post-op diagnosis: same Findings: good positioning of tracheostomy on fiberoptic bronchoscopy without bleeding Procedure: Percutaneous tracheostomy placement Anesthesia: GETA, local Surgeon: ANDRE FALLON Estimated blood loss: minimal Pathology: none Condition: stable Disposition: ICU
--- NOTE | 2018-03-17 16:52 | Operative Report ---
Operative Report Operative Report: Date of procedure: 03/17/18 Pre-op diagnosis: ventilator dependent respiratory failure Post-op diagnosis: same Findings: good positioning of tracheostomy on fiberoptic bronchoscopy without bleeding Procedure: Percutaneous tracheostomy placement Anesthesia: YVON, local Surgeon: ANDRE FALLON Estimated blood loss: minimal Pathology: none Condition: stable Disposition: ICU HPI an indication: Patient is a 72-year-old male with a diagnosis of ventilator dependent respiratory failure. Despite attempts, he has been unable to be weaned from the ventilator. Tracheostomy was requested. All risks, benefits, alternatives to surgery were discussed with the patient's son ABBEY Guerrero who is his primary decision maker, and consent was signed. Procedure in detail: The patient was identified in the hospital bed in the ICU. Consent was verified on the chart timeout was performed. The neck was prepped and draped in usual sterile fashion. Anesthesia was administered. Dr. Bradley performed fiberoptic bronchoscopy throughout the entire procedure (see separate procedure note). 1% lidocaine was infiltrated into the skin and subcutaneous tissue approximately 2 fingerbreadths above the jose [place]uis. A 2 cm incision was made in a horizontal fashion using a 15 blade. Using a hemostat the soft tissues were bluntly dissected until the trachea was encountered. The introducer needle was then used to enter the trachea under direct visualization, through which the wire was passed down the trachea towards the [place]. Introducer needle was then removed. The trachea was then serially dilated, after which a 8 [place] tracheostomy tube was inserted. The balloon was inflated, patient placed back on ventilator, and tidal volumes assessed which were satisfactory. The bronchoscope was then placed this through the tracheostomy and showed good positioning of the tracheostomy above the [place] and no bleeding. The tracheostomy was sutured into place using 2-0 Prolene sutures. A drain sponge was placed between the skin and tracheostomy. The tracheostomy was secured to the patient's neck using a tracheostomy strap. A post op chest x-ray showed the tracheostomy in good positioning. The patient tolerated the procedure well. All sharps were disposed of appropriately.
--- NOTE | 2018-03-17 17:06 | XRay Report ---
FINAL REPORT EXAM: XR CHEST 1V AP HISTORY: trach placement TECHNIQUE: Single, portable chest x-ray. PRIORS: 14 March 2018. FINDINGS: ET tube replaced by a tracheostomy tube. Left IJ central venous catheter and left PICC line stable. Cardiac silhouette also stable. Lungs again show vascular congestion centrally about the same. Patchy and partially confluent opacities in bilateral lower lungs and probable small bilateral pleural effusions, overall similar given differences in technique. No apparent pneumothorax. IMPRESSION: 1. Replacement of ET tube I tracheostomy tube in the interval. 2. Otherwise, stable.
--- NOTE | 2018-03-17 17:53 | Progress Note ---
Hospitalist Physical - Constitutional Vitals: Temp Pulse Resp BP Pulse Ox 97.5 F L 89 16 86/59 100 03/17/18 16:25 03/17/18 16:40 03/17/18 16:40 03/17/18 16:40 03/17/18 16:40 General appearance: Present: no acute distress, well-nourished, other ( tracheostomy) - EENT Eyes: Present: PERRL, EOM intact - Neck Neck: Present: supple, normal ROM Results - Labs CBC & Chem 7: 03/17/18 04:40 03/17/18 04:40 Labs: Laboratory Last Values WBC 8.4 K/mm3 (4.5-11.0) 03/17/18 04:40 RBC 2.42 M/mm3 (3.65-5.03) L 03/17/18 04:40 Hgb 7.4 gm/dl (11.8-15.2) L 03/17/18 04:40 Hct 22.3 % (35.5-45.6) L 03/17/18 04:40 MCV 92 fl (84-94) 03/17/18 04:40 MCH 30 pg (28-32) 03/17/18 04:40 MCHC 33 % (32-34) 03/17/18 04:40 RDW 16.1 % (13.2-15.2) H 03/17/18 04:40 Plt Count 207 K/mm3 (140-440) 03/17/18 04:40 Lymph % (Auto) 8.7 % (13.4-35.0) L 03/15/18 06:45 [place] % (Auto) 8.7 % (0.0-7.3) H 03/15/18 06:45 Eos % (Auto) 0.8 % (0.0-4.3) 03/15/18 06:45 Baso % (Auto) 0.3 % (0.0-1.8) 03/15/18 06:45 Lymph # 0.8 K/mm3 (1.2-5.4) L 03/15/18 06:45 [place] # 0.8 K/mm3 (0.0-0.8) 03/15/18 06:45 Eos # 0.1 K/mm3 (0.0-0.4) 03/15/18 06:45 Baso # 0.0 K/mm3 (0.0-0.1) 03/15/18 06:45 Add Manual Diff Complete 03/16/18 05:45 Total Counted 100 03/16/18 05:45 Seg Neutrophils % 81.5 % (40.0-70.0) H 03/15/18 06:45 Seg Neuts % (Manual) 89.0 % (40.0-70.0) H 03/16/18 05:45 Band Neutrophils % 1.0 % 03/16/18 05:45 Lymphocytes % (Manual) 4.0 % (13.4-35.0) L 03/16/18 05:45 Reactive Lymphs % (Man) 0 % 03/16/18 05:45 Monocytes % (Manual) 5.0 % (0.0-7.3) 03/16/18 05:45 Eosinophils % (Manual) 0 % (0.0-4.3) 03/16/18 05:45 Basophils % (Manual) 0 % (0.0-1.8) 03/16/18 05:45 Metamyelocytes % 1.0 % 03/16/18 05:45 Myelocytes % 0 % 03/16/18 05:45 Promyelocytes % 0 % 03/16/18 05:45 Blast Cells % 0 % 03/16/18 05:45 Nucleated RBC % Not Reportable 03/16/18 05:45 Seg Neutrophils # 7.6 K/mm3 (1.8-7.7) 03/15/18 06:45 Seg Neutrophils # Man 9.2 K/mm3 (1.8-7.7) H 03/16/18 05:45 Band Neutrophils # 0.1 K/mm3 03/16/18 05:45 Lymphocytes # (Manual) 0.4 K/mm3 (1.2-5.4) L 03/16/18 05:45 Abs React Lymphs (Man) 0.0 K/mm3 03/16/18 05:45 Monocytes # (Manual) 0.5 K/mm3 (0.0-0.8) 03/16/18 05:45 Eosinophils # (Manual) 0.0 K/mm3 (0.0-0.4) 03/16/18 05:45 Basophils # (Manual) 0.0 K/mm3 (0.0-0.1) 03/16/18 05:45 Metamyelocytes # 0.1 K/mm3 03/16/18 05:45 Myelocytes # 0.0 K/mm3 03/16/18 05:45 Promyelocytes # 0.0 K/mm3 03/16/18 05:45 Blast Cells # 0.0 K/mm3 03/16/18 05:45 WBC Morphology Not Reportable 03/16/18 05:45 Hypersegmented Neuts Not Reportable 03/16/18 05:45 Hyposegmented Neuts Not Reportable 03/16/18 05:45 Hypogranular Neuts Not Reportable 03/16/18 05:45 Smudge Cells Not Reportable 03/16/18 05:45 Toxic Granulation Not Reportable 03/16/18 05:45 Toxic Vacuolation Not Reportable 03/16/18 05:45 Dohle Bodies Not Reportable 03/16/18 05:45 Pelger-Huet Anomaly Not Reportable 03/16/18 05:45 Erwin Rods Not Reportable 03/16/18 05:45 Platelet Estimate Cons 03/16/18 05:45 Clumped Platelets Not Reportable 03/16/18 05:45 Plt Clumps, EDTA Not Reportable 03/16/18 05:45 Large Platelets Not Reportable 03/16/18 05:45 Giant Platelets Not Reportable 03/16/18 05:45 Platelet Satelliting Not Reportable 03/16/18 05:45 Plt Morphology Comment Not Reportable 03/16/18 05:45 RBC Morphology Not Reportable 03/16/18 05:45 Dimorphic RBCs Not Reportable 03/16/18 05:45 Polychromasia Not Reportable 03/16/18 05:45 Hypochromasia 1+ 03/16/18 05:45 Poikilocytosis Not Reportable 03/16/18 05:45 Anisocytosis 1+ 03/16/18 05:45 Microcytosis Not Reportable 03/16/18 05:45 Macrocytosis Not Reportable 03/16/18 05:45 Spherocytes Not Reportable 03/16/18 05:45 Pappenheimer Bodies Not Reportable 03/16/18 05:45 Sickle Cells Not Reportable 03/16/18 05:45 Target Cells Not Reportable 03/16/18 05:45 Tear Drop Cells Not Reportable 03/16/18 05:45 Ovalocytes Not Reportable 03/16/18 05:45 Stomatocytes Few 02/28/18 09:00 Helmet Cells Not Reportable 03/16/18 05:45 [place] Bodies Not Reportable 03/16/18 05:45 [place] Rings Not Reportable 03/16/18 05:45 [place] Cells Not Reportable 03/16/18 05:45 Bite Cells Not Reportable 03/16/18 05:45 Crenated Cell Not Reportable 03/16/18 05:45 Elliptocytes Not Reportable 03/16/18 05:45 Acanthocytes (Spur) Not Reportable 03/16/18 05:45 Rouleaux Not Reportable 03/16/18 05:45 Hemoglobin C Crystals Not Reportable 03/16/18 05:45 Schistocytes Not Reportable 03/16/18 05:45 Malaria parasites Not Reportable 03/16/18 05:45 Aric Bodies Not Reportable 03/16/18 05:45 Hem Pathologist Commnt No 03/16/18 05:45 PT 21.5 Sec. (12.2-14.9) H 02/26/18 20:50 INR 1.75 (0.87-1.13) H 02/26/18 20:50 POC ABG pH 7.483 (7.35-7.45) H 03/14/18 13:10 POC ABG pCO2 30.7 (35-45) L 03/14/18 13:10 POC ABG pO2 55 (80-105) L 03/14/18 13:10 POC ABG HCO3 23.0 03/14/18 13:10 POC ABG Total CO2 24 03/14/18 13:10 POC ABG O2 Sat 91 03/14/18 13:10 POC ABG Base Excess 0 03/14/18 13:10 VBG pH 7.406 (7.320-7.420) 02/25/18 23:15 FiO2 50 % 03/14/18 13:10 Sodium 133 mmol/L (137-145) L 03/17/18 04:40 Potassium 3.4 mmol/L (3.6-5.0) L 03/17/18 04:40 Chloride 90.3 mmol/L (98-107) L 03/17/18 04:40 Carbon Dioxide 24 mmol/L (22-30) 03/17/18 04:40 Anion Gap 22 mmol/L 03/17/18 04:40 BUN 45 mg/dL (9-20) H 03/17/18 04:40 Creatinine 3.6 mg/dL (0.8-1.5) H 03/17/18 04:40 Estimated GFR 20 ml/min 03/17/18 04:40 BUN/Creatinine Ratio 13 % 03/17/18 04:40 Glucose 92 mg/dL (75-100) 03/17/18 04:40 POC Glucose 97 (70-105) 03/17/18 11:56 Lactic Acid 2.60 mmol/L (0.7-2.0) H* 03/15/18 Unknown Calcium 8.2 mg/dL (8.4-10.2) L 03/17/18 04:40 Phosphorus 5.10 mg/dL (2.5-4.5) H 03/03/18 04:30 Magnesium 1.60 mg/dL (1.7-2.3) L 03/14/18 05:30 Total Bilirubin 0.80 mg/dL (0.1-1.2) 03/16/18 05:45 Direct Bilirubin 0.5 mg/dL (0-0.2) H 03/16/18 05:45 Indirect Bilirubin 0.3 mg/dL 03/16/18 05:45 AST 55 units/L (5-40) H 03/16/18 05:45 ALT 19 units/L (7-56) 03/16/18 05:45 Alkaline Phosphatase 112 units/L (35-129) 03/16/18 05:45 C-Reactive Protein 19.80 mg/dL (0.00-1.30) H 03/04/18 05:30 Total Protein 6.3 g/dL (6.3-8.2) 03/16/18 05:45 Albumin 2.8 g/dL (3.9-5) L 03/16/18 05:45 Albumin/Globulin Ratio 0.8 % 03/16/18 05:45 Lipase 35 units/L (13-60) 02/26/18 02:58 TSH 2.670 mlU/mL (0.270-4.200) 02/26/18 00:10 Free T4 1.26 ng/dL (0.76-1.46) 02/26/18 00:10 Urine Color [place] (Yellow) 02/26/18 00:32 Urine Turbidity Hazy (Clear) 02/26/18 00:32 Urine pH 5.0 (5.0-7.0) 02/26/18 00:32 Ur Specific [place] 1.015 (1.003-1.030) 02/26/18 00:32 Urine Protein <15 mg/dl mg/dL (Negative) 02/26/18 00:32 Urine Glucose (UA) Neg mg/dL (Negative) 02/26/18 00:32 Urine Ketones Neg mg/dL (Negative) 02/26/18 00:32 Urine Blood Neg (Negative) 02/26/18 00:32 Urine Nitrite Neg (Negative) 02/26/18 00:32 Urine Bilirubin Neg (Negative) 02/26/18 00:32 Urine Urobilinogen 4.0 mg/dL (<2.0) 02/26/18 00:32 Ur Leukocyte Esterase Neg (Negative) 02/26/18 00:32 Urine WBC (Auto) 1.0 /HPF (0.0-6.0) 02/26/18 00:32 Urine RBC (Auto) 1.0 /HPF (0.0-6.0) 02/26/18 00:32 U Epithel Cells (Auto) 1.0 /HPF (0-13.0) 02/26/18 00:32 Amorphous Crystals 3+ 02/26/18 00:32 Hyaline Casts 4 /LPF 02/26/18 00:32 Urine Mucus Few /HPF 02/26/18 00:32 Urine Total Volume 490 03/09/18 17:38 Urine Creatinine 69.2 mg/dL (0.1-20.0) H 03/09/18 17:38 Ur Creatinine 24 Hour 0.3 (0.8-2.8) L 03/09/18 13:30 Height (in) 67.0 inches 03/09/18 17:38 Weight (lb) 159.0 lbs 03/09/18 17:38 Creatinine Clearance 7 03/09/18 17:38 Urine Sodium 67 mmol/L 02/26/18 13:08 Hep Bs Antigen Non-reactive (Negative) 03/11/18 14:25 Hepatitis C Antibody Non-reactive (NonReactive) 03/11/18 14:44 Blood Type A POSITIVE 03/10/18 09:00 Antibody Screen Negative 03/10/18 09:00 Crossmatch See Detail 03/10/18 09:00
--- NOTE | 2018-03-17 17:57 | Progress Note ---
Assessment and Plan Assessment and plan: 72-year-old male with history of cerebrovascular accident and hemiplegia, Alzheimer's and nonverbal from [facility] was admitted with altered mental state.Patient was febrile 103.2F as well as and respiratory failure 03/03: Went into cardiopulmonary arrest. s/p CPR per ACLS protocol , encephalopathy 03/05: Pt had recurrent seizure over the night and CT head showed right MCA acute /subacute stroke and calcified meningioma in the left frontal area 03/12: commence on renal replacemtn therapy 03/11 --Acute hypoxic respiratory failure; vent dependent Tracheostomy scheduled today per surgery Continue ventilatory support, nebulizers, pulmonary following --Severe sepsis with septic shock;Resolved, --Acute kidney injury; secondary to ATN On hemodialysis, nephrology following, HD per schedule --Metabolic encephalopathy; multifactorial supportive care --Status post cardiac arrest/anoxic encephalopathy Continue supportive care, poor prognosis --Acute/ Subacute right MCA distribution stroke Supportive care --Meningioma left frontal area 2.8 x 2.2cm Prophylactic seizure medications with Keppra --Sacral Pressure ulcer Continue wound care --History of BPH Continue Finasteride --Hyperlipidemia; statin --Anemia of chronic disease; Closely monitor transfuse as needed --DVT prophylaxis; heparin renal dose Poor prognosis Discharge planning; possible LTAC placement after tracheostomy In 1-2 days The high probability of a clinically significant, sudden or life threatening deterioration of the [neurological , renal ,metabolic and PULMONARY] system(s) required my full and direct attention, intervention and personal management. The aggregate critical care time was [33] minutes. This time is in addition to time spent performing reported procedures but includes the following: [X] Data Review and interpretation [X] Patient assessment and monitoring of vital signs [X] Documentation [X] Medication orders and management History Interval history: Since seen and examined this morning medical records reviewed Patient is orally intubated on ventilatory support, ventilator dependent Scheduled for tracheostomy today per surgery No new events reported by the nursing Vital signs reviewed Hospitalist Physical - Constitutional Vitals: Temp Pulse Resp BP Pulse Ox 97.5 F L 89 16 86/59 100 03/17/18 16:25 03/17/18 16:40 03/17/18 16:40 03/17/18 16:40 03/17/18 16:40 General appearance: Present: no acute distress, well-nourished, other ( intubated on vent and sedated) - EENT Eyes: Present: PERRL, EOM intact - Neck Neck: Present: supple, normal ROM - Respiratory Respiratory effort: normal Respiratory: bilateral: diminished, negative: rales, rhonchi, wheezing - Cardiovascular Rhythm: regular Heart Sounds: Present: S1 & S2 - Extremities Extremities: no ischemia Extremity abnormal: edema - Abdominal General gastrointestinal: soft, non-tender, non-distended, normal bowel sounds, other (PEG tube in place ) - Integumentary Integumentary: Present: clear, warm - Psychiatric Psychiatric: other (on vent) - Neurologic Neurologic: other (on vent) Results - Labs CBC & Chem 7: 03/17/18 04:40 03/17/18 04:40 Labs: Laboratory Last Values WBC 8.4 K/mm3 (4.5-11.0) 03/17/18 04:40 RBC 2.42 M/mm3 (3.65-5.03) L 03/17/18 04:40 Hgb 7.4 gm/dl (11.8-15.2) L 03/17/18 04:40 Hct 22.3 % (35.5-45.6) L 03/17/18 04:40 MCV 92 fl (84-94) 03/17/18 04:40 MCH 30 pg (28-32) 03/17/18 04:40 MCHC 33 % (32-34) 03/17/18 04:40 RDW 16.1 % (13.2-15.2) H 03/17/18 04:40 Plt Count 207 K/mm3 (140-440) 03/17/18 04:40 Lymph % (Auto) 8.7 % (13.4-35.0) L 03/15/18 06:45 [place] % (Auto) 8.7 % (0.0-7.3) H 03/15/18 06:45 Eos % (Auto) 0.8 % (0.0-4.3) 03/15/18 06:45 Baso % (Auto) 0.3 % (0.0-1.8) 03/15/18 06:45 Lymph # 0.8 K/mm3 (1.2-5.4) L 03/15/18 06:45 [place] # 0.8 K/mm3 (0.0-0.8) 03/15/18 06:45 Eos # 0.1 K/mm3 (0.0-0.4) 03/15/18 06:45 Baso # 0.0 K/mm3 (0.0-0.1) 03/15/18 06:45 Add Manual Diff Complete 03/16/18 05:45 Total Counted 100 03/16/18 05:45 Seg Neutrophils % 81.5 % (40.0-70.0) H 03/15/18 06:45 Seg Neuts % (Manual) 89.0 % (40.0-70.0) H 03/16/18 05:45 Band Neutrophils % 1.0 % 03/16/18 05:45 Lymphocytes % (Manual) 4.0 % (13.4-35.0) L 03/16/18 05:45 Reactive Lymphs % (Man) 0 % 03/16/18 05:45 Monocytes % (Manual) 5.0 % (0.0-7.3) 03/16/18 05:45 Eosinophils % (Manual) 0 % (0.0-4.3) 03/16/18 05:45 Basophils % (Manual) 0 % (0.0-1.8) 03/16/18 05:45 Metamyelocytes % 1.0 % 03/16/18 05:45 Myelocytes % 0 % 03/16/18 05:45 Promyelocytes % 0 % 03/16/18 05:45 Blast Cells % 0 % 03/16/18 05:45 Nucleated RBC % Not Reportable 03/16/18 05:45 Seg Neutrophils # 7.6 K/mm3 (1.8-7.7) 03/15/18 06:45 Seg Neutrophils # Man 9.2 K/mm3 (1.8-7.7) H 03/16/18 05:45 Band Neutrophils # 0.1 K/mm3 03/16/18 05:45 Lymphocytes # (Manual) 0.4 K/mm3 (1.2-5.4) L 03/16/18 05:45 Abs React Lymphs (Man) 0.0 K/mm3 03/16/18 05:45 Monocytes # (Manual) 0.5 K/mm3 (0.0-0.8) 03/16/18 05:45 Eosinophils # (Manual) 0.0 K/mm3 (0.0-0.4) 03/16/18 05:45 Basophils # (Manual) 0.0 K/mm3 (0.0-0.1) 03/16/18 05:45 Metamyelocytes # 0.1 K/mm3 03/16/18 05:45 Myelocytes # 0.0 K/mm3 03/16/18 05:45 Promyelocytes # 0.0 K/mm3 03/16/18 05:45 Blast Cells # 0.0 K/mm3 03/16/18 05:45 WBC Morphology Not Reportable 03/16/18 05:45 Hypersegmented Neuts Not Reportable 03/16/18 05:45 Hyposegmented Neuts Not Reportable 03/16/18 05:45 Hypogranular Neuts Not Reportable 03/16/18 05:45 Smudge Cells Not Reportable 03/16/18 05:45 Toxic Granulation Not Reportable 03/16/18 05:45 Toxic Vacuolation Not Reportable 03/16/18 05:45 Dohle Bodies Not Reportable 03/16/18 05:45 Pelger-Huet Anomaly Not Reportable 03/16/18 05:45 Erwin Rods Not Reportable 03/16/18 05:45 Platelet Estimate Cons 03/16/18 05:45 Clumped Platelets Not Reportable 03/16/18 05:45 Plt Clumps, EDTA Not Reportable 03/16/18 05:45 Large Platelets Not Reportable 03/16/18 05:45 Giant Platelets Not Reportable 03/16/18 05:45 Platelet Satelliting Not Reportable 03/16/18 05:45 Plt Morphology Comment Not Reportable 03/16/18 05:45 RBC Morphology Not Reportable 03/16/18 05:45 Dimorphic RBCs Not Reportable 03/16/18 05:45 Polychromasia Not Reportable 03/16/18 05:45 Hypochromasia 1+ 03/16/18 05:45 Poikilocytosis Not Reportable 03/16/18 05:45 Anisocytosis 1+ 03/16/18 05:45 Microcytosis Not Reportable 03/16/18 05:45 Macrocytosis Not Reportable 03/16/18 05:45 Spherocytes Not Reportable 03/16/18 05:45 Pappenheimer Bodies Not Reportable 03/16/18 05:45 Sickle Cells Not Reportable 03/16/18 05:45 Target Cells Not Reportable 03/16/18 05:45 Tear Drop Cells Not Reportable 03/16/18 05:45 Ovalocytes Not Reportable 03/16/18 05:45 Stomatocytes Few 02/28/18 09:00 Helmet Cells Not Reportable 03/16/18 05:45 [place] Bodies Not Reportable 03/16/18 05:45 [place] Rings Not Reportable 03/16/18 05:45 [place] Cells Not Reportable 03/16/18 05:45 Bite Cells Not Reportable 03/16/18 05:45 Crenated Cell Not Reportable 03/16/18 05:45 Elliptocytes Not Reportable 03/16/18 05:45 Acanthocytes (Spur) Not Reportable 03/16/18 05:45 Rouleaux Not Reportable 03/16/18 05:45 Hemoglobin C Crystals Not Reportable 03/16/18 05:45 Schistocytes Not Reportable 03/16/18 05:45 Malaria parasites Not Reportable 03/16/18 05:45 Aric Bodies Not Reportable 03/16/18 05:45 Hem Pathologist Commnt No 03/16/18 05:45 PT 21.5 Sec. (12.2-14.9) H 02/26/18 20:50 INR 1.75 (0.87-1.13) H 02/26/18 20:50 POC ABG pH 7.483 (7.35-7.45) H 03/14/18 13:10 POC ABG pCO2 30.7 (35-45) L 03/14/18 13:10 POC ABG pO2 55 (80-105) L 03/14/18 13:10 POC ABG HCO3 23.0 03/14/18 13:10 POC ABG Total CO2 24 03/14/18 13:10 POC ABG O2 Sat 91 03/14/18 13:10 POC ABG Base Excess 0 03/14/18 13:10 VBG pH 7.406 (7.320-7.420) 02/25/18 23:15 FiO2 50 % 03/14/18 13:10 Sodium 133 mmol/L (137-145) L 03/17/18 04:40 Potassium 3.4 mmol/L (3.6-5.0) L 03/17/18 04:40 Chloride 90.3 mmol/L (98-107) L 03/17/18 04:40 Carbon Dioxide 24 mmol/L (22-30) 03/17/18 04:40 Anion Gap 22 mmol/L 03/17/18 04:40 BUN 45 mg/dL (9-20) H 03/17/18 04:40 Creatinine 3.6 mg/dL (0.8-1.5) H 03/17/18 04:40 Estimated GFR 20 ml/min 03/17/18 04:40 BUN/Creatinine Ratio 13 % 03/17/18 04:40 Glucose 92 mg/dL (75-100) 03/17/18 04:40 POC Glucose 97 (70-105) 03/17/18 11:56 Lactic Acid 2.60 mmol/L (0.7-2.0) H* 03/15/18 Unknown Calcium 8.2 mg/dL (8.4-10.2) L 03/17/18 04:40 Phosphorus 5.10 mg/dL (2.5-4.5) H 03/03/18 04:30 Magnesium 1.60 mg/dL (1.7-2.3) L 03/14/18 05:30 Total Bilirubin 0.80 mg/dL (0.1-1.2) 03/16/18 05:45 Direct Bilirubin 0.5 mg/dL (0-0.2) H 03/16/18 05:45 Indirect Bilirubin 0.3 mg/dL 03/16/18 05:45 AST 55 units/L (5-40) H 03/16/18 05:45 ALT 19 units/L (7-56) 03/16/18 05:45 Alkaline Phosphatase 112 units/L (35-129) 03/16/18 05:45 C-Reactive Protein 19.80 mg/dL (0.00-1.30) H 03/04/18 05:30 Total Protein 6.3 g/dL (6.3-8.2) 03/16/18 05:45 Albumin 2.8 g/dL (3.9-5) L 03/16/18 05:45 Albumin/Globulin Ratio 0.8 % 03/16/18 05:45 Lipase 35 units/L (13-60) 02/26/18 02:58 TSH 2.670 mlU/mL (0.270-4.200) 02/26/18 00:10 Free T4 1.26 ng/dL (0.76-1.46) 02/26/18 00:10 Urine Color Lesley (Yellow) 02/26/18 00:32 Urine Turbidity Hazy (Clear) 02/26/18 00:32 Urine pH 5.0 (5.0-7.0) 02/26/18 00:32 Ur Specific [place] 1.015 (1.003-1.030) 02/26/18 00:32 Urine Protein <15 mg/dl mg/dL (Negative) 02/26/18 00:32 Urine Glucose (UA) Neg mg/dL (Negative) 02/26/18 00:32 Urine Ketones Neg mg/dL (Negative) 02/26/18 00:32 Urine Blood Neg (Negative) 02/26/18 00:32 Urine Nitrite Neg (Negative) 02/26/18 00:32 Urine Bilirubin Neg (Negative) 02/26/18 00:32 Urine Urobilinogen 4.0 mg/dL (<2.0) 02/26/18 00:32 Ur Leukocyte Esterase Neg (Negative) 02/26/18 00:32 Urine WBC (Auto) 1.0 /HPF (0.0-6.0) 02/26/18 00:32 Urine RBC (Auto) 1.0 /HPF (0.0-6.0) 02/26/18 00:32 U Epithel Cells (Auto) 1.0 /HPF (0-13.0) 02/26/18 00:32 Amorphous Crystals 3+ 02/26/18 00:32 Hyaline Casts 4 /LPF 02/26/18 00:32 Urine Mucus Few /HPF 02/26/18 00:32 Urine Total Volume 490 03/09/18 17:38 Urine Creatinine 69.2 mg/dL (0.1-20.0) H 03/09/18 17:38 Ur Creatinine 24 Hour 0.3 (0.8-2.8) L 03/09/18 13:30 Height (in) 67.0 inches 03/09/18 17:38 Weight (lb) 159.0 lbs 03/09/18 17:38 Creatinine Clearance 7 03/09/18 17:38 Urine Sodium 67 mmol/L 02/26/18 13:08 Hep Bs Antigen Non-reactive (Negative) 03/11/18 14:25 Hepatitis C Antibody Non-reactive (NonReactive) 03/11/18 14:44 Blood Type A POSITIVE 03/10/18 09:00 Antibody Screen Negative 03/10/18 09:00 Crossmatch See Detail 03/10/18 09:00
[2018-03-17] MEDS ORDERED: NACL 0.9% 100 ML IV PRN (18:57)
[2018-03-17] MEDS: fentaNYL DRIP Premix 2,000 MCG/100 ML BAG IV SCH (21:36)
--- NOTE | 2018-03-17 21:46 | Procedure Note ---
Date of procedure: 03/17/18 Pre-op diagnosis: ventilator dependent respiratory failure Procedure: Bronchoscopic Report Written Consent was on the chart. Pre-op Dx Respiratory Failure Post-op Dx same Procedure Bronchoscopy for tracheostomy placement (CPT 09345) Surgeon Celia Pal MD Surgeon performing tracheostomy Mindy Gomez DO Anesth MAC EBL min Specimen none Findings normal anatomy. Moderate secretions. Complications none Disposition Stable in ICU Indications Procedure, risks, benefits, alternatives have been discussed. Consent was obtained. Procedure After time out was called, bronchoscopy was begun. Airway was evaluated. Secretions were aspirated. ETT was pulled back to about 20cm at the teeth. Later, had to be retracted to 17cm. Dr. Gomez performed the tracheostomy under bronchoscopic guidance. Introducer needle was seen safely entering the trachea. Trach was placed after serial dilation. Bronchoscope was then inserted through the trach to confirm position. There was several centimeters of space above the jose luis. There was no significant bleeding. The pulsation of the innominate artery was far distal compared to the distal tip of the tube. Patient had good inspiratory and expiratory tidal volumes. Pt was stable in ICU. CXR showed trach in good position and without complications. Findings: moderate secretions. Otherwise, normal anatomy Anesthesia: MAC Surgeon: NELY PAL Estimated blood loss: minimal Pathology: none Condition: stable Disposition: ICU
[2018-03-18] MEDS: HumuLIN R SUB-Q SCH ×5 (01:15→19:24)
[2018-03-18] MEDS: DUONEB *Not for PRN Use IH SCH ×3 (08:15→23:46)
[2018-03-18] MEDS: ROBINUL PO SCH ×3 (10:01→22:33)
[2018-03-18] MEDS: PEPCID PO SCH (10:01)
[2018-03-18] MEDS: HEPARIN SUB-Q SCH ×2 (10:01→22:33)
[2018-03-18] MEDS: BABY ASPIRIN PO SCH (10:02)
--- NOTE | 2018-03-18 10:02 | Progress Note ---
Assessment and Plan - Patient Problems (1) Acute hypoxemic respiratory failure Current Visit: Yes Status: Acute Plan to address problem: Patient appears stable. There have been no issues with the tracheostomy. Numbers on ventilator appear appropriate. Diminished breath sounds on the left are probably due to primary lung problem as opposed to misplacement of trach. The chest x-ray clearly shows good position of the tracheostomy. Signoff. Please call if there any questions. Subjective Date of service: 03/18/18 Patient Reports: Positive: other (staff reports no issues with trach ) Objective Vital Signs - 12hr 03/17/18 03/17/18 03/17/18 22:15 22:30 22:45 Temperature Pulse Rate 108 H 105 H 110 H Pulse Rate [ Anterior Bilateral Throughout] Respiratory 27 H 22 25 H Rate Respiratory Rate [Anterior Bilateral Throughout] Blood Pressure 113/83 118/74 118/74 O2 Sat by Pulse 94 92 90 Oximetry O2 Sat by Pulse Oximetry [ Assessment] 03/17/18 03/17/18 03/17/18 23:00 23:15 23:30 Temperature Pulse Rate 109 H 104 H 101 H Pulse Rate [ Anterior Bilateral Throughout] Respiratory 17 26 H 29 H Rate Respiratory Rate [Anterior Bilateral Throughout] Blood Pressure 126/75 106/58 108/61 O2 Sat by Pulse 91 91 91 Oximetry O2 Sat by Pulse Oximetry [ Assessment] 03/17/18 03/17/18 03/17/18 23:40 23:45 23:53 Temperature Pulse Rate 99 H 100 H Pulse Rate [ 99 H Anterior Bilateral Throughout] Respiratory 22 Rate Respiratory 23 Rate [Anterior Bilateral Throughout] Blood Pressure 108/61 113/62 O2 Sat by Pulse 97 94 Oximetry O2 Sat by Pulse Oximetry [ Assessment] 03/18/18 03/18/18 03/18/18 00:00 00:06 00:15 Temperature 98.7 F Pulse Rate 104 H 98 H Pulse Rate [ Anterior Bilateral Throughout] Respiratory 26 H 21 Rate Respiratory Rate [Anterior Bilateral Throughout] Blood Pressure 128/78 123/71 O2 Sat by Pulse 100 95 Oximetry O2 Sat by Pulse 98 Oximetry [ Assessment] 03/18/18 03/18/18 03/18/18 00:30 00:45 01:00 Temperature Pulse Rate 100 H 102 H 106 H Pulse Rate [ Anterior Bilateral Throughout] Respiratory 20 20 21 Rate Respiratory Rate [Anterior Bilateral Throughout] Blood Pressure 118/72 117/75 126/69 O2 Sat by Pulse 95 95 96 Oximetry O2 Sat by Pulse Oximetry [ Assessment] 03/18/18 03/18/18 03/18/18 01:15 01:30 01:45 Temperature Pulse Rate 109 H 106 H 105 H Pulse Rate [ Anterior Bilateral Throughout] Respiratory 26 H 22 22 Rate Respiratory Rate [Anterior Bilateral Throughout] Blood Pressure 131/83 107/72 113/80 O2 Sat by Pulse 94 95 95 Oximetry O2 Sat by Pulse Oximetry [ Assessment] 03/18/18 03/18/18 03/18/18 02:00 02:15 02:30 Temperature Pulse Rate 106 H 102 H 103 H Pulse Rate [ Anterior Bilateral Throughout] Respiratory 22 20 20 Rate Respiratory Rate [Anterior Bilateral Throughout] Blood Pressure 116/74 111/73 105/73 O2 Sat by Pulse 96 96 96 Oximetry O2 Sat by Pulse Oximetry [ Assessment] 03/18/18 03/18/18 03/18/18 02:45 03:00 03:15 Temperature Pulse Rate 105 H 104 H 106 H Pulse Rate [ Anterior Bilateral Throughout] Respiratory 20 19 20 Rate Respiratory Rate [Anterior Bilateral Throughout] Blood Pressure 114/72 110/72 111/75 O2 Sat by Pulse 96 95 96 Oximetry O2 Sat by Pulse Oximetry [ Assessment] 03/18/18 03/18/18 03/18/18 03:30 03:34 03:45 Temperature Pulse Rate 108 H 108 H 107 H Pulse Rate [ Anterior Bilateral Throughout] Respiratory 20 20 Rate Respiratory Rate [Anterior Bilateral Throughout] Blood Pressure 109/78 109/78 112/76 O2 Sat by Pulse 95 97 96 Oximetry O2 Sat by Pulse Oximetry [ Assessment] 03/18/18 03/18/18 03/18/18 04:00 04:15 04:30 Temperature 98.2 F Pulse Rate 109 H 107 H 108 H Pulse Rate [ Anterior Bilateral Throughout] Respiratory 22 20 19 Rate Respiratory Rate [Anterior Bilateral Throughout] Blood Pressure 120/79 120/72 116/78 O2 Sat by Pulse 96 96 95 Oximetry O2 Sat by Pulse Oximetry [ Assessment] 03/18/18 03/18/18 03/18/18 04:45 05:00 05:15 Temperature Pulse Rate 108 H 109 H 116 H Pulse Rate [ Anterior Bilateral Throughout] Respiratory 20 21 24 Rate Respiratory Rate [Anterior Bilateral Throughout] Blood Pressure 112/81 119/79 112/81 O2 Sat by Pulse 95 96 97 Oximetry O2 Sat by Pulse Oximetry [ Assessment] 03/18/18 03/18/18 03/18/18 05:30 05:45 06:00 Temperature Pulse Rate 117 H 115 H 118 H Pulse Rate [ Anterior Bilateral Throughout] Respiratory 26 H 20 22 Rate Respiratory Rate [Anterior Bilateral Throughout] Blood Pressure 133/90 133/90 114/77 O2 Sat by Pulse 94 94 96 Oximetry O2 Sat by Pulse Oximetry [ Assessment] 03/18/18 03/18/18 03/18/18 06:15 08:00 08:20 Temperature 99.5 F Pulse Rate 108 H Pulse Rate [ 119 H Anterior Bilateral Throughout] Respiratory 19 Rate Respiratory 25 H Rate [Anterior Bilateral Throughout] Blood Pressure 108/71 O2 Sat by Pulse 97 Oximetry O2 Sat by Pulse Oximetry [ Assessment] 03/18/18 03/18/18 03/18/18 08:25 08:37 08:38 Temperature Pulse Rate 115 H Pulse Rate [ 120 H Anterior Bilateral Throughout] Respiratory Rate Respiratory 23 Rate [Anterior Bilateral Throughout] Blood Pressure 139/87 O2 Sat by Pulse 95 Oximetry O2 Sat by Pulse 95 Oximetry [ Assessment] - General physical appearance no distress, no pain - Neck other (trach in place. No drainage. No swelling.) - Respiratory normal expansion, other (breath sounds bilaterally. diminished on left. ) - Integumentary no rash, no growths, no abnormal pigmentation - Labs 03/17/18 04:40 03/17/18 04:40 - Imaging Chest x-ray: report reviewed, image reviewed
[2018-03-18] MEDS: SODIUM CHLORIDE FLUSH SYRINGE 10 ML IV SCH (10:03)
--- NOTE | 2018-03-18 10:44 | Progress Note ---
Assessment and Plan To continue vasopressors and IV amiodarone.No full anticoagulation.Prognosis is guarded.Discussed with the patient's son at bedside. - Patient Problems (1) Atrial flutter with rapid ventricular response Current Visit: Yes Status: Acute (2) Acute kidney injury superimposed on CKD Current Visit: Yes Status: Acute (3) Anemia Current Visit: Yes Status: Chronic Qualifiers: Anemia type: unspecified type Qualified Code(s): D64.9 - Anemia, unspecified (4) Atrial fibrillation with RVR Current Visit: Yes Status: Resolved (5) Dehydration, severe Current Visit: Yes Status: Acute (6) Pneumonia Current Visit: Yes Status: Acute Qualifiers: Pneumonia type: due to unspecified organism Laterality: left Lung location: lower lobe of lung Qualified Code(s): J18.1 - Lobar pneumonia, unspecified organism (7) Sacral decubitus ulcer, stage III Current Visit: Yes Status: Acute (8) Septic shock Current Visit: Yes Status: Acute (9) BPH (benign prostatic hyperplasia) Current Visit: Yes Status: Chronic Qualifiers: Lower urinary tract symptom presence: symptoms present (10) Hyperlipidemia Current Visit: Yes Status: Chronic Qualifiers: Hyperlipidemia type: mixed hyperlipidemia Qualified Code(s): E78.2 - Mixed hyperlipidemia (11) Acute CVA (cerebrovascular accident) Current Visit: No Status: Acute (12) Acute encephalopathy Current Visit: No Status: Acute (13) Altered mental status Current Visit: No Status: Acute (14) Carotid stenosis Current Visit: No Status: Acute (15) Hyponatremia Current Visit: No Status: Acute (16) Neurogenic dysphagia Current Visit: No Status: Acute (17) Status post tracheostomy Current Visit: Yes Status: Acute Subjective Date of service: 03/18/18 Principal diagnosis: Acute Hypoxemic Resp Failure; Severe Sepsis; Aspiration Pneumonai (HCAP) Interval history: S/P Tracheostomy. He tolerated the procedure well. Rhythm: Atrial flutter with 2 :1 av conduction.Still on vasopressors and IV amiodarone.Son at bedside. Objective Vital Signs Temp Temp Pulse Pulse Pulse Pulse Pulse 03/18/18 08:38 03/18/18 08:37 120 H 03/18/18 08:25 115 H 03/18/18 08:20 119 H 03/18/18 08:00 99.5 F 03/18/18 06:15 108 H 03/18/18 06:00 118 H 03/18/18 05:45 115 H 03/18/18 05:30 117 H 03/18/18 05:15 116 H 03/18/18 05:00 109 H 03/18/18 04:45 108 H 03/18/18 04:30 108 H 03/18/18 04:15 107 H 03/18/18 04:00 98.2 F 109 H 03/18/18 03:45 107 H 03/18/18 03:34 108 H 03/18/18 03:30 108 H 03/18/18 03:15 106 H 03/18/18 03:00 104 H 03/18/18 02:45 105 H 03/18/18 02:30 103 H 03/18/18 02:15 102 H 03/18/18 02:00 106 H 03/18/18 01:45 105 H 03/18/18 01:30 106 H 03/18/18 01:15 109 H 03/18/18 01:00 106 H 03/18/18 00:45 102 H 03/18/18 00:30 100 H 03/18/18 00:15 98 H 03/18/18 00:06 03/18/18 00:00 98.7 F 104 H 03/17/18 23:53 99 H 03/17/18 23:45 100 H 03/17/18 23:40 99 H 03/17/18 23:30 101 H 03/17/18 23:15 104 H 03/17/18 23:00 109 H 03/17/18 22:45 110 H 03/17/18 22:30 105 H 03/17/18 22:15 108 H 03/17/18 22:00 108 H 03/17/18 21:45 106 H 03/17/18 21:30 104 H 03/17/18 21:15 105 H 03/17/18 21:00 99 H 03/17/18 20:57 98 H 03/17/18 20:45 99 H 03/17/18 20:30 99 H 03/17/18 20:15 99 H 03/17/18 20:00 98.5 F 94 H 03/17/18 19:45 97 H 03/17/18 19:30 97 H 03/17/18 19:15 95 H 03/17/18 19:04 92 H 03/17/18 19:00 92 H 03/17/18 18:45 92 H 03/17/18 18:30 91 H 03/17/18 18:15 91 H 03/17/18 18:00 93 H 03/17/18 17:45 92 H 03/17/18 17:30 96 H 03/17/18 17:15 98 H 03/17/18 17:00 97.7 F 101 H 88 94 H 03/17/18 16:45 97 H 03/17/18 16:40 89 03/17/18 16:36 88 03/17/18 16:31 88 03/17/18 16:30 88 03/17/18 16:25 97.5 F L 88 03/17/18 16:15 86 03/17/18 16:01 94 H 03/17/18 16:00 97.7 F 03/17/18 15:45 93 H 103 H 03/17/18 15:40 97.5 F L 93 H 03/17/18 15:31 96 H 03/17/18 15:15 93 H 03/17/18 15:01 99 H 03/17/18 14:45 91 H 03/17/18 14:30 93 H 03/17/18 14:18 94 H 03/17/18 14:15 104 H 03/17/18 14:00 95 H 03/17/18 13:45 95 H 03/17/18 13:30 96 H 03/17/18 13:15 96 H 03/17/18 13:00 96 H 03/17/18 12:45 100 H 03/17/18 12:30 98 H 03/17/18 12:15 99 H 103 H 03/17/18 12:00 98 F 98 H 03/17/18 11:45 100 H 03/17/18 11:30 100 H 03/17/18 11:19 102 H 03/17/18 11:15 104 H 03/17/18 11:00 96 H 03/17/18 10:45 98 H Resp Resp Resp Resp BP BP BP 03/18/18 08:38 03/18/18 08:37 23 03/18/18 08:25 139/87 03/18/18 08:20 25 H 03/18/18 08:00 03/18/18 06:15 19 108/71 03/18/18 06:00 22 114/77 03/18/18 05:45 20 133/90 03/18/18 05:30 26 H 133/90 03/18/18 05:15 24 112/81 03/18/18 05:00 21 119/79 03/18/18 04:45 20 112/81 03/18/18 04:30 19 116/78 03/18/18 04:15 20 120/72 03/18/18 04:00 22 120/79 03/18/18 03:45 20 112/76 03/18/18 03:34 109/78 03/18/18 03:30 20 109/78 03/18/18 03:15 20 111/75 03/18/18 03:00 19 110/72 03/18/18 02:45 20 114/72 03/18/18 02:30 20 105/73 03/18/18 02:15 20 111/73 03/18/18 02:00 22 116/74 03/18/18 01:45 22 113/80 03/18/18 01:30 22 107/72 03/18/18 01:15 26 H 131/83 03/18/18 01:00 21 126/69 03/18/18 00:45 20 117/75 03/18/18 00:30 20 118/72 03/18/18 00:15 21 123/71 03/18/18 00:06 03/18/18 00:00 26 H 128/78 03/17/18 23:53 23 03/17/18 23:45 22 113/62 03/17/18 23:40 108/61 03/17/18 23:30 29 H 108/61 03/17/18 23:15 26 H 106/58 03/17/18 23:00 17 126/75 03/17/18 22:45 25 H 118/74 03/17/18 22:30 22 118/74 03/17/18 22:15 27 H 113/83 03/17/18 22:00 31 H 113/58 03/17/18 21:45 30 H 108/68 03/17/18 21:30 31 H 109/71 03/17/18 21:15 31 H 123/79 07/06/18 21:00 21 127/70 18 20:57 30 H 118/62 18 20:45 30 H 118/62 18 20:30 22 120/61 18 20:15 29 H 120/60 18 20:00 26 H 115/55 18 19:45 31 H 124/75 18 19:30 22 134/73 03/17/18 19:15 25 H 126/74 18 19:04 111/63 18 19:00 27 H 111/63 18 18:45 28 H 105/67 03/17/18 18:30 24 104/61 03/17/18 18:15 22 105/58 18 18:00 24 109/62 18 17:45 20 103/62 18 17:30 16 118/67 18 17:15 19 127/67 18 17:00 15 16 33 H 116/77 94/61 107/65 18 16:45 11 L 104/71 18 16:40 16 86/59 18 16:36 16 03/17/18 16:31 103/71 18 16:30 16 94/61 18 16:25 16 113/76 03/17/18 16:15 18 106/61 03/17/18 16:01 20 107/65 03/17/18 16:00 03/17/18 15:45 17 114/69 18 15:40 19 103/63 18 15:31 25 H 184/101 03/17/18 15:15 18 97/64 03/17/18 15:01 16 97/64 18 14:45 19 84/57 18 14:30 21 93/52 18 14:18 100/59 18 14:15 15 100/59 18 14:00 20 100/59 18 13:45 19 90/52 18 13:30 20 90/56 18 13:15 20 97/55 03/17/18 13:00 19 99/58 03/17/18 12:45 20 112/69 03/17/18 12:30 20 99/58 03/17/18 12:15 20 105/63 03/17/18 12:00 20 105/62 03/17/18 11:45 19 111/66 03/17/18 11:30 22 113/66 03/17/18 11:19 110/72 03/17/18 11:15 24 110/72 03/17/18 11:00 20 95/52 03/17/18 10:45 21 104/47 Pulse Ox Pulse Ox Pulse Ox Pulse Ox 03/18/18 08:38 95 03/18/18 08:37 03/18/18 08:25 95 03/18/18 08:20 03/18/18 08:00 03/18/18 06:15 97 03/18/18 06:00 96 03/18/18 05:45 94 03/18/18 05:30 94 03/18/18 05:15 97 03/18/18 05:00 96 03/18/18 04:45 95 03/18/18 04:30 95 03/18/18 04:15 96 03/18/18 04:00 96 03/18/18 03:45 96 03/18/18 03:34 97 03/18/18 03:30 95 03/18/18 03:15 96 03/18/18 03:00 95 03/18/18 02:45 96 03/18/18 02:30 96 03/18/18 02:15 96 03/18/18 02:00 96 03/18/18 01:45 95 03/18/18 01:30 95 03/18/18 01:15 94 03/18/18 01:00 96 03/18/18 00:45 95 03/18/18 00:30 95 03/18/18 00:15 95 03/18/18 00:06 98 03/18/18 00:00 100 03/17/18 23:53 03/17/18 23:45 94 03/17/18 23:40 97 03/17/18 23:30 91 03/17/18 23:15 91 03/17/18 23:00 91 03/17/18 22:45 90 03/17/18 22:30 92 03/17/18 22:15 94 03/17/18 22:00 87 03/17/18 21:45 93 03/17/18 21:30 89 03/17/18 21:15 91 03/17/18 21:00 90 03/17/18 20:57 94 03/17/18 20:45 92 03/17/18 20:30 92 03/17/18 20:15 94 03/17/18 20:00 92 03/17/18 19:45 93 03/17/18 19:30 90 03/17/18 19:15 93 03/17/18 19:04 92 03/17/18 19:00 89 03/17/18 18:45 86 03/17/18 18:30 89 03/17/18 18:15 89 03/17/18 18:00 86 03/17/18 17:45 90 03/17/18 17:30 88 03/17/18 17:15 86 03/17/18 17:00 90 98 100 03/17/18 16:45 92 03/17/18 16:40 100 03/17/18 16:36 03/17/18 16:31 100 03/17/18 16:30 95 03/17/18 16:25 100 03/17/18 16:15 100 03/17/18 16:01 100 03/17/18 16:00 03/17/18 15:45 100 03/17/18 15:40 100 03/17/18 15:31 100 03/17/18 15:15 100 03/17/18 15:01 100 03/17/18 14:45 100 03/17/18 14:30 99 03/17/18 14:18 100 03/17/18 14:15 98 03/17/18 14:00 99 03/17/18 13:45 99 03/17/18 13:30 98 03/17/18 13:15 98 03/17/18 13:00 99 03/17/18 12:45 96 03/17/18 12:30 98 03/17/18 12:15 96 03/17/18 12:00 97 03/17/18 11:45 97 03/17/18 11:30 98 03/17/18 11:19 96 03/17/18 11:15 96 03/17/18 11:00 98 03/17/18 10:45 98 - Physical Examination General: Other (intubated, nonverbal, S/P Tracheostomy.) HEENT: Positive: EOMI, Normocephaly, Mucus Membranes Moist Neck: Positive: neck supple, trachea midline, Other (S/P Tracheostomy.) Cardiac: Positive: Regular Rhythm, Tachycardia Lungs: Positive: clear to auscultation, Normal Breath Sounds Neuro: Positive: Other (nonverbal, left hemiplegia) Abdomen: Positive: Soft, Active Bowel Sounds. Negative: Tender Skin: Positive: Clear. Negative: Rash Musculoskeletal: Decreased Range of Motion Extremities: Present: +3 Edema (BLE) - Imaging and Cardiology EKG: report reviewed, image reviewed - Telemetry EKG Rhythm: Atrial Flutter - EKG Sinus rhythms and dysrhythmias: sinus tachycardia - Allied health notes Allied health notes reviewed: RT
[2018-03-18] MEDS ORDERED: NACL 0.9% 100 ML IV PRN ×2 (11:03→11:10)
[2018-03-18] MEDS ORDERED: ALBURX 25% (ALBUMIN) IV PRN (11:10)
--- NOTE | 2018-03-18 11:35 | Progress Note ---
Assessment and Plan impression * Acute renal failure. Most likely secondary to ATN * Status post cardiac arrest * Respiratory failure * Encephalopathy * Sepsis * CVA * hypokalemia Recommendations * No evidence of renal recovery at this time * Continue maintenance dialysis as needed. * patient is significantly volume overloaded . * Shall remove fluid as tolerated . IV albumin for BP support * Use higher K abth for dialysis . * Monitor H/H and transfuse as needed * Avoid nephrotoxins * Adjust diet and meds for GFR less than 10 * Monitor fluid status and electrolytes closely * His overall prognosis appears to be extremely poor Subjective Date of service: 03/18/18 Principal diagnosis: Acute Hypoxemic Resp Failure; Severe Sepsis; Aspiration Pneumonai (HCAP) Interval history: patient remains on the ventilator. On 50% FiO2. Sedated. Currently off pressors. s/p tracheostomy tube placement Objective - Vital Signs Vital signs: Vital Signs - 12hr 03/17/18 03/17/18 03/17/18 23:40 23:45 23:53 Temperature Pulse Rate 99 H 100 H Pulse Rate [ 99 H Anterior Bilateral Throughout] Respiratory 22 Rate Respiratory 23 Rate [Anterior Bilateral Throughout] Blood Pressure 108/61 113/62 O2 Sat by Pulse 97 94 Oximetry O2 Sat by Pulse Oximetry [ Assessment] 03/18/18 03/18/18 03/18/18 00:00 00:06 00:15 Temperature 98.7 F Pulse Rate 104 H 98 H Pulse Rate [ Anterior Bilateral Throughout] Respiratory 26 H 21 Rate Respiratory Rate [Anterior Bilateral Throughout] Blood Pressure 128/78 123/71 O2 Sat by Pulse 100 95 Oximetry O2 Sat by Pulse 98 Oximetry [ Assessment] 03/18/18 03/18/18 03/18/18 00:30 00:45 01:00 Temperature Pulse Rate 100 H 102 H 106 H Pulse Rate [ Anterior Bilateral Throughout] Respiratory 20 20 21 Rate Respiratory Rate [Anterior Bilateral Throughout] Blood Pressure 118/72 117/75 126/69 O2 Sat by Pulse 95 95 96 Oximetry O2 Sat by Pulse Oximetry [ Assessment] 03/18/18 03/18/18 03/18/18 01:15 01:30 01:45 Temperature Pulse Rate 109 H 106 H 105 H Pulse Rate [ Anterior Bilateral Throughout] Respiratory 26 H 22 22 Rate Respiratory Rate [Anterior Bilateral Throughout] Blood Pressure 131/83 107/72 113/80 O2 Sat by Pulse 94 95 95 Oximetry O2 Sat by Pulse Oximetry [ Assessment] 03/18/18 03/18/18 03/18/18 02:00 02:15 02:30 Temperature Pulse Rate 106 H 102 H 103 H Pulse Rate [ Anterior Bilateral Throughout] Respiratory 22 20 20 Rate Respiratory Rate [Anterior Bilateral Throughout] Blood Pressure 116/74 111/73 105/73 O2 Sat by Pulse 96 96 96 Oximetry O2 Sat by Pulse Oximetry [ Assessment] 03/18/18 03/18/18 03/18/18 02:45 03:00 03:15 Temperature Pulse Rate 105 H 104 H 106 H Pulse Rate [ Anterior Bilateral Throughout] Respiratory 20 19 20 Rate Respiratory Rate [Anterior Bilateral Throughout] Blood Pressure 114/72 110/72 111/75 O2 Sat by Pulse 96 95 96 Oximetry O2 Sat by Pulse Oximetry [ Assessment] 03/18/18 03/18/18 03/18/18 03:30 03:34 03:45 Temperature Pulse Rate 108 H 108 H 107 H Pulse Rate [ Anterior Bilateral Throughout] Respiratory 20 20 Rate Respiratory Rate [Anterior Bilateral Throughout] Blood Pressure 109/78 109/78 112/76 O2 Sat by Pulse 95 97 96 Oximetry O2 Sat by Pulse Oximetry [ Assessment] 03/18/18 03/18/18 03/18/18 04:00 04:15 04:30 Temperature 98.2 F Pulse Rate 109 H 107 H 108 H Pulse Rate [ Anterior Bilateral Throughout] Respiratory 22 20 19 Rate Respiratory Rate [Anterior Bilateral Throughout] Blood Pressure 120/79 120/72 116/78 O2 Sat by Pulse 96 96 95 Oximetry O2 Sat by Pulse Oximetry [ Assessment] 03/18/18 03/18/18 03/18/18 04:45 05:00 05:15 Temperature Pulse Rate 108 H 109 H 116 H Pulse Rate [ Anterior Bilateral Throughout] Respiratory 20 21 24 Rate Respiratory Rate [Anterior Bilateral Throughout] Blood Pressure 112/81 119/79 112/81 O2 Sat by Pulse 95 96 97 Oximetry O2 Sat by Pulse Oximetry [ Assessment] 03/18/18 03/18/18 03/18/18 05:30 05:45 06:00 Temperature Pulse Rate 117 H 115 H 118 H Pulse Rate [ Anterior Bilateral Throughout] Respiratory 26 H 20 22 Rate Respiratory Rate [Anterior Bilateral Throughout] Blood Pressure 133/90 133/90 114/77 O2 Sat by Pulse 94 94 96 Oximetry O2 Sat by Pulse Oximetry [ Assessment] 03/18/18 03/18/18 03/18/18 06:15 08:00 08:20 Temperature 99.5 F Pulse Rate 108 H Pulse Rate [ 119 H Anterior Bilateral Throughout] Respiratory 19 Rate Respiratory 25 H Rate [Anterior Bilateral Throughout] Blood Pressure 108/71 O2 Sat by Pulse 97 Oximetry O2 Sat by Pulse Oximetry [ Assessment] 03/18/18 03/18/18 03/18/18 08:25 08:37 08:38 Temperature Pulse Rate 115 H Pulse Rate [ 120 H Anterior Bilateral Throughout] Respiratory Rate Respiratory 23 Rate [Anterior Bilateral Throughout] Blood Pressure 139/87 O2 Sat by Pulse 95 Oximetry O2 Sat by Pulse 95 Oximetry [ Assessment] - General Appearance General appearance: well-developed, well-nourished, appears stated age, intubated EENT: PERRL, mucous membranes moist Neck: no JVD, no thyromegaly, no carotid bruit, supple Respiratory: Present: Clear to Ascultation, Ronchi Cardiology: regular, normal heart rate, S1S2, no murmurs Gastrointestinal: normal, normoactive bowel sounds, other (PEG tube in place ) Integumentary: no rash, other (2+ edema ) - Lab 03/17/18 04:40 03/17/18 04:40 Most recent lab results Calcium 8.2 mg/dL (8.4-10.2) L 03/17/18 04:40 Phosphorus 5.10 mg/dL (2.5-4.5) H 03/03/18 04:30 Magnesium 1.60 mg/dL (1.7-2.3) L 03/14/18 05:30 Urine Creatinine 69.2 mg/dL (0.1-20.0) H 03/09/18 17:38 Urine Sodium 67 mmol/L 02/26/18 13:08
--- NOTE | 2018-03-18 12:11 | Progress Note ---
Assessment and Plan Assessment and plan: 72-year-old male with history of cerebrovascular accident and hemiplegia, Alzheimer's and nonverbal from [facility] was admitted with altered mental state.Patient was febrile 103.2F as well as and respiratory failure 03/03: Went into cardiopulmonary arrest. s/p CPR per ACLS protocol , encephalopathy 03/05: Pt had recurrent seizure over the night and CT head showed right MCA acute /subacute stroke and calcified meningioma in the left frontal area 03/12: commence on renal replacemtn therapy 03/11 --Acute hypoxic respiratory failure; status post tracheostomy Continue ventilatory support, nebulizers, pulmonary following Possible LTAC placement --Severe sepsis with septic shock;Resolved, --Acute kidney injury; secondary to ATN On hemodialysis, nephrology following, HD per schedule --Metabolic encephalopathy; multifactorial supportive care --Status post cardiac arrest/anoxic encephalopathy Continue supportive care, poor prognosis --Acute/ Subacute right MCA distribution stroke Supportive care --Meningioma left frontal area 2.8 x 2.2cm Prophylactic seizure medications with Keppra --Sacral Pressure ulcer Continue wound care --History of BPH Continue Finasteride --Hyperlipidemia; statin --Anemia of chronic disease; Closely monitor transfuse as needed --DVT prophylaxis; heparin renal dose Poor prognosis Discharge planning; possible LTAC placement after tracheostomy In 1-2 days The high probability of a clinically significant, sudden or life threatening deterioration of the [neurological , renal ,metabolic and PULMONARY] system(s) required my full and direct attention, intervention and personal management. The aggregate critical care time was [31] minutes. This time is in addition to time spent performing reported procedures but includes the following: [X] Data Review and interpretation [X] Patient assessment and monitoring of vital signs [X] Documentation [X] Medication orders and management History Interval history: Since seen and examined medical records reviewed Underwent tracheostomy yesterday, Patient is comfortable Vital signs noted Hospitalist Physical - Constitutional Vitals: Temp Pulse Resp BP Pulse Ox 99.5 F 120 H 23 139/87 95 03/18/18 08:00 03/18/18 08:37 03/18/18 08:37 03/18/18 08:25 03/18/18 08:38 General appearance: Present: no acute distress, well-nourished, other ( intubated on vent and sedated) - EENT Eyes: Present: PERRL, EOM intact - Neck Neck: Present: supple, normal ROM - Respiratory Respiratory effort: normal Respiratory: bilateral: diminished, rhonchi, negative: rales, wheezing - Cardiovascular Rhythm: regular Heart Sounds: Present: S1 & S2 - Extremities Extremities: abnormal (contracted) Extremity abnormal: edema - Abdominal General gastrointestinal: soft, non-tender, non-distended, normal bowel sounds, other (PEG tube in place) - Integumentary Integumentary: Present: clear, warm - Psychiatric Psychiatric: other (unresponsive) - Neurologic Neurologic: other (unresponsive) Results - Labs CBC & Chem 7: 03/17/18 04:40 03/17/18 04:40 Labs: Laboratory Last Values WBC 8.4 K/mm3 (4.5-11.0) 03/17/18 04:40 RBC 2.42 M/mm3 (3.65-5.03) L 03/17/18 04:40 Hgb 7.4 gm/dl (11.8-15.2) L 03/17/18 04:40 Hct 22.3 % (35.5-45.6) L 03/17/18 04:40 MCV 92 fl (84-94) 03/17/18 04:40 MCH 30 pg (28-32) 03/17/18 04:40 MCHC 33 % (32-34) 03/17/18 04:40 RDW 16.1 % (13.2-15.2) H 03/17/18 04:40 Plt Count 207 K/mm3 (140-440) 03/17/18 04:40 Lymph % (Auto) 8.7 % (13.4-35.0) L 03/15/18 06:45 [place] % (Auto) 8.7 % (0.0-7.3) H 03/15/18 06:45 Eos % (Auto) 0.8 % (0.0-4.3) 03/15/18 06:45 Baso % (Auto) 0.3 % (0.0-1.8) 03/15/18 06:45 Lymph # 0.8 K/mm3 (1.2-5.4) L 03/15/18 06:45 [place] # 0.8 K/mm3 (0.0-0.8) 03/15/18 06:45 Eos # 0.1 K/mm3 (0.0-0.4) 03/15/18 06:45 Baso # 0.0 K/mm3 (0.0-0.1) 03/15/18 06:45 Add Manual Diff Complete 03/16/18 05:45 Total Counted 100 03/16/18 05:45 Seg Neutrophils % 81.5 % (40.0-70.0) H 03/15/18 06:45 Seg Neuts % (Manual) 89.0 % (40.0-70.0) H 03/16/18 05:45 Band Neutrophils % 1.0 % 03/16/18 05:45 Lymphocytes % (Manual) 4.0 % (13.4-35.0) L 03/16/18 05:45 Reactive Lymphs % (Man) 0 % 03/16/18 05:45 Monocytes % (Manual) 5.0 % (0.0-7.3) 03/16/18 05:45 Eosinophils % (Manual) 0 % (0.0-4.3) 03/16/18 05:45 Basophils % (Manual) 0 % (0.0-1.8) 03/16/18 05:45 Metamyelocytes % 1.0 % 03/16/18 05:45 Myelocytes % 0 % 03/16/18 05:45 Promyelocytes % 0 % 03/16/18 05:45 Blast Cells % 0 % 03/16/18 05:45 Nucleated RBC % Not Reportable 03/16/18 05:45 Seg Neutrophils # 7.6 K/mm3 (1.8-7.7) 03/15/18 06:45 Seg Neutrophils # Man 9.2 K/mm3 (1.8-7.7) H 03/16/18 05:45 Band Neutrophils # 0.1 K/mm3 03/16/18 05:45 Lymphocytes # (Manual) 0.4 K/mm3 (1.2-5.4) L 03/16/18 05:45 Abs React Lymphs (Man) 0.0 K/mm3 03/16/18 05:45 Monocytes # (Manual) 0.5 K/mm3 (0.0-0.8) 03/16/18 05:45 Eosinophils # (Manual) 0.0 K/mm3 (0.0-0.4) 03/16/18 05:45 Basophils # (Manual) 0.0 K/mm3 (0.0-0.1) 03/16/18 05:45 Metamyelocytes # 0.1 K/mm3 03/16/18 05:45 Myelocytes # 0.0 K/mm3 03/16/18 05:45 Promyelocytes # 0.0 K/mm3 03/16/18 05:45 Blast Cells # 0.0 K/mm3 03/16/18 05:45 WBC Morphology Not Reportable 03/16/18 05:45 Hypersegmented Neuts Not Reportable 03/16/18 05:45 Hyposegmented Neuts Not Reportable 03/16/18 05:45 Hypogranular Neuts Not Reportable 03/16/18 05:45 Smudge Cells Not Reportable 03/16/18 05:45 Toxic Granulation Not Reportable 03/16/18 05:45 Toxic Vacuolation Not Reportable 03/16/18 05:45 Dohle Bodies Not Reportable 03/16/18 05:45 Pelger-Huet Anomaly Not Reportable 03/16/18 05:45 Erwin Rods Not Reportable 03/16/18 05:45 Platelet Estimate Cons 03/16/18 05:45 Clumped Platelets Not Reportable 03/16/18 05:45 Plt Clumps, EDTA Not Reportable 03/16/18 05:45 Large Platelets Not Reportable 03/16/18 05:45 Giant Platelets Not Reportable 03/16/18 05:45 Platelet Satelliting Not Reportable 03/16/18 05:45 Plt Morphology Comment Not Reportable 03/16/18 05:45 RBC Morphology Not Reportable 03/16/18 05:45 Dimorphic RBCs Not Reportable 03/16/18 05:45 Polychromasia Not Reportable 03/16/18 05:45 Hypochromasia 1+ 03/16/18 05:45 Poikilocytosis Not Reportable 03/16/18 05:45 Anisocytosis 1+ 03/16/18 05:45 Microcytosis Not Reportable 03/16/18 05:45 Macrocytosis Not Reportable 03/16/18 05:45 Spherocytes Not Reportable 03/16/18 05:45 Pappenheimer Bodies Not Reportable 03/16/18 05:45 Sickle Cells Not Reportable 03/16/18 05:45 Target Cells Not Reportable 03/16/18 05:45 Tear Drop Cells Not Reportable 03/16/18 05:45 Ovalocytes Not Reportable 03/16/18 05:45 Stomatocytes Few 02/28/18 09:00 Helmet Cells Not Reportable 03/16/18 05:45 [place] Bodies Not Reportable 03/16/18 05:45 [place] Rings Not Reportable 03/16/18 05:45 [place] Cells Not Reportable 03/16/18 05:45 Bite Cells Not Reportable 03/16/18 05:45 Crenated Cell Not Reportable 03/16/18 05:45 Elliptocytes Not Reportable 03/16/18 05:45 Acanthocytes (Spur) Not Reportable 03/16/18 05:45 Rouleaux Not Reportable 03/16/18 05:45 Hemoglobin C Crystals Not Reportable 03/16/18 05:45 Schistocytes Not Reportable 03/16/18 05:45 Malaria parasites Not Reportable 03/16/18 05:45 Aric Bodies Not Reportable 03/16/18 05:45 Hem Pathologist Commnt No 03/16/18 05:45 PT 21.5 Sec. (12.2-14.9) H 02/26/18 20:50 INR 1.75 (0.87-1.13) H 02/26/18 20:50 POC ABG pH 7.483 (7.35-7.45) H 03/14/18 13:10 POC ABG pCO2 30.7 (35-45) L 03/14/18 13:10 POC ABG pO2 55 (80-105) L 03/14/18 13:10 POC ABG HCO3 23.0 03/14/18 13:10 POC ABG Total CO2 24 03/14/18 13:10 POC ABG O2 Sat 91 03/14/18 13:10 POC ABG Base Excess 0 03/14/18 13:10 VBG pH 7.406 (7.320-7.420) 02/25/18 23:15 FiO2 50 % 03/14/18 13:10 Sodium 133 mmol/L (137-145) L 03/17/18 04:40 Potassium 3.4 mmol/L (3.6-5.0) L 03/17/18 04:40 Chloride 90.3 mmol/L (98-107) L 03/17/18 04:40 Carbon Dioxide 24 mmol/L (22-30) 03/17/18 04:40 Anion Gap 22 mmol/L 03/17/18 04:40 BUN 45 mg/dL (9-20) H 03/17/18 04:40 Creatinine 3.6 mg/dL (0.8-1.5) H 03/17/18 04:40 Estimated GFR 20 ml/min 03/17/18 04:40 BUN/Creatinine Ratio 13 % 03/17/18 04:40 Glucose 92 mg/dL (75-100) 03/17/18 04:40 POC Glucose 137 (70-105) H 03/18/18 05:59 Lactic Acid 2.60 mmol/L (0.7-2.0) H* 03/15/18 Unknown Calcium 8.2 mg/dL (8.4-10.2) L 03/17/18 04:40 Phosphorus 5.10 mg/dL (2.5-4.5) H 03/03/18 04:30 Magnesium 1.60 mg/dL (1.7-2.3) L 03/14/18 05:30 Total Bilirubin 0.80 mg/dL (0.1-1.2) 03/16/18 05:45 Direct Bilirubin 0.5 mg/dL (0-0.2) H 03/16/18 05:45 Indirect Bilirubin 0.3 mg/dL 03/16/18 05:45 AST 55 units/L (5-40) H 03/16/18 05:45 ALT 19 units/L (7-56) 03/16/18 05:45 Alkaline Phosphatase 112 units/L (35-129) 03/16/18 05:45 C-Reactive Protein 19.80 mg/dL (0.00-1.30) H 03/04/18 05:30 Total Protein 6.3 g/dL (6.3-8.2) 03/16/18 05:45 Albumin 2.8 g/dL (3.9-5) L 03/16/18 05:45 Albumin/Globulin Ratio 0.8 % 03/16/18 05:45 Lipase 35 units/L (13-60) 02/26/18 02:58 TSH 2.670 mlU/mL (0.270-4.200) 02/26/18 00:10 Free T4 1.26 ng/dL (0.76-1.46) 02/26/18 00:10 Urine Color [place] (Yellow) 02/26/18 00:32 Urine Turbidity Hazy (Clear) 02/26/18 00:32 Urine pH 5.0 (5.0-7.0) 02/26/18 00:32 Ur Specific [place] 1.015 (1.003-1.030) 02/26/18 00:32 Urine Protein <15 mg/dl mg/dL (Negative) 02/26/18 00:32 Urine Glucose (UA) Neg mg/dL (Negative) 02/26/18 00:32 Urine Ketones Neg mg/dL (Negative) 02/26/18 00:32 Urine Blood Neg (Negative) 02/26/18 00:32 Urine Nitrite Neg (Negative) 02/26/18 00:32 Urine Bilirubin Neg (Negative) 02/26/18 00:32 Urine Urobilinogen 4.0 mg/dL (<2.0) 02/26/18 00:32 Ur Leukocyte Esterase Neg (Negative) 02/26/18 00:32 Urine WBC (Auto) 1.0 /HPF (0.0-6.0) 02/26/18 00:32 Urine RBC (Auto) 1.0 /HPF (0.0-6.0) 02/26/18 00:32 U Epithel Cells (Auto) 1.0 /HPF (0-13.0) 02/26/18 00:32 Amorphous Crystals 3+ 02/26/18 00:32 Hyaline Casts 4 /LPF 02/26/18 00:32 Urine Mucus Few /HPF 02/26/18 00:32 Urine Total Volume 490 03/09/18 17:38 Urine Creatinine 69.2 mg/dL (0.1-20.0) H 03/09/18 17:38 Ur Creatinine 24 Hour 0.3 (0.8-2.8) L 03/09/18 13:30 Height (in) 67.0 inches 03/09/18 17:38 Weight (lb) 159.0 lbs 03/09/18 17:38 Creatinine Clearance 7 03/09/18 17:38 Urine Sodium 67 mmol/L 02/26/18 13:08 Hep Bs Antigen Non-reactive (Negative) 03/11/18 14:25 Hepatitis C Antibody Non-reactive (NonReactive) 03/11/18 14:44 Blood Type A POSITIVE 03/10/18 09:00 Antibody Screen Negative 03/10/18 09:00 Crossmatch See Detail 03/10/18 09:00
[2018-03-18 12:42] LABS: Hematocrit 21.7 % (35.5-45.6); Hemoglobin 7.1 gm/dl (11.8-15.2)
--- NOTE | 2018-03-18 14:05 | Progress Note ---
Assessment and Plan Severe sepsis with septic shock. Aspiration pneumonia, healthcare associated. Acute on chronic encephalopathy. Acute on chronic kidney injury. Anemia. Hypernatremia. Metabolic acidosis. Lactic acidosis. History of hypertension. History of diabetes. History of Alzheimer dementia. - s/p tracheostomy - routine trach care per RT - continue metoprolol 5 mg IV q6h prn ordered for RVR - cardiology on case and managing further - keep Peep at 7 cmH2O for now - continue bronchodilators with pulmonary hygiene per RT - continue to wean FiO2 for sats > 90% - continue addressing VAP bundle daily - tolerating HD/UF well so far - s/p LIJ vascath - prn vasopressors (off now) if MAP <60 mmHg - strict I's & O's re: DIANNA and will leave shrestha catheter in place for now - further azotemia management per ice cream maker (input appreciated) - conservative volume management strategies at this point - continue enteral nutrition as tolerated - continue mobility protocol for pressure ulcer prophylaxis - continue GI & VTE prophylaxis - continue antibiotics; on vancomycin for MRSA pneumonia and following other cultures - ID evaluation ongoing (de-escalate Anti-infective's per ID recs) - continue contact precautions re: 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 The aggregate critical care time was [35] minutes without overlap. Time includes spent on; [x] Data Review and interpretation [x] Patient assessment and monitoring of vital signs [x] Documentation [x] Medication orders and management Subjective Date of service: 03/18/18 Principal diagnosis: Acute Hypoxemic Resp Failure; Severe Sepsis; Aspiration Pneumonai (HCAP) Interval history: Patient is seen today for: Acute Hypoxemic Resp Failure; Severe Sepsis; Aspiration Pneumonai (HCAP) Seen and examined at bedside; 24hour events reviewed; nursing and respiratory care staff consulted; no adverse overnight events reported to me; remains on MVS ; remains dialysis dependent; AMS is persistent; remains hypoxemic; s/p successful tracheostomy Objective Vital Signs - 12hr 03/18/18 03/18/18 03/18/18 02:15 02:30 02:45 Temperature Pulse Rate 102 H 103 H 105 H Pulse Rate [ Anterior Bilateral Throughout] Respiratory 20 20 20 Rate Respiratory Rate [Anterior Bilateral Throughout] Blood Pressure 111/73 105/73 114/72 O2 Sat by Pulse 96 96 96 Oximetry O2 Sat by Pulse Oximetry [ Anterior Bilateral Throughout] O2 Sat by Pulse Oximetry [ Assessment] 03/18/18 03/18/18 03/18/18 03:00 03:15 03:30 Temperature Pulse Rate 104 H 106 H 108 H Pulse Rate [ Anterior Bilateral Throughout] Respiratory 19 20 20 Rate Respiratory Rate [Anterior Bilateral Throughout] Blood Pressure 110/72 111/75 109/78 O2 Sat by Pulse 95 96 95 Oximetry O2 Sat by Pulse Oximetry [ Anterior Bilateral Throughout] O2 Sat by Pulse Oximetry [ Assessment] 03/18/18 03/18/18 03/18/18 03:34 03:45 04:00 Temperature 98.2 F Pulse Rate 108 H 107 H 109 H Pulse Rate [ Anterior Bilateral Throughout] Respiratory 20 22 Rate Respiratory Rate [Anterior Bilateral Throughout] Blood Pressure 109/78 112/76 120/79 O2 Sat by Pulse 97 96 96 Oximetry O2 Sat by Pulse Oximetry [ Anterior Bilateral Throughout] O2 Sat by Pulse Oximetry [ Assessment] 03/18/18 03/18/18 03/18/18 04:15 04:30 04:45 Temperature Pulse Rate 107 H 108 H 108 H Pulse Rate [ Anterior Bilateral Throughout] Respiratory 20 19 20 Rate Respiratory Rate [Anterior Bilateral Throughout] Blood Pressure 120/72 116/78 112/81 O2 Sat by Pulse 96 95 95 Oximetry O2 Sat by Pulse Oximetry [ Anterior Bilateral Throughout] O2 Sat by Pulse Oximetry [ Assessment] 03/18/18 03/18/18 03/18/18 05:00 05:15 05:30 Temperature Pulse Rate 109 H 116 H 117 H Pulse Rate [ Anterior Bilateral Throughout] Respiratory 21 24 26 H Rate Respiratory Rate [Anterior Bilateral Throughout] Blood Pressure 119/79 112/81 133/90 O2 Sat by Pulse 96 97 94 Oximetry O2 Sat by Pulse Oximetry [ Anterior Bilateral Throughout] O2 Sat by Pulse Oximetry [ Assessment] 03/18/18 03/18/18 03/18/18 05:45 06:00 06:15 Temperature Pulse Rate 115 H 118 H 108 H Pulse Rate [ Anterior Bilateral Throughout] Respiratory 20 22 19 Rate Respiratory Rate [Anterior Bilateral Throughout] Blood Pressure 133/90 114/77 108/71 O2 Sat by Pulse 94 96 97 Oximetry O2 Sat by Pulse Oximetry [ Anterior Bilateral Throughout] O2 Sat by Pulse Oximetry [ Assessment] 03/18/18 03/18/18 03/18/18 08:00 08:20 08:25 Temperature 99.5 F Pulse Rate 115 H Pulse Rate [ 119 H Anterior Bilateral Throughout] Respiratory Rate Respiratory 25 H Rate [Anterior Bilateral Throughout] Blood Pressure 139/87 O2 Sat by Pulse 95 Oximetry O2 Sat by Pulse Oximetry [ Anterior Bilateral Throughout] O2 Sat by Pulse Oximetry [ Assessment] 03/18/18 03/18/18 03/18/18 08:37 08:38 11:30 Temperature 100.3 F H Pulse Rate 108 H Pulse Rate [ 120 H Anterior Bilateral Throughout] Respiratory 19 Rate Respiratory 23 Rate [Anterior Bilateral Throughout] Blood Pressure 106/55 O2 Sat by Pulse Oximetry O2 Sat by Pulse 96 Oximetry [ Anterior Bilateral Throughout] O2 Sat by Pulse 95 Oximetry [ Assessment] 03/18/18 03/18/18 03/18/18 11:40 11:45 12:00 Temperature Pulse Rate 111 H 107 H 109 H Pulse Rate [ Anterior Bilateral Throughout] Respiratory Rate Respiratory Rate [Anterior Bilateral Throughout] Blood Pressure 102/56 105/60 106/59 O2 Sat by Pulse Oximetry O2 Sat by Pulse Oximetry [ Anterior Bilateral Throughout] O2 Sat by Pulse Oximetry [ Assessment] 03/18/18 03/18/18 03/18/18 12:15 12:30 12:45 Temperature Pulse Rate 108 H 110 H 110 H Pulse Rate [ Anterior Bilateral Throughout] Respiratory Rate Respiratory Rate [Anterior Bilateral Throughout] Blood Pressure 105/61 104/59 111/63 O2 Sat by Pulse Oximetry O2 Sat by Pulse Oximetry [ Anterior Bilateral Throughout] O2 Sat by Pulse Oximetry [ Assessment] 03/18/18 03/18/18 13:00 13:15 Temperature Pulse Rate 112 H 113 H Pulse Rate [ Anterior Bilateral Throughout] Respiratory Rate Respiratory Rate [Anterior Bilateral Throughout] Blood Pressure 117/69 119/71 O2 Sat by Pulse Oximetry O2 Sat by Pulse Oximetry [ Anterior Bilateral Throughout] O2 Sat by Pulse Oximetry [ Assessment] Constitutional: appears uncomfortable, other (elderly looking AAM, normocephalic and atraumatic on MVS with increased respiratory effort) Eyes: non-icteric ENT: oropharynx moist, other (ETT 24 cm TERESA) Neck: supple, no lymphadenopathy, no JVD, other (no thyromegaly) Effort: mildly labored Ascultation: Right: diminished breath sounds (base), Bilateral: rales, rhonchi Percussion: Right: dull (base), Bilateral: not dull Cardiovascular: irregular rhythm, other (No R/M, S1,S2) Gastrointestinal: normoactive bowel sounds, soft, non-tender, non-distended, other (+ PEG; No HSM, scrotal edema) Integumentary: other (poor turgor) Extremities: no cyanosis, pulses normal, no ischemia or petechiae, anasarca Neurologic: pupils equal and round, unable to assess Psychiatric: other (unable to assess re: encephalopathy) CBC and BMP: 03/20/18 05:45 03/20/18 05:45 ABG, PT/INR, D-dimer: ABG POC ABG pH 7.483 (7.35-7.45) H 03/14/18 13:10 POC ABG pCO2 30.7 (35-45) L 03/14/18 13:10 POC ABG pO2 55 (80-105) L 03/14/18 13:10 POC ABG HCO3 23.0 03/14/18 13:10 POC ABG Total CO2 24 03/14/18 13:10 POC ABG O2 Sat 91 03/14/18 13:10 PT/INR, D-dimer PT 21.5 Sec. (12.2-14.9) H 02/26/18 20:50 INR 1.75 (0.87-1.13) H 02/26/18 20:50 Abnormal lab findings: Abnormal Labs 02/25/18 02/25/18 02/25/18 23:15 23:15 23:15 WBC 12.3 H RBC 3.56 L Hgb 10.2 L Hct 33.7 L MCV 95 H MCHC 30 L RDW 17.7 H Plt Count Lymph % (Auto) [place] % (Auto) Lymph # Seg Neutrophils % Seg Neuts % (Manual) 35.0 L Lymphocytes % (Manual) 13.0 L Monocytes % (Manual) 8.0 H Nucleated RBC % Seg Neutrophils # Seg Neutrophils # Man Lymphocytes # (Manual) Monocytes # (Manual) 1.0 H PT 20.3 H INR 1.63 H POC ABG pH POC ABG pCO2 POC ABG pO2 Sodium 152 H Potassium Chloride 108.7 H Carbon Dioxide 18 L BUN 136 H Creatinine 5.2 H Glucose POC Glucose Lactic Acid Calcium 8.0 L Phosphorus Magnesium Total Bilirubin 4.50 H Direct Bilirubin AST 83 H C-Reactive Protein Total Protein Albumin 2.7 L Urine Creatinine Ur Creatinine 24 Hour Crossmatch 02/25/18 02/25/18 02/26/18 23:15 23:30 03:06 WBC RBC Hgb Hct MCV MCHC RDW Plt Count Lymph % (Auto) [place] % (Auto) Lymph # Seg Neutrophils % Seg Neuts % (Manual) Lymphocytes % (Manual) Monocytes % (Manual) Nucleated RBC % Seg Neutrophils # Seg Neutrophils # Man Lymphocytes # (Manual) Monocytes # (Manual) PT INR POC ABG pH POC ABG pCO2 25.2 L POC ABG pO2 69 L Sodium Potassium Chloride Carbon Dioxide BUN Creatinine Glucose POC Glucose Lactic Acid 7.00 H* 9.70 H* Calcium Phosphorus Magnesium Total Bilirubin Direct Bilirubin AST C-Reactive Protein Total Protein Albumin Urine Creatinine Ur Creatinine 24 Hour Crossmatch 02/26/18 02/26/18 02/26/18 05:12 05:43 07:39 WBC 23.7 H RBC 3.27 L Hgb 9.3 L Hct 31.1 L MCV 95 H MCHC 30 L RDW 17.4 H Plt Count Lymph % (Auto) [place] % (Auto) Lymph # Seg Neutrophils % Seg Neuts % (Manual) Lymphocytes % (Manual) 2.0 L Monocytes % (Manual) Nucleated RBC % 1.0 H Seg Neutrophils # Seg Neutrophils # Man 16.1 H Lymphocytes # (Manual) 0.5 L Monocytes # (Manual) 1.2 H PT INR POC ABG pH POC ABG pCO2 19.5 L POC ABG pO2 72 L Sodium Potassium Chloride Carbon Dioxide BUN Creatinine Glucose POC Glucose Lactic Acid 8.80 H* Calcium Phosphorus Magnesium Total Bilirubin Direct Bilirubin AST C-Reactive Protein Total Protein Albumin Urine Creatinine Ur Creatinine 24 Hour Crossmatch 02/26/18 02/26/18 02/26/18 07:39 12:06 13:08 WBC RBC Hgb Hct MCV MCHC RDW Plt Count Lymph % (Auto) [place] % (Auto) Lymph # Seg Neutrophils % Seg Neuts % (Manual) Lymphocytes % (Manual) Monocytes % (Manual) Nucleated RBC % Seg Neutrophils # Seg Neutrophils # Man Lymphocytes # (Manual) Monocytes # (Manual) PT INR POC ABG pH POC ABG pCO2 27.8 L POC ABG pO2 168 H Sodium 155 H Potassium Chloride 114.2 H Carbon Dioxide 14 L BUN 120 H Creatinine 4.6 H Glucose 108 H POC Glucose Lactic Acid Calcium 7.7 L Phosphorus Magnesium Total Bilirubin 4.50 H Direct Bilirubin AST 105 H C-Reactive Protein Total Protein Albumin 2.4 L Urine Creatinine 38.6 H Ur Creatinine 24 Hour Crossmatch 02/26/18 02/26/18 02/26/18 18:41 20:50 20:50 WBC RBC Hgb Hct MCV MCHC RDW Plt Count Lymph % (Auto) [place] % (Auto) Lymph # Seg Neutrophils % Seg Neuts % (Manual) Lymphocytes % (Manual) Monocytes % (Manual) Nucleated RBC % Seg Neutrophils # Seg Neutrophils # Man Lymphocytes # (Manual) Monocytes # (Manual) PT 21.5 H INR 1.75 H POC ABG pH POC ABG pCO2 POC ABG pO2 Sodium Potassium Chloride Carbon Dioxide BUN Creatinine Glucose POC Glucose 135 H Lactic Acid Calcium Phosphorus Magnesium Total Bilirubin Direct Bilirubin AST C-Reactive Protein 33.90 H Total Protein Albumin Urine Creatinine Ur Creatinine 24 Hour Crossmatch 02/27/18 02/27/18 02/27/18 03:39 04:56 04:56 WBC 20.1 H RBC 2.92 L Hgb 8.4 L Hct 27.5 L MCV MCHC 31 L RDW 17.1 H Plt Count Lymph % (Auto) [place] % (Auto) Lymph # Seg Neutrophils % Seg Neuts % (Manual) 92.0 H Lymphocytes % (Manual) 3.0 L Monocytes % (Manual) Nucleated RBC % Seg Neutrophils # Seg Neutrophils # Man 18.5 H Lymphocytes # (Manual) 0.6 L Monocytes # (Manual) PT INR POC ABG pH 7.453 H POC ABG pCO2 27.2 L POC ABG pO2 Sodium 149 H Potassium Chloride 113.1 H Carbon Dioxide 18 L BUN 103 H Creatinine 3.8 H Glucose 120 H POC Glucose Lactic Acid Calcium 7.8 L Phosphorus Magnesium Total Bilirubin Direct Bilirubin AST C-Reactive Protein Total Protein Albumin Urine Creatinine Ur Creatinine 24 Hour Crossmatch 02/27/18 02/27/18 02/27/18 12:37 12:45 17:51 WBC RBC Hgb Hct MCV MCHC RDW Plt Count Lymph % (Auto) [place] % (Auto) Lymph # Seg Neutrophils % Seg Neuts % (Manual) Lymphocytes % (Manual) Monocytes % (Manual) Nucleated RBC % Seg Neutrophils # Seg Neutrophils # Man Lymphocytes # (Manual) Monocytes # (Manual) PT INR POC ABG pH POC ABG pCO2 POC ABG pO2 Sodium Potassium Chloride Carbon Dioxide BUN Creatinine Glucose POC Glucose 169 H 133 H Lactic Acid 2.90 H* Calcium Phosphorus Magnesium Total Bilirubin Direct Bilirubin AST C-Reactive Protein Total Protein Albumin Urine Creatinine Ur Creatinine 24 Hour Crossmatch 02/28/18 02/28/18 02/28/18 00:23 05:00 05:02 WBC RBC Hgb Hct MCV MCHC RDW Plt Count Lymph % (Auto) [place] % (Auto) Lymph # Seg Neutrophils % Seg Neuts % (Manual) Lymphocytes % (Manual) Monocytes % (Manual) Nucleated RBC % Seg Neutrophils # Seg Neutrophils # Man Lymphocytes # (Manual) Monocytes # (Manual) PT INR POC ABG pH POC ABG pCO2 POC ABG pO2 Sodium Potassium Chloride Carbon Dioxide BUN Creatinine Glucose POC Glucose 161 H 116 H Lactic Acid 2.70 H* Calcium Phosphorus Magnesium Total Bilirubin Direct Bilirubin AST C-Reactive Protein Total Protein Albumin Urine Creatinine Ur Creatinine 24 Hour Crossmatch 02/28/18 02/28/18 02/28/18 05:28 07:04 09:00 WBC 22.3 H RBC 2.63 L Hgb 7.6 L Hct 24.1 L MCV MCHC 31 L RDW 17.4 H Plt Count Lymph % (Auto) [place] % (Auto) Lymph # Seg Neutrophils % Seg Neuts % (Manual) 84.0 H Lymphocytes % (Manual) 8.0 L Monocytes % (Manual) Nucleated RBC % Seg Neutrophils # Seg Neutrophils # Man 18.7 H Lymphocytes # (Manual) Monocytes # (Manual) 1.1 H PT INR POC ABG pH 7.477 H POC ABG pCO2 24.6 L POC ABG pO2 57 L Sodium Potassium Chloride Carbon Dioxide BUN Creatinine Glucose POC Glucose Lactic Acid 3.10 H* Calcium Phosphorus Magnesium Total Bilirubin Direct Bilirubin AST C-Reactive Protein Total Protein Albumin Urine Creatinine Ur Creatinine 24 Hour Crossmatch 02/28/18 02/28/18 02/28/18 09:00 11:36 17:10 WBC RBC Hgb Hct MCV MCHC RDW Plt Count Lymph % (Auto) [place] % (Auto) Lymph # Seg Neutrophils % Seg Neuts % (Manual) Lymphocytes % (Manual) Monocytes % (Manual) Nucleated RBC % Seg Neutrophils # Seg Neutrophils # Man Lymphocytes # (Manual) Monocytes # (Manual) PT INR POC ABG pH POC ABG pCO2 POC ABG pO2 Sodium Potassium 3.3 L 3.5 L Chloride Carbon Dioxide 21 L 19 L BUN 76 H 69 H Creatinine 2.8 H 2.5 H Glucose 104 H 124 H POC Glucose 107 H Lactic Acid Calcium 7.6 L 7.3 L Phosphorus 1.50 L Magnesium Total Bilirubin Direct Bilirubin AST C-Reactive Protein Total Protein Albumin Urine Creatinine Ur Creatinine 24 Hour Crossmatch 02/28/18 02/28/18 03/01/18 17:36 23:40 06:25 WBC RBC Hgb Hct MCV MCHC RDW Plt Count Lymph % (Auto) [place] % (Auto) Lymph # Seg Neutrophils % Seg Neuts % (Manual) Lymphocytes % (Manual) Monocytes % (Manual) Nucleated RBC % Seg Neutrophils # Seg Neutrophils # Man Lymphocytes # (Manual) Monocytes # (Manual) PT INR POC ABG pH 7.542 H POC ABG pCO2 23.3 L POC ABG pO2 62 L Sodium Potassium Chloride Carbon Dioxide BUN Creatinine Glucose POC Glucose 151 H 111 H Lactic Acid Calcium Phosphorus Magnesium Total Bilirubin Direct Bilirubin AST C-Reactive Protein Total Protein Albumin Urine Creatinine Ur Creatinine 24 Hour Crossmatch 03/01/18 03/01/18 03/02/18 10:00 12:12 05:21 WBC RBC Hgb Hct MCV MCHC RDW Plt Count Lymph % (Auto) [place] % (Auto) Lymph # Seg Neutrophils % Seg Neuts % (Manual) Lymphocytes % (Manual) Monocytes % (Manual) Nucleated RBC % Seg Neutrophils # Seg Neutrophils # Man Lymphocytes # (Manual) Monocytes # (Manual) PT INR POC ABG pH 7.473 H POC ABG pCO2 21.5 L POC ABG pO2 79 L Sodium Potassium 3.5 L Chloride Carbon Dioxide 18 L BUN 66 H Creatinine 2.8 H Glucose 103 H POC Glucose 176 H Lactic Acid Calcium 7.5 L Phosphorus Magnesium Total Bilirubin Direct Bilirubin AST C-Reactive Protein Total Protein Albumin Urine Creatinine Ur Creatinine 24 Hour Crossmatch 03/02/18 03/02/18 03/02/18 06:00 06:00 11:47 WBC 18.2 H RBC 2.43 L Hgb 7.2 L Hct 22.6 L MCV MCHC RDW 17.6 H Plt Count Lymph % (Auto) [place] % (Auto) Lymph # Seg Neutrophils % Seg Neuts % (Manual) Lymphocytes % (Manual) Monocytes % (Manual) Nucleated RBC % Seg Neutrophils # Seg Neutrophils # Man Lymphocytes # (Manual) Monocytes # (Manual) PT INR POC ABG pH POC ABG pCO2 POC ABG pO2 Sodium Potassium Chloride Carbon Dioxide 17 L BUN 68 H Creatinine 3.1 H Glucose 106 H POC Glucose 136 H Lactic Acid Calcium 7.2 L Phosphorus Magnesium Total Bilirubin Direct Bilirubin AST C-Reactive Protein Total Protein Albumin Urine Creatinine Ur Creatinine 24 Hour Crossmatch 03/02/18 03/03/18 03/03/18 17:35 00:54 03:38 WBC RBC Hgb Hct MCV MCHC RDW Plt Count Lymph % (Auto) [place] % (Auto) Lymph # Seg Neutrophils % Seg Neuts % (Manual) Lymphocytes % (Manual) Monocytes % (Manual) Nucleated RBC % Seg Neutrophils # Seg Neutrophils # Man Lymphocytes # (Manual) Monocytes # (Manual) PT INR POC ABG pH 7.451 H POC ABG pCO2 20.5 L POC ABG pO2 Sodium Potassium Chloride Carbon Dioxide BUN Creatinine Glucose POC Glucose 109 H 131 H Lactic Acid Calcium Phosphorus Magnesium Total Bilirubin Direct Bilirubin AST C-Reactive Protein Total Protein Albumin Urine Creatinine Ur Creatinine 24 Hour Crossmatch 03/03/18 03/03/18 03/03/18 04:30 06:15 06:15 WBC 21.1 H RBC 2.20 L Hgb 6.3 L Hct 20.8 L MCV 95 H MCHC 30 L RDW 17.8 H Plt Count Lymph % (Auto) [place] % (Auto) Lymph # Seg Neutrophils % Seg Neuts % (Manual) 71.0 H Lymphocytes % (Manual) 8.0 L Monocytes % (Manual) Nucleated RBC % Seg Neutrophils # Seg Neutrophils # Man 15.0 H Lymphocytes # (Manual) Monocytes # (Manual) 1.3 H PT INR POC ABG pH POC ABG pCO2 POC ABG pO2 Sodium 130 L D Potassium Chloride 96.4 L Carbon Dioxide 14 L BUN 69 H Creatinine 3.1 H Glucose POC Glucose Lactic Acid Calcium 7.0 L Phosphorus 5.10 H Magnesium Total Bilirubin Direct Bilirubin AST C-Reactive Protein Total Protein Albumin Urine Creatinine Ur Creatinine 24 Hour Crossmatch 03/03/18 03/03/18 03/03/18 08:37 09:38 12:13 WBC RBC Hgb Hct MCV MCHC RDW Plt Count Lymph % (Auto) [place] % (Auto) Lymph # Seg Neutrophils % Seg Neuts % (Manual) Lymphocytes % (Manual) Monocytes % (Manual) Nucleated RBC % Seg Neutrophils # Seg Neutrophils # Man Lymphocytes # (Manual) Monocytes # (Manual) PT INR POC ABG pH POC ABG pCO2 23.8 L POC ABG pO2 156 H Sodium Potassium Chloride Carbon Dioxide BUN Creatinine Glucose POC Glucose 119 H Lactic Acid Calcium Phosphorus Magnesium Total Bilirubin Direct Bilirubin AST C-Reactive Protein Total Protein Albumin Urine Creatinine Ur Creatinine 24 Hour Crossmatch See Detail 03/03/18 03/03/18 03/04/18 12:37 18:05 00:59 WBC RBC Hgb Hct MCV MCHC RDW Plt Count Lymph % (Auto) [place] % (Auto) Lymph # Seg Neutrophils % Seg Neuts % (Manual) Lymphocytes % (Manual) Monocytes % (Manual) Nucleated RBC % Seg Neutrophils # Seg Neutrophils # Man Lymphocytes # (Manual) Monocytes # (Manual) PT INR POC ABG pH POC ABG pCO2 POC ABG pO2 Sodium Potassium Chloride Carbon Dioxide BUN Creatinine Glucose POC Glucose 154 H 159 H Lactic Acid Calcium Phosphorus Magnesium 1.40 L Total Bilirubin Direct Bilirubin AST C-Reactive Protein Total Protein Albumin Urine Creatinine Ur Creatinine 24 Hour Crossmatch 03/04/18 03/04/18 03/04/18 04:27 05:30 05:30 WBC 22.6 H RBC 2.46 L Hgb 7.1 L Hct 21.7 L MCV MCHC RDW 17.2 H Plt Count Lymph % (Auto) [place] % (Auto) Lymph # Seg Neutrophils % Seg Neuts % (Manual) 84.0 H Lymphocytes % (Manual) 5.0 L Monocytes % (Manual) Nucleated RBC % Seg Neutrophils # Seg Neutrophils # Man 19.0 H Lymphocytes # (Manual) 1.1 L Monocytes # (Manual) PT INR POC ABG pH 7.486 H POC ABG pCO2 24.8 L POC ABG pO2 Sodium 135 L Potassium Chloride 96.2 L Carbon Dioxide 19 L BUN 69 H Creatinine 3.1 H Glucose 121 H POC Glucose Lactic Acid Calcium 7.1 L Phosphorus Magnesium Total Bilirubin Direct Bilirubin AST C-Reactive Protein 19.80 H Total Protein Albumin Urine Creatinine Ur Creatinine 24 Hour Crossmatch 03/04/18 03/04/18 03/04/18 05:38 11:47 17:53 WBC RBC Hgb Hct MCV MCHC RDW Plt Count Lymph % (Auto) [place] % (Auto) Lymph # Seg Neutrophils % Seg Neuts % (Manual) Lymphocytes % (Manual) Monocytes % (Manual) Nucleated RBC % Seg Neutrophils # Seg Neutrophils # Man Lymphocytes # (Manual) Monocytes # (Manual) PT INR POC ABG pH POC ABG pCO2 POC ABG pO2 Sodium Potassium Chloride Carbon Dioxide BUN Creatinine Glucose POC Glucose 134 H 109 H 113 H Lactic Acid Calcium Phosphorus Magnesium Total Bilirubin Direct Bilirubin AST C-Reactive Protein Total Protein Albumin Urine Creatinine Ur Creatinine 24 Hour Crossmatch 03/05/18 03/05/18 03/05/18 00:22 05:15 05:15 WBC 24.3 H RBC 2.29 L Hgb 6.8 L Hct 20.3 L MCV MCHC RDW 16.7 H Plt Count Lymph % (Auto) [place] % (Auto) Lymph # Seg Neutrophils % Seg Neuts % (Manual) 88.0 H Lymphocytes % (Manual) 3.0 L Monocytes % (Manual) Nucleated RBC % Seg Neutrophils # Seg Neutrophils # Man 21.4 H Lymphocytes # (Manual) 0.7 L Monocytes # (Manual) PT INR POC ABG pH POC ABG pCO2 POC ABG pO2 Sodium 132 L Potassium Chloride 91.2 L Carbon Dioxide BUN 69 H Creatinine 3.3 H Glucose POC Glucose 113 H Lactic Acid Calcium 6.9 L Phosphorus Magnesium Total Bilirubin Direct Bilirubin AST C-Reactive Protein Total Protein Albumin Urine Creatinine Ur Creatinine 24 Hour Crossmatch 03/05/18 03/05/18 03/05/18 05:36 11:51 16:00 WBC RBC Hgb Hct MCV MCHC RDW Plt Count Lymph % (Auto) [place] % (Auto) Lymph # Seg Neutrophils % Seg Neuts % (Manual) Lymphocytes % (Manual) Monocytes % (Manual) Nucleated RBC % Seg Neutrophils # Seg Neutrophils # Man Lymphocytes # (Manual) Monocytes # (Manual) PT INR POC ABG pH 7.519 H POC ABG pCO2 27.0 L POC ABG pO2 68 L Sodium Potassium Chloride Carbon Dioxide BUN Creatinine Glucose POC Glucose 118 H 131 H Lactic Acid Calcium Phosphorus Magnesium Total Bilirubin Direct Bilirubin AST C-Reactive Protein Total Protein Albumin Urine Creatinine Ur Creatinine 24 Hour Crossmatch 03/06/18 03/06/18 03/06/18 00:00 01:27 04:44 WBC 24.5 H RBC 2.90 L Hgb 8.5 L Hct 25.8 L MCV MCHC RDW 16.3 H Plt Count Lymph % (Auto) [place] % (Auto) Lymph # Seg Neutrophils % Seg Neuts % (Manual) 96.0 H Lymphocytes % (Manual) 1.5 L Monocytes % (Manual) Nucleated RBC % 1.0 H Seg Neutrophils # Seg Neutrophils # Man 23.5 H Lymphocytes # (Manual) 0.4 L Monocytes # (Manual) PT INR POC ABG pH POC ABG pCO2 POC ABG pO2 Sodium Potassium Chloride 92.9 L Carbon Dioxide BUN 67 H Creatinine 3.4 H Glucose POC Glucose 127 H Lactic Acid Calcium 7.2 L Phosphorus Magnesium Total Bilirubin Direct Bilirubin AST C-Reactive Protein Total Protein Albumin Urine Creatinine Ur Creatinine 24 Hour Crossmatch 03/06/18 03/06/18 03/06/18 04:54 05:54 12:08 WBC RBC Hgb Hct MCV MCHC RDW Plt Count Lymph % (Auto) [place] % (Auto) Lymph # Seg Neutrophils % Seg Neuts % (Manual) Lymphocytes % (Manual) Monocytes % (Manual) Nucleated RBC % Seg Neutrophils # Seg Neutrophils # Man Lymphocytes # (Manual) Monocytes # (Manual) PT INR POC ABG pH 7.551 H POC ABG pCO2 29.5 L POC ABG pO2 57 L Sodium Potassium Chloride Carbon Dioxide BUN Creatinine Glucose POC Glucose 108 H 123 H Lactic Acid Calcium Phosphorus Magnesium Total Bilirubin Direct Bilirubin AST C-Reactive Protein Total Protein Albumin Urine Creatinine Ur Creatinine 24 Hour Crossmatch 03/06/18 03/07/18 03/07/18 21:16 05:00 05:00 WBC 17.5 H RBC 2.41 L Hgb 7.3 L Hct 21.5 L MCV MCHC RDW 16.6 H Plt Count Lymph % (Auto) [place] % (Auto) Lymph # Seg Neutrophils % Seg Neuts % (Manual) 97.0 H Lymphocytes % (Manual) 1.0 L Monocytes % (Manual) Nucleated RBC % Seg Neutrophils # Seg Neutrophils # Man 17.0 H Lymphocytes # (Manual) 0.2 L Monocytes # (Manual) PT INR POC ABG pH 7.639 H POC ABG pCO2 25.3 L POC ABG pO2 Sodium Potassium Chloride 90.6 L Carbon Dioxide BUN 65 H Creatinine 3.4 H Glucose POC Glucose Lactic Acid Calcium 7.3 L Phosphorus Magnesium Total Bilirubin Direct Bilirubin AST C-Reactive Protein Total Protein Albumin Urine Creatinine Ur Creatinine 24 Hour Crossmatch 03/07/18 03/08/18 03/08/18 06:32 04:30 11:54 WBC 13.9 H RBC 2.36 L Hgb 7.1 L Hct 21.2 L MCV MCHC RDW 16.5 H Plt Count Lymph % (Auto) [place] % (Auto) Lymph # Seg Neutrophils % Seg Neuts % (Manual) 91.0 H Lymphocytes % (Manual) 2.0 L Monocytes % (Manual) Nucleated RBC % Seg Neutrophils # Seg Neutrophils # Man 12.6 H Lymphocytes # (Manual) 0.3 L Monocytes # (Manual) PT INR POC ABG pH 7.498 H POC ABG pCO2 30.2 L POC ABG pO2 44 L Sodium Potassium Chloride Carbon Dioxide BUN Creatinine Glucose POC Glucose 121 H Lactic Acid Calcium Phosphorus Magnesium Total Bilirubin Direct Bilirubin AST C-Reactive Protein Total Protein Albumin Urine Creatinine Ur Creatinine 24 Hour Crossmatch 03/08/18 03/08/18 03/09/18 18:29 23:52 05:45 WBC 12.9 H RBC 2.31 L Hgb 6.9 L Hct 20.9 L MCV MCHC RDW 16.7 H Plt Count Lymph % (Auto) 5.5 L [place] % (Auto) Lymph # 0.7 L Seg Neutrophils % 89.2 H Seg Neuts % (Manual) Lymphocytes % (Manual) Monocytes % (Manual) Nucleated RBC % Seg Neutrophils # 11.5 H Seg Neutrophils # Man Lymphocytes # (Manual) Monocytes # (Manual) PT INR POC ABG pH POC ABG pCO2 POC ABG pO2 Sodium Potassium Chloride Carbon Dioxide BUN Creatinine Glucose POC Glucose 106 H 115 H Lactic Acid Calcium Phosphorus Magnesium Total Bilirubin Direct Bilirubin AST C-Reactive Protein Total Protein Albumin Urine Creatinine Ur Creatinine 24 Hour Crossmatch 03/09/18 03/09/18 03/09/18 06:13 12:00 12:20 WBC RBC Hgb Hct MCV MCHC RDW Plt Count Lymph % (Auto) [place] % (Auto) Lymph # Seg Neutrophils % Seg Neuts % (Manual) Lymphocytes % (Manual) Monocytes % (Manual) Nucleated RBC % Seg Neutrophils # Seg Neutrophils # Man Lymphocytes # (Manual) Monocytes # (Manual) PT INR POC ABG pH POC ABG pCO2 POC ABG pO2 Sodium Potassium 3.3 L Chloride 82.2 L Carbon Dioxide 19 L D BUN 62 H Creatinine 3.0 H Glucose POC Glucose 122 H 113 H Lactic Acid Calcium 6.1 L D Phosphorus Magnesium Total Bilirubin Direct Bilirubin AST C-Reactive Protein Total Protein Albumin Urine Creatinine Ur Creatinine 24 Hour Crossmatch 03/09/18 03/09/18 03/10/18 13:30 17:38 06:55 WBC RBC 1.94 L Hgb 6.0 L Hct 17.8 L* MCV MCHC RDW 16.6 H Plt Count Lymph % (Auto) 4.6 L [place] % (Auto) Lymph # 0.5 L Seg Neutrophils % 90.0 H Seg Neuts % (Manual) Lymphocytes % (Manual) Monocytes % (Manual) Nucleated RBC % Seg Neutrophils # 9.1 H Seg Neutrophils # Man Lymphocytes # (Manual) Monocytes # (Manual) PT INR POC ABG pH POC ABG pCO2 POC ABG pO2 Sodium Potassium Chloride Carbon Dioxide BUN Creatinine Glucose POC Glucose Lactic Acid Calcium Phosphorus Magnesium Total Bilirubin Direct Bilirubin AST C-Reactive Protein Total Protein Albumin Urine Creatinine 69.2 H 69.2 H Ur Creatinine 24 Hour 0.3 L Crossmatch 03/10/18 03/10/18 03/10/18 06:55 09:00 12:14 WBC RBC Hgb Hct MCV MCHC RDW Plt Count Lymph % (Auto) [place] % (Auto) Lymph # Seg Neutrophils % Seg Neuts % (Manual) Lymphocytes % (Manual) Monocytes % (Manual) Nucleated RBC % Seg Neutrophils # Seg Neutrophils # Man Lymphocytes # (Manual) Monocytes # (Manual) PT INR POC ABG pH POC ABG pCO2 POC ABG pO2 Sodium 135 L Potassium Chloride 90.2 L Carbon Dioxide BUN 82 H Creatinine 3.9 H Glucose POC Glucose 107 H Lactic Acid Calcium 7.6 L D Phosphorus Magnesium Total Bilirubin Direct Bilirubin AST C-Reactive Protein Total Protein Albumin Urine Creatinine Ur Creatinine 24 Hour Crossmatch See Detail 03/10/18 03/10/18 03/11/18 18:14 20:02 14:25 WBC RBC Hgb 7.7 L Hct 23.3 L MCV MCHC RDW Plt Count Lymph % (Auto) [place] % (Auto) Lymph # Seg Neutrophils % Seg Neuts % (Manual) Lymphocytes % (Manual) Monocytes % (Manual) Nucleated RBC % Seg Neutrophils # Seg Neutrophils # Man Lymphocytes # (Manual) Monocytes # (Manual) PT INR POC ABG pH POC ABG pCO2 POC ABG pO2 Sodium Potassium Chloride 94.6 L Carbon Dioxide BUN 69 H Creatinine 3.7 H Glucose POC Glucose 126 H Lactic Acid Calcium 8.0 L Phosphorus Magnesium Total Bilirubin Direct Bilirubin AST C-Reactive Protein Total Protein Albumin Urine Creatinine Ur Creatinine 24 Hour Crossmatch 03/12/18 03/12/18 03/12/18 04:19 05:45 05:45 WBC RBC 2.44 L Hgb 7.4 L Hct 22.6 L MCV MCHC RDW 16.1 H Plt Count Lymph % (Auto) [place] % (Auto) Lymph # Seg Neutrophils % Seg Neuts % (Manual) Lymphocytes % (Manual) Monocytes % (Manual) Nucleated RBC % Seg Neutrophils # Seg Neutrophils # Man Lymphocytes # (Manual) Monocytes # (Manual) PT INR POC ABG pH POC ABG pCO2 POC ABG pO2 71 L Sodium Potassium Chloride 95.1 L Carbon Dioxide BUN 72 H Creatinine 4.0 H Glucose POC Glucose Lactic Acid Calcium 7.9 L Phosphorus Magnesium Total Bilirubin Direct Bilirubin AST C-Reactive Protein Total Protein Albumin Urine Creatinine Ur Creatinine 24 Hour Crossmatch 03/13/18 03/13/18 03/13/18 06:30 12:38 18:32 WBC RBC Hgb Hct MCV MCHC RDW Plt Count Lymph % (Auto) [place] % (Auto) Lymph # Seg Neutrophils % Seg Neuts % (Manual) Lymphocytes % (Manual) Monocytes % (Manual) Nucleated RBC % Seg Neutrophils # Seg Neutrophils # Man Lymphocytes # (Manual) Monocytes # (Manual) PT INR POC ABG pH 7.287 L POC ABG pCO2 54.6 H POC ABG pO2 78 L Sodium 136 L Potassium Chloride 91.8 L Carbon Dioxide BUN 76 H Creatinine 4.1 H Glucose POC Glucose 106 H Lactic Acid Calcium 8.0 L Phosphorus Magnesium Total Bilirubin Direct Bilirubin AST C-Reactive Protein Total Protein Albumin Urine Creatinine Ur Creatinine 24 Hour Crossmatch 03/13/18 03/14/18 03/14/18 23:34 05:30 05:30 WBC RBC Hgb Hct MCV MCHC RDW Plt Count Lymph % (Auto) [place] % (Auto) Lymph # Seg Neutrophils % Seg Neuts % (Manual) Lymphocytes % (Manual) Monocytes % (Manual) Nucleated RBC % Seg Neutrophils # Seg Neutrophils # Man Lymphocytes # (Manual) Monocytes # (Manual) PT INR POC ABG pH POC ABG pCO2 POC ABG pO2 Sodium 135 L Potassium Chloride 87.4 L Carbon Dioxide BUN 60 H Creatinine 3.7 H Glucose 102 H POC Glucose 111 H Lactic Acid Calcium 7.9 L Phosphorus Magnesium 1.60 L Total Bilirubin Direct Bilirubin AST C-Reactive Protein Total Protein Albumin Urine Creatinine Ur Creatinine 24 Hour Crossmatch 03/14/18 03/14/18 03/14/18 08:30 12:10 13:10 WBC RBC 2.58 L Hgb 7.9 L Hct 24.2 L MCV MCHC RDW 16.0 H Plt Count Lymph % (Auto) [place] % (Auto) Lymph # Seg Neutrophils % Seg Neuts % (Manual) Lymphocytes % (Manual) Monocytes % (Manual) Nucleated RBC % Seg Neutrophils # Seg Neutrophils # Man Lymphocytes # (Manual) Monocytes # (Manual) PT INR POC ABG pH 7.483 H POC ABG pCO2 30.7 L POC ABG pO2 55 L Sodium Potassium Chloride Carbon Dioxide BUN Creatinine Glucose POC Glucose 118 H Lactic Acid Calcium Phosphorus Magnesium Total Bilirubin Direct Bilirubin AST C-Reactive Protein Total Protein Albumin Urine Creatinine Ur Creatinine 24 Hour Crossmatch 03/14/18 03/15/18 03/15/18 18:05 06:45 06:45 WBC RBC 2.39 L Hgb 7.2 L Hct 22.0 L MCV MCHC RDW 16.2 H Plt Count 130 L Lymph % (Auto) 8.7 L [place] % (Auto) 8.7 H Lymph # 0.8 L Seg Neutrophils % 81.5 H Seg Neuts % (Manual) Lymphocytes % (Manual) Monocytes % (Manual) Nucleated RBC % Seg Neutrophils # Seg Neutrophils # Man Lymphocytes # (Manual) Monocytes # (Manual) PT INR POC ABG pH POC ABG pCO2 POC ABG pO2 Sodium 133 L Potassium Chloride 90.7 L Carbon Dioxide BUN 64 H Creatinine 4.7 H Glucose 118 H POC Glucose 129 H Lactic Acid Calcium 7.9 L Phosphorus Magnesium Total Bilirubin Direct Bilirubin AST 55 H C-Reactive Protein Total Protein 6.2 L Albumin 2.8 L Urine Creatinine Ur Creatinine 24 Hour Crossmatch 03/15/18 03/15/18 03/15/18 12:22 18:01 Unknown WBC RBC Hgb Hct MCV MCHC RDW Plt Count Lymph % (Auto) [place] % (Auto) Lymph # Seg Neutrophils % Seg Neuts % (Manual) Lymphocytes % (Manual) Monocytes % (Manual) Nucleated RBC % Seg Neutrophils # Seg Neutrophils # Man Lymphocytes # (Manual) Monocytes # (Manual) PT INR POC ABG pH POC ABG pCO2 POC ABG pO2 Sodium Potassium Chloride Carbon Dioxide BUN Creatinine Glucose POC Glucose 140 H 162 H Lactic Acid 2.60 H* Calcium Phosphorus Magnesium Total Bilirubin Direct Bilirubin AST C-Reactive Protein Total Protein Albumin Urine Creatinine Ur Creatinine 24 Hour Crossmatch 03/16/18 03/16/18 03/16/18 00:13 05:26 05:45 WBC RBC Hgb Hct MCV MCHC RDW Plt Count Lymph % (Auto) [place] % (Auto) Lymph # Seg Neutrophils % Seg Neuts % (Manual) Lymphocytes % (Manual) Monocytes % (Manual) Nucleated RBC % Seg Neutrophils # Seg Neutrophils # Man Lymphocytes # (Manual) Monocytes # (Manual) PT INR POC ABG pH POC ABG pCO2 POC ABG pO2 Sodium 128 L Potassium Chloride 85.4 L Carbon Dioxide 21 L BUN 65 H Creatinine 4.8 H Glucose 201 H POC Glucose 141 H 162 H Lactic Acid Calcium 8.0 L Phosphorus Magnesium Total Bilirubin Direct Bilirubin AST C-Reactive Protein Total Protein Albumin Urine Creatinine Ur Creatinine 24 Hour Crossmatch 03/16/18 03/16/18 03/16/18 05:45 05:45 12:03 WBC RBC 2.43 L Hgb 7.5 L Hct 22.5 L MCV MCHC RDW 16.3 H Plt Count Lymph % (Auto) [place] % (Auto) Lymph # Seg Neutrophils % Seg Neuts % (Manual) 89.0 H Lymphocytes % (Manual) 4.0 L Monocytes % (Manual) Nucleated RBC % Seg Neutrophils # Seg Neutrophils # Man 9.2 H Lymphocytes # (Manual) 0.4 L Monocytes # (Manual) PT INR POC ABG pH POC ABG pCO2 POC ABG pO2 Sodium Potassium Chloride Carbon Dioxide BUN Creatinine Glucose POC Glucose 157 H Lactic Acid Calcium Phosphorus Magnesium Total Bilirubin Direct Bilirubin 0.5 H AST 55 H C-Reactive Protein Total Protein Albumin 2.8 L Urine Creatinine Ur Creatinine 24 Hour Crossmatch 03/17/18 03/17/18 03/17/18 00:03 04:40 04:40 WBC RBC 2.42 L Hgb 7.4 L Hct 22.3 L MCV MCHC RDW 16.1 H Plt Count Lymph % (Auto) [place] % (Auto) Lymph # Seg Neutrophils % Seg Neuts % (Manual) Lymphocytes % (Manual) Monocytes % (Manual) Nucleated RBC % Seg Neutrophils # Seg Neutrophils # Man Lymphocytes # (Manual) Monocytes # (Manual) PT INR POC ABG pH POC ABG pCO2 POC ABG pO2 Sodium 133 L Potassium 3.4 L Chloride 90.3 L Carbon Dioxide BUN 45 H Creatinine 3.6 H Glucose POC Glucose 108 H Lactic Acid Calcium 8.2 L Phosphorus Magnesium Total Bilirubin Direct Bilirubin AST C-Reactive Protein Total Protein Albumin Urine Creatinine Ur Creatinine 24 Hour Crossmatch 03/17/18 03/18/18 03/18/18 18:14 01:16 05:59 WBC RBC Hgb Hct MCV MCHC RDW Plt Count Lymph % (Auto) [place] % (Auto) Lymph # Seg Neutrophils % Seg Neuts % (Manual) Lymphocytes % (Manual) Monocytes % (Manual) Nucleated RBC % Seg Neutrophils # Seg Neutrophils # Man Lymphocytes # (Manual) Monocytes # (Manual) PT INR POC ABG pH POC ABG pCO2 POC ABG pO2 Sodium Potassium Chloride Carbon Dioxide BUN Creatinine Glucose POC Glucose 113 H 134 H 137 H Lactic Acid Calcium Phosphorus Magnesium Total Bilirubin Direct Bilirubin AST C-Reactive Protein Total Protein Albumin Urine Creatinine Ur Creatinine 24 Hour Crossmatch 03/18/18 11:35 WBC RBC Hgb 7.1 L Hct 21.7 L MCV MCHC RDW Plt Count Lymph % (Auto) [place] % (Auto) Lymph # Seg Neutrophils % Seg Neuts % (Manual) Lymphocytes % (Manual) Monocytes % (Manual) Nucleated RBC % Seg Neutrophils # Seg Neutrophils # Man Lymphocytes # (Manual) Monocytes # (Manual) PT INR POC ABG pH POC ABG pCO2 POC ABG pO2 Sodium Potassium Chloride Carbon Dioxide BUN Creatinine Glucose POC Glucose Lactic Acid Calcium Phosphorus Magnesium Total Bilirubin Direct Bilirubin AST C-Reactive Protein Total Protein Albumin Urine Creatinine Ur Creatinine 24 Hour Crossmatch Allied health notes reviewed: RT
[2018-03-18] MEDS: HEPARIN IV PRN (15:33)
[2018-03-18] MEDS: KEPPRA FEEDTUBE SCH ×2 (19:24→19:25)
[2018-03-18] MEDS: CORDARONE 900 MG in D5W 482 ML IV SCH (19:29)
[2018-03-19 01:21] LABS: Calcium 7.9 mg/dL (8.4-10.2)
[2018-03-19 04:42] LABS: Basophils % (Auto) 0.2 % (0.0-1.8); Eosinophils # (Auto) 0.1 K/mm3 (0.0-0.4); Eosinophils % (Auto) 0.5 % (0.0-4.3); Hematocrit 21.3 % (35.5-45.6); Lymphocytes # (Auto) 0.7 K/mm3 (1.2-5.4); Lymphocytes % (Auto) 4.6 % (13.4-35.0); Mean Corpuscular HGB Conc 33 % (32-34); Mean Corpuscular Hemoglobin 30 pg (28-32); Mean Corpuscular Volume 93 fl (84-94); Monocytes # (Auto) 1.7 K/mm3 (0.0-0.8); Monocytes % (Auto) 11.2 % (0.0-7.3); Platelet Count 374 K/mm3 (140-440); Red Cell Distribution Width 16.6 % (13.2-15.2)
[2018-03-19] MEDS: KEPPRA FEEDTUBE SCH ×2 (05:55→20:31)
[2018-03-19] MEDS: HumuLIN R SUB-Q SCH ×4 (05:56→20:31)
[2018-03-19] MEDS: DUONEB *Not for PRN Use IH SCH ×3 (08:06→23:08)
[2018-03-19] MEDS: PEPCID PO SCH (10:21)
[2018-03-19] MEDS: BABY ASPIRIN PO SCH (10:22)
[2018-03-19] MEDS: HEPARIN SUB-Q SCH ×2 (10:22→21:46)
[2018-03-19] MEDS: ROBINUL PO SCH ×4 (10:25→21:46)
[2018-03-19] MEDS: SODIUM CHLORIDE FLUSH SYRINGE 10 ML IV SCH (10:27)
--- NOTE | 2018-03-19 10:55 | Progress Note ---
Assessment and Plan impression * Acute renal failure. Most likely secondary to ATN * Status post cardiac arrest * Respiratory failure * Encephalopathy * Sepsis * CVA * hypokalemia Recommendations * No evidence of renal recovery at this time * Continue maintenance dialysis as needed. * patient is significantly volume overloaded . Schedule patient for additional treatment today * Shall remove fluid as tolerated . IV albumin for BP support * Monitor H/H and transfuse as needed * Avoid nephrotoxins * Adjust diet and meds for GFR less than 10 * Monitor fluid status and electrolytes closely * His overall prognosis appears to be extremely poor Subjective Date of service: 03/19/18 Principal diagnosis: Acute Hypoxemic Resp Failure; Severe Sepsis; Aspiration Pneumonai (HCAP) Interval history: patient remains on the ventilator. On 50% FiO2. Sedated. Currently off pressors. On amiodarone drip Objective - Vital Signs Vital signs: Vital Signs - 12hr 03/18/18 03/18/18 03/18/18 23:00 23:15 23:30 Temperature Pulse Rate 104 H 103 H 99 H Pulse Rate [ Anterior Bilateral Throughout] Respiratory 20 18 17 Rate Respiratory Rate [Anterior Bilateral Throughout] Blood Pressure 126/82 126/82 98/68 O2 Sat by Pulse 98 98 100 Oximetry O2 Sat by Pulse Oximetry [ Assessment] 03/18/18 03/18/18 03/18/18 23:44 23:45 23:46 Temperature Pulse Rate 101 H 102 H Pulse Rate [ 102 H Anterior Bilateral Throughout] Respiratory 18 Rate Respiratory 22 Rate [Anterior Bilateral Throughout] Blood Pressure 98/68 112/79 O2 Sat by Pulse 99 100 Oximetry O2 Sat by Pulse Oximetry [ Assessment] 03/19/18 03/19/18 03/19/18 00:00 00:15 00:16 Temperature 99 F Pulse Rate 99 H 98 H Pulse Rate [ Anterior Bilateral Throughout] Respiratory 17 17 Rate Respiratory Rate [Anterior Bilateral Throughout] Blood Pressure 98/66 102/67 O2 Sat by Pulse 97 97 99 Oximetry O2 Sat by Pulse Oximetry [ Assessment] 03/19/18 03/19/18 03/19/18 00:30 00:45 01:00 Temperature Pulse Rate 97 H 96 H 97 H Pulse Rate [ Anterior Bilateral Throughout] Respiratory 17 18 19 Rate Respiratory Rate [Anterior Bilateral Throughout] Blood Pressure 100/64 101/62 101/65 O2 Sat by Pulse 96 96 96 Oximetry O2 Sat by Pulse Oximetry [ Assessment] 03/19/18 03/19/18 03/19/18 01:15 01:30 01:45 Temperature Pulse Rate 96 H 103 H 102 H Pulse Rate [ Anterior Bilateral Throughout] Respiratory 18 21 18 Rate Respiratory Rate [Anterior Bilateral Throughout] Blood Pressure 98/60 118/78 106/69 O2 Sat by Pulse 97 97 99 Oximetry O2 Sat by Pulse Oximetry [ Assessment] 03/19/18 03/19/18 03/19/18 02:00 02:15 02:30 Temperature Pulse Rate 100 H 98 H 100 H Pulse Rate [ Anterior Bilateral Throughout] Respiratory 15 16 17 Rate Respiratory Rate [Anterior Bilateral Throughout] Blood Pressure 105/71 100/68 100/68 O2 Sat by Pulse 100 100 100 Oximetry O2 Sat by Pulse Oximetry [ Assessment] 03/19/18 03/19/18 03/19/18 02:45 03:00 03:09 Temperature Pulse Rate 103 H 99 H 100 H Pulse Rate [ Anterior Bilateral Throughout] Respiratory 20 20 Rate Respiratory Rate [Anterior Bilateral Throughout] Blood Pressure 107/66 93/57 93/57 O2 Sat by Pulse 99 99 99 Oximetry O2 Sat by Pulse Oximetry [ Assessment] 03/19/18 03/19/18 03/19/18 03:15 03:30 03:45 Temperature Pulse Rate 100 H 102 H 107 H Pulse Rate [ Anterior Bilateral Throughout] Respiratory 18 16 24 Rate Respiratory Rate [Anterior Bilateral Throughout] Blood Pressure 93/58 92/55 116/75 O2 Sat by Pulse 100 100 99 Oximetry O2 Sat by Pulse Oximetry [ Assessment] 03/19/18 03/19/18 03/19/18 04:00 04:15 04:30 Temperature 97.9 F Pulse Rate 100 H 100 H 100 H Pulse Rate [ Anterior Bilateral Throughout] Respiratory 16 16 17 Rate Respiratory Rate [Anterior Bilateral Throughout] Blood Pressure 89/58 99/61 103/66 O2 Sat by Pulse 100 100 100 Oximetry O2 Sat by Pulse Oximetry [ Assessment] 03/19/18 03/19/18 03/19/18 04:45 05:00 05:15 Temperature Pulse Rate 100 H 100 H 101 H Pulse Rate [ Anterior Bilateral Throughout] Respiratory 15 12 16 Rate Respiratory Rate [Anterior Bilateral Throughout] Blood Pressure 106/68 107/69 103/74 O2 Sat by Pulse 100 100 100 Oximetry O2 Sat by Pulse Oximetry [ Assessment] 03/19/18 03/19/18 03/19/18 05:30 05:45 06:00 Temperature Pulse Rate 104 H 112 H 107 H Pulse Rate [ Anterior Bilateral Throughout] Respiratory 15 26 H 21 Rate Respiratory Rate [Anterior Bilateral Throughout] Blood Pressure 103/74 120/79 107/80 O2 Sat by Pulse 100 97 98 Oximetry O2 Sat by Pulse Oximetry [ Assessment] 03/19/18 03/19/18 03/19/18 06:15 06:30 06:45 Temperature Pulse Rate 103 H 110 H 105 H Pulse Rate [ Anterior Bilateral Throughout] Respiratory 19 19 15 Rate Respiratory Rate [Anterior Bilateral Throughout] Blood Pressure 99/72 111/66 111/71 O2 Sat by Pulse 99 100 100 Oximetry O2 Sat by Pulse Oximetry [ Assessment] 03/19/18 03/19/18 03/19/18 07:00 07:15 07:30 Temperature Pulse Rate 103 H 102 H 105 H Pulse Rate [ Anterior Bilateral Throughout] Respiratory 15 19 22 Rate Respiratory Rate [Anterior Bilateral Throughout] Blood Pressure 101/65 111/66 117/75 O2 Sat by Pulse 100 100 100 Oximetry O2 Sat by Pulse Oximetry [ Assessment] 03/19/18 03/19/18 03/19/18 07:43 07:45 08:00 Temperature 97.7 F Pulse Rate 103 H 102 H Pulse Rate [ Anterior Bilateral Throughout] Respiratory 21 20 Rate Respiratory Rate [Anterior Bilateral Throughout] Blood Pressure 107/70 110/69 O2 Sat by Pulse 100 100 Oximetry O2 Sat by Pulse 100 Oximetry [ Assessment] 03/19/18 03/19/18 03/19/18 08:06 08:15 08:16 Temperature Pulse Rate 99 H Pulse Rate [ 114 H 110 H Anterior Bilateral Throughout] Respiratory 19 Rate Respiratory 22 22 Rate [Anterior Bilateral Throughout] Blood Pressure 114/67 O2 Sat by Pulse 100 Oximetry O2 Sat by Pulse Oximetry [ Assessment] 03/19/18 03/19/18 08:20 08:30 Temperature Pulse Rate 115 H Pulse Rate [ Anterior Bilateral Throughout] Respiratory 19 Rate Respiratory Rate [Anterior Bilateral Throughout] Blood Pressure 114/67 O2 Sat by Pulse 98 98 Oximetry O2 Sat by Pulse Oximetry [ Assessment] - General Appearance General appearance: well-developed, well-nourished, appears stated age, intubated EENT: PERRL, mucous membranes moist Neck: no JVD, other (tracheostomy tube in place ) Respiratory: Present: [facility] Cardiology: regular, normal heart rate Gastrointestinal: normal, normoactive bowel sounds, other (PEG tube in place ) Integumentary: other (2+ edema ) - Lab 03/19/18 04:00 03/19/18 23:40 Most recent lab results Calcium 7.9 mg/dL (8.4-10.2) L 03/19/18 23:40 Phosphorus 5.10 mg/dL (2.5-4.5) H 03/03/18 04:30 Magnesium 1.60 mg/dL (1.7-2.3) L 03/14/18 05:30 Urine Creatinine 69.2 mg/dL (0.1-20.0) H 03/09/18 17:38 Urine Sodium 67 mmol/L 02/26/18 13:08
[2018-03-19] MEDS ORDERED: NACL 0.9% 100 ML IV PRN (10:56)
--- NOTE | 2018-03-19 12:54 | Progress Note ---
Assessment and Plan To continue vasopressors. D/C IV amiodarone and start PO amiodarone through PEG.No full anticoagulation.Prognosis is guarded. Monitor H and H - Patient Problems (1) Atrial flutter with rapid ventricular response Current Visit: Yes Status: Resolved (2) Acute kidney injury superimposed on CKD Current Visit: Yes Status: Acute (3) Anemia Current Visit: Yes Status: Chronic Qualifiers: Anemia type: unspecified type Qualified Code(s): D64.9 - Anemia, unspecified (4) Atrial fibrillation with RVR Current Visit: Yes Status: Resolved (5) Dehydration, severe Current Visit: Yes Status: Acute (6) Pneumonia Current Visit: Yes Status: Acute Qualifiers: Pneumonia type: due to unspecified organism Laterality: left Lung location: lower lobe of lung Qualified Code(s): J18.1 - Lobar pneumonia, unspecified organism (7) Sacral decubitus ulcer, stage III Current Visit: Yes Status: Chronic (8) Septic shock Current Visit: Yes Status: Acute (9) BPH (benign prostatic hyperplasia) Current Visit: Yes Status: Chronic Qualifiers: Lower urinary tract symptom presence: symptoms present (10) Hyperlipidemia Current Visit: Yes Status: Chronic Qualifiers: Hyperlipidemia type: mixed hyperlipidemia Qualified Code(s): E78.2 - Mixed hyperlipidemia (11) Acute CVA (cerebrovascular accident) Current Visit: No Status: Acute (12) Acute encephalopathy Current Visit: No Status: Acute (13) Altered mental status Current Visit: No Status: Acute (14) Carotid stenosis Current Visit: No Status: Chronic (15) Hyponatremia Current Visit: No Status: Acute (16) Neurogenic dysphagia Current Visit: No Status: Acute (17) Status post tracheostomy Current Visit: Yes Status: Acute Subjective Date of service: 03/19/18 Principal diagnosis: Acute Hypoxemic Resp Failure; Severe Sepsis; Aspiration Pneumonai (HCAP) Interval history: S/P Tracheostomy. Rhythm: NSR,Still on vasopressors and IV amiodarone. Hb 7 today. Objective Vital Signs Temp Pulse Pulse Pulse Pulse Resp Resp 03/19/18 12:00 99.1 F 03/19/18 11:30 101 H 21 03/19/18 11:15 104 H 20 03/19/18 11:00 110 H 17 03/19/18 10:45 103 H 22 03/19/18 10:30 109 H 15 03/19/18 10:15 103 H 21 03/19/18 10:00 103 H 20 03/19/18 09:45 107 H 27 H 03/19/18 09:30 104 H 19 03/19/18 09:15 106 H 18 03/19/18 09:00 106 H 21 03/19/18 08:45 105 H 20 03/19/18 08:30 115 H 19 03/19/18 08:20 03/19/18 08:16 110 H 22 03/19/18 08:15 99 H 19 03/19/18 08:06 114 H 22 03/19/18 08:00 102 H 20 03/19/18 07:45 103 H 21 03/19/18 07:43 97.7 F 03/19/18 07:30 105 H 22 03/19/18 07:15 102 H 19 03/19/18 07:00 103 H 15 03/19/18 06:45 105 H 15 03/19/18 06:30 110 H 19 03/19/18 06:15 103 H 19 03/19/18 06:00 107 H 21 03/19/18 05:45 112 H 26 H 03/19/18 05:30 104 H 15 03/19/18 05:15 101 H 16 03/19/18 05:00 100 H 12 03/19/18 04:45 100 H 15 03/19/18 04:30 100 H 03/19/18 04:15 100 H 16 03/19/18 04:00 97.9 F 100 H 03/19/18 03:45 107 H 24 03/19/18 03:30 102 H 16 03/19/18 03:15 100 H 18 03/19/18 03:09 100 H 03/19/18 03:00 99 H 20 03/19/18 02:45 103 H 20 03/19/18 02:30 100 H 17 03/19/18 02:15 98 H 16 03/19/18 02:00 100 H 15 03/19/18 01:45 102 H 18 03/19/18 01:30 103 H 21 03/19/18 01:15 96 H 18 03/19/18 01:00 97 H 19 03/19/18 00:45 96 H 18 03/19/18 00:30 97 H 17 03/19/18 00:16 03/19/18 00:15 99 F 98 H 17 03/19/18 00:00 99 H 17 03/18/18 23:46 102 H 22 03/18/18 23:45 102 H 18 03/18/18 23:44 101 H 03/18/18 23:30 99 H 17 03/18/18 23:15 103 H 18 03/18/18 23:00 104 H 20 03/18/18 22:45 101 H 19 03/18/18 22:30 98 H 24 03/18/18 22:15 92 H 18 03/18/18 22:00 94 H 18 03/18/18 21:45 94 H 22 03/18/18 21:30 97 H 20 03/18/18 21:15 104 H 16 03/18/18 21:00 99 H 22 03/18/18 20:45 96 H 18 03/18/18 20:30 98 H 20 03/18/18 20:21 03/18/18 20:15 102 H 20 03/18/18 20:00 99.1 F 102 H 96 H 92 H 17 03/18/18 19:45 110 H 19 03/18/18 19:30 105 H 20 03/18/18 19:16 115 H 03/18/18 19:15 113 H 24 03/18/18 19:00 03/18/18 18:45 128 H 25 H 03/18/18 18:30 112 H 22 03/18/18 18:15 108 H 21 03/18/18 18:00 109 H 22 03/18/18 17:55 03/18/18 17:45 107 H 22 03/18/18 17:30 109 H 24 03/18/18 17:15 108 H 108 H 21 23 03/18/18 17:00 109 H 22 03/18/18 16:50 110 H 24 03/18/18 16:45 112 H 22 03/18/18 16:30 113 H 22 03/18/18 16:15 112 H 24 03/18/18 16:00 100.3 F H 116 H 22 03/18/18 15:45 113 H 22 03/18/18 15:30 99.8 F H 115 H 22 03/18/18 15:15 116 H 23 03/18/18 15:00 114 H 24 03/18/18 14:45 123 H 24 03/18/18 14:30 119 H 19 03/18/18 14:15 115 H 23 03/18/18 14:00 115 H 21 03/18/18 13:50 118 H 03/18/18 13:45 114 H 21 03/18/18 13:30 115 H 22 03/18/18 13:15 117 H 21 03/18/18 13:00 112 H 22 BP Pulse Ox Pulse Ox Pulse Ox 03/19/18 12:00 03/19/18 11:30 98/65 99 03/19/18 11:15 97/63 100 03/19/18 11:00 98/64 100 03/19/18 10:45 98/64 100 03/19/18 10:30 109/72 100 03/19/18 10:15 109/72 100 03/19/18 10:00 102/64 100 03/19/18 09:45 124/82 100 03/19/18 09:30 111/70 100 03/19/18 09:15 115/72 100 03/19/18 09:00 110/71 99 03/19/18 08:45 111/70 100 03/19/18 08:30 114/67 98 03/19/18 08:20 98 03/19/18 08:16 03/19/18 08:15 114/67 100 03/19/18 08:06 03/19/18 08:00 110/69 100 100 03/19/18 07:45 107/70 100 03/19/18 07:43 03/19/18 07:30 117/75 100 03/19/18 07:15 111/66 100 03/19/18 07:00 101/65 100 03/19/18 06:45 111/71 100 03/19/18 06:30 111/66 100 03/19/18 06:15 99/72 99 03/19/18 06:00 107/80 98 03/19/18 05:45 120/79 97 03/19/18 05:30 103/74 100 03/19/18 05:15 103/74 100 03/19/18 05:00 107/69 100 03/19/18 04:45 106/68 100 03/19/18 04:30 103/66 100 07/08/18 04:15 99/61 100 07/18 04:00 89/58 100 03/19/18 03:45 116/75 99 [id number] 03:30 92/55 100 03/19/18 03:15 93/58 100 18 03:09 93/57 99 03/19/18 03:00 93/57 99 03/19/18 02:45 107/66 99 03/19/18 02:30 100/68 100 03/19/18 02:15 100/68 100 03/19/18 02:00 105/71 100 03/19/18 01:45 106/69 99 03/19/18 01:30 118/78 97 03/19/18 01:15 98/60 97 03/19/18 01:00 101/65 96 03/19/18 00:45 101/62 96 03/19/18 00:30 100/64 96 03/19/18 00:16 99 03/19/18 00:15 102/67 97 03/19/18 00:00 98/66 97 03/18/18 23:46 07 23:45 112/79 100 03/18/18 23:44 98/68 99 03/18/18 23:30 98/68 100 03/18/18 23:15 126/82 98 03/18/18 23:00 126/82 98 18 22:45 132/75 99 03/18/18 22:30 125/80 99 18 22:15 114/70 100 03/18/18 22:00 115/71 98 03/18/18 21:45 115/76 99 18 21:30 115/76 99 18 21:15 105/66 97 18 21:00 105/66 99 18 20:45 109/65 99 0718 20:30 104/60 99 18 20:21 98 18 20:15 104/65 99 18 20:00 101/59 98 [id number] 19:45 109/64 98 0718 19:30 111/66 98 18 19:16 133/82 97 03/18/18 19:15 133/82 98 03/18/18 19:00 133/82 03/18/18 18:45 124/81 95 03/18/18 18:30 124/81 97 03/18/18 18:15 105/64 98 03/18/18 18:00 117/62 99 03/18/18 17:55 98 03/18/18 17:45 101/62 98 03/18/18 17:30 116/67 98 03/18/18 17:15 99/59 97 03/18/18 17:00 104/59 96 03/18/18 16:50 03/18/18 16:45 117/62 96 03/18/18 16:30 115/64 95 03/18/18 16:15 113/65 95 03/18/18 16:00 111/61 95 03/18/18 15:45 113/63 95 03/18/18 15:30 109/58 95 97 03/18/18 15:15 123/73 94 03/18/18 15:00 115/63 94 03/18/18 14:45 117/66 95 03/18/18 14:30 109/74 94 03/18/18 14:15 111/69 95 03/18/18 14:00 118/62 94 03/18/18 13:50 109/74 95 03/18/18 13:45 110/65 95 03/18/18 13:30 119/69 95 03/18/18 13:15 119/71 95 03/18/18 13:00 117/69 95 - Physical Examination General: Other (intubated, nonverbal, S/P Tracheostomy.) HEENT: Positive: EOMI, Normocephaly, Mucus Membranes Moist Neck: Positive: neck supple, trachea midline, Other (S/P Tracheostomy.) Cardiac: Positive: Reg Rate and Rhythm Lungs: Positive: clear to auscultation, Normal Breath Sounds Neuro: Positive: Other (nonverbal, left hemiplegia) Abdomen: Positive: Soft, Active Bowel Sounds. Negative: Tender Skin: Positive: Clear. Negative: Rash Musculoskeletal: Decreased Range of Motion Extremities: Present: +3 Edema (BLE) - Labs and Meds CBC 03/19/18 Range/Units 04:00 WBC 15.3 H (4.5-11.0) K/mm3 RBC 2.30 L (3.65-5.03) M/mm3 Hgb 7.0 L (11.8-15.2) gm/dl Hct 21.3 L (35.5-45.6) % Plt Count 374 (140-440) K/mm3 Lymph # 0.7 L (1.2-5.4) K/mm3 [place] # 1.7 H (0.0-0.8) K/mm3 Eos # 0.1 (0.0-0.4) K/mm3 Baso # 0.0 (0.0-0.1) K/mm3 Comprehensive Metabolic Panel 03/19/18 Range/Units 23:40 Sodium 132 L (137-145) mmol/L Potassium 4.0 (3.6-5.0) mmol/L Chloride 91.4 L (98-107) mmol/L Carbon Dioxide 25 (22-30) mmol/L BUN 36 H (9-20) mg/dL Creatinine 3.0 H (0.8-1.5) mg/dL Glucose 94 (75-100) mg/dL Calcium 7.9 L (8.4-10.2) mg/dL - Imaging and Cardiology EKG: report reviewed, image reviewed - EKG Sinus rhythms and dysrhythmias: sinus rhythm, sinus tachycardia - Allied health notes Allied health notes reviewed: RT
--- NOTE | 2018-03-19 13:24 | Progress Note ---
Assessment and Plan Severe sepsis with septic shock. Aspiration pneumonia, healthcare associated. Acute on chronic encephalopathy. Acute on chronic kidney injury. Anemia. Hypernatremia. Metabolic acidosis. Lactic acidosis. History of hypertension. History of diabetes. History of Alzheimer dementia. - keep Peep at 7 cmH2O for now - continue bronchodilators with pulmonary hygiene per RT - continue to wean FiO2 for sats > 90% (dropped to 40%) - Begin SBT's in am if does no decompensation - continue addressing VAP bundle daily - s/p tracheostomy - continue routine trach care per RT - continue metoprolol 5 mg IV q6h prn ordered for RVR - cardiology on case and managing further - tolerating HD/UF well so far - s/p LIJ vascath - prn vasopressors (off now) if MAP <60 mmHg - strict I's & O's re: DIANNA and will leave shrestha catheter in place for now - further azotemia management per refrigeration mechanic (input appreciated) - conservative volume management strategies at this point - continue enteral nutrition as tolerated - continue mobility protocol for pressure ulcer prophylaxis - continue GI & VTE prophylaxis - continue antibiotics; on vancomycin for MRSA pneumonia and following other cultures - ID evaluation ongoing (de-escalate Anti-infective's per ID recs) - continue contact precautions re: 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 The aggregate critical care time was [30] minutes without overlap. Time includes spent on; [x] Data Review and interpretation [x] Patient assessment and monitoring of vital signs [x] Documentation [x] Medication orders and management Subjective Date of service: 03/19/18 Principal diagnosis: Acute Hypoxemic Resp Failure; Severe Sepsis; Aspiration Pneumonai (HCAP) Interval history: Patient is seen today for: Acute Hypoxemic Resp Failure; Severe Sepsis; Aspiration Pneumonai (HCAP) Seen and examined at bedside; 24hour events reviewed; nursing and respiratory care staff consulted; no adverse overnight events reported to me; remains on MVS ; remains dialysis dependent; AMS is persistent; remains hypoxemic but room to drop FiO2 to 40% today; HD/UF ongoing at time of my evaluation Objective Vital Signs - 12hr 03/19/18 03/19/18 03/19/18 01:30 01:45 02:00 Temperature Pulse Rate 103 H 102 H 100 H Pulse Rate [ Anterior Bilateral Throughout] Respiratory 21 18 15 Rate Respiratory Rate [Anterior Bilateral Throughout] Blood Pressure 118/78 106/69 105/71 O2 Sat by Pulse 97 99 100 Oximetry O2 Sat by Pulse Oximetry [ Assessment] 03/19/18 03/19/18 03/19/18 02:15 02:30 02:45 Temperature Pulse Rate 98 H 100 H 103 H Pulse Rate [ Anterior Bilateral Throughout] Respiratory 16 17 20 Rate Respiratory Rate [Anterior Bilateral Throughout] Blood Pressure 100/68 100/68 107/66 O2 Sat by Pulse 100 100 99 Oximetry O2 Sat by Pulse Oximetry [ Assessment] 03/19/18 03/19/18 03/19/18 03:00 03:09 03:15 Temperature Pulse Rate 99 H 100 H 100 H Pulse Rate [ Anterior Bilateral Throughout] Respiratory 20 18 Rate Respiratory Rate [Anterior Bilateral Throughout] Blood Pressure 93/57 93/57 93/58 O2 Sat by Pulse 99 99 100 Oximetry O2 Sat by Pulse Oximetry [ Assessment] 03/19/18 03/19/18 03/19/18 03:30 03:45 04:00 Temperature 97.9 F Pulse Rate 102 H 107 H 100 H Pulse Rate [ Anterior Bilateral Throughout] Respiratory 16 24 16 Rate Respiratory Rate [Anterior Bilateral Throughout] Blood Pressure 92/55 116/75 89/58 O2 Sat by Pulse 100 99 100 Oximetry O2 Sat by Pulse Oximetry [ Assessment] 03/19/18 03/19/18 03/19/18 04:15 04:30 04:45 Temperature Pulse Rate 100 H 100 H 100 H Pulse Rate [ Anterior Bilateral Throughout] Respiratory 16 17 15 Rate Respiratory Rate [Anterior Bilateral Throughout] Blood Pressure 99/61 103/66 106/68 O2 Sat by Pulse 100 100 100 Oximetry O2 Sat by Pulse Oximetry [ Assessment] 03/19/18 03/19/18 03/19/18 05:00 05:15 05:30 Temperature Pulse Rate 100 H 101 H 104 H Pulse Rate [ Anterior Bilateral Throughout] Respiratory 12 16 15 Rate Respiratory Rate [Anterior Bilateral Throughout] Blood Pressure 107/69 103/74 103/74 O2 Sat by Pulse 100 100 100 Oximetry O2 Sat by Pulse Oximetry [ Assessment] 03/19/18 03/19/18 03/19/18 05:45 06:00 06:15 Temperature Pulse Rate 112 H 107 H 103 H Pulse Rate [ Anterior Bilateral Throughout] Respiratory 26 H 21 19 Rate Respiratory Rate [Anterior Bilateral Throughout] Blood Pressure 120/79 107/80 99/72 O2 Sat by Pulse 97 98 99 Oximetry O2 Sat by Pulse Oximetry [ Assessment] 03/19/18 03/19/18 03/19/18 06:30 06:45 07:00 Temperature Pulse Rate 110 H 105 H 103 H Pulse Rate [ Anterior Bilateral Throughout] Respiratory 19 15 15 Rate Respiratory Rate [Anterior Bilateral Throughout] Blood Pressure 111/66 111/71 101/65 O2 Sat by Pulse 100 100 100 Oximetry O2 Sat by Pulse Oximetry [ Assessment] 03/19/18 03/19/18 03/19/18 07:15 07:30 07:43 Temperature 97.7 F Pulse Rate 102 H 105 H Pulse Rate [ Anterior Bilateral Throughout] Respiratory 19 22 Rate Respiratory Rate [Anterior Bilateral Throughout] Blood Pressure 111/66 117/75 O2 Sat by Pulse 100 100 Oximetry O2 Sat by Pulse Oximetry [ Assessment] 03/19/18 03/19/18 03/19/18 07:45 08:00 08:06 Temperature Pulse Rate 103 H 102 H Pulse Rate [ 114 H Anterior Bilateral Throughout] Respiratory 21 20 Rate Respiratory 22 Rate [Anterior Bilateral Throughout] Blood Pressure 107/70 110/69 O2 Sat by Pulse 100 100 Oximetry O2 Sat by Pulse 100 Oximetry [ Assessment] 03/19/18 03/19/18 03/19/18 08:15 08:16 08:20 Temperature Pulse Rate 99 H Pulse Rate [ 110 H Anterior Bilateral Throughout] Respiratory 19 Rate Respiratory 22 Rate [Anterior Bilateral Throughout] Blood Pressure 114/67 O2 Sat by Pulse 100 98 Oximetry O2 Sat by Pulse Oximetry [ Assessment] 03/19/18 03/19/18 03/19/18 08:30 08:45 09:00 Temperature Pulse Rate 115 H 105 H 106 H Pulse Rate [ Anterior Bilateral Throughout] Respiratory 19 20 21 Rate Respiratory Rate [Anterior Bilateral Throughout] Blood Pressure 114/67 111/70 110/71 O2 Sat by Pulse 98 100 99 Oximetry O2 Sat by Pulse Oximetry [ Assessment] 03/19/18 03/19/18 03/19/18 09:15 09:30 09:45 Temperature Pulse Rate 106 H 104 H 107 H Pulse Rate [ Anterior Bilateral Throughout] Respiratory 18 19 27 H Rate Respiratory Rate [Anterior Bilateral Throughout] Blood Pressure 115/72 111/70 124/82 O2 Sat by Pulse 100 100 100 Oximetry O2 Sat by Pulse Oximetry [ Assessment] 03/19/18 03/19/18 03/19/18 10:00 10:15 10:30 Temperature Pulse Rate 103 H 103 H 109 H Pulse Rate [ Anterior Bilateral Throughout] Respiratory 20 21 15 Rate Respiratory Rate [Anterior Bilateral Throughout] Blood Pressure 102/64 109/72 109/72 O2 Sat by Pulse 100 100 100 Oximetry O2 Sat by Pulse Oximetry [ Assessment] 03/19/18 03/19/18 03/19/18 10:45 11:00 11:15 Temperature Pulse Rate 103 H 110 H 104 H Pulse Rate [ Anterior Bilateral Throughout] Respiratory 22 17 20 Rate Respiratory Rate [Anterior Bilateral Throughout] Blood Pressure 98/64 98/64 97/63 O2 Sat by Pulse 100 100 100 Oximetry O2 Sat by Pulse Oximetry [ Assessment] 03/19/18 03/19/18 03/19/18 11:30 11:45 12:00 Temperature 99.1 F Pulse Rate 101 H 100 H 97 H Pulse Rate [ Anterior Bilateral Throughout] Respiratory 21 14 21 Rate Respiratory Rate [Anterior Bilateral Throughout] Blood Pressure 98/65 86/55 96/57 O2 Sat by Pulse 99 98 99 Oximetry O2 Sat by Pulse Oximetry [ Assessment] 03/19/18 03/19/18 03/19/18 12:15 12:30 12:45 Temperature Pulse Rate 95 H 96 H 98 H Pulse Rate [ Anterior Bilateral Throughout] Respiratory 18 20 23 Rate Respiratory Rate [Anterior Bilateral Throughout] Blood Pressure 94/58 95/65 109/65 O2 Sat by Pulse 99 98 98 Oximetry O2 Sat by Pulse Oximetry [ Assessment] 03/19/18 03/19/18 03/19/18 12:58 13:00 13:15 Temperature Pulse Rate 93 H 92 H 95 H Pulse Rate [ Anterior Bilateral Throughout] Respiratory 21 21 Rate Respiratory Rate [Anterior Bilateral Throughout] Blood Pressure 109/65 105/69 108/70 O2 Sat by Pulse 98 98 98 Oximetry O2 Sat by Pulse Oximetry [ Assessment] Constitutional: appears uncomfortable, other (elderly looking AAM, normocephalic and atraumatic on MVS with increased respiratory effort) Eyes: non-icteric ENT: oropharynx moist, other (s/p tracheostomy) Neck: supple, no lymphadenopathy, no JVD, other (no thyromegaly) Effort: mildly labored Ascultation: Right: diminished breath sounds (base), Bilateral: rhonchi Percussion: Right: dull (base), Bilateral: not dull Cardiovascular: irregular rhythm, other (No R/M, S1,S2) Gastrointestinal: normoactive bowel sounds, soft, non-tender, non-distended, other (+ PEG; No HSM, scrotal edema) Integumentary: other (poor turgor) Extremities: no cyanosis, pulses normal, no ischemia or petechiae, anasarca Neurologic: pupils equal and round, unable to assess Psychiatric: other (unable to assess re: encephalopathy) CBC and BMP: 03/20/18 05:45 03/20/18 05:45 ABG, PT/INR, D-dimer: ABG POC ABG pH 7.423 (7.35-7.45) 03/19/18 11:11 POC ABG pCO2 39.0 (35-45) 03/19/18 11:11 POC ABG pO2 70 (80-105) L 03/19/18 11:11 POC ABG HCO3 25.5 03/19/18 11:11 POC ABG Total CO2 27 03/19/18 11:11 POC ABG O2 Sat 94 03/19/18 11:11 PT/INR, D-dimer PT 21.5 Sec. (12.2-14.9) H 02/26/18 20:50 INR 1.75 (0.87-1.13) H 02/26/18 20:50 Abnormal lab findings: Abnormal Labs 02/25/18 02/25/18 02/25/18 23:15 23:15 23:15 WBC 12.3 H RBC 3.56 L Hgb 10.2 L Hct 33.7 L MCV 95 H MCHC 30 L RDW 17.7 H Plt Count Lymph % (Auto) [place] % (Auto) Lymph # [place] # Seg Neutrophils % Seg Neuts % (Manual) 35.0 L Lymphocytes % (Manual) 13.0 L Monocytes % (Manual) 8.0 H Nucleated RBC % Seg Neutrophils # Seg Neutrophils # Man Lymphocytes # (Manual) Monocytes # (Manual) 1.0 H PT 20.3 H INR 1.63 H POC ABG pH POC ABG pCO2 POC ABG pO2 Sodium 152 H Potassium Chloride 108.7 H Carbon Dioxide 18 L BUN 136 H Creatinine 5.2 H Glucose POC Glucose Lactic Acid Calcium 8.0 L Phosphorus Magnesium Total Bilirubin 4.50 H Direct Bilirubin AST 83 H C-Reactive Protein Total Protein Albumin 2.7 L Urine Creatinine Ur Creatinine 24 Hour Crossmatch 02/25/18 02/25/18 02/26/18 23:15 23:30 03:06 WBC RBC Hgb Hct MCV MCHC RDW Plt Count Lymph % (Auto) [place] % (Auto) Lymph # [place] # Seg Neutrophils % Seg Neuts % (Manual) Lymphocytes % (Manual) Monocytes % (Manual) Nucleated RBC % Seg Neutrophils # Seg Neutrophils # Man Lymphocytes # (Manual) Monocytes # (Manual) PT INR POC ABG pH POC ABG pCO2 25.2 L POC ABG pO2 69 L Sodium Potassium Chloride Carbon Dioxide BUN Creatinine Glucose POC Glucose Lactic Acid 7.00 H* 9.70 H* Calcium Phosphorus Magnesium Total Bilirubin Direct Bilirubin AST C-Reactive Protein Total Protein Albumin Urine Creatinine Ur Creatinine 24 Hour Crossmatch 02/26/18 02/26/18 02/26/18 05:12 05:43 07:39 WBC 23.7 H RBC 3.27 L Hgb 9.3 L Hct 31.1 L MCV 95 H MCHC 30 L RDW 17.4 H Plt Count Lymph % (Auto) [place] % (Auto) Lymph # [place] # Seg Neutrophils % Seg Neuts % (Manual) Lymphocytes % (Manual) 2.0 L Monocytes % (Manual) Nucleated RBC % 1.0 H Seg Neutrophils # Seg Neutrophils # Man 16.1 H Lymphocytes # (Manual) 0.5 L Monocytes # (Manual) 1.2 H PT INR POC ABG pH POC ABG pCO2 19.5 L POC ABG pO2 72 L Sodium Potassium Chloride Carbon Dioxide BUN Creatinine Glucose POC Glucose Lactic Acid 8.80 H* Calcium Phosphorus Magnesium Total Bilirubin Direct Bilirubin AST C-Reactive Protein Total Protein Albumin Urine Creatinine Ur Creatinine 24 Hour Crossmatch 02/26/18 02/26/18 02/26/18 07:39 12:06 13:08 WBC RBC Hgb Hct MCV MCHC RDW Plt Count Lymph % (Auto) [place] % (Auto) Lymph # [place] # Seg Neutrophils % Seg Neuts % (Manual) Lymphocytes % (Manual) Monocytes % (Manual) Nucleated RBC % Seg Neutrophils # Seg Neutrophils # Man Lymphocytes # (Manual) Monocytes # (Manual) PT INR POC ABG pH POC ABG pCO2 27.8 L POC ABG pO2 168 H Sodium 155 H Potassium Chloride 114.2 H Carbon Dioxide 14 L BUN 120 H Creatinine 4.6 H Glucose 108 H POC Glucose Lactic Acid Calcium 7.7 L Phosphorus Magnesium Total Bilirubin 4.50 H Direct Bilirubin AST 105 H C-Reactive Protein Total Protein Albumin 2.4 L Urine Creatinine 38.6 H Ur Creatinine 24 Hour Crossmatch 02/26/18 02/26/18 02/26/18 18:41 20:50 20:50 WBC RBC Hgb Hct MCV MCHC RDW Plt Count Lymph % (Auto) [place] % (Auto) Lymph # [place] # Seg Neutrophils % Seg Neuts % (Manual) Lymphocytes % (Manual) Monocytes % (Manual) Nucleated RBC % Seg Neutrophils # Seg Neutrophils # Man Lymphocytes # (Manual) Monocytes # (Manual) PT 21.5 H INR 1.75 H POC ABG pH POC ABG pCO2 POC ABG pO2 Sodium Potassium Chloride Carbon Dioxide BUN Creatinine Glucose POC Glucose 135 H Lactic Acid Calcium Phosphorus Magnesium Total Bilirubin Direct Bilirubin AST C-Reactive Protein 33.90 H Total Protein Albumin Urine Creatinine Ur Creatinine 24 Hour Crossmatch 02/27/18 02/27/18 02/27/18 03:39 04:56 04:56 WBC 20.1 H RBC 2.92 L Hgb 8.4 L Hct 27.5 L MCV MCHC 31 L RDW 17.1 H Plt Count Lymph % (Auto) [place] % (Auto) Lymph # [place] # Seg Neutrophils % Seg Neuts % (Manual) 92.0 H Lymphocytes % (Manual) 3.0 L Monocytes % (Manual) Nucleated RBC % Seg Neutrophils # Seg Neutrophils # Man 18.5 H Lymphocytes # (Manual) 0.6 L Monocytes # (Manual) PT INR POC ABG pH 7.453 H POC ABG pCO2 27.2 L POC ABG pO2 Sodium 149 H Potassium Chloride 113.1 H Carbon Dioxide 18 L BUN 103 H Creatinine 3.8 H Glucose 120 H POC Glucose Lactic Acid Calcium 7.8 L Phosphorus Magnesium Total Bilirubin Direct Bilirubin AST C-Reactive Protein Total Protein Albumin Urine Creatinine Ur Creatinine 24 Hour Crossmatch 02/27/18 02/27/18 02/27/18 12:37 12:45 17:51 WBC RBC Hgb Hct MCV MCHC RDW Plt Count Lymph % (Auto) [place] % (Auto) Lymph # [place] # Seg Neutrophils % Seg Neuts % (Manual) Lymphocytes % (Manual) Monocytes % (Manual) Nucleated RBC % Seg Neutrophils # Seg Neutrophils # Man Lymphocytes # (Manual) Monocytes # (Manual) PT INR POC ABG pH POC ABG pCO2 POC ABG pO2 Sodium Potassium Chloride Carbon Dioxide BUN Creatinine Glucose POC Glucose 169 H 133 H Lactic Acid 2.90 H* Calcium Phosphorus Magnesium Total Bilirubin Direct Bilirubin AST C-Reactive Protein Total Protein Albumin Urine Creatinine Ur Creatinine 24 Hour Crossmatch 02/28/18 02/28/18 02/28/18 00:23 05:00 05:02 WBC RBC Hgb Hct MCV MCHC RDW Plt Count Lymph % (Auto) [place] % (Auto) Lymph # [place] # Seg Neutrophils % Seg Neuts % (Manual) Lymphocytes % (Manual) Monocytes % (Manual) Nucleated RBC % Seg Neutrophils # Seg Neutrophils # Man Lymphocytes # (Manual) Monocytes # (Manual) PT INR POC ABG pH POC ABG pCO2 POC ABG pO2 Sodium Potassium Chloride Carbon Dioxide BUN Creatinine Glucose POC Glucose 161 H 116 H Lactic Acid 2.70 H* Calcium Phosphorus Magnesium Total Bilirubin Direct Bilirubin AST C-Reactive Protein Total Protein Albumin Urine Creatinine Ur Creatinine 24 Hour Crossmatch 02/28/18 02/28/18 02/28/18 05:28 07:04 09:00 WBC 22.3 H RBC 2.63 L Hgb 7.6 L Hct 24.1 L MCV MCHC 31 L RDW 17.4 H Plt Count Lymph % (Auto) [place] % (Auto) Lymph # [place] # Seg Neutrophils % Seg Neuts % (Manual) 84.0 H Lymphocytes % (Manual) 8.0 L Monocytes % (Manual) Nucleated RBC % Seg Neutrophils # Seg Neutrophils # Man 18.7 H Lymphocytes # (Manual) Monocytes # (Manual) 1.1 H PT INR POC ABG pH 7.477 H POC ABG pCO2 24.6 L POC ABG pO2 57 L Sodium Potassium Chloride Carbon Dioxide BUN Creatinine Glucose POC Glucose Lactic Acid 3.10 H* Calcium Phosphorus Magnesium Total Bilirubin Direct Bilirubin AST C-Reactive Protein Total Protein Albumin Urine Creatinine Ur Creatinine 24 Hour Crossmatch 02/28/18 02/28/18 02/28/18 09:00 11:36 17:10 WBC RBC Hgb Hct MCV MCHC RDW Plt Count Lymph % (Auto) [place] % (Auto) Lymph # [place] # Seg Neutrophils % Seg Neuts % (Manual) Lymphocytes % (Manual) Monocytes % (Manual) Nucleated RBC % Seg Neutrophils # Seg Neutrophils # Man Lymphocytes # (Manual) Monocytes # (Manual) PT INR POC ABG pH POC ABG pCO2 POC ABG pO2 Sodium Potassium 3.3 L 3.5 L Chloride Carbon Dioxide 21 L 19 L BUN 76 H 69 H Creatinine 2.8 H 2.5 H Glucose 104 H 124 H POC Glucose 107 H Lactic Acid Calcium 7.6 L 7.3 L Phosphorus 1.50 L Magnesium Total Bilirubin Direct Bilirubin AST C-Reactive Protein Total Protein Albumin Urine Creatinine Ur Creatinine 24 Hour Crossmatch 02/28/18 02/28/18 03/01/18 17:36 23:40 06:25 WBC RBC Hgb Hct MCV MCHC RDW Plt Count Lymph % (Auto) [place] % (Auto) Lymph # [place] # Seg Neutrophils % Seg Neuts % (Manual) Lymphocytes % (Manual) Monocytes % (Manual) Nucleated RBC % Seg Neutrophils # Seg Neutrophils # Man Lymphocytes # (Manual) Monocytes # (Manual) PT INR POC ABG pH 7.542 H POC ABG pCO2 23.3 L POC ABG pO2 62 L Sodium Potassium Chloride Carbon Dioxide BUN Creatinine Glucose POC Glucose 151 H 111 H Lactic Acid Calcium Phosphorus Magnesium Total Bilirubin Direct Bilirubin AST C-Reactive Protein Total Protein Albumin Urine Creatinine Ur Creatinine 24 Hour Crossmatch 03/01/18 03/01/18 03/02/18 10:00 12:12 05:21 WBC RBC Hgb Hct MCV MCHC RDW Plt Count Lymph % (Auto) [place] % (Auto) Lymph # [place] # Seg Neutrophils % Seg Neuts % (Manual) Lymphocytes % (Manual) Monocytes % (Manual) Nucleated RBC % Seg Neutrophils # Seg Neutrophils # Man Lymphocytes # (Manual) Monocytes # (Manual) PT INR POC ABG pH 7.473 H POC ABG pCO2 21.5 L POC ABG pO2 79 L Sodium Potassium 3.5 L Chloride Carbon Dioxide 18 L BUN 66 H Creatinine 2.8 H Glucose 103 H POC Glucose 176 H Lactic Acid Calcium 7.5 L Phosphorus Magnesium Total Bilirubin Direct Bilirubin AST C-Reactive Protein Total Protein Albumin Urine Creatinine Ur Creatinine 24 Hour Crossmatch 03/02/18 03/02/18 03/02/18 06:00 06:00 11:47 WBC 18.2 H RBC 2.43 L Hgb 7.2 L Hct 22.6 L MCV MCHC RDW 17.6 H Plt Count Lymph % (Auto) [place] % (Auto) Lymph # [place] # Seg Neutrophils % Seg Neuts % (Manual) Lymphocytes % (Manual) Monocytes % (Manual) Nucleated RBC % Seg Neutrophils # Seg Neutrophils # Man Lymphocytes # (Manual) Monocytes # (Manual) PT INR POC ABG pH POC ABG pCO2 POC ABG pO2 Sodium Potassium Chloride Carbon Dioxide 17 L BUN 68 H Creatinine 3.1 H Glucose 106 H POC Glucose 136 H Lactic Acid Calcium 7.2 L Phosphorus Magnesium Total Bilirubin Direct Bilirubin AST C-Reactive Protein Total Protein Albumin Urine Creatinine Ur Creatinine 24 Hour Crossmatch 03/02/18 03/03/18 03/03/18 17:35 00:54 03:38 WBC RBC Hgb Hct MCV MCHC RDW Plt Count Lymph % (Auto) [place] % (Auto) Lymph # [place] # Seg Neutrophils % Seg Neuts % (Manual) Lymphocytes % (Manual) Monocytes % (Manual) Nucleated RBC % Seg Neutrophils # Seg Neutrophils # Man Lymphocytes # (Manual) Monocytes # (Manual) PT INR POC ABG pH 7.451 H POC ABG pCO2 20.5 L POC ABG pO2 Sodium Potassium Chloride Carbon Dioxide BUN Creatinine Glucose POC Glucose 109 H 131 H Lactic Acid Calcium Phosphorus Magnesium Total Bilirubin Direct Bilirubin AST C-Reactive Protein Total Protein Albumin Urine Creatinine Ur Creatinine 24 Hour Crossmatch 03/03/18 03/03/18 03/03/18 04:30 06:15 06:15 WBC 21.1 H RBC 2.20 L Hgb 6.3 L Hct 20.8 L MCV 95 H MCHC 30 L RDW 17.8 H Plt Count Lymph % (Auto) [place] % (Auto) Lymph # [place] # Seg Neutrophils % Seg Neuts % (Manual) 71.0 H Lymphocytes % (Manual) 8.0 L Monocytes % (Manual) Nucleated RBC % Seg Neutrophils # Seg Neutrophils # Man 15.0 H Lymphocytes # (Manual) Monocytes # (Manual) 1.3 H PT INR POC ABG pH POC ABG pCO2 POC ABG pO2 Sodium 130 L D Potassium Chloride 96.4 L Carbon Dioxide 14 L BUN 69 H Creatinine 3.1 H Glucose POC Glucose Lactic Acid Calcium 7.0 L Phosphorus 5.10 H Magnesium Total Bilirubin Direct Bilirubin AST C-Reactive Protein Total Protein Albumin Urine Creatinine Ur Creatinine 24 Hour Crossmatch 03/03/18 03/03/1803/03/18 08:37 09:38 12:13 WBC RBC Hgb Hct MCV MCHC RDW Plt Count Lymph % (Auto) [place] % (Auto) Lymph # [place] # Seg Neutrophils % Seg Neuts % (Manual) Lymphocytes % (Manual) Monocytes % (Manual) Nucleated RBC % Seg Neutrophils # Seg Neutrophils # Man Lymphocytes # (Manual) Monocytes # (Manual) PT INR POC ABG pH POC ABG pCO2 23.8 L POC ABG pO2 156 H Sodium Potassium Chloride Carbon Dioxide BUN Creatinine Glucose POC Glucose 119 H Lactic Acid Calcium Phosphorus Magnesium Total Bilirubin Direct Bilirubin AST C-Reactive Protein Total Protein Albumin Urine Creatinine Ur Creatinine 24 Hour Crossmatch See Detail 03/03/18 03/03/18 03/04/18 12:37 18:05 00:59 WBC RBC Hgb Hct MCV MCHC RDW Plt Count Lymph % (Auto) [place] % (Auto) Lymph # [place] # Seg Neutrophils % Seg Neuts % (Manual) Lymphocytes % (Manual) Monocytes % (Manual) Nucleated RBC % Seg Neutrophils # Seg Neutrophils # Man Lymphocytes # (Manual) Monocytes # (Manual) PT INR POC ABG pH POC ABG pCO2 POC ABG pO2 Sodium Potassium Chloride Carbon Dioxide BUN Creatinine Glucose POC Glucose 154 H 159 H Lactic Acid Calcium Phosphorus Magnesium 1.40 L Total Bilirubin Direct Bilirubin AST C-Reactive Protein Total Protein Albumin Urine Creatinine Ur Creatinine 24 Hour Crossmatch 03/04/18 03/04/18 03/04/18 04:27 05:30 05:30 WBC 22.6 H RBC 2.46 L Hgb 7.1 L Hct 21.7 L MCV MCHC RDW 17.2 H Plt Count Lymph % (Auto) [place] % (Auto) Lymph # [place] # Seg Neutrophils % Seg Neuts % (Manual) 84.0 H Lymphocytes % (Manual) 5.0 L Monocytes % (Manual) Nucleated RBC % Seg Neutrophils # Seg Neutrophils # Man 19.0 H Lymphocytes # (Manual) 1.1 L Monocytes # (Manual) PT INR POC ABG pH 7.486 H POC ABG pCO2 24.8 L POC ABG pO2 Sodium 135 L Potassium Chloride 96.2 L Carbon Dioxide 19 L BUN 69 H Creatinine 3.1 H Glucose 121 H POC Glucose Lactic Acid Calcium 7.1 L Phosphorus Magnesium Total Bilirubin Direct Bilirubin AST C-Reactive Protein 19.80 H Total Protein Albumin Urine Creatinine Ur Creatinine 24 Hour Crossmatch 03/04/18 03/04/18 03/04/18 05:38 11:47 17:53 WBC RBC Hgb Hct MCV MCHC RDW Plt Count Lymph % (Auto) [place] % (Auto) Lymph # [place] # Seg Neutrophils % Seg Neuts % (Manual) Lymphocytes % (Manual) Monocytes % (Manual) Nucleated RBC % Seg Neutrophils # Seg Neutrophils # Man Lymphocytes # (Manual) Monocytes # (Manual) PT INR POC ABG pH POC ABG pCO2 POC ABG pO2 Sodium Potassium Chloride Carbon Dioxide BUN Creatinine Glucose POC Glucose 134 H 109 H 113 H Lactic Acid Calcium Phosphorus Magnesium Total Bilirubin Direct Bilirubin AST C-Reactive Protein Total Protein Albumin Urine Creatinine Ur Creatinine 24 Hour Crossmatch 03/05/18 03/05/18 03/05/18 00:22 05:15 05:15 WBC 24.3 H RBC 2.29 L Hgb 6.8 L Hct 20.3 L MCV MCHC RDW 16.7 H Plt Count Lymph % (Auto) [place] % (Auto) Lymph # [place] # Seg Neutrophils % Seg Neuts % (Manual) 88.0 H Lymphocytes % (Manual) 3.0 L Monocytes % (Manual) Nucleated RBC % Seg Neutrophils # Seg Neutrophils # Man 21.4 H Lymphocytes # (Manual) 0.7 L Monocytes # (Manual) PT INR POC ABG pH POC ABG pCO2 POC ABG pO2 Sodium 132 L Potassium Chloride 91.2 L Carbon Dioxide BUN 69 H Creatinine 3.3 H Glucose POC Glucose 113 H Lactic Acid Calcium 6.9 L Phosphorus Magnesium Total Bilirubin Direct Bilirubin AST C-Reactive Protein Total Protein Albumin Urine Creatinine Ur Creatinine 24 Hour Crossmatch 03/05/18 03/05/18 03/05/18 05:36 11:51 16:00 WBC RBC Hgb Hct MCV MCHC RDW Plt Count Lymph % (Auto) [place] % (Auto) Lymph # [place] # Seg Neutrophils % Seg Neuts % (Manual) Lymphocytes % (Manual) Monocytes % (Manual) Nucleated RBC % Seg Neutrophils # Seg Neutrophils # Man Lymphocytes # (Manual) Monocytes # (Manual) PT INR POC ABG pH 7.519 H POC ABG pCO2 27.0 L POC ABG pO2 68 L Sodium Potassium Chloride Carbon Dioxide BUN Creatinine Glucose POC Glucose 118 H 131 H Lactic Acid Calcium Phosphorus Magnesium Total Bilirubin Direct Bilirubin AST C-Reactive Protein Total Protein Albumin Urine Creatinine Ur Creatinine 24 Hour Crossmatch 03/06/18 03/06/1803/06/18 00:00 01:27 04:44 WBC 24.5 H RBC 2.90 L Hgb 8.5 L Hct 25.8 L MCV MCHC RDW 16.3 H Plt Count Lymph % (Auto) [place] % (Auto) Lymph # [place] # Seg Neutrophils % Seg Neuts % (Manual) 96.0 H Lymphocytes % (Manual) 1.5 L Monocytes % (Manual) Nucleated RBC % 1.0 H Seg Neutrophils # Seg Neutrophils # Man 23.5 H Lymphocytes # (Manual) 0.4 L Monocytes # (Manual) PT INR POC ABG pH POC ABG pCO2 POC ABG pO2 Sodium Potassium Chloride 92.9 L Carbon Dioxide BUN 67 H Creatinine 3.4 H Glucose POC Glucose 127 H Lactic Acid Calcium 7.2 L Phosphorus Magnesium Total Bilirubin Direct Bilirubin AST C-Reactive Protein Total Protein Albumin Urine Creatinine Ur Creatinine 24 Hour Crossmatch 03/06/18 03/06/18 03/06/18 04:54 05:54 12:08 WBC RBC Hgb Hct MCV MCHC RDW Plt Count Lymph % (Auto) [place] % (Auto) Lymph # [place] # Seg Neutrophils % Seg Neuts % (Manual) Lymphocytes % (Manual) Monocytes % (Manual) Nucleated RBC % Seg Neutrophils # Seg Neutrophils # Man Lymphocytes # (Manual) Monocytes # (Manual) PT INR POC ABG pH 7.551 H POC ABG pCO2 29.5 L POC ABG pO2 57 L Sodium Potassium Chloride Carbon Dioxide BUN Creatinine Glucose POC Glucose 108 H 123 H Lactic Acid Calcium Phosphorus Magnesium Total Bilirubin Direct Bilirubin AST C-Reactive Protein Total Protein Albumin Urine Creatinine Ur Creatinine 24 Hour Crossmatch 03/06/18 03/07/18 03/07/18 21:16 05:00 05:00 WBC 17.5 H RBC 2.41 L Hgb 7.3 L Hct 21.5 L MCV MCHC RDW 16.6 H Plt Count Lymph % (Auto) [place] % (Auto) Lymph # [place] # Seg Neutrophils % Seg Neuts % (Manual) 97.0 H Lymphocytes % (Manual) 1.0 L Monocytes % (Manual) Nucleated RBC % Seg Neutrophils # Seg Neutrophils # Man 17.0 H Lymphocytes # (Manual) 0.2 L Monocytes # (Manual) PT INR POC ABG pH 7.639 H POC ABG pCO2 25.3 L POC ABG pO2 Sodium Potassium Chloride 90.6 L Carbon Dioxide BUN 65 H Creatinine 3.4 H Glucose POC Glucose Lactic Acid Calcium 7.3 L Phosphorus Magnesium Total Bilirubin Direct Bilirubin AST C-Reactive Protein Total Protein Albumin Urine Creatinine Ur Creatinine 24 Hour Crossmatch 03/07/18 03/08/18 03/08/18 06:32 04:30 11:54 WBC 13.9 H RBC 2.36 L Hgb 7.1 L Hct 21.2 L MCV MCHC RDW 16.5 H Plt Count Lymph % (Auto) [place] % (Auto) Lymph # [place] # Seg Neutrophils % Seg Neuts % (Manual) 91.0 H Lymphocytes % (Manual) 2.0 L Monocytes % (Manual) Nucleated RBC % Seg Neutrophils # Seg Neutrophils # Man 12.6 H Lymphocytes # (Manual) 0.3 L Monocytes # (Manual) PT INR POC ABG pH 7.498 H POC ABG pCO2 30.2 L POC ABG pO2 44 L Sodium Potassium Chloride Carbon Dioxide BUN Creatinine Glucose POC Glucose 121 H Lactic Acid Calcium Phosphorus Magnesium Total Bilirubin Direct Bilirubin AST C-Reactive Protein Total Protein Albumin Urine Creatinine Ur Creatinine 24 Hour Crossmatch 03/08/18 03/08/18 03/09/18 18:29 23:52 05:45 WBC 12.9 H RBC 2.31 L Hgb 6.9 L Hct 20.9 L MCV MCHC RDW 16.7 H Plt Count Lymph % (Auto) 5.5 L [place] % (Auto) Lymph # 0.7 L [place] # Seg Neutrophils % 89.2 H Seg Neuts % (Manual) Lymphocytes % (Manual) Monocytes % (Manual) Nucleated RBC % Seg Neutrophils # 11.5 H Seg Neutrophils # Man Lymphocytes # (Manual) Monocytes # (Manual) PT INR POC ABG pH POC ABG pCO2 POC ABG pO2 Sodium Potassium Chloride Carbon Dioxide BUN Creatinine Glucose POC Glucose 106 H 115 H Lactic Acid Calcium Phosphorus Magnesium Total Bilirubin Direct Bilirubin AST C-Reactive Protein Total Protein Albumin Urine Creatinine Ur Creatinine 24 Hour Crossmatch 03/09/18 03/09/18 03/09/18 06:13 12:00 12:20 WBC RBC Hgb Hct MCV MCHC RDW Plt Count Lymph % (Auto) [place] % (Auto) Lymph # [place] # Seg Neutrophils % Seg Neuts % (Manual) Lymphocytes % (Manual) Monocytes % (Manual) Nucleated RBC % Seg Neutrophils # Seg Neutrophils # Man Lymphocytes # (Manual) Monocytes # (Manual) PT INR POC ABG pH POC ABG pCO2 POC ABG pO2 Sodium Potassium 3.3 L Chloride 82.2 L Carbon Dioxide 19 L D BUN 62 H Creatinine 3.0 H Glucose POC Glucose 122 H 113 H Lactic Acid Calcium 6.1 L D Phosphorus Magnesium Total Bilirubin Direct Bilirubin AST C-Reactive Protein Total Protein Albumin Urine Creatinine Ur Creatinine 24 Hour Crossmatch 03/09/18 03/09/18 03/10/18 13:30 17:38 06:55 WBC RBC 1.94 L Hgb 6.0 L Hct 17.8 L* MCV MCHC RDW 16.6 H Plt Count Lymph % (Auto) 4.6 L [place] % (Auto) Lymph # 0.5 L [place] # Seg Neutrophils % 90.0 H Seg Neuts % (Manual) Lymphocytes % (Manual) Monocytes % (Manual) Nucleated RBC % Seg Neutrophils # 9.1 H Seg Neutrophils # Man Lymphocytes # (Manual) Monocytes # (Manual) PT INR POC ABG pH POC ABG pCO2 POC ABG pO2 Sodium Potassium Chloride Carbon Dioxide BUN Creatinine Glucose POC Glucose Lactic Acid Calcium Phosphorus Magnesium Total Bilirubin Direct Bilirubin AST C-Reactive Protein Total Protein Albumin Urine Creatinine 69.2 H 69.2 H Ur Creatinine 24 Hour 0.3 L Crossmatch 03/10/18 03/10/18 03/10/18 06:55 09:00 12:14 WBC RBC Hgb Hct MCV MCHC RDW Plt Count Lymph % (Auto) [place] % (Auto) Lymph # [place] # Seg Neutrophils % Seg Neuts % (Manual) Lymphocytes % (Manual) Monocytes % (Manual) Nucleated RBC % Seg Neutrophils # Seg Neutrophils # Man Lymphocytes # (Manual) Monocytes # (Manual) PT INR POC ABG pH POC ABG pCO2 POC ABG pO2 Sodium 135 L Potassium Chloride 90.2 L Carbon Dioxide BUN 82 H Creatinine 3.9 H Glucose POC Glucose 107 H Lactic Acid Calcium 7.6 L D Phosphorus Magnesium Total Bilirubin Direct Bilirubin AST C-Reactive Protein Total Protein Albumin Urine Creatinine Ur Creatinine 24 Hour Crossmatch See Detail 03/10/18 03/10/18 03/11/18 18:14 20:02 14:25 WBC RBC Hgb 7.7 L Hct 23.3 L MCV MCHC RDW Plt Count Lymph % (Auto) [place] % (Auto) Lymph # [place] # Seg Neutrophils % Seg Neuts % (Manual) Lymphocytes % (Manual) Monocytes % (Manual) Nucleated RBC % Seg Neutrophils # Seg Neutrophils # Man Lymphocytes # (Manual) Monocytes # (Manual) PT INR POC ABG pH POC ABG pCO2 POC ABG pO2 Sodium Potassium Chloride 94.6 L Carbon Dioxide BUN 69 H Creatinine 3.7 H Glucose POC Glucose 126 H Lactic Acid Calcium 8.0 L Phosphorus Magnesium Total Bilirubin Direct Bilirubin AST C-Reactive Protein Total Protein Albumin Urine Creatinine Ur Creatinine 24 Hour Crossmatch 03/12/18 03/12/18 03/12/18 04:19 05:45 05:45 WBC RBC 2.44 L Hgb 7.4 L Hct 22.6 L MCV MCHC RDW 16.1 H Plt Count Lymph % (Auto) [place] % (Auto) Lymph # [place] # Seg Neutrophils % Seg Neuts % (Manual) Lymphocytes % (Manual) Monocytes % (Manual) Nucleated RBC % Seg Neutrophils # Seg Neutrophils # Man Lymphocytes # (Manual) Monocytes # (Manual) PT INR POC ABG pH POC ABG pCO2 POC ABG pO2 71 L Sodium Potassium Chloride 95.1 L Carbon Dioxide BUN 72 H Creatinine 4.0 H Glucose POC Glucose Lactic Acid Calcium 7.9 L Phosphorus Magnesium Total Bilirubin Direct Bilirubin AST C-Reactive Protein Total Protein Albumin Urine Creatinine Ur Creatinine 24 Hour Crossmatch 03/13/18 03/13/18 03/13/18 06:30 12:38 18:32 WBC RBC Hgb Hct MCV MCHC RDW Plt Count Lymph % (Auto) [place] % (Auto) Lymph # [place] # Seg Neutrophils % Seg Neuts % (Manual) Lymphocytes % (Manual) Monocytes % (Manual) Nucleated RBC % Seg Neutrophils # Seg Neutrophils # Man Lymphocytes # (Manual) Monocytes # (Manual) PT INR POC ABG pH 7.287 L POC ABG pCO2 54.6 H POC ABG pO2 78 L Sodium 136 L Potassium Chloride 91.8 L Carbon Dioxide BUN 76 H Creatinine 4.1 H Glucose POC Glucose 106 H Lactic Acid Calcium 8.0 L Phosphorus Magnesium Total Bilirubin Direct Bilirubin AST C-Reactive Protein Total Protein Albumin Urine Creatinine Ur Creatinine 24 Hour Crossmatch 03/13/18 03/14/18 03/14/18 23:34 05:30 05:30 WBC RBC Hgb Hct MCV MCHC RDW Plt Count Lymph % (Auto) [place] % (Auto) Lymph # [place] # Seg Neutrophils % Seg Neuts % (Manual) Lymphocytes % (Manual) Monocytes % (Manual) Nucleated RBC % Seg Neutrophils # Seg Neutrophils # Man Lymphocytes # (Manual) Monocytes # (Manual) PT INR POC ABG pH POC ABG pCO2 POC ABG pO2 Sodium 135 L Potassium Chloride 87.4 L Carbon Dioxide BUN 60 H Creatinine 3.7 H Glucose 102 H POC Glucose 111 H Lactic Acid Calcium 7.9 L Phosphorus Magnesium 1.60 L Total Bilirubin Direct Bilirubin AST C-Reactive Protein Total Protein Albumin Urine Creatinine Ur Creatinine 24 Hour Crossmatch 03/14/18 03/14/18 03/14/18 08:30 12:10 13:10 WBC RBC 2.58 L Hgb 7.9 L Hct 24.2 L MCV MCHC RDW 16.0 H Plt Count Lymph % (Auto) [place] % (Auto) Lymph # [place] # Seg Neutrophils % Seg Neuts % (Manual) Lymphocytes % (Manual) Monocytes % (Manual) Nucleated RBC % Seg Neutrophils # Seg Neutrophils # Man Lymphocytes # (Manual) Monocytes # (Manual) PT INR POC ABG pH 7.483 H POC ABG pCO2 30.7 L POC ABG pO2 55 L Sodium Potassium Chloride Carbon Dioxide BUN Creatinine Glucose POC Glucose 118 H Lactic Acid Calcium Phosphorus Magnesium Total Bilirubin Direct Bilirubin AST C-Reactive Protein Total Protein Albumin Urine Creatinine Ur Creatinine 24 Hour Crossmatch 03/14/18 03/15/18 03/15/18 18:05 06:45 06:45 WBC RBC 2.39 L Hgb 7.2 L Hct 22.0 L MCV MCHC RDW 16.2 H Plt Count 130 L Lymph % (Auto) 8.7 L [place] % (Auto) 8.7 H Lymph # 0.8 L [place] # Seg Neutrophils % 81.5 H Seg Neuts % (Manual) Lymphocytes % (Manual) Monocytes % (Manual) Nucleated RBC % Seg Neutrophils # Seg Neutrophils # Man Lymphocytes # (Manual) Monocytes # (Manual) PT INR POC ABG pH POC ABG pCO2 POC ABG pO2 Sodium 133 L Potassium Chloride 90.7 L Carbon Dioxide BUN 64 H Creatinine 4.7 H Glucose 118 H POC Glucose 129 H Lactic Acid Calcium 7.9 L Phosphorus Magnesium Total Bilirubin Direct Bilirubin AST 55 H C-Reactive Protein Total Protein 6.2 L Albumin 2.8 L Urine Creatinine Ur Creatinine 24 Hour Crossmatch 03/15/18 03/15/18 03/15/18 12:22 18:01 Unknown WBC RBC Hgb Hct MCV MCHC RDW Plt Count Lymph % (Auto) [place] % (Auto) Lymph # [place] # Seg Neutrophils % Seg Neuts % (Manual) Lymphocytes % (Manual) Monocytes % (Manual) Nucleated RBC % Seg Neutrophils # Seg Neutrophils # Man Lymphocytes # (Manual) Monocytes # (Manual) PT INR POC ABG pH POC ABG pCO2 POC ABG pO2 Sodium Potassium Chloride Carbon Dioxide BUN Creatinine Glucose POC Glucose 140 H 162 H Lactic Acid 2.60 H* Calcium Phosphorus Magnesium Total Bilirubin Direct Bilirubin AST C-Reactive Protein Total Protein Albumin Urine Creatinine Ur Creatinine 24 Hour Crossmatch 03/16/18 03/16/18 03/16/18 00:13 05:26 05:45 WBC RBC Hgb Hct MCV MCHC RDW Plt Count Lymph % (Auto) [place] % (Auto) Lymph # [place] # Seg Neutrophils % Seg Neuts % (Manual) Lymphocytes % (Manual) Monocytes % (Manual) Nucleated RBC % Seg Neutrophils # Seg Neutrophils # Man Lymphocytes # (Manual) Monocytes # (Manual) PT INR POC ABG pH POC ABG pCO2 POC ABG pO2 Sodium 128 L Potassium Chloride 85.4 L Carbon Dioxide 21 L BUN 65 H Creatinine 4.8 H Glucose 201 H POC Glucose 141 H 162 H Lactic Acid Calcium 8.0 L Phosphorus Magnesium Total Bilirubin Direct Bilirubin AST C-Reactive Protein Total Protein Albumin Urine Creatinine Ur Creatinine 24 Hour Crossmatch 03/16/18 03/16/18 03/16/18 05:45 05:45 12:03 WBC RBC 2.43 L Hgb 7.5 L Hct 22.5 L MCV MCHC RDW 16.3 H Plt Count Lymph % (Auto) [place] % (Auto) Lymph # [place] # Seg Neutrophils % Seg Neuts % (Manual) 89.0 H Lymphocytes % (Manual) 4.0 L Monocytes % (Manual) Nucleated RBC % Seg Neutrophils # Seg Neutrophils # Man 9.2 H Lymphocytes # (Manual) 0.4 L Monocytes # (Manual) PT INR POC ABG pH POC ABG pCO2 POC ABG pO2 Sodium Potassium Chloride Carbon Dioxide BUN Creatinine Glucose POC Glucose 157 H Lactic Acid Calcium Phosphorus Magnesium Total Bilirubin Direct Bilirubin 0.5 H AST 55 H C-Reactive Protein Total Protein Albumin 2.8 L Urine Creatinine Ur Creatinine 24 Hour Crossmatch 03/17/18 03/17/18 03/17/18 00:03 04:40 04:40 WBC RBC 2.42 L Hgb 7.4 L Hct 22.3 L MCV MCHC RDW 16.1 H Plt Count Lymph % (Auto) [place] % (Auto) Lymph # [place] # Seg Neutrophils % Seg Neuts % (Manual) Lymphocytes % (Manual) Monocytes % (Manual) Nucleated RBC % Seg Neutrophils # Seg Neutrophils # Man Lymphocytes # (Manual) Monocytes # (Manual) PT INR POC ABG pH POC ABG pCO2 POC ABG pO2 Sodium 133 L Potassium 3.4 L Chloride 90.3 L Carbon Dioxide BUN 45 H Creatinine 3.6 H Glucose POC Glucose 108 H Lactic Acid Calcium 8.2 L Phosphorus Magnesium Total Bilirubin Direct Bilirubin AST C-Reactive Protein Total Protein Albumin Urine Creatinine Ur Creatinine 24 Hour Crossmatch 03/17/18 03/18/18 03/18/18 18:14 01:16 05:59 WBC RBC Hgb Hct MCV MCHC RDW Plt Count Lymph % (Auto) [place] % (Auto) Lymph # [place] # Seg Neutrophils % Seg Neuts % (Manual) Lymphocytes % (Manual) Monocytes % (Manual) Nucleated RBC % Seg Neutrophils # Seg Neutrophils # Man Lymphocytes # (Manual) Monocytes # (Manual) PT INR POC ABG pH POC ABG pCO2 POC ABG pO2 Sodium Potassium Chloride Carbon Dioxide BUN Creatinine Glucose POC Glucose 113 H 134 H 137 H Lactic Acid Calcium Phosphorus Magnesium Total Bilirubin Direct Bilirubin AST C-Reactive Protein Total Protein Albumin Urine Creatinine Ur Creatinine 24 Hour Crossmatch 03/18/18 03/18/18 03/19/18 11:35 12:43 00:13 WBC RBC Hgb 7.1 L Hct 21.7 L MCV MCHC RDW Plt Count Lymph % (Auto) [place] % (Auto) Lymph # [place] # Seg Neutrophils % Seg Neuts % (Manual) Lymphocytes % (Manual) Monocytes % (Manual) Nucleated RBC % Seg Neutrophils # Seg Neutrophils # Man Lymphocytes # (Manual) Monocytes # (Manual) PT INR POC ABG pH POC ABG pCO2 POC ABG pO2 Sodium Potassium Chloride Carbon Dioxide BUN Creatinine Glucose POC Glucose 124 H 117 H Lactic Acid Calcium Phosphorus Magnesium Total Bilirubin Direct Bilirubin AST C-Reactive Protein Total Protein Albumin Urine Creatinine Ur Creatinine 24 Hour Crossmatch 03/19/18 03/19/18 03/19/18 04:00 05:35 11:11 WBC 15.3 H RBC 2.30 L Hgb 7.0 L Hct 21.3 L MCV MCHC RDW 16.6 H Plt Count Lymph % (Auto) 4.6 L [place] % (Auto) 11.2 H Lymph # 0.7 L [place] # 1.7 H Seg Neutrophils % 83.5 H Seg Neuts % (Manual) Lymphocytes % (Manual) Monocytes % (Manual) Nucleated RBC % Seg Neutrophils # 12.7 H Seg Neutrophils # Man Lymphocytes # (Manual) Monocytes # (Manual) PT INR POC ABG pH POC ABG pCO2 POC ABG pO2 70 L Sodium Potassium Chloride Carbon Dioxide BUN Creatinine Glucose POC Glucose 110 H Lactic Acid Calcium Phosphorus Magnesium Total Bilirubin Direct Bilirubin AST C-Reactive Protein Total Protein Albumin Urine Creatinine Ur Creatinine 24 Hour Crossmatch 03/19/18 03/19/18 11:42 23:40 WBC RBC Hgb Hct MCV MCHC RDW Plt Count Lymph % (Auto) [place] % (Auto) Lymph # [place] # Seg Neutrophils % Seg Neuts % (Manual) Lymphocytes % (Manual) Monocytes % (Manual) Nucleated RBC % Seg Neutrophils # Seg Neutrophils # Man Lymphocytes # (Manual) Monocytes # (Manual) PT INR POC ABG pH POC ABG pCO2 POC ABG pO2 Sodium 132 L Potassium Chloride 91.4 L Carbon Dioxide BUN 36 H Creatinine 3.0 H Glucose POC Glucose 120 H Lactic Acid Calcium 7.9 L Phosphorus Magnesium Total Bilirubin Direct Bilirubin AST C-Reactive Protein Total Protein Albumin Urine Creatinine Ur Creatinine 24 Hour Crossmatch Chest x-ray: pending Allied health notes reviewed: RT
--- NOTE | 2018-03-19 13:30 | Progress Note ---
Assessment and Plan Assessment and plan: 72-year-old male with history of cerebrovascular accident and hemiplegia, Alzheimer's and nonverbal from [facility] was admitted with altered mental state fever and respiratory failure requiring intubation 03/03: Went into cardiopulmonary arrest. s/p CPR per ACLS protocol , encephalopathy 03/05: Pt had recurrent seizure over the night and CT head showed right MCA acute /subacute stroke and calcified meningioma in the left frontal area 03/12: commence on renal replacemtn therapy 03/11 --Acute hypoxic respiratory failure; status post tracheostomy Continue ventilatory support, nebulizers, pulmonary following Possible LTAC placement --Severe sepsis with septic shock;Resolved, --Acute kidney injury; secondary to ATN On hemodialysis, nephrology following, HD per schedule --Metabolic encephalopathy; multifactorial supportive care --Status post cardiac arrest/anoxic encephalopathy Continue supportive care, poor prognosis --Acute/ Subacute right MCA distribution stroke Supportive care --Meningioma left frontal area 2.8 x 2.2cm Prophylactic seizure medications with Keppra --Sacral Pressure ulcer Continue wound care --History of BPH Continue Finasteride --Hyperlipidemia; statin --Anemia of chronic disease; Closely monitor transfuse as needed --DVT prophylaxis; heparin renal dose Poor prognosis --Discharge planning; possible LTAC placement We will be a difficult placement secondary to hemodialysis The high probability of a clinically significant, sudden or life threatening deterioration of the [neurological , renal ,metabolic and PULMONARY] system(s) required my full and direct attention, intervention and personal management. The aggregate critical care time was [32] minutes. This time is in addition to time spent performing reported procedures but includes the following: [X] Data Review and interpretation [X] Patient assessment and monitoring of vital signs [X] Documentation [X] Medication orders and management History Interval history: Patient seen and examined in ICU this morning medical records reviewed Status post tracheostomy, vent dependent New events reported by the nursing Vital signs reviewed Patient is comfortable and sedated Awaiting LTAC placement Hospitalist Physical - Constitutional Vitals: Temp Pulse Resp BP Pulse Ox 99.1 F 95 H 21 108/70 98 03/19/18 12:00 03/19/18 13:15 03/19/18 13:15 03/19/18 13:15 03/19/18 13:15 General appearance: Present: no acute distress, well-nourished, other (s/p tracheostomy) - EENT Eyes: Present: PERRL, EOM intact - Neck Neck: Present: supple, other (tracheostomy) - Respiratory Respiratory effort: normal Respiratory: bilateral: diminished, rhonchi, negative: rales, wheezing - Cardiovascular Rhythm: regular Heart Sounds: Present: S1 & S2 - Extremities Extremities: no ischemia Extremity abnormal: edema - Abdominal General gastrointestinal: soft, non-tender, non-distended, normal bowel sounds - Integumentary Integumentary: Present: clear, warm - Psychiatric Psychiatric: appropriate mood/affect, cooperative - Neurologic Neurologic: CNII-XII intact, moves all extremities Results - Labs CBC & Chem 7: 03/19/18 04:00 03/19/18 23:40 Labs: Laboratory Last Values WBC 15.3 K/mm3 (4.5-11.0) H 03/19/18 04:00 RBC 2.30 M/mm3 (3.65-5.03) L 03/19/18 04:00 Hgb 7.0 gm/dl (11.8-15.2) L 03/19/18 04:00 Hct 21.3 % (35.5-45.6) L 03/19/18 04:00 MCV 93 fl (84-94) 03/19/18 04:00 MCH 30 pg (28-32) 03/19/18 04:00 MCHC 33 % (32-34) 03/19/18 04:00 RDW 16.6 % (13.2-15.2) H 03/19/18 04:00 Plt Count 374 K/mm3 (140-440) 03/19/18 04:00 Lymph % (Auto) 4.6 % (13.4-35.0) L 03/19/18 04:00 [place] % (Auto) 11.2 % (0.0-7.3) H 03/19/18 04:00 Eos % (Auto) 0.5 % (0.0-4.3) 03/19/18 04:00 Baso % (Auto) 0.2 % (0.0-1.8) 03/19/18 04:00 Lymph # 0.7 K/mm3 (1.2-5.4) L 03/19/18 04:00 [place] # 1.7 K/mm3 (0.0-0.8) H 03/19/18 04:00 Eos # 0.1 K/mm3 (0.0-0.4) 03/19/18 04:00 Baso # 0.0 K/mm3 (0.0-0.1) 03/19/18 04:00 Add Manual Diff Complete 03/16/18 05:45 Total Counted 100 03/16/18 05:45 Seg Neutrophils % 83.5 % (40.0-70.0) H 03/19/18 04:00 Seg Neuts % (Manual) 89.0 % (40.0-70.0) H 03/16/18 05:45 Band Neutrophils % 1.0 % 03/16/18 05:45 Lymphocytes % (Manual) 4.0 % (13.4-35.0) L 03/16/18 05:45 Reactive Lymphs % (Man) 0 % 03/16/18 05:45 Monocytes % (Manual) 5.0 % (0.0-7.3) 03/16/18 05:45 Eosinophils % (Manual) 0 % (0.0-4.3) 03/16/18 05:45 Basophils % (Manual) 0 % (0.0-1.8) 03/16/18 05:45 Metamyelocytes % 1.0 % 03/16/18 05:45 Myelocytes % 0 % 03/16/18 05:45 Promyelocytes % 0 % 03/16/18 05:45 Blast Cells % 0 % 03/16/18 05:45 Nucleated RBC % Not Reportable 03/16/18 05:45 Seg Neutrophils # 12.7 K/mm3 (1.8-7.7) H 03/19/18 04:00 Seg Neutrophils # Man 9.2 K/mm3 (1.8-7.7) H 03/16/18 05:45 Band Neutrophils # 0.1 K/mm3 03/16/18 05:45 Lymphocytes # (Manual) 0.4 K/mm3 (1.2-5.4) L 03/16/18 05:45 Abs React Lymphs (Man) 0.0 K/mm3 03/16/18 05:45 Monocytes # (Manual) 0.5 K/mm3 (0.0-0.8) 03/16/18 05:45 Eosinophils # (Manual) 0.0 K/mm3 (0.0-0.4) 03/16/18 05:45 Basophils # (Manual) 0.0 K/mm3 (0.0-0.1) 03/16/18 05:45 Metamyelocytes # 0.1 K/mm3 03/16/18 05:45 Myelocytes # 0.0 K/mm3 03/16/18 05:45 Promyelocytes # 0.0 K/mm3 03/16/18 05:45 Blast Cells # 0.0 K/mm3 03/16/18 05:45 WBC Morphology Not Reportable 03/16/18 05:45 Hypersegmented Neuts Not Reportable 03/16/18 05:45 Hyposegmented Neuts Not Reportable 03/16/18 05:45 Hypogranular Neuts Not Reportable 03/16/18 05:45 Smudge Cells Not Reportable 03/16/18 05:45 Toxic Granulation Not Reportable 03/16/18 05:45 Toxic Vacuolation Not Reportable 03/16/18 05:45 Dohle Bodies Not Reportable 03/16/18 05:45 Pelger-Huet Anomaly Not Reportable 03/16/18 05:45 Erwin Rods Not Reportable 03/16/18 05:45 Platelet Estimate Cons 03/16/18 05:45 Clumped Platelets Not Reportable 03/16/18 05:45 Plt Clumps, EDTA Not Reportable 03/16/18 05:45 Large Platelets Not Reportable 03/16/18 05:45 Giant Platelets Not Reportable 03/16/18 05:45 Platelet Satelliting Not Reportable 03/16/18 05:45 Plt Morphology Comment Not Reportable 03/16/18 05:45 RBC Morphology Not Reportable 03/16/18 05:45 Dimorphic RBCs Not Reportable 03/16/18 05:45 Polychromasia Not Reportable 03/16/18 05:45 Hypochromasia 1+ 03/16/18 05:45 Poikilocytosis Not Reportable 03/16/18 05:45 Anisocytosis 1+ 03/16/18 05:45 Microcytosis Not Reportable 03/16/18 05:45 Macrocytosis Not Reportable 03/16/18 05:45 Spherocytes Not Reportable 03/16/18 05:45 Pappenheimer Bodies Not Reportable 03/16/18 05:45 Sickle Cells Not Reportable 03/16/18 05:45 Target Cells Not Reportable 03/16/18 05:45 Tear Drop Cells Not Reportable 03/16/18 05:45 Ovalocytes Not Reportable 03/16/18 05:45 Stomatocytes Few 02/28/18 09:00 Helmet Cells Not Reportable 03/16/18 05:45 [place] Bodies Not Reportable 03/16/18 05:45 [place] Rings Not Reportable 03/16/18 05:45 [place] Cells Not Reportable 03/16/18 05:45 Bite Cells Not Reportable 03/16/18 05:45 Crenated Cell Not Reportable 03/16/18 05:45 Elliptocytes Not Reportable 03/16/18 05:45 Acanthocytes (Spur) Not Reportable 03/16/18 05:45 Rouleaux Not Reportable 03/16/18 05:45 Hemoglobin C Crystals Not Reportable 03/16/18 05:45 Schistocytes Not Reportable 03/16/18 05:45 Malaria parasites Not Reportable 03/16/18 05:45 Aric Bodies Not Reportable 03/16/18 05:45 Hem Pathologist Commnt No 03/16/18 05:45 PT 21.5 Sec. (12.2-14.9) H 02/26/18 20:50 INR 1.75 (0.87-1.13) H 02/26/18 20:50 POC ABG pH 7.423 (7.35-7.45) 03/19/18 11:11 POC ABG pCO2 39.0 (35-45) 03/19/18 11:11 POC ABG pO2 70 (80-105) L 03/19/18 11:11 POC ABG HCO3 25.5 03/19/18 11:11 POC ABG Total CO2 27 03/19/18 11:11 POC ABG O2 Sat 94 03/19/18 11:11 POC ABG Base Excess 1 03/19/18 11:11 VBG pH 7.406 (7.320-7.420) 02/25/18 23:15 FiO2 50 % 03/19/18 11:11 Sodium 132 mmol/L (137-145) L 03/19/18 23:40 Potassium 4.0 mmol/L (3.6-5.0) 03/19/18 23:40 Chloride 91.4 mmol/L (98-107) L 03/19/18 23:40 Carbon Dioxide 25 mmol/L (22-30) 03/19/18 23:40 Anion Gap 20 mmol/L 03/19/18 23:40 BUN 36 mg/dL (9-20) H 03/19/18 23:40 Creatinine 3.0 mg/dL (0.8-1.5) H 03/19/18 23:40 Estimated GFR 25 ml/min 03/19/18 23:40 BUN/Creatinine Ratio 12 % 03/19/18 23:40 Glucose 94 mg/dL (75-100) 03/19/18 23:40 POC Glucose 120 (70-105) H 03/19/18 11:42 Lactic Acid 2.60 mmol/L (0.7-2.0) H* 03/15/18 Unknown Calcium 7.9 mg/dL (8.4-10.2) L 03/19/18 23:40 Phosphorus 5.10 mg/dL (2.5-4.5) H 03/03/18 04:30 Magnesium 1.60 mg/dL (1.7-2.3) L 03/14/18 05:30 Total Bilirubin 0.80 mg/dL (0.1-1.2) 03/16/18 05:45 Direct Bilirubin 0.5 mg/dL (0-0.2) H 03/16/18 05:45 Indirect Bilirubin 0.3 mg/dL 03/16/18 05:45 AST 55 units/L (5-40) H 03/16/18 05:45 ALT 19 units/L (7-56) 03/16/18 05:45 Alkaline Phosphatase 112 units/L (35-129) 03/16/18 05:45 C-Reactive Protein 19.80 mg/dL (0.00-1.30) H 03/04/18 05:30 Total Protein 6.3 g/dL (6.3-8.2) 03/16/18 05:45 Albumin 2.8 g/dL (3.9-5) L 03/16/18 05:45 Albumin/Globulin Ratio 0.8 % 03/16/18 05:45 Lipase 35 units/L (13-60) 02/26/18 02:58 TSH 2.670 mlU/mL (0.270-4.200) 02/26/18 00:10 Free T4 1.26 ng/dL (0.76-1.46) 02/26/18 00:10 Urine Color [place] (Yellow) 02/26/18 00:32 Urine Turbidity Hazy (Clear) 02/26/18 00:32 Urine pH 5.0 (5.0-7.0) 02/26/18 00:32 Ur Specific [place] 1.015 (1.003-1.030) 02/26/18 00:32 Urine Protein <15 mg/dl mg/dL (Negative) 02/26/18 00:32 Urine Glucose (UA) Neg mg/dL (Negative) 02/26/18 00:32 Urine Ketones Neg mg/dL (Negative) 02/26/18 00:32 Urine Blood Neg (Negative) 02/26/18 00:32 Urine Nitrite Neg (Negative) 02/26/18 00:32 Urine Bilirubin Neg (Negative) 02/26/18 00:32 Urine Urobilinogen 4.0 mg/dL (<2.0) 02/26/18 00:32 Ur Leukocyte Esterase Neg (Negative) 02/26/18 00:32 Urine WBC (Auto) 1.0 /HPF (0.0-6.0) 02/26/18 00:32 Urine RBC (Auto) 1.0 /HPF (0.0-6.0) 02/26/18 00:32 U Epithel Cells (Auto) 1.0 /HPF (0-13.0) 02/26/18 00:32 Amorphous Crystals 3+ 02/26/18 00:32 Hyaline Casts 4 /LPF 02/26/18 00:32 Urine Mucus Few /HPF 02/26/18 00:32 Urine Total Volume 490 03/09/18 17:38 Urine Creatinine 69.2 mg/dL (0.1-20.0) H 03/09/18 17:38 Ur Creatinine 24 Hour 0.3 (0.8-2.8) L 03/09/18 13:30 Height (in) 67.0 inches 03/09/18 17:38 Weight (lb) 159.0 lbs 03/09/18 17:38 Creatinine Clearance 7 03/09/18 17:38 Urine Sodium 67 mmol/L 02/26/18 13:08 Hep Bs Antigen Non-reactive (Negative) 03/11/18 14:25 Hepatitis C Antibody Non-reactive (NonReactive) 03/11/18 14:44 Blood Type A POSITIVE 03/10/18 09:00 Antibody Screen Negative 03/10/18 09:00 Crossmatch See Detail 03/10/18 09:00
[2018-03-19] MEDS: CORDARONE PO SCH ×2 (14:51→21:46)
[2018-03-19] MEDS: HEPARIN IV PRN (20:47)
[2018-03-20] MEDS: ARTIFICIAL TEARS OPHTH OINT OU PRN (00:39)
[2018-03-20] MEDS: fentaNYL DRIP Premix 2,000 MCG/100 ML BAG IV SCH (03:13)
[2018-03-20 06:18] LABS: Basophils % (Auto) 0.2 % (0.0-1.8); Eosinophils # (Auto) 0.2 K/mm3 (0.0-0.4); Eosinophils % (Auto) 1.1 % (0.0-4.3); Hematocrit 20.7 % (35.5-45.6); Hemoglobin 6.7 gm/dl (11.8-15.2); Lymphocytes # (Auto) 0.9 K/mm3 (1.2-5.4); Lymphocytes % (Auto) 5.6 % (13.4-35.0); Mean Corpuscular HGB Conc 33 % (32-34); Mean Corpuscular Hemoglobin 30 pg (28-32); Mean Corpuscular Volume 92 fl (84-94); Monocytes # (Auto) 1.8 K/mm3 (0.0-0.8); Monocytes % (Auto) 11.7 % (0.0-7.3); Platelet Count 438 K/mm3 (140-440); Red Blood Count 2.25 M/mm3 (3.65-5.03); Red Cell Distribution Width 16.1 % (13.2-15.2)
[2018-03-20 06:40] LABS: Calcium 8.7 mg/dL (8.4-10.2)
[2018-03-20] MEDS ORDERED: NACL 0.9% 500 ML 500 ML IV ONE (08:08)
--- NOTE | 2018-03-20 08:14 | Progress Note ---
Assessment and Plan Assessment and plan: 72-year-old male with history of cerebrovascular accident and hemiplegia, Alzheimer's and nonverbal from [facility] was admitted with altered mental state fever and respiratory failure requiring intubation 03/03: Went into cardiopulmonary arrest. s/p CPR per ACLS protocol , encephalopathy 03/05: Pt had recurrent seizure over the night and CT head showed right MCA acute /subacute stroke and calcified meningioma in the left frontal area 03/12: commence on renal replacemtn therapy 03/11 --Anemia; chronic anemia, hemoglobin 6.7, transfuse 2 units of PRBC during dialysis no evidence of bleeding , Closely monitor H&H and transfuse additional PRBC if needed --Hypokalemia; replace per protocol and monitor levels --Acute hypoxic respiratory failure; status post tracheostomy Continue ventilatory support, nebulizers, pulmonary following Possible LTAC placement --Severe sepsis with septic shock;Resolved, --Acute kidney injury; secondary to ATN On hemodialysis, nephrology following, HD per schedule --Metabolic encephalopathy; multifactorial supportive care --Status post cardiac arrest/anoxic encephalopathy Continue supportive care, poor prognosis --Acute/ Subacute right MCA distribution stroke Supportive care --Meningioma left frontal area 2.8 x 2.2cm Prophylactic seizure medications with Keppra --Sacral Pressure ulcer Continue wound care --History of BPH Continue Finasteride --Hyperlipidemia; statin --DVT prophylaxis; heparin renal dose Poor prognosis --Discharge planning; possible LTAC placement We will be a difficult placement secondary to hemodialysis The high probability of a clinically significant, sudden or life threatening deterioration of the [neurological , renal ,metabolic and PULMONARY] system(s) required my full and direct attention, intervention and personal management. The aggregate critical care time was [33] minutes. This time is in addition to time spent performing reported procedures but includes the following: [X] Data Review and interpretation [X] Patient assessment and monitoring of vital signs [X] Documentation [X] Medication orders and management History Interval history: Patient seen and examined medical records reviewed Low-grade fever, significant drop in H&H Remains intubated status post tracheostomy and vent dependent Awaiting LTAC placement patient is in mild distress Vital signs noted , Hospitalist Physical - Constitutional Vitals: Temp Pulse Resp BP Pulse Ox 97.8 F 100 H 19 93/60 98 03/20/18 04:00 03/20/18 06:00 03/20/18 06:00 03/20/18 06:00 03/20/18 06:00 General appearance: Present: no acute distress, well-nourished, other (s/p tracheostomy) - EENT Eyes: Present: PERRL, EOM intact - Neck Neck: Present: supple - Respiratory Respiratory effort: normal Respiratory: bilateral: diminished, rhonchi, negative: rales, wheezing - Cardiovascular Rhythm: regular Heart Sounds: Present: S1 & S2 - Extremities Extremities: abnormal (contracted) Extremity abnormal: edema - Abdominal General gastrointestinal: soft, non-tender, non-distended, normal bowel sounds, other (PEG tube in place) - Integumentary Integumentary: Present: clear, warm - Psychiatric Psychiatric: other (responsive) - Neurologic Neurologic: other (unresponsive) Results - Labs CBC & Chem 7: 03/20/18 05:45 03/20/18 05:45 Labs: Laboratory Last Values WBC 15.4 K/mm3 (4.5-11.0) H 03/20/18 05:45 RBC 2.25 M/mm3 (3.65-5.03) L 03/20/18 05:45 Hgb 6.7 gm/dl (11.8-15.2) L 03/20/18 05:45 Hct 20.7 % (35.5-45.6) L 03/20/18 05:45 MCV 92 fl (84-94) 03/20/18 05:45 MCH 30 pg (28-32) 03/20/18 05:45 MCHC 33 % (32-34) 03/20/18 05:45 RDW 16.1 % (13.2-15.2) H 03/20/18 05:45 Plt Count 438 K/mm3 (140-440) 03/20/18 05:45 Lymph % (Auto) 5.6 % (13.4-35.0) L 03/20/18 05:45 [place] % (Auto) 11.7 % (0.0-7.3) H 03/20/18 05:45 Eos % (Auto) 1.1 % (0.0-4.3) 03/20/18 05:45 Baso % (Auto) 0.2 % (0.0-1.8) 03/20/18 05:45 Lymph # 0.9 K/mm3 (1.2-5.4) L 03/20/18 05:45 [place] # 1.8 K/mm3 (0.0-0.8) H 03/20/18 05:45 Eos # 0.2 K/mm3 (0.0-0.4) 03/20/18 05:45 Baso # 0.0 K/mm3 (0.0-0.1) 03/20/18 05:45 Add Manual Diff Complete 03/16/18 05:45 Total Counted 100 03/16/18 05:45 Seg Neutrophils % 81.4 % (40.0-70.0) H 03/20/18 05:45 Seg Neuts % (Manual) 89.0 % (40.0-70.0) H 03/16/18 05:45 Band Neutrophils % 1.0 % 03/16/18 05:45 Lymphocytes % (Manual) 4.0 % (13.4-35.0) L 03/16/18 05:45 Reactive Lymphs % (Man) 0 % 03/16/18 05:45 Monocytes % (Manual) 5.0 % (0.0-7.3) 03/16/18 05:45 Eosinophils % (Manual) 0 % (0.0-4.3) 03/16/18 05:45 Basophils % (Manual) 0 % (0.0-1.8) 03/16/18 05:45 Metamyelocytes % 1.0 % 03/16/18 05:45 Myelocytes % 0 % 03/16/18 05:45 Promyelocytes % 0 % 03/16/18 05:45 Blast Cells % 0 % 03/16/18 05:45 Nucleated RBC % Not Reportable 03/16/18 05:45 Seg Neutrophils # 12.6 K/mm3 (1.8-7.7) H 03/20/18 05:45 Seg Neutrophils # Man 9.2 K/mm3 (1.8-7.7) H 03/16/18 05:45 Band Neutrophils # 0.1 K/mm3 03/16/18 05:45 Lymphocytes # (Manual) 0.4 K/mm3 (1.2-5.4) L 03/16/18 05:45 Abs React Lymphs (Man) 0.0 K/mm3 03/16/18 05:45 Monocytes # (Manual) 0.5 K/mm3 (0.0-0.8) 03/16/18 05:45 Eosinophils # (Manual) 0.0 K/mm3 (0.0-0.4) 03/16/18 05:45 Basophils # (Manual) 0.0 K/mm3 (0.0-0.1) 03/16/18 05:45 Metamyelocytes # 0.1 K/mm3 03/16/18 05:45 Myelocytes # 0.0 K/mm3 03/16/18 05:45 Promyelocytes # 0.0 K/mm3 03/16/18 05:45 Blast Cells # 0.0 K/mm3 03/16/18 05:45 WBC Morphology Not Reportable 03/16/18 05:45 Hypersegmented Neuts Not Reportable 03/16/18 05:45 Hyposegmented Neuts Not Reportable 03/16/18 05:45 Hypogranular Neuts Not Reportable 03/16/18 05:45 Smudge Cells Not Reportable 03/16/18 05:45 Toxic Granulation Not Reportable 03/16/18 05:45 Toxic Vacuolation Not Reportable 03/16/18 05:45 Dohle Bodies Not Reportable 03/16/18 05:45 Pelger-Huet Anomaly Not Reportable 03/16/18 05:45 Erwin Rods Not Reportable 03/16/18 05:45 Platelet Estimate Cons 03/16/18 05:45 Clumped Platelets Not Reportable 03/16/18 05:45 Plt Clumps, EDTA Not Reportable 03/16/18 05:45 Large Platelets Not Reportable 03/16/18 05:45 Giant Platelets Not Reportable 03/16/18 05:45 Platelet Satelliting Not Reportable 03/16/18 05:45 Plt Morphology Comment Not Reportable 03/16/18 05:45 RBC Morphology Not Reportable 03/16/18 05:45 Dimorphic RBCs Not Reportable 03/16/18 05:45 Polychromasia Not Reportable 03/16/18 05:45 Hypochromasia 1+ 03/16/18 05:45 Poikilocytosis Not Reportable 03/16/18 05:45 Anisocytosis 1+ 03/16/18 05:45 Microcytosis Not Reportable 03/16/18 05:45 Macrocytosis Not Reportable 03/16/18 05:45 Spherocytes Not Reportable 03/16/18 05:45 Pappenheimer Bodies Not Reportable 03/16/18 05:45 Sickle Cells Not Reportable 03/16/18 05:45 Target Cells Not Reportable 03/16/18 05:45 Tear Drop Cells Not Reportable 03/16/18 05:45 Ovalocytes Not Reportable 03/16/18 05:45 Stomatocytes Few 02/28/18 09:00 Helmet Cells Not Reportable 03/16/18 05:45 [place] Bodies Not Reportable 03/16/18 05:45 [place] Rings Not Reportable 03/16/18 05:45 [place] Cells Not Reportable 03/16/18 05:45 Bite Cells Not Reportable 03/16/18 05:45 Crenated Cell Not Reportable 03/16/18 05:45 Elliptocytes Not Reportable 03/16/18 05:45 Acanthocytes (Spur) Not Reportable 03/16/18 05:45 Rouleaux Not Reportable 03/16/18 05:45 Hemoglobin C Crystals Not Reportable 03/16/18 05:45 Schistocytes Not Reportable 03/16/18 05:45 Malaria parasites Not Reportable 03/16/18 05:45 Aric Bodies Not Reportable 03/16/18 05:45 Hem Pathologist Commnt No 03/16/18 05:45 PT 21.5 Sec. (12.2-14.9) H 02/26/18 20:50 INR 1.75 (0.87-1.13) H 02/26/18 20:50 POC ABG pH 7.423 (7.35-7.45) 03/19/18 11:11 POC ABG pCO2 39.0 (35-45) 03/19/18 11:11 POC ABG pO2 70 (80-105) L 03/19/18 11:11 POC ABG HCO3 25.5 03/19/18 11:11 POC ABG Total CO2 27 03/19/18 11:11 POC ABG O2 Sat 94 03/19/18 11:11 POC ABG Base Excess 1 03/19/18 11:11 VBG pH 7.406 (7.320-7.420) 02/25/18 23:15 FiO2 50 % 03/19/18 11:11 Sodium 133 mmol/L (137-145) L 03/20/18 05:45 Potassium 3.4 mmol/L (3.6-5.0) L 03/20/18 05:45 Chloride 92.3 mmol/L (98-107) L 03/20/18 05:45 Carbon Dioxide 26 mmol/L (22-30) 03/20/18 05:45 Anion Gap 18 mmol/L 03/20/18 05:45 BUN 30 mg/dL (9-20) H 03/20/18 05:45 Creatinine 2.8 mg/dL (0.8-1.5) H 03/20/18 05:45 Estimated GFR 27 ml/min 03/20/18 05:45 BUN/Creatinine Ratio 11 % 03/20/18 05:45 Glucose 104 mg/dL (75-100) H 03/20/18 05:45 POC Glucose 118 (70-105) H 03/20/18 05:55 Lactic Acid 2.60 mmol/L (0.7-2.0) H* 03/15/18 Unknown Calcium 8.7 mg/dL (8.4-10.2) 03/20/18 05:45 Phosphorus 5.10 mg/dL (2.5-4.5) H 03/03/18 04:30 Magnesium 1.60 mg/dL (1.7-2.3) L 03/14/18 05:30 Total Bilirubin 0.80 mg/dL (0.1-1.2) 03/16/18 05:45 Direct Bilirubin 0.5 mg/dL (0-0.2) H 03/16/18 05:45 Indirect Bilirubin 0.3 mg/dL 03/16/18 05:45 AST 55 units/L (5-40) H 03/16/18 05:45 ALT 19 units/L (7-56) 03/16/18 05:45 Alkaline Phosphatase 112 units/L (35-129) 03/16/18 05:45 C-Reactive Protein 19.80 mg/dL (0.00-1.30) H 03/04/18 05:30 Total Protein 6.3 g/dL (6.3-8.2) 03/16/18 05:45 Albumin 2.8 g/dL (3.9-5) L 03/16/18 05:45 Albumin/Globulin Ratio 0.8 % 03/16/18 05:45 Lipase 35 units/L (13-60) 02/26/18 02:58 TSH 2.670 mlU/mL (0.270-4.200) 02/26/18 00:10 Free T4 1.26 ng/dL (0.76-1.46) 02/26/18 00:10 Urine Color [place] (Yellow) 02/26/18 00:32 Urine Turbidity Hazy (Clear) 02/26/18 00:32 Urine pH 5.0 (5.0-7.0) 02/26/18 00:32 Ur Specific [place] 1.015 (1.003-1.030) 02/26/18 00:32 Urine Protein <15 mg/dl mg/dL (Negative) 02/26/18 00:32 Urine Glucose (UA) Neg mg/dL (Negative) 02/26/18 00:32 Urine Ketones Neg mg/dL (Negative) 02/26/18 00:32 Urine Blood Neg (Negative) 02/26/18 00:32 Urine Nitrite Neg (Negative) 02/26/18 00:32 Urine Bilirubin Neg (Negative) 02/26/18 00:32 Urine Urobilinogen 4.0 mg/dL (<2.0) 02/26/18 00:32 Ur Leukocyte Esterase Neg (Negative) 02/26/18 00:32 Urine WBC (Auto) 1.0 /HPF (0.0-6.0) 02/26/18 00:32 Urine RBC (Auto) 1.0 /HPF (0.0-6.0) 02/26/18 00:32 U Epithel Cells (Auto) 1.0 /HPF (0-13.0) 02/26/18 00:32 Amorphous Crystals 3+ 02/26/18 00:32 Hyaline Casts 4 /LPF 02/26/18 00:32 Urine Mucus Few /HPF 02/26/18 00:32 Urine Total Volume 490 03/09/18 17:38 Urine Creatinine 69.2 mg/dL (0.1-20.0) H 03/09/18 17:38 Ur Creatinine 24 Hour 0.3 (0.8-2.8) L 03/09/18 13:30 Height (in) 67.0 inches 03/09/18 17:38 Weight (lb) 159.0 lbs 03/09/18 17:38 Creatinine Clearance 7 03/09/18 17:38 Urine Sodium 67 mmol/L 02/26/18 13:08 Hep Bs Antigen Non-reactive (Negative) 03/11/18 14:25 Hepatitis C Antibody Non-reactive (NonReactive) 03/11/18 14:44 Blood Type A POSITIVE 03/10/18 09:00 Antibody Screen Negative 03/10/18 09:00 Crossmatch See Detail 03/10/18 09:00
[2018-03-20] MEDS: DUONEB *Not for PRN Use IH SCH (08:35)
[2018-03-20] MEDS ORDERED: NACL 0.9% 100 ML IV PRN (08:43)
--- NOTE | 2018-03-20 08:43 | Progress Note ---
Assessment and Plan impression * Acute renal failure. Most likely secondary to ATN * Status post cardiac arrest * Respiratory failure * Encephalopathy * Sepsis * CVA * hypokalemia * Anasarca Recommendations * No evidence of renal recovery at this time * Continue maintenance dialysis as needed. Switch to daily dialysis for the next 3 days * patient is significantly volume overloaded . * Shall remove fluid as tolerated . IV albumin for BP support * Monitor H/H and transfuse as needed * Avoid nephrotoxins * Adjust diet and meds for GFR less than 10 * Monitor fluid status and electrolytes closely * His overall prognosis appears to be extremely poor Subjective Date of service: 03/20/18 Principal diagnosis: Acute Hypoxemic Resp Failure; Severe Sepsis; Aspiration Pneumonai (HCAP) Interval history: patient remains on the ventilator. On 35% FiO2. Sedated. Currently off pressors. On amiodarone drip Objective - Vital Signs Vital signs: Vital Signs - 12hr 03/19/18 03/19/18 03/19/18 20:45 21:00 21:15 Temperature Pulse Rate 112 H 113 H 119 H Pulse Rate [ Anterior Bilateral Throughout] Respiratory 20 20 15 Rate Respiratory Rate [Anterior Bilateral Throughout] Blood Pressure 117/71 122/69 108/87 O2 Sat by Pulse 97 97 96 Oximetry O2 Sat by Pulse Oximetry [ Anterior Bilateral Throughout] O2 Sat by Pulse Oximetry [ Assessment] 03/19/18 03/19/18 03/19/18 21:23 21:30 21:45 Temperature 99.2 F Pulse Rate 113 H 112 H 113 H Pulse Rate [ Anterior Bilateral Throughout] Respiratory 19 18 21 Rate Respiratory Rate [Anterior Bilateral Throughout] Blood Pressure 125/78 125/78 122/80 O2 Sat by Pulse 98 97 Oximetry O2 Sat by Pulse 98 Oximetry [ Anterior Bilateral Throughout] O2 Sat by Pulse Oximetry [ Assessment] 03/19/18 03/19/18 03/19/18 22:00 22:15 22:30 Temperature Pulse Rate 113 H 111 H 109 H Pulse Rate [ Anterior Bilateral Throughout] Respiratory 23 17 17 Rate Respiratory Rate [Anterior Bilateral Throughout] Blood Pressure 120/73 122/73 108/72 O2 Sat by Pulse 98 99 100 Oximetry O2 Sat by Pulse Oximetry [ Anterior Bilateral Throughout] O2 Sat by Pulse Oximetry [ Assessment] 03/19/18 03/19/18 03/19/18 22:45 23:00 23:08 Temperature Pulse Rate 108 H 108 H Pulse Rate [ 108 H Anterior Bilateral Throughout] Respiratory 19 19 Rate Respiratory 22 Rate [Anterior Bilateral Throughout] Blood Pressure 111/69 108/74 O2 Sat by Pulse 100 100 Oximetry O2 Sat by Pulse Oximetry [ Anterior Bilateral Throughout] O2 Sat by Pulse 100 Oximetry [ Assessment] 03/19/18 03/19/18 03/19/18 23:15 23:30 23:32 Temperature Pulse Rate 108 H 107 H 108 H Pulse Rate [ Anterior Bilateral Throughout] Respiratory 23 24 23 Rate Respiratory Rate [Anterior Bilateral Throughout] Blood Pressure 116/76 106/70 106/70 O2 Sat by Pulse 100 100 100 Oximetry O2 Sat by Pulse Oximetry [ Anterior Bilateral Throughout] O2 Sat by Pulse Oximetry [ Assessment] 03/19/18 03/19/18 03/20/18 23:38 23:46 00:00 Temperature 100.2 F H Pulse Rate 122 H 111 H Pulse Rate [ 108 H Anterior Bilateral Throughout] Respiratory 35 H 21 Rate Respiratory 24 Rate [Anterior Bilateral Throughout] Blood Pressure 137/94 117/64 O2 Sat by Pulse 98 96 98 Oximetry O2 Sat by Pulse Oximetry [ Anterior Bilateral Throughout] O2 Sat by Pulse Oximetry [ Assessment] 03/20/18 03/20/18 03/20/18 00:15 00:30 00:45 Temperature Pulse Rate 110 H 111 H 109 H Pulse Rate [ Anterior Bilateral Throughout] Respiratory 20 21 19 Rate Respiratory Rate [Anterior Bilateral Throughout] Blood Pressure 105/64 110/66 103/61 O2 Sat by Pulse 99 99 99 Oximetry O2 Sat by Pulse Oximetry [ Anterior Bilateral Throughout] O2 Sat by Pulse Oximetry [ Assessment] 03/20/18 03/20/18 03/20/18 01:00 01:15 01:30 Temperature Pulse Rate 109 H 110 H 106 H Pulse Rate [ Anterior Bilateral Throughout] Respiratory 19 19 20 Rate Respiratory Rate [Anterior Bilateral Throughout] Blood Pressure 100/58 101/54 111/63 O2 Sat by Pulse 99 99 99 Oximetry O2 Sat by Pulse Oximetry [ Anterior Bilateral Throughout] O2 Sat by Pulse Oximetry [ Assessment] 03/20/18 03/20/18 03/20/18 01:45 02:00 02:15 Temperature Pulse Rate 105 H 106 H 107 H Pulse Rate [ Anterior Bilateral Throughout] Respiratory 19 21 24 Rate Respiratory Rate [Anterior Bilateral Throughout] Blood Pressure 101/59 100/57 111/63 O2 Sat by Pulse 100 99 98 Oximetry O2 Sat by Pulse Oximetry [ Anterior Bilateral Throughout] O2 Sat by Pulse Oximetry [ Assessment] 03/20/18 03/20/18 03/20/18 02:30 02:45 03:00 Temperature Pulse Rate 114 H 103 H 104 H Pulse Rate [ Anterior Bilateral Throughout] Respiratory 21 20 20 Rate Respiratory Rate [Anterior Bilateral Throughout] Blood Pressure 103/61 113/63 108/63 O2 Sat by Pulse 99 97 97 Oximetry O2 Sat by Pulse Oximetry [ Anterior Bilateral Throughout] O2 Sat by Pulse Oximetry [ Assessment] 03/20/18 03/20/18 03/20/18 03:15 03:20 03:30 Temperature Pulse Rate 103 H 104 H 106 H Pulse Rate [ Anterior Bilateral Throughout] Respiratory 20 20 Rate Respiratory Rate [Anterior Bilateral Throughout] Blood Pressure 104/62 104/62 118/67 O2 Sat by Pulse 97 98 99 Oximetry O2 Sat by Pulse Oximetry [ Anterior Bilateral Throughout] O2 Sat by Pulse Oximetry [ Assessment] 03/20/18 03/20/18 03/20/18 03:45 04:00 04:15 Temperature 97.8 F Pulse Rate 112 H 105 H Pulse Rate [ Anterior Bilateral Throughout] Respiratory 21 25 H 17 Rate Respiratory Rate [Anterior Bilateral Throughout] Blood Pressure 118/67 110/74 94/53 O2 Sat by Pulse 96 97 96 Oximetry O2 Sat by Pulse Oximetry [ Anterior Bilateral Throughout] O2 Sat by Pulse Oximetry [ Assessment] 03/20/18 03/20/18 03/20/18 04:30 04:45 05:00 Temperature Pulse Rate 106 H 104 H 102 H Pulse Rate [ Anterior Bilateral Throughout] Respiratory 21 18 18 Rate Respiratory Rate [Anterior Bilateral Throughout] Blood Pressure 94/59 99/54 92/53 O2 Sat by Pulse 97 97 97 Oximetry O2 Sat by Pulse Oximetry [ Anterior Bilateral Throughout] O2 Sat by Pulse Oximetry [ Assessment] 03/20/18 03/20/18 03/20/18 05:15 05:30 05:45 Temperature Pulse Rate 106 H 100 H 101 H Pulse Rate [ Anterior Bilateral Throughout] Respiratory 20 18 15 Rate Respiratory Rate [Anterior Bilateral Throughout] Blood Pressure 99/57 88/50 101/56 O2 Sat by Pulse 98 99 99 Oximetry O2 Sat by Pulse Oximetry [ Anterior Bilateral Throughout] O2 Sat by Pulse Oximetry [ Assessment] 03/20/18 03/20/18 03/20/18 06:00 08:00 08:29 Temperature 99.6 F Pulse Rate 100 H 110 H Pulse Rate [ Anterior Bilateral Throughout] Respiratory 19 Rate Respiratory Rate [Anterior Bilateral Throughout] Blood Pressure 93/60 107/59 O2 Sat by Pulse 98 97 Oximetry O2 Sat by Pulse Oximetry [ Anterior Bilateral Throughout] O2 Sat by Pulse Oximetry [ Assessment] 03/20/18 03/20/18 08:32 08:35 Temperature Pulse Rate 109 H Pulse Rate [ 110 H Anterior Bilateral Throughout] Respiratory 19 Rate Respiratory 18 Rate [Anterior Bilateral Throughout] Blood Pressure 107/59 O2 Sat by Pulse 98 Oximetry O2 Sat by Pulse Oximetry [ Anterior Bilateral Throughout] O2 Sat by Pulse Oximetry [ Assessment] - General Appearance General appearance: well-developed, well-nourished, appears stated age, intubated EENT: PERRL, mucous membranes moist Neck: no thyromegaly, no carotid bruit, supple, other (tracheostomy tube in place . Left IJ vascath in place ) Respiratory: Present: [facility] Cardiology: regular, normal heart rate Gastrointestinal: normal, normoactive bowel sounds, other (PEG tube in place ) Integumentary: other (2-3+ edema ) - Lab 03/20/18 05:45 03/20/18 05:45 Most recent lab results Calcium 8.7 mg/dL (8.4-10.2) 03/20/18 05:45 Phosphorus 5.10 mg/dL (2.5-4.5) H 03/03/18 04:30 Magnesium 1.60 mg/dL (1.7-2.3) L 03/14/18 05:30 Urine Creatinine 69.2 mg/dL (0.1-20.0) H 03/09/18 17:38 Urine Sodium 67 mmol/L 02/26/18 13:08
[2018-03-20] MEDS ORDERED: POTASSIUM CHLORIDE PO ONE (09:00)
--- NOTE | 2018-03-20 10:06 | Progress Note ---
Assessment and Plan Vasopressors currently weaned off. Cont present cardiac regimen. No full anticoagulation. Prognosis is guarded. For PRBC tx today per primary team. Monitor H and H. Cont volume optimization per nephrology. The patient has been seen in conjunction with Dr. Méndez who agrees with the assessment and plan of care. - Patient Problems (1) Atrial flutter with rapid ventricular response Current Visit: Yes Status: Resolved (2) Acute kidney injury superimposed on CKD Current Visit: Yes Status: Acute (3) Anemia Current Visit: Yes Status: Chronic Qualifiers: Anemia type: unspecified type Qualified Code(s): D64.9 - Anemia, unspecified (4) Atrial fibrillation with RVR Current Visit: Yes Status: Resolved (5) Dehydration, severe Current Visit: Yes Status: Acute (6) Pneumonia Current Visit: Yes Status: Acute Qualifiers: Pneumonia type: due to unspecified organism Laterality: left Lung location: lower lobe of lung Qualified Code(s): J18.1 - Lobar pneumonia, unspecified organism (7) Sacral decubitus ulcer, stage III Current Visit: Yes Status: Chronic (8) Septic shock Current Visit: Yes Status: Acute (9) BPH (benign prostatic hyperplasia) Current Visit: Yes Status: Chronic Qualifiers: Lower urinary tract symptom presence: symptoms present (10) Hyperlipidemia Current Visit: Yes Status: Chronic Qualifiers: Hyperlipidemia type: mixed hyperlipidemia Qualified Code(s): E78.2 - Mixed hyperlipidemia (11) Acute CVA (cerebrovascular accident) Current Visit: No Status: Acute (12) Acute encephalopathy Current Visit: No Status: Acute (13) Altered mental status Current Visit: No Status: Acute (14) Carotid stenosis Current Visit: No Status: Chronic (15) Hyponatremia Current Visit: No Status: Acute (16) Neurogenic dysphagia Current Visit: No Status: Acute (17) Status post tracheostomy Current Visit: Yes Status: Acute Subjective Date of service: 03/20/18 Principal diagnosis: Acute Hypoxemic Resp Failure; Severe Sepsis; Aspiration Pneumonai (HCAP) Interval history: pt trached and mechanically ventilated, nonverbal. in AFib with HR 100s. no family at bedside. for HD today. not currently on vasopressors. Objective Last Vital Signs Temp 99.6 F 03/20/18 08:00 Pulse 110 H 03/20/18 08:35 Resp 18 03/20/18 08:35 BP 107/59 03/20/18 08:32 Pulse Ox 98 03/20/18 08:32 - Physical Examination General: Other (intubated, nonverbal, S/P Tracheostomy.) HEENT: Positive: EOMI, Normocephaly, Mucus Membranes Moist Neck: Positive: neck supple, trachea midline, Other (S/P Tracheostomy.) Cardiac: Positive: irregularly irregular, S1/S2 Lungs: Positive: Decreased Breath Sounds, Rales, Rhonchi, Oxygen, Ventilated Respirations Neuro: Positive: Other (nonverbal, left hemiplegia) Abdomen: Positive: Soft, Active Bowel Sounds. Negative: Tender Skin: Positive: Clear. Negative: Rash Musculoskeletal: Decreased Range of Motion Extremities: Present: +3 Edema (BLE) - Labs and Meds CBC 03/20/18 Range/Units 05:45 WBC 15.4 H (4.5-11.0) K/mm3 RBC 2.25 L (3.65-5.03) M/mm3 Hgb 6.7 L (11.8-15.2) gm/dl Hct 20.7 L (35.5-45.6) % Plt Count 438 (140-440) K/mm3 Lymph # 0.9 L (1.2-5.4) K/mm3 [place] # 1.8 H (0.0-0.8) K/mm3 Eos # 0.2 (0.0-0.4) K/mm3 Baso # 0.0 (0.0-0.1) K/mm3 Comprehensive Metabolic Panel 03/20/18 Range/Units 05:45 Sodium 133 L (137-145) mmol/L Potassium 3.4 L (3.6-5.0) mmol/L Chloride 92.3 L (98-107) mmol/L Carbon Dioxide 26 (22-30) mmol/L BUN 30 H (9-20) mg/dL Creatinine 2.8 H (0.8-1.5) mg/dL Glucose 104 H (75-100) mg/dL Calcium 8.7 (8.4-10.2) mg/dL - Imaging and Cardiology EKG: report reviewed, image reviewed - Telemetry EKG Rhythm: Atrial Fibrillation - EKG Sinus rhythms and dysrhythmias: sinus rhythm, sinus tachycardia - Allied health notes Allied health notes reviewed: RT
[2018-03-20] MEDS: HumuLIN R SUB-Q SCH ×2 (10:15→12:52)
[2018-03-20] MEDS: TYLENOL FEEDTUBE PRN (10:20)
[2018-03-20] MEDS: HEPARIN SUB-Q SCH (10:22)
[2018-03-20] MEDS: PEPCID PO SCH (10:22)
[2018-03-20] MEDS: BABY ASPIRIN PO SCH (10:22)
[2018-03-20] MEDS: KEPPRA FEEDTUBE SCH (10:22)
[2018-03-20] MEDS: SODIUM CHLORIDE FLUSH SYRINGE 10 ML IV SCH ×2 (10:22→10:33)
[2018-03-20] MEDS: ROBINUL PO SCH (10:25)
[2018-03-20] MEDS ORDERED: SIMPLE SYRUP FEEDTUBE PRN ×2 (12:26)
[2018-03-20] MEDS ORDERED: SODIUM BICARBONATE FEEDTUBE PRN (12:26)
[2018-03-20] MEDS ORDERED: PANCREAZE DR 10,500 UNIT FEEDTUBE PRN (12:26)
--- NOTE | 2018-03-20 13:40 | Progress Note ---
Assessment and Plan Severe sepsis with septic shock. Aspiration pneumonia, healthcare associated. Acute on chronic encephalopathy. Acute on chronic kidney injury. Anemia. Hypernatremia. Metabolic acidosis. Lactic acidosis. History of hypertension. History of diabetes. History of Alzheimer dementia. - continue daily SBT's - keep Peep at 7 cmH2O for now - continue bronchodilators with pulmonary hygiene per RT - continue to wean FiO2 for sats > 90% (dropped to 40%) - continue addressing VAP bundle daily - s/p tracheostomy - continue routine trach care per RT - continue metoprolol 5 mg IV q6h prn ordered for RVR - cardiology on case and managing further - tolerating HD/UF well so far (nephrology assistance appreciated) - s/p LIJ vascath - prn vasopressors (off now) if MAP <60 mmHg - strict I's & O's re: IDANNA and will leave shrestha catheter in place for now - further azotemia management per cake tester (input appreciated) - conservative volume management strategies at this point - continue enteral nutrition as tolerated - continue mobility protocol for pressure ulcer prophylaxis - continue GI & VTE prophylaxis - continue antibiotics; on vancomycin for MRSA pneumonia and following other cultures - ID evaluation ongoing (de-escalate Anti-infective's per ID recs) - continue contact precautions re: 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 case discussed at length during team rounds and care plan formulated The high probability of a clinically significant, sudden or life threatening deterioration of the [cardiac, respiratory and GI] system(s) required my full and direct attention, intervention and personal management. The aggregate critical care time was [35] minutes without overlap. Time includes spent on; [x] Data Review and interpretation [x] Patient assessment and monitoring of vital signs [x] Documentation [x] Medication orders and management Subjective Date of service: 03/19/18 Principal diagnosis: Acute Hypoxemic Resp Failure; Severe Sepsis; Aspiration Pneumonai (HCAP) Interval history: Subjective Date of service: 03/20/18 Principal diagnosis: Acute Hypoxemic Resp Failure; Severe Sepsis; Aspiration Pneumonai (HCAP) Interval history: Patient is seen today for: Acute Hypoxemic Resp Failure; Severe Sepsis; Aspiration Pneumonai (HCAP) Seen and examined at bedside; 24hour events reviewed; nursing and respiratory care staff consulted; no adverse overnight events reported to me; remains on MVS ; remains dialysis dependent; AMS is persistent; weaning now and tolerating decently; on Psupp of 12 with Peep of 7; HD/UF ongoing again and has definitely helped with improving pulmonary edema Objective Vital Signs - 12hr 03/20/18 03/20/18 03/20/18 01:45 02:00 02:15 Temperature Pulse Rate 105 H 106 H 107 H Pulse Rate [ Anterior Bilateral Throughout] Respiratory 19 21 24 Rate Respiratory Rate [Anterior Bilateral Throughout] Blood Pressure 101/59 100/57 111/63 O2 Sat by Pulse 100 99 98 Oximetry O2 Sat by Pulse Oximetry [ Anterior Bilateral Throughout] 03/20/18 03/20/18 03/20/18 02:30 02:45 03:00 Temperature Pulse Rate 114 H 103 H 104 H Pulse Rate [ Anterior Bilateral Throughout] Respiratory 21 20 20 Rate Respiratory Rate [Anterior Bilateral Throughout] Blood Pressure 103/61 113/63 108/63 O2 Sat by Pulse 99 97 97 Oximetry O2 Sat by Pulse Oximetry [ Anterior Bilateral Throughout] 03/20/18 03/20/18 03/20/18 03:15 03:20 03:30 Temperature Pulse Rate 103 H 104 H 106 H Pulse Rate [ Anterior Bilateral Throughout] Respiratory 20 20 Rate Respiratory Rate [Anterior Bilateral Throughout] Blood Pressure 104/62 104/62 118/67 O2 Sat by Pulse 97 98 99 Oximetry O2 Sat by Pulse Oximetry [ Anterior Bilateral Throughout] 03/20/18 03/20/18 03/20/18 03:45 04:00 04:15 Temperature 97.8 F Pulse Rate 112 H 105 H Pulse Rate [ Anterior Bilateral Throughout] Respiratory 21 25 H 17 Rate Respiratory Rate [Anterior Bilateral Throughout] Blood Pressure 118/67 110/74 94/53 O2 Sat by Pulse 96 97 96 Oximetry O2 Sat by Pulse Oximetry [ Anterior Bilateral Throughout] 03/20/18 03/20/18 03/20/18 04:30 04:45 05:00 Temperature Pulse Rate 106 H 104 H 102 H Pulse Rate [ Anterior Bilateral Throughout] Respiratory 21 18 18 Rate Respiratory Rate [Anterior Bilateral Throughout] Blood Pressure 94/59 99/54 92/53 O2 Sat by Pulse 97 97 97 Oximetry O2 Sat by Pulse Oximetry [ Anterior Bilateral Throughout] 03/20/18 03/20/18 03/20/18 05:15 05:30 05:45 Temperature Pulse Rate 106 H 100 H 101 H Pulse Rate [ Anterior Bilateral Throughout] Respiratory 20 18 15 Rate Respiratory Rate [Anterior Bilateral Throughout] Blood Pressure 99/57 88/50 101/56 O2 Sat by Pulse 98 99 99 Oximetry O2 Sat by Pulse Oximetry [ Anterior Bilateral Throughout] 03/20/18 03/20/18 03/20/18 06:00 06:15 06:30 Temperature Pulse Rate 100 H 101 H 101 H Pulse Rate [ Anterior Bilateral Throughout] Respiratory 19 13 15 Rate Respiratory Rate [Anterior Bilateral Throughout] Blood Pressure 93/60 100/59 94/53 O2 Sat by Pulse 98 98 99 Oximetry O2 Sat by Pulse Oximetry [ Anterior Bilateral Throughout] 03/20/18 03/20/18 03/20/18 06:45 07:00 07:15 Temperature Pulse Rate 101 H 105 H 103 H Pulse Rate [ Anterior Bilateral Throughout] Respiratory 18 19 31 H Rate Respiratory Rate [Anterior Bilateral Throughout] Blood Pressure 98/57 103/57 96/52 O2 Sat by Pulse 99 99 100 Oximetry O2 Sat by Pulse Oximetry [ Anterior Bilateral Throughout] 03/20/18 03/20/18 03/20/18 07:30 07:45 08:00 Temperature 99.6 F Pulse Rate 106 H 107 H 110 H Pulse Rate [ Anterior Bilateral Throughout] Respiratory 18 23 23 Rate Respiratory Rate [Anterior Bilateral Throughout] Blood Pressure 104/56 97/60 97/61 O2 Sat by Pulse 98 97 97 Oximetry O2 Sat by Pulse Oximetry [ Anterior Bilateral Throughout] 03/20/18 03/20/18 03/20/18 08:15 08:29 08:30 Temperature Pulse Rate 111 H 110 H 109 H Pulse Rate [ Anterior Bilateral Throughout] Respiratory 22 19 Rate Respiratory Rate [Anterior Bilateral Throughout] Blood Pressure 107/59 107/59 98/70 O2 Sat by Pulse 97 97 99 Oximetry O2 Sat by Pulse Oximetry [ Anterior Bilateral Throughout] 03/20/18 03/20/18 03/20/18 08:32 08:35 08:45 Temperature Pulse Rate 109 H 107 H Pulse Rate [ 110 H Anterior Bilateral Throughout] Respiratory 19 16 Rate Respiratory 18 Rate [Anterior Bilateral Throughout] Blood Pressure 107/59 101/64 O2 Sat by Pulse 98 99 Oximetry O2 Sat by Pulse Oximetry [ Anterior Bilateral Throughout] 03/20/18 03/20/18 03/20/18 09:00 09:15 09:30 Temperature Pulse Rate 112 H 106 H 107 H Pulse Rate [ Anterior Bilateral Throughout] Respiratory 22 18 19 Rate Respiratory Rate [Anterior Bilateral Throughout] Blood Pressure 104/66 94/55 103/58 O2 Sat by Pulse 98 98 98 Oximetry O2 Sat by Pulse Oximetry [ Anterior Bilateral Throughout] 03/20/18 03/20/18 03/20/18 09:45 10:00 10:15 Temperature 100.2 F H Pulse Rate 106 H 112 H 112 H Pulse Rate [ Anterior Bilateral Throughout] Respiratory 19 18 22 Rate Respiratory Rate [Anterior Bilateral Throughout] Blood Pressure 95/57 97/61 100/67 O2 Sat by Pulse 97 98 100 Oximetry O2 Sat by Pulse 100 Oximetry [ Anterior Bilateral Throughout] 03/20/18 03/20/18 03/20/18 10:30 10:45 11:00 Temperature Pulse Rate 108 H 119 H 107 H Pulse Rate [ Anterior Bilateral Throughout] Respiratory 19 19 20 Rate Respiratory Rate [Anterior Bilateral Throughout] Blood Pressure 88/62 90/57 88/55 O2 Sat by Pulse 100 99 99 Oximetry O2 Sat by Pulse Oximetry [ Anterior Bilateral Throughout] 03/20/18 03/20/18 03/20/18 11:15 11:30 11:45 Temperature Pulse Rate 115 H 111 H 112 H Pulse Rate [ Anterior Bilateral Throughout] Respiratory 17 17 18 Rate Respiratory Rate [Anterior Bilateral Throughout] Blood Pressure 93/62 83/52 86/58 O2 Sat by Pulse 99 99 97 Oximetry O2 Sat by Pulse Oximetry [ Anterior Bilateral Throughout] 03/20/18 03/20/18 03/20/18 12:00 12:20 12:35 Temperature 99.7 F H 98.2 F 98.7 F Pulse Rate 116 H 115 H 106 H Pulse Rate [ Anterior Bilateral Throughout] Respiratory 22 20 20 Rate Respiratory Rate [Anterior Bilateral Throughout] Blood Pressure 89/54 84/56 90/52 O2 Sat by Pulse 97 97 98 Oximetry O2 Sat by Pulse Oximetry [ Anterior Bilateral Throughout] 03/20/18 03/20/18 13:21 13:25 Temperature 98.6 F Pulse Rate 107 H 112 H Pulse Rate [ Anterior Bilateral Throughout] Respiratory 20 Rate Respiratory Rate [Anterior Bilateral Throughout] Blood Pressure 81/48 81/48 O2 Sat by Pulse 96 Oximetry O2 Sat by Pulse Oximetry [ Anterior Bilateral Throughout] Constitutional: appears uncomfortable, other (elderly looking AAM, normocephalic and atraumatic on MVS with increased respiratory effort) Eyes: non-icteric ENT: oropharynx moist, other (s/p tracheostomy) Neck: supple, no lymphadenopathy, no JVD, other (no thyromegaly) Effort: mildly labored Ascultation: Right: diminished breath sounds (base), Bilateral: rales Percussion: Right: dull (base), Bilateral: not dull Cardiovascular: irregular rhythm, other (No R/M, S1,S2) Gastrointestinal: normoactive bowel sounds, soft, non-tender, non-distended, other (+ PEG; No HSM, scrotal edema) Integumentary: other (poor turgor) Extremities: no cyanosis, pulses normal, no ischemia or petechiae, anasarca Neurologic: pupils equal and round, unable to assess Psychiatric: other (unable to assess re: encephalopathy) CBC and BMP: 03/20/18 05:45 03/20/18 05:45 ABG, PT/INR, D-dimer: ABG POC ABG pH 7.423 (7.35-7.45) 03/19/18 11:11 POC ABG pCO2 39.0 (35-45) 03/19/18 11:11 POC ABG pO2 70 (80-105) L 03/19/18 11:11 POC ABG HCO3 25.5 03/19/18 11:11 POC ABG Total CO2 27 03/19/18 11:11 POC ABG O2 Sat 94 03/19/18 11:11 PT/INR, D-dimer PT 21.5 Sec. (12.2-14.9) H 02/26/18 20:50 INR 1.75 (0.87-1.13) H 02/26/18 20:50 Abnormal lab findings: Abnormal Labs 02/25/18 02/25/18 02/25/18 23:15 23:15 23:15 WBC 12.3 H RBC 3.56 L Hgb 10.2 L Hct 33.7 L MCV 95 H MCHC 30 L RDW 17.7 H Plt Count Lymph % (Auto) [place] % (Auto) Lymph # [place] # Seg Neutrophils % Seg Neuts % (Manual) 35.0 L Lymphocytes % (Manual) 13.0 L Monocytes % (Manual) 8.0 H Nucleated RBC % Seg Neutrophils # Seg Neutrophils # Man Lymphocytes # (Manual) Monocytes # (Manual) 1.0 H PT 20.3 H INR 1.63 H POC ABG pH POC ABG pCO2 POC ABG pO2 Sodium 152 H Potassium Chloride 108.7 H Carbon Dioxide 18 L BUN 136 H Creatinine 5.2 H Glucose POC Glucose Lactic Acid Calcium 8.0 L Phosphorus Magnesium Total Bilirubin 4.50 H Direct Bilirubin AST 83 H C-Reactive Protein Total Protein Albumin 2.7 L Urine Creatinine Ur Creatinine 24 Hour Crossmatch 02/25/18 02/25/18 02/26/18 23:15 23:30 03:06 WBC RBC Hgb Hct MCV MCHC RDW Plt Count Lymph % (Auto) [place] % (Auto) Lymph # [place] # Seg Neutrophils % Seg Neuts % (Manual) Lymphocytes % (Manual) Monocytes % (Manual) Nucleated RBC % Seg Neutrophils # Seg Neutrophils # Man Lymphocytes # (Manual) Monocytes # (Manual) PT INR POC ABG pH POC ABG pCO2 25.2 L POC ABG pO2 69 L Sodium Potassium Chloride Carbon Dioxide BUN Creatinine Glucose POC Glucose Lactic Acid 7.00 H* 9.70 H* Calcium Phosphorus Magnesium Total Bilirubin Direct Bilirubin AST C-Reactive Protein Total Protein Albumin Urine Creatinine Ur Creatinine 24 Hour Crossmatch 02/26/18 02/26/18 02/26/18 05:12 05:43 07:39 WBC 23.7 H RBC 3.27 L Hgb 9.3 L Hct 31.1 L MCV 95 H MCHC 30 L RDW 17.4 H Plt Count Lymph % (Auto) [place] % (Auto) Lymph # [place] # Seg Neutrophils % Seg Neuts % (Manual) Lymphocytes % (Manual) 2.0 L Monocytes % (Manual) Nucleated RBC % 1.0 H Seg Neutrophils # Seg Neutrophils # Man 16.1 H Lymphocytes # (Manual) 0.5 L Monocytes # (Manual) 1.2 H PT INR POC ABG pH POC ABG pCO2 19.5 L POC ABG pO2 72 L Sodium Potassium Chloride Carbon Dioxide BUN Creatinine Glucose POC Glucose Lactic Acid 8.80 H* Calcium Phosphorus Magnesium Total Bilirubin Direct Bilirubin AST C-Reactive Protein Total Protein Albumin Urine Creatinine Ur Creatinine 24 Hour Crossmatch 02/26/18 02/26/18 02/26/18 07:39 12:06 13:08 WBC RBC Hgb Hct MCV MCHC RDW Plt Count Lymph % (Auto) [place] % (Auto) Lymph # [place] # Seg Neutrophils % Seg Neuts % (Manual) Lymphocytes % (Manual) Monocytes % (Manual) Nucleated RBC % Seg Neutrophils # Seg Neutrophils # Man Lymphocytes # (Manual) Monocytes # (Manual) PT INR POC ABG pH POC ABG pCO2 27.8 L POC ABG pO2 168 H Sodium 155 H Potassium Chloride 114.2 H Carbon Dioxide 14 L BUN 120 H Creatinine 4.6 H Glucose 108 H POC Glucose Lactic Acid Calcium 7.7 L Phosphorus Magnesium Total Bilirubin 4.50 H Direct Bilirubin AST 105 H C-Reactive Protein Total Protein Albumin 2.4 L Urine Creatinine 38.6 H Ur Creatinine 24 Hour Crossmatch 02/26/18 02/26/18 02/26/18 18:41 20:50 20:50 WBC RBC Hgb Hct MCV MCHC RDW Plt Count Lymph % (Auto) [place] % (Auto) Lymph # [place] # Seg Neutrophils % Seg Neuts % (Manual) Lymphocytes % (Manual) Monocytes % (Manual) Nucleated RBC % Seg Neutrophils # Seg Neutrophils # Man Lymphocytes # (Manual) Monocytes # (Manual) PT 21.5 H INR 1.75 H POC ABG pH POC ABG pCO2 POC ABG pO2 Sodium Potassium Chloride Carbon Dioxide BUN Creatinine Glucose POC Glucose 135 H Lactic Acid Calcium Phosphorus Magnesium Total Bilirubin Direct Bilirubin AST C-Reactive Protein 33.90 H Total Protein Albumin Urine Creatinine Ur Creatinine 24 Hour Crossmatch 02/27/18 02/27/18 02/27/18 03:39 04:56 04:56 WBC 20.1 H RBC 2.92 L Hgb 8.4 L Hct 27.5 L MCV MCHC 31 L RDW 17.1 H Plt Count Lymph % (Auto) [place] % (Auto) Lymph # [place] # Seg Neutrophils % Seg Neuts % (Manual) 92.0 H Lymphocytes % (Manual) 3.0 L Monocytes % (Manual) Nucleated RBC % Seg Neutrophils # Seg Neutrophils # Man 18.5 H Lymphocytes # (Manual) 0.6 L Monocytes # (Manual) PT INR POC ABG pH 7.453 H POC ABG pCO2 27.2 L POC ABG pO2 Sodium 149 H Potassium Chloride 113.1 H Carbon Dioxide 18 L BUN 103 H Creatinine 3.8 H Glucose 120 H POC Glucose Lactic Acid Calcium 7.8 L Phosphorus Magnesium Total Bilirubin Direct Bilirubin AST C-Reactive Protein Total Protein Albumin Urine Creatinine Ur Creatinine 24 Hour Crossmatch 02/27/18 02/27/1802/27/18 12:37 12:45 17:51 WBC RBC Hgb Hct MCV MCHC RDW Plt Count Lymph % (Auto) [place] % (Auto) Lymph # [place] # Seg Neutrophils % Seg Neuts % (Manual) Lymphocytes % (Manual) Monocytes % (Manual) Nucleated RBC % Seg Neutrophils # Seg Neutrophils # Man Lymphocytes # (Manual) Monocytes # (Manual) PT INR POC ABG pH POC ABG pCO2 POC ABG pO2 Sodium Potassium Chloride Carbon Dioxide BUN Creatinine Glucose POC Glucose 169 H 133 H Lactic Acid 2.90 H* Calcium Phosphorus Magnesium Total Bilirubin Direct Bilirubin AST C-Reactive Protein Total Protein Albumin Urine Creatinine Ur Creatinine 24 Hour Crossmatch 02/28/18 02/28/18 02/28/18 00:23 05:00 05:02 WBC RBC Hgb Hct MCV MCHC RDW Plt Count Lymph % (Auto) [place] % (Auto) Lymph # [place] # Seg Neutrophils % Seg Neuts % (Manual) Lymphocytes % (Manual) Monocytes % (Manual) Nucleated RBC % Seg Neutrophils # Seg Neutrophils # Man Lymphocytes # (Manual) Monocytes # (Manual) PT INR POC ABG pH POC ABG pCO2 POC ABG pO2 Sodium Potassium Chloride Carbon Dioxide BUN Creatinine Glucose POC Glucose 161 H 116 H Lactic Acid 2.70 H* Calcium Phosphorus Magnesium Total Bilirubin Direct Bilirubin AST C-Reactive Protein Total Protein Albumin Urine Creatinine Ur Creatinine 24 Hour Crossmatch 02/28/18 02/28/18 02/28/18 05:28 07:04 09:00 WBC 22.3 H RBC 2.63 L Hgb 7.6 L Hct 24.1 L MCV MCHC 31 L RDW 17.4 H Plt Count Lymph % (Auto) [place] % (Auto) Lymph # [place] # Seg Neutrophils % Seg Neuts % (Manual) 84.0 H Lymphocytes % (Manual) 8.0 L Monocytes % (Manual) Nucleated RBC % Seg Neutrophils # Seg Neutrophils # Man 18.7 H Lymphocytes # (Manual) Monocytes # (Manual) 1.1 H PT INR POC ABG pH 7.477 H POC ABG pCO2 24.6 L POC ABG pO2 57 L Sodium Potassium Chloride Carbon Dioxide BUN Creatinine Glucose POC Glucose Lactic Acid 3.10 H* Calcium Phosphorus Magnesium Total Bilirubin Direct Bilirubin AST C-Reactive Protein Total Protein Albumin Urine Creatinine Ur Creatinine 24 Hour Crossmatch 02/28/18 02/28/18 02/28/18 09:00 11:36 17:10 WBC RBC Hgb Hct MCV MCHC RDW Plt Count Lymph % (Auto) [place] % (Auto) Lymph # [place] # Seg Neutrophils % Seg Neuts % (Manual) Lymphocytes % (Manual) Monocytes % (Manual) Nucleated RBC % Seg Neutrophils # Seg Neutrophils # Man Lymphocytes # (Manual) Monocytes # (Manual) PT INR POC ABG pH POC ABG pCO2 POC ABG pO2 Sodium Potassium 3.3 L 3.5 L Chloride Carbon Dioxide 21 L 19 L BUN 76 H 69 H Creatinine 2.8 H 2.5 H Glucose 104 H 124 H POC Glucose 107 H Lactic Acid Calcium 7.6 L 7.3 L Phosphorus 1.50 L Magnesium Total Bilirubin Direct Bilirubin AST C-Reactive Protein Total Protein Albumin Urine Creatinine Ur Creatinine 24 Hour Crossmatch 02/28/18 02/28/18 03/01/18 17:36 23:40 06:25 WBC RBC Hgb Hct MCV MCHC RDW Plt Count Lymph % (Auto) [place] % (Auto) Lymph # [place] # Seg Neutrophils % Seg Neuts % (Manual) Lymphocytes % (Manual) Monocytes % (Manual) Nucleated RBC % Seg Neutrophils # Seg Neutrophils # Man Lymphocytes # (Manual) Monocytes # (Manual) PT INR POC ABG pH 7.542 H POC ABG pCO2 23.3 L POC ABG pO2 62 L Sodium Potassium Chloride Carbon Dioxide BUN Creatinine Glucose POC Glucose 151 H 111 H Lactic Acid Calcium Phosphorus Magnesium Total Bilirubin Direct Bilirubin AST C-Reactive Protein Total Protein Albumin Urine Creatinine Ur Creatinine 24 Hour Crossmatch 03/01/18 03/01/18 03/02/18 10:00 12:12 05:21 WBC RBC Hgb Hct MCV MCHC RDW Plt Count Lymph % (Auto) [place] % (Auto) Lymph # [place] # Seg Neutrophils % Seg Neuts % (Manual) Lymphocytes % (Manual) Monocytes % (Manual) Nucleated RBC % Seg Neutrophils # Seg Neutrophils # Man Lymphocytes # (Manual) Monocytes # (Manual) PT INR POC ABG pH 7.473 H POC ABG pCO2 21.5 L POC ABG pO2 79 L Sodium Potassium 3.5 L Chloride Carbon Dioxide 18 L BUN 66 H Creatinine 2.8 H Glucose 103 H POC Glucose 176 H Lactic Acid Calcium 7.5 L Phosphorus Magnesium Total Bilirubin Direct Bilirubin AST C-Reactive Protein Total Protein Albumin Urine Creatinine Ur Creatinine 24 Hour Crossmatch 03/02/18 03/02/1818 06:00 06:00 11:47 WBC 18.2 H RBC 2.43 L Hgb 7.2 L Hct 22.6 L MCV MCHC RDW 17.6 H Plt Count Lymph % (Auto) [place] % (Auto) Lymph # [place] # Seg Neutrophils % Seg Neuts % (Manual) Lymphocytes % (Manual) Monocytes % (Manual) Nucleated RBC % Seg Neutrophils # Seg Neutrophils # Man Lymphocytes # (Manual) Monocytes # (Manual) PT INR POC ABG pH POC ABG pCO2 POC ABG pO2 Sodium Potassium Chloride Carbon Dioxide 17 L BUN 68 H Creatinine 3.1 H Glucose 106 H POC Glucose 136 H Lactic Acid Calcium 7.2 L Phosphorus Magnesium Total Bilirubin Direct Bilirubin AST C-Reactive Protein Total Protein Albumin Urine Creatinine Ur Creatinine 24 Hour Crossmatch 03/02/18 03/03/18 03/03/18 17:35 00:54 03:38 WBC RBC Hgb Hct MCV MCHC RDW Plt Count Lymph % (Auto) [place] % (Auto) Lymph # [place] # Seg Neutrophils % Seg Neuts % (Manual) Lymphocytes % (Manual) Monocytes % (Manual) Nucleated RBC % Seg Neutrophils # Seg Neutrophils # Man Lymphocytes # (Manual) Monocytes # (Manual) PT INR POC ABG pH 7.451 H POC ABG pCO2 20.5 L POC ABG pO2 Sodium Potassium Chloride Carbon Dioxide BUN Creatinine Glucose POC Glucose 109 H 131 H Lactic Acid Calcium Phosphorus Magnesium Total Bilirubin Direct Bilirubin AST C-Reactive Protein Total Protein Albumin Urine Creatinine Ur Creatinine 24 Hour Crossmatch 03/03/18 03/03/18 03/03/18 04:30 06:15 06:15 WBC 21.1 H RBC 2.20 L Hgb 6.3 L Hct 20.8 L MCV 95 H MCHC 30 L RDW 17.8 H Plt Count Lymph % (Auto) [place] % (Auto) Lymph # [place] # Seg Neutrophils % Seg Neuts % (Manual) 71.0 H Lymphocytes % (Manual) 8.0 L Monocytes % (Manual) Nucleated RBC % Seg Neutrophils # Seg Neutrophils # Man 15.0 H Lymphocytes # (Manual) Monocytes # (Manual) 1.3 H PT INR POC ABG pH POC ABG pCO2 POC ABG pO2 Sodium 130 L D Potassium Chloride 96.4 L Carbon Dioxide 14 L BUN 69 H Creatinine 3.1 H Glucose POC Glucose Lactic Acid Calcium 7.0 L Phosphorus 5.10 H Magnesium Total Bilirubin Direct Bilirubin AST C-Reactive Protein Total Protein Albumin Urine Creatinine Ur Creatinine 24 Hour Crossmatch 03/03/18 03/03/18 03/03/18 08:37 09:38 12:13 WBC RBC Hgb Hct MCV MCHC RDW Plt Count Lymph % (Auto) [place] % (Auto) Lymph # [place] # Seg Neutrophils % Seg Neuts % (Manual) Lymphocytes % (Manual) Monocytes % (Manual) Nucleated RBC % Seg Neutrophils # Seg Neutrophils # Man Lymphocytes # (Manual) Monocytes # (Manual) PT INR POC ABG pH POC ABG pCO2 23.8 L POC ABG pO2 156 H Sodium Potassium Chloride Carbon Dioxide BUN Creatinine Glucose POC Glucose 119 H Lactic Acid Calcium Phosphorus Magnesium Total Bilirubin Direct Bilirubin AST C-Reactive Protein Total Protein Albumin Urine Creatinine Ur Creatinine 24 Hour Crossmatch See Detail 03/03/18 03/03/18 03/04/18 12:37 18:05 00:59 WBC RBC Hgb Hct MCV MCHC RDW Plt Count Lymph % (Auto) [place] % (Auto) Lymph # [place] # Seg Neutrophils % Seg Neuts % (Manual) Lymphocytes % (Manual) Monocytes % (Manual) Nucleated RBC % Seg Neutrophils # Seg Neutrophils # Man Lymphocytes # (Manual) Monocytes # (Manual) PT INR POC ABG pH POC ABG pCO2 POC ABG pO2 Sodium Potassium Chloride Carbon Dioxide BUN Creatinine Glucose POC Glucose 154 H 159 H Lactic Acid Calcium Phosphorus Magnesium 1.40 L Total Bilirubin Direct Bilirubin AST C-Reactive Protein Total Protein Albumin Urine Creatinine Ur Creatinine 24 Hour Crossmatch 03/04/18 03/04/18 03/04/18 04:27 05:30 05:30 WBC 22.6 H RBC 2.46 L Hgb 7.1 L Hct 21.7 L MCV MCHC RDW 17.2 H Plt Count Lymph % (Auto) [place] % (Auto) Lymph # [place] # Seg Neutrophils % Seg Neuts % (Manual) 84.0 H Lymphocytes % (Manual) 5.0 L Monocytes % (Manual) Nucleated RBC % Seg Neutrophils # Seg Neutrophils # Man 19.0 H Lymphocytes # (Manual) 1.1 L Monocytes # (Manual) PT INR POC ABG pH 7.486 H POC ABG pCO2 24.8 L POC ABG pO2 Sodium 135 L Potassium Chloride 96.2 L Carbon Dioxide 19 L BUN 69 H Creatinine 3.1 H Glucose 121 H POC Glucose Lactic Acid Calcium 7.1 L Phosphorus Magnesium Total Bilirubin Direct Bilirubin AST C-Reactive Protein 19.80 H Total Protein Albumin Urine Creatinine Ur Creatinine 24 Hour Crossmatch 03/04/18 03/04/18 03/04/18 05:38 11:47 17:53 WBC RBC Hgb Hct MCV MCHC RDW Plt Count Lymph % (Auto) [place] % (Auto) Lymph # [place] # Seg Neutrophils % Seg Neuts % (Manual) Lymphocytes % (Manual) Monocytes % (Manual) Nucleated RBC % Seg Neutrophils # Seg Neutrophils # Man Lymphocytes # (Manual) Monocytes # (Manual) PT INR POC ABG pH POC ABG pCO2 POC ABG pO2 Sodium Potassium Chloride Carbon Dioxide BUN Creatinine Glucose POC Glucose 134 H 109 H 113 H Lactic Acid Calcium Phosphorus Magnesium Total Bilirubin Direct Bilirubin AST C-Reactive Protein Total Protein Albumin Urine Creatinine Ur Creatinine 24 Hour Crossmatch 03/05/18 03/05/18 03/05/18 00:22 05:15 05:15 WBC 24.3 H RBC 2.29 L Hgb 6.8 L Hct 20.3 L MCV MCHC RDW 16.7 H Plt Count Lymph % (Auto) [place] % (Auto) Lymph # [place] # Seg Neutrophils % Seg Neuts % (Manual) 88.0 H Lymphocytes % (Manual) 3.0 L Monocytes % (Manual) Nucleated RBC % Seg Neutrophils # Seg Neutrophils # Man 21.4 H Lymphocytes # (Manual) 0.7 L Monocytes # (Manual) PT INR POC ABG pH POC ABG pCO2 POC ABG pO2 Sodium 132 L Potassium Chloride 91.2 L Carbon Dioxide BUN 69 H Creatinine 3.3 H Glucose POC Glucose 113 H Lactic Acid Calcium 6.9 L Phosphorus Magnesium Total Bilirubin Direct Bilirubin AST C-Reactive Protein Total Protein Albumin Urine Creatinine Ur Creatinine 24 Hour Crossmatch 03/05/18 03/05/18 03/05/18 05:36 11:51 16:00 WBC RBC Hgb Hct MCV MCHC RDW Plt Count Lymph % (Auto) [place] % (Auto) Lymph # [place] # Seg Neutrophils % Seg Neuts % (Manual) Lymphocytes % (Manual) Monocytes % (Manual) Nucleated RBC % Seg Neutrophils # Seg Neutrophils # Man Lymphocytes # (Manual) Monocytes # (Manual) PT INR POC ABG pH 7.519 H POC ABG pCO2 27.0 L POC ABG pO2 68 L Sodium Potassium Chloride Carbon Dioxide BUN Creatinine Glucose POC Glucose 118 H 131 H Lactic Acid Calcium Phosphorus Magnesium Total Bilirubin Direct Bilirubin AST C-Reactive Protein Total Protein Albumin Urine Creatinine Ur Creatinine 24 Hour Crossmatch 03/06/18 03/06/18 03/06/18 00:00 01:27 04:44 WBC 24.5 H RBC 2.90 L Hgb 8.5 L Hct 25.8 L MCV MCHC RDW 16.3 H Plt Count Lymph % (Auto) [place] % (Auto) Lymph # [place] # Seg Neutrophils % Seg Neuts % (Manual) 96.0 H Lymphocytes % (Manual) 1.5 L Monocytes % (Manual) Nucleated RBC % 1.0 H Seg Neutrophils # Seg Neutrophils # Man 23.5 H Lymphocytes # (Manual) 0.4 L Monocytes # (Manual) PT INR POC ABG pH POC ABG pCO2 POC ABG pO2 Sodium Potassium Chloride 92.9 L Carbon Dioxide BUN 67 H Creatinine 3.4 H Glucose POC Glucose 127 H Lactic Acid Calcium 7.2 L Phosphorus Magnesium Total Bilirubin Direct Bilirubin AST C-Reactive Protein Total Protein Albumin Urine Creatinine Ur Creatinine 24 Hour Crossmatch 03/06/18 03/06/18 03/06/18 04:54 05:54 12:08 WBC RBC Hgb Hct MCV MCHC RDW Plt Count Lymph % (Auto) [place] % (Auto) Lymph # [place] # Seg Neutrophils % Seg Neuts % (Manual) Lymphocytes % (Manual) Monocytes % (Manual) Nucleated RBC % Seg Neutrophils # Seg Neutrophils # Man Lymphocytes # (Manual) Monocytes # (Manual) PT INR POC ABG pH 7.551 H POC ABG pCO2 29.5 L POC ABG pO2 57 L Sodium Potassium Chloride Carbon Dioxide BUN Creatinine Glucose POC Glucose 108 H 123 H Lactic Acid Calcium Phosphorus Magnesium Total Bilirubin Direct Bilirubin AST C-Reactive Protein Total Protein Albumin Urine Creatinine Ur Creatinine 24 Hour Crossmatch 03/06/18 03/07/18 03/07/18 21:16 05:00 05:00 WBC 17.5 H RBC 2.41 L Hgb 7.3 L Hct 21.5 L MCV MCHC RDW 16.6 H Plt Count Lymph % (Auto) [place] % (Auto) Lymph # [place] # Seg Neutrophils % Seg Neuts % (Manual) 97.0 H Lymphocytes % (Manual) 1.0 L Monocytes % (Manual) Nucleated RBC % Seg Neutrophils # Seg Neutrophils # Man 17.0 H Lymphocytes # (Manual) 0.2 L Monocytes # (Manual) PT INR POC ABG pH 7.639 H POC ABG pCO2 25.3 L POC ABG pO2 Sodium Potassium Chloride 90.6 L Carbon Dioxide BUN 65 H Creatinine 3.4 H Glucose POC Glucose Lactic Acid Calcium 7.3 L Phosphorus Magnesium Total Bilirubin Direct Bilirubin AST C-Reactive Protein Total Protein Albumin Urine Creatinine Ur Creatinine 24 Hour Crossmatch 03/07/18 03/08/18 03/08/18 06:32 04:30 11:54 WBC 13.9 H RBC 2.36 L Hgb 7.1 L Hct 21.2 L MCV MCHC RDW 16.5 H Plt Count Lymph % (Auto) [place] % (Auto) Lymph # [place] # Seg Neutrophils % Seg Neuts % (Manual) 91.0 H Lymphocytes % (Manual) 2.0 L Monocytes % (Manual) Nucleated RBC % Seg Neutrophils # Seg Neutrophils # Man 12.6 H Lymphocytes # (Manual) 0.3 L Monocytes # (Manual) PT INR POC ABG pH 7.498 H POC ABG pCO2 30.2 L POC ABG pO2 44 L Sodium Potassium Chloride Carbon Dioxide BUN Creatinine Glucose POC Glucose 121 H Lactic Acid Calcium Phosphorus Magnesium Total Bilirubin Direct Bilirubin AST C-Reactive Protein Total Protein Albumin Urine Creatinine Ur Creatinine 24 Hour Crossmatch 03/08/18 03/08/18 03/09/18 18:29 23:52 05:45 WBC 12.9 H RBC 2.31 L Hgb 6.9 L Hct 20.9 L MCV MCHC RDW 16.7 H Plt Count Lymph % (Auto) 5.5 L [place] % (Auto) Lymph # 0.7 L [place] # Seg Neutrophils % 89.2 H Seg Neuts % (Manual) Lymphocytes % (Manual) Monocytes % (Manual) Nucleated RBC % Seg Neutrophils # 11.5 H Seg Neutrophils # Man Lymphocytes # (Manual) Monocytes # (Manual) PT INR POC ABG pH POC ABG pCO2 POC ABG pO2 Sodium Potassium Chloride Carbon Dioxide BUN Creatinine Glucose POC Glucose 106 H 115 H Lactic Acid Calcium Phosphorus Magnesium Total Bilirubin Direct Bilirubin AST C-Reactive Protein Total Protein Albumin Urine Creatinine Ur Creatinine 24 Hour Crossmatch 03/09/18 03/09/18 03/09/18 06:13 12:00 12:20 WBC RBC Hgb Hct MCV MCHC RDW Plt Count Lymph % (Auto) [place] % (Auto) Lymph # [place] # Seg Neutrophils % Seg Neuts % (Manual) Lymphocytes % (Manual) Monocytes % (Manual) Nucleated RBC % Seg Neutrophils # Seg Neutrophils # Man Lymphocytes # (Manual) Monocytes # (Manual) PT INR POC ABG pH POC ABG pCO2 POC ABG pO2 Sodium Potassium 3.3 L Chloride 82.2 L Carbon Dioxide 19 L D BUN 62 H Creatinine 3.0 H Glucose POC Glucose 122 H 113 H Lactic Acid Calcium 6.1 L D Phosphorus Magnesium Total Bilirubin Direct Bilirubin AST C-Reactive Protein Total Protein Albumin Urine Creatinine Ur Creatinine 24 Hour Crossmatch 03/09/18 03/09/18 03/10/18 13:30 17:38 06:55 WBC RBC 1.94 L Hgb 6.0 L Hct 17.8 L* MCV MCHC RDW 16.6 H Plt Count Lymph % (Auto) 4.6 L [place] % (Auto) Lymph # 0.5 L [place] # Seg Neutrophils % 90.0 H Seg Neuts % (Manual) Lymphocytes % (Manual) Monocytes % (Manual) Nucleated RBC % Seg Neutrophils # 9.1 H Seg Neutrophils # Man Lymphocytes # (Manual) Monocytes # (Manual) PT INR POC ABG pH POC ABG pCO2 POC ABG pO2 Sodium Potassium Chloride Carbon Dioxide BUN Creatinine Glucose POC Glucose Lactic Acid Calcium Phosphorus Magnesium Total Bilirubin Direct Bilirubin AST C-Reactive Protein Total Protein Albumin Urine Creatinine 69.2 H 69.2 H Ur Creatinine 24 Hour 0.3 L Crossmatch 03/10/18 03/10/18 03/10/18 06:55 09:00 12:14 WBC RBC Hgb Hct MCV MCHC RDW Plt Count Lymph % (Auto) [place] % (Auto) Lymph # [place] # Seg Neutrophils % Seg Neuts % (Manual) Lymphocytes % (Manual) Monocytes % (Manual) Nucleated RBC % Seg Neutrophils # Seg Neutrophils # Man Lymphocytes # (Manual) Monocytes # (Manual) PT INR POC ABG pH POC ABG pCO2 POC ABG pO2 Sodium 135 L Potassium Chloride 90.2 L Carbon Dioxide BUN 82 H Creatinine 3.9 H Glucose POC Glucose 107 H Lactic Acid Calcium 7.6 L D Phosphorus Magnesium Total Bilirubin Direct Bilirubin AST C-Reactive Protein Total Protein Albumin Urine Creatinine Ur Creatinine 24 Hour Crossmatch See Detail 03/10/18 03/10/18 03/11/18 18:14 20:02 14:25 WBC RBC Hgb 7.7 L Hct 23.3 L MCV MCHC RDW Plt Count Lymph % (Auto) [place] % (Auto) Lymph # [place] # Seg Neutrophils % Seg Neuts % (Manual) Lymphocytes % (Manual) Monocytes % (Manual) Nucleated RBC % Seg Neutrophils # Seg Neutrophils # Man Lymphocytes # (Manual) Monocytes # (Manual) PT INR POC ABG pH POC ABG pCO2 POC ABG pO2 Sodium Potassium Chloride 94.6 L Carbon Dioxide BUN 69 H Creatinine 3.7 H Glucose POC Glucose 126 H Lactic Acid Calcium 8.0 L Phosphorus Magnesium Total Bilirubin Direct Bilirubin AST C-Reactive Protein Total Protein Albumin Urine Creatinine Ur Creatinine 24 Hour Crossmatch 03/12/18 03/12/18 03/12/18 04:19 05:45 05:45 WBC RBC 2.44 L Hgb 7.4 L Hct 22.6 L MCV MCHC RDW 16.1 H Plt Count Lymph % (Auto) [place] % (Auto) Lymph # [place] # Seg Neutrophils % Seg Neuts % (Manual) Lymphocytes % (Manual) Monocytes % (Manual) Nucleated RBC % Seg Neutrophils # Seg Neutrophils # Man Lymphocytes # (Manual) Monocytes # (Manual) PT INR POC ABG pH POC ABG pCO2 POC ABG pO2 71 L Sodium Potassium Chloride 95.1 L Carbon Dioxide BUN 72 H Creatinine 4.0 H Glucose POC Glucose Lactic Acid Calcium 7.9 L Phosphorus Magnesium Total Bilirubin Direct Bilirubin AST C-Reactive Protein Total Protein Albumin Urine Creatinine Ur Creatinine 24 Hour Crossmatch 03/13/18 03/13/18 03/13/18 06:30 12:38 18:32 WBC RBC Hgb Hct MCV MCHC RDW Plt Count Lymph % (Auto) [place] % (Auto) Lymph # [place] # Seg Neutrophils % Seg Neuts % (Manual) Lymphocytes % (Manual) Monocytes % (Manual) Nucleated RBC % Seg Neutrophils # Seg Neutrophils # Man Lymphocytes # (Manual) Monocytes # (Manual) PT INR POC ABG pH 7.287 L POC ABG pCO2 54.6 H POC ABG pO2 78 L Sodium 136 L Potassium Chloride 91.8 L Carbon Dioxide BUN 76 H Creatinine 4.1 H Glucose POC Glucose 106 H Lactic Acid Calcium 8.0 L Phosphorus Magnesium Total Bilirubin Direct Bilirubin AST C-Reactive Protein Total Protein Albumin Urine Creatinine Ur Creatinine 24 Hour Crossmatch 03/13/18 03/14/18 03/14/18 23:34 05:30 05:30 WBC RBC Hgb Hct MCV MCHC RDW Plt Count Lymph % (Auto) [place] % (Auto) Lymph # [place] # Seg Neutrophils % Seg Neuts % (Manual) Lymphocytes % (Manual) Monocytes % (Manual) Nucleated RBC % Seg Neutrophils # Seg Neutrophils # Man Lymphocytes # (Manual) Monocytes # (Manual) PT INR POC ABG pH POC ABG pCO2 POC ABG pO2 Sodium 135 L Potassium Chloride 87.4 L Carbon Dioxide BUN 60 H Creatinine 3.7 H Glucose 102 H POC Glucose 111 H Lactic Acid Calcium 7.9 L Phosphorus Magnesium 1.60 L Total Bilirubin Direct Bilirubin AST C-Reactive Protein Total Protein Albumin Urine Creatinine Ur Creatinine 24 Hour Crossmatch 03/14/18 03/14/18 03/14/18 08:30 12:10 13:10 WBC RBC 2.58 L Hgb 7.9 L Hct 24.2 L MCV MCHC RDW 16.0 H Plt Count Lymph % (Auto) [place] % (Auto) Lymph # [place] # Seg Neutrophils % Seg Neuts % (Manual) Lymphocytes % (Manual) Monocytes % (Manual) Nucleated RBC % Seg Neutrophils # Seg Neutrophils # Man Lymphocytes # (Manual) Monocytes # (Manual) PT INR POC ABG pH 7.483 H POC ABG pCO2 30.7 L POC ABG pO2 55 L Sodium Potassium Chloride Carbon Dioxide BUN Creatinine Glucose POC Glucose 118 H Lactic Acid Calcium Phosphorus Magnesium Total Bilirubin Direct Bilirubin AST C-Reactive Protein Total Protein Albumin Urine Creatinine Ur Creatinine 24 Hour Crossmatch 03/14/18 03/15/18 03/15/18 18:05 06:45 06:45 WBC RBC 2.39 L Hgb 7.2 L Hct 22.0 L MCV MCHC RDW 16.2 H Plt Count 130 L Lymph % (Auto) 8.7 L [place] % (Auto) 8.7 H Lymph # 0.8 L [place] # Seg Neutrophils % 81.5 H Seg Neuts % (Manual) Lymphocytes % (Manual) Monocytes % (Manual) Nucleated RBC % Seg Neutrophils # Seg Neutrophils # Man Lymphocytes # (Manual) Monocytes # (Manual) PT INR POC ABG pH POC ABG pCO2 POC ABG pO2 Sodium 133 L Potassium Chloride 90.7 L Carbon Dioxide BUN 64 H Creatinine 4.7 H Glucose 118 H POC Glucose 129 H Lactic Acid Calcium 7.9 L Phosphorus Magnesium Total Bilirubin Direct Bilirubin AST 55 H C-Reactive Protein Total Protein 6.2 L Albumin 2.8 L Urine Creatinine Ur Creatinine 24 Hour Crossmatch 07/12/2803/15/18 03/15/18 12:22 18:01 Unknown WBC RBC Hgb Hct MCV MCHC RDW Plt Count Lymph % (Auto) [place] % (Auto) Lymph # [place] # Seg Neutrophils % Seg Neuts % (Manual) Lymphocytes % (Manual) Monocytes % (Manual) Nucleated RBC % Seg Neutrophils # Seg Neutrophils # Man Lymphocytes # (Manual) Monocytes # (Manual) PT INR POC ABG pH POC ABG pCO2 POC ABG pO2 Sodium Potassium Chloride Carbon Dioxide BUN Creatinine Glucose POC Glucose 140 H 162 H Lactic Acid 2.60 H* Calcium Phosphorus Magnesium Total Bilirubin Direct Bilirubin AST C-Reactive Protein Total Protein Albumin Urine Creatinine Ur Creatinine 24 Hour Crossmatch 03/16/18 03/16/18 03/16/18 00:13 05:26 05:45 WBC RBC Hgb Hct MCV MCHC RDW Plt Count Lymph % (Auto) [place] % (Auto) Lymph # [place] # Seg Neutrophils % Seg Neuts % (Manual) Lymphocytes % (Manual) Monocytes % (Manual) Nucleated RBC % Seg Neutrophils # Seg Neutrophils # Man Lymphocytes # (Manual) Monocytes # (Manual) PT INR POC ABG pH POC ABG pCO2 POC ABG pO2 Sodium 128 L Potassium Chloride 85.4 L Carbon Dioxide 21 L BUN 65 H Creatinine 4.8 H Glucose 201 H POC Glucose 141 H 162 H Lactic Acid Calcium 8.0 L Phosphorus Magnesium Total Bilirubin Direct Bilirubin AST C-Reactive Protein Total Protein Albumin Urine Creatinine Ur Creatinine 24 Hour Crossmatch 03/16/18 03/16/18 03/16/18 05:45 05:45 12:03 WBC RBC 2.43 L Hgb 7.5 L Hct 22.5 L MCV MCHC RDW 16.3 H Plt Count Lymph % (Auto) [place] % (Auto) Lymph # [place] # Seg Neutrophils % Seg Neuts % (Manual) 89.0 H Lymphocytes % (Manual) 4.0 L Monocytes % (Manual) Nucleated RBC % Seg Neutrophils # Seg Neutrophils # Man 9.2 H Lymphocytes # (Manual) 0.4 L Monocytes # (Manual) PT INR POC ABG pH POC ABG pCO2 POC ABG pO2 Sodium Potassium Chloride Carbon Dioxide BUN Creatinine Glucose POC Glucose 157 H Lactic Acid Calcium Phosphorus Magnesium Total Bilirubin Direct Bilirubin 0.5 H AST 55 H C-Reactive Protein Total Protein Albumin 2.8 L Urine Creatinine Ur Creatinine 24 Hour Crossmatch 03/17/18 03/17/18 03/17/18 00:03 04:40 04:40 WBC RBC 2.42 L Hgb 7.4 L Hct 22.3 L MCV MCHC RDW 16.1 H Plt Count Lymph % (Auto) [place] % (Auto) Lymph # [place] # Seg Neutrophils % Seg Neuts % (Manual) Lymphocytes % (Manual) Monocytes % (Manual) Nucleated RBC % Seg Neutrophils # Seg Neutrophils # Man Lymphocytes # (Manual) Monocytes # (Manual) PT INR POC ABG pH POC ABG pCO2 POC ABG pO2 Sodium 133 L Potassium 3.4 L Chloride 90.3 L Carbon Dioxide BUN 45 H Creatinine 3.6 H Glucose POC Glucose 108 H Lactic Acid Calcium 8.2 L Phosphorus Magnesium Total Bilirubin Direct Bilirubin AST C-Reactive Protein Total Protein Albumin Urine Creatinine Ur Creatinine 24 Hour Crossmatch 03/17/18 03/18/18 03/18/18 18:14 01:16 05:59 WBC RBC Hgb Hct MCV MCHC RDW Plt Count Lymph % (Auto) [place] % (Auto) Lymph # [place] # Seg Neutrophils % Seg Neuts % (Manual) Lymphocytes % (Manual) Monocytes % (Manual) Nucleated RBC % Seg Neutrophils # Seg Neutrophils # Man Lymphocytes # (Manual) Monocytes # (Manual) PT INR POC ABG pH POC ABG pCO2 POC ABG pO2 Sodium Potassium Chloride Carbon Dioxide BUN Creatinine Glucose POC Glucose 113 H 134 H 137 H Lactic Acid Calcium Phosphorus Magnesium Total Bilirubin Direct Bilirubin AST C-Reactive Protein Total Protein Albumin Urine Creatinine Ur Creatinine 24 Hour Crossmatch 03/18/18 03/18/18 03/19/18 11:35 12:43 00:13 WBC RBC Hgb 7.1 L Hct 21.7 L MCV MCHC RDW Plt Count Lymph % (Auto) [place] % (Auto) Lymph # [place] # Seg Neutrophils % Seg Neuts % (Manual) Lymphocytes % (Manual) Monocytes % (Manual) Nucleated RBC % Seg Neutrophils # Seg Neutrophils # Man Lymphocytes # (Manual) Monocytes # (Manual) PT INR POC ABG pH POC ABG pCO2 POC ABG pO2 Sodium Potassium Chloride Carbon Dioxide BUN Creatinine Glucose POC Glucose 124 H 117 H Lactic Acid Calcium Phosphorus Magnesium Total Bilirubin Direct Bilirubin AST C-Reactive Protein Total Protein Albumin Urine Creatinine Ur Creatinine 24 Hour Crossmatch 03/19/18 03/19/18 03/19/18 04:00 05:35 11:11 WBC 15.3 H RBC 2.30 L Hgb 7.0 L Hct 21.3 L MCV MCHC RDW 16.6 H Plt Count Lymph % (Auto) 4.6 L [place] % (Auto) 11.2 H Lymph # 0.7 L [place] # 1.7 H Seg Neutrophils % 83.5 H Seg Neuts % (Manual) Lymphocytes % (Manual) Monocytes % (Manual) Nucleated RBC % Seg Neutrophils # 12.7 H Seg Neutrophils # Man Lymphocytes # (Manual) Monocytes # (Manual) PT INR POC ABG pH POC ABG pCO2 POC ABG pO2 70 L Sodium Potassium Chloride Carbon Dioxide BUN Creatinine Glucose POC Glucose 110 H Lactic Acid Calcium Phosphorus Magnesium Total Bilirubin Direct Bilirubin AST C-Reactive Protein Total Protein Albumin Urine Creatinine Ur Creatinine 24 Hour Crossmatch 03/19/18 03/19/18 03/19/18 11:42 18:12 23:40 WBC RBC Hgb Hct MCV MCHC RDW Plt Count Lymph % (Auto) [place] % (Auto) Lymph # [place] # Seg Neutrophils % Seg Neuts % (Manual) Lymphocytes % (Manual) Monocytes % (Manual) Nucleated RBC % Seg Neutrophils # Seg Neutrophils # Man Lymphocytes # (Manual) Monocytes # (Manual) PT INR POC ABG pH POC ABG pCO2 POC ABG pO2 Sodium 132 L Potassium Chloride 91.4 L Carbon Dioxide BUN 36 H Creatinine 3.0 H Glucose POC Glucose 120 H 134 H Lactic Acid Calcium 7.9 L Phosphorus Magnesium Total Bilirubin Direct Bilirubin AST C-Reactive Protein Total Protein Albumin Urine Creatinine Ur Creatinine 24 Hour Crossmatch 03/20/18 03/20/18 03/20/18 05:45 05:45 05:55 WBC 15.4 H RBC 2.25 L Hgb 6.7 L Hct 20.7 L MCV MCHC RDW 16.1 H Plt Count Lymph % (Auto) 5.6 L [place] % (Auto) 11.7 H Lymph # 0.9 L [place] # 1.8 H Seg Neutrophils % 81.4 H Seg Neuts % (Manual) Lymphocytes % (Manual) Monocytes % (Manual) Nucleated RBC % Seg Neutrophils # 12.6 H Seg Neutrophils # Man Lymphocytes # (Manual) Monocytes # (Manual) PT INR POC ABG pH POC ABG pCO2 POC ABG pO2 Sodium 133 L Potassium 3.4 L Chloride 92.3 L Carbon Dioxide BUN 30 H Creatinine 2.8 H Glucose 104 H POC Glucose 118 H Lactic Acid Calcium Phosphorus Magnesium Total Bilirubin Direct Bilirubin AST C-Reactive Protein Total Protein Albumin Urine Creatinine Ur Creatinine 24 Hour Crossmatch 03/20/18 03/20/18 09:32 11:28 WBC RBC Hgb Hct MCV MCHC RDW Plt Count Lymph % (Auto) [place] % (Auto) Lymph # [place] # Seg Neutrophils % Seg Neuts % (Manual) Lymphocytes % (Manual) Monocytes % (Manual) Nucleated RBC % Seg Neutrophils # Seg Neutrophils # Man Lymphocytes # (Manual) Monocytes # (Manual) PT INR POC ABG pH POC ABG pCO2 POC ABG pO2 Sodium Potassium Chloride Carbon Dioxide BUN Creatinine Glucose POC Glucose 127 H Lactic Acid Calcium Phosphorus Magnesium Total Bilirubin Direct Bilirubin AST C-Reactive Protein Total Protein Albumin Urine Creatinine Ur Creatinine 24 Hour Crossmatch See Detail Chest x-ray: pending Allied health notes reviewed: RT
[2018-03-20] MEDS: CORDARONE PO SCH (13:56)
--- NOTE | 2018-03-20 14:06 | Discharge Summary ---
Providers - Providers Date of Admission: 02/26/18 01:43 Date of discharge: 03/20/18 Attending physician: MARK GOODMAN 02/26/18 06:38 Consult to Dietitian/Nutrition [CONS] Routine Physician Instructions: Reason For Exam: Reason for Consult: Write/Manage Tube Feeding Consult to Physician [CONS] Urgent Comment: DR BARTHOLOMEW AWARE 0900 Consulting Provider: ONEL CAIN Physician Instructions: Reason For Exam: ARF 02/26/18 06:40 Consult to Dietitian/Nutrition [CONS] Routine Physician Instructions: Assess nutrtn needs, initiate, modify, manage TF Reason For Exam: Reason for Consult: Write/Manage Tube Feeding Reason for Consult: Write/Manage Tube Feeding Consult to Physician [CONS] Routine Comment: A/S NOTIFIED [place] [id number] Consulting Provider: LEXI MENDEZ Physician Instructions: Reason For Exam: Sepsis/Resp failure 02/26/18 06:58 Consult to Dietitian/Nutrition [CONS] Routine Physician Instructions: Reason For Exam: Reason for Consult: Write/Manage TPN/PPN 02/27/18 13:45 Consult to PICC Line RN [CONS] Routine Reason For Exam: Vasopressor administration Type Line:: PICC 02/27/18 14:33 Consult to Physician [CONS] Routine Comment: Consulting Provider: DIONI AWAN Physician Instructions: Reason For Exam: severe sepsis 02/28/18 10:49 Consult to Wound/ET Nurse [CONS] Routine Reason For Exam: wound eval-Sacral ulcer 03/05/18 10:33 Consult to Physician [CONS] Urgent Comment: Consulting Provider: FACUNDO BELL Physician Instructions: Reason For Exam: acute right MCA stroke 03/09/18 18:16 Consult to Physician [CONS] Urgent Comment: per MD Frazier Consulting Provider: NELY PAL Physician Instructions: for trach placement Reason For Exam: Trach placement 03/10/18 12:38 Consult to Physician [CONS] Urgent Comment: Consulting Provider: FACUNDO JORDAN Physician Instructions: Reason For Exam: VASCATH INSERTION 03/13/18 22:03 Consult to Cardiology [CONS] Routine Consulting Provider: ANJELICA GUIDRY Reason For Exam: Afib with RVR Primary care physician: FARA BROWNLEE Hospitalization Reason for admission: worsening shortness of breath and fever Condition: Critical Pertinent studies: CT chest CT abdomen and pelvis Chest x-ray CT head EEG Renal ultrasound Multiple chest x-rays Hospital course: 72-year-old male with history of cerebrovascular accident and hemiplegia, Alzheimer's and nonverbal from [facility] was admitted with altered mental state fever and respiratory failure requiring intubation 03/03: Went into cardiopulmonary arrest. s/p CPR per ACLS protocol , encephalopathy 03/05: Pt had recurrent seizure over the night and CT head showed right MCA acute /subacute stroke and calcified meningioma in the left frontal area 03/12: commenced on renal replacemtn therapy 03/11 Discharge diagnosis: --Anemia; chronic anemia, hemoglobin 6.7, transfused 2 units of PRBC during dialysis --Hypokalemia; replaced per protocol --Acute hypoxic respiratory failure; status post tracheostomy Continue ventilatory support, nebulizers, --Severe sepsis with septic shock;Resolved, --Acute kidney injury; secondary to ATN On hemodialysis, HD per schedule --Metabolic encephalopathy; multifactorial supportive care --Status post cardiac arrest/anoxic encephalopathy; supportive care --Acute/ Subacute right MCA distribution stroke,Supportive care --Meningioma left frontal area 2.8 x 2.2cm, Prophylactic seizure medications with Keppra --Sacral Pressure ulcer, Continue wound care --History of BPH, Continue Finasteride --Hyperlipidemia; statin --DVT prophylaxis; heparin renal dose --Poor prognosis Discharge and transfer to LTAC for further evaluation and management Patient full CODE STATUS Disposition: [id number] MEDICARE CERT [facility] Time spent for discharge: 35 min Core Measure Documentation - Palliative Care Palliative Care/ Comfort Measures: Not Applicable - Core Measures Any of the following diagnoses?: none Exam - Constitutional Vitals: Temp Pulse Resp BP Pulse Ox 98.6 F 108 H 20 97/66 97 03/20/18 13:25 03/20/18 13:27 03/20/18 13:25 03/20/18 13:27 03/20/18 13:25 General appearance: Present: no acute distress, other (tracheostomy on vent) - EENT Eyes: Present: PERRL, EOM intact - Neck Neck: Present: supple, normal ROM - Respiratory Respiratory effort: normal Respiratory: bilateral: diminished, rhonchi, negative: rales, wheezing - Cardiovascular Rhythm: regular Heart Sounds: Present: S1 & S2 - Extremities Extremities: abnormal (contracted) Extremity abnormal: edema - Abdominal General gastrointestinal: Present: soft, non-tender, non-distended, normal bowel sounds - Integumentary Integumentary: Present: clear, warm - Musculoskeletal Musculoskeletal: other (unresponsive) - Psychiatric Psychiatric: other (unresponsive) - Neurologic Neurologic: other (unresponsive) Plan Activity: advance as tolerated Diet: other (tube feeding ) Additional Instructions: Patient is being transferred to LTAC today. Continue all the current management. Hemodialysis per schedule Follow up with: FARA BROWNLEE MD [Primary Care Provider] - 3-5 Days
[2018-03-20] MEDS ORDERED: NACL 0.9 (PRIMING MACHINE ONLY DIALYSIS) MC ONE (16:16)
[2018-03-20 16:30] LABS: Hematocrit 26.5 % (35.5-45.6); Hemoglobin 8.7 gm/dl (11.8-15.2)
[2018-03-20 17:06] VITALS: BP 91/59
== END 2018-03-20 18:07 | DRG 4 ==
LOC: ED 22:51 → CC1 02-26 01:43
PROVIDERS: ADMIT Internal Medicine; ATTEND Internal Medicine
PROC: 5A1955Z Respiratory Ventilation, Greater than 96 Consecutive Hours (ICD-10-PCS; principal; 2018-02-26)
PROC: 0BH17EZ Insertion of Endotracheal Airway into Trachea, Via Natural or Artificial Opening (ICD-10-PCS; 2018-02-26)
PROC: 02HV33Z Insertion of Infusion Device into Superior Vena Cava, Percutaneous Approach (ICD-10-PCS; 2018-02-26)
PROC: 5A09357 Assistance with Respiratory Ventilation, Less than 24 Consecutive Hours, Continuous Positive Airway Pressure (ICD-10-PCS; 2018-02-26)
PROC: 4A033R1 Measurement of Arterial Saturation, Peripheral, Percutaneous Approach (ICD-10-PCS; 2018-02-26)
PROC: 30233N1 Transfusion of Nonautologous Red Blood Cells into Peripheral Vein, Percutaneous Approach (ICD-10-PCS; 2018-03-03)
PROC: 02HV33Z Insertion of Infusion Device into Superior Vena Cava, Percutaneous Approach (ICD-10-PCS; 2018-03-10)
PROC: B548ZZA Ultrasonography of Superior Vena Cava, Guidance (ICD-10-PCS; 2018-03-10)
PROC: 5A1D70Z Performance of Urinary Filtration, Intermittent, Less than 6 Hours Per Day (ICD-10-PCS; 2018-03-10)
PROC: 5A1D70Z Performance of Urinary Filtration, Intermittent, Less than 6 Hours Per Day (ICD-10-PCS; 2018-03-13)
PROC: 5A1D70Z Performance of Urinary Filtration, Intermittent, Less than 6 Hours Per Day (ICD-10-PCS; 2018-03-16)
PROC: 0B113F4 Bypass Trachea to Cutaneous with Tracheostomy Device, Percutaneous Approach (ICD-10-PCS; 2018-03-17)
PROC: 0BJ08ZZ Inspection of Tracheobronchial Tree, Via Natural or Artificial Opening Endoscopic (ICD-10-PCS; 2018-03-17)
PROC: 5A1D70Z Performance of Urinary Filtration, Intermittent, Less than 6 Hours Per Day (ICD-10-PCS; 2018-03-18)
PROC: 5A1D70Z Performance of Urinary Filtration, Intermittent, Less than 6 Hours Per Day (ICD-10-PCS; 2018-03-19)
PROC: 5A1D70Z Performance of Urinary Filtration, Intermittent, Less than 6 Hours Per Day (ICD-10-PCS; 2018-03-20)
DX: A41.9 Sepsis, unspecified organism (principal); J96.01 Acute respiratory failure with hypoxia; R65.21 Severe sepsis with septic shock; I46.9 Cardiac arrest, cause unspecified; N17.0 Acute kidney failure with tubular necrosis; G93.41 Metabolic encephalopathy; I63.9 Cerebral infarction, unspecified; J69.0 Pneumonitis due to inhalation of food and vomit; G81.90 Hemiplegia, unspecified affecting unspecified side; E87.0 Hyperosmolality and hypernatremia; D53.9 Nutritional anemia, unspecified; E87.6 Hypokalemia; D32.9 Benign neoplasm of meninges, unspecified; L89.159 Pressure ulcer of sacral region, unspecified stage; N40.0 Benign prostatic hyperplasia without lower urinary tract symptoms; E78.5 Hyperlipidemia, unspecified; G30.9 Alzheimer's disease, unspecified; F02.80 Dementia in other diseases classified elsewhere, unspecified severity, without behavioral disturbance, psychotic disturbance, mood disturbance, and anxiety; N18.9 Chronic kidney disease, unspecified; I12.9 Hypertensive chronic kidney disease with stage 1 through stage 4 chronic kidney disease, or unspecified chronic kidney disease; E11.22 Type 2 diabetes mellitus with diabetic chronic kidney disease; E86.0 Dehydration; I48.91 Unspecified atrial fibrillation; Z86.73 Personal history of transient ischemic attack (TIA), and cerebral infarction without residual deficits; Z87.442 Personal history of urinary calculi; Z79.82 Long term (current) use of aspirin; Z79.899 Other long term (current) drug therapy
CPT/HCPCS: 36415; 36600; 70450; 71045; 71250; 74176; 76770; 80048; 80053; 80074; 81001; 82140; 82565; 82570; 82575; 82803; 82805; 82962; 83690; 83735; 84100; 84300; 84439; 84443; 85007; 85014; 85018; 85025; 85027; 85610; 86140; 86403; 86706; 86803; 86850; 86900; 86901; 86920; 87040; 87070; 87076; 87086; 87186; 87205; 93005; 93010; 94002; 94003; 94640; 94660; 95819; A9270-GY; J0171; J0282; J1644; J1815; J1953; J1956; J2001; J2020; J2060; J2270; J2540; J2543; J2704; J2765; J3010; J3370; J3475; J3480; J7030; J7040; J7050; J7060; J7070; J7120; P9016; P9047